=== PATIENT | female | born 1945 | race Caucasian/White ===

== ENCOUNTER 2016-04-18 12:29 | Observation (INO) | payer MEDICARE, OTHER ==
[~2016-04-18] VITALS: Ht 160 cm; Wt 54.2 kg
[~2016-04-18 12:29] MED LIST: ACET-789 PO; ADV1DS IH; ALBU2.5V4 NEB; ALBU8.5H2 IH; AMIO200T50 PO; ASP81TEC PO; ASPI-906 PO; ATOR40TA70 PO; BUDE6HFA INH; CALC-722 PO; CETI10TA17 PO; CETI10TA23 PO; CLOP75TA28 PO; CLOP75TA69 PO; CYAN10007 PO; DEXL60CA5 PO; DOCU-161 PO; DOXY100C2 PO; FURO20TA4 PO; HYDR-3714 PO; HYDR-757 PO; IBUP-30 PO; LACT1CAP66 PO; LEVO0.5P2 MC; LEVO50TA6 PO; LISI10TA2 PO; LISI40TA PO; LSNP10T PO; METO50TA2 PO; MTP50T PO; NITR0.4T SL; NYST1000 PO; PANT40SU PO; PRED10TA22 PO; PROM5SYR PO; SLMFT1E INH; TIOT18CA IH; TIOT4MIS2 IH; UBID200C16 PO; [UNRECOGNIZED DRUG - CODE] PO
--- OUTSIDE RECORDS SUMMARY | 2016-04-18 12:36 | XMS REPORT | Continuity of Care Document ---
Author Author [facility] Organization [facility] Address Unknown Phone Unavailable Support Name Relationship Address Phone CHASTITYLEONA HENINNG Porsche JAVIER Caregiver [phone] [facility] [place] [address] WEST MCCAULEY DO Caregiver [address] [place] [address] NORMA ALVARADO FACP CCDS [facility] Caregiver [address] [facility] [place] [address] [place] [address] SUZIE BRADEN Next Of Kin [address] [place] [address] Insurance Providers Payer Name Policy Number Subscriber Name Relationship Wps Medicare [id number] Anatoly White 18 Self / Same As Patient Comm Crossover Enter Ins Name [id number] Anatoly White 18 Self / Same As Patient Advance Directives Directive Response Recorded Date/Time Advance Directives No 04/14/13 2:13pm Health Care Power of Leg Assembler No 04/14/13 2:13pm Organ Donor No 04/14/13 2:13pm Problems No known problems or medical conditions. Medications Medication Dose Route Sig Days/Qty Instructions Order Date Discontinued Date Status Salmeterol Xinafoate/Fluticasone 0 INH BEDTIME 1 Qty 1 PUFF 02/24/13 Discontinued Salmeterol Xinafoate/Fluticasone 1 Puff IH Q AM 1 Qty 02/24/13 Discontinued Calcium Carb & Cit/Vitamin D3 2 Each PO DAILY 60 Qty 02/24/13 Discontinued Dexlansoprazole 60 Mg PO DAILY 30 Qty 02/24/13 04/07/13 Discontinued Lactobacillus Combination No.4 1 Cap PO DAILY 30 Qty 02/24/13 Active Tiotropium [place] 1 Puff IH DAILY 1 Qty 02/24/13 04/07/13 Discontinued Cyanocobalamin 1,000 Mcg PO DAILY 30 Qty 02/24/13 04/07/13 Discontinued Albuterol 2 Puff IH FOUR TIMES DAILY PRN WHEEZING 1 Qty 02/24/1304/07 Discontinued Aspirin 81 Mg PO DAILY 90 Qty 02/24/13 04/07/13 Discontinued Furosemide (Lasix) 20 Mg PO DAILY 30 Qty 02/24/13 04/07/13 Discontinued Ibuprofen 200 Mg PO EVERY 4HRS PRN MILD TO MODERATE PAIN 90 Qty 04/07/13 Discontinued Lisinopril 40 Mg PO DAILY 90 Qty 02/24/13 02/24/13 Discontinued Calcium Carb & Cit/Vitamin D3 1,200 Mg PO DAILY 60 Qty 02/24/13 Discontinued Metoprolol Tartrate (Lopressor) 25 Mg PO TWICE A DAY TAKES 1/2 (25MG) TABLET TWICE DAILY 04/07/13 Active Docusate Sodium 200 Mg PO DAILY 04/07/13 Active Furosemide (Lasix) 20 Mg PO EVERY AFTERNOON 04/07/13 Active Budesonide/Formoterol Fumarate 2 Puff INH TWICE A DAY 04/07/13 Active Tiotropium [place] 1 Cap IH DAILY 04/07/13 Active Atorvastatin Calcium 40 Mg PO BEDTIME 04/07/13 Active Aspirin 81 Mg PO EVERY AFTERNOON 04/07/13 Active Amiodarone Hcl 400 Mg PO DAILY TAKES 2 (200MG) TABLETS DAILY 04/07/13 04/22/13 Discontinued Nitroglycerin 0.4 Mg SL DIRECTED PRN CHEST PAIN 04/07/13 Active Acetaminophen/Hydrocodone Bitart 1-2 Tab PO EVERY 4HRS PRN PAIN NEEDED FOR PAIN 04/07/13 Active Albuterol 2 Puff IH FOUR TIMES DAILY PRN SHORTNESS OF BREATH Active Nystatin 5 Ml PO FOUR TIMES DAILY PLACE 5 ML IN EACH CHEEK HOLD FOR 30 SECONDS THEN SWISH AND SWALLOW 04/07/13 Active Doxycycline Hyclate (Vibramycin) 1 Each PO TWICE A DAY 14 Qty 04/22/13 Active Lisinopril 10 Mg PO DAILY@0900 30 Qty 04/22/13 Active Social History Social History Problem Response Recorded Date/Time Alcohol Use Denies Use 04/14/2013 2:13pm Recreational Drug Use No 04/14/2013 2:13pm Recent Foreign Travel No 04/14/2013 2:13pm Recent Infectious Disease Exposure No 04/14/2013 2:13pm Hospitalization with Isolation Denies 04/22/2013 4:33pm Hospital Discharge Instructions No hospital discharge instructions. Plan of Care No plan of care. Functional Status No functional status results. Allergies, Adverse Reactions, Alerts Allergen Type Severity Reaction Status Last Updated Penicillins ([id number]) Allergy Severe ANAPHYLAXIS Active 02/24/13 Hydrochlorothiazide Allergy Unknown Active 02/24/13 Penicillin g Allergy Unknown Active 02/16/13 Levofloxacin Allergy Unknown Active 02/24/13 Immunizations Name Given Type Date of Pneumonia Vaccine 12/29/08 Historical Date of Influenza Vaccine 02/05/13 Historical Tetanus Booster (TDap) Less than 5yrs Historical Vital Signs No known vital signs results. Results No known relevant diagnostic tests, laboratory data and/or discharge summary. Procedures No known history of procedures. Encounters Encounter Location Date/Time Discharged Recurring [facility] 06/17/14 1:00pm
--- NOTE | 2016-04-18 12:37 | ED Respiratory ---
General Chief Complaint: Respiratory Problems Stated Complaint: CHEST PAIN/SOA Source: patient Exam Limitations: no limitations History of Present Illness Time seen by provider: 12:35 Initial Comments Patient complains of increasing dyspnea and cough productive of yellow-green sputum for the past several days. She denies fevers or chills. Symptoms became much worse today and are associated with a burning in her epigastrium. This is been present since this morning. She has a history of COPD and is on home oxygen. Allergies and Home Medications Allergies Coded Allergies: Penicillins (Verified Allergy, Severe, ANAPHYLAXIS, 02/24/13) hydrochlorothiazide (Verified Allergy, Unknown, 02/24/13) levofloxacin (Verified Allergy, Unknown, 02/24/13) penicillin G (Verified Allergy, Unknown, 02/16/13) Home Medications Acetaminophen with Codeine 1 Each Tablet 1 TAB PO HS (Reported) Albuterol Sulfate 2.5 Mg/3 Ml Vial.neb 2.5 MG NEB 5XD PRN PRN SHORTNESS OF BREATH (Reported) Aspirin 81 Mg Tab.chew 81 MG PO DAILY @ 1700 (Reported) Atorvastatin Calcium 40 Mg Tablet 40 MG PO HS (Reported) Budesonide/Formoterol Fumarate 10.2 Gm Hfa.aer.ad 2 PUFF INH BID (Reported) Cetirizine HCl 10 Mg Tablet 10 MG PO DAILY (Reported) Clopidogrel Bisulfate 75 Mg Tablet #30 75 MG PO DAILY Prescribed by: LEONA COLES on 03/21/16 0843 Furosemide 20 Mg Tablet 20 MG PO EVERY OTHER DAY (Reported) Levothyroxine Sodium 50 Mcg Tablet 50 MCG PO DAILY@1700 (Reported) Lisinopril 10 Mg Tablet 10 MG PO DAILY (Reported) Metoprolol Tartrate 50 Mg Tablet 50 MG PO BID (Reported) Multivits,Stress Formula 1 Each Tablet 1 TAB PO DAILY (Reported) Nitroglycerin 0.4 Mg Btl 0.4 MG SL UD PRN PRN CHEST PAIN (Reported) 1 TAB EVERY 5 MINUTES FOR 3 DOSES NEEDED FOR CHEST PAIN Prednisone 10 Mg Tab.ds.pk #10 10 MG PO DAILY Starting 03-22-16 take 40mg (4 tabs)daily in the am. Then 30mg (3 tabs), then 20mg (2 tabs), then 10mg (1 tab), then stop. Prescribed by: LORIE LEMA on 03/21/16 0935 Promethazine HCl/Codeine 5 Ml Syrup 5-10 ML PO TID PRN PRN COUGH (Reported) Tiotropium [place] 4 Gm Mist.inhal 2 PUFF IH DAILY (Reported) Ubidecarenone 200 Mg Capsule 200 MG PO DAILY (Reported) Constitutional: No fever, malaise weakness EENTM: no symptoms reported Respiratory: cough dyspnea on exertion short of breath wheezing Cardiovascular: chest pain Gastrointestinal: abdominal pain Genitourinary: no symptoms reported Musculoskeletal: no symptoms reported All Other Systems Reviewed Negative Unless Noted: Yes Past Vtujbjo-Xxxvgk-Hzlzvy Hx Patient Social History Type Used: Cigarettes Former Smoker/When Quit: Jul 11, 2012 Immunizations Up To Date Tetanus Booster (TDap): Less than 5yrs Date of Pneumonia Vaccine: Dec 11, 2015 Date of Influenza Vaccine: Jan 11, 2016 Surgeries HX Surgeries: Yes Respiratory Hx Respiratory Disorders: Yes Respiratory Disorders: COPD Cardiovascular Hx Cardiac Disorders: Yes Neurological Hx Neurological Disorders: Yes (ANXIETY) Reproductive System Hx Reproductive Disorders: Yes (26 YRS. 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) HEENT Disorders: Cataract Loss of Vision: Denies Cancer Hx Cancer: No Psychosocial Hx Psychiatric Problems: No Integumentary HX Skin/Integumentary Disorder: No Reviewed Nursing Assessment Reviewed/Agree w Nursing PMH: Yes Family Medical History Family Medial History: Chest pain 09 SISTER Congestive heart failure G-MA Family history: Cardiovascular disease 03 FATHER (68) 09 SISTER Family history: Hypertension 03 FATHER 09 SISTER G-MA Stroke Physical Exam Vital Signs Vital Sign - Last 12Hours 04/18/16 04/18/16 12:33 12:59 Temp 97.2 Pulse 87 Resp 22 B/P 201/106 Pulse Ox 79 O2 Delivery Nasal Cannula O2 Flow Rate 3 FiO2 2 Capillary Refill : General Appearance: WD/WN mild distress Eyes: Bilateral Eye EOMI, Bilateral Eye Normal Inspection, Bilateral Eye PERRL HEENT: pharynx normal Neck: supple Respiratory: decreased breath soundsNo rales, wheezing Cardiovascular: regular rate, rhythm no gallop Gastrointestinal: non tender soft Extremities: normal inspection Neurologic/Psychiatric: alert normal mood/affect Skin: normal color warm/dry Progress/Results/Core Measures Results/Orders Lab Results Laboratory Tests Test 04/18/16 12:45 04/18/16 13:00 Range/Units Activated Partial Thromboplast Time 26 24-35 SEC Alanine Aminotransferase (ALT/SGPT) 28 0-55 U/L Albumin 4.0 3.2-4.5 G/DL Alkaline Phosphatase 76 40-136 U/L Anion Gap 9 5-14 MMOL/L Aspartate Amino Transf (AST/SGOT) 18 5-34 U/L B-Type Natriuretic Peptide 481.4 H <100.0 PG/ML BUN/Creatinine Ratio 16 Basophils # (Auto) 0.0 0.0-0.1 10^3/uL Basophils (%) (Auto) 0 0-10 % Blood Urea Nitrogen 14 7-18 MG/DL Calcium Level 8.7 8.5-10.1 MG/DL Carbon Dioxide Level 38 H 21-32 MMOL/L Chloride Level 94 L 98-107 MMOL/L Creatinine 0.88 0.60-1.30 MG/DL Eosinophils # (Auto) 0.6 H 0.0-0.3 10^3/uL Eosinophils (%) (Auto) 5 0-10 % Estimat Glomerular Filtration Rate > 60 Glucose Level 152 H 70-105 MG/DL Hematocrit 41 35-52 % Hemoglobin 12.3 11.5-16.0 G/DL INR Comment 0.9 0.8-1.4 Lymphocytes # (Auto) 1.4 1.0-4.0 X 10^3 Lymphocytes (%) (Auto) 13 12-44 % Magnesium Level 2.1 1.8-2.4 MG/DL Mean Corpuscular Hemoglobin 30 25-34 PG Mean Corpuscular Hemoglobin Concent 30 L 32-36 G/DL Mean Corpuscular Volume 100 H 80-99 FL Mean Platelet Volume 10.3 7.4-10.4 FL Monocytes # (Auto) 1.0 0.0-1.0 X 10^3 Monocytes (%) (Auto) 10 0-12 % Neutrophils # (Auto) 7.5 1.8-7.8 X 10^3 Neutrophils (%) (Auto) 71 42-75 % Platelet Count 287 130-400 10^3/uL Potassium Level 3.9 3.6-5.0 MMOL/L Prothrombin Time 11.9 L 12.2-14.7 SEC Red Blood Count 4.06 L 4.35-5.85 10^6/uL Red Cell Distribution Width 14.1 10.0-14.5 % Sodium Level 141 135-145 MMOL/L Total Bilirubin 0.6 0.1-1.0 MG/DL Total Protein 7.1 6.4-8.2 G/DL Troponin I < 0.30 <0.30 NG/ML White Blood Count 10.5 4.3-11.0 10^3/uL Bruce Test POSITIVE Arterial Blood Base Excess 12.9 H -2.5-2.5 MMOL/L Arterial Blood HCO3 41 *H 23-27 MMOL/L Arterial Blood Oxygen Saturation 92 L 94-100 % Arterial Blood Partial Pressure CO2 70 H 35-45 MMHG Arterial Blood Partial Pressure O2 56 L 79-93 MMHG Arterial Blood Total CO2 43.2 H 21.0-31.0 MMOL/L Arterial Blood pH 7.39 7.37-7.43 Blood Gas Inspired Oxygen 2 Blood Gas Patient Temperature 97.2 Blood Gas Puncture Site LEFT BRACHIAL Blood Gas Ventilator Setting NO My Orders Orders-JANICE BUITRAGO MD Cbc With Automated Diff (04/18/16 12:33) Magnesium (04/18/16 12:33) Chest 1 View, Ap/Pa Only (04/18/16 12:33) Ekg Tracing (04/18/16 12:33) Cardiac Profile 1 (04/18/16 12:33) Comprehensive Metabolic Panel (04/18/16 12:33) Protime With Inr (04/18/16 12:33) Partial Thromboplastin Time (04/18/16 12:33) O2 (04/18/16 12:33) Monitor-Rhythm Ecg Trace Only (04/18/16 12:33) Saline Lock/Iv-Start (04/18/16 12:33) BNP (04/18/16 12:33) Arterial Blood Gas (04/18/16 13:01) Albuterol/Ipra Inhalation Soln (Duoneb I (04/18/16 12:45) Svn Sm Volume Nebulizer Rt-Rfs (04/18/16 12:37) Methylprednisolone Sod Succ (Solu-Medrol (04/18/16 13:30) Medications Given in ED Current Medications Medications Dose Ordered Sig/Imelda Route Start Time Stop Time Status Last Admin Dose Admin Albuterol/ Ipratropium 3 ml ONCE ONCE INH 04/18/16 12:45 04/18/16 12:46 DC 04/18/16 12:54 3 ML Vital Signs/I&O Vital Sign - Last 12Hours 04/18/16 04/18/16 04/18/16 12:33 12:38 12:59 Temp 97.2 Pulse 87 Resp 22 B/P 201/106 Pulse Ox 79 O2 Delivery Nasal Cannula Nasal Cannula OxyMask O2 Flow Rate 3 5 FiO2 2 Progress Note : Time: 13:35 Progress Note Patient much more comfortable, breathing okay on oximask. Chest pain is resolved now that oxygen saturation is improved and blood pressures down. Admit for observation ECG Initial ECG Rhythm: Normal Sinus Initial ECG Intervals: Normal Initial ECG Impression: Nonspecific Changes Comment Left ventricular hypertrophy Diagnostic Imaging Comments Test x-ray shows COPD changes but nothing acute Departure Communication Time/Spoke to Admitting Phy: 13:[address] Mccauley who agrees to admit Impression Impression: Primary Impression: Acute exacerbation of chronic obstructive pulmonary disease (COPD) Additional Impression: Chest pain Disposition: ADMITTED INPATIENT Condition: Stable Decision to Admit Reason: Admit from ER (General) Decision to Admit/Date: Apr 18, 2016 Time/Decision to Admit Time: 13:36 Departure-Patient Inst. Referrals: WEST MCCAULEY DO (PCP/Family) Primary Care Physician JANICE BUITRAGO MD Apr 18, 2016 12:37
[2016-04-18] MEDS ORDERED: RT-ALBUTEROL/IPRATROPIUM 3 ML (DUONEB) VIAL INH ONE (12:45)
[2016-04-18 12:52] LABS: BASOPHILS % (AUTO) 0 % (0-10); EOSINOPHILS # (AUTO) 0.6 10^3/uL (0.0-0.3); EOSINOPHILS % (AUTO) 5 % (0-10); LYMPHOCYTES # (AUTO) 1.4 X 10^3 (1.0-4.0); LYMPHOCYTES % (AUTO) 13 % (12-44); MEAN CORPUSCULAR HEMOGLOBIN 30 PG (25-34); MEAN CORPUSCULAR HGB CONC 30 G/DL (32-36); MEAN CORPUSCULAR VOLUME 100 FL (80-99); MEAN PLATELET VOLUME 10.3 FL (7.4-10.4); MONOCYTES % (AUTO) 10 % (0-12); NEUTROPHILS # (AUTO) 7.5 X 10^3 (1.8-7.8); NEUTROPHILS % (AUTO) 71 % (42-75); PLATELET COUNT 287 10^3/uL (130-400); RED BLOOD COUNT 4.06 10^6/uL (4.35-5.85); RED CELL DISTRIBUTION WIDTH 14.1 % (10.0-14.5); WHITE BLOOD COUNT 10.5 10^3/uL (4.3-11.0)
[2016-04-18 13:01] LABS: INR 0.9 (0.8-1.4); PROTHROMBIN TIME PATIENT 11.9 SEC (12.2-14.7)
[2016-04-18 13:09] LABS: ALANINE AMINOTRANSFERASE 28 U/L (0-55); ANION GAP 9 MMOL/L (5-14); ASPARTATE AMINO TRANSFERASE 18 U/L (5-34); BILIRUBIN,TOTAL 0.6 MG/DL (0.1-1.0); BLOOD UREA NITROGEN 14 MG/DL (7-18); BUN/CREATININE RATIO 16; CALCIUM 8.7 MG/DL (8.5-10.1); CARBON DIOXIDE 38 MMOL/L (21-32); CHLORIDE 94 MMOL/L (98-107); CREATININE SERUM 0.88 MG/DL (0.60-1.30); GFR ESTIMATED > 60; GLUCOSE 152 MG/DL (70-105); MAGNESIUM 2.1 MG/DL (1.8-2.4); POTASSIUM 3.9 MMOL/L (3.6-5.0); SODIUM 141 MMOL/L (135-145); TOTAL PROTEIN 7.1 G/DL (6.4-8.2)
[2016-04-18 13:10] LABS: ABG BASE EXCESS 12.9 MMOL/L (-2.5-2.5); ABG OXYGEN SATURATION 92 % (94-100); ABG PCO2 70 MMHG (35-45); ABG PH 7.39 (7.37-7.43); ABG PO2 56 MMHG (79-93); ABG TCO2 43.2 MMOL/L (21.0-31.0)
[2016-04-18 13:11] LABS: ABG HCO3 41 MMOL/L (23-27); ALLENS TEST POSITIVE
[2016-04-18 13:12] LABS: PATIENT TEMP 97.2
[2016-04-18] MEDS ORDERED: methylPREDNISolone 125 MG (Solu-MEDROL) VIAL IVP ONE (13:30)
--- NOTE | 2016-04-18 13:31 | Diagnostic Imaging Report ---
INDICATION: Chest pain, shortness of air for the past few days. COMPARISON STUDY: Chest from March 21. FINDINGS: Portable upright view of the chest demonstrates previous coronary bypass graft changes. The heart size and vascularity are normal. COPD changes are again identified. There are no focal abnormalities. IMPRESSION: Stable chest with COPD. Dictated by: Dictated on workstation # [id number]
[2016-04-18 14:15] VITALS: BP 158/67
[2016-04-18] MEDS ORDERED: FURO20TA4 PO (15:00)
[2016-04-18] MEDS ORDERED: PANT40TA3 PO (15:00)
[2016-04-18] MEDS ORDERED: ACET1TAB43 PO (15:00)
[2016-04-18] MEDS ORDERED: CATHETER FLUSH 10 ML SYR IV PRN (15:00)
[2016-04-18] MEDS ORDERED: CODE118S2 PO (15:00)
[2016-04-18] MEDS ORDERED: CLOP75TA69 PO (15:00)
[2016-04-18 16:00] VITALS: BP 169/82
[2016-04-18] MEDS ORDERED: RT-ALBUTEROL SULF 2.5 MG/3 ML PRE-MIX VIAL INH PRN (16:00)
[2016-04-18] MEDS ORDERED: ASPIRIN 81 MG CHEW (CHILDREN'S ASA) PO SCH (17:00)
[2016-04-18] MEDS: ENOXAPARIN 60 MG/0.6 ML (LOVENOX) SYR SC SCH (18:24)
[2016-04-18] MEDS ORDERED: NITROGLYCERIN SUBLINGUAL 0.4 MG TAB (NITROSTAT) SL PRN (18:30)
[2016-04-18] MEDS ORDERED: PROMETHAZINE/ CODEINE SYRUP 5 ML UDC PO PRN (18:30)
--- NOTE | 2016-04-18 18:36 | History & Physicial ---
History of Present Illness History of Present Illness Reason for visit/HPI patient called the office stating that pressure was 209/111. Patient complaining of shortness of breath and chest pain with exertion. Patient had a stent put in last month Patient states with exertion she had short of breath and chest painarea Patient has COPD and on oxygen. Review surgery stent, open heart and hysterectomy and cataracts. Family history heart disease and family area Lungs short of breath with exertion. Heart pressure in the chest. Patient admitted Date of Admission Apr 18, 2016 at 13:38 I consulted on this patient on 04/18/16 18:31 Attending Physician Sanju Mccauley DO Admitting Physician Sanju Mccauley DO Consult Allergies and Home Medications Allergies Coded Allergies: Penicillins (Verified Allergy, Severe, ANAPHYLAXIS, 02/24/13) hydrochlorothiazide (Verified Allergy, Unknown, 02/24/13) levofloxacin (Verified Allergy, Unknown, 02/24/13) penicillin G (Verified Allergy, Unknown, 02/16/13) Home Medications Acetaminophen with Codeine 1 Each Tablet 1 TAB PO HS (Reported) Albuterol Sulfate 2.5 Mg/3 Ml Vial.neb 2.5 MG NEB 5XD PRN PRN SHORTNESS OF BREATH (Reported) Aspirin 81 Mg Tab.chew 81 MG PO HS (Reported) Atorvastatin Calcium 40 Mg Tablet 40 MG PO HS (Reported) Budesonide/Formoterol Fumarate 10.2 Gm Hfa.aer.ad 2 PUFF INH BID (Reported) Cetirizine HCl 10 Mg Tablet 10 MG PO HS (Reported) Clopidogrel Bisulfate 75 Mg Tablet 75 MG PO DAILY (Reported) Furosemide 20 Mg Tablet 20 MG PO Q48H (Reported) Levothyroxine Sodium 50 Mcg Tablet 50 MCG PO 1700 (Reported) Lisinopril 10 Mg Tablet 10 MG PO DAILY (Reported) Metoprolol Tartrate 50 Mg Tablet 50 MG PO BID (Reported) Multivits,Stress Formula 1 Each Tablet 1 TAB PO DAILY (Reported) Nitroglycerin 0.4 Mg Btl 0.4 MG SL UD PRN PRN CHEST PAIN (Reported) 1 TAB EVERY 5 MINUTES FOR 3 DOSES NEEDED FOR CHEST PAIN Pantoprazole Sodium 40 Mg Tablet.dr 40 MG PO DAILY (Reported) Promethazine HCl/Codeine 118 Ml Syrup 10 ML PO TID PRN PRN COUGH (Reported) Tiotropium [place] 4 Gm Mist.inhal 2 PUFF IH DAILY (Reported) Ubidecarenone 200 Mg Capsule 200 MG PO DAILY (Reported) Past Fzwobgy-Znapdw-Dtnvis Hx Patient Social History Marrital Status: Employed/Student: unemployed Alcohol Use: Denies Use Recreational Drug Use: No Smoking Status: Former Smoker Former smoker/When Quit: Jul 11, 2012 Type Used: Cigarettes Physical Abuse Screen: No Sexual Abuse: No Recent Foreign Travel: No Contact w/other who traveled: No Recent Hopitalizations: No Recent Infectious Disease Expo: No Immunizations Up To Date Tetanus Booster (TDap): Less than 5yrs Date of Pneumonia Vaccine: Feb 07, 2016 Date of Influenza Vaccine: Feb 07, 2016 Seasonal Allergies Seasonal Allergies: No Surgeries HX Surgeries: Yes (CARDIAC CATH) Surgeries: CABG Respiratory Hx Respiratory Disorders: Yes Respiratory Disorders: COPD Cardiovascular Hx Cardiovascular Disorders: Yes Cardiac Disorders: Coronary Artery Disease, Hypertension Neurological Hx Neurological Disorders: Yes (ANXIETY) Reproductive System Hx Reproductive Disorders: Yes (26 YRS. 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) HEENT Disorders: Cataract Loss of Vision: Denies Hearing Impairment: Denies Cancer Hx Cancer: No Psychosocial Hx Psychiatric Problems: No Integumentary HX Skin/Integumentary Disorder: No Blood Transfusions Adverse Reaction to a Blood Tr: No Reviewed Nursing Assessment Reviewed/Agree w Nursing PMH: Yes Family Medical History Family Hx: Chest pain 09 SISTER Congestive heart failure G-MA Family history: Cardiovascular disease 03 FATHER (68) 09 SISTER Family history: Hypertension 03 FATHER 09 SISTER G-MA Stroke Constitutional: weakness EENTM: no symptoms reported Respiratory: dyspnea on exertion short of breath Cardiovascular: chest pain Gastrointestinal: no symptoms reported Genitourinary: no symptoms reported Physical Exam Vital Signs Vital Sign - Last 12Hours 04/18/16 04/18/16 12:33 12:59 Temp 97.2 Pulse 87 Resp 22 B/P 201/106 Pulse Ox 79 O2 Delivery Nasal Cannula O2 Flow Rate 3 FiO2 2 Capillary Refill : Less Than 3 Seconds General Appearance: No Apparent Distress Thin Eyes: Bilateral Eye Normal Inspection HEENT: Normal ENT Inspection Neck: Normal Inspection Respiratory: No Accessory Muscle Use No Respiratory Distress Decreased Breath Sounds Cardiovascular: Regular Rate, Rhythm Gastrointestinal: Non Tender Soft Assessment/Plan Assessment and Plan malignant hypertension. COPD with acute exacerbation. Chest pain. Coronary artery disease Stent put in less than a month ago coronary. Hyperlipidemia Clinical Quality Measures DVT/VTE Risk/Contraindication: Risk Factor Score Per Nursin RFS Level Per Nursing on Admit: 4+=Very High SANJU MCCAULEY DO Apr 18, 2016 18:36
[2016-04-18] MEDS: RT-ADVAIR HFA 115/21 MCG PER PUFF IH SCH (19:08)
[2016-04-18] MEDS: RT-ALBUTEROL SULF 2.5 MG/3 ML PRE-MIX VIAL INH SCH ×2 (19:08→22:16)
[2016-04-18 20:00] VITALS: BP 163/78
[2016-04-18] MEDS: AZITHROMYCIN IV ADD-VANTAGE 500 MG in SODIUM CHLORIDE (ADD-VANTAGE) 250 ML IV SCH (20:11)
[2016-04-18] MEDS: meTOprolol TARTRATE 50 MG (LOPRESSOR) TAB PO SCH (20:26)
[2016-04-18] MEDS ORDERED: LORATADINE (CLARITIN) 10 MG TAB PO SCH (21:00)
[2016-04-18] MEDS ORDERED: APAP 300 MG/CODEINE 30 MG (TYLENOL #3) TAB PO SCH (21:00)
[2016-04-18] MEDS ORDERED: ATORVASTATIN 40 MG (LIPITOR) TABLET PO SCH (21:00)
[2016-04-18] MEDS: methylPREDNISolone 125 MG (Solu-MEDROL) VIAL IVP SCH (22:37)
[2016-04-18] MEDS: CATHETER FLUSH 10 ML SYR IV SCH (22:38)
[2016-04-19 00:25] VITALS: BP 143/82
[2016-04-19] MEDS: RT-ALBUTEROL SULF 2.5 MG/3 ML PRE-MIX VIAL INH SCH ×4 (02:10→14:46)
[2016-04-19] MEDS: ENOXAPARIN 60 MG/0.6 ML (LOVENOX) SYR SC SCH (04:21)
[2016-04-19 04:35] VITALS: BP 116/62
[2016-04-19] MEDS: methylPREDNISolone 125 MG (Solu-MEDROL) VIAL IVP SCH ×2 (06:07→14:00)
[2016-04-19] MEDS: CATHETER FLUSH 10 ML SYR IV SCH ×2 (06:07→14:00)
[2016-04-19 06:37] LABS: BASOPHILS % (AUTO) 0 % (0-10); EOSINOPHILS % (AUTO) 0 % (0-10); LYMPHOCYTES # (AUTO) 0.5 X 10^3 (1.0-4.0); LYMPHOCYTES % (AUTO) 6 % (12-44); MEAN CORPUSCULAR HEMOGLOBIN 30 PG (25-34); MEAN CORPUSCULAR HGB CONC 31 G/DL (32-36); MEAN CORPUSCULAR VOLUME 98 FL (80-99); MEAN PLATELET VOLUME 10.6 FL (7.4-10.4); MONOCYTES # (AUTO) 0.2 X 10^3 (0.0-1.0); MONOCYTES % (AUTO) 3 % (0-12); NEUTROPHILS # (AUTO) 8.1 X 10^3 (1.8-7.8); NEUTROPHILS % (AUTO) 92 % (42-75); PLATELET COUNT 282 10^3/uL (130-400); RED BLOOD COUNT 4.04 10^6/uL (4.35-5.85); RED CELL DISTRIBUTION WIDTH 13.8 % (10.0-14.5); WHITE BLOOD COUNT 8.9 10^3/uL (4.3-11.0)
[2016-04-19] MEDS ORDERED: MULTIVIT W/MINERALS TAB (THERAGRAN M) PO SCH (07:00)
[2016-04-19] MEDS ORDERED: PANTOPRAZOLE 40 MG (PROTONIX) TAB PO SCH (07:00)
[2016-04-19 07:05] LABS: ALANINE AMINOTRANSFERASE 27 U/L (0-55); ALBUMIN 4.1 G/DL (3.2-4.5); ANION GAP 9 MMOL/L (5-14); ASPARTATE AMINO TRANSFERASE 20 U/L (5-34); BILIRUBIN,TOTAL 0.5 MG/DL (0.1-1.0); BLOOD UREA NITROGEN 13 MG/DL (7-18); BUN/CREATININE RATIO 15; CALCIUM 9.2 MG/DL (8.5-10.1); CARBON DIOXIDE 34 MMOL/L (21-32); CHLORIDE 97 MMOL/L (98-107); CREATININE SERUM 0.86 MG/DL (0.60-1.30); GFR ESTIMATED > 60; GLUCOSE 174 MG/DL (70-105); POTASSIUM 4.1 MMOL/L (3.6-5.0); SODIUM 140 MMOL/L (135-145)
[2016-04-19] MEDS: RT-ADVAIR HFA 115/21 MCG PER PUFF IH SCH (07:15)
[2016-04-19 07:49] LABS: BAND NEUTROPHILS 0 %; BASOPHILS % (MANUAL) 0 %; EOSINOPHILS % (MANUAL) 0 %; LYMPHOCYTES % (MANUAL) 5 %; NEUTROPHILS % (MANUAL) 93 %
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
[2016-04-19 08:00] VITALS: BP 164/78
[2016-04-19] MEDS ORDERED: FUROSEMIDE 20 MG (LASIX) TAB PO NR (08:00)
[2016-04-19] MEDS ORDERED: UMECLIDINIUM BROMIDE (INCRUSE ELLIPTA) 7'S IH SCH ×2 (08:00)
[2016-04-19] MEDS ORDERED: lisINopril 10 MG (PRINIVIL) TAB PO SCH (09:00)
[2016-04-19] MEDS ORDERED: CLOPIDOGREL 75 MG (PLAVIX) TABLET PO SCH (09:00)
[2016-04-19] MEDS ORDERED: NON-FORMULARY MEDICATION 1 EA EA (Ubidecarenone (Co Q-10) 200 MG) PO SCH (09:00)
[2016-04-19] MEDS: AZITHROMYCIN IV ADD-VANTAGE 500 MG in SODIUM CHLORIDE (ADD-VANTAGE) 250 ML IV SCH (09:01)
[2016-04-19] MEDS: meTOprolol TARTRATE 50 MG (LOPRESSOR) TAB PO SCH (09:06)
--- NOTE | 2016-04-19 11:02 | Consultation-Cardiology ---
HPI-Cardiology Cardiology Consultation: Date of Consultation 04/19/16 Date of Admission Attending Physician Sanju Morris DO Admitting Physician Sanju Morris DO Consulting Physician Melanie LOU MD HPI: Chief Complaint: chest pressure, shortness of breath this is a pleasant 71-year-old lady who is a patient of Dr. Morris and Dr. Pal. She has a history of CABG in [place] in 2012. She also has history of peripheral arterial disease treated with MASON LINER/stents by Dr. Pal. she presents with shortness of breath and chest pressure. The chest pressure is not similar to the chest pain that she had before cardiac surgery. She also complains of cough. Review of Systems-Cardiology Review of Systems Constitutional: No As described under HPI, No no symptoms reported, No chills, No fever, No lightheadedness, No malaise, No tiredness, No weight loss, No weight gain, No other Eyes: No As described under HPI, No no symptoms reported, No blindness, No blurred vision, No contact lenses, No drainage, No decreased acuity, No foreign body sensation, No glasses, No inflammation, No pain, No photophobia, No previous injury, No shadows, No tunnel vision, No other, No vision change Ears/Nose/Throat: No As described under HPI, No no symptoms reported, No chronic hearing loss, No epistaxis, No ear discharge, No ear pain, No loose teeth, No mouth pain, No mouth swelling, No nasal drainage, No nose pain, No recent hearing loss, No throat pain, No throat swelling, No ulcerations, No other Respiratory: cough shortness of breath Cardiovascular: No no symptoms reported, No As described under HPI, chest painNo edema, No irregular heart rate, No lightheadedness, No palpitations, No syncope, No other Gastrointestinal: No no symptoms reported, No As described under HPI, No abdomen distended, No abdominal pain, No blood streaked bowels, No constipation , No diarrhea, No difficulty swallowing, No nausea, No poor appetite, No poor fluid intake, No rectal bleeding, No vomiting, No other, No nausea/vomiting/ diarrhea, No stool coloration changes Genitourinary: No no symptoms reported, No As described under HPI, No burning, No dysuria, No discharge, No frequency, No flank pain, No hematuria, No incontinence, No pain, No urgency, No other, No urine frequency changes, No urine coloration changes Musculoskeletal: No no symptoms reported, No As describe under HPI, No back pain, No gout, No joint pain, No joint swelling, No muscle pain, No muscle stiffness, No neck pain, No other Skin: No no symptoms reported, No As described under HPI, No change in color, No change in hair/nails, No dryness, No lesions, No lumps, No rash, No other, No skin related problems, No ulcerations, No rash on exposed areas, No ulcerations on exposed areas Psychiatric/Neurological: No As described under HPI, No anxiety, No depression , No emotional problems, No focal weakness, No headache, No no symptoms reported , No numbness, No other, No pre-existing deficit, No seizure, No syncope, No tingling, No tremors, No weakness All Other Systems Reviewed Negative Unless Noted: Yes SCL-Ldrpme-Xlquzl Hx Patient Social History Marrital Status: Employed/Student: unemployed Alcohol Use: Denies Use Recreational Drug Use: No Smoking Status: Former Smoker Former smoker/When Quit: Jul 11, 2012 Type Used: Cigarettes Recent Foreign Travel: No Recent Infectious Disease Expo: No Hospitalization with Isolation: Denies Physical Abuse Screen: No Sexual Abuse: No Immunizations Up To Date Tetanus Booster (TDap): Less than 5yrs Date of Pneumonia Vaccine: Feb 07, 2016 Date of Influenza Vaccine: Feb 07, 2016 Past Medical History PMH As described under Assessment. Family Medical History Family History: Chest pain 09 SISTER Congestive heart failure G-MA Family history: Cardiovascular disease 03 FATHER (68) 09 SISTER Family history: Hypertension 03 FATHER 09 SISTER G-MA Stroke Allergies and Home Medications Allergies Coded Allergies: Penicillins (Verified Allergy, Severe, ANAPHYLAXIS, 02/24/13) hydrochlorothiazide (Verified Allergy, Unknown, 02/24/13) levofloxacin (Verified Allergy, Unknown, 02/24/13) penicillin G (Verified Allergy, Unknown, 02/16/13) Home Medications Acetaminophen with Codeine 1 Each Tablet 1 TAB PO HS (Reported) Albuterol Sulfate 2.5 Mg/3 Ml Vial.neb 2.5 MG NEB 5XD PRN PRN SHORTNESS OF BREATH (Reported) Aspirin 81 Mg Tab.chew 81 MG PO HS (Reported) Atorvastatin Calcium 40 Mg Tablet 40 MG PO HS (Reported) Budesonide/Formoterol Fumarate 10.2 Gm Hfa.aer.ad 2 PUFF INH BID (Reported) Cetirizine HCl 10 Mg Tablet 10 MG PO HS (Reported) Clopidogrel Bisulfate 75 Mg Tablet 75 MG PO DAILY (Reported) Furosemide 20 Mg Tablet 20 MG PO Q48H (Reported) Levothyroxine Sodium 50 Mcg Tablet 50 MCG PO 1700 (Reported) Lisinopril 10 Mg Tablet 10 MG PO DAILY (Reported) Metoprolol Tartrate 50 Mg Tablet 50 MG PO BID (Reported) Multivits,Stress Formula 1 Each Tablet 1 TAB PO DAILY (Reported) Nitroglycerin 0.4 Mg Btl 0.4 MG SL UD PRN PRN CHEST PAIN (Reported) 1 TAB EVERY 5 MINUTES FOR 3 DOSES NEEDED FOR CHEST PAIN Pantoprazole Sodium 40 Mg Tablet.dr 40 MG PO DAILY (Reported) Promethazine HCl/Codeine 118 Ml Syrup 10 ML PO TID PRN PRN COUGH (Reported) Tiotropium [place] 4 Gm Mist.inhal 2 PUFF IH DAILY (Reported) Ubidecarenone 200 Mg Capsule 200 MG PO DAILY (Reported) Physical Exam-Cardiology Physical Exam Vital Signs/I&O Vital Sign - Last 12Hours 04/19/16 04/19/16 04/19/16 04/19/16 00:25 02:10 04:35 07:16 Temp 97.2 97.4 Pulse 75 77 Resp 20 20 B/P 143/82 116/62 Pulse Ox 97 95 96 94 O2 Delivery Nasal Cannula Nasal Cannula Nasal Cannula Nasal Cannula O2 Flow Rate 3.00 3.00 FiO2 3 04/19/16 04/19/16 04/19/16 04/19/16 07:19 08:00 09:00 10:36 Temp 97.8 Pulse 95 Resp 20 B/P 164/78 Pulse Ox 94 92 95 O2 Delivery Nasal Cannula Nasal Cannula Nasal Cannula Nasal Cannula O2 Flow Rate 3.00 4.00 FiO2 3 3 04/19/16 10:38 Pulse Ox 94 O2 Delivery Nasal Cannula FiO2 3 Intake and Output 04/19/16 00:00 Intake Total 1132 ml Balance 1132 ml Capillary Refill : Less Than 3 Seconds Constitutional: No appears stated age, No AAO x 3, No apparent distress, No PERRL, No well-developed, No well-nourished, No other HEENT: No PERRL, No normal ENT inspection, No TMs normal, No pharynx normal, No scleral icterus (R), No scleral icterus (L), No pale conjunctivae (R), No pale conjunctivae (L), No photophobia, No TM abnormal (R), No TM abnormal (L), No pharyngeal erythema, No tonsillar exudate, No other, No discharge, No EOMI, No hearing is well preserved, No hard of hearing, No oral hygience is good, No ulceration, No xanthelasmas are seen Neck: No non-tender, No full range of motion, No supple, No normal inspection, No carotid bruit, No limited range of motion, No lymphadenopathy (R), No lymphadenopathy (L), No tender lateral, No tender midline, No thyromegaly, No other, No carotid pulses are 2 + bilaterally, No with good upstrokes Respiratory: No accessory muscle use, No respiratory distress, No chest tender , No chest expansion is symmetric, No chest is bilaterally symmetric, No lungs clear to percussion, No lungs clear to auscultation, No crackles, No rhonchi, No rales, No stridor, No wheezing, No pleural rub, No other Cardiovascular: No regular rate-rhythm, No irregularly irregular, No extra beats, No parasternal heave is noted, No JVD, No edema, No bradycardia, No tachycardia, No point of maximal impulse, No cardiac thrills are palpable, No S1 and S2, No gallop/S3, No gallop/S4, No diastolic murmur, No systolic murmur, No friction rub, No click, No other Gastrointestinal: No tender, No soft, No round, No distended, No pulsatile mass , No organomegaly, No guarding, No rebound, No tenderness, No hernia, No mass, No audible bowel sounds, No abnormal bowel sounds, No abdominal bruits, No spleenomegaly, No other Rectal: deferred Extremities: No normal range of motion, No non-tender, No normal inspection, No pedal edema, No calf tenderness, No normal capillary refill, No pelvis stable , No calf tenderness, No inflammation, No pedal edema, No slow capillary refill , No swelling, No other, No abrasion, No clubbing, No cyanosis, No ecchymosis, No laceration, No no lower extremity edema bilateral, No significant edema, No tenderness, No wound Neurologic/Psychiatric: No rough patcher II-XII nml as tested, No no motor/sensory deficits, No alert, No normal mood/affect, No oriented x 3, No abnormal cerebellar tests, No abnormal rough patcher II-XII, No abnormal gait, No aphasia, No EOM palsy, No facial droop, No motor weakness, No sensory deficit, No depressed affect, No disoriented x 3, No other, No grossly intact, No power is 5/5 both on sides Skin: No normal color, No warm/dry, No cyanosis, No cool, No diaphoresis, No damp, No ecchymosis, No jaundice, No mottled, No pallor, No rash, No tattoos/ piercings, No ulcerations, No rash on exposed areas, No ulcerations on exposed areas, No other Data Review Labs Laboratory Tests 04/18/16 12:45: Activated Partial Thromboplast Time 26, Alanine Aminotransferase (ALT/SGPT) 28, Albumin 4.0, Alkaline Phosphatase 76, Anion Gap 9, Aspartate Amino Transf (AST/ SGOT) 18, B-Type Natriuretic Peptide 481.4H, BUN/Creatinine Ratio 16, Basophils # (Auto) 0.0, Basophils (%) (Auto) 0, Blood Urea Nitrogen 14, Calcium Level 8.7 , Carbon Dioxide Level 38H, Chloride Level 94L, Creatinine 0.88, Eosinophils # ( Auto) 0.6H, Eosinophils (%) (Auto) 5, Estimat Glomerular Filtration Rate > 60, Glucose Level 152H, Hematocrit 41, Hemoglobin 12.3, INR Comment 0.9, Lymphocytes # (Auto) 1.4, Lymphocytes (%) (Auto) 13, Magnesium Level 2.1, Mean Corpuscular Hemoglobin 30, Mean Corpuscular Hemoglobin Concent 30L, Mean Corpuscular Volume 100H, Mean Platelet Volume 10.3, Monocytes # (Auto) 1.0, Monocytes (%) (Auto) 10, Neutrophils # (Auto) 7.5, Neutrophils (%) (Auto) 71, Platelet Count 287, Potassium Level 3.9, Prothrombin Time 11.9L, Red Blood Count 4.06L, Red Cell Distribution Width 14.1, Sodium Level 141, Total Bilirubin 0.6, Total Protein 7.1, Troponin I < 0.30, White Blood Count 10.5 04/18/16 13:00: Bruce Test POSITIVE, Arterial Blood Base Excess 12.9H, Arterial Blood HCO3 41*H , Arterial Blood Oxygen Saturation 92L, Arterial Blood Partial Pressure CO2 70H , Arterial Blood Partial Pressure O2 56L, Arterial Blood Total CO2 43.2H, Arterial Blood pH 7.39, Blood Gas Inspired Oxygen 2, Blood Gas Patient Temperature 97.2, Blood Gas Puncture Site LEFT BRACHIAL, Blood Gas Ventilator Setting NO 04/18/16 18:35: Troponin I < 0.30 04/19/16 00:32: Troponin I < 0.30 04/19/16 06:19: Alanine Aminotransferase (ALT/SGPT) 27, Albumin 4.1, Alkaline Phosphatase 89, Anion Gap 9, Aspartate Amino Transf (AST/SGOT) 20, BUN/Creatinine Ratio 15, Band Neutrophils 0, Basophils # (Auto) 0.0, Basophils % (Manual) 0, Basophils (% ) (Auto) 0, Blood Morphology Comment NORMAL, Blood Urea Nitrogen 13, Calcium Level 9.2, Carbon Dioxide Level 34H, Chloride Level 97L, Creatinine 0.86, Eosinophils # (Auto) 0.0, Eosinophils % (Manual) 0, Eosinophils (%) (Auto) 0, Estimat Glomerular Filtration Rate > 60, Glucose Level 174H, Hematocrit 40, Hemoglobin 12.1, Lymphocytes # (Auto) 0.5L, Lymphocytes % (Manual) 5, Lymphocytes (%) (Auto) 6L, Mean Corpuscular Hemoglobin 30, Mean Corpuscular Hemoglobin Concent 31L, Mean Corpuscular Volume 98, Mean Platelet Volume 10.6H, Monocytes # (Auto) 0.2, Monocytes % (Manual) 2, Monocytes (%) (Auto) 3, Neutrophils # (Auto) 8.1H, Neutrophils % (Manual) 93, Neutrophils (%) (Auto) 92H , Platelet Count 282, Potassium Level 4.1, Red Blood Count 4.04L, Red Cell Distribution Width 13.8, Sodium Level 140, Total Bilirubin 0.5, Total Protein 7.0, White Blood Count 8.9 ECG Impression ECG Initial ECG Rhythm: Normal Sinus Initial ECG Impression: Nonspecific Changes A/P-Cardiology Assessment/Admission Diagnosis chest pressure, shortness of breath, history of coronary artery disease, PAD, possible COPD Plan COPD/bronchitis: Deferred to Dr. Morris. Acute coronary syndrome has been ruled out with negative EKG and negative serial troponins. continue current therapy for coronary artery disease and peripheral arterial disease. We'll request a pharmacological nuclear stress test with Dr. Pal on Saturday. The patient also complains of shortness of breath. She is not in florid congestive heart failure. BNP is mildly elevated. Echocardiogram is recommended. Clinical Quality Measures DVT/VTE Risk/Contraindication: Risk Factor Score Per Nursin RFS Level Per Nursing on Admit: 4+=Very High Contraindications-Pharm: Other *list below* Melanie LOU MD Apr 19, 2016 11:02 am
--- NOTE | 2016-04-19 11:08 | Diagnostic Imaging Report ---
PA and lateral views of the chest. INDICATION: COPD. FINDINGS: There is pulmonary hyperinflation with prominent interstitial markings seen. It is similar to 04/18/2016 exam and other prior studies compatible with areas of interstitial scarring. No focal consolidation. The heart size is normal. No effusion or pneumothorax. The mediastinum and romulo appear unchanged. Sternotomy wires are noted. IMPRESSION: COPD. Dictated by: Dictated on workstation # [id number]
[2016-04-19 12:00] VITALS: BP 144/78
[2016-04-19] MEDS ORDERED: PRED10TA22 PO (14:33)
--- NOTE | 2016-04-19 14:42 | ECHOCARDIOGRAPHY REPORT ---
PROCEDURE PHYSICIAN: BERNARDO FUNK DATE OF PROCEDURE: 04/19/2016 TWO DIMENSIONAL ECHOCARDIOGRAM REPORT PRIMARY PHYSICIAN: OTHER PHYSICIAN: REFERRING PHYSICIAN: ORDERING PHYSICIAN: ATTENDING PHYSICIAN: Dr. Sanju Morris FAMILY PHYSICIAN: READING PHYSICIAN: Dr. Vj Funk INDICATION FOR THE PROCEDURE: Shortness of breath, chest pressure. MEASUREMENTS DERIVED VALUES LV DIAMETER (LAX) NORMALS NORMALS Diastolic (3.6-5.2) Eject. Fract. (60%+/-6%) Systolic (2.3-3.9) Diastolic Vol. % Shortening (0.22-0.42) Systolic Vol. Aortic Root IVS THICKNESS Diastolic (0.6-1.1) LVPW THICKNESS Diastolic (0.6-1.1) LA DIAMETER Systolic (2.1-3.7) FINDINGS: 1. Sinus rhythm. 2. Left atrial dimensions are normal. Left atrial diameter is 3.6 cm. 3. Aortic root dimensions are normal. 4. Left ventricular systolic function is preserved. Left ventricular ejection fraction is 55 to 60%. No concentric LVH is present. 5. There is no wall motion abnormality. 6. There is mild RV enlargement and right atrial enlargement noted. Mildly reduced RV systolic function is noted. 7. There is no evidence of pericardial effusion. 8. Mild diastolic dysfunction is present. 9. IVC diameter is enlarged which is 2.5 cm. This suggests increased right atrial pressure. VALVULAR STRUCTURE OF THE HEART: The aortic valve is sclerotic with no significant stenosis or regurgitation. There is mild mitral annular calcification with mild mitral regurgitation. There is trace pulmonic regurgitation. Moderate to severe tricuspid regurgitation is noted with RVSP of 72 mmHg. CONCLUSION: 1. LV size and function is normal. 2. LVEF is 55 to 60%. 3. Moderate diastolic dysfunction is present. 4. Mild RV and RA enlargement is noted with mildly reduced RV systolic function. 5. There is evidence of increased right atrial pressure. 6. There is moderate to severe tricuspid regurgitation with severe pulmonary hypertension is noted. Job ID: [id number] Dictated Date: 04/19/2016 11:31:24 Environmental Consultant Date: 04/19/2016 14:35:31 / negar CRUZ
[2016-04-19 16:00] VITALS: BP 163/72
[2016-04-19 16:15] VITALS: BP 163/72
[2016-04-19] MEDS ORDERED: LEVOTHYROXINE 50 MCG (LEVOTHROID) TAB PO SCH (17:00)
--- NOTE | 2016-04-20 08:13 | Clinic Account Progress/Dx ---
Clinic Account Progress/Dx DIAGNOSIS: Diagnosis COPD with acute exacerbation. Chest pain. Coronary artery disease. Malignant hypertension. Hyperlipidemia. Moderate diastolic dysfunction WEST MCCAULEY DO Apr 20, 2016 08:13
[2016-04-20] MEDS ORDERED: FUROSEMIDE 20 MG (LASIX) TAB PO SCH (09:00)
== END 2016-04-19 14:25 | disposition home or self-care (01) ==
LOC: EDUNIT# 12:29 → ER 12:32 → 4TH 13:38 → UNDOADMOB 13:38 → 4TH 14:15
PROVIDERS: ADMIT Family Medicine; ATTEND Family Medicine
DX: J44.1 Chronic obstructive pulmonary disease with (acute) exacerbation (principal); R07.9 Chest pain, unspecified; I25.10 Atherosclerotic heart disease of native coronary artery without angina pectoris; I10 Essential (primary) hypertension; E78.5 Hyperlipidemia, unspecified; Z99.81 Dependence on supplemental oxygen; Z95.820 Peripheral vascular angioplasty status with implants and grafts; Z87.891 Personal history of nicotine dependence; Z95.1 Presence of aortocoronary bypass graft
CPT/HCPCS: 36415; 71010; 71020; 80053; 82805; 83735; 83880; 84484; 85007; 85025; 85027; 85610; 85730; 87070; 87186; 87205; 93005; 93041; 93306; 94640; 94760; 96374; G0378

== ENCOUNTER → 2016-07-02 | Outpatient (CLI) | payer MEDICARE, OTHER ==
[~2016-07-02] MED LIST changes: +ACET1TAB43 PO; +ALBU90AE IH; +CODE118S2 PO; +GLYC10.7 IH; +PANT40TA3 PO
--- NOTE | 2016-07-02 12:59 | Diagnostic Imaging Report ---
EXAMINATION: PA and lateral views of the chest. INDICATION: Cough. Right chest wall pain. COPD. Findings: The lungs are clear except for mild left perihilar scarring. The heart size is normal. There is no effusion or pneumothorax. The mediastinum and romulo appear unremarkable. Suture line is seen in the upper left lung. Sternotomy wires are noted. IMPRESSION: No acute process. Dictated by: Dictated on workstation # [id number]
== END ==
LOC: RAD 12:38
PROVIDERS: ATTEND Family Medicine
DX: R05 Cough (principal); R07.89 Other chest pain; J44.9 Chronic obstructive pulmonary disease, unspecified
CPT/HCPCS: 71020

== ENCOUNTER 2016-07-03 07:15 | Day surgery (SDC) | payer MEDICARE, OTHER ==
[~2016-07-03] VITALS: Ht 160 cm; Wt 54.2 kg
[~2016-07-03 07:15] MED LIST changes: -ALBU90AE IH; -GLYC10.7 IH
[2016-07-03] MEDS ORDERED: LIDOCAINE 1% INJ 20 ML (XYLOCAINE) VIAL ONE (07:23)
[2016-07-03] MEDS ORDERED: NS IV 1000 ML 1,000 ML ONE (07:23)
[2016-07-03] MEDS ORDERED: HEParin (CATH LAB) 2,000 ML IV ONE (07:24)
[2016-07-03 07:48] VITALS: BP 140/72
[2016-07-03] MEDS ORDERED: NS IV 1000 ML 1,000 ML IV SCH ×2 (08:00→11:28)
[2016-07-03 08:10] LABS: MEAN PLATELET VOLUME 10.5 FL (7.4-10.4); RED BLOOD COUNT 4.11 10^6/uL (4.35-5.85); RED CELL DISTRIBUTION WIDTH 14.1 % (10.0-14.5); WHITE BLOOD COUNT 9.6 10^3/uL (4.3-11.0)
[2016-07-03 08:19] LABS: PROTHROMBIN TIME PATIENT 12.8 SEC (12.2-14.7)
[2016-07-03 08:32] LABS: ALANINE AMINOTRANSFERASE 19 U/L (0-55); ALBUMIN 3.7 G/DL (3.2-4.5); ANION GAP 10 MMOL/L (5-14); ASPARTATE AMINO TRANSFERASE 14 U/L (5-34); BILIRUBIN,TOTAL 0.4 MG/DL (0.1-1.0); BLOOD UREA NITROGEN 19 MG/DL (7-18); BUN/CREATININE RATIO 21; CALCIUM 9.7 MG/DL (8.5-10.1); CARBON DIOXIDE 33 MMOL/L (21-32); CHLORIDE 96 MMOL/L (98-107); CHOLESTEROL 145 MG/DL (< 200); CREATININE SERUM 0.89 MG/DL (0.60-1.30); DIRECT LDL 75 MG/DL (1-129); GFR ESTIMATED > 60; GLUCOSE 219 MG/DL (70-105); POTASSIUM 4.8 MMOL/L (3.6-5.0); SODIUM 139 MMOL/L (135-145); TOTAL PROTEIN 6.8 G/DL (6.4-8.2); TRIGLYCERIDES 85 MG/DL (<150); VLDL CHOLESTEROL 17 MG/DL (5-40)
[2016-07-03] MEDS ORDERED: GLYC10.7 IH (08:32)
[2016-07-03] MEDS ORDERED: ALBU90AE IH (08:32)
[2016-07-03] MEDS ORDERED: MIDAZOLAM 5 MG/5 ML (VERSED) VIAL ONE (09:39)
[2016-07-03] MEDS ORDERED: diphenhydrAMINE 50 MG/ML INJ (BENADRYL) ONE (09:40)
[2016-07-03] MEDS ORDERED: fentaNYL INJECTION 100 MCG/2 ML AMP ONE (09:40)
[2016-07-03] MEDS ORDERED: HEParin 1000 UNIT/ML (10ML VIAL) FOR BOLUS ONE (09:40)
[2016-07-03] MEDS ORDERED: NITROGLYCERIN DRIP 25 MG/D5W 250 ML IV ONE (09:40)
--- NOTE | 2016-07-03 10:21 | Cardiac Procedure Note-CS/ASA ---
Pre-Procedure Note Pre-Op Procedure Note H&P Reviewed The H&P was reviewed, patient examined and no changes noted. Date H&P Reviewed: Jul 03, 2016 Time H&P Reviewed: 10:21 Conscious Sedation Pre-Proced Time Reviewed: 10:21 ASA Class: 3 Airway Mallampati Classification: ([place] appropriate class) I. II. III, IV Lungs Heart ASA score ASA 1: a normal healthy patient ASA 2: a patient with a mild systemic disease (mid diabetes, controlled hypertension, obesity ASA 3: a patient with a severe systemic disease that limits activity (angina , COPD, prior Myocardial infarction) ASA 4: a patient with an incapacitating disease that is a constant threat to life (CHF, renal failure) ASA 5: a moribund patient not expected to survive 24 hrs. (ruptured aneurysm) ASA 6: a declared brain patient whose organs are being harvested. For emergent operations, add the letter E after the classification Grade 2 Sedation Plan: Analgesia, Amnesia, Plan communicated to team members, Discussed options with patient/fam, Discussed risks with patient/fam Note The patient is an appropriate candidate to undergo the planned procedure, sedation, and anesthesia. The patient immediately re-assessed prior to indication. NORMA ALVARADO MD FACP FAC CCDS Jul 03, 2016 10:21
[2016-07-03] MEDS ORDERED: ASPIRIN 81 MG CHEW (CHILDREN'S ASA) ONE (11:06)
[2016-07-03] MEDS ORDERED: CLOPIDOGREL 75 MG (PLAVIX) TABLET ONE (11:06)
[2016-07-03 11:30] VITALS: BP 137/90
[2016-07-03] MEDS ORDERED: FUROSEMIDE 20 MG (LASIX) TAB PO SCH (11:30)
[2016-07-03] MEDS ORDERED: RT-ALBUTEROL SULF 2.5 MG/3 ML PRE-MIX VIAL INH PRN (11:30)
[2016-07-03] MEDS ORDERED: PATIENT MAY USE OWN MEDS, ALL PO SCH (11:30)
[2016-07-03] MEDS ORDERED: NITROGLYCERIN SUBLINGUAL 0.4 MG TAB (NITROSTAT) SL PRN (11:30)
[2016-07-03] MEDS ORDERED: ALBUTEROL SULFATE IH PRN (11:30)
[2016-07-03] MEDS ORDERED: PROMETHAZINE/ CODEINE SYRUP 5 ML UDC PO PRN (11:30)
[2016-07-03] MEDS ORDERED: ACETAMINOPHEN 325 MG TABLET/CAPLET (TYLENOL) PO PRN (11:45)
[2016-07-03 12:00] VITALS: BP 144/70
[2016-07-03 13:00] VITALS: BP 127/72
[2016-07-03 14:00] VITALS: BP 126/104
[2016-07-03] MEDS ORDERED: RT-ALBUTEROL SULF 2.5 MG/3 ML PRE-MIX VIAL IH PRN (14:30)
[2016-07-03] MEDS ORDERED: ALBUTEROL INHALER HFA (VENTOLIN HFA) 18 GM IH PRN (15:00)
[2016-07-03] MEDS ORDERED: ASPIRIN 81 MG CHEW (CHILDREN'S ASA) PO SCH ×2 (21:00)
[2016-07-03] MEDS ORDERED: NON-FORMULARY MEDICATION 1 EA EA (Cetirizine HCl 10 MG) PO SCH (21:00)
[2016-07-03] MEDS ORDERED: LEVOTHYROXINE 50 MCG (LEVOTHROID) TAB PO SCH (21:00)
[2016-07-03] MEDS ORDERED: meTOprolol TARTRATE 50 MG (LOPRESSOR) TAB PO SCH ×2 (21:00)
[2016-07-03] MEDS ORDERED: LORATADINE (CLARITIN) 10 MG TAB PO SCH (21:00)
[2016-07-03] MEDS ORDERED: APAP 300 MG/CODEINE 30 MG (TYLENOL #3) TAB PO SCH ×2 (21:00)
[2016-07-03] MEDS ORDERED: BEVESPI IH SCH (21:00)
[2016-07-03] MEDS ORDERED: ATORVASTATIN 40 MG (LIPITOR) TABLET PO SCH ×2 (21:00)
[2016-07-03] MEDS ORDERED: ceTIRizine 10 MG (ZyrTEC) TAB NON-FORMULARY PO SCH (21:00)
[2016-07-03] MEDS ORDERED: RX-ACETAMINOPHEN/CODEINE TAB PPK #4 PO SCH (21:00)
[2016-07-04] MEDS ORDERED: PANTOPRAZOLE 40 MG (PROTONIX) TAB PO SCH ×2 (07:00)
[2016-07-04] MEDS ORDERED: MULTIVIT W/MINERALS TAB (THERAGRAN M) PO SCH (07:00)
[2016-07-04] MEDS ORDERED: STRESSTABS PO SCH (07:00)
[2016-07-04] MEDS ORDERED: COENZYME Q10 100 MG PO SCH (09:00)
[2016-07-04] MEDS ORDERED: [UNRECOGNIZED DRUG - OTHER] PO SCH (09:00)
[2016-07-04] MEDS ORDERED: CLOPIDOGREL 75 MG (PLAVIX) TABLET PO SCH ×2 (09:00)
[2016-07-04] MEDS ORDERED: lisINopril 10 MG (PRINIVIL) TAB PO SCH ×2 (09:00)
[2016-07-04] MEDS ORDERED: [UNRECOGNIZED DRUG - OTHER] PO SCH (09:00)
--- NOTE | 2016-07-04 10:59 | PROCEDURE REPORT ---
PROCEDURE PHYSICIAN: NORMA ALVARADO PERIPHERAL ANGIOGRAPHY AND PERIPHERAL INTERVENTION REPORT: DATE OF PROCEDURE: 07/03/2016 Anatoly Young is a 71-year-old lady with multiple risk factors for peripheral arterial disease and is known to have peripheral arterial disease. She has undergone intervention to the left leg approximately 3 months ago and now comes in for evaluation and intervention to the right leg. She does have right leg claudication. She is brought to the cardiac catheterization laboratory in a fasting state. The left groin was prepared and draped in usual sterile fashion. 1% Lidocaine was used for local anesthesia. Modified Seldinger technique was used to advance a 5-[place] sheath in right femoral artery. We used a 5-[place] crossover catheter to engage the right iliac artery and angiography was performed with runoff down to the level of the ankle. There appeared to be considered lesion in the right external iliac artery. We confirmed hemodynamic significance of this by performing pullback across it with a straight catheter. This indicated a pressure gradient of approximately 25 mmHg across the lesion in the right external iliac artery. We then proceeded with percutaneous intervention to this vessel. PERCUTANEOUS INTERVENTION TO THE RIGHT EXTERNAL ILIAC ARTERY: We exchanged the sheath over a Storq wire, which the tip was placed in the right superficial femoral artery. We exchanged the 5-[place] sheath for a 45 mm 6-[place] sheath, the tip of which was placed in the proximal right common iliac artery. We then carried out balloon angioplasty of the lesion in the proximal right external iliac artery with an Hooper 6.0 x 40 mm balloon. This reduced the stenosis to approximately 60%. The balloon was removed and we advanced Omnilink Elite 7.0 x 39 mm stent to the lesion and the stent was deployed at 12 atmospheres. Full stent expansion was achieved. Subsequent angiography revealed 0% residual stenosis at the previous site of approximately 80% stenosis. The angioplasty equipment was removed and Mynx was used to achieve hemostasis in the left femoral artery, which was at the site of sheath insertion. She tolerated the procedure well. SELECTIVE ANGIOGRAPHY OF THE RIGHT COMMON ILIAC ARTERY WITH RUNOFF: Selective angiography of the right common iliac artery with runoff showed approximately 80% stenosis in the proximal right iliac artery across which there was a 25 mm pressure gradient. The common iliac artery itself is heavily calcified but did not indicate significant stenosis. The right internal iliac artery has 80% ostial stenosis, which was not intervened on. The external iliac artery lesion was intervened on. Balloon angioplasty was carried out followed by stenting. Following deployment of Omnilink 7.0 x 39 mm there is 0% residual stenosis in the proximal right external iliac artery. The right common femoral artery does not have significant obstructive disease. The right superficial and deep femoral arteries have diffuse plaques. The right popliteal artery has diffuse plaque and has an intact trifurcation and there is a 3 vessel runoff in the legs. CONCLUSIONS: Successful balloon angioplasty and stenting of the right external iliac artery with reduction of 80% stenosis to 0% residual following deployment of Omnilink 7.0 x 39 mm stent. Job ID: [id number] Dictated Date: 07/03/2016 11:18:44 Cuff Cutter Date: 07/04/2016 10:47:41 / negar CRUZ
--- OUTSIDE RECORDS SUMMARY | 2016-07-17 20:16 | XMS REPORT | Continuity of Care Document ---
Author Author [facility] Organization [facility] Address Unknown Phone Unavailable Allergies Active Description Code Type Severity Reaction Onset Reported/Identified Relationship to Patient Clinical Status Yes penicillin G [id number] Drug Allergy Unknown N/A 02/16/2013 Yes Penicillins [id number] Drug Allergy Severe ANAPHYLAXIS 02/24/2013 Yes hydrochlorothiazide [id number] Drug Allergy Unknown N/A 02/24/2013 Yes levofloxacin [id number] Drug Allergy Unknown N/A 02/24/2013 Medications Problems Date Dx Coded Attending Type Code Diagnosis Diagnosed By 02/24/2013 JENNY CRAVEN [facility], NORMA [facility] CCDS Ot 305.1 TOBACCO USE DISORDER 02/24/2013 JENNY WHITAKER, [facility] CCDS Ot 401.9 HYPERTENSION NOS 02/24/2013 JENNY WHITAKER, [facility] CCDS Ot 414.01 CORONARY ATHEROSCLEROSIS OF [place] CORON 02/24/2013 JENNY CRAVEN FACC, NORMA [facility] CCDS Ot 414.4 CORONARY ATHEROSCLEROSIS DUE TO [place] 02/24/2013 JENNY WHITAKER, [facility] CCDS Ot 496 CHR AIRWAY OBSTRUCT NEC 02/24/2013 JENNY WHITAKER, [facility] CCDS Ot V58.69 OTH MED,LT,CURRENT USE 04/14/2013 WEST MCCAULEY DO Ot 414.00 CORON ATHEROSCLER NOS TYPE VESSEL, NATIV 04/14/2013 WEST MCCAULEY DO Ot 428.0 CONGESTIVE HEART FAILURE NOS 04/14/2013 WEST MCCAULEY DO Ot 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 04/14/2013 WEST MCCAULEY DO Ot 491.21 OBSTR CHRONIC BRONCHITIS, W (ACUTE) EXAC 04/14/2013 WEST MCCAULEY DO Ot 493.20 CHRONIC OBSTRUCTIVE ASTHMA, NOS 04/14/2013 WEST MCCAULEY DO Ot 518.0 PULMONARY COLLAPSE 04/14/2013 WEST MCCAULEY DO Ot 518.84 ACUTE AND CHRONIC RESPIRATORY FAILURE 04/14/2013 WEST MCCAULEY DO Alberto Ot V15.82 HISTORY OF TOBACCO USE 04/14/2013 PARISA QUINTANILLA WEST Dominguez Ot V45.76 ACQRD ABSENCE OF LUNG 04/14/2013 PARISA QUINTANILLA WEST Dominguez Ot V45.81 AORTOCORONARY BYPASS 04/14/2013 PARISA QUINTANILLA WEST Dominguez Ot V45.89 POSTSURGICAL STATES NEC 04/22/2013 PARISA QUINTANILLAWEST Ot 272.4 HYPERLIPIDEMIA NEC/NOS 04/22/2013 PARISA QUINTANILLAWEST Ot 401.9 HYPERTENSION NOS 04/22/2013 PARISA QUINTANILLA WEST Dominguez Ot 414.00 CORON ATHEROSCLER NOS TYPE VESSEL, NATIV 04/22/2013 PARISA QUINTANILLAWEST Ot 427.31 ATRIAL FIBRILLATION 04/22/2013 PARISA QUINTANILLAWEST Ot 428.0 CONGESTIVE HEART FAILURE NOS 04/22/2013 PARISA QUINTANILLA WEST Dominguez Ot 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 04/22/2013 PARISA QUINTANILLAWEST Ot 491.21 OBSTR CHRONIC BRONCHITIS, W (ACUTE) EXAC 04/22/2013 PARISA QUINTANILLAWEST Ot 518.0 PULMONARY COLLAPSE 04/22/2013 PARISA QUINTANILLA WEST Dominguez Ot 518.84 ACUTE AND CHRONIC RESPIRATORY FAILURE 04/22/2013 PARISA QUINTANILLAWEST Ot 790.29 OTHER ABNORMAL GLUCOSE 04/22/2013 PARISA QUINTANILLAWEST Ot V15.82 HISTORY OF TOBACCO USE 04/22/2013 PARISA QUINTANILLAWEST Ot V45.81 AORTOCORONARY BYPASS 11/03/2013 JENNY CRAVEN FACC, NORMA FACP CCDS Ot V45.81 AORTOCORONARY BYPASS 11/03/2013 JENNY CRAVEN FACC, NORMA FACP CCDS Ot V57.89 REHABILITATION PROC NEC 11/03/2013 JENNY CRAVEN FACC, ALI FACP CCDS Ot V58.73 AFTERCARE POST SURGERY CIRULATORY SYSTEM 11/09/2013 JENNY CRAVEN FACC, NORMA FACP CCDS Ot V45.81 AORTOCORONARY BYPASS 11/09/2013 JENNY CRAVEN FACC, ALI FACP CCDS Ot V57.89 REHABILITATION PROC NEC 11/09/2013 JENNY CRAVEN FACC, ALI FACP CCDS Ot V58.73 AFTERCARE POST SURGERY CIRULATORY SYSTEM 03/16/2014 BAIMA, LEONA L CHIEF METEOROLOGIST Ot 272.4 03/16/2014 BAIMA, LEONA L CHIEF METEOROLOGIST Ot 401.9 03/16/2014 BAIMA, LEONA L CHIEF METEOROLOGIST Ot 414.00 03/16/2014 BAIMA, LEONA L CHIEF METEOROLOGIST Ot 496 03/16/2014 BAIMA, LEONA L CHIEF METEOROLOGIST Ot V45.81 03/31/2014 BAIMA, LEONA L CHIEF METEOROLOGIST Ot 272.4 HYPERLIPIDEMIA NEC/NOS 03/31/2014 BAIMA, LEONA L CHIEF METEOROLOGIST Ot 401.9 HYPERTENSION NOS 03/31/2014 BAIMA, LEONA L CHIEF METEOROLOGIST Ot 414.00 CORON ATHEROSCLER NOS TYPE VESSEL, NATIV 03/31/2014 BAIMA, LEONA L CHIEF METEOROLOGIST Ot 496 CHR AIRWAY OBSTRUCT NEC 03/31/2014 BAIMA, LEONA L CHIEF METEOROLOGIST Ot V45.81 AORTOCORONARY BYPASS 04/20/2014 BAIMA, LEONA L CHIEF METEOROLOGIST Ot 272.4 04/20/2014 BAIMA, LEONA L CHIEF METEOROLOGIST Ot 401.9 04/20/2014 BAIMA, LEONA L CHIEF METEOROLOGIST Ot 414.00 04/20/2014 BAIMA, LEONA L CHIEF METEOROLOGIST Ot 496 04/20/2014 BAIMA, LEONA L CHIEF METEOROLOGIST Ot V45.81 04/21/2014 BAIMA, LEONA L CHIEF METEOROLOGIST Ot 272.4 04/21/2014 BAIMA, LEONA L CHIEF METEOROLOGIST Ot 401.9 04/21/2014 BAIMA, LEONA L CHIEF METEOROLOGIST Ot 414.00 04/21/2014 BAIMA, LEONA L CHIEF METEOROLOGIST Ot 496 04/21/2014 BAIMA, LEONA L CHIEF METEOROLOGIST Ot V45.81 06/02/2014 BAIMA, LEONA L CHIEF METEOROLOGIST Ot 272.4 06/02/2014 BAIMA, LEONA L CHIEF METEOROLOGIST Ot 401.9 06/02/2014 BAIMA, LEONA L CHIEF METEOROLOGIST Ot 414.00 06/02/2014 BAIMA, LEONA L CHIEF METEOROLOGIST Ot 496 06/02/2014 BAIMA, LEONA L CHIEF METEOROLOGIST Ot V45.81 07/19/2014 BAIMA, LEONA L CHIEF METEOROLOGIST Ot 272.4 HYPERLIPIDEMIA NEC/NOS 07/19/2014 BAIMA, LEONA L CHIEF METEOROLOGIST Ot 401.9 HYPERTENSION NOS 07/19/2014 BAIMA, LEONA L CHIEF METEOROLOGIST Ot 414.00 CORON ATHEROSCLER NOS TYPE VESSEL, NATIV 07/19/2014 CHASTITYMA, LEONA L CHIEF METEOROLOGIST Ot 496 CHR AIRWAY OBSTRUCT NEC 07/19/2014 SANKET LEONA L CHIEF METEOROLOGIST Ot V45.81 AORTOCORONARY BYPASS 10/19/2014 ZHEN BECKER VAULT MAKER Ot 836.2 TEAR MENISCUS NEC-CURREN 10/19/2014 ZHEN BECKER VAULT MAKER Ot 959.7 LOWER LEG INJURY NOS 10/19/2014 ZHEN BECKER VAULT MAKER Ot E000.8 OTHER EXTERNAL CAUSE STATUS 10/19/2014 ZHEN BECKER VAULT MAKER Ot E849.0 ACCIDENT IN HOME 10/19/2014 ZHEN BECKER VAULT MAKER Ot E885.9 FALL FROM SLIPPING, TRIPPING, OR STUMBLI 01/27/2015 BAIMILADY, LEONA L CHIEF METEOROLOGIST Ot 272.4 01/27/2015 BAIMA, LEONA L CHIEF METEOROLOGIST Ot 401.9 01/27/2015 BAIMA, LEONA L CHIEF METEOROLOGIST Ot 414.00 01/27/2015 BAIMA, LEONA L CHIEF METEOROLOGIST Ot 433.10 01/27/2015 BAIMA, LEONA L CHIEF METEOROLOGIST Ot 496 01/27/2015 BAIMA, LEONA L CHIEF METEOROLOGIST Ot V45.81 02/14/2015 BAIMA, LEONA L CHIEF METEOROLOGIST Ot 272.4 02/14/2015 BAIMA, LEONA L CHIEF METEOROLOGIST Ot 401.9 02/14/2015 BAIMA, LEONA L CHIEF METEOROLOGIST Ot 414.00 02/14/2015 BAIMA, LEONA L CHIEF METEOROLOGIST Ot 433.10 02/14/2015 BAIMA, LEONA L CHIEF METEOROLOGIST Ot 496 02/14/2015 BAIMA, LEONA L CHIEF METEOROLOGIST Ot V45.81 04/07/2015 WEST MCCAULEY DO Ot J44.9 04/07/2015 SHIELADER WEST QUINTANILLA Ot R05 04/07/2015 WE[place] MCC[place] DO Ot R06.2 04/07/2015 WEST MCCAULEY DO Ot Z99.81 04/26/2015 WEST MCCAULEY DO Ot J44.9 04/26/2015 WEST MCCAULEY DO Ot R05 04/26/2015 GELNILSDER WEST QUINTANILLA Ot R06.2 04/26/2015 WEST MCCAULEY DO Ot Z99.81 06/28/2015 GELLENDER DO, WEST Dominguez Ot J44.9 06/28/2015 GELLENDER DO, WEST Dominguez Ot R05 07/13/2015 JENNY CRAVEN FAC, ALI FACP CCDS Ot E03.9 HYPOTHYROIDISM, UNSPECIFIED 07/13/2015 JENNY CRAVEN FACC, ALI FACP CCDS Ot F17.290 NICOTINE DEPENDENCE, OTHER TOBACCO PRODU 07/13/2015 JENNY CRAVEN FACC, ALI FACP CCDS Ot I10 ESSENTIAL (PRIMARY) HYPERTENSION 07/13/2015 JENNY CRAVNE FACC, ALI FACP CCDS Ot I25.10 ATHSCL HEART DISEASE OF [place] CORONARY 07/13/2015 JENNY CRAVEN FACC, ALI FACP CCDS Ot J44.9 CHRONIC OBSTRUCTIVE PULMONARY DISEASE, U 07/13/2015 JENNY CRAVEN FACC, ALI FACP CCDS Ot Z79.899 OTHER BRUSH FINISHER (CURRENT) DRUG THERAPY 07/13/2015 JENNY CRAVEN FAC, ALI FACP CCDS Ot Z95.1 PRESENCE OF AORTOCORONARY BYPASS GRAFT 07/19/2015 GELLENDER DO, WEST Dominguez Ot J44.9 07/19/2015 GELLENDER DO, WEST Dominguez Ot R05 07/19/2015 GELLENDER DO, WEST Dominguez Ot 496 07/19/2015 GELLENDER DO, WEST Dominguez Ot 786.50 07/19/2015 GELLENDER DO, WEST Dominguez Ot 496 07/19/2015 GELLENDER DO, WEST Dominguez Ot 786.05 07/19/2015 GELLENDER DO, WEST Dominguez Ot 786.2 07/19/2015 GELLENDER DO, WEST A Ot 482.42 07/19/2015 GELLENDER DO, WEST A Ot 490 07/19/2015 GELLENDER DO, WEST A Ot 496 07/19/2015 GELLENDER DO, WEST A Ot 491.20 07/19/2015 GELLENDER DO, WEST A Ot 492.0 07/19/2015 GELLENDER DO, WEST A Ot 724.5 07/19/2015 GELLENDER DO, WEST A Ot 786.05 07/19/2015 GELLENDER DO, WEST A Ot 786.2 07/19/2015 GELLENDER DO, WEST A Ot 786.59 07/19/2015 GELLENDER DO, WEST A Ot 789.01 07/19/2015 GELLENDER DO, WEST Dominguez Ot 789.01 07/19/2015 GELLENDER DO, WEST Dominguez Ot 786.05 07/19/2015 GELLENDER DO, WEST Dominguez Ot 786.2 07/19/2015 Ot V45.81 07/19/2015 Ot V57.89 07/19/2015 Ot V58.73 07/19/2015 BAIMA, LEONA L CHIEF METEOROLOGIST Ot 272.4 07/19/2015 BAIMA, LEONA L CHIEF METEOROLOGIST Ot 401.9 07/19/2015 BAIMA, LEONA L CHIEF METEOROLOGIST Ot 414.00 07/19/2015 BAIMA, LEONA L CHIEF METEOROLOGIST Ot 496 07/19/2015 BAIMA, LEONA L CHIEF METEOROLOGIST Ot V45.81 07/19/2015 BAIMA, LEONA L CHIEF METEOROLOGIST Ot 272.4 07/19/2015 BAIMA, LEONA L CHIEF METEOROLOGIST Ot 401.9 07/19/2015 BAIMA, LEONA L CHIEF METEOROLOGIST Ot 414.00 07/19/2015 BAIMA, LEONA L CHIEF METEOROLOGIST Ot 433.10 07/19/2015 BAIMA, LEONA L CHIEF METEOROLOGIST Ot 496 07/19/2015 BAIMA, LEONA L CHIEF METEOROLOGIST Ot V45.81 07/19/2015 GELLENDER DO, WEST Dominguez Ot J44.9 07/19/2015 GELLENDER DO, WEST Dominguez Ot R05 07/19/2015 GELLENDER DO, WEST Dominguez Ot R06.2 07/19/2015 GELLENDER DO, WEST Dominguez Ot Z99.81 07/19/2015 GELLENDER DO, WEST Dominguez Ot J44.9 07/19/2015 GELLENDER DO, WEST Dominguez Ot R05 08/03/2015 GELLENDER DO, WEST Dominguez Ot J44.9 CHRONIC OBSTRUCTIVE PULMONARY DISEASE , U 08/03/2015 GELLENDER DO, WEST Alberto Ot R05 COUGH 02/21/2016 GELLENDER DO, WEST Dominguez Ot 496 CHR AIRWAY OBSTRUCT NEC 02/21/2016 GELLENDER DO, WEST Dominguez Ot 786.50 CHEST PAIN NOS 02/21/2016 GELLENDER DO, WEST Alberto Ot 496 CHR AIRWAY OBSTRUCT NEC 02/21/2016 GELLENDER DO, WEST Dominguez Ot 786.05 SHORTNESS OF BREATH 02/21/2016 GELLENDER DO, WEST Alberto Ot 786.2 COUGH 02/21/2016 WEST MCCAULEY DO Ot 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 02/21/2016 WEST MCCAULEY DO Ot 490 BRONCHITIS NOS 02/21/2016 PARISA QUINTANILLA, WEST Dominguez Ot 496 CHR AIRWAY OBSTRUCT NEC 02/21/2016 WEST MCCAULEY DO Ot 491.20 OBSTR CHRONIC BRONCHITIS, W/O EXACERBATI 02/21/2016 WEST MCCAULEY DO Ot 492.0 EMPHYSEMATOUS BLEB 02/21/2016 SHIELADER DO, WEST Dominguez Ot 724.5 BACKACHE NOS 02/21/2016 PARISA QUINTANILLA, WEST Dominguez Ot 786.05 SHORTNESS OF BREATH 02/21/2016 PARISA QUINTANILLA, WEST Dominguez Ot 786.2 COUGH 02/21/2016 PARISA QUINTANILLA, WEST Dominguez Ot 786.59 CHEST PAIN NEC 02/21/2016 PARISA QUINTANILLA, WEST Dominguez Ot 789.01 ABDOMINAL PAIN, RIGHT UPPER QUADRANT 02/21/2016 WEST MCCAULEY DO Ot 789.01 ABDOMINAL PAIN, RIGHT UPPER QUADRANT 02/21/2016 PARISA QUINTANILLA, WEST Dominguez Ot 786.05 SHORTNESS OF BREATH 02/21/2016 PARISA QUINTANILLA, WEST Dominguez Ot 786.2 COUGH 02/21/2016 Ot V45.81 AORTOCORONARY BYPASS 02/21/2016 Ot V57.89 REHABILITATION PROC NEC 02/21/2016 Ot V58.73 AFTERCARE POST SURGERY CIRULATORY SYSTEM 02/21/2016 BAIMA, LEONA L CHIEF METEOROLOGIST Ot 272.4 HYPERLIPIDEMIA NEC/NOS 02/21/2016 BAIMA, LEONA L CHIEF METEOROLOGIST Ot 401.9 HYPERTENSION NOS 02/21/2016 BAIMA, LEONA L CHIEF METEOROLOGIST Ot 414.00 CORON ATHEROSCLER NOS TYPE VESSEL, NATIV 02/21/2016 BAIMA, LEONA L CHIEF METEOROLOGIST Ot 496 CHR AIRWAY OBSTRUCT NEC 02/21/2016 BAIMA, LEONA L CHIEF METEOROLOGIST Ot V45.81 AORTOCORONARY BYPASS 02/21/2016 BAIMA, LEONA L CHIEF METEOROLOGIST Ot 272.4 HYPERLIPIDEMIA NEC/NOS 02/21/2016 BAIMA, LEONA L CHIEF METEOROLOGIST Ot 401.9 HYPERTENSION NOS 02/21/2016 BAIMA, LEONA L CHIEF METEOROLOGIST Ot 414.00 CORON ATHEROSCLER NOS TYPE VESSEL, NATIV 02/21/2016 BAIMA, LEONA L CHIEF METEOROLOGIST Ot 433.10 CAROTID ARTERY OCCLUSION W O CEREBRAL IN 02/21/2016 LEONA COLES CHIEF METEOROLOGIST Ot 496 CHR AIRWAY OBSTRUCT NEC 02/21/2016 CHASTITYLEONA HENNING CHIEF METEOROLOGIST Ot V45.81 AORTOCORONARY BYPASS 02/21/2016 WEST MCCAULEY DO Ot J44.9 CHRONIC OBSTRUCTIVE PULMONARY DISEASE , U 02/21/2016 WEST MCCAULEY DO Ot R05 COUGH 02/21/2016 PARISA QUINTANILLA WEST Dominguez Ot R06.2 WHEEZING 02/21/2016 PARISA QUINTANILLA WEST Alberto Ot Z99.81 DEPENDENCE ON SUPPLEMENTAL OXYGEN 02/21/2016 WEST MCCAULEY DO Alberto Ot J44.9 CHRONIC OBSTRUCTIVE PULMONARY DISEASE , U 02/21/2016 WEST MCCAULEY DO Ot R05 COUGH 02/22/2016 JENNY CRAVEN FACC, ALI FACP CCDS Ot I25.10 ATHSCL HEART DISEASE OF [place] CORONARY 02/22/2016 JENNY CRAVEN FACC, ALI FACP CCDS Ot I70.213 ATHSCL [place] ARTERIES OF EXTRM W INTRMT 02/23/2016 JENNY CRAVEN FACC, ALI FACP CCDS Ot E78.4 OTHER HYPERLIPIDEMIA 02/23/2016 JENNY CRAVEN FACC, ALI FACP CCDS Ot I10 ESSENTIAL (PRIMARY) HYPERTENSION 02/23/2016 JENNY CRAVEN FACC, ALI FACP CCDS Ot I25.10 ATHSCL HEART DISEASE OF [place] CORONARY 02/23/2016 JENNY CRAVEN FACC, ALI FACP CCDS Ot 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 02/23/2016 JENNY CRAVEN FACC, ALI FACP CCDS Ot I70.213 ATHSCL [place] ARTERIES OF EXTRM W INTRMT 02/23/2016 JENNY CRAVEN FACC, ALI FACP CCDS Ot J43.8 OTHER EMPHYSEMA 03/14/2016 JENNY CRAVEN FACC, ALI FACP CCDS Ot I70.213 ATHSCL [place] ARTERIES OF EXTRM W INTRMT 03/14/2016 JENNY CRAVEN FACC, ALI FACP CCDS Ot E78.4 OTHER HYPERLIPIDEMIA 03/14/2016 JENNY CRAVEN FACC, ALI FACP CCDS Ot I10 ESSENTIAL (PRIMARY) HYPERTENSION 03/14/2016 JENNY CRAVEN FACC, ALI FACP CCDS Ot I25.10 ATHSCL HEART DISEASE OF [place] CORONARY 03/14/2016 JENNY CRAVEN FACC, ALI FACP CCDS Ot 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 03/14/2016 JENNY CRAVEN FACC, ALI FACP CCDS Ot I70.213 ATHSCL [place] ARTERIES OF EXTRM W INTRMT 03/14/2016 JENNY CRAVEN FACC, ALI FACP CCDS Ot J43.8 OTHER EMPHYSEMA 03/21/2016 JENNY CRAVEN FACC, ALI FACP CCDS Ot E03.9 HYPOTHYROIDISM, UNSPECIFIED 03/21/2016 JENNY CRAVEN FACC, ALI FACP CCDS Ot E78.5 HYPERLIPIDEMIA, UNSPECIFIED 03/21/2016 JENNY CRAVEN FACC, ALI FACP CCDS Ot I10 ESSENTIAL (PRIMARY) HYPERTENSION 03/21/2016 JENNY CRAVEN FACC, NORMA FACP CCDS Ot I25.10 ATHSCL HEART DISEASE OF [place] CORONARY 03/21/2016 JENNY CRAVEN FACC, ALI FACP CCDS Ot I70.0 ATHEROSCLEROSIS OF [place] 03/21/2016 NORMA ALVARADO MD, FACC FACP CCDS Ot I70.1 ATHEROSCLEROSIS OF RENAL ARTERY 03/21/2016 JENNY CRAVEN FACC, ALI FACP CCDS Ot I70.213 ATHSCL [place] ARTERIES OF EXTRM W INTRMT 03/21/2016 JENNY CRAVEN FACC, NORMA FACP CCDS Ot J44.1 CHRONIC OBSTRUCTIVE PULMONARY DISEASE W 03/21/2016 NORMA ALVARADO MD, FACC FACP CCDS Ot R73.9 HYPERGLYCEMIA, UNSPECIFIED 03/21/2016 JENNY CRAVEN FACC ALI FACP CCDS Ot Z79.899 OTHER BRUSH FINISHER (CURRENT) DRUG THERAPY 03/21/2016 JENNY CRAVEN FACC ALI FACP CCDS Ot Z87.891 PERSONAL HISTORY OF NICOTINE DEPENDENCE 03/21/2016 JENNY CRAVEN FACC ALI FACP CCDS Ot Z95.1 PRESENCE OF AORTOCORONARY BYPASS GRAFT 03/21/2016 NORMA ALVARADO MD, FACC FACP CCDS Ot Z99.81 DEPENDENCE ON SUPPLEMENTAL OXYGEN 03/26/2016 NORMA ALVARADO MD, FACC FACP CCDS Ot M79.605 PAIN IN LEFT LEG 03/27/2016 JENNY CRAVEN FACC ALI FACP CCDS Ot M79.605 PAIN IN LEFT LEG 03/28/2016 JENNY CRAVEN FACC ALI FACP CCDS Ot M79.605 PAIN IN LEFT LEG 03/29/2016 JENNY CRAVEN FACC, ALI FACP CCDS Ot I70.213 ATHSCL [place] ARTERIES OF EXTRM W INTRMT 03/29/2016 JENNY CRAVEN FACC, ALI FACP CCDS Ot E78.4 OTHER HYPERLIPIDEMIA 03/29/2016 JENNY CRAVEN FACC, ALI FACP CCDS Ot I10 ESSENTIAL (PRIMARY) HYPERTENSION 03/29/2016 JENNY CRAVEN FACC, ALI FACP CCDS Ot I25.10 ATHSCL HEART DISEASE OF [place] CORONARY 03/29/2016 JENNY CRAVEN FACC, ALI FACP CCDS Ot 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 03/29/2016 JENNY CRAVEN FACC, ALI FACP CCDS Ot I70.213 ATHSCL [place] ARTERIES OF EXTRM W INTRMT 03/29/2016 JENNY CRAVEN FACC, ALI FACP CCDS Ot J43.8 OTHER EMPHYSEMA 04/18/2016 JENNY CRAVEN FACC, ALI FACP CCDS Ot E03.9 HYPOTHYROIDISM, UNSPECIFIED 04/18/2016 JENNY CRAVEN FACC, ALI FACP CCDS Ot E78.5 HYPERLIPIDEMIA, UNSPECIFIED 04/18/2016 JENNY CRAVEN FACC, ALI FACP CCDS Ot I10 ESSENTIAL (PRIMARY) HYPERTENSION 04/18/2016 JENNY CRAVEN FACC, ALI FACP CCDS Ot I25.10 ATHSCL HEART DISEASE OF [place] CORONARY 04/18/2016 JENNY CRAVEN FACC, ALI FACP CCDS Ot I70.0 ATHEROSCLEROSIS OF [place] 04/18/2016 JENNY CRAVEN FACC, ALI FACP CCDS Ot I70.1 ATHEROSCLEROSIS OF RENAL ARTERY 04/18/2016 JENNY CRAVEN FACC, ALI FACP CCDS Ot I70.213 ATHSCL [place] ARTERIES OF EXTRM W INTRMT 04/18/2016 JENNY CRAVEN FACC, ALI FACP CCDS Ot J44.1 CHRONIC OBSTRUCTIVE PULMONARY DISEASE W 04/18/2016 JENNY CRAVEN FACC, ALI FACP CCDS Ot R73.9 HYPERGLYCEMIA, UNSPECIFIED 04/18/2016 JENNY CRAVEN FACC, ALI FACP CCDS Ot Z79.899 OTHER CUSTODIAL (CURRENT) DRUG THERAPY 04/18/2016 JENNY CRAVEN FACC, ALI FACP CCDS Ot Z87.891 PERSONAL HISTORY OF NICOTINE DEPENDENCE 04/18/2016 JENNY CRAVEN FACC, ALI FACP CCDS Ot Z95.1 PRESENCE OF AORTOCORONARY BYPASS GRAFT 04/18/2016 JENNY CRAVEN [facility], ALI FACP CCDS Ot Z99.81 DEPENDENCE ON SUPPLEMENTAL OXYGEN 04/19/2016 GELLENDER DO, WEST Dominguez Ot E78.5 HYPERLIPIDEMIA, UNSPECIFIED 04/19/2016 GELLENDER DO, WEST Dominguez Ot I10 ESSENTIAL (PRIMARY) HYPERTENSION 04/19/2016 GELLENDER DO, WEST Dominguez Ot I25.10 ATHSCL HEART DISEASE OF [place] CORONARY 04/19/2016 GELLENDER DO, WEST Dominguez Ot J44.1 CHRONIC OBSTRUCTIVE PULMONARY DISEASE W 04/19/2016 GELLENDER DO, WEST Dominguez Ot R07.9 CHEST PAIN, UNSPECIFIED 04/19/2016 GELLENDER DO, WEST Dominguez Ot Z87.891 PERSONAL HISTORY OF NICOTINE DEPENDENCE 04/19/2016 GELLENDER DO, WEST Dominguez Ot Z95.1 PRESENCE OF AORTOCORONARY BYPASS GRAFT 04/19/2016 GELLENDER DO, WEST Dominguez Ot Z95.820 PERIPHERAL VASCULAR ANGIOPLASTY STATUS W 04/19/2016 GELLENDER DO, WEST Dominguez Ot Z99.81 DEPENDENCE ON SUPPLEMENTAL OXYGEN 04/19/2016 GELLENDER DO, WEST Dominguez Ot E78.5 HYPERLIPIDEMIA, UNSPECIFIED 04/19/2016 GELLENDER DO, WEST Dominguez Ot I10 ESSENTIAL (PRIMARY) HYPERTENSION 04/19/2016 GELLENDER DO, WEST Dominguez Ot I25.10 ATHSCL HEART DISEASE OF [place] CORONARY 04/19/2016 GELLENDER DO, WEST Dominguez Ot J44.1 CHRONIC OBSTRUCTIVE PULMONARY DISEASE W 04/19/2016 GELLENDER DO, WEST Dominguez Ot R07.9 CHEST PAIN, UNSPECIFIED 04/19/2016 GELLENDER DO, WEST Dominguez Ot Z87.891 PERSONAL HISTORY OF NICOTINE DEPENDENCE 04/19/2016 GELLENDER DO, WEST Dominguez Ot Z95.1 PRESENCE OF AORTOCORONARY BYPASS GRAFT 04/19/2016 GELLENDER DO, WEST Dominguez Ot Z95.820 PERIPHERAL VASCULAR ANGIOPLASTY STATUS W 04/19/2016 GELLENDER DO, WEST Dominguez Ot Z99.81 DEPENDENCE ON SUPPLEMENTAL OXYGEN 04/25/2016 JENNY CRAVEN FACC, NORMA FACP CCDS Ot M79.605 PAIN IN LEFT LEG 05/04/2016 JENNY CRAVEN FACC, ALI FACP CCDS Ot M79.605 PAIN IN LEFT LEG 07/03/2016 GELLENDER DO, WEST Dominguez Ot J44.9 CHRONIC OBSTRUCTIVE PULMONARY DISEASE , U 07/03/2016 GELLENDER DO, WEST Dominguez Ot R05 COUGH 07/03/2016 GELLENDER DO, WEST Dominguez Ot R07.89 OTHER CHEST PAIN 07/03/2016 GELLENDER DO, WEST Dominguez Ot J44.9 CHRONIC OBSTRUCTIVE PULMONARY DISEASE , U 07/03/2016 GELLENDER DO, WEST Dominguez Ot R05 COUGH 07/03/2016 GELLENDER DO, WEST Dominguez Ot R07.89 OTHER CHEST PAIN 07/03/2016 LEONA COLES L CHIEF METEOROLOGIST Ot E03.9 HYPOTHYROIDISM, UNSPECIFIED 07/03/2016 DANYELL COLESHER L CHIEF METEOROLOGIST Ot I10 ESSENTIAL (PRIMARY) HYPERTENSION 07/03/2016 SANKET LEONA L CHIEF METEOROLOGIST Ot I25.10 ATHSCL HEART DISEASE OF [place] CORONARY 07/03/2016 DANYELL COLESHER L CHIEF METEOROLOGIST Ot I27.2 OTHER SECONDARY PULMONARY HYPERTENSION 07/03/2016 DANYELL COLESHER L CHIEF METEOROLOGIST Ot I70.1 ATHEROSCLEROSIS OF RENAL ARTERY 07/03/2016 DANYELL COLESHER L CHIEF METEOROLOGIST Ot I70.213 ATHSCL [place] ARTERIES OF EXTRM W INTRMT 07/03/2016 LEONA COLES L CHIEF METEOROLOGIST Ot J44.9 CHRONIC OBSTRUCTIVE PULMONARY DISEASE, U 07/03/2016 LEONA COLES L CHIEF METEOROLOGIST Ot Z79.899 OTHER CUSTODIAL (CURRENT) DRUG THERAPY 07/03/2016 DANYELL COLESHER L CHIEF METEOROLOGIST Ot Z87.891 PERSONAL HISTORY OF NICOTINE DEPENDENCE 07/03/2016 LEONA COLES L CHIEF METEOROLOGIST Ot Z95.1 PRESENCE OF AORTOCORONARY BYPASS GRAFT 07/03/2016 LEONA COLES L CHIEF METEOROLOGIST Ot Z95.820 PERIPHERAL VASCULAR ANGIOPLASTY STATUS W 07/06/2016 LEONA COLES L CHIEF METEOROLOGIST Ot E03.9 HYPOTHYROIDISM, UNSPECIFIED 07/06/2016 DANYELL COLESHER L CHIEF METEOROLOGIST Ot I10 ESSENTIAL (PRIMARY) HYPERTENSION 07/06/2016 DANYELL COLESHER L CHIEF METEOROLOGIST Ot I25.10 ATHSCL HEART DISEASE OF [place] CORONARY 07/06/2016 DANYELL COLESHER L CHIEF METEOROLOGIST Ot I27.2 OTHER SECONDARY PULMONARY HYPERTENSION 07/06/2016 LEONA COLES L CHIEF METEOROLOGIST Ot I70.1 ATHEROSCLEROSIS OF RENAL ARTERY 07/06/2016 LEONA COLES CHIEF METEOROLOGIST Ot I70.213 ATHSCL [place] ARTERIES OF EXTRM W INTRMT 07/06/2016 LEONA COLES CHIEF METEOROLOGIST Ot J44.9 CHRONIC OBSTRUCTIVE PULMONARY DISEASE, U 07/06/2016 LEONA COLES CHIEF METEOROLOGIST Ot Z79.899 OTHER CUSTODIAL (CURRENT) DRUG THERAPY 07/06/2016 SANKET LEONA L CHIEF METEOROLOGIST Ot Z87.891 PERSONAL HISTORY OF NICOTINE DEPENDENCE 07/06/2016 LOENA COLES CHIEF METEOROLOGIST Ot Z95.1 PRESENCE OF AORTOCORONARY BYPASS GRAFT 07/06/2016 LEONA COLES CHIEF METEOROLOGIST Ot Z95.820 PERIPHERAL VASCULAR ANGIOPLASTY STATUS W 07/06/2016 GELLENDER DO, WEST Dominguez Ot 496 CHR AIRWAY OBSTRUCT NEC 07/06/2016 GELLENDER DO, WEST [place] Ot 786.50 CHEST PAIN NOS 07/06/2016 GELLENDER DO, WEST [place] Ot 496 CHR AIRWAY OBSTRUCT NEC 07/06/2016 GELLENDER DO, WEST [place] Ot 786.05 SHORTNESS OF BREATH 07/06/2016 GELLENDER DO, WEST [place] Ot 786.2 COUGH 07/06/2016 GELLENDER DO, [place]ST [place] Ot 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 07/06/2016 GELLENDER DO, WEST [place] Ot 490 BRONCHITIS NOS 07/06/2016 GELLENDER DO, WEST [place] Ot 496 CHR AIRWAY OBSTRUCT NEC 07/06/2016 GELLENDER DO, [place]ST [place] Ot 491.20 OBSTR CHRONIC BRONCHITIS, W/O EXACERBATI 07/06/2016 GELLENDER DOWEST Ot 492.0 EMPHYSEMATOUS BLEB 07/06/2016 GELLENDER DOWEST Ot 724.5 BACKACHE NOS 07/06/2016 GELLENDER DOWEST Ot 786.05 SHORTNESS OF BREATH 07/06/2016 GELLENDER DO, [place] Ot 786.2 COUGH 07/06/2016 GELLENDER DO, [place]ST [place] Ot 786.59 CHEST PAIN NEC 07/06/2016 GELLENDER DO, [place]ST [place] Ot 789.01 ABDOMINAL PAIN, RIGHT UPPER QUADRANT 07/06/2016 GELLENDER DO, [place]ST [place] Ot 789.01 ABDOMINAL PAIN, RIGHT UPPER QUADRANT 07/06/2016 GELLENDER DOWEST Ot 786.05 SHORTNESS OF BREATH 07/06/2016 GELLENDER DO, [place]ST [place] Ot 786.2 COUGH 07/06/2016 Ot V45.81 AORTOCORONARY BYPASS 07/06/2016 Ot V57.89 REHABILITATION PROC NEC 07/06/2016 Ot V58.73 AFTERCARE POST SURGERY CIRULATORY SYSTEM 07/06/2016 BAIMA, LEONA L CHIEF METEOROLOGIST Ot 272.4 HYPERLIPIDEMIA NEC/NOS 07/06/2016 BAIMA, LEONA L CHIEF METEOROLOGIST Ot 401.9 HYPERTENSION NOS 07/06/2016 BAIMA, LEONA L CHIEF METEOROLOGIST Ot 414.00 CORON ATHEROSCLER NOS TYPE VESSEL, NATIV 07/06/2016 BAIMA, LEONA L CHIEF METEOROLOGIST Ot 496 CHR AIRWAY OBSTRUCT NEC 07/06/2016 BAIMA, LEONA L CHIEF METEOROLOGIST Ot V45.81 AORTOCORONARY BYPASS 07/06/2016 BAIMA, LEONA L CHIEF METEOROLOGIST Ot 272.4 HYPERLIPIDEMIA NEC/NOS 07/06/2016 BAIMA, LEONA L CHIEF METEOROLOGIST Ot 401.9 HYPERTENSION NOS 07/06/2016 BAIMA, LEONA L CHIEF METEOROLOGIST Ot 414.00 CORON ATHEROSCLER NOS TYPE VESSEL, NATIV 07/06/2016 BAIMA, LEONA L CHIEF METEOROLOGIST Ot 433.10 CAROTID ARTERY OCCLUSION W O CEREBRAL IN 07/06/2016 BAIMA, LEONA L CHIEF METEOROLOGIST Ot 496 CHR AIRWAY OBSTRUCT NEC 07/06/2016 BAIMA, LEONA L CHIEF METEOROLOGIST Ot V45.81 AORTOCORONARY BYPASS 07/06/2016 WEST [place] DO Ot J44.9 CHRONIC OBSTRUCTIVE PULMONARY DISEASE , U 07/06/2016 WEST [place] DO Ot R05 COUGH 07/06/2016 [place] DO Ot R06.2 WHEEZING 07/06/2016 WEST [place] DO Ot Z99.81 DEPENDENCE ON SUPPLEMENTAL OXYGEN 07/06/2016 [place] DO Ot J44.9 CHRONIC OBSTRUCTIVE PULMONARY DISEASE , U 07/06/2016 WEST [place] DO Ot R05 COUGH 07/06/2016 JENNY CRAVEN FACC, ALI FACP CCDS Ot I70.213 ATHSCL [place] ARTERIES OF EXTRM W INTRMT 07/06/2016 JENNY WHITAKERC, ALI FACP CCDS Ot E78.4 OTHER HYPERLIPIDEMIA 07/06/2016 JENNY CRAVEN FACC, ALI FACP CCDS Ot I10 ESSENTIAL (PRIMARY) HYPERTENSION 07/06/2016 JENNY CRAVEN FACC, ALI FACP CCDS Ot I25.10 ATHSCL HEART DISEASE OF [place] CORONARY 07/06/2016 JENNY CRAVEN FACC, ALI FACP CCDS Ot 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 07/06/2016 JENNY CRAVEN FACC, ALI FACP CCDS Ot I70.213 ATHSCL [place] ARTERIES OF EXTRM W INTRMT 07/06/2016 JENNY CRAVEN FACC, ALI FACP CCDS Ot J43.8 OTHER EMPHYSEMA 07/06/2016 JENNY CRAVEN FAC, ALI FACP CCDS Ot M79.605 PAIN IN LEFT LEG 07/06/2016 GELLENDER DO, WEST Dominguez Ot J44.9 CHRONIC OBSTRUCTIVE PULMONARY DISEASE , U 07/06/2016 GELLENDER DO, WEST Dominguez Ot R05 COUGH 07/06/2016 GELLENDER DO, WEST Dominguez Ot R07.89 OTHER CHEST PAIN 07/06/2016 GELLENDER DO, WEST Dominguez Ot 496 CHR AIRWAY OBSTRUCT NEC 07/06/2016 GELLENDER DO, WEST Dominguez Ot 786.50 CHEST PAIN NOS 07/06/2016 GELLENDER DO, WEST Dominguez Ot 496 CHR AIRWAY OBSTRUCT NEC 07/06/2016 GELLENDER DO, WEST Dominguez Ot 786.05 SHORTNESS OF BREATH 07/06/2016 GELLENDER DO, WEST Dominguez Ot 786.2 COUGH 07/06/2016 GELLENDER DO, WEST Dominguez Ot 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 07/06/2016 GELLENDER DO, WEST Dominguez Ot 490 BRONCHITIS NOS 07/06/2016 GELLENDER DO, WEST Dominguez Ot 496 CHR AIRWAY OBSTRUCT NEC 07/06/2016 GELLENDER DO, WEST Dominguez Ot 491.20 OBSTR CHRONIC BRONCHITIS, W/O EXACERBATI 07/06/2016 GELLENDER DO, WEST Dominguez Ot 492.0 EMPHYSEMATOUS BLEB 07/06/2016 GELLENDER DO, WEST Dominguez Ot 724.5 BACKACHE NOS 07/06/2016 GELLENDER DO, WEST Dominguez Ot 786.05 SHORTNESS OF BREATH 07/06/2016 GELLENDER DO, WEST Dominguez Ot 786.2 COUGH 07/06/2016 GELLENDER DO, WEST Dominguez Ot 786.59 CHEST PAIN NEC 07/06/2016 GELLENDER DO, WEST Dominguez Ot 789.01 ABDOMINAL PAIN, RIGHT UPPER QUADRANT 07/06/2016 GELLENDER DO, WEST Dominguez Ot 789.01 ABDOMINAL PAIN, RIGHT UPPER QUADRANT 07/06/2016 PARISA QUINTANILLA WEST Dominguez Ot 786.05 SHORTNESS OF BREATH 07/06/2016 PARISA QUINTANILLA WEST Dominguez Ot 786.2 COUGH 07/06/2016 Ot V45.81 AORTOCORONARY BYPASS 07/06/2016 Ot V57.89 REHABILITATION PROC NEC 07/06/2016 Ot V58.73 AFTERCARE POST SURGERY CIRULATORY SYSTEM 07/06/2016 BAIMA, LEONA L CHIEF METEOROLOGIST Ot 272.4 HYPERLIPIDEMIA NEC/NOS 07/06/2016 BAIMA, LEONA L CHIEF METEOROLOGIST Ot 401.9 HYPERTENSION NOS 07/06/2016 BAIMA, LEONA L CHIEF METEOROLOGIST Ot 414.00 CORON ATHEROSCLER NOS TYPE VESSEL, NATIV 07/06/2016 BAIMA, LEONA L CHIEF METEOROLOGIST Ot 496 CHR AIRWAY OBSTRUCT NEC 07/06/2016 BAIMA, LEONA L CHIEF METEOROLOGIST Ot V45.81 AORTOCORONARY BYPASS 07/06/2016 BAIMA, LEONA L CHIEF METEOROLOGIST Ot 272.4 HYPERLIPIDEMIA NEC/NOS 07/06/2016 BAIMA, LEONA L CHIEF METEOROLOGIST Ot 401.9 HYPERTENSION NOS 07/06/2016 BAIMA, LEONA L CHIEF METEOROLOGIST Ot 414.00 CORON ATHEROSCLER NOS TYPE VESSEL, NATIV 07/06/2016 BAIMA, LEONA L CHIEF METEOROLOGIST Ot 433.10 CAROTID ARTERY OCCLUSION W O CEREBRAL IN 07/06/2016 BAIMA, LEONA L CHIEF METEOROLOGIST Ot 496 CHR AIRWAY OBSTRUCT NEC 07/06/2016 BAIMA, LEONA L CHIEF METEOROLOGIST Ot V45.81 AORTOCORONARY BYPASS 07/06/2016 CHANDANANILSMONTEZ WEST Alberto Ot J44.9 CHRONIC OBSTRUCTIVE PULMONARY DISEASE , U 07/06/2016 PARISA DO WEST Alberto Ot R05 COUGH 07/06/2016 PARISA QUINTANILLAWEST Ot R06.2 WHEEZING 07/06/2016 PARISA QUINTANILLAWEST Ot Z99.81 DEPENDENCE ON SUPPLEMENTAL OXYGEN 07/06/2016 CHANDANANILSMONTEZWEST Ot J44.9 CHRONIC OBSTRUCTIVE PULMONARY DISEASE , U 07/06/2016 PARISA QUINTANILLAWEST Ot R05 COUGH 07/06/2016 JENNY CRAVEN FACC, ALI FACP CCDS Ot I70.213 ATHSCL [place] ARTERIES OF EXTRM W INTRMT 07/06/2016 JENNY CRAVEN FACC, ALI FACP CCDS Ot E78.4 OTHER HYPERLIPIDEMIA 07/06/2016 JENNY WHITAKER, ALI FACP CCDS Ot I10 ESSENTIAL (PRIMARY) HYPERTENSION 07/06/2016 JENNY CRAVEN FACC, ALI FACP CCDS Ot I25.10 ATHSCL HEART DISEASE OF [place] CORONARY 07/06/2016 JENNY CRAVEN FACC, ALI FACP CCDS Ot 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 07/06/2016 JENNY CRAVEN FACC, ALI FACP CCDS Ot I70.213 ATHSCL [place] ARTERIES OF EXTRM W INTRMT 07/06/2016 JENNY CRAVEN FAC, ALI FACP CCDS Ot J43.8 OTHER EMPHYSEMA 07/06/2016 JENNY CRAVEN FACC, ALI FACP CCDS Ot M79.605 PAIN IN LEFT LEG 07/06/2016 WEST MCCAULEY DO Ot J44.9 CHRONIC OBSTRUCTIVE PULMONARY DISEASE , U 07/06/2016 WEST MCCAULEY DO Ot R05 COUGH 07/06/2016 WEST MCCAULEY DO Ot R07.89 OTHER CHEST PAIN Procedures Results Test Result Range Automated blood complete blood count (hemogram) panel - 03/20/16 09:30 Blood leukocytes automated count (number/volume) 5.8 10*3/ uL 4.3-11.0 Blood erythrocytes automated count (number/volume) 4.07 10*6 /uL 4.35-5.85 Venous blood hemoglobin measurement (mass/volume) 12.7 g/dL 11.5-16.0 Blood hematocrit (volume fraction) 39 % 35-52 Automated erythrocyte mean corpuscular volume 97 [foz_us] 80-99 Automated erythrocyte mean corpuscular hemoglobin (mass per erythrocyte) 31 pg 25-34 Automated erythrocyte mean corpuscular hemoglobin concentration measurement ( mass/volume) 32 g/dL 32-36 Automated erythrocyte distribution width ratio 14.1 % 10.0-14.5 Automated blood platelet count (count/volume) 237 10*3/uL 130-400 Automated blood platelet mean volume measurement 10.3 [foz_ us] 7.4-10.4 PT panel in platelet poor plasma by coagulation assay - 03/20/16 09:30 Prothrombin time (PT) in platelet poor plasma by coagulation assay 12.4 s 12.2-14.7 INR in platelet poor plasma or blood by coagulation assay 1.0 0.8-1.4 Activated partial thromboplastin time (aPTT) in platelet poor plasma bycoagulation assay - 03/20/16 09:30 Activated partial thromboplastin time (aPTT) in platelet poor plasma bycoagulation assay 29 s 24-35 Comprehensive metabolic panel - 03/20/16 09:30 Serum or plasma sodium measurement (moles/volume) 141 mmol/ L 135-145 Serum or plasma potassium measurement (moles/volume) 4.0 mmol/L 3.6-5.0 Serum or plasma chloride measurement (moles/volume) 101 mmol /L 98-107 Carbon dioxide 33 mmol/L 21-32 Serum or plasma anion gap determination (moles/volume) 7 mmol/L 5-14 Serum or plasma urea nitrogen measurement (mass/volume) 13 mg/dL 7-18 Serum or plasma creatinine measurement (mass/volume) 0.84 mg /dL 0.60-1.30 Serum or plasma urea nitrogen/creatinine mass ratio 15 NRG Serum or plasma creatinine measurement with calculation of estimated glomerular filtration rate > NRG Serum or plasma glucose measurement (mass/volume) 104 mg/dL 70-105 Serum or plasma calcium measurement (mass/volume) 9.4 mg/dL 8.5-10.1 Serum or plasma total bilirubin measurement (mass/volume) 0.4 mg/dL 0.1-1.0 Serum or plasma alkaline phosphatase measurement (enzymatic activity/volume) 69 U/L 40-136 Serum or plasma aspartate aminotransferase measurement (enzymatic activity/ volume) 24 U/L 5-34 Serum or plasma alanine aminotransferase measurement (enzymatic activity/volume ) 23 U/L 0-55 Serum or plasma protein measurement (mass/volume) 6.9 g/dL 6.4-8.2 Serum or plasma albumin measurement (mass/volume) 4.0 g/dL 3.2-4.5 Lipid 1996 panel - 03/20/16 09:30 Serum or plasma triglyceride measurement (mass/volume) 50 mg /dL <150 Serum or plasma cholesterol measurement (mass/volume) 142 mg /dL < 200 Serum or plasma cholesterol in HDL measurement (mass/volume) 63 mg/dL 40-60 Cholesterol in LDL [mass/volume] in serum or plasma by direct assay 60 mg/dL 1-129 Serum or plasma cholesterol in VLDL measurement (mass/volume) 10 mg/dL 5-40 Methicillin resistant Staphylococcus aureus (MRSA) screening culture - 09:30 Methicillin resistant Staphylococcus aureus (MRSA) screening culture NEG NRG Activated partial thromboplastin time (aPTT) in platelet poor plasma bycoagulation assay - 03/20/16 15:30 Activated partial thromboplastin time (aPTT) in platelet poor plasma bycoagulation assay 169 s 24-35 Activated partial thromboplastin time (aPTT) in platelet poor plasma bycoagulation assay - 03/20/16 16:47 Activated partial thromboplastin time (aPTT) in platelet poor plasma bycoagulation assay 72 s 24-35 Activated partial thromboplastin time (aPTT) in platelet poor plasma bycoagulation assay - 03/20/16 17:40 Activated partial thromboplastin time (aPTT) in platelet poor plasma bycoagulation assay 43 s 24-35 Complete blood count (CBC) with automated white blood cell (WBC) differential - 03/21/16 04:00 Blood leukocytes automated count (number/volume) 6.0 10*3/ uL 4.3-11.0 Blood erythrocytes automated count (number/volume) 3.65 10*6 /uL 4.35-5.85 Venous blood hemoglobin measurement (mass/volume) 10.9 g/dL 11.5-16.0 Blood hematocrit (volume fraction) 36 % 35-52 Automated erythrocyte mean corpuscular volume 98 [foz_us] 80-99 Automated erythrocyte mean corpuscular hemoglobin (mass per erythrocyte) 30 pg 25-34 Automated erythrocyte mean corpuscular hemoglobin concentration measurement ( mass/volume) 31 g/dL 32-36 Automated erythrocyte distribution width ratio 14.2 % 10.0-14.5 Automated blood platelet count (count/volume) 206 10*3/uL 130-400 Automated blood platelet mean volume measurement 10.9 [foz_ us] 7.4-10.4 Automated blood neutrophils/100 leukocytes 69 % 42-75 Automated blood lymphocytes/100 leukocytes 16 % 12-44 Blood monocytes/100 leukocytes 10 % 0-12 Automated blood eosinophils/100 leukocytes 5 % 0-10 Automated blood basophils/100 leukocytes 0 % 0-10 Blood neutrophils automated count (number/volume) 4.1 10*3 1.8-7.8 Blood lymphocytes automated count (number/volume) 1.0 10*3 1.0-4.0 Blood monocytes automated count (number/volume) 0.6 10*3 0.0-1.0 Automated eosinophil count 0.3 10*3/uL 0.0-0.3 Automated blood basophil count (count/volume) 0.0 10*3/uL 0.0-0.1 Whole blood basic metabolic panel - 03/21/16 04:00 Serum or plasma sodium measurement (moles/volume) 139 mmol/ L 135-145 Serum or plasma potassium measurement (moles/volume) 3.9 mmol/L 3.6-5.0 Serum or plasma chloride measurement (moles/volume) 104 mmol /L 98-107 Carbon dioxide 25 mmol/L 21-32 Serum or plasma anion gap determination (moles/volume) 10 mmol/L 5-14 Serum or plasma urea nitrogen measurement (mass/volume) 14 mg/dL 7-18 Serum or plasma creatinine measurement (mass/volume) 0.80 mg /dL 0.60-1.30 Serum or plasma urea nitrogen/creatinine mass ratio 18 NRG Serum or plasma creatinine measurement with calculation of estimated glomerular filtration rate > NRG Serum or plasma glucose measurement (mass/volume) 86 mg/dL 70-105 Serum or plasma calcium measurement (mass/volume) 8.2 mg/dL 8.5-10.1 Serum or plasma phosphate measurement (mass/volume) - 03/21/16 04:00 Serum or plasma phosphate measurement (mass/volume) 4.0 mg/ dL 2.3-4.7 Magnesium - 03/21/16 04:00 Magnesium 1.9 mg/dL 1.8-2.4 Complete blood count (CBC) with automated white blood cell (WBC) differential - 04/18/16 12:45 Blood leukocytes automated count (number/volume) 10.5 10*3/ uL 4.3-11.0 Blood erythrocytes automated count (number/volume) 4.06 10*6 /uL 4.35-5.85 Venous blood hemoglobin measurement (mass/volume) 12.3 g/dL 11.5-16.0 Blood hematocrit (volume fraction) 41 % 35-52 Automated erythrocyte mean corpuscular volume 100 [foz_us] 80-99 Automated erythrocyte mean corpuscular hemoglobin (mass per erythrocyte) 30 pg 25-34 Automated erythrocyte mean corpuscular hemoglobin concentration measurement ( mass/volume) 30 g/dL 32-36 Automated erythrocyte distribution width ratio 14.1 % 10.0-14.5 Automated blood platelet count (count/volume) 287 10*3/uL 130-400 Automated blood platelet mean volume measurement 10.3 [foz_ us] 7.4-10.4 Automated blood neutrophils/100 leukocytes 71 % 42-75 Automated blood lymphocytes/100 leukocytes 13 % 12-44 Blood monocytes/100 leukocytes 10 % 0-12 Automated blood eosinophils/100 leukocytes 5 % 0-10 Automated blood basophils/100 leukocytes 0 % 0-10 Blood neutrophils automated count (number/volume) 7.5 10*3 1.8-7.8 Blood lymphocytes automated count (number/volume) 1.4 10*3 1.0-4.0 Blood monocytes automated count (number/volume) 1.0 10*3 0.0-1.0 Automated eosinophil count 0.6 10*3/uL 0.0-0.3 Automated blood basophil count (count/volume) 0.0 10*3/uL 0.0-0.1 PT panel in platelet poor plasma by coagulation assay - 04/18/16 12:45 Prothrombin time (PT) in platelet poor plasma by coagulation assay 11.9 s 12.2-14.7 INR in platelet poor plasma or blood by coagulation assay 0.9 0.8-1.4 Activated partial thromboplastin time (aPTT) in platelet poor plasma bycoagulation assay - 04/18/16 12:45 Activated partial thromboplastin time (aPTT) in platelet poor plasma bycoagulation assay 26 s 24-35 Comprehensive metabolic panel - 04/18/16 12:45 Serum or plasma sodium measurement (moles/volume) 141 mmol/ L 135-145 Serum or plasma potassium measurement (moles/volume) 3.9 mmol/L 3.6-5.0 Serum or plasma chloride measurement (moles/volume) 94 mmol/ L 98-107 Carbon dioxide 38 mmol/L 21-32 Serum or plasma anion gap determination (moles/volume) 9 mmol/L 5-14 Serum or plasma urea nitrogen measurement (mass/volume) 14 mg/dL 7-18 Serum or plasma creatinine measurement (mass/volume) 0.88 mg /dL 0.60-1.30 Serum or plasma urea nitrogen/creatinine mass ratio 16 NRG Serum or plasma creatinine measurement with calculation of estimated glomerular filtration rate > NRG Serum or plasma glucose measurement (mass/volume) 152 mg/dL 70-105 Serum or plasma calcium measurement (mass/volume) 8.7 mg/dL 8.5-10.1 Serum or plasma total bilirubin measurement (mass/volume) 0.6 mg/dL 0.1-1.0 Serum or plasma alkaline phosphatase measurement (enzymatic activity/volume) 76 U/L 40-136 Serum or plasma aspartate aminotransferase measurement (enzymatic activity/ volume) 18 U/L 5-34 Serum or plasma alanine aminotransferase measurement (enzymatic activity/volume ) 28 U/L 0-55 Serum or plasma protein measurement (mass/volume) 7.1 g/dL 6.4-8.2 Serum or plasma albumin measurement (mass/volume) 4.0 g/dL 3.2-4.5 Magnesium - 04/18/16 12:45 Magnesium 2.1 mg/dL 1.8-2.4 Serum or plasma troponin i.cardiac measurement (mass/volume) - 04/18/16 12:45 Serum or plasma troponin i.cardiac measurement (mass/volume) < ng/mL <0.30 Serum or plasma lithium measurement (moles/volume) - 04/18/16 12:45 BNP level 481.4 pg/mL <100.0 Arterial blood gas measurement - 04/18/16 13:00 Blood pCO2 70 mm[Hg] 35-45 Blood pO2 56 mm[Hg] 79-93 Arterial blood bicarbonate measurement (moles/volume) 41 mmol/L 23-27 Arterial blood base excess by calculation 12.9 mmol/L -2.5-2.5 Arterial blood oxygen saturation measurement 92 % 94-100 * Inhaled oxygen flow rate 2 NRG Arterial blood pH measurement with patient temperature correction 7.39 7.37-7.43 Arterial blood carbon dioxide, total measurement (moles/volume) 43.2 mmol/L 21.0-31.0 Body site LEFT BRACHIAL NRG Assessment of wrist artery patency prior to arterial puncture POSITIVE NRG Setting of ventilation mode NO NRG Measurement of body temperature 97.2 NRG Serum or plasma troponin i.cardiac measurement (mass/volume) - 04/18/16 18:35 Serum or plasma troponin i.cardiac measurement (mass/volume) < ng/mL <0.30 Sputum Gram stain - 04/18/16 21:08 GRAM STAIN SPUTUM FEW GRAM POSITIVE RODS NRG Bacterial sputum culture - 04/18/16 21:08 FREE TEXT EXTERNAL PLUS NORMAL MARCELLO NRG QUANTITY OF GROWTH Moderate Growth NRG Bacterial sputum culture [id number] [facility] Bacterial susceptibility panel - 04/18/16 21:08 Gentamicin susceptibility test by minimum inhibitory concentration <= NRG Tobramycin susceptibility test by minimum inhibitory concentration <= NRG Piperacillin/tazobactam susceptibility test by minimum inhibitory concentration <= NRG Ciprofloxacin susceptibility test by minimum inhibitory concentration 0.5 NRG Meropenem susceptibility test by minimum inhibitory concentration <= NRG Cefepime susceptibility test by minimum inhibitory concentration 2 NRG Serum or plasma troponin i.cardiac measurement (mass/volume) - 04/19/16 00:32 Serum or plasma troponin i.cardiac measurement (mass/volume) < ng/mL <0.30 Complete blood count (CBC) with automated white blood cell (WBC) differential - 04/19/16 06:19 Blood leukocytes automated count (number/volume) 8.9 10*3/ uL 4.3-11.0 Blood erythrocytes automated count (number/volume) 4.04 10*6 /uL 4.35-5.85 Venous blood hemoglobin measurement (mass/volume) 12.1 g/dL 11.5-16.0 Blood hematocrit (volume fraction) 40 % 35-52 Automated erythrocyte mean corpuscular volume 98 [foz_us] 80-99 Automated erythrocyte mean corpuscular hemoglobin (mass per erythrocyte) 30 pg 25-34 Automated erythrocyte mean corpuscular hemoglobin concentration measurement ( mass/volume) 31 g/dL 32-36 Automated erythrocyte distribution width ratio 13.8 % 10.0-14.5 Automated blood platelet count (count/volume) 282 10*3/uL 130-400 Automated blood platelet mean volume measurement 10.6 [foz_ us] 7.4-10.4 Automated blood neutrophils/100 leukocytes 92 % 42-75 Automated blood lymphocytes/100 leukocytes 6 % 12-44 Blood monocytes/100 leukocytes 3 % 0-12 Automated blood eosinophils/100 leukocytes 0 % 0-10 Automated blood basophils/100 leukocytes 0 % 0-10 Blood neutrophils automated count (number/volume) 8.1 10*3 1.8-7.8 Blood lymphocytes automated count (number/volume) 0.5 10*3 1.0-4.0 Blood monocytes automated count (number/volume) 0.2 10*3 0.0-1.0 Automated eosinophil count 0.0 10*3/uL 0.0-0.3 Automated blood basophil count (count/volume) 0.0 10*3/uL 0.0-0.1 Comprehensive metabolic panel - 04/19/16 06:19 Serum or plasma sodium measurement (moles/volume) 140 mmol/ L 135-145 Serum or plasma potassium measurement (moles/volume) 4.1 mmol/L 3.6-5.0 Serum or plasma chloride measurement (moles/volume) 97 mmol/ L 98-107 Carbon dioxide 34 mmol/L 21-32 Serum or plasma anion gap determination (moles/volume) 9 mmol/L 5-14 Serum or plasma urea nitrogen measurement (mass/volume) 13 mg/dL 7-18 Serum or plasma creatinine measurement (mass/volume) 0.86 mg /dL 0.60-1.30 Serum or plasma urea nitrogen/creatinine mass ratio 15 NRG Serum or plasma creatinine measurement with calculation of estimated glomerular filtration rate > NRG Serum or plasma glucose measurement (mass/volume) 174 mg/dL 70-105 Serum or plasma calcium measurement (mass/volume) 9.2 mg/dL 8.5-10.1 Serum or plasma total bilirubin measurement (mass/volume) 0.5 mg/dL 0.1-1.0 Serum or plasma alkaline phosphatase measurement (enzymatic activity/volume) 89 U/L 40-136 Serum or plasma aspartate aminotransferase measurement (enzymatic activity/ volume) 20 U/L 5-34 Serum or plasma alanine aminotransferase measurement (enzymatic activity/volume ) 27 U/L 0-55 Serum or plasma protein measurement (mass/volume) 7.0 g/dL 6.4-8.2 Serum or plasma albumin measurement (mass/volume) 4.1 g/dL 3.2-4.5 Blood manual differential performed detection - 04/19/16 06:19 Blood monocytes/100 leukocytes 2 % NRG Manual blood segmented neutrophils/100 leukocytes 93 % NRG Blood band neutrophils/100 leukocytes 0 % NRG Manual blood lymphocytes/100 leukocytes 5 % NRG Manual eosinophils/100 leukocytes in nose 0 % NRG Manual blood basophils/100 leukocytes 0 % NRG Blood erythrocyte morphology finding identification NORMAL NR Automated blood complete blood count (hemogram) panel - 07/03/16 07:56 Blood leukocytes automated count (number/volume) 9.6 10*3/ uL 4.3-11.0 Blood erythrocytes automated count (number/volume) 4.11 10*6 /uL 4.35-5.85 Venous blood hemoglobin measurement (mass/volume) 11.9 g/dL 11.5-16.0 Blood hematocrit (volume fraction) 39 % 35-52 Automated erythrocyte mean corpuscular volume 95 [foz_us] 80-99 Automated erythrocyte mean corpuscular hemoglobin (mass per erythrocyte) 29 pg 25-34 Automated erythrocyte mean corpuscular hemoglobin concentration measurement ( mass/volume) 30 g/dL 32-36 Automated erythrocyte distribution width ratio 14.1 % 10.0-14.5 Automated blood platelet count (count/volume) 379 10*3/uL 130-400 Automated blood platelet mean volume measurement 10.5 [foz_ us] 7.4-10.4 PT panel in platelet poor plasma by coagulation assay - 07/03/16 07:56 Prothrombin time (PT) in platelet poor plasma by coagulation assay 12.8 s 12.2-14.7 INR in platelet poor plasma or blood by coagulation assay 1.0 0.8-1.4 Activated partial thromboplastin time (aPTT) in platelet poor plasma bycoagulation assay - 07/03/16 07:56 Activated partial thromboplastin time (aPTT) in platelet poor plasma bycoagulation assay 28 s 24-35 Comprehensive metabolic panel - 07/03/16 07:56 Serum or plasma sodium measurement (moles/volume) 139 mmol/ L 135-145 Serum or plasma potassium measurement (moles/volume) 4.8 mmol/L 3.6-5.0 Serum or plasma chloride measurement (moles/volume) 96 mmol/ L 98-107 Carbon dioxide 33 mmol/L 21-32 Serum or plasma anion gap determination (moles/volume) 10 mmol/L 5-14 Serum or plasma urea nitrogen measurement (mass/volume) 19 mg/dL 7-18 Serum or plasma creatinine measurement (mass/volume) 0.89 mg /dL 0.60-1.30 Serum or plasma urea nitrogen/creatinine mass ratio 21 NRG Serum or plasma creatinine measurement with calculation of estimated glomerular filtration rate > NRG Serum or plasma glucose measurement (mass/volume) 219 mg/dL 70-105 Serum or plasma calcium measurement (mass/volume) 9.7 mg/dL 8.5-10.1 Serum or plasma total bilirubin measurement (mass/volume) 0.4 mg/dL 0.1-1.0 Serum or plasma alkaline phosphatase measurement (enzymatic activity/volume) 89 U/L 40-136 Serum or plasma aspartate aminotransferase measurement (enzymatic activity/ volume) 14 U/L 5-34 Serum or plasma alanine aminotransferase measurement (enzymatic activity/volume ) 19 U/L 0-55 Serum or plasma protein measurement (mass/volume) 6.8 g/dL 6.4-8.2 Serum or plasma albumin measurement (mass/volume) 3.7 g/dL 3.2-4.5 Lipid 1996 panel - 07/03/16 07:56 Serum or plasma triglyceride measurement (mass/volume) 85 mg /dL <150 Serum or plasma cholesterol measurement (mass/volume) 145 mg /dL < 200 Serum or plasma cholesterol in HDL measurement (mass/volume) 48 mg/dL 40-60 Cholesterol in LDL [mass/volume] in serum or plasma by direct assay 75 mg/dL 1-129 Serum or plasma cholesterol in VLDL measurement (mass/volume) 17 mg/dL 5-40 Methicillin resistant Staphylococcus aureus (MRSA) screening culture - 07:56 Methicillin resistant Staphylococcus aureus (MRSA) screening culture NEG NRG Encounters ACCT No. Visit Date/Time Discharge Status Pt. Type Provider Facility Loc./Unit Complaint [id number] 07/03/2016 07:15:00 2016 16:40:00 DIS Outpatient LEONA COLES [facility] CATH PAD,CAD,CAROTID ARTERY DISEASE [id number] 04/18/2016 14:15:00 2016 16:20:00 DIS Inpatient WEST MCCAULEY DO [facility] 4TH ACUTE COPD EXACERBATION/ CHEST PAIN [id number] 03/20/2016 08:44:00 2015 10:00:00 DIS Outpatient NORMA ALVARADO MD, FACC, FACP CCDS [facility] CATH PVD,CAD [id number] 07/12/2015 06:56:00 2015 09:52:00 DIS Outpatient NORMA ALVARADO MD, FACC, FACP CCDS [facility] CATH SOA,ANGINA,CHEST PAIN,HTN, CAD [id number] 01/03/2015 09:37:00 2014 23:59:59 CLS Outpatient BAIMILADYLEONA Porsche CHIEF METEOROLOGIST [facility] CARD CAD [id number] 10/19/2014 11:27:00 2014 13:13:00 DIS Emergency ZHEN BECKER VAULT MAKER [facility] ER FALL/L KNEE PAIN [id number] 07/20/2014 15:00:00 2014 23:59:59 CLS Preadmit SANKET LEONA Porsche CHIEF METEOROLOGIST [facility] PULM COPD SHORTNESS OF AIR [id number] 06/17/2014 13:00:00 2014 00:01:00 DIS Outpatient BAIMILADY LOENA L CHIEF METEOROLOGIST [facility] PUL COPD SHORTNESS OF AIR [id number] 03/30/2014 13:00:00 2013 00:01:00 DIS Outpatient BAIMILADY LEONA L CHIEF METEOROLOGIST [facility] PUL COPD SHORTNESS OF AIR [id number] 11/02/2013 11:36:00 2013 12:22:00 DIS Outpatient JENNY CRAVEN FACC, NORMA VALLADARES CCDS [facility] CR STABLE ANGINA;CABG [id number] 10/19/2013 11:49:00 2013 00:01:00 DIS Outpatient JENNY CRAVEN FACC, NORMA VALLADARES CCDS [facility] CR CABG 02/18;STENT [id number] 08/03/2013 15:23:00 2013 23:59:59 CLS Outpatient WEST MCCAULEY DO [facility] RAD COPD CONGESTION COUGH SOB [id number] 06/12/2013 09:36:00 2013 23:59:59 CLS Outpatient WEST MCCAULEY DO [facility] RAD PAIN IN RUQ ABD [id number] 06/10/2013 08:53:00 2013 23:59:59 CLS Outpatient WEST MCCAULEY DO [facility] RAD RUQ PAIN,COPD,BRONCHITIS [id number] 05/21/2013 10:21:00 2013 23:59:59 CLS Outpatient WEST MCCAULEY DO [facility] RAD COPD [id number] 05/06/2013 14:54:00 2013 23:59:59 CLS Outpatient WEST MCCAULEY DO [facility] LAB MEDINA MARSA [id number] 04/14/2013 14:13:00 2013 13:00:00 DIS Inpatient WEST MCCAULEY DO [facility] SURGICAL SWB,SOB,COPD,RECENT OPEN HEART SURG [id number] 04/07/2013 14:40:00 2013 14:13:00 DIS Inpatient WEST MCCAULEY DO [facility] SURGICAL SOB,COPD,RECENT OPEN HEART SURG [id number] 04/06/2013 13:32:00 2012 23:59:59 CLS Outpatient WEST MCCAULEY DO [facility] RAD SOB,COPD,CONJESTION [id number] 02/24/2013 08:39:00 2012 16:45:00 DIS Outpatient JENNY CRAVEN FACC, NORMA WHITAKERP CCDS [facility] CATH CP,HTN [id number] 02/16/2013 11:45:00 2012 23:59:59 CLS Outpatient WEST MCCAULEY DO [facility] RAD CHEST PAIN, [id number] 09/24/2012 13:56:00 2012 23:59:59 CLS Outpatient WEST MCCAULEY DO [facility] RT COPD [id number] 07/02/2016 12:38:00 ACT Outpatient CHANDANANILSWEST BRADSHAW DO [facility] RAD COUGH,RT SIDE OF CHEST,COPD [id number] 03/26/2016 10:20:00 ACT Outpatient JENNY CRAVEN FACC, NORMA VALLADARES CCDS [facility] RAD PAIN IN LT LEG [id number] 02/22/2016 08:37:00 ACT Outpatient JENNY CRAVEN FACC, NORMA WHITAKERP CCDS [facility] RAD CAD,COPD,HLP,HTN [id number] 02/21/2016 13:13:00 ACT Outpatient JENNY CRAVEN FACC, NORMA VALLADARES CCDS [facility] RAD CAD,COPD,HLD,HTN [id number] 12/17/2015 12:31:00 ACT Outpatient NALINI JASMINE APRN [facility] QUICK [id number] 06/27/2015 13:54:00 ACT Outpatient WEST MCCAULEY DO [facility] RAD COPD,COUGH,CONGESTION,BRONCHITIS [id number] 03/14/2015 14:30:00 ACT Outpatient WEST MCCAULEY DO [facility] RAD COUGHING,WHEEZING,COPD ON OX [id number] 11/04/2013 11:00:00 Document Registration
== END 2016-07-03 16:40 | disposition home or self-care (01) ==
LOC: DELPENDDIS → CATH 07:15 → ICU 11:25 → CATH 16:40
PROVIDERS: ATTEND Nurse Practitioner Family
DX: I70.213 Atherosclerosis of native arteries of extremities with intermittent claudication, bilateral legs (principal); I25.10 Atherosclerotic heart disease of native coronary artery without angina pectoris; I10 Essential (primary) hypertension; J44.9 Chronic obstructive pulmonary disease, unspecified; E03.9 Hypothyroidism, unspecified; I70.1 Atherosclerosis of renal artery; I27.2 Other secondary pulmonary hypertension; Z87.891 Personal history of nicotine dependence; Z79.899 Other long term (current) drug therapy; Z95.1 Presence of aortocoronary bypass graft; Z95.820 Peripheral vascular angioplasty status with implants and grafts
CPT/HCPCS: 36415; 37220; 80053; 80061; 85027; 85610; 85730; 87081; 93005

== ENCOUNTER → 2016-08-02 | Outpatient (CLI) | payer MEDICARE, OTHER ==
[~2016-08-02] MED LIST changes: +ALBU90AE IH; +GLYC10.7 IH
[2016-08-02 13:18] LABS: BASOPHILS % (AUTO) 0 % (0-10); EOSINOPHILS # (AUTO) 0.3 10^3/uL (0.0-0.3); EOSINOPHILS % (AUTO) 4 % (0-10); LYMPHOCYTES # (AUTO) 0.8 X 10^3 (1.0-4.0); LYMPHOCYTES % (AUTO) 10 % (12-44); MEAN CORPUSCULAR HEMOGLOBIN 29 PG (25-34); MEAN CORPUSCULAR HGB CONC 30 G/DL (32-36); MEAN CORPUSCULAR VOLUME 97 FL (80-99); MEAN PLATELET VOLUME 9.8 FL (7.4-10.4); MONOCYTES # (AUTO) 0.6 X 10^3 (0.0-1.0); MONOCYTES % (AUTO) 7 % (0-12); NEUTROPHILS # (AUTO) 6.6 X 10^3 (1.8-7.8); NEUTROPHILS % (AUTO) 78 % (42-75); PLATELET COUNT 360 10^3/uL (130-400); RED BLOOD COUNT 3.85 10^6/uL (4.35-5.85); RED CELL DISTRIBUTION WIDTH 15.3 % (10.0-14.5); WHITE BLOOD COUNT 8.4 10^3/uL (4.3-11.0)
--- NOTE | 2016-08-02 13:22 | Diagnostic Imaging Report ---
INDICATION: Lower respiratory infection. PA and lateral chest. FINDINGS: There are postop changes from CABG surgery. Heart size and pulmonary vascularity are normal. There are some emphysematous changes in the lungs with bullae and/or pneumatoceles at the left apex. IMPRESSION: COPD. No acute abnormalities seen. Dictated by: Dictated on workstation # [id number]
== END ==
LOC: RAD 12:54
PROVIDERS: ATTEND Family Medicine
DX: J44.9 Chronic obstructive pulmonary disease, unspecified (principal)
CPT/HCPCS: 36415; 71020; 85025

== ENCOUNTER 2016-09-04 14:09 | Inpatient (IN) | payer MEDICARE, OTHER ==
[~2016-09-04] VITALS: Ht 160 cm; Wt 54.6 kg
[2016-09-04] MEDS ORDERED: RT-ALBUTEROL/IPRATROPIUM 3 ML (DUONEB) VIAL ONE ×3 (14:27→16:48)
[2016-09-04] MEDS ORDERED: methylPREDNISolone 125 MG (Solu-MEDROL) VIAL IVP ONE (14:45)
[2016-09-04] MEDS ORDERED: RT-ALBUTEROL/IPRATROPIUM 3 ML (DUONEB) VIAL INH ONE (14:45)
--- NOTE | 2016-09-04 14:54 | ED General ---
General Chief Complaint: Respiratory Problems Stated Complaint: SOB Nursing Triage Note: To ER with reports of increasing shortness of breath over the past month. Patient was seen at Dr. Mccauley's office and told to come to ER. Oxygen saturations on home oxygen of 2LPM were 77%. Increased patient to 4LPM with saturations increasing to 93%. Duo-neb treatment initiated by this RN. Nursing Sepsis Screen: No Definite Risk Source of Information: Patient Exam Limitations: No Limitations History of Present Illness Time Seen by Provider: 14:20 Initial Comments This 71-year-old woman presents today with with worsening shortness of breath over the past month and more acutely over the past 24 hours. She has had associated cough but denies fever. She does nebulizer treatments 5 times a day but has had worsening symptoms despite. She has history of coronary artery disease and COPD. She has a smoking history as well. Allergies and Home Medications Allergies Coded Allergies: Penicillins (Verified Allergy, Severe, ANAPHYLAXIS, 09/04/16) hydrochlorothiazide (Verified Allergy, Unknown, 09/04/16) levofloxacin (Verified Allergy, Unknown, 09/04/16) penicillin G (Verified Allergy, Unknown, 09/04/16) Home Medications Acetaminophen with Codeine 1 Each Tablet, 1 TAB PO HS, (Reported) Albuterol Sulfate 2.5 Mg/3 Ml Vial.neb, 2.5 MG NEB 5XD PRN for SHORTNESS OF BREATH, (Reported) Albuterol Sulfate 1 Puff Puff, 2 PUFF IH Q4H PRN for SHORTNESS OF BREATH, ( Reported) 1 PUFF = 90 MCG Atorvastatin Calcium 40 Mg Tablet, 40 MG PO HS, (Reported) Budesonide/Formoterol Fumarate 10.2 Gm Hfa.aer.ad, 2 PUFF IH BID, (Reported) Cetirizine HCl 10 Mg Tablet, 10 MG PO HS, (Reported) Furosemide 20 Mg Tablet, 20 MG PO DAILY, (Reported) Levothyroxine Sodium 50 Mcg Tablet, 50 MCG PO HS, (Reported) Lisinopril 10 Mg Tablet, 10 MG PO DAILY, (Reported) Metoprolol Tartrate 50 Mg Tablet, 50 MG PO BID, (Reported) Multivits,Stress Formula 1 Each Tablet, 1 TAB PO DAILY, (Reported) Nitroglycerin 0.4 Mg Btl, 0.4 MG SL UD PRN for CHEST PAIN, (Reported) 1 TAB EVERY 5 MINUTES FOR 3 DOSES NEEDED FOR CHEST PAIN Pantoprazole Sodium 40 Mg Tablet.dr, 40 MG PO DAILY, (Reported) Prednisone 10 Mg Tab.ds.pk, 10 MG PO DAILY, #42 Take 6 tabs(60mg)daily,decrease by 1 tab(10mg)every other day. Prescribed by: ALISHA PATEL on 09/06/16 1227 Promethazine HCl/Codeine 118 Ml Syrup, 10 ML PO TID PRN for COUGH, (Reported) Tiotropium [place] 4 Gm Mist.inhal, 2 PUFF IH DAILY, (Reported) Ubidecarenone 200 Mg Capsule, 200 MG PO HS, (Reported) Constitutional: no symptoms reported EENTM: no symptoms reported Respiratory: see HPI Cardiovascular: see HPI Gastrointestinal: no symptoms reported Genitourinary: no symptoms reported : No Musculoskeletal: no symptoms reported Skin: no symptoms reported Psychiatric/Neurological: No Symptoms Reported Hematologic/Lymphatic: No Symptoms Reported Past Xpknmlz-Wlczmz-Gvqldo Hx Patient Social History Alcohol Use: Denies Use Recreational Drug Use: No Smoking Status: Former Smoker Type Used: Cigarettes Former Smoker/When Quit: Jul 11, 2012 Recent Foreign Travel: No Contact w/Someone Who Travel: No Recent Infectious Disease Expo: No Recent Hopitalizations: No Immunizations Up To Date Tetanus Booster (TDap): Less than 5yrs Date of Pneumonia Vaccine: Feb 07, 2016 Date of Influenza Vaccine: Feb 07, 2016 Seasonal Allergies Seasonal Allergies: No Surgeries HX Surgeries: Yes (CARDIAC CATH) Surgeries: CABG, Vascular Surgery (lower extremity stents) Respiratory Hx Respiratory Disorders: Yes Respiratory Disorders: COPD (dependent on supplemental oxygen) Cardiovascular Hx Cardiac Disorders: Yes Cardiac Disorders: Coronary Artery Disease, Hypertension, Peripheral Vascular Neurological Hx Neurological Disorders: Yes (ANXIETY) Reproductive System Hx Reproductive Disorders: Yes (26 YRS. 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) HEENT Disorders: Cataract Loss of Vision: Denies Hearing Impairment: Denies Cancer Hx Cancer: No Psychosocial Hx Psychiatric Problems: No Integumentary HX Skin/Integumentary Disorder: No Blood Transfusions Adverse Reaction to a Blood Tr: No Family Medical History Family Medial History: Chest pain 09 SISTER Congestive heart failure G-MILADY Family history: Cardiovascular disease 03 FATHER (68) 09 SISTER Family history: Hypertension 03 FATHER 09 SISTER G-MILADY Stroke Physical Exam Vital Signs Vital Sign - Last 12Hours 09/04/16 09/04/16 14:32 20:59 Temp 98.7 Pulse 79 Resp 26 B/P (MAP) 100/56 Pulse Ox 77 O2 Delivery Nasal Cannula O2 Flow Rate 2.00 Capillary Refill : Less Than 3 Seconds General Appearance: WD/WN, Mild Distress HEENT: PERRL/EOMI, Normal ENT Inspection Neck: Normal Inspection Respiratory: Accessory Muscle Use, Respiratory Distress (Mild), Wheezing Cardiovascular: Regular Rate, Rhythm, No Edema, No Murmur Gastrointestinal: Normal Bowel Sounds, Non Tender, Soft Extremity: Normal Inspection, Other (subtle tenderness in the calves equal bilaterally. No erythema or heat. 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 Norm as Tested Skin: Normal Color, Warm/Dry Progress/Results/Core Measures Results/Orders Lab Results Laboratory Tests Test 09/06/16 05:16 Range/Units White Blood Count 14.6 H 4.3-11.0 10^3/uL Red Blood Count 3.61 L 4.35-5.85 10^6/uL Hemoglobin 10.6 L 11.5-16.0 G/DL Hematocrit 35 35-52 % Mean Corpuscular Volume 98 80-99 FL Mean Corpuscular Hemoglobin 29 25-34 PG Mean Corpuscular Hemoglobin Concent 30 L 32-36 G/DL Red Cell Distribution Width 15.6 H 10.0-14.5 % Platelet Count 411 H 130-400 10^3/uL Mean Platelet Volume 10.7 H 7.4-10.4 FL Neutrophils (%) (Auto) 94 H 42-75 % Lymphocytes (%) (Auto) 3 L 12-44 % Monocytes (%) (Auto) 3 0-12 % Eosinophils (%) (Auto) 0 0-10 % Basophils (%) (Auto) 0 0-10 % Neutrophils # (Auto) 13.7 H 1.8-7.8 X 10^3 Lymphocytes # (Auto) 0.5 L 1.0-4.0 X 10^3 Monocytes # (Auto) 0.4 0.0-1.0 X 10^3 Eosinophils # (Auto) 0.0 0.0-0.3 10^3/uL Basophils # (Auto) 0.0 0.0-0.1 10^3/uL Sodium Level 136 135-145 MMOL/L Potassium Level 4.1 3.6-5.0 MMOL/L Chloride Level 92 L 98-107 MMOL/L Carbon Dioxide Level 33 H 21-32 MMOL/L Anion Gap 11 5-14 MMOL/L Blood Urea Nitrogen 14 7-18 MG/DL Creatinine 0.94 0.60-1.30 MG/DL Estimat Glomerular Filtration Rate 59 BUN/Creatinine Ratio 15 Glucose Level 224 H 70-105 MG/DL Calcium Level 9.7 8.5-10.1 MG/DL Total Bilirubin 0.3 0.1-1.0 MG/DL Aspartate Amino Transf (AST/SGOT) 23 5-34 U/L Alanine Aminotransferase (ALT/SGPT) 26 0-55 U/L Alkaline Phosphatase 89 40-136 U/L Total Protein 6.9 6.4-8.2 G/DL Albumin 3.8 3.2-4.5 G/DL My Orders Medications Given in ED Vital Signs/I&O Progress Note #1: Time: 16:30 Progress Note Patient had significant improvement in respiratory status after DuoNeb treatment and Solu-Medrol. D-dimer returned slightly elevated. Patient was taken to CT for angiogram. Progress Note #2: Time: 17:50 Progress Note Irregular mass was noted on CT angiogram. CT was negative for pulmonary embolus. Case was discussed with Dr. Mccauley who requested consultation with Dr. Dubois and Dr. Canales. Case was discussed with each of them. Findings were discussed with patient. She is aware of the need for further workup. Patient will be treated for COPD exacerbation with scheduled DuoNeb treatments and Solu-Medrol. Dr. Mccauley requested daily weights and a dose of Lasix 20 mg IV after admission weight. BNP was modestly elevated and there was some question of congestion on her x-ray. Dr. Contreras and Dr. Dubois were notified of consultation and will see the patient tomorrow. Patient's dyspnea, wheezing , and chest pain improved with DuoNeb treatment 2. ECG Initial ECG Impression Date: September 04, 2016 Initial ECG Impression Time: 14:44 Initial ECG Rate: 74 Initial ECG Rhythm: Normal Sinus Initial ECG Intervals: Normal Initial ECG Impression: Normal Comment Normal sinus rhythm with no ST elevation or depression. No abnormal intervals or axis deviation. Diagnostic Imaging Diagonstic Imaging: Xray Plain Films/CT/US/NM/MRI: chest Comments Chest x-ray viewed by me and report reviewed. See report below: NAME: [facility] REC#: [id number] PT STATUS: REG ER : 1945 PHYSICIAN: WILNER ZUNIGA MD ADMIT DATE: 09/04/16/ER Signed Date of Exam: 09/04/16 CHEST 1 VIEW, AP/PA ONLY Portable upright radiograph of the chest. INDICATION: Shortness of breath. FINDINGS: The lungs are hyperinflated. Minimal bibasilar opacities seen likely related to atelectasis. The heart size is at the upper limits of normal. There is slight prominence of interstitial markings perhaps increased minimally from 08/02/2016, could relate to minimal vascular congestion. No significant effusion or pneumothorax. Surgical clips in the mediastinum, sternotomy wires and the sutures projecting over the left chest seen. IMPRESSION: COPD. Bibasilar minimal atelectasis. Question of minimal vascular congestion. Dictated by: Dictated on workstation # [id number] Dict: 09/04/16 1506 Trans: 09/04/16 1528 Interpreted by: SERAFIN LAKHANI MD Electronically signed by: SERAFIN LAKHANI MD 09/04/16 1528 Diagonstic Imaging: CT Plain Films/CT/US/NM/MRI: chest Comments CT angiogram of the chest viewed by me and report reviewed. See report below: NAME: JUAN FRANC[facility]CO [facility] REC#: [id number] PT STATUS: REG ER : 1945 PHYSICIAN: WILNER ZUNIGA MD ADMIT DATE: 09/04/16/ER Draft Date of Exam:09/04/16 CT ANGIO CHEST W PROCEDURE: CT angiography of the chest with contrast. TECHNIQUE: Multiple contiguous axial images were obtained through the chest after uneventful bolus administration of intravenous contrast. Reconstructed CTA MIP acquisitions were also performed. INDICATION: Chest pressure and pain. COMPARISON: 04/07/2013. FINDINGS: There is no intraluminal pulmonary arterial filling defect, there were no findings of pulmonary arterial embolus. There is a new mass posteroinferior to the level of the veronica, believed to have its epicenter within the right lower lobe and presents as a parenchymal lung mass. This shows irregular borders and indistinct margins and is partially spiculated with a heterogeneous density. It measures 2.0 x 1.7 cm and is suspicious for neoplasm. This lesion is too central to be biopsied percutaneously. Its caudal aspect extends posterior to the right mainstem bronchus which was not distorted. There is abnormal soft tissue in the right pulmonary hilum, suspect for right hilar adenopathy. Tissue measures maximal transverse thickness of 2 cm. Smaller posteroinferior right pulmonary hilar node has a transverse diameter of 9 mm. There is partial atelectasis of the posterior medial right middle lobe. There is heterogeneous air trapping. There is scarring and postoperative distortion in the left upper lobe reflecting a substantial improvement from the prior. Features of centrilobular emphysema are noted. The atherosclerotic aorta is nonaneurysmal. Visualized supraclavicular fossae, unremarkable. There is no abnormal tissue in the axillae. There are old deformities to the sternum and manubrium with postoperative changes of sternotomy. No acute soft tissue or osseous chest wall pathology. Visualized upper abdomen reveals nonobstructive left renal atrophy as a chronic finding. There is no adrenal mass and the partially visualized liver appeared unremarkable. IMPRESSION: New irregular soft tissue mass on the right posteroinferior to the level of the veronica believed to be a lung mass within the right lower lobe, suspect for neoplasm. Consider metabolic PET imaging. Right hilar lymph nodes are present, as well, suspicious. Severe COPD noted with improvements in postoperative distortion in the left upper lobe. Partial atelectasis of the right middle lobe as a chronic finding. No effusion or pneumothorax. Chronic nonobstructive left renal atrophy. No acute upper abdominal abnormality. Negative for PE or acute aortic pathology. Dictated on workstation # [id number] Dict: 09/04/16 1649 Trans: 09/04/16 1719 [facility] [id number] Interpreted by: FAVIOLA SMITH Departure Impression Impression: Primary Impression: Acute exacerbation of chronic obstructive pulmonary disease (COPD) Additional Impressions: Chest pain Qualified Codes: R07.9 - Chest pain, unspecified Mass of right lung Disposition: ADMITTED INPATIENT Condition: Improved Decision to Admit Reason: Admit from ER (General) Decision to Admit/Date: September 04, 2016 Time/Decision to Admit Time: 14:30 Departure-Patient Inst. Referrals: WEST MCCAULEY DO (PCP/Family) Primary Care Physician Scripts Prednisone (Prednisone) 10 Mg Tab.ds.pk 10 MG PO DAILY, #42 PKG Take 6 tabs(60mg)daily,decrease by 1 tab(10mg)every other day. Prov: ALTAGRACIA DUBOIS DO 09/06/16 WILNER ZUNIGA MD September 04, 2016 14:54
[2016-09-04 15:21] LABS: BASOPHILS % (AUTO) 0 % (0-10); EOSINOPHILS # (AUTO) 0.3 10^3/uL (0.0-0.3); EOSINOPHILS % (AUTO) 4 % (0-10); LYMPHOCYTES # (AUTO) 1.3 X 10^3 (1.0-4.0); LYMPHOCYTES % (AUTO) 17 % (12-44); MEAN CORPUSCULAR HEMOGLOBIN 29 PG (25-34); MEAN CORPUSCULAR HGB CONC 30 G/DL (32-36); MEAN CORPUSCULAR VOLUME 100 FL (80-99); MEAN PLATELET VOLUME 9.9 FL (7.4-10.4); MONOCYTES # (AUTO) 0.6 X 10^3 (0.0-1.0); MONOCYTES % (AUTO) 9 % (0-12); NEUTROPHILS # (AUTO) 5.3 X 10^3 (1.8-7.8); NEUTROPHILS % (AUTO) 70 % (42-75); PLATELET COUNT 354 10^3/uL (130-400); RED BLOOD COUNT 3.68 10^6/uL (4.35-5.85); RED CELL DISTRIBUTION WIDTH 15.1 % (10.0-14.5); WHITE BLOOD COUNT 7.6 10^3/uL (4.3-11.0)
--- NOTE | 2016-09-04 15:22 | Diagnostic Imaging Report ---
Portable upright radiograph of the chest. INDICATION: Shortness of breath. FINDINGS: The lungs are hyperinflated. Minimal bibasilar opacities seen likely related to atelectasis. The heart size is at the upper limits of normal. There is slight prominence of interstitial markings perhaps increased minimally from 08/02/2016, could relate to minimal vascular congestion. No significant effusion or pneumothorax. Surgical clips in the mediastinum, sternotomy wires and the sutures projecting over the left chest seen. IMPRESSION: COPD. Bibasilar minimal atelectasis. Question of minimal vascular congestion. Dictated by: Dictated on workstation # [id number]
[2016-09-04 15:32] LABS: PROTHROMBIN TIME PATIENT 12.9 SEC (12.2-14.7)
[2016-09-04 15:39] LABS: ALANINE AMINOTRANSFERASE 25 U/L (0-55); ALBUMIN 3.7 G/DL (3.2-4.5); ANION GAP 8 MMOL/L (5-14); ASPARTATE AMINO TRANSFERASE 23 U/L (5-34); BILIRUBIN,TOTAL 0.4 MG/DL (0.1-1.0); BLOOD UREA NITROGEN 11 MG/DL (7-18); BUN/CREATININE RATIO 11; CALCIUM 9.5 MG/DL (8.5-10.1); CARBON DIOXIDE 38 MMOL/L (21-32); CHLORIDE 96 MMOL/L (98-107); CREATININE SERUM 0.96 MG/DL (0.60-1.30); GFR ESTIMATED 57; GLUCOSE 117 MG/DL (70-105); MAGNESIUM 1.8 MG/DL (1.8-2.4); POTASSIUM 4.2 MMOL/L (3.6-5.0); SODIUM 142 MMOL/L (135-145); TOTAL PROTEIN 6.9 G/DL (6.4-8.2)
[2016-09-04 15:45] LABS: MYOGLOBIN SERUM 62.6 NG/ML (10.0-92.0)
[2016-09-04] MEDS ORDERED: NS 100 ML (IVPB) BAG IV ONE (16:30)
[2016-09-04] MEDS ORDERED: IOHEXOL 350 MG/ML 150 ML (OMNIPAQUE 350) VIAL IV ONE (16:30)
--- NOTE | 2016-09-04 17:19 | Diagnostic Imaging Report ---
PROCEDURE: CT angiography of the chest with contrast. TECHNIQUE: Multiple contiguous axial images were obtained through the chest after uneventful bolus administration of intravenous contrast. Reconstructed CTA MIP acquisitions were also performed. INDICATION: Chest pressure and pain. COMPARISON: 04/07/2013. FINDINGS: There is no intraluminal pulmonary arterial filling defect, there were no findings of pulmonary arterial embolus. There is a new mass posteroinferior to the level of the veronica, believed to have its epicenter within the right lower lobe and presents as a parenchymal lung mass. This shows irregular borders and indistinct margins and is partially spiculated with a heterogeneous density. It measures 2.0 x 1.7 cm and is suspicious for neoplasm. This lesion is too central to be biopsied percutaneously. Its caudal aspect extends posterior to the right mainstem bronchus which was not distorted. There is abnormal soft tissue in the right pulmonary hilum, suspect for right hilar adenopathy. Tissue measures maximal transverse thickness of 2 cm. Smaller posteroinferior right pulmonary hilar node has a transverse diameter of 9 mm. There is partial atelectasis of the posterior medial right middle lobe. There is heterogeneous air trapping. There is scarring and postoperative distortion in the left upper lobe reflecting a substantial improvement from the prior. Features of centrilobular emphysema are noted. The atherosclerotic aorta is nonaneurysmal. Visualized supraclavicular fossae, unremarkable. There is no abnormal tissue in the axillae. There are old deformities to the sternum and manubrium with postoperative changes of sternotomy. No acute soft tissue or osseous chest wall pathology. Visualized upper abdomen reveals nonobstructive left renal atrophy as a chronic finding. There is no adrenal mass and the partially visualized liver appeared unremarkable. IMPRESSION: New irregular soft tissue mass on the right posteroinferior to the level of the veronica believed to be a lung mass within the right lower lobe, suspect for neoplasm. Consider metabolic PET imaging. Right hilar lymph nodes are present, as well, suspicious. Severe COPD noted with improvements in postoperative distortion in the left upper lobe. Partial atelectasis of the right middle lobe as a chronic finding. No effusion or pneumothorax. Chronic nonobstructive left renal atrophy. No acute upper abdominal abnormality. Negative for PE or acute aortic pathology. Dictated by: Dictated on workstation # [id number]
[2016-09-04] MEDS ORDERED: FUROSEMIDE 40 MG/4 ML INJ (LASIX) IV NR (19:05)
[2016-09-04] MEDS ORDERED: RT-ALBUTEROL SULF 2.5 MG/3 ML PRE-MIX VIAL IH PRN (19:15)
[2016-09-04] MEDS ORDERED: CATHETER FLUSH 10 ML SYR IV PRN (19:15)
[2016-09-04] MEDS: methylPREDNISolone 40 MG/ML (Solu-MEDROL) VIAL IV SCH (20:24)
[2016-09-04 20:59] VITALS: BP 100/56
[2016-09-04] MEDS ORDERED: NITROGLYCERIN SUBLINGUAL 0.4 MG TAB (NITROSTAT) SL PRN (21:30)
[2016-09-04] MEDS ORDERED: meTOprolol TARTRATE 50 MG (LOPRESSOR) TAB ONE (22:23)
[2016-09-04] MEDS ORDERED: ATORVASTATIN 20 MG (LIPITOR) TABLET ONE (22:23)
[2016-09-04] MEDS: CATHETER FLUSH 10 ML SYR IV SCH (22:33)
[2016-09-04] MEDS: ATORVASTATIN 40 MG (LIPITOR) TABLET PO SCH (22:34)
[2016-09-04] MEDS: meTOprolol TARTRATE 50 MG (LOPRESSOR) TAB PO SCH (22:35)
[2016-09-04] MEDS: RT-ALBUTEROL/IPRATROPIUM 3 ML (DUONEB) VIAL IH SCH (22:44)
[2016-09-05] VITALS (7 sets, daily range): BP systolic 106–134; BP diastolic 53–72
[2016-09-05] MEDS: RT-ALBUTEROL/IPRATROPIUM 3 ML (DUONEB) VIAL IH SCH ×6 (01:35→22:03)
[2016-09-05] MEDS: methylPREDNISolone 40 MG/ML (Solu-MEDROL) VIAL IV SCH ×4 (03:12→20:46)
[2016-09-05] MEDS: CATHETER FLUSH 10 ML SYR IV SCH ×3 (06:04→22:19)
[2016-09-05 07:02] LABS: CHOLESTEROL 141 MG/DL (< 200); DIRECT LDL 60 MG/DL (1-129); TRIGLYCERIDES 42 MG/DL (<150); VLDL CHOLESTEROL 8 MG/DL (5-40)
--- NOTE | 2016-09-05 08:18 | History & Physicial ---
History of Present Illness History of Present Illness Reason for visit/HPI patient came to the office yesterday Patient treated outpatient without success Pulse ox 77 in office with 2 L of nasal oxygen. Patient sent out to the emergency . D-dimer elevated. CAT scan of chest done showing a mass. Previous surgeries bypass, balloon angioplasty 2 months ago. Stent left leg and right. Stent in coronary less than a year ago. Patient stopped smoking 4 years ago area Family history no history of cancer. Both sides of the family heart disease and vascular disease Date of Admission September 04, 2016 at 17:47 I consulted on this patient on 09/05/16 08:13 Attending Physician Sanju Mccauley DO Admitting Physician Sanju Mccauley DO Consult Allergies and Home Medications Allergies Coded Allergies: Penicillins (Verified Allergy, Severe, ANAPHYLAXIS, 09/04/16) hydrochlorothiazide (Verified Allergy, Unknown, 09/04/16) levofloxacin (Verified Allergy, Unknown, 09/04/16) penicillin G (Verified Allergy, Unknown, 09/04/16) Home Medications Acetaminophen with Codeine 1 Each Tablet, 1 TAB PO HS, (Reported) Albuterol Sulfate 2.5 Mg/3 Ml Vial.neb, 2.5 MG NEB 5XD PRN for SHORTNESS OF BREATH, (Reported) Albuterol Sulfate 90 Mcg Aer.pow.ba, 1-2 PUFF IH Q4H PRN for SHORTNESS OF BREATH , (Reported) Aspirin 81 Mg Tab.chew, 81 MG PO HS, (Reported) Atorvastatin Calcium 40 Mg Tablet, 40 MG PO HS, (Reported) Cetirizine HCl 10 Mg Tablet, 10 MG PO HS, (Reported) Clopidogrel Bisulfate 75 Mg Tablet, 75 MG PO DAILY, (Reported) Furosemide 20 Mg Tablet, 20 MG PO Q48H, (Reported) Glycopyrrolate/Formoterol Fum 10.7 Gm Hfa.aer.ad, 2 PUFF IH BID, (Reported) Levothyroxine Sodium 50 Mcg Tablet, 50 MCG PO HS, (Reported) Lisinopril 10 Mg Tablet, 10 MG PO DAILY, (Reported) Metoprolol Tartrate 50 Mg Tablet, 50 MG PO BID, (Reported) Multivits,Stress Formula 1 Each Tablet, 1 TAB PO DAILY, (Reported) Nitroglycerin 0.4 Mg Btl, 0.4 MG SL UD PRN for CHEST PAIN, (Reported) 1 TAB EVERY 5 MINUTES FOR 3 DOSES NEEDED FOR CHEST PAIN Pantoprazole Sodium 40 Mg Tablet.dr, 40 MG PO DAILY, (Reported) Promethazine HCl/Codeine 118 Ml Syrup, 10 ML PO TID PRN for COUGH, (Reported) Ubidecarenone 200 Mg Capsule, 200 MG PO DAILY, (Reported) Past Ycdzttb-Pxegoy-Tdyvyt Hx Patient Social History Marrital Status: Employed/Student: unemployed Alcohol Use: Denies Use Recreational Drug Use: No Smoking Status: Former Smoker Former smoker/When Quit: Jul 11, 2012 Type Used: Cigarettes Physical Abuse Screen: No Sexual Abuse: No Recent Foreign Travel: No Contact w/other who traveled: No Recent Hopitalizations: Yes (Jul FOR STENT; A FEW MONTHS BEFORE FOR PNA) Recent Infectious Disease Expo: No Immunizations Up To Date Tetanus Booster (TDap): Less than 5yrs Date of Pneumonia Vaccine: Feb 07, 2016 Date of Influenza Vaccine: Feb 07, 2016 Seasonal Allergies Seasonal Allergies: Yes Surgeries HX Surgeries: Yes (CARDIAC CATH) Surgeries: CABG, Vascular Surgery (lower extremity stents) Respiratory Hx Respiratory Disorders: Yes Respiratory Disorders: COPD Cardiovascular Hx Cardiovascular Disorders: Yes Cardiac Disorders: Coronary Artery Disease, Hypertension, Peripheral Vascular Neurological Hx Neurological Disorders: Yes (ANXIETY) Reproductive System Hx Reproductive Disorders: Yes (26 YRS. 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 Disorders: Denies Genitourinary Hx Genitourinary Disorders: No Gastrointestinal Hx Gastrointestinal Disorders: No Musculoskeletal Hx Musculoskeletal Disorders: Yes (MAYBE MILD ARTHRITIS) Endocrine Hx Endocrine Disorders: No HEENT HX ENT Disorders: Yes (CATARACT SURGETY BOTH EYES) HEENT Disorders: Cataract Loss of Vision: Denies Hearing Impairment: Denies Cancer Hx Cancer: No Psychosocial Hx Psychiatric Problems: No Integumentary HX Skin/Integumentary Disorder: No Blood Transfusions Adverse Reaction to a Blood Tr: No Family Medical History Family Hx: Chest pain 09 SISTER Congestive heart failure G-MA Family history: Cardiovascular disease 03 FATHER (68) 09 SISTER Family history: Hypertension 03 FATHER 09 SISTER G-MA Stroke Constitutional: weakness, other (1 of breath) EENTM: no symptoms reported Respiratory: cough, short of breath Cardiovascular: other (A. fib yesterday today appears sinus) Gastrointestinal: no symptoms reported Genitourinary: no symptoms reported Physical Exam Vital Signs Vital Sign - Last 12Hours 09/04/16 09/04/16 14:32 20:59 Temp 98.7 Pulse 79 Resp 26 B/P (MAP) 100/56 Pulse Ox 77 O2 Delivery Nasal Cannula O2 Flow Rate 2.00 Capillary Refill : Less Than 3 Seconds General Appearance: No Apparent Distress, Thin Eyes: Bilateral Eye Normal Inspection HEENT: Normal ENT Inspection Neck: Full Range of Motion, Normal Inspection Respiratory: Chest Non Tender, Decreased Breath Sounds Cardiovascular: Regular Rate, Rhythm Gastrointestinal: Non Tender, Soft Assessment/Plan Assessment and Plan COPD with acute exacerbation. Right chest mass. Coronary artery disease. Coronary stent less than a year ago Problems: Clinical Quality Measures DVT/VTE Risk/Contraindication: Risk Factor Score Per Nursin RFS Level Per Nursing on Admit: 4+=Very High SANJU MCCAULEY DO September 05, 2016 08:18
[2016-09-05] MEDS ORDERED: ACET1TAB45 PO (08:35)
[2016-09-05] MEDS ORDERED: BUDE10.2 IH (08:35)
[2016-09-05] MEDS ORDERED: TIOT4MIS2 IH (08:35)
[2016-09-05] MEDS ORDERED: RT-ALBUINH IH (08:35)
--- NOTE | 2016-09-05 08:38 | Pulmonary Consultation ---
History of Present Illness History of Present Illness Date of Consultation 09/05/16 08:33 Date of Admission History of Present Illness 71yo with hx of COPD presented to ED from Dr. Bhandari's office secondary to worsening SOB over the last month. pt was found to be hypoxic with Sp02 77% on 2 liters of oxygen. She has been using nebulizer 5 x per day without any benefit. Up ED admission pt was found to have lung mass per CT scan. I am consulted for pulmonary management. Allergies and Home Medications Allergies Coded Allergies: Penicillins (Verified Allergy, Severe, ANAPHYLAXIS, 09/04/16) hydrochlorothiazide (Verified Allergy, Unknown, 09/04/16) levofloxacin (Verified Allergy, Unknown, 09/04/16) penicillin G (Verified Allergy, Unknown, 09/04/16) Home Medications Acetaminophen with Codeine 1 Each Tablet, 1 TAB PO HS, (Reported) Albuterol Sulfate 2.5 Mg/3 Ml Vial.neb, 2.5 MG NEB 5XD PRN for SHORTNESS OF BREATH, (Reported) Albuterol Sulfate 1 Puff Puff, 2 PUFF IH Q4H PRN for SHORTNESS OF BREATH, ( Reported) 1 PUFF = 90 MCG Aspirin 81 Mg Tab.chew, 81 MG PO HS, (Reported) Atorvastatin Calcium 40 Mg Tablet, 40 MG PO HS, (Reported) Budesonide/Formoterol Fumarate 10.2 Gm Hfa.aer.ad, 2 PUFF IH BID, (Reported) Cetirizine HCl 10 Mg Tablet, 10 MG PO HS, (Reported) Clopidogrel Bisulfate 75 Mg Tablet, 75 MG PO DAILY, (Reported) Furosemide 20 Mg Tablet, 20 MG PO DAILY, (Reported) Levothyroxine Sodium 50 Mcg Tablet, 50 MCG PO HS, (Reported) Lisinopril 10 Mg Tablet, 10 MG PO DAILY, (Reported) Metoprolol Tartrate 50 Mg Tablet, 50 MG PO BID, (Reported) Multivits,Stress Formula 1 Each Tablet, 1 TAB PO DAILY, (Reported) Nitroglycerin 0.4 Mg Btl, 0.4 MG SL UD PRN for CHEST PAIN, (Reported) 1 TAB EVERY 5 MINUTES FOR 3 DOSES NEEDED FOR CHEST PAIN Pantoprazole Sodium 40 Mg Tablet.dr, 40 MG PO DAILY, (Reported) Promethazine HCl/Codeine 118 Ml Syrup, 10 ML PO TID PRN for COUGH, (Reported) Tiotropium [place] 4 Gm Mist.inhal, 2 PUFF IH DAILY, (Reported) Ubidecarenone 200 Mg Capsule, 200 MG PO HS, (Reported) Past Cqfomow-Pdmiry-Fnuunm Hx Patient Social History Alcohol Use: Denies Use Recreational Drug Use: No Smoking Status: Former Smoker Type Used: Cigarettes Former Smoker/When Quit: Jul 11, 2012 Recent Foreign Travel: No Contact w/Someone Who Travel: No Recent Infectious Disease Expo: No Recent Hopitalizations: Yes (Jul FOR STENT; A FEW MONTHS BEFORE FOR PNA) Physical Abuse Screen: No Sexual Abuse: No Immunizations Up To Date Tetanus Booster (TDap): Less than 5yrs PED Vaccines UTD: Yes Date of Pneumonia Vaccine: Feb 07, 2016 Date of Influenza Vaccine: Feb 07, 2016 Seasonal Allergies Seasonal Allergies: Yes Surgeries HX Surgeries: Yes (CARDIAC CATH) Surgeries: CABG, Vascular Surgery (lower extremity stents) Respiratory Hx Respiratory Disorders: Yes Respiratory Disorders: COPD Cardiovascular Hx Cardiac Disorders: Yes Cardiac Disorders: Coronary Artery Disease, Hypertension, Peripheral Vascular Neurological Hx Neurological Disorders: Yes (ANXIETY) Reproductive System Hx Reproductive Disorders: Yes (26 YRS. 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 Disorders: Denies Genitourinary Hx Genitourinary Disorders: No Gastrointestinal Hx Gastrointestinal Disorders: No Musculoskeletal Hx Musculoskeletal Disorders: Yes (MAYBE MILD ARTHRITIS) Endocrine Hx Endocrine Disorders: No HEENT HX ENT Disorders: Yes (CATARACT SURGETY BOTH EYES) HEENT Disorders: Cataract Loss of Vision: Denies Hearing Impairment: Denies Cancer Hx Cancer: No Psychosocial Hx Psychiatric Problems: No Integumentary HX Skin/Integumentary Disorder: No Blood Transfusions Adverse Reaction to a Blood Tr: No Family Medical History Family Medial History: Chest pain 09 SISTER Congestive heart failure G-MA Family history: Cardiovascular disease 03 FATHER (68) 09 SISTER Family history: Hypertension 03 FATHER 09 SISTER G-MA Stroke Exam Exam Vital Signs Date Time Temp Pulse Resp B/P (MAP) Pulse Ox O2 Delivery O2 Flow Rate FiO2 09/05/16 08:00 96.2 86 20 127/72 96 3.50 09/05/16 07:12 94 3.50 09/05/16 03:47 98.4 79 20 130/67 96 3.50 09/05/16 01:35 96 3.50 09/05/16 00:49 70 09/05/16 00:05 98.4 78 20 110/53 98 3.50 09/04/16 22:44 95 3.50 09/04/16 21:46 96 3.50 09/04/16 21:09 117 09/04/16 21:00 3.50 09/04/16 20:59 98.2 107 18 100/56 96 3.50 09/04/16 20:30 97 3.50 09/04/16 18:35 98.7 75 26 97 4.00 09/04/16 16:57 4.00 09/04/16 14:38 93 Nasal Cannula 4.00 09/04/16 14:36 93 4.00 09/04/16 14:32 98.7 79 26 77 Nasal Cannula 2.00 I & O 09/05/16 07:00 Intake Total 480 ml Output Total 1200 ml Balance -720 ml General Appearance: No Apparent Distress, Thin HEENT: Normal ENT Inspection Neck: Full Range of Motion, Normal Inspection Respiratory: Chest Non Tender, Decreased Breath Sounds Cardiovascular: Regular Rate, Rhythm Capillary Refill: Less Than 3 Seconds Extremity: Normal Inspection, Other (subtle tenderness in the calves equal bilaterally. No erythema or heat. 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 COPDAE -Solumedrol, SVNs CAD 254 Clinical Quality Measures DVT/VTE Risk/Contraindication: Risk Factor Score Per Nursin RFS Level Per Nursing on Admit: 4+=Very High ALTAGRACIA WALLACE DO September 05, 2016 08:38
[2016-09-05] MEDS ORDERED: NON-FORMULARY MEDICATION 1 EA EA (Ubidecarenone (Co Q-10) 200 MG) PO SCH (09:00)
--- NOTE | 2016-09-05 09:15 | Consultation-Cardiology ---
HPI-Cardiology Cardiology Consultation: Date of Consultation 09/05/16 Date of Admission 09-04-16 Attending Physician Sanju Morris DO Admitting Physician Sanju Morris DO Consulting Physician NORMA PAL MD HPI: Chief Complaint: SZYMANSKI Ms. White is a 71 year old female admitted to 409 from the ED with increasing dyspnea over the course of the last few days. She reports occ productive cough of thick yellow to green sputum. No c/o fever or chills. She reports chest heaviness, but feels it is associated with "running out of air". No c/o chest pain, palpitations, syncope or near syncope. She states she has increased the oxygen flow at home. She has also increased her SVN use. She state she does feel better today. She continues to have some shortness of breath, but feels it has improved. No c/o chest pressure at this time. No c/o LE edema. Review of Systems-Cardiology Review of Systems Constitutional: As described under HPI Eyes: No blurred vision, No drainage, No pain, No vision change Ears/Nose/Throat: No ear discharge, No ear pain, No nasal drainage, No ulcerations Respiratory: As described under HPI Cardiovascular: As described under HPI Gastrointestinal: No constipation, No diarrhea, No nausea, No vomiting, No stool coloration changes Genitourinary: No dysuria, No discharge, No frequency, No hematuria, No urgency : No Skin: No rash, No skin related problems, No ulcerations Psychiatric/Neurological: No anxiety, No depression, No focal weakness, No seizure, No syncope Hematologic: No bleeding abnormalities NEA-Gaogfb-Zgsovj Hx Patient Social History Marrital Status: Employed/Student: unemployed Alcohol Use: Denies Use Recreational Drug Use: No Smoking Status: Former Smoker Former smoker/When Quit: Jul 11, 2012 Type Used: Cigarettes Recent Foreign Travel: No Recent Infectious Disease Expo: No Hospitalization with Isolation: Denies Physical Abuse Screen: No Sexual Abuse: No Immunizations Up To Date Tetanus Booster (TDap): Less than 5yrs Date of Pneumonia Vaccine: Feb 07, 2016 Date of Influenza Vaccine: Feb 07, 2016 Past Medical History PMH As described under Assessment. Family Medical History Family Medical History: She reports her father had CAD and HTN. She also reports a sister with CAD and HTN. Family History: 03 FATHER Family history: Cardiovascular disease (68) Family history: Hypertension 09 SISTER Chest pain Family history: Cardiovascular disease Family history: Hypertension G-MA Congestive heart failure Family history: Hypertension Relation not specified for: Stroke Allergies and Home Medications Allergies Coded Allergies: Penicillins (Verified Allergy, Severe, ANAPHYLAXIS, 09/04/16) hydrochlorothiazide (Verified Allergy, Unknown, 09/04/16) levofloxacin (Verified Allergy, Unknown, 09/04/16) penicillin G (Verified Allergy, Unknown, 09/04/16) Home Medications Acetaminophen with Codeine 1 Each Tablet, 1 TAB PO HS, (Reported) Albuterol Sulfate 2.5 Mg/3 Ml Vial.neb, 2.5 MG NEB 5XD PRN for SHORTNESS OF BREATH, (Reported) Albuterol Sulfate 1 Puff Puff, 2 PUFF IH Q4H PRN for SHORTNESS OF BREATH, ( Reported) 1 PUFF = 90 MCG Aspirin 81 Mg Tab.chew, 81 MG PO HS, (Reported) Atorvastatin Calcium 40 Mg Tablet, 40 MG PO HS, (Reported) Budesonide/Formoterol Fumarate 10.2 Gm Hfa.aer.ad, 2 PUFF IH BID, (Reported) Cetirizine HCl 10 Mg Tablet, 10 MG PO HS, (Reported) Clopidogrel Bisulfate 75 Mg Tablet, 75 MG PO DAILY, (Reported) Furosemide 20 Mg Tablet, 20 MG PO DAILY, (Reported) Levothyroxine Sodium 50 Mcg Tablet, 50 MCG PO HS, (Reported) Lisinopril 10 Mg Tablet, 10 MG PO DAILY, (Reported) Metoprolol Tartrate 50 Mg Tablet, 50 MG PO BID, (Reported) Multivits,Stress Formula 1 Each Tablet, 1 TAB PO DAILY, (Reported) Nitroglycerin 0.4 Mg Btl, 0.4 MG SL UD PRN for CHEST PAIN, (Reported) 1 TAB EVERY 5 MINUTES FOR 3 DOSES NEEDED FOR CHEST PAIN Pantoprazole Sodium 40 Mg Tablet.dr, 40 MG PO DAILY, (Reported) Promethazine HCl/Codeine 118 Ml Syrup, 10 ML PO TID PRN for COUGH, (Reported) Tiotropium [place] 4 Gm Mist.inhal, 2 PUFF IH DAILY, (Reported) Ubidecarenone 200 Mg Capsule, 200 MG PO HS, (Reported) Physical Exam-Cardiology Physical Exam Vital Signs/I&O Vital Sign - Last 12Hours 5/3009/05/16 09/05/16 09/05/16 22:44 00:05 00:49 01:35 Temp 98.4 Pulse 78 70 Resp 20 B/P (MAP) 110/53 Pulse Ox 95 98 96 O2 Flow Rate 3.50 3.50 3.50 09/05/16 09/05/16 09/05/16 09/05/16 03:47 07:12 07:16 08:00 Temp 98.4 96.2 Pulse 79 83 86 Resp 20 20 B/P (MAP) 130/67 127/72 Pulse Ox 96 94 96 O2 Flow Rate 3.50 3.50 3.50 Intake and Output 09/05/16 00:00 Intake Total 480 ml Output Total 300 ml Balance 180 ml Capillary Refill : Less Than 3 Seconds Constitutional: appears stated age, No apparent distress, well-developed, well- nourished HEENT: PERRL, No discharge, hearing is well preserved, oral hygience is good, No ulceration, No xanthelasmas are seen Neck: No carotid bruit, carotid pulses are 2 + bilaterally Respiratory: No accessory muscle use, No respiratory distress, chest expansion is symmetric, chest is bilaterally symmetric, rhonchi (scattered), other ( diminished breath sounds, R>L) Cardiovascular: regular rate-rhythm, No JVD, S1 and S2 Gastrointestinal: No tender, soft, audible bowel sounds, No spleenomegaly Rectal: deferred Extremities: No clubbing, No cyanosis, No significant edema Neurologic/Psychiatric: alert, oriented x 3, power is 5/5 both on sides Skin: No rash, No ulcerations Data Review Labs Laboratory Tests 09/04/16 15:13: White Blood Count 7.6, Red Blood Count 3.68L, Hemoglobin 10.8L, Hematocrit 37, Mean Corpuscular Volume 100H, Mean Corpuscular Hemoglobin 29, Mean Corpuscular Hemoglobin Concent 30L, Red Cell Distribution Width 15.1H, Platelet Count 354, Mean Platelet Volume 9.9, Neutrophils (%) (Auto) 70, Lymphocytes (%) (Auto) 17, Monocytes (%) (Auto) 9, Eosinophils (%) (Auto) 4, Basophils (%) (Auto) 0, Neutrophils # (Auto) 5.3, Lymphocytes # (Auto) 1.3, Monocytes # (Auto) 0.6, Eosinophils # (Auto) 0.3, Basophils # (Auto) 0.0, Prothrombin Time 12.9, INR Comment 1.0, Activated Partial Thromboplast Time 29, D-Dimer 0.70H, Sodium Level 142, Potassium Level 4.2, Chloride Level 96L, Carbon Dioxide Level 38H, Anion Gap 8, Blood Urea Nitrogen 11, Creatinine 0.96, Estimat Glomerular Filtration Rate 57, BUN/Creatinine Ratio 11, Glucose Level 117H, Calcium Level 9.5, Magnesium Level 1.8, Total Bilirubin 0.4, Aspartate Amino Transf (AST/SGOT ) 23, Alanine Aminotransferase (ALT/SGPT) 25, Alkaline Phosphatase 91, Myoglobin 62.6, Troponin I < 0.30, B-Type Natriuretic Peptide 397.6H, Total Protein 6.9, Albumin 3.7 09/04/16 22:22: Troponin I < 0.30 09/05/16 05:32: Triglycerides Level 42, Cholesterol Level 141, LDL Cholesterol Direct 60, VLDL Cholesterol 8, HDL Cholesterol 56 Radiology NAME: JUAN FRANCISCO WHITE MED REC#: [id number] PT STATUS: REG ER : 1945 PHYSICIAN: WILNER ZUNIGA MD ADMIT DATE: 09/04/16/ER Signed Date of Exam: 09/04/16 CHEST 1 VIEW, AP/PA ONLY Portable upright radiograph of the chest. INDICATION: Shortness of breath. FINDINGS: The lungs are hyperinflated. Minimal bibasilar opacities seen likely related to atelectasis. The heart size is at the upper limits of normal. There is slight prominence of interstitial markings perhaps increased minimally from 08/02/2016, could relate to minimal vascular congestion. No significant effusion or pneumothorax. Surgical clips in the mediastinum, sternotomy wires and the sutures projecting over the left chest seen. IMPRESSION: COPD. Bibasilar minimal atelectasis. Question of minimal vascular congestion. Dictated by: Dictated on workstation # [id number] Dict: 09/04/16 1506 Trans: 09/04/16 1528 Interpreted by: SERAFIN LAKHANI MD Electronically signed by: SERAFIN LAKHANI MD 09/04/16 1528 NAME: JUAN FRANCISCO WHITE MED REC#: [id number] PT STATUS: ADM IN : 1945 PHYSICIAN: WILNER ZUNIGA MD ADMIT DATE: 09/04/16 Signed Date of Exam: 09/04/16 CT ANGIO CHEST W PROCEDURE: CT angiography of the chest with contrast. TECHNIQUE: Multiple contiguous axial images were obtained through the chest after uneventful bolus administration of intravenous contrast. Reconstructed CTA MIP acquisitions were also performed. INDICATION: Chest pressure and pain. COMPARISON: 04/07/2013. FINDINGS: There is no intraluminal pulmonary arterial filling defect, there were no findings of pulmonary arterial embolus. There is a new mass posteroinferior to the level of the veronica, believed to have its epicenter within the right lower lobe and presents as a parenchymal lung mass. This shows irregular borders and indistinct margins and is partially spiculated with a heterogeneous density. It measures 2.0 x 1.7 cm and is suspicious for neoplasm. This lesion is too central to be biopsied percutaneously. Its caudal aspect extends posterior to the right mainstem bronchus which was not distorted. There is abnormal soft tissue in the right pulmonary hilum, suspect for right hilar adenopathy. Tissue measures maximal transverse thickness of 2 cm. Smaller posteroinferior right pulmonary hilar node has a transverse diameter of 9 mm. There is partial atelectasis of the posterior medial right middle lobe. There is heterogeneous air trapping. There is scarring and postoperative distortion in the left upper lobe reflecting a substantial improvement from the prior. Features of centrilobular emphysema are noted. The atherosclerotic aorta is nonaneurysmal. Visualized supraclavicular fossae, unremarkable. There is no abnormal tissue in the axillae. There are old deformities to the sternum and manubrium with postoperative changes of sternotomy. No acute soft tissue or osseous chest wall pathology. Visualized upper abdomen reveals nonobstructive left renal atrophy as a chronic finding. There is no adrenal mass and the partially visualized liver appeared unremarkable. IMPRESSION: New irregular soft tissue mass on the right posteroinferior to the level of the veronica believed to be a lung mass within the right lower lobe, suspect for neoplasm. Consider metabolic PET imaging. Right hilar lymph nodes are present, as well, suspicious. Severe COPD noted with improvements in postoperative distortion in the left upper lobe. Partial atelectasis of the right middle lobe as a chronic finding. No effusion or pneumothorax. Chronic nonobstructive left renal atrophy. No acute upper abdominal abnormality. Negative for PE or acute aortic pathology. Dictated by: Dictated on workstation # [id number] Dict: 09/04/16 1649 Trans: 09/05/16 0806 Interpreted by: FAVIOLA SMITH Electronically signed by: FAVIOLA SMITH 09/05/16 0806 ECG Impression ECG Initial ECG Rhythm: Normal Sinus (unchanged from EKG of April 2016) A/P-Cardiology Assessment/Admission Diagnosis New irregular soft tissue mass on the right posteroinferior to the level of the veronica believed to be a lung mass within the right lower lobe, suspect for neoplasm. Consider metabolic PET imaging. Right hilar lymph nodes are present, as well, suspicious. Per CT of the chest on 09-04-16 Exertional dyspnea CAD. S/p CABG Feb [address] Guzman in [place], [place]. She had LEMUS to LAD, SVG to PDA, and sequential SVG to diagonal and OM. Last cardiac cath was on 07/12/15 and it showed multivessel CAD with patent SVG to distal RCA, patent LEMUS to distal LAD, and a sequential SVG with 50-60% mid-graft stenosis that was patent to first diag but occluded to OM. She underwent successful balloon angioplasty of the OM to which the graft was occluded. LVEF 60% on cath 07/12/15 with mild elevation of LVEDP Echocardiogram from January 03, 2015 showed LVEF 60%. Last echo of 04/19/[address] Funk showed LVEF 55-60%, mod diastolic dysfunction of LV, severe pulm htn with RVSP approx 72 mmHg PAD. 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 Pt states pathology came back as non-malignant (COPD) H/o intermittent pneumonia Tobacco use quit in early 2012 Hypertension COPD with associated pulm hypertension Hyperlipidemia, controlled Hypothyroidism being treated with thyroid replacement therapy Carotid u/s from July 2014 showed minimal bilat carotid arterial disease without evidence of hemodynamic significance Mild hyperglycemia, suggestive of borderline DM II, on blood work of 07/12/15 Discussion and Recomendations Complex managment issue. Increased exertional dyspnea with findings of a new soft tissue mass with the RLL which is suspicious for neoplasm. Dr. Pal has spoken with Dr. Dubois at length this morning. Pulmonology is advising bronchoscopy to be done next Saturday. The issue is that of anti-platelet tx. We feel from a cardiac stand point it is reasonable to hold ASA for 7 days perioperatively as advised by pulmonology. We feel it is reasonable to hold Plavix for 5 days perioperatively as advised for pulmonology prior to bronchoscopy next week. We do advise ASA be resumed immediately following bronchoscopy d/t h/o CAD and PAD with peripheral stenting last carried out in June 2016. We advise continuation of BB, DAPHNE (-) and diuretic. Monitor lab closely. Management of COPD per pulmonology services. Further recommendations will be based on her hospital course. We would like to thank Dr. Morris for this consult. This consult is being scribed by Ernesto Bernstein APRN on behalf of Dr. Pal after discussion regarding plan of care. Clinical Quality Measures DVT/VTE Risk/Contraindication: Risk Factor Score Per Nursin RFS Level Per Nursing on Admit: 4+=Very High Physician Assessment Physician Assessment Lungs: fair air entry, prolonged exp phase Cor: reg A&R * As documented in our note above * Complex management due to multiple CV comorbidities * I had a detailed discussion with Dr Dubois of the Pul svce over the phone, regarding her case. He is planning bronchoscopy and biopsy. We recommend that antiplatelet therapy be held for as few days as possible perioperatively * I had a detailed discussion with Ms White and her sons today LEONA BERNSTEIN September 05, 2016 09:15 NORMA PAL MD FACP [facility] September 05, 2016 09:59
[2016-09-05] MEDS ORDERED: CLOPIDOGREL 75 MG (PLAVIX) TABLET PO NR (09:55)
[2016-09-05] MEDS: meTOprolol TARTRATE 50 MG (LOPRESSOR) TAB PO SCH ×2 (10:29→20:46)
[2016-09-05] MEDS: PANTOPRAZOLE 40 MG (PROTONIX) TAB PO SCH (10:29)
[2016-09-05] MEDS: lisINopril 10 MG (PRINIVIL) TAB PO SCH (10:29)
[2016-09-05] MEDS: ENOXAPARIN 40 MG/0.4 ML (LOVENOX) SYR SC SCH (10:30)
[2016-09-05] MEDS ORDERED: PATIENT MAY USE OWN MEDS, ALL MC SCH (11:00)
[2016-09-05] MEDS: [UNRECOGNIZED DRUG - OTHER] PO SCH (11:03)
[2016-09-05] MEDS: COENZYME Q10 100 MG PO SCH (11:03)
--- NOTE | 2016-09-05 15:17 | Progress Note-Standard ---
Standard Progress Note Progress Notes/Assess & Plan Progress/Assessment & Plan for consult dictated on 09/05/2016 at 15:15 hours. 71-year-old female with the new central mass posterior and inferior to the veronica. Significant history of COPD and pulmonary hypertension. 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 Agree with bronchoscopy with EBUS and biopsy. If the pathology report shows a malignancy, I discussed the diagnosis, prognosis and treatment options with the patient and her family. If she needs a staging PET CT scan will schedule this on an outpatient basis. KRISTINE LOWERY September 05, 2016 15:17
[2016-09-05] MEDS: ATORVASTATIN 40 MG (LIPITOR) TABLET PO SCH (20:46)
[2016-09-05] MEDS ORDERED: NON-FORMULARY MEDICATION 1 EA EA (Cetirizine HCl 10 MG) PO SCH (21:00)
[2016-09-05] MEDS ORDERED: LEVOTHYROXINE 50 MCG (LEVOTHROID) TAB PO SCH (21:00)
[2016-09-05] MEDS ORDERED: LORATADINE (CLARITIN) 10 MG TAB PO SCH (21:00)
[2016-09-06] MEDS: RT-ALBUTEROL/IPRATROPIUM 3 ML (DUONEB) VIAL IH SCH ×3 (02:05→11:32)
[2016-09-06] MEDS: methylPREDNISolone 40 MG/ML (Solu-MEDROL) VIAL IV SCH ×2 (02:24→08:47)
[2016-09-06 03:40] VITALS: BP 123/65
[2016-09-06] MEDS: CATHETER FLUSH 10 ML SYR IV SCH ×2 (06:01→14:02)
[2016-09-06 06:08] LABS: BASOPHILS % (AUTO) 0 % (0-10); EOSINOPHILS % (AUTO) 0 % (0-10); LYMPHOCYTES # (AUTO) 0.5 X 10^3 (1.0-4.0); LYMPHOCYTES % (AUTO) 3 % (12-44); MEAN CORPUSCULAR HEMOGLOBIN 29 PG (25-34); MEAN CORPUSCULAR HGB CONC 30 G/DL (32-36); MEAN CORPUSCULAR VOLUME 98 FL (80-99); MEAN PLATELET VOLUME 10.7 FL (7.4-10.4); MONOCYTES # (AUTO) 0.4 X 10^3 (0.0-1.0); MONOCYTES % (AUTO) 3 % (0-12); NEUTROPHILS # (AUTO) 13.7 X 10^3 (1.8-7.8); NEUTROPHILS % (AUTO) 94 % (42-75); PLATELET COUNT 411 10^3/uL (130-400); RED BLOOD COUNT 3.61 10^6/uL (4.35-5.85); RED CELL DISTRIBUTION WIDTH 15.6 % (10.0-14.5); WHITE BLOOD COUNT 14.6 10^3/uL (4.3-11.0)
[2016-09-06 06:20] LABS: ALBUMIN 3.8 G/DL (3.2-4.5); BILIRUBIN,TOTAL 0.3 MG/DL (0.1-1.0); CALCIUM 9.7 MG/DL (8.5-10.1); CREATININE SERUM 0.94 MG/DL (0.60-1.30); POTASSIUM 4.1 MMOL/L (3.6-5.0); TOTAL PROTEIN 6.9 G/DL (6.4-8.2)
--- NOTE | 2016-09-06 06:51 | CONSULTATION REPORT ---
DATE OF SERVICE: 09/05/2016 IMPRESSION: 1. A 71-year-old female with chronic obstructive pulmonary disease, coronary artery disease and pulmonary hypertension, admitted with increasing shortness of breath. CT angiogram done at the time of admission showed soft tissue mass in the right lower lobe of lung, posterior and inferior to the veronica. 2. Agree with bronchoscopy with endobronchial ultrasound and biopsy as planned. The patient will need to stop the anticoagulation and do the procedure early next week. 3. Once the pathology report is available, I will see the patient and her family and discuss about the diagnosis, prognosis and further treatment options. 4. If the biopsy turns out to be malignant, she will need a PET CT scan for staging, which could be done on an outpatient basis. BRIEF HISTORY: The patient is a 71-year-old female who was admitted to the hospital with worsening shortness of breath. She has a history of COPD and pulmonary hypertension. At the time of admission a CT angiogram of the chest was done. This showed a new soft tissue mass in the right lower lobe close to the veronica. Hence, medical oncology and pulmonary consultations were obtained. PAST MEDICAL HISTORY: Significant for COPD, which is longstanding. She has coronary artery disease and underwent a 4-vessel coronary artery bypass graft in 2012. She required balloon angioplasty in 07/2015 to one of the grafts. She has peripheral arterial disease requiring stents in both lower extremities in 03/2016 and 06/2016. She is on Plavix and aspirin because of this. She underwent a wedge resection of left upper lobe of lung in 2012 at the time of CABG which showed no malignancy. She has history of hypertension, which is longstanding, and hyperlipidemia, both of which are controlled with medications. Also has history of hypothyroidism for which she is on replacement. She was diagnosed with pulmonary hypertension also. SOCIAL HISTORY: The patient is and lives alone in [place], [place]. She had 2 sons, both of whom live close by and one of her sons is planning to move next door to her. She gives a history of smoking for approximately 60 years averaging more than a pack a day. She quit smoking in 2012. 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 She denied any alcohol or recreational drug use. FAMILY HISTORY: Unremarkable with no malignancies in the family that the patient knows of. There is history of hypertension and coronary artery disease in her parents. PHYSICAL EXAMINATION: GENERAL: An elderly female, thin appearing, awake and oriented, in mild to moderate respiratory distress. HEENT: Normocephalic. Extraocular muscles are intact, conjunctiva pink. Oral mucosa moist. NECK: Supple with no JVD. No cervical, supraclavicular or axillary lymphadenopathy palpable. CHEST: Symmetrical. Lungs with significantly diminished breath sounds bilaterally without wheezes or rales. CARDIOVASCULAR: Regular in rate and rhythm with occasional missed beats. No murmurs or gallops were heard. ABDOMEN: Soft, nontender with no hepatosplenomegaly or other masses palpable. EXTREMITIES: No edema. Distal pulses were palpable. LABORATORY: CBC done on 09/04/2016 showed WBC 7.6, hemoglobin 10.8, platelet count 354,000 with normal automated differential count. MCV was 100. Chemistry panel showed normal electrolytes normal except CO2 level of 38, BUN was 11 and creatinine 0.96 with GFR 57 mL per minute. Liver function studies were within normal limits. Nonfasting glucose was 117. IMAGING: CT angiogram of the chest done at the Emergency Room on 09/04/2016 showed a 2.0 x 1.7 cm soft tissue mass posterior and inferior to the level of veronica within the right lower lobe which is suspicious for a neoplasm. There was also abnormal soft tissue in the right pulmonary hilum suspect for right hilar adenopathy. Severe COPD changes with improvement in postoperative distortion in the right upper lobe. Partial atelectasis of the right middle lobe which was felt a chronic finding. This was negative for PE. Thank you for allowing me to participate in this patient's care. I will follow the patient with you and make appropriate recommendations. Job ID: [id number] DocumentID: [id number] Dictated Date: 09/05/2016 15:14:30 Inward Toll Operator Date: 09/05/2016 19:19:32 Dictated By: KRISTINE LOWERY MD
--- NOTE | 2016-09-06 07:48 | Progress Note (SOAP) ---
Subjective Subjective/Events-last exam patient feeling better and breathing better. Patient spoke to cardiology, pulmonology and oncology. Patient understands what's going on Patient to have bronchoscopy Next Saturday. Objective Exam Vital Signs Date Time Temp Pulse Resp B/P (MAP) Pulse Ox O2 Delivery O2 Flow Rate FiO2 09/06/16 06:37 96 3.00 09/06/16 03:40 98.4 80 22 123/65 98 3.50 09/06/16 02:05 92 3.50 09/06/16 01:00 75 09/05/16 23:40 98.5 82 22 134/69 96 3.50 09/05/16 22:04 98 3.50 09/05/16 21:00 3.50 09/05/16 19:45 97.2 87 20 115/57 95 3.50 09/05/16 19:00 87 09/05/16 18:19 85 3.50 09/05/16 15:26 98.4 80 20 106/56 97 3.50 09/05/16 14:59 97 3.50 09/05/16 13:41 92 09/05/16 12:00 98.7 78 20 117/59 95 3.50 09/05/16 10:44 99 3.50 09/05/16 09:00 3.00 09/05/16 08:00 96.2 86 20 127/72 96 3.50 I & O 09/06/16 07:00 Intake Total 2300 ml Output Total 1700 ml Balance 600 ml Capillary Refill : Less Than 3 Seconds General Appearance: No Apparent Distress, Thin HEENT: Normal ENT Inspection Neck: Normal Inspection, Non Tender, Supple Respiratory: Chest Non Tender, No Accessory Muscle Use, No Respiratory Distress , Decreased Breath Sounds Cardiovascular: Regular Rate, Rhythm Gastrointestinal: non tender, soft Results Lab Laboratory Tests 09/06/16 05:16 Laboratory Tests 09/06/16 05:16: White Blood Count 14.6H, Red Blood Count 3.61L, Hemoglobin 10.6L, Hematocrit 35 , Mean Corpuscular Volume 98, Mean Corpuscular Hemoglobin 29, Mean Corpuscular Hemoglobin Concent 30L, Red Cell Distribution Width 15.6H, Platelet Count 411H, Mean Platelet Volume 10.7H, Neutrophils (%) (Auto) 94H, Lymphocytes (%) (Auto) 3L, Monocytes (%) (Auto) 3, Eosinophils (%) (Auto) 0, Basophils (%) (Auto) 0, Neutrophils # (Auto) 13.7H, Lymphocytes # (Auto) 0.5L, Monocytes # (Auto) 0.4, Eosinophils # (Auto) 0.0, Basophils # (Auto) 0.0, Sodium Level 136, Potassium Level 4.1, Chloride Level 92L, Carbon Dioxide Level 33H, Anion Gap 11, Blood Urea Nitrogen 14, Creatinine 0.94, Estimat Glomerular Filtration Rate 59, BUN/ Creatinine Ratio 15, Glucose Level 224H, Calcium Level 9.7, Total Bilirubin 0.3 , Aspartate Amino Transf (AST/SGOT) 23, Alanine Aminotransferase (ALT/SGPT) 26, Alkaline Phosphatase 89, Total Protein 6.9, Albumin 3.8 Assessment/Plan Assessment/Plan Assess & Plan/Chief Complaint COPD with acute exacerbation. Right chest lung mass. Coronary artery disease. Peripheral artery disease. Patient breathing better today. Patient have bronchoscopy next Saturday Clinical Quality Measures DVT/VTE Risk/Contraindication: Risk Factor Score Per Nursin RFS Level Per Nursing on Admit: 4+=Very High WEST MCCAULEY DO Sep 06, 2016 07:48
[2016-09-06 08:39] VITALS: BP 149/65
--- NOTE | 2016-09-06 08:39 | Pulmonary Progress Note ---
Subjective Subjective/Events-last exam Pt feels improved. Exam Exam Vital Signs Date Time Temp Pulse Resp B/P (MAP) Pulse Ox O2 Delivery O2 Flow Rate FiO2 09/06/16 06:37 96 3.00 09/06/16 03:40 98.4 80 22 123/65 98 3.50 09/06/16 02:05 92 3.50 09/06/16 01:00 75 09/05/16 23:40 98.5 82 22 134/69 96 3.50 09/05/16 22:04 98 3.50 09/05/16 21:00 3.50 09/05/16 19:45 97.2 87 20 115/57 95 3.50 09/05/16 19:00 87 09/05/16 18:19 85 3.50 09/05/16 15:26 98.4 80 20 106/56 97 3.50 09/05/16 14:59 97 3.50 09/05/16 13:41 92 09/05/16 12:00 98.7 78 20 117/59 95 3.50 09/05/16 10:44 99 3.50 09/05/16 09:00 3.00 I & O 09/06/16 07:00 Intake Total 2300 ml Output Total 1700 ml Balance 600 ml General Appearance: No Apparent Distress, Thin HEENT: Normal ENT Inspection Neck: Normal Inspection, Non Tender, Supple Respiratory: Chest Non Tender, No Accessory Muscle Use, No Respiratory Distress , Decreased Breath Sounds Cardiovascular: Regular Rate, Rhythm Capillary Refill: Less Than 3 Seconds Gastrointestinal: non tender, soft Extremity: Normal Inspection, Other (subtle tenderness in the calves equal bilaterally. No erythema or heat. 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, capacity planner II-XII Norm as Tested Skin: Normal Color, Warm/Dry Results Lab Laboratory Tests 09/04/16 15:13 09/06/16 05:16 Assessment/Plan Assessment/Plan right lung mass -pt needs bronchoscopy with EBUS -Scheduled for next Wed at 7AM -- pt does not have to stay inpatient for this procedure. COPDAE -Solumedrol, SVNs CAD 232 Clinical Quality Measures DVT/VTE Risk/Contraindication: Risk Factor Score Per Nursin RFS Level Per Nursing on Admit: 4+=Very High ALTAGRACIA WALLACE DO Sep 06, 2016 08:39
[2016-09-06] MEDS: PANTOPRAZOLE 40 MG (PROTONIX) TAB PO SCH (08:47)
[2016-09-06] MEDS: lisINopril 10 MG (PRINIVIL) TAB PO SCH (08:47)
[2016-09-06] MEDS: meTOprolol TARTRATE 50 MG (LOPRESSOR) TAB PO SCH (08:47)
[2016-09-06] MEDS: ENOXAPARIN 40 MG/0.4 ML (LOVENOX) SYR SC SCH ×3 (08:47→08:53)
[2016-09-06] MEDS: COENZYME Q10 100 MG PO SCH (08:51)
[2016-09-06] MEDS: [UNRECOGNIZED DRUG - OTHER] PO SCH (08:51)
[2016-09-06] MEDS ORDERED: CLOPIDOGREL 75 MG (PLAVIX) TABLET PO SCH (09:00)
--- NOTE | 2016-09-06 09:15 | Progress Note-Cardiology ---
Cardiology SOAP Progress Note Subjective: No new symptoms Has chronic exertional shortness of breath No cp or palp or syncope Objective: I&O/Vital Signs Vital Sign - Last 12Hours 09/05/16 09/05/16 09/06/16 09/06/16 22:04 23:40 01:00 02:05 Temp 98.5 Pulse 82 75 Resp 22 B/P (MAP) 134/69 Pulse Ox 98 96 92 O2 Flow Rate 3.50 3.50 3.50 09/06/16 09/06/16 09/06/16 03:40 06:37 08:39 Temp 98.4 96.6 Pulse 80 90 Resp 22 20 B/P (MAP) 123/65 149/65 Pulse Ox 98 96 95 O2 Flow Rate 3.50 3.00 3.50 Intake and Output 09/06/16 00:00 Intake Total 1960 ml Output Total 900 ml Balance 1060 ml Weight (Pounds): 120 Weight (Ounces): 7.0 Weight (Calculated Kilograms): [id number] Constitutional: appears stated age, No apparent distress, well-developed, well- nourished Respiratory: No accessory muscle use, No respiratory distress, chest expansion is symmetric, chest is bilaterally symmetric, rhonchi (scattered), other ( diminished breath sounds, R>L) Cardiovascular: regular rate-rhythm, No JVD, S1 and S2 Gastrointestional: No tender, soft, audible bowel sounds, No spleenomegaly Extremities: No clubbing, No cyanosis, No significant edema Neurologic/Psychiatric: alert, oriented x 3, power is 5/5 both on sides Skin: No rash, No ulcerations Results/Procedures: Labs Laboratory Tests 09/06/16 05:16: White Blood Count 14.6H, Red Blood Count 3.61L, Hemoglobin 10.6L, Hematocrit 35 , Mean Corpuscular Volume 98, Mean Corpuscular Hemoglobin 29, Mean Corpuscular Hemoglobin Concent 30L, Red Cell Distribution Width 15.6H, Platelet Count 411H, Mean Platelet Volume 10.7H, Neutrophils (%) (Auto) 94H, Lymphocytes (%) (Auto) 3L, Monocytes (%) (Auto) 3, Eosinophils (%) (Auto) 0, Basophils (%) (Auto) 0, Neutrophils # (Auto) 13.7H, Lymphocytes # (Auto) 0.5L, Monocytes # (Auto) 0.4, Eosinophils # (Auto) 0.0, Basophils # (Auto) 0.0, Sodium Level 136, Potassium Level 4.1, Chloride Level 92L, Carbon Dioxide Level 33H, Anion Gap 11, Blood Urea Nitrogen 14, Creatinine 0.94, Estimat Glomerular Filtration Rate 59, BUN/ Creatinine Ratio 15, Glucose Level 224H, Calcium Level 9.7, Total Bilirubin 0.3 , Aspartate Amino Transf (AST/SGOT) 23, Alanine Aminotransferase (ALT/SGPT) 26, Alkaline Phosphatase 89, Total Protein 6.9, Albumin 3.8 Laboratory Tests 09/04/16 15:13 09/06/16 05:16 A/P: Assessment: New irregular soft tissue mass on the right posteroinferior to the level of the veronica believed to be a lung mass within the right lower lobe, suspect for neoplasm. Consider metabolic PET imaging. Right hilar lymph nodes are present, as well, suspicious. Per CT of the chest on 09-04-16 Exertional dyspnea CAD. S/p CABG Feb [address] Guzman in [place], [place]. She had LEMUS to LAD, SVG to PDA, and sequential SVG to diagonal and OM. Last cardiac cath was on 07/12/15 and it showed multivessel CAD with patent SVG to distal RCA, patent LEMUS to distal LAD, and a sequential SVG with 50-60% mid-graft stenosis that was patent to first diag but occluded to OM. She underwent successful balloon angioplasty of the OM to which the graft was occluded. LVEF 60% on cath 07/12/15 with mild elevation of LVEDP Echocardiogram from January 03, 2015 showed LVEF 60%. Last echo of 04/19/[address] Fnuk showed LVEF 55-60%, mod diastolic dysfunction of LV, severe pulm htn with RVSP approx 72 mmHg PAD. 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 Pt states pathology came back as non-malignant (COPD) H/o intermittent pneumonia Tobacco use quit in early 2012 Hypertension COPD with associated pulm hypertension Hyperlipidemia, controlled Hypothyroidism being treated with thyroid replacement therapy Carotid u/s from July 2014 showed minimal bilat carotid arterial disease without evidence of hemodynamic significance Mild hyperglycemia, suggestive of borderline DM II, on blood work of 07/12/15 Plan: Complex managment issue. I discussed her case in detail with Dr Dubois of the Pulm [facility] Antiplatelet therapy is being managed as detailed in our note of 09/05/16. We have advised resumption of aspirin OLIVIA after biopsy. Plavix can be d/c'd because she has completed a year of Plavix post-cor stent Outpatient f/u is advise NORMA ALVARADO MD FACP FACC CCDS Sep 06, 2016 09:15
[2016-09-06 11:51] VITALS: BP 132/75
[2016-09-06] MEDS ORDERED: PRED10TA22 PO (12:27)
[2016-09-06 14:09] VITALS: BP 132/75
--- NOTE | 2016-09-07 09:40 | Physician Query ---
PQ-Intro New Diagnosis Admission/Discharge Admission Date: September 04, 2016 at 17:47 Discharge Date: Sep 06, 2016 at 14:09 The medical record reflects the following clinical scenario: History/Risk Factors: COPD exacerbation Smoking history Clinical Findings: O2 sats 77% on admission, Resp 26, Pulse 79, Tachypnea, Labored breathing and hypoxia. Worsening shortness of breath over the past month, but more acutely over the past 24 hours per ED record. Nebulizer treatments 5 times per day at home. Treatment: Increased oxygen in ED to 4LPM Duo neb treatment IV Solu Medrol Question: What condition best reflects the above clinical scenario? Please document below. 1. a. Acute Respiratory Failure with acute exacerbation of COPD. b. Chronic Respiratory Failure with acute exacerbation of COPD. c. Acute on Chronic Respiratory Failure with acute exacerbation of COPD. 2. Acute exacerbation of COPD without Acute or Chronic Respiratory Failure. 3. Other, with explanation of the clinical findings. 4. Clinically undetermined, no explanation for the clinical findings. PHYSICIAN RESPONSE What condition reflects above: 2 In responding to this query, please exercise your independent professional judgment. The purpose of this communication is to more accurately reflect the complexity of your patients condition. The fact that a question is asked does not imply that any particular answer is desired or expected. Thank you for your timely response to this clarification. Requestors name: Soraya Juarez [facility] Phone # ext [phone] or [phone] THIS PHYSICIAN QUERY FORM IS A PERMANENT PART OF THE MEDICAL RECORD SORAYA JUAREZ Sep 07, 2016 09:40 WEST MCCAULEY DO Sep 07, 2016 22:08
--- NOTE | 2016-09-10 07:20 | Discharge Summary ---
Diagnosis/Chief Complaint Date of Admission September 04, 2016 at 17:47 Date of Discharge Sep 06, 2016 at 14:09 Discharge Date: Sep 06, 2016 Admission Diagnosis Admission Diagnosis COPD with acute exacerbation. Right chest mass. Coronary artery disease. Coronary stent less than a year ago Discharge Diagnosis COPD with acute exacerbation. Right chest mass. Coronary artery disease. Coronary stents. Stents to legs peripheral arterial. Disease. Reason Hospital Visit patient came to the office yesterday Patient treated outpatient without success Pulse ox 77 in office with 2 L of nasal oxygen. Patient sent out to the emergency . D-dimer elevated. CAT scan of chest done showing a mass. Previous surgeries bypass, balloon angioplasty 2 months ago. Stent left leg and right. Stent in coronary less than a year ago. Patient stopped smoking 4 years ago area Family history no history of cancer. Both sides of the family heart disease and vascular disease Discharge Summary Procedures patient to have bronchoscopy on outpatient basis due to blood thinness Consultations pulmonology. Cardiology. Oncology. Discharge Physical Examination Allergies: Coded Allergies: Penicillins (Verified Allergy, Severe, ANAPHYLAXIS, 09/04/16) hydrochlorothiazide (Verified Allergy, Unknown, 09/04/16) levofloxacin (Verified Allergy, Unknown, 09/04/16) penicillin G (Verified Allergy, Unknown, 09/04/16) Vitals & I&Os Vital Signs Date Time Temp Pulse Resp B/P (MAP) Pulse Ox O2 Delivery O2 Flow Rate FiO2 09/06/16 14:09 88 22 132/75 91 3.00 09/06/16 11:51 97.7 09/04/16 14:38 Nasal Cannula Hospital Course patient in hospital did improve and breathing better Labs (last 24 hrs) Laboratory Tests 09/04/16 15:13: White Blood Count 7.6, Red Blood Count 3.68L, Hemoglobin 10.8L, Hematocrit 37, Mean Corpuscular Volume 100H, Mean Corpuscular Hemoglobin 29, Mean Corpuscular Hemoglobin Concent 30L, Red Cell Distribution Width 15.1H, Platelet Count 354, Mean Platelet Volume 9.9, Neutrophils (%) (Auto) 70, Lymphocytes (%) (Auto) 17, Monocytes (%) (Auto) 9, Eosinophils (%) (Auto) 4, Basophils (%) (Auto) 0, Neutrophils # (Auto) 5.3, Lymphocytes # (Auto) 1.3, Monocytes # (Auto) 0.6, Eosinophils # (Auto) 0.3, Basophils # (Auto) 0.0, Prothrombin Time 12.9, INR Comment 1.0, Activated Partial Thromboplast Time 29, D-Dimer 0.70H, Sodium Level 142, Potassium Level 4.2, Chloride Level 96L, Carbon Dioxide Level 38H, Anion Gap 8, Blood Urea Nitrogen 11, Creatinine 0.96, Estimat Glomerular Filtration Rate 57, BUN/Creatinine Ratio 11, Glucose Level 117H, Calcium Level 9.5, Magnesium Level 1.8, Total Bilirubin 0.4, Aspartate Amino Transf (AST/SGOT ) 23, Alanine Aminotransferase (ALT/SGPT) 25, Alkaline Phosphatase 91, Myoglobin 62.6, Troponin I < 0.30, B-Type Natriuretic Peptide 397.6H, Total Protein 6.9, Albumin 3.7 09/04/16 22:22: Troponin I < 0.30 09/05/16 05:32: Triglycerides Level 42, Cholesterol Level 141, LDL Cholesterol Direct 60, VLDL Cholesterol 8, HDL Cholesterol 56 09/06/16 05:16: White Blood Count 14.6H, Red Blood Count 3.61L, Hemoglobin 10.6L, Hematocrit 35 , Mean Corpuscular Volume 98, Mean Corpuscular Hemoglobin 29, Mean Corpuscular Hemoglobin Concent 30L, Red Cell Distribution Width 15.6H, Platelet Count 411H, Mean Platelet Volume 10.7H, Neutrophils (%) (Auto) 94H, Lymphocytes (%) (Auto) 3L, Monocytes (%) (Auto) 3, Eosinophils (%) (Auto) 0, Basophils (%) (Auto) 0, Neutrophils # (Auto) 13.7H, Lymphocytes # (Auto) 0.5L, Monocytes # (Auto) 0.4, Eosinophils # (Auto) 0.0, Basophils # (Auto) 0.0, Sodium Level 136, Potassium Level 4.1, Chloride Level 92L, Carbon Dioxide Level 33H, Anion Gap 11, Blood Urea Nitrogen 14, Creatinine 0.94, Estimat Glomerular Filtration Rate 59, BUN/ Creatinine Ratio 15, Glucose Level 224H, Calcium Level 9.7, Total Bilirubin 0.3 , Aspartate Amino Transf (AST/SGOT) 23, Alanine Aminotransferase (ALT/SGPT) 26, Alkaline Phosphatase 89, Total Protein 6.9, Albumin 3.8 Laboratory Tests 09/04/16 15:13 09/06/16 05:16 Pending Labs Laboratory Tests 09/04/16 15:13: White Blood Count 7.6, Red Blood Count 3.68, Hemoglobin 10.8, Hematocrit 37, Mean Corpuscular Volume 100, Mean Corpuscular Hemoglobin 29, Mean Corpuscular Hemoglobin Concent 30, Red Cell Distribution Width 15.1, Platelet Count 354, Mean Platelet Volume 9.9, Neutrophils (%) (Auto) 70, Lymphocytes (%) (Auto) 17, Monocytes (%) (Auto) 9, Eosinophils (%) (Auto) 4, Basophils (%) (Auto) 0, Neutrophils # (Auto) 5.3, Lymphocytes # (Auto) 1.3, Monocytes # (Auto) 0.6, Eosinophils # (Auto) 0.3, Basophils # (Auto) 0.0, Prothrombin Time 12.9, INR Comment 1.0, Activated Partial Thromboplast Time 29, D-Dimer 0.70, Sodium Level 142, Potassium Level 4.2, Chloride Level 96, Carbon Dioxide Level 38, Anion Gap 8, Blood Urea Nitrogen 11, Creatinine 0.96, Estimat Glomerular Filtration Rate 57, BUN/Creatinine Ratio 11, Glucose Level 117, Calcium Level 9.5, Magnesium Level 1.8, Total Bilirubin 0.4, Aspartate Amino Transf (AST/SGOT) 23, Alanine Aminotransferase (ALT/SGPT) 25, Alkaline Phosphatase 91, Myoglobin 62.6, Troponin I < 0.30, B-Type Natriuretic Peptide 397.6, Total Protein 6.9, Albumin 3.7 09/04/16 22:22: Troponin I < 0.30 09/05/16 05:32: Triglycerides Level 42, Cholesterol Level 141, LDL Cholesterol Direct 60, VLDL Cholesterol 8, HDL Cholesterol 56 09/06/16 05:16: White Blood Count 14.6, Red Blood Count 3.61, Hemoglobin 10.6, Hematocrit 35, Mean Corpuscular Volume 98, Mean Corpuscular Hemoglobin 29, Mean Corpuscular Hemoglobin Concent 30, Red Cell Distribution Width 15.6, Platelet Count 411, Mean Platelet Volume 10.7, Neutrophils (%) (Auto) 94, Lymphocytes (%) (Auto) 3, Monocytes (%) (Auto) 3, Eosinophils (%) (Auto) 0, Basophils (%) (Auto) 0, Neutrophils # (Auto) 13.7, Lymphocytes # (Auto) 0.5, Monocytes # (Auto) 0.4, Eosinophils # (Auto) 0.0, Basophils # (Auto) 0.0, Sodium Level 136, Potassium Level 4.1, Chloride Level 92, Carbon Dioxide Level 33, Anion Gap 11, Blood Urea Nitrogen 14, Creatinine 0.94, Estimat Glomerular Filtration Rate 59, BUN/ Creatinine Ratio 15, Glucose Level 224, Calcium Level 9.7, Total Bilirubin 0.3, Aspartate Amino Transf (AST/SGOT) 23, Alanine Aminotransferase (ALT/SGPT) 26, Alkaline Phosphatase 89, Total Protein 6.9, Albumin 3.8 Radiology Reviewed chest x-ray bibasilar minimal atelectasis. CT angiography of the chest. Irregular soft tissue mass. The lung mass within right lower lobe. Severe COPD Discussion & Recommendations patient have bronchoscopy done next week due to being on blood thinners Discharge Home Medications: Active Scripts Active Prednisone 10 Mg Tab.ds.pk 10 Mg PO DAILY Take 6 tabs(60mg)daily,decrease by 1 tab(10mg)every other day. Reported Symbicort 160-4.5 Mcg Inhaler (Budesonide/Formoterol Fumarate) 10.2 Gm Hfa.aer.ad 2 Puff IH BID Spiriva Respimat (Tiotropium [place]) 4 Gm Mist.inhal 2 Puff IH DAILY Ventolin Hfa (Albuterol Sulfate) 1 Puff Puff 2 Puff IH Q4H PRN 1 PUFF = 90 MCG Acetaminophen-Cod #4 Tablet (Acetaminophen with Codeine) 1 Each Tablet 1 Tab PO HS Pantoprazole Sodium 40 Mg Tablet.dr 40 Mg PO DAILY Furosemide 20 Mg Tablet 20 Mg PO DAILY Promethazine-Codeine Syrup (Promethazine HCl/Codeine) 118 Ml Syrup 10 Ml PO TID PRN Co Q-10 (Ubidecarenone) 200 Mg Capsule 200 Mg PO HS Lisinopril 10 Mg Tablet 10 Mg PO DAILY Cetirizine HCl 10 Mg Tablet 10 Mg PO HS Levothyroxine Sodium 50 Mcg Tablet 50 Mcg PO HS Albuterol Sulfate 2.5 Mg/3 Ml Vial.neb 2.5 Mg NEB 5XD PRN Metoprolol Tartrate 50 Mg Tablet 50 Mg PO BID Stress 500 (Multivits,Stress Formula) 1 Each Tablet 1 Tab PO DAILY Nitrostat (Ed Only) (Nitroglycerin) 0.4 Mg Btl 0.4 Mg SL UD PRN 1 TAB EVERY 5 MINUTES FOR 3 DOSES NEEDED FOR CHEST PAIN Atorvastatin Calcium 40 Mg Tablet 40 Mg PO HS Instructions to patient/family Please see electonic discharge instructions given to patient. Clinical Quality Measures DVT/VTE Risk/Contraindication: Risk Factor Score Per Nursin RFS Level Per Nursing on Admit: 4+=Very High WEST MCCAULEY DO Sep 10, 2016 07:20
--- NOTE | 2016-09-10 09:27 | Physician Query ---
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 Please document below. 1.a. Thrombosis left renal artery. b. Arteriosclerosis left renal artery. 2. Left renal artery occlusion. 3. Other, with explanation of the clinical findings. 4. Clinically undetermined, no explanation for the clinical findings. PHYSICIAN RESPONSE Can you specify per above: Clinically undetermined In responding to this query, please exercise your independent professional judgment. The purpose of this communication is to more accurately reflect the complexity of your patients condition. The fact that a question is asked does not imply that any particular answer is desired or expected. Thank you for your timely response to this clarification. Requestors name: Soraya Juarez [facility] Phone # ext [phone] or [phone] THIS PHYSICIAN QUERY FORM IS A PERMANENT PART OF THE MEDICAL RECORD SORAYA JUAREZ Sep 10, 2016 09:27 NORMA ALVARADO MD [facility] Sep 10, 2016 12:40
== END 2016-09-06 14:09 | disposition home or self-care (01) | DRG 191 ==
LOC: EDUNIT# 14:09 → ER 14:11 → 4TH 17:47
PROVIDERS: ADMIT Family Medicine; ATTEND Family Medicine
DX: J44.1 Chronic obstructive pulmonary disease with (acute) exacerbation (principal); D38.1 Neoplasm of uncertain behavior of trachea, bronchus and lung; I25.10 Atherosclerotic heart disease of native coronary artery without angina pectoris; I10 Essential (primary) hypertension; N28.0 Ischemia and infarction of kidney; I27.2 Other secondary pulmonary hypertension; I73.9 Peripheral vascular disease, unspecified; E78.5 Hyperlipidemia, unspecified; E03.9 Hypothyroidism, unspecified; R73.9 Hyperglycemia, unspecified; R79.1 Abnormal coagulation profile; F41.9 Anxiety disorder, unspecified; Z99.81 Dependence on supplemental oxygen; Z95.1 Presence of aortocoronary bypass graft; Z95.5 Presence of coronary angioplasty implant and graft; Z95.828 Presence of other vascular implants and grafts; Z87.891 Personal history of nicotine dependence; Z79.02 Long term (current) use of antithrombotics/antiplatelets; Z79.82 Long term (current) use of aspirin
CPT/HCPCS: 36415; 71010; 71275; 80053; 80061; 83735; 83874; 83880; 84484; 85025; 85379; 85610; 85730; 93005; 93041; 94640; 94664; 94760; 96374

== ENCOUNTER 2016-09-10 05:49 | Outpatient (CLI) | payer MEDICARE, OTHER ==
[~2016-09-10] VITALS: Ht 160 cm; Wt 54.4 kg
[~2016-09-10 05:49] MED LIST changes: +ACET1TAB45 PO; +BUDE10.2 IH; +RT-ALBUINH IH
== END 2016-09-10 15:21 | disposition home or self-care (01) ==
LOC: PREOP 05:49
PROVIDERS: ATTEND Internal Medicine Critical Care Medicine
DX: Z01.818 Encounter for other preprocedural examination (principal)

== ENCOUNTER 2016-09-12 06:56 | Day surgery (SDC) | payer MEDICARE, OTHER ==
[~2016-09-12] VITALS: Ht 160 cm; Wt 54.4 kg
[2016-09-12] MEDS ORDERED: NS IV 500 ML 500 ML IV PRN (07:05)
[2016-09-12] MEDS ORDERED: NALOXONE 0.4 MG/ML 1 ML (NARCAN) VIAL IVP PRN (07:15)
[2016-09-12] MEDS ORDERED: NS IV 1000 ML 1,000 ML IV PRN (07:15)
[2016-09-12] MEDS ORDERED: FLUMAZENIL (ROMAZICON) 0.1 MG/ML 5 ML VIAL INJ PRN (07:15)
[2016-09-12 07:33] VITALS: BP 140/83
--- NOTE | 2016-09-12 08:35 | Progress Note-Pre Operative ---
Pre-Operative Progress Note H&P Reviewed The H&P was reviewed, patient examined and no changes noted. Time Seen by Provider: 08:35 Date H&P Reviewed: Sep 12, 2016 Time H&P Reviewed: 08:35 Pre-Operative Diagnosis: lung mass ALTAGRACIA WALLACE DO Sep 12, 2016 08:35
[2016-09-12] MEDS ORDERED: LIDOCAINE PF 2% 5 ML (XYLOCAINE) VIAL ONE (08:43)
[2016-09-12] MEDS ORDERED: PROPOFOL INJECTION 50 ML IV ONE (08:43)
[2016-09-12] MEDS ORDERED: proPOfol 200 MG/20 ML (DIPRIVAN) VIAL IV ONE (08:43)
[2016-09-12] MEDS ORDERED: fentaNYL INJECTION 100 MCG/2 ML AMP ONE (08:43)
[2016-09-12] MEDS ORDERED: ROCURONIUM 50 MG/5 ML (ZEMURON) VIAL IV ONE (08:43)
[2016-09-12] MEDS ORDERED: GLYCOPYRROLATE 0.2 MG/ML (ROBINUL) 2 ML VIAL ONE (09:09)
[2016-09-12] MEDS ORDERED: NEOSTIGMINE (BLOXIVERZ ) 1 MG/1ML 10 ML VIAL ONE (09:09)
[2016-09-12 10:35] VITALS: BP 161/87
--- NOTE | 2016-09-12 10:55 | Diagnostic Imaging Report ---
Portable upright radiograph of the chest. INDICATION: Post bronchoscopy evaluation FINDINGS: There is interstitial thickening likely related to mild vascular congestion. Surgical sutures and surgical clips in the left upper lobe are seen. There is evidence of prior sternotomy with sternotomy wires also noted. Minimal right basilar atelectasis. The lungs demonstrate background hyperinflation likely related to COPD. The heart size is slightly enlarged. IMPRESSION: Cardiomegaly with minimal vascular congestion. COPD. Dictated by: Dictated on workstation # [id number]
[2016-09-12 11:00] VITALS: BP 145/73
[2016-09-12 11:35] VITALS: BP 145/73
--- NOTE | 2016-09-13 09:57 | Pulmonary Procedures ---
Pulmonary Procedures Date of Procedure Date of Service: Sep 12, 2016 Bronch Bronchoscopy with EBUS with bx of station 7 lymph nodes, bilateral lung wash Preop DX: mediastinal lymphadenopathy PostOP DX: same Complications: None Pt was sedated per anesthesia. Bronchoscopy was advanced through the ED tube and an anatomical undertaken down to the segmental bronchi bilaterally. Pt had copious amounts of sputum from bilateral airways. Bronchial washings were done bilateral. No endobronchial lesions noted. EBUS was then advanced through ET tube and the mediastinum was US. Station [7] lymph nodes were sampled via needle bx under US guidance. Pt tolerated procedure well. No complications noted. ALTAGRACIA WALLACE DO Sep 13, 2016 09:57
== END 2016-09-12 11:35 | disposition home or self-care (01) ==
LOC: ENDO 06:56
PROVIDERS: ATTEND Internal Medicine Critical Care Medicine
DX: R59.0 Localized enlarged lymph nodes (principal); I10 Essential (primary) hypertension; I73.9 Peripheral vascular disease, unspecified; I25.10 Atherosclerotic heart disease of native coronary artery without angina pectoris; Z95.1 Presence of aortocoronary bypass graft; F17.210 Nicotine dependence, cigarettes, uncomplicated; J44.9 Chronic obstructive pulmonary disease, unspecified; F41.9 Anxiety disorder, unspecified
CPT/HCPCS: 71010; 87070; 87205

== ENCOUNTER → 2016-09-18 | Outpatient (CLI) | payer MEDICARE, OTHER | LOC: RAD 09:24 | PROVIDERS: ATTEND Internal Medicine Hematology & Oncology | DX: R91.1 Solitary pulmonary nodule (principal) ==

== ENCOUNTER → 2016-09-25 | Outpatient (CLI) | payer MEDICARE, OTHER ==
[2016-09-25 10:18] LABS: BASOPHILS % (AUTO) 0 % (0-10); EOSINOPHILS # (AUTO) 0.4 10^3/uL (0.0-0.3); EOSINOPHILS % (AUTO) 3 % (0-10); LYMPHOCYTES # (AUTO) 0.9 X 10^3 (1.0-4.0); LYMPHOCYTES % (AUTO) 9 % (12-44); MEAN CORPUSCULAR HEMOGLOBIN 29 PG (25-34); MEAN CORPUSCULAR HGB CONC 30 G/DL (32-36); MEAN CORPUSCULAR VOLUME 96 FL (80-99); MEAN PLATELET VOLUME 10.4 FL (7.4-10.4); MONOCYTES # (AUTO) 0.7 X 10^3 (0.0-1.0); MONOCYTES % (AUTO) 7 % (0-12); NEUTROPHILS # (AUTO) 8.3 X 10^3 (1.8-7.8); NEUTROPHILS % (AUTO) 81 % (42-75); PLATELET COUNT 275 10^3/uL (130-400); RED CELL DISTRIBUTION WIDTH 14.7 % (10.0-14.5); WHITE BLOOD COUNT 10.3 10^3/uL (4.3-11.0)
[2016-09-25 10:45] LABS: EOSINOPHILS % (MANUAL) 2 %; LYMPHOCYTES % (MANUAL) 8 %; NEUTROPHILS % (MANUAL) 86 %; POIKILOCYTOSIS SLIGHT
== END ==
LOC: LAB 09:58
PROVIDERS: ATTEND Nurse Practitioner Family
DX: C34.90 Malignant neoplasm of unspecified part of unspecified bronchus or lung (principal); J43.8 Other emphysema
CPT/HCPCS: 36415; 85007; 85027

== ENCOUNTER → 2016-09-25 | Outpatient (CLI) | payer MEDICARE, OTHER ==
--- NOTE | 2016-09-25 13:44 | Diagnostic Imaging Report ---
EXAMINATION: PET-CT TECHNIQUE: Serum glucose level at the time of the study is: 132 mg/dL. 11.6 mCi of FDG was administered intravenously followed by obtaining PET images with corresponding noncontrast CT scan images. The CT scan was performed for anatomic correlation and attenuation correction and was not performed according to the diagnostic protocol of the areas covered. The scan was performed from the head to mid thighs. INDICATION: Lung nodule. FINDINGS: There is symmetric FDG uptake seen in the brain. There is no significant hypermetabolism seen in the neck. In the chest, there is an intensely hypermetabolic nodule seen along the medial aspect of the right lung abutting the posterior margin of the right mainstem bronchus, probably arising from the lung along the major fissure and measures approximately 2.6 x 1.6 cm in axial dimensions. It is associated with SUV of 12. This lesion is within 1 cm from the veronica. There are no other hypermetabolic masses or lymph nodes in the chest. This is likely related to a primary lung cancer. There is moderate hypermetabolism seen in the posterior wall of the antrum of the stomach with maximum SUV of 6.6. This area appears slightly thickened on the localizer CT scan and is potentially related to focal gastric wall spasm or physiologic activity rather than underlying mass. Minimal FDG uptake in bowel loops also seen. Note is made of excretion only from the right kidney with no radiotracer excretion from the left kidney which is atrophic. Urinary bladder excretion is also noted. There is mild increased FDG uptake with SUV of 3 at T9 vertebral level of uncertain significance. When correlated with CT chest of 09/04/16, there is a compression fracture at this level and this may explain the FDG activity without a suspicious underlying lesion. IMPRESSION: 1. There is a right lung intensely hypermetabolic nodule abutting the posterior margin of the right mainstem bronchus highly suggestive of primary lung cancer. No definite evidence of lymph node spread or distant metastasis. 2. Increased FDG uptake along the posterior wall of the antrum of the stomach is favored to be physiologic. This can be better evaluated with endoscopy. 3. Mild FDG uptake in T9 vertebral body is favored to be related to compression fracture and reactive changes. 4. There is atrophy of the left kidney with no excretory function seen. Dictated by: Dictated on workstation # [id number]
== END ==
LOC: RAD 09:55
PROVIDERS: ATTEND Internal Medicine Hematology & Oncology
DX: R91.1 Solitary pulmonary nodule (principal); N26.1 Atrophy of kidney (terminal); M48.54XA Collapsed vertebra, not elsewhere classified, thoracic region, initial encounter for fracture

== ENCOUNTER → 2016-10-02 | Outpatient (CLI) | payer MEDICARE, OTHER ==
[~2016-10-02] MED LIST changes: +GADOBUTROL 7.5 MMOL/7.5 ML (GADAVIST) VIAL IV ONE
--- NOTE | 2016-10-02 11:22 | Diagnostic Imaging Report ---
EXAMINATION: Multiplanar, multisequence MRI of the thoracic spine performed without and with intravenous contrast. INDICATION: History of lung cancer with back pain. 5 mL of Gadavist is administered intravenously. FINDINGS: There is evidence of old compression fractures involving T8 level with 80% vertebral body height loss and mild compression fracture of T5 and T12 that also appear chronic. There are, in addition, acute to subacute compression fractures with 20% vertebral body height loss at T9 and 40% vertebral body height loss at T10 vertebral bodies. These are associated with bone marrow edema. The abnormal marrow signal in T9 involves the entire vertebral body but does not appear to extend to the posterior elements. There is no associated extra-axial soft tissue mass. The findings are in favor of an osteoporotic type fracture with no definite underlying mass seen. There is also suggestion of subacute mild compression fracture of L2 vertebral body. This is not well evaluated on T2 fat-sat images or the axial images on this thoracic spine MRI. The spinal cord has normal caliber, contour and signal. At T8/9 there is a disc bulge associated with mild spinal canal stenosis without cord compression. Also disc bulge at T9/10 is seen resulting in mild to moderate spinal canal stenosis reducing the AP dimension of the canal to 8 mm. There is no associated cord compression. There is no abnormal enhancement within the spinal cord or the spinal canal. There is a focal lesion in the marrow involving the vertebral body T3 with T1 hyperintensity probably related to hemangioma. No suspicious lesions to suggest metastatic disease. There is moderate neural foraminal narrowing at T9/10 on the right side and mild narrowing on the left seen. IMPRESSION: 1. Acute to subacute compression fractures of T9 and T10. 2. Partially visualized L2 level on some sequences also suggest a subacute compression fracture. 3. Chronic compression fractures of T8, T5 and T11 levels. 4. Old the above fractures are favored to be osteoporotic related with no definite evidence of metastasis. Dictated by: Dictated on workstation # [id number]
== END ==
LOC: RAD 08:25
PROVIDERS: ATTEND Internal Medicine Hematology & Oncology
DX: M48.54XA Collapsed vertebra, not elsewhere classified, thoracic region, initial encounter for fracture (principal); C34.90 Malignant neoplasm of unspecified part of unspecified bronchus or lung
CPT/HCPCS: 72157

== ENCOUNTER → 2016-10-10 | Outpatient (CLI) | payer MEDICARE, OTHER ==
[~2016-10-10] MED LIST changes: -GADOBUTROL 7.5 MMOL/7.5 ML (GADAVIST) VIAL IV ONE; +RT-ALBUTEROL SULF 2.5 MG/3 ML PRE-MIX VIAL IH ONE; +RT-ALBUTEROL SULF 2.5 MG/3 ML PRE-MIX VIAL ONE
== END ==
LOC: RT 16:25
PROVIDERS: ATTEND Internal Medicine Critical Care Medicine
DX: C34.91 Malignant neoplasm of unspecified part of right bronchus or lung (principal)
CPT/HCPCS: 94060; 94640; 94726

== ENCOUNTER 2016-10-29 18:57 | Emergency (ER) | payer MEDICARE, OTHER ==
[~2016-10-29] VITALS: Ht 154.9 cm; Wt 51.0 kg
[~2016-10-29 18:57] MED LIST changes: -RT-ALBUTEROL SULF 2.5 MG/3 ML PRE-MIX VIAL IH ONE; -RT-ALBUTEROL SULF 2.5 MG/3 ML PRE-MIX VIAL ONE
--- NOTE | 2016-10-29 19:47 | Diagnostic Imaging Report ---
INDICATION: Status post trauma. Pain EXAMINATION: Left humerus dated 10/29/2016 FINDINGS: Two views of the left humerus demonstrate a fracture through the proximal aspect of the humerus with foreshortening at the fracture site. No obvious dislocation at the joint space is seen but there is some widening at the glenohumeral joint. Remaining visualized osseous structures appear to be intact. IMPRESSION: 1. Acute foreshortened comminuted proximal humerus fracture. Dictated by: Dictated on workstation # [id number]
--- NOTE | 2016-10-29 19:49 | Diagnostic Imaging Report ---
INDICATION: Tripped and fell today EXAMINATION: Left shoulder 10/29/2016 FINDINGS: Three views of the shoulder Comminuted proximal humerus fracture seen which is foreshortened at the fracture site. No dislocation but mild widening at the joint space is seen and there is surrounding soft tissue swelling. There is postoperative change in the visualized left lung. IMPRESSION: 1. Comminuted proximal humerus fracture as described above. Dictated by: Dictated on workstation # [id number]
[2016-10-29] MEDS ORDERED: fentaNYL INJECTION 100 MCG/2 ML AMP IM STA (19:52)
--- NOTE | 2016-10-29 19:52 | ED Upper Extremity ---
General Chief Complaint: Upper Extremity Stated Complaint: FALL/L SHOULDER PAIN Nursing Triage Note: PT TO ED 1 PER EMS FOR C/O LT SHOULDER PAIN ONSET DICE SPOTTER AFTER FALLING AT HOME. DENIES LOC. STATES SHE TRIPPED OVER HER O2 TUBING. Nursing Sepsis Screen: No Definite Risk Source: patient, family Exam Limitations: no limitations History of Present Illness Time seen by provider: 19:48 Initial Comments Patient says she was walking around her house and tripped over her own oxygen line and fell on the side of her left shoulder. She did not hit her head nor did she pass out. She is not been having falls recently. She denies discharge fevers malaise or nausea or difficulty urinating. She is known and to have lung cancer and is taking chemotherapy. She is not reporting any shortness of breath or chest pain this time. Her pain is all located in her left shoulder. She says she also landed on her knees but they are no longer hurting. Before coming in she says she took a swig of her Tylenol with Codeine medicine. Allergies and Home Medications Allergies Coded Allergies: Penicillins (Verified Allergy, Severe, ANAPHYLAXIS, 09/04/16) hydrochlorothiazide (Verified Allergy, Unknown, 09/04/16) levofloxacin (Verified Allergy, Unknown, 09/04/16) penicillin G (Verified Allergy, Unknown, 09/04/16) Home Medications Acetaminophen with Codeine 1 Each Tablet, 1 TAB PO HS, (Reported) Albuterol Sulfate 2.5 Mg/3 Ml Vial.neb, 2.5 MG NEB 5XD PRN for SHORTNESS OF BREATH, (Reported) Albuterol Sulfate 1 Puff Puff, 2 PUFF IH Q4H PRN for SHORTNESS OF BREATH, ( Reported) 1 PUFF = 90 MCG Atorvastatin Calcium 40 Mg Tablet, 40 MG PO HS, (Reported) Budesonide/Formoterol Fumarate 10.2 Gm Hfa.aer.ad, 2 PUFF IH BID, (Reported) Cetirizine HCl 10 Mg Tablet, 10 MG PO HS, (Reported) Furosemide 20 Mg Tablet, 20 MG PO DAILY, (Reported) Levothyroxine Sodium 50 Mcg Tablet, 50 MCG PO HS, (Reported) Lisinopril 10 Mg Tablet, 10 MG PO DAILY, (Reported) Metoprolol Tartrate 50 Mg Tablet, 50 MG PO BID, (Reported) Multivits,Stress Formula 1 Each Tablet, 1 TAB PO DAILY, (Reported) Nitroglycerin 0.4 Mg Btl, 0.4 MG SL UD PRN for CHEST PAIN, (Reported) 1 TAB EVERY 5 MINUTES FOR 3 DOSES NEEDED FOR CHEST PAIN Pantoprazole Sodium 40 Mg Tablet.dr, 40 MG PO DAILY, (Reported) Prednisone 10 Mg Tab.ds.pk, 10 MG PO DAILY, #42 Take 6 tabs(60mg)daily,decrease by 1 tab(10mg)every other day. Prescribed by: ALISHA PATEL on 09/06/16 1227 Promethazine HCl/Codeine 118 Ml Syrup, 10 ML PO TID PRN for COUGH, (Reported) Tiotropium [place] 4 Gm Mist.inhal, 2 PUFF IH DAILY, (Reported) Ubidecarenone 200 Mg Capsule, 200 MG PO HS, (Reported) Constitutional: No chills, No diaphoresis EENTM: No ear pain, No eye pain Respiratory: No cough, No short of breath Cardiovascular: No chest pain, No syncope Gastrointestinal: No constipation, No diarrhea, No nausea Genitourinary: No discharge, No dysuria, No frequency : No Musculoskeletal: see HPI Past Unqtbsp-Agplns-Bzayir Hx Patient Social History Alcohol Use: Denies Use Recreational Drug Use: No Smoking Status: Former Smoker Type Used: Cigarettes Former Smoker/When Quit: Jul 11, 2012 Recent Foreign Travel: No Contact w/Someone Who Travel: No Recent Infectious Disease Expo: No Recent Hopitalizations: Yes Immunizations Up To Date Tetanus Booster (TDap): Less than 5yrs PED Vaccines UTD: Yes Date of Pneumonia Vaccine: Feb 07, 2016 Date of Influenza Vaccine: Feb 07, 2016 Seasonal Allergies Seasonal Allergies: Yes Surgeries HX Surgeries: Yes (CARDIAC CATH) Surgeries: CABG, Vascular Surgery Respiratory Hx Respiratory Disorders: Yes Respiratory Disorders: COPD Cardiovascular Hx Cardiac Disorders: Yes (cabbage with stents) Cardiac Disorders: Coronary Artery Disease, Hypertension, Peripheral Vascular Neurological Hx Neurological Disorders: Yes (ANXIETY) Reproductive System Hx Reproductive Disorders: Yes (26 YRS. 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 Disorders: Denies Genitourinary Hx Genitourinary Disorders: No Gastrointestinal Hx Gastrointestinal Disorders: Yes ("BUTTERFLY" HERNIA) Musculoskeletal Hx Musculoskeletal Disorders: Yes (MAYBE MILD ARTHRITIS) Endocrine Hx Endocrine Disorders: Yes HEENT HX ENT Disorders: Yes (CATARACT SURGETY BOTH EYES) HEENT Disorders: Cataract Loss of Vision: Denies Hearing Impairment: Denies Cancer Hx Cancer: No Psychosocial Hx Psychiatric Problems: No Integumentary HX Skin/Integumentary Disorder: No Blood Transfusions Hx Blood Disorders: No Adverse Reaction to a Blood Tr: No Family Medical History Family Medial History: Chest pain 09 SISTER Congestive heart failure G-MA Family history: Cardiovascular disease 03 FATHER (68) 09 SISTER Family history: Hypertension 03 FATHER 09 SISTER G-MA Stroke Physical Exam Vital Signs Vital Sign - Last 12Hours 10/29/16 19:07 Temp 97.7 Pulse 90 Resp 24 B/P (MAP) 163/82 Pulse Ox 95 O2 Delivery Nasal Cannula O2 Flow Rate 3.00 Capillary Refill : Less Than 3 Seconds General Appearance: WD/WN, mild distress, no apparent distress HEENT: PERRL/EOMI, pharynx normal Neck: non-tender, full range of motion, normal inspection Cardiovascular: normal peripheral pulses, regular rate, rhythm, no edema Respiratory: chest non-tender, lungs clear, normal breath sounds Gastrointestinal: non tender, soft Shoulder: asymmetry, bone tenderness, deformity, limited ROM, pain, soft tissue tenderness, swelling (left) Elbow/Forearm: normal inspection, non-tender, no evidence of injury Wrist: Yes normal inspection, Yes non-tender, Yes no evidence of injury Hand: normal inspection, non-tender, no evidence of injury Neurologic/Tendon: normal sensation, normal motor functions, normal tendon functions, responds to pain Neurologic/Psychiatric: alert, oriented x 3 Skin: normal color, warm/dry Progress/Results/Core Measures Results/Orders Lab Results Laboratory Tests Test 10/29/16 20:05 Range/Units Urine Color YELLOW Urine Clarity CLEAR Urine pH 6 5-9 Urine Specific White 1.010 L 1.016-1.022 Urine Protein NEGATIVE NEGATIVE Urine Glucose (UA) 4+ H NEGATIVE Urine Ketones NEGATIVE NEGATIVE Urine Nitrite NEGATIVE NEGATIVE Urine Bilirubin NEGATIVE NEGATIVE Urine Urobilinogen NORMAL NORMAL MG/DL Urine Leukocyte Esterase NEGATIVE NEGATIVE Urine RBC (Auto) NEGATIVE NEGATIVE Urine RBC NONE /HPF Urine WBC RARE /HPF Urine Squamous Epithelial Cells 0-2 /HPF Urine Crystals NONE /LPF Urine Bacteria NEGATIVE /HPF Urine Casts NONE /LPF Urine Mucus NEGATIVE /LPF Urine Culture Indicated NO My Orders Orders - DIYA RIVERA Humerus, Left, 2 Views (10/29/16 19:13) Shoulder, Left, 3 Views (10/29/16 19:13) Ua Culture If Indicated (10/29/16 19:52) Fentanyl Injection (Sublimaze Injection (10/29/16 19:52) Cbc With Automated Diff (10/29/16 19:58) Comprehensive Metabolic Panel (10/29/16 19:58) Magnesium (10/29/16 19:58) Saline Lock/Iv-Start (10/29/16 19:58) Ns Iv 500 Ml (Sodium Chloride 0.9%) (10/29/16 19:58) Medications Given in ED Current Medications Medications Dose Ordered Sig/Imelda Route Start Time Stop Time Status Last Admin Dose Admin Sodium Chloride 500 ml @ 0 mls/hr Q0M ONCE IV 10/29/16 19:58 10/29/16 20:00 DC 10/29/16 20:15 500 MLS/HR Vital Signs/I&O Vital Sign - Last 12Hours 10/29/16 19:07 Temp 97.7 Pulse 90 Resp 24 B/P (MAP) 163/82 Pulse Ox 95 O2 Delivery Nasal Cannula O2 Flow Rate 3.00 Blood Pressure Mean: 109 Progress Note : Time: 19:56 Progress Note Fracture of the left humerus comminuted. We'll get her pain control IV started and talked orthopedics. Diagnostic Imaging Diagonstic Imaging: Xray Plain Films/CT/US/NM/MRI: other (shoulder and humerus) Comments NAME: JUAN FRANCISCO [facility] REC#: [id number] PHYSICIAN: DIYA RIVERA MD CC: ADRI LIPSCOMB MD; DIYA RIVERA Page 1 of 1 RADIOLOGY REPORT VIA [place], [place] CC: ADRI LIPSCOMB MD; DIYA RIVERA Page 1 of 1 RADIOLOGY REPORT NAME: JUAN FRANCISCO [facility] REC#: [id number] PT STATUS: REG ER : 1945 PHYSICIAN: DIYA RIVERA MD ADMIT DATE: 10/29/16/ER Signed Date of Exam: 10/29/16 SHOULDER, LEFT, 3 VIEWS INDICATION: Tripped and fell today EXAMINATION: Left shoulder 10/29/2016 FINDINGS: Three views of the shoulder Comminuted proximal humerus fracture seen which is foreshortened at the fracture site. No dislocation but mild widening at the joint space is seen and there is surrounding soft tissue swelling. There is postoperative change in the visualized left lung. IMPRESSION: 1. Comminuted proximal humerus fracture as described above. Dictated by: Dictated on workstation # [id number] Dict: 10/29/161943 Trans: 10/29/162007 Interpreted by: ADRI LIPSCOMB MD Electronically signed by: ADRI LIPSCOMB MD 10/29/162007 NAME: JUAN FRANCISCO [facility] REC#: [id number] PHYSICIAN: DIYA RIVERA MD CC: ADRI LIPSCOMB MD; DIYA RIVERA Page 1 of 1 RADIOLOGY REPORT VIA [facility] [place], [place] CC: ADRI LIPSCOMB MD; DIYA RIVERA Page 1 of 1 RADIOLOGY REPORT NAME: JUAN FRANCISCO [facility] REC#: [id number] PT STATUS: REG ER : 1945 PHYSICIAN: DIYA RIVERA MD ADMIT DATE: 10/29/16/ER Signed Date of Exam: 10/29/16 HUMERUS, LEFT, 2 VIEWS INDICATION: Status post trauma. Pain EXAMINATION: Left humerus dated 10/29/2016 FINDINGS: Two views of the left humerus demonstrate a fracture through the proximal aspect of the humerus with foreshortening at the fracture site. No obvious dislocation at the joint space is seen but there is some widening at the glenohumeral joint. Remaining visualized osseous structures appear to be intact. IMPRESSION: 1. Acute foreshortened comminuted proximal humerus fracture. Dictated by: Dictated on workstation # [id number] Dict: 10/29/161936 Trans: 10/29/162007 Interpreted by: ADRI LIPSCOMB MD Electronically signed by: ADRI LIPSCOMB MD 10/29/162007 Reviewed: Reviewed by Me Consults Consults : Consulting Physician: TRISHA TROY DO Consults Notes Spoke to orthopedic surgeon about the patient and he feels with a surgical neck fracture displaced that she could get a sling to pain control go home and follow -up with Dr. Cosby tomorrow morning. Departure Impression Impression: Primary Impression: Closed fracture of humerus, surgical neck Qualified Codes: S42.222A - 2-part displaced fracture of surgical neck of left humerus, initial encounter for closed fracture Additional Impression: Fall Qualified Codes: W19.XXXA - Unspecified fall, initial encounter Disposition: HOME, SELF-CARE Condition: Improved Departure-Patient Inst. Decision time for Depature: 20:42 Referrals: WEST MCCAULEY DO (PCP/Family) Primary Care Physician Patient Instructions: How to Use a Shoulder Sling, Shoulder Fracture (DC) Add. Discharge Instructions: You have a fracture across the neck of your humerus. This is going to be best treated with a sling and follow-up with Dr. Cosby ([facility] [phone]) or an orthopedic surgeon of your choice tomorrow morning. For pain you can use the hydrocodone 5 days every 4 hours as needed. If this is not helping your pain you can also add to that 800 mg of ibuprofen every 8 hours by mouth. You may also take another 325 mg of Tylenol every 4 hours. If you run out of the hydrocodone tonight you can take your own Tylenol with Codeine that your oncologist has written for you as prescribed. You can also apply an ice pack to the shoulder if there is swelling and pain. If you have any new or worsening symptoms you may return to the ER please make sure you follow up with orthopedic surgery in the morning. All discharge instructions reviewed with patient and/or family. Voiced understanding. Scripts Hydrocodone/Acetaminophen (Hydrocodon -Acetaminophen 5-325) 1 Each Tablet 1 EACH PO Q4H Y for PAIN, #30 TAB 0 Refills Prov: DIYA RIVERA 10/29/16 Copy Copies To 1: WE[facility] MCCAULEY TITUS J Oct 29, 2016 19:52
[2016-10-29] MEDS ORDERED: NS IV 500 ML 500 ML IV ONE (19:58)
[2016-10-29 20:12] LABS: BILIRUBIN,URINE NEGATIVE (NEGATIVE); KETONES,URINE NEGATIVE (NEGATIVE); LEUKOCYTE ESTERASE ,URINE NEGATIVE (NEGATIVE); NITRITE,URINE NEGATIVE (NEGATIVE); PH,URINE 6 (5-9); PROTEIN,URINE NEGATIVE (NEGATIVE); UROBILINOGEN,URINE NORMAL (NORMAL)
[2016-10-29 20:26] LABS: SQUAMOUS EPITHELIAL CELL,UR 0-2 /HPF; WBC,URINE RARE /HPF
[2016-10-29] MEDS ORDERED: HYDR-3812 PO (20:47)
[2016-10-29] MEDS ORDERED: fentaNYL INJECTION 100 MCG/2 ML AMP IVP PRN ×2 (21:00→21:15)
[2016-10-29] MEDS ORDERED: RX-HYDROCODONE/APAP 5/325 MG #4 TAB PK PO PRN (21:00)
[2016-10-29 21:05] LABS: BASOPHILS % (AUTO) 0 % (0-10); EOSINOPHILS % (AUTO) 0 % (0-10); LYMPHOCYTES # (AUTO) 0.2 X 10^3 (1.0-4.0); LYMPHOCYTES % (AUTO) 2 % (12-44); MEAN CORPUSCULAR HEMOGLOBIN 29 PG (25-34); MEAN CORPUSCULAR HGB CONC 30 G/DL (32-36); MEAN CORPUSCULAR VOLUME 97 FL (80-99); MEAN PLATELET VOLUME 10.5 FL (7.4-10.4); MONOCYTES # (AUTO) 0.5 X 10^3 (0.0-1.0); MONOCYTES % (AUTO) 5 % (0-12); NEUTROPHILS # (AUTO) 8.7 X 10^3 (1.8-7.8); NEUTROPHILS % (AUTO) 92 % (42-75); PLATELET COUNT 353 10^3/uL (130-400); RED BLOOD COUNT 3.47 10^6/uL (4.35-5.85); RED CELL DISTRIBUTION WIDTH 14.6 % (10.0-14.5); WHITE BLOOD COUNT 9.4 10^3/uL (4.3-11.0)
[2016-10-29 21:20] LABS: BAND NEUTROPHILS 1 %; BASOPHILS % (MANUAL) 0 %; EOSINOPHILS % (MANUAL) 0 %; HYPOCHROMASIA SLIGHT; LYMPHOCYTES % (MANUAL) 4 %; NEUTROPHILS % (MANUAL) 95 %
[2016-10-29 21:29] VITALS: BP 167/88
[2016-10-29 21:35] LABS: ALANINE AMINOTRANSFERASE 21 U/L (0-55); ALBUMIN 3.6 GM/DL (3.2-4.5); ANION GAP 9 MMOL/L (5-14); ASPARTATE AMINO TRANSFERASE 16 U/L (5-34); BILIRUBIN,TOTAL 0.4 MG/DL (0.1-1.0); BLOOD UREA NITROGEN 20 MG/DL (7-18); BUN/CREATININE RATIO 22; CALCIUM 8.7 MG/DL (8.5-10.1); CARBON DIOXIDE 30 MMOL/L (21-32); CHLORIDE 97 MMOL/L (98-107); CREATININE SERUM 0.91 MG/DL (0.60-1.30); GFR ESTIMATED > 60; GLUCOSE 261 MG/DL (70-105); MAGNESIUM 2.2 MG/DL (1.8-2.4); POTASSIUM 4.8 MMOL/L (3.6-5.0); SODIUM 136 MMOL/L (135-145); TOTAL PROTEIN 6.6 GM/DL (6.4-8.2)
== END 2016-10-29 21:29 | disposition home or self-care (01) ==
LOC: EDUNIT# 18:57 → ER 18:58
DX: S42.212A Unspecified displaced fracture of surgical neck of left humerus, initial encounter for closed fracture (principal); F41.9 Anxiety disorder, unspecified; I10 Essential (primary) hypertension; I25.10 Atherosclerotic heart disease of native coronary artery without angina pectoris; J44.9 Chronic obstructive pulmonary disease, unspecified; Z95.5 Presence of coronary angioplasty implant and graft; Z95.1 Presence of aortocoronary bypass graft; Z87.891 Personal history of nicotine dependence; Z90.710 Acquired absence of both cervix and uterus; W18.09XA Striking against other object with subsequent fall, initial encounter
CPT/HCPCS: 36415; 73030; 73060; 80053; 81000; 83735; 85007; 85027; 96361; 96372; 96374; 96376

== ENCOUNTER → 2016-12-13 | Outpatient (CLI) | payer MEDICARE, OTHER ==
[~2016-12-13] MED LIST changes: +HYDR-3812 PO
[2016-12-13 14:20] LABS: ANION GAP 9 MMOL/L (5-14); BLOOD UREA NITROGEN 13 MG/DL (7-18); BUN/CREATININE RATIO 14; CALCIUM 9.7 MG/DL (8.5-10.1); CARBON DIOXIDE 36 MMOL/L (21-32); CHLORIDE 92 MMOL/L (98-107); GFR ESTIMATED > 60; GLUCOSE 164 MG/DL (70-105); MAGNESIUM 1.9 MG/DL (1.8-2.4); POTASSIUM 4.6 MMOL/L (3.6-5.0); SODIUM 137 MMOL/L (135-145)
== END ==
LOC: HH 12:00
PROVIDERS: ATTEND Internal Medicine Hematology & Oncology
DX: R94.4 Abnormal results of kidney function studies (principal); E83.42 Hypomagnesemia
CPT/HCPCS: 80048; 83735

== ENCOUNTER → 2016-12-26 | Outpatient (RCR) | payer MEDICARE, OTHER ==
[2016-09-27 14:23] LABS: ALBUMIN 3.8 GM/DL (3.2-4.5); BILIRUBIN,TOTAL 0.3 MG/DL (0.1-1.0); CALCIUM 9.9 MG/DL (8.5-10.1); CREATININE SERUM 1.14 MG/DL (0.60-1.30); ICTERUS 0.4 (-100-1.9); POTASSIUM 5.1 MMOL/L (3.6-5.0); TOTAL PROTEIN 7.3 GM/DL (6.4-8.2)
[2016-09-27 14:33] LABS: BASOPHILS % (AUTO) 0 % (0-10); EOSINOPHILS # (AUTO) 0.3 10^3/uL (0.0-0.3); EOSINOPHILS % (AUTO) 4 % (0-10); LYMPHOCYTES % (AUTO) 11 % (12-44); MEAN CORPUSCULAR HEMOGLOBIN 29 PG (25-34); MEAN CORPUSCULAR HGB CONC 30 G/DL (32-36); MEAN CORPUSCULAR VOLUME 98 FL (80-99); MEAN PLATELET VOLUME 10.9 FL (7.4-10.4); MONOCYTES # (AUTO) 0.7 X 10^3 (0.0-1.0); MONOCYTES % (AUTO) 8 % (0-12); NEUTROPHILS % (AUTO) 78 % (42-75); PLATELET COUNT 300 10^3/uL (130-400); RED BLOOD COUNT 4.01 10^6/uL (4.35-5.85); RED CELL DISTRIBUTION WIDTH 14.9 % (10.0-14.5)
[2016-10-15 08:52] LABS: BASOPHILS % (AUTO) 0 % (0-10); EOSINOPHILS % (AUTO) 0 % (0-10); LYMPHOCYTES # (AUTO) 0.3 X 10^3 (1.0-4.0); LYMPHOCYTES % (AUTO) 5 % (12-44); MEAN CORPUSCULAR HEMOGLOBIN 29 PG (25-34); MEAN CORPUSCULAR HGB CONC 30 G/DL (32-36); MEAN CORPUSCULAR VOLUME 98 FL (80-99); MEAN PLATELET VOLUME 10.1 FL (7.4-10.4); MONOCYTES # (AUTO) 0.1 X 10^3 (0.0-1.0); MONOCYTES % (AUTO) 1 % (0-12); NEUTROPHILS # (AUTO) 5.7 X 10^3 (1.8-7.8); NEUTROPHILS % (AUTO) 94 % (42-75); PLATELET COUNT 326 10^3/uL (130-400); RED BLOOD COUNT 3.81 10^6/uL (4.35-5.85)
[2016-10-15 09:18] LABS: ALBUMIN 3.8 GM/DL (3.2-4.5); BILIRUBIN,TOTAL 0.4 MG/DL (0.1-1.0); CALCIUM 9.5 MG/DL (8.5-10.1); CREATININE SERUM 0.97 MG/DL (0.60-1.30); POTASSIUM 4.9 MMOL/L (3.6-5.0); TOTAL PROTEIN 7.1 GM/DL (6.4-8.2)
[2016-10-22 09:25] LABS: BASOPHILS % (AUTO) 0 % (0-10); EOSINOPHILS % (AUTO) 0 % (0-10); LYMPHOCYTES # (AUTO) 0.2 X 10^3 (1.0-4.0); LYMPHOCYTES % (AUTO) 3 % (12-44); MEAN CORPUSCULAR HEMOGLOBIN 30 PG (25-34); MEAN CORPUSCULAR HGB CONC 30 G/DL (32-36); MEAN CORPUSCULAR VOLUME 99 FL (80-99); MEAN PLATELET VOLUME 10.3 FL (7.4-10.4); MONOCYTES # (AUTO) 0.1 X 10^3 (0.0-1.0); MONOCYTES % (AUTO) 1 % (0-12); NEUTROPHILS # (AUTO) 5.7 X 10^3 (1.8-7.8); NEUTROPHILS % (AUTO) 97 % (42-75); PLATELET COUNT 285 10^3/uL (130-400); RED BLOOD COUNT 3.73 10^6/uL (4.35-5.85)
[2016-10-22 09:57] LABS: CALCIUM 9.2 MG/DL (8.5-10.1); CREATININE SERUM 1.03 MG/DL (0.60-1.30); POTASSIUM 5.5 MMOL/L (3.6-5.0)
[2016-10-29 09:43] LABS: BASOPHILS % (AUTO) 0 % (0-10); EOSINOPHILS % (AUTO) 0 % (0-10); LYMPHOCYTES # (AUTO) 0.1 X 10^3 (1.0-4.0); LYMPHOCYTES % (AUTO) 2 % (12-44); MEAN CORPUSCULAR HEMOGLOBIN 30 PG (25-34); MEAN CORPUSCULAR HGB CONC 31 G/DL (32-36); MEAN CORPUSCULAR VOLUME 97 FL (80-99); MEAN PLATELET VOLUME 10.2 FL (7.4-10.4); MONOCYTES % (AUTO) 1 % (0-12); NEUTROPHILS # (AUTO) 5.5 X 10^3 (1.8-7.8); NEUTROPHILS % (AUTO) 98 % (42-75); PLATELET COUNT 364 10^3/uL (130-400); RED BLOOD COUNT 3.78 10^6/uL (4.35-5.85); RED CELL DISTRIBUTION WIDTH 14.7 % (10.0-14.5); WHITE BLOOD COUNT 5.6 10^3/uL (4.3-11.0)
[2016-10-29 10:09] LABS: ANION GAP 6 MMOL/L (5-14); BLOOD UREA NITROGEN 20 MG/DL (7-18); BUN/CREATININE RATIO 23; CALCIUM 9.5 MG/DL (8.5-10.1); CARBON DIOXIDE 36 MMOL/L (21-32); CHLORIDE 93 MMOL/L (98-107); CREATININE SERUM 0.87 MG/DL (0.60-1.30); GFR ESTIMATED > 60; GLUCOSE 342 MG/DL (70-105); POTASSIUM 5.5 MMOL/L (3.6-5.0); SODIUM 135 MMOL/L (135-145)
[2016-11-05 09:15] LABS: BASOPHILS % (AUTO) 0 % (0-10); EOSINOPHILS # (AUTO) 0.1 10^3/uL (0.0-0.3); EOSINOPHILS % (AUTO) 2 % (0-10); LYMPHOCYTES # (AUTO) 0.3 X 10^3 (1.0-4.0); LYMPHOCYTES % (AUTO) 4 % (12-44); MEAN CORPUSCULAR HEMOGLOBIN 30 PG (25-34); MEAN CORPUSCULAR HGB CONC 31 G/DL (32-36); MEAN CORPUSCULAR VOLUME 97 FL (80-99); MEAN PLATELET VOLUME 9.8 FL (7.4-10.4); MONOCYTES # (AUTO) 0.8 X 10^3 (0.0-1.0); MONOCYTES % (AUTO) 10 % (0-12); NEUTROPHILS # (AUTO) 6.3 X 10^3 (1.8-7.8); NEUTROPHILS % (AUTO) 83 % (42-75); PLATELET COUNT 482 10^3/uL (130-400); RED BLOOD COUNT 3.22 10^6/uL (4.35-5.85); WHITE BLOOD COUNT 7.5 10^3/uL (4.3-11.0)
[2016-11-05 09:39] LABS: ALBUMIN 3.7 GM/DL (3.2-4.5); BILIRUBIN,TOTAL 0.6 MG/DL (0.1-1.0); CALCIUM 9.5 MG/DL (8.5-10.1); CREATININE SERUM 0.93 MG/DL (0.60-1.30); MAGNESIUM 1.7 MG/DL (1.8-2.4); POTASSIUM 4.9 MMOL/L (3.6-5.0); TOTAL PROTEIN 6.7 GM/DL (6.4-8.2)
[2016-11-12 09:21] LABS: BASOPHILS % (AUTO) 0 % (0-10); EOSINOPHILS # (AUTO) 0.1 10^3/uL (0.0-0.3); EOSINOPHILS % (AUTO) 1 % (0-10); LYMPHOCYTES # (AUTO) 0.2 X 10^3 (1.0-4.0); LYMPHOCYTES % (AUTO) 3 % (12-44); MEAN CORPUSCULAR HEMOGLOBIN 31 PG (25-34); MEAN CORPUSCULAR HGB CONC 31 G/DL (32-36); MEAN CORPUSCULAR VOLUME 99 FL (80-99); MEAN PLATELET VOLUME 10.1 FL (7.4-10.4); MONOCYTES # (AUTO) 0.4 X 10^3 (0.0-1.0); MONOCYTES % (AUTO) 5 % (0-12); NEUTROPHILS # (AUTO) 7.5 X 10^3 (1.8-7.8); NEUTROPHILS % (AUTO) 91 % (42-75); PLATELET COUNT 402 10^3/uL (130-400); RED BLOOD COUNT 3.48 10^6/uL (4.35-5.85); RED CELL DISTRIBUTION WIDTH 17.1 % (10.0-14.5); WHITE BLOOD COUNT 8.2 10^3/uL (4.3-11.0)
[2016-11-12 09:57] LABS: ANION GAP 13 MMOL/L (5-14); BLOOD UREA NITROGEN 21 MG/DL (7-18); BUN/CREATININE RATIO 23; CALCIUM 9.5 MG/DL (8.5-10.1); CARBON DIOXIDE 32 MMOL/L (21-32); CHLORIDE 91 MMOL/L (98-107); CREATININE SERUM 0.91 MG/DL (0.60-1.30); GFR ESTIMATED > 60; GLUCOSE 214 MG/DL (70-105); POTASSIUM 4.8 MMOL/L (3.6-5.0); SODIUM 136 MMOL/L (135-145)
[2016-11-20 08:32] LABS: BASOPHILS % (AUTO) 0 % (0-10); EOSINOPHILS # (AUTO) 0.1 10^3/uL (0.0-0.3); EOSINOPHILS % (AUTO) 2 % (0-10); LYMPHOCYTES # (AUTO) 0.3 X 10^3 (1.0-4.0); LYMPHOCYTES % (AUTO) 5 % (12-44); MEAN CORPUSCULAR HEMOGLOBIN 31 PG (25-34); MEAN CORPUSCULAR HGB CONC 31 G/DL (32-36); MEAN CORPUSCULAR VOLUME 102 FL (80-99); MEAN PLATELET VOLUME 9.9 FL (7.4-10.4); MONOCYTES # (AUTO) 0.5 X 10^3 (0.0-1.0); MONOCYTES % (AUTO) 7 % (0-12); NEUTROPHILS # (AUTO) 5.2 X 10^3 (1.8-7.8); NEUTROPHILS % (AUTO) 86 % (42-75); PLATELET COUNT 293 10^3/uL (130-400); RED BLOOD COUNT 3.54 10^6/uL (4.35-5.85); RED CELL DISTRIBUTION WIDTH 17.5 % (10.0-14.5); WHITE BLOOD COUNT 6.1 10^3/uL (4.3-11.0)
[2016-11-20 08:54] LABS: ALBUMIN 3.8 GM/DL (3.2-4.5); BILIRUBIN,TOTAL 0.6 MG/DL (0.1-1.0); CALCIUM 9.7 MG/DL (8.5-10.1); CREATININE SERUM 1.07 MG/DL (0.60-1.30); MAGNESIUM 1.7 MG/DL (1.8-2.4); POTASSIUM 4.8 MMOL/L (3.6-5.0); TOTAL PROTEIN 6.8 GM/DL (6.4-8.2)
[2016-11-26 09:08] LABS: BASOPHILS % (AUTO) 1 % (0-10); EOSINOPHILS # (AUTO) 0.1 10^3/uL (0.0-0.3); EOSINOPHILS % (AUTO) 2 % (0-10); LYMPHOCYTES # (AUTO) 0.2 X 10^3 (1.0-4.0); LYMPHOCYTES % (AUTO) 6 % (12-44); MEAN CORPUSCULAR HEMOGLOBIN 31 PG (25-34); MEAN CORPUSCULAR HGB CONC 31 G/DL (32-36); MEAN CORPUSCULAR VOLUME 101 FL (80-99); MEAN PLATELET VOLUME 9.8 FL (7.4-10.4); MONOCYTES # (AUTO) 0.3 X 10^3 (0.0-1.0); MONOCYTES % (AUTO) 7 % (0-12); NEUTROPHILS % (AUTO) 85 % (42-75); PLATELET COUNT 398 10^3/uL (130-400); RED BLOOD COUNT 3.38 10^6/uL (4.35-5.85); RED CELL DISTRIBUTION WIDTH 17.6 % (10.0-14.5); WHITE BLOOD COUNT 3.6 10^3/uL (4.3-11.0)
[2016-11-26 09:35] LABS: CALCIUM 9.5 MG/DL (8.5-10.1); POTASSIUM 4.3 MMOL/L (3.6-5.0)
[2016-12-03 09:07] LABS: BASOPHILS % (AUTO) 0 % (0-10); EOSINOPHILS % (AUTO) 1 % (0-10); LYMPHOCYTES # (AUTO) 0.2 X 10^3 (1.0-4.0); LYMPHOCYTES % (AUTO) 5 % (12-44); MEAN CORPUSCULAR HEMOGLOBIN 31 PG (25-34); MEAN CORPUSCULAR HGB CONC 30 G/DL (32-36); MEAN CORPUSCULAR VOLUME 103 FL (80-99); MEAN PLATELET VOLUME 9.8 FL (7.4-10.4); MONOCYTES # (AUTO) 0.4 X 10^3 (0.0-1.0); MONOCYTES % (AUTO) 8 % (0-12); NEUTROPHILS # (AUTO) 3.8 X 10^3 (1.8-7.8); NEUTROPHILS % (AUTO) 86 % (42-75); PLATELET COUNT 388 10^3/uL (130-400); RED BLOOD COUNT 3.46 10^6/uL (4.35-5.85); RED CELL DISTRIBUTION WIDTH 17.9 % (10.0-14.5); WHITE BLOOD COUNT 4.5 10^3/uL (4.3-11.0)
[2016-12-03 09:28] LABS: ALBUMIN 3.8 GM/DL (3.2-4.5); BILIRUBIN,TOTAL 0.4 MG/DL (0.1-1.0); CALCIUM 9.6 MG/DL (8.5-10.1); CREATININE SERUM 1.13 MG/DL (0.60-1.30); MAGNESIUM 2.1 MG/DL (1.8-2.4); POTASSIUM 4.9 MMOL/L (3.6-5.0); TOTAL PROTEIN 6.8 GM/DL (6.4-8.2)
[~2016-12-26] VITALS: Ht 160 cm; Wt 49.0 kg
[~2016-12-26] MED LIST changes: +CARBOPLATIN 140 MG in D5W 50 ML IV(CANCER CTR) 50 ML IV SCH; +FAMOTIDINE 20MG/2ML IV (CANCER CTR) IV SCH; +HYDR2TAB6 PO; +LEVO500T2 PO; +MULT-10 PO; +NITR0.4T39 SL; +NORMAL SALINE IV SCH; +NS IV 1000 ML (CANCER CTR) IV SCH; +ONDA8TAB12 PO; +PACLITAXEL IV SCH; +PALONOSETRON 0.25 MG, DEXAMETHASONE 10 MG/NS 50 ML IVPB IV PRN; +PRD10T PO; +diphenhydrAMINE 25 MG TAB (BENADRYL) CANCER CENTER PO SCH; +diphenhydrAMINE 50 MG/ML INJ (CANCER CENTER) IV PRN
[2016-12-26 10:15] LABS: BASOPHILS % (AUTO) 0 % (0-10); EOSINOPHILS # (AUTO) 0.3 10^3/uL (0.0-0.3); EOSINOPHILS % (AUTO) 5 % (0-10); LYMPHOCYTES # (AUTO) 0.4 X 10^3 (1.0-4.0); LYMPHOCYTES % (AUTO) 6 % (12-44); MEAN CORPUSCULAR HEMOGLOBIN 32 PG (25-34); MEAN CORPUSCULAR HGB CONC 31 G/DL (32-36); MEAN CORPUSCULAR VOLUME 103 FL (80-99); MEAN PLATELET VOLUME 9.4 FL (7.4-10.4); MONOCYTES # (AUTO) 0.5 X 10^3 (0.0-1.0); MONOCYTES % (AUTO) 9 % (0-12); NEUTROPHILS # (AUTO) 4.7 X 10^3 (1.8-7.8); NEUTROPHILS % (AUTO) 80 % (42-75); PLATELET COUNT 336 10^3/uL (130-400); RED CELL DISTRIBUTION WIDTH 16.2 % (10.0-14.5); WHITE BLOOD COUNT 5.9 10^3/uL (4.3-11.0)
[2016-12-26 11:15] LABS: ALANINE AMINOTRANSFERASE 20 U/L (0-55); ALBUMIN 3.8 GM/DL (3.2-4.5); ANION GAP 10 MMOL/L (5-14); ASPARTATE AMINO TRANSFERASE 20 U/L (5-34); BILIRUBIN,TOTAL 0.4 MG/DL (0.1-1.0); BLOOD UREA NITROGEN 9 MG/DL (7-18); BUN/CREATININE RATIO 11; CALCIUM 9.8 MG/DL (8.5-10.1); CARBON DIOXIDE 37 MMOL/L (21-32); CHLORIDE 89 MMOL/L (98-107); GFR ESTIMATED > 60; GLUCOSE 134 MG/DL (70-105); MAGNESIUM 1.8 MG/DL (1.8-2.4); POTASSIUM 4.3 MMOL/L (3.6-5.0); SODIUM 136 MMOL/L (135-145)
== END | disposition home or self-care (01) ==
LOC: ONC 09-27 13:34
PROVIDERS: ATTEND Internal Medicine Hematology & Oncology
DX: M54.6 Pain in thoracic spine; I10 Essential (primary) hypertension; Z51.0 Encounter for antineoplastic radiation therapy; I25.10 Atherosclerotic heart disease of native coronary artery without angina pectoris; Z51.11 Encounter for antineoplastic chemotherapy; J44.9 Chronic obstructive pulmonary disease, unspecified; E07.9 Disorder of thyroid, unspecified; Z79.899 Other long term (current) drug therapy; C34.91 Malignant neoplasm of unspecified part of right bronchus or lung; E78.5 Hyperlipidemia, unspecified
CPT/HCPCS: 36415; 77290; 77295; 77300; 77307; 77334; 77336; 77417; 77470; 80048; 80053; 83735; 85025; 94060; 94640; 94726; 96375; 96413; 96417; 99213; 99214

== ENCOUNTER → 2017-01-22 | Outpatient (CLI) | payer MEDICARE, OTHER ==
[~2017-01-22] MED LIST changes: +BARIUM SUSPENSION 2.1% (VANILLA SILQ) 450 ML PO ONE; -CARBOPLATIN 140 MG in D5W 50 ML IV(CANCER CTR) 50 ML IV SCH; +CATHETER FLUSH 10 ML SYR IV PRN; -FAMOTIDINE 20MG/2ML IV (CANCER CTR) IV SCH; -HYDR2TAB6 PO; +IOHEXOL 350 MG/ML 100 ML (OMNIPAQUE 350) VIAL IV ONE; -LEVO500T2 PO; -MULT-10 PO; -NITR0.4T39 SL; -NORMAL SALINE IV SCH; +NS 100 ML (IVPB) BAG IV ONE; -NS IV 1000 ML (CANCER CTR) IV SCH; -ONDA8TAB12 PO; -PACLITAXEL IV SCH; -PALONOSETRON 0.25 MG, DEXAMETHASONE 10 MG/NS 50 ML IVPB IV PRN; -PRD10T PO; -diphenhydrAMINE 25 MG TAB (BENADRYL) CANCER CENTER PO SCH; -diphenhydrAMINE 50 MG/ML INJ (CANCER CENTER) IV PRN
--- NOTE | 2017-01-22 15:31 | Diagnostic Imaging Report ---
PROCEDURE: CT chest and abdomen with contrast. TECHNIQUE: Multiple contiguous axial images were obtained through the chest and abdomen after the administration of intravenous contrast. INDICATION: Lung cancer. COMPARISON: 09/25/2016 PET/CT and 09/04/2016 CTA chest. FINDINGS: CT chest: The previously seen mass along the posterior aspect of the right mainstem bronchus is near completely resolved with nonspecific curvilinear focal area of consolidation seen at this location. The adjacent infracarinal lymph node measuring 1.2 cm in size is again seen. There is unchanged atelectasis on the right middle lobe seen. There are no other areas suspicious for a mass or neoplastic nodule in the lungs with background advanced emphysema and areas of scarring most prominent in the left upper lobe seen. A right hilar lymph node measuring 1.1 cm is smaller compared to previous measurements of 1.6 cm. Other small pretracheal and left hilar lymph nodes about 1 cm in size are of questionable clinical significance. There is no pleural or pericardial effusion. The heart size is normal. The thoracic aorta is normal in caliber. Sternotomy wires with healed sternotomy are noted. The thoracic spine demonstrates degenerative changes and evidence of compression fractures which are seen on 09/04/2016 exam without significant change. CT abdomen: The liver, the gallbladder, the spleen, and the adrenal glands appear unremarkable. The right kidney has normal contrast enhancement and excretion with no hydronephrosis. The left kidney has poor enhancement and is atrophic with no significant excretion on the delayed phase images. Simple cyst measuring 1.5 cm is seen in the left kidney inferiorly and smaller other cysts are seen in the mid and upper left kidney. No fluid collection or soft tissue mass is identified. No lymphadenopathy in the abdomen is seen. The osseous structures appear to demonstrate compression fractures of L1 and L2 levels, new from 09/04/2016 exam without obvious underlying lesions. IMPRESSION: CT chest: 1. Near complete resolution of the mass previously seen abutting the posterior aspect of the right mainstem bronchus with minimal curvilinear nonspecific density remaining at this level. 2. Interval decrease in the size of the right hilar lymph node now measuring 1.1 cm. There is an unchanged 1.2 cm infracarinal lymph node also seen. Other borderline-sized lymph nodes in the left hilum and pretracheal region are of questionable significance. 3. Advanced emphysema. CT abdomen: 1. No evidence of metastasis. 2. New compression fractures of L1 and L2 when compared to the 09/04/2016. No obvious underlying metastasis. This could be osteoporosis related. 3. Atrophic, poorly functioning left kidney. Dictated by: Dictated on workstation # [id number]
--- NOTE | 2017-01-22 19:12 | Diagnostic Imaging Report ---
Whole body bone scan. Technique: After the intravenous administration of 26.4 mCi of Technetium 99m MDP, whole body delayed phase bone scan images were obtained with lateral views of the head and neck and the chest regions. INDICATION: Lung cancer. FINDINGS: There are intense areas of increased uptake seen within the proximal left humerus and involving vertebral bodies L1, L2, T11 and T9. These appear to relate to compression fracture seen on CT scan. No definitive associated underlying mass is seen by CT. Mild scattered foci of increased activity are seen in anterior ribs. There is asymmetric activity noted along the right SI joint region. There is right renal activity and atrophic left kidney demonstrates function. The urinary bladder appears asymmetric. IMPRESSION: 1. Intense areas of activity involving the lower thoracic spine, upper lumbar spine and the proximal left humerus appears to correlate with compression vertebral fractures and proximal left humerus fracture as seen on recent imaging with no obvious underlying masses. These could be osteoporotic. Minimal anterior rib activity could also be posttraumatic. 2. There is asymmetric intense increased activity around the right SI joint of uncertain etiology. This could potentially be metastatic or related to asymmetric arthritis. Further evaluation with CT scan or MRI of the pelvis is suggested. Dictated by: Dictated on workstation # [id number]
== END ==
LOC: CARD 10:44
PROVIDERS: ATTEND Internal Medicine Hematology & Oncology
DX: Z01.89 Encounter for other specified special examinations (principal); C34.31 Malignant neoplasm of lower lobe, right bronchus or lung
CPT/HCPCS: 71260; 74160; 78306

== ENCOUNTER → 2017-02-18 | Outpatient (CLI) | payer MEDICARE, OTHER ==
[~2017-02-18] MED LIST changes: -BARIUM SUSPENSION 2.1% (VANILLA SILQ) 450 ML PO ONE; -CATHETER FLUSH 10 ML SYR IV PRN; +HYDR2TAB6 PO; -IOHEXOL 350 MG/ML 100 ML (OMNIPAQUE 350) VIAL IV ONE; +LEVO500T2 PO; +MULT-10 PO; +NITR0.4T39 SL; -NS 100 ML (IVPB) BAG IV ONE; +ONDA8TAB12 PO; +PRD10T PO
[2017-02-18 12:56] LABS: BASOPHILS % (AUTO) 0 % (0-10); EOSINOPHILS # (AUTO) 0.2 10^3/uL (0.0-0.3); EOSINOPHILS % (AUTO) 2 % (0-10); LYMPHOCYTES # (AUTO) 0.4 X 10^3 (1.0-4.0); LYMPHOCYTES % (AUTO) 5 % (12-44); MEAN CORPUSCULAR HEMOGLOBIN 31 PG (25-34); MEAN CORPUSCULAR HGB CONC 30 G/DL (32-36); MEAN CORPUSCULAR VOLUME 104 FL (80-99); MEAN PLATELET VOLUME 10.2 FL (7.4-10.4); MONOCYTES # (AUTO) 0.6 X 10^3 (0.0-1.0); MONOCYTES % (AUTO) 8 % (0-12); NEUTROPHILS # (AUTO) 6.7 X 10^3 (1.8-7.8); NEUTROPHILS % (AUTO) 85 % (42-75); PLATELET COUNT 219 10^3/uL (130-400); RED BLOOD COUNT 3.67 10^6/uL (4.35-5.85); RED CELL DISTRIBUTION WIDTH 13.7 % (10.0-14.5); WHITE BLOOD COUNT 7.9 10^3/uL (4.3-11.0)
--- NOTE | 2017-02-18 13:14 | Diagnostic Imaging Report ---
PA and lateral views of the chest. INDICATION: Difficulty breathing. FINDINGS: The lungs are hyperinflated with mild prominence of the interstitial markings seen. Sutures in the left upper lobe are noted. There are surgical clips in the mediastinum and sternotomy wires seen. The heart size is normal. No effusion or pneumothorax. The mediastinum and romulo appear unremarkable. IMPRESSION: COPD. Dictated by: Dictated on workstation # [id number]
[2017-02-18 13:22] LABS: BAND NEUTROPHILS 2 %; EOSINOPHILS % (MANUAL) 2 %; LYMPHOCYTES % (MANUAL) 5 %; NEUTROPHILS % (MANUAL) 86 %
== END ==
LOC: RAD 12:31
PROVIDERS: ATTEND Family Medicine
DX: J44.9 Chronic obstructive pulmonary disease, unspecified (principal)
CPT/HCPCS: 36415; 71020; 85007; 85027

== ENCOUNTER → 2017-02-21 | Outpatient (CLI) | payer MEDICARE, OTHER ==
--- NOTE | 2017-02-21 22:09 | Diagnostic Imaging Report ---
EXAMINATION: DEXA scan. INDICATION: Osteopenia TECHNIQUE: Bone mineral density estimated based on dual energy radiography over the lumbar spine and femoral necks, was performed. FINDINGS: The lumbar spine T-score is -1.6. T score over the left femoral neck is -3.8 and on the right side is -2.9. IMPRESSION: Osteoporosis. Dictated by: Dictated on workstation # [id number]
== END ==
LOC: RAD 09:37
PROVIDERS: ATTEND Internal Medicine Hematology & Oncology
DX: M81.0 Age-related osteoporosis without current pathological fracture (principal)
CPT/HCPCS: 77080; 87070; 87077; 87186; 87205

== ENCOUNTER 2017-03-06 10:43 | Outpatient (RCR) | payer MEDICARE, OTHER ==
[2017-01-25 10:25] LABS: BASOPHILS % (AUTO) 1 % (0-10); EOSINOPHILS # (AUTO) 0.3 10^3/uL (0.0-0.3); EOSINOPHILS % (AUTO) 4 % (0-10); HEMATOCRIT 37 % (35-52); HEMOGLOBIN 10.8 G/DL (11.5-16.0); LYMPHOCYTES # (AUTO) 0.5 X 10^3 (1.0-4.0); LYMPHOCYTES % (AUTO) 8 % (12-44); MEAN CORPUSCULAR HEMOGLOBIN 31 PG (25-34); MEAN CORPUSCULAR HGB CONC 29 G/DL (32-36); MEAN CORPUSCULAR VOLUME 107 FL (80-99); MONOCYTES # (AUTO) 0.9 X 10^3 (0.0-1.0); MONOCYTES % (AUTO) 13 % (0-12); NEUTROPHILS # (AUTO) 4.7 X 10^3 (1.8-7.8); NEUTROPHILS % (AUTO) 74 % (42-75); PLATELET COUNT 247 10^3/uL (130-400); RED BLOOD COUNT 3.48 10^6/uL (4.35-5.85); RED CELL DISTRIBUTION WIDTH 14.5 % (10.0-14.5); WHITE BLOOD COUNT 6.3 10^3/uL (4.3-11.0)
[2017-01-25 10:45] LABS: ALANINE AMINOTRANSFERASE 19 U/L (0-55); ALBUMIN 3.7 GM/DL (3.2-4.5); ALKALINE PHOSPHATASE 89 U/L (40-136); BILIRUBIN,TOTAL 0.3 MG/DL (0.1-1.0); BUN/CREATININE RATIO 11; CALCIUM 9.6 MG/DL (8.5-10.1); CARBON DIOXIDE 41 MMOL/L (21-32); CHLORIDE 91 MMOL/L (98-107); CREATININE SERUM 0.83 MG/DL (0.60-1.30); GFR ESTIMATED > 60; GLUCOSE 272 MG/DL (70-105); POTASSIUM 4.6 MMOL/L (3.6-5.0); SODIUM 140 MMOL/L (135-145); TOTAL PROTEIN 6.6 GM/DL (6.4-8.2)
[~2017-03-06 10:43] MED LIST changes: +ACHD5005 PO; -HYDR-3812 PO; +METO50TA15 PO; -METO50TA2 PO
[2017-03-06 11:25] LABS: BASOPHILS % (AUTO) 0 % (0-10); EOSINOPHILS # (AUTO) 0.1 10^3/uL (0.0-0.3); EOSINOPHILS % (AUTO) 2 % (0-10); HEMATOCRIT 38 % (35-52); HEMOGLOBIN 11.5 G/DL (11.5-16.0); LYMPHOCYTES # (AUTO) 0.5 X 10^3 (1.0-4.0); LYMPHOCYTES % (AUTO) 7 % (12-44); MEAN CORPUSCULAR HEMOGLOBIN 31 PG (25-34); MEAN CORPUSCULAR HGB CONC 30 G/DL (32-36); MEAN CORPUSCULAR VOLUME 104 FL (80-99); MEAN PLATELET VOLUME 9.4 FL (7.4-10.4); MONOCYTES # (AUTO) 0.7 X 10^3 (0.0-1.0); MONOCYTES % (AUTO) 11 % (0-12); NEUTROPHILS # (AUTO) 5.4 X 10^3 (1.8-7.8); NEUTROPHILS % (AUTO) 80 % (42-75); PLATELET COUNT 281 10^3/uL (130-400); RED CELL DISTRIBUTION WIDTH 13.6 % (10.0-14.5); WHITE BLOOD COUNT 6.8 10^3/uL (4.3-11.0)
[2017-03-06 11:45] LABS: ALANINE AMINOTRANSFERASE 17 U/L (0-55); ALBUMIN 3.8 GM/DL (3.2-4.5); ALKALINE PHOSPHATASE 77 U/L (40-136); BILIRUBIN,TOTAL 0.5 MG/DL (0.1-1.0); BUN/CREATININE RATIO 17; CALCIUM 9.8 MG/DL (8.5-10.1); CARBON DIOXIDE 45 MMOL/L (21-32); CHLORIDE 90 MMOL/L (98-107); CREATININE SERUM 0.76 MG/DL (0.60-1.30); GFR ESTIMATED > 60; GLUCOSE 136 MG/DL (70-105); POTASSIUM 4.4 MMOL/L (3.6-5.0); SODIUM 141 MMOL/L (135-145); TOTAL PROTEIN 6.8 GM/DL (6.4-8.2)
--- NOTE | 2017-03-06 13:51 | Diagnostic Imaging Report ---
INDICATION: Lung cancer EXAMINATION: PA and lateral chest There are postop changes from CABG surgery. There is a nodular opacity at the left apex that was present on study from 02/18/2017 . There are no infiltrates, effusions or pneumothoraces. IMPRESSION: Postsurgical changes left upper lobe with residual nodular opacity/scar. No acute abnormalities seen. Dictated by: Dictated on workstation # [id number]
[2017-03-22] MEDS ORDERED: CIPR500T4 PO (11:27)
[2017-03-22] MEDS ORDERED: ALEN70TA47 PO (11:27)
[2017-03-22] MEDS ORDERED: CALC117719 PO (11:46)
[2017-03-22] MEDS ORDERED: CALC-697 PO (11:46)
[2017-03-22] MEDS ORDERED: ASPI-983 PO (11:46)
[2017-03-22] MEDS ORDERED: ACET-790 PO (11:46)
[2017-03-28] MEDS ORDERED: DILT240C63 PO (09:19)
[2017-03-28] MEDS ORDERED: APIX2.5T PO (09:19)
== END 2017-04-25 | disposition home or self-care (01) ==
LOC: ONC 10:43
PROVIDERS: ATTEND Internal Medicine Hematology & Oncology
DX: C34.31 Malignant neoplasm of lower lobe, right bronchus or lung (principal)
CPT/HCPCS: 36415; 71020; 80053; 85025; 99213

== ENCOUNTER → 2017-03-19 | Outpatient (CLI) | payer MEDICARE, OTHER ==
[~2017-03-19] MED LIST changes: -ACHD5005 PO; +HYDR-3812 PO
[2017-03-19 16:40] LABS: RED BLOOD COUNT 3.52 10^6/uL (4.35-5.85); RED CELL DISTRIBUTION WIDTH 13.3 % (10.0-14.5); WHITE BLOOD COUNT 6.3 10^3/uL (4.3-11.0)
[2017-03-19 17:09] LABS: ANION GAP 10 MMOL/L (5-14); BLOOD UREA NITROGEN 13 MG/DL (7-18); BUN/CREATININE RATIO 18; CALCIUM 9.6 MG/DL (8.5-10.1); CARBON DIOXIDE 39 MMOL/L (21-32); CHLORIDE 88 MMOL/L (98-107); CREATININE SERUM 0.72 MG/DL (0.60-1.30); GFR ESTIMATED > 60; GLUCOSE 148 MG/DL (70-105); POTASSIUM 4.7 MMOL/L (3.6-5.0); SODIUM 137 MMOL/L (135-145)
--- NOTE | 2017-03-19 17:41 | Diagnostic Imaging Report ---
INDICATION: Cough. Shortness of air. COMPARISON: 03/06/2017 FINDINGS: Frontal and lateral radiographic views of the chest were obtained and show normal cardiac silhouette and pulmonary vasculature. Lungs show diffuse coarse prominence of the interstitium. This may be a chronic finding. There is no new focal alveolar consolidation, large effusion, nor pneumothorax. Lungs are otherwise hyperinflated. Sternotomy wires and calcified aortic atherosclerosis are noted. Fracture deformity of proximal left humerus is also again noted. IMPRESSION: 1. No evidence of failure or focal infiltrate. 2. Background of COPD. Dictated by: Dictated on workstation # [id number]
== END ==
LOC: RAD 15:06
PROVIDERS: ATTEND Family Medicine
DX: J44.0 Chronic obstructive pulmonary disease with (acute) lower respiratory infection (principal); J18.9 Pneumonia, unspecified organism
CPT/HCPCS: 36415; 71020; 80048; 85027; 87070; 87205

== ENCOUNTER 2017-03-22 07:21 | Inpatient (IN) | payer MEDICARE, OTHER ==
[~2017-03-22] VITALS: Ht 157.5 cm; Wt 50.4 kg
[2017-03-22] MEDS ORDERED: methylPREDNISolone 125 MG (Solu-MEDROL) VIAL IVP ONE (07:45)
[2017-03-22 07:48] LABS: BASOPHILS % (AUTO) 0 % (0-10); EOSINOPHILS # (AUTO) 0.1 10^3/uL (0.0-0.3); EOSINOPHILS % (AUTO) 2 % (0-10); LYMPHOCYTES # (AUTO) 0.5 X 10^3 (1.0-4.0); LYMPHOCYTES % (AUTO) 8 % (12-44); MEAN CORPUSCULAR HEMOGLOBIN 31 PG (25-34); MEAN CORPUSCULAR HGB CONC 29 G/DL (32-36); MEAN CORPUSCULAR VOLUME 106 FL (80-99); MEAN PLATELET VOLUME 10.6 FL (7.4-10.4); MONOCYTES # (AUTO) 0.8 X 10^3 (0.0-1.0); MONOCYTES % (AUTO) 13 % (0-12); NEUTROPHILS # (AUTO) 4.7 X 10^3 (1.8-7.8); NEUTROPHILS % (AUTO) 77 % (42-75); PLATELET COUNT 246 10^3/uL (130-400); RED BLOOD COUNT 3.31 10^6/uL (4.35-5.85); RED CELL DISTRIBUTION WIDTH 12.9 % (10.0-14.5); WHITE BLOOD COUNT 6.1 10^3/uL (4.3-11.0)
--- NOTE | 2017-03-22 08:00 | ED Cough/URI ---
General Chief Complaint: Respiratory Problems Stated Complaint: SOA History of Present Illness Time seen by provider: 07:55 Initial Comments This 72-year-old white female presents with a history of respiratory distress last 48 hours. The patient has a history of previous lung cancer and partial pneumonectomy. The patient has had productive sputum with her present illness. Patient has had previous similar presentations from exacerbation of her COPD. Patient was started on Levaquin in the last day. She is under the care of Dr. Mccauley. The patient's sputum had demonstrated Pseudomonas collected on March 19. The sensitivities included the quinolones and tobramycin. The patient has had multiple stents to her heart in the past. The patient has suffered from compression fractures. Allergies and Home Medications Allergies Coded Allergies: Penicillins (Verified Allergy, Severe, ANAPHYLAXIS, 09/04/16) hydrochlorothiazide (Verified Allergy, Intermediate, RASH, 01/29/17) penicillin G (Verified Allergy, Unknown, 09/04/16) Home Medications Acetaminophen with Codeine 1 Each Tablet, 1 TAB PO HS, (Reported) Albuterol Sulfate 2.5 Mg/3 Ml Vial.neb, 2.5 MG NEB 5XD PRN for SHORTNESS OF BREATH, (Reported) Atorvastatin Calcium 40 Mg Tablet, 40 MG PO HS, (Reported) Budesonide/Formoterol Fumarate 10.2 Gm Hfa.aer.ad, 2 PUFF IH BID, (Reported) Cetirizine HCl 10 Mg Tablet, 10 MG PO HS, (Reported) Furosemide 20 Mg Tablet, 20 MG PO 1300, (Reported) LAST FILLED #90 6--17 Hydromorphone HCl 2 Mg Tablet, 2 MG PO Q4H PRN for PAIN-SEVERE, (Reported) Levofloxacin 500 Mg Tablet, 500 MG PO DAILY for 5 Days Prescribed by: KAYLEY WATSON on 01/31/17 1131 Levothyroxine Sodium 50 Mcg Tablet, 50 MCG PO HS, (Reported) Lisinopril 10 Mg Tablet, 10 MG PO DAILY, (Reported) Metoprolol Tartrate 50 Mg Tablet, 50 MG PO BID, (Reported) Multivits,Stress Formula 1 Each Tablet, 1 TAB PO DAILY, (Reported) Nitroglycerin 0.4 Mg Tab.subl, 0.4 MG SL UD PRN for CHEST PAIN, (Reported) Ondansetron HCl 8 Mg Tablet, 8 MG PO Q8H PRN for NAUSEA/VOMITING-1ST LINE, ( Reported) Pantoprazole Sodium 40 Mg Tablet.dr, 40 MG PO DAILY, (Reported) Prednisone 10 Mg Tab, 10 MG PO UD, #20 Prescribed by: KAYLEY WATSON on 01/31/17 1131 Promethazine HCl/Codeine 118 Ml Syrup, 10 ML PO TID PRN for COUGH, (Reported) Tiotropium [place] 4 Gm Mist.inhal, 2 PUFF IH DAILY, (Reported) Ubidecarenone 200 Mg Capsule, 200 MG PO HS, (Reported) Constitutional: see HPI, No chills EENTM: No ear discharge, No vision loss Respiratory: see HPI, cough, dyspnea on exertion Cardiovascular: no symptoms reported Gastrointestinal: No abdominal pain, No nausea, No vomiting Genitourinary: No decreased output : No Musculoskeletal: back pain Skin: No change in color Psychiatric/Neurological: Denies Anxiety, Denies Depressed Hematologic/Lymphatic: Denies Anemia Immunological/Allergic: denies food allergy Past Fqjltor-Zbbyab-Alxyth Hx Patient Social History Type Used: Cigarettes Former Smoker, Quit: Jan 28, 2013 Recent Hopitalizations: Yes Immunizations Up To Date Tetanus Booster (TDap): Less than 5yrs PED Vaccines UTD: Yes Date of Pneumonia Vaccine: Jan 07, 2016 Date of Influenza Vaccine: Jan 14, 2017 Seasonal Allergies Seasonal Allergies: Yes Surgeries History of Surgeries: Yes (CARDIAC CATH) Surgeries: CABG, Lobectomy, Vascular Surgery Respiratory History of Respiratory Disorde: Yes Respiratory Disorders: COPD Currently Using CPAP: No Currently Using BIPAP: No Cardiovascular History of Cardiac Disorders: Yes (cabbage with stents) Cardiac Disorders: Coronary Artery Disease, Hypertension, Peripheral Vascular Neurological History of Neurological Disord: Yes (ANXIETY) Reproductive System Hx Reproductive Disorders: Yes (26 YRS. 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 Disorders: Denies Genitourinary History of Genitourinary Disor: No Gastrointestinal History of Gastrointestinal Di: Yes ("BUTTERFLY" HERNIA) Musculoskeletal History of Musculoskeletal Dis: Yes (MAYBE MILD ARTHRITIS) Endocrine History of Endocrine Disorders: Yes HEENT History of HEENT Disorders: Yes HEENT Disorders: Cataract Loss of Vision: Denies Hearing Impairment: Denies Cancer History of Cancer: Yes Cancer: Lung Psychosocial History of Psychiatric Problem: No Integumentary History of Skin or Integumenta: No Blood Transfusions History of Blood Disorders: No Adverse Reaction to a Blood Tr: No Reviewed Nursing Assessment Reviewed/Agree w Nursing PMH: Yes Family Medical History Family Medial History: Chest pain 09 SISTER Congestive heart failure G-MA Family history: Cardiovascular disease 03 FATHER (68) 09 SISTER Family history: Hypertension 03 FATHER 09 SISTER G-MA Stroke Physical Exam Vital Signs Capillary Refill : General Appearance: mild distress Eyes: Bilateral Eye Normal Inspection HEENT: normal ENT inspection Neck: non-tender Respiratory: decreased breath sounds Cardiovascular: tachycardia Gastrointestinal: non tender, soft Extremities: normal range of motion Neurologic/Psychiatric: no motor/sensory deficits, alert, normal mood/affect Skin: normal color, warm/dry Focused Exam Evaluation Lactate Level Laboratory Tests 03/22/17 07:30: Lactic Acid Level Laboratory Tests Test 03/22/17 07:30 Progress/Results/Core Measures Suspected Sepsis SIRS Temperature: Pulse: Respiratory Rate: Laboratory Tests 03/22/17 07:30: White Blood Count 6.1 Blood Pressure / Mean: Laboratory Tests 03/22/17 07:30: Laboratory Tests 03/22/17 07:30: Platelet Count 246 Results/Orders Lab Results Laboratory Tests Test 03/22/17 07:30 Range/Units White Blood Count 6.1 4.3-11.0 10^3/uL Red Blood Count 3.31 L 4.35-5.85 10^6/uL Hemoglobin 10.1 L 11.5-16.0 G/DL Hematocrit 35 35-52 % Mean Corpuscular Volume 106 H 80-99 FL Mean Corpuscular Hemoglobin 31 25-34 PG Mean Corpuscular Hemoglobin Concent 29 L 32-36 G/DL Red Cell Distribution Width 12.9 10.0-14.5 % Platelet Count 246 130-400 10^3/uL Mean Platelet Volume 10.6 H 7.4-10.4 FL Neutrophils (%) (Auto) 77 H 42-75 % Lymphocytes (%) (Auto) 8 L 12-44 % Monocytes (%) (Auto) 13 H 0-12 % Eosinophils (%) (Auto) 2 0-10 % Basophils (%) (Auto) 0 0-10 % Neutrophils # (Auto) 4.7 1.8-7.8 X 10^3 Lymphocytes # (Auto) 0.5 L 1.0-4.0 X 10^3 Monocytes # (Auto) 0.8 0.0-1.0 X 10^3 Eosinophils # (Auto) 0.1 0.0-0.3 10^3/uL Basophils # (Auto) 0.0 0.0-0.1 10^3/uL My Orders Orders - PATY GREEN MD Cbc With Automated Diff (03/22/17 07:37) Comprehensive Metabolic Panel (03/22/17 07:37) BNP (03/22/17 07:37) Blood Culture (03/22/17 07:37) Chest 1 View, Ap/Pa Only (03/22/17 07:37) Fibrin Degradation Products (03/22/17 07:37) Ekg Tracing (03/22/17 07:37) O2 (03/22/17 07:37) Saline Lock/Iv-Start (03/22/17 07:37) Sputum Culture (03/22/17 07:37) Monitor-Rhythm Ecg Trace Only (03/22/17 07:37) Lactic Acid Analyzer (03/22/17 07:37) Methylprednisolone Sod Succ (Solu-Medrol (03/22/17 07:45) Medications Given in ED Current Medications Medications Dose Ordered Sig/Imelda Route Start Time Stop Time Status Last Admin Dose Admin Methylprednisolone Sodium Succinate 125 mg ONCE ONCE IVP 03/22/17 07:45 03/22/17 07:46 DC 03/22/17 07:51 125 MG Vital Signs/I&O Capillary Refill : Progress Note : Time: 08:06 Progress Note I discussed patient's findings with Dr. Mccauley who is kind enough to admit the patient. We obtained appropriate lab and radiographic studies. The patient was improved with the Ventolin treatments provided by EMS in route. These were continued in the emergency department. With supplemental oxygen the patient's sat was 100 percent. Next Review of the patient's sputum sensitivities were done. After discussion with Dr. Mccauley and the pharmacist the patient was continued on Levaquin and the pharmacy will dose the patient's tobramycin. The patient was much improved at this time admission. Departure Communication (Admissions) Time/Spoke to Admitting Phy: 08:[address] Mccauley. Impression Impression: Primary Impression: Acute exacerbation of chronic obstructive pulmonary disease (COPD) Disposition: ADMITTED INPATIENT Condition: Improved Admissions Decision to Admit Reason: Admit from ER (General) Decision to Admit/Date: Mar 22, 2017 Time/Decision to Admit Time: 08:09 Departure-Patient Inst. Referrals: WEST MCCAULEY DO (PCP/Family) Primary Care Physician PATY GREEN MD Mar 22, 2017 08:00
[2017-03-22 08:02] LABS: ALANINE AMINOTRANSFERASE 26 U/L (0-55); ALBUMIN 3.7 GM/DL (3.2-4.5); ANION GAP 8 MMOL/L (5-14); ASPARTATE AMINO TRANSFERASE 26 U/L (5-34); BILIRUBIN,TOTAL 0.3 MG/DL (0.1-1.0); BLOOD UREA NITROGEN 12 MG/DL (7-18); BUN/CREATININE RATIO 17; CALCIUM 9.9 MG/DL (8.5-10.1); CARBON DIOXIDE 45 MMOL/L (21-32); CHLORIDE 87 MMOL/L (98-107); GFR ESTIMATED > 60; GLUCOSE 168 MG/DL (70-105); POTASSIUM 4.8 MMOL/L (3.6-5.0); SODIUM 140 MMOL/L (135-145); TOTAL PROTEIN 6.8 GM/DL (6.4-8.2)
--- OUTSIDE RECORDS SUMMARY | 2017-03-22 08:09 | XMS REPORT | Continuity of Care Document ---
Author Author [facility] Organization [facility] Address Unknown Phone Unavailable Allergies Active Description Code Type Severity Reaction Onset Reported/Identified Relationship to Patient Clinical Status Yes Penicillins [id number] Drug Allergy Severe ANAPHYLAXIS 09/04/2016 Yes hydrochlorothiazide [id number] Drug Allergy Unknown N/A 09/04/2016 Yes levofloxacin [id number] Drug Allergy Unknown N/A 09/04/2016 Yes penicillin G [id number] Drug Allergy Unknown N/A 09/04/2016 Yes hydrochlorothiazide [id number] Drug Allergy Moderate RASH 01/29/2017 Yes levofloxacin [id number] Drug Allergy Mild RASH 01/29/2017 Medications There is no data. Problems Date Dx Coded Attending Type Code Diagnosis Diagnosed By 02/24/2013 JENNY CRAVEN FACC, [facility] CCDS Ot 305.1 TOBACCO USE DISORDER 02/24/2013 JENNY CRAVEN FACC, [facility] CCDS Ot 401.9 HYPERTENSION NOS 02/24/2013 JENNY CRAVEN FACC, [facility] CCDS Ot 414.01 CORONARY ATHEROSCLEROSIS OF [place] CORON 02/24/2013 JENNY CRAVEN FACC, [facility] CCDS Ot 414.4 CORONARY ATHEROSCLEROSIS DUE TO [place] 02/24/2013 JENNY CRAVEN FACC, [facility] CCDS Ot 496 CHR AIRWAY OBSTRUCT NEC 02/24/2013 JENNY CRAVEN FACC, [facility] CCDS Ot V58.69 OT MED,LT,CURRENT USE 04/14/2013 WEST MCCAULEY DO Ot 414.00 CORON ATHEROSCLER NOS TYPE VESSEL, NATIV 04/14/2013 WEST MCCAULEY DO Ot 428.0 CONGESTIVE HEART FAILURE NOS 04/14/2013 WEST MCCAULEY DO Ot 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 04/14/2013 WEST MCCAULEY DO Ot 491.21 OBSTR CHRONIC BRONCHITIS, W (ACUTE) EXAC 04/14/2013 WEST MCCAULEY DO Ot 493.20 CHRONIC OBSTRUCTIVE ASTHMA, NOS 04/14/2013 PARISA QUINTANILLA WEST Dominguez Ot 518.0 PULMONARY COLLAPSE 04/14/2013 PARISA QUINTANILLAWEST Ot 518.84 ACUTE AND CHRONIC RESPIRATORY FAILURE 04/14/2013 PARISA QUINTANILLAWEST Ot V15.82 HISTORY OF TOBACCO USE 04/14/2013 PARISA QUINTANILLAWEST Ot V45.76 ACQRD ABSENCE OF LUNG 04/14/2013 PARISA QUINTANILLAWEST Ot V45.81 AORTOCORONARY BYPASS 04/14/2013 PARISA QUINTANILLAWEST Ot V45.89 POSTSURGICAL STATES NEC 04/22/2013 PARISA QUINTANILLAWEST Ot 272.4 HYPERLIPIDEMIA NEC/NOS 04/22/2013 PARISA QUINTANILLAWEST Ot 401.9 HYPERTENSION NOS 04/22/2013 PARISA QUINTANILLAWEST Ot 414.00 CORON ATHEROSCLER NOS TYPE VESSEL, NATIV 04/22/2013 PARISA QUINTANILLAWEST Ot 427.31 ATRIAL FIBRILLATION 04/22/2013 PARISA QUINTANILLAWEST Ot 428.0 CONGESTIVE HEART FAILURE NOS 04/22/2013 PARISA QUINTANILLAWEST Ot 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 04/22/2013 PARISA QUINTANILLAWEST Ot 491.21 OBSTR CHRONIC BRONCHITIS, W (ACUTE) EXAC 04/22/2013 PARISA QUINTANILLAWEST Ot 518.0 PULMONARY COLLAPSE 04/22/2013 PARISA QUINTANILLAWEST Ot 518.84 ACUTE AND CHRONIC RESPIRATORY FAILURE 04/22/2013 PARISA QUINTANILLAWEST Ot 790.29 OTHER ABNORMAL GLUCOSE 04/22/2013 PARISA QUINTANILLAWEST Ot V15.82 HISTORY OF TOBACCO USE 04/22/2013 PARISA QUINTANILLAWEST Ot V45.81 AORTOCORONARY BYPASS 11/03/2013 JENNY CRAVEN FACC, [facility] FACP CCDS Ot V45.81 AORTOCORONARY BYPASS 11/03/2013 JENNY CRAVEN FACC, ALI FACP CCDS Ot V57.89 REHABILITATION PROC NEC 11/03/2013 JENNY CRAVEN FACC, ALI FACP CCDS Ot V58.73 AFTERCARE POST SURGERY CIRULATORY SYSTEM 11/09/2013 JENNY CRAVEN FACC, ALI FACP CCDS Ot V45.81 AORTOCORONARY BYPASS 11/09/2013 JENNY CRAVEN FACC, ALI FACP CCDS Ot V57.89 REHABILITATION PROC NEC 11/09/2013 JENNY CRAVEN FACC, NORMA FACP CCDS Ot V58.73 AFTERCARE POST SURGERY CIRULATORY SYSTEM 03/16/2014 BAIMA, LEONA L ENGINEERING ILLUSTRATOR Ot 272.4 03/16/2014 BAIMA, LEONA L ENGINEERING ILLUSTRATOR Ot 401.9 03/16/2014 BAIMA, LEONA L ENGINEERING ILLUSTRATOR Ot 414.00 03/16/2014 BAIMA, LEONA L ENGINEERING ILLUSTRATOR Ot 496 03/16/2014 BAIMA, LEONA L ENGINEERING ILLUSTRATOR Ot V45.81 03/31/2014 BAIMA, LEONA L ENGINEERING ILLUSTRATOR Ot 272.4 HYPERLIPIDEMIA NEC/NOS 03/31/2014 BAIMA, LEONA L ENGINEERING ILLUSTRATOR Ot 401.9 HYPERTENSION NOS 03/31/2014 BAIMA, LEONA L ENGINEERING ILLUSTRATOR Ot 414.00 CORON ATHEROSCLER NOS TYPE VESSEL, NATIV 03/31/2014 BAIMA, LEONA L ENGINEERING ILLUSTRATOR Ot 496 CHR AIRWAY OBSTRUCT NEC 03/31/2014 BAIMA, LEONA L ENGINEERING ILLUSTRATOR Ot V45.81 AORTOCORONARY BYPASS 04/20/2014 BAIMA, LEONA L ENGINEERING ILLUSTRATOR Ot 272.4 04/20/2014 BAIMA, LEONA L ENGINEERING ILLUSTRATOR Ot 401.9 04/20/2014 BAIMA, LEONA L ENGINEERING ILLUSTRATOR Ot 414.00 04/20/2014 BAIMA, LEONA L ENGINEERING ILLUSTRATOR Ot 496 04/20/2014 BAIMA, LEONA L ENGINEERING ILLUSTRATOR Ot V45.81 04/21/2014 BAIMA, LEONA L ENGINEERING ILLUSTRATOR Ot 272.4 04/21/2014 BAIMA, LEONA L ENGINEERING ILLUSTRATOR Ot 401.9 04/21/2014 BAIMA, LEONA L ENGINEERING ILLUSTRATOR Ot 414.00 04/21/2014 BAIMA, LEONA L ENGINEERING ILLUSTRATOR Ot 496 04/21/2014 BAIMA, LEONA L ENGINEERING ILLUSTRATOR Ot V45.81 06/02/2014 BAIMA, LEONA L ENGINEERING ILLUSTRATOR Ot 272.4 06/02/2014 BAIMA, LEONA L ENGINEERING ILLUSTRATOR Ot 401.9 06/02/2014 BAIMA, LEONA L ENGINEERING ILLUSTRATOR Ot 414.00 06/02/2014 BAIMA, LEONA L ENGINEERING ILLUSTRATOR Ot 496 06/02/2014 BAIMA, LEONA L ENGINEERING ILLUSTRATOR Ot V45.81 07/19/2014 BAIMA, LEONA L ENGINEERING ILLUSTRATOR Ot 272.4 HYPERLIPIDEMIA NEC/NOS 07/19/2014 BAIMA, LEONA L ENGINEERING ILLUSTRATOR Ot 401.9 HYPERTENSION NOS 07/19/2014 BAIMA, LEONA L ENGINEERING ILLUSTRATOR Ot 414.00 CORON ATHEROSCLER NOS TYPE VESSEL, NATIV 07/19/2014 BAIMA, LEONA L ENGINEERING ILLUSTRATOR Ot 496 CHR AIRWAY OBSTRUCT NEC 07/19/2014 BAIMILADY, LEONA L ENGINEERING ILLUSTRATOR Ot V45.81 AORTOCORONARY BYPASS 10/19/2014 ZHEN BECKER DOCK CLERK Ot 836.2 TEAR MENISCUS NEC-CURREN 10/19/2014 ZHEN BECKER DOCK CLERK Ot 959.7 LOWER LEG INJURY NOS 10/19/2014 ZHEN BECKER DOCK CLERK Ot E000.8 OTHER EXTERNAL CAUSE STATUS 10/19/2014 ZHEN BECKER DOCK CLERK Ot E849.0 ACCIDENT IN HOME 10/19/2014 ZHEN BECKER DOCK CLERK Ot E885.9 FALL FROM SLIPPING, TRIPPING, OR STUMBLI 01/27/2015 SANKET, LEONA L ENGINEERING ILLUSTRATOR Ot 272.4 01/27/2015 BAIMA, LEONA L ENGINEERING ILLUSTRATOR Ot 401.9 01/27/2015 BAIMA, LEONA L ENGINEERING ILLUSTRATOR Ot 414.00 01/27/2015 BAIMA, LEONA L ENGINEERING ILLUSTRATOR Ot 433.10 01/27/2015 BAIMA, LEONA L ENGINEERING ILLUSTRATOR Ot 496 01/27/2015 BAIMA, LEONA L ENGINEERING ILLUSTRATOR Ot V45.81 02/14/2015 BAIMA, LEONA L ENGINEERING ILLUSTRATOR Ot 272.4 02/14/2015 BAIMA, LEONA L ENGINEERING ILLUSTRATOR Ot 401.9 02/14/2015 BAIMA, LEONA L ENGINEERING ILLUSTRATOR Ot 414.00 02/14/2015 BAIMA, LEONA L ENGINEERING ILLUSTRATOR Ot 433.10 02/14/2015 BAIMA, LEONA L ENGINEERING ILLUSTRATOR Ot 496 02/14/2015 SANKET, LEONA L ENGINEERING ILLUSTRATOR Ot V45.81 04/07/2015 WE[place] M[place]AU[place] DO Ot J44.9 04/07/2015 WE[place] M[place] DO Ot R05 04/07/2015 WE[place] M[place] DO Ot R06.2 04/07/2015 WE[place] M[place] DO Ot Z99.81 04/26/2015 WE[place] M[place] DO Ot J44.9 04/26/2015 GELLENDER DO, WEST Dominguez Ot R05 04/26/2015 GELLENDER DO, WEST Dominguez Ot R06.2 04/26/2015 GELLENDER DO, WEST Dominguez Ot Z99.81 06/28/2015 GELLENDER DO, WEST Dominguez Ot J44.9 06/28/2015 GELLENDER DO, WEST Dominguez Ot R05 07/13/2015 JENNY CRAVEN FACC, ALI FACP CCDS Ot E03.9 HYPOTHYROIDISM, UNSPECIFIED 07/13/2015 JENNY CRAVEN FACC, ALI FACP CCDS Ot F17.290 NICOTINE DEPENDENCE, OTHER TOBACCO PRODU 07/13/2015 JENNY CRAVEN FACC, ALI FACP CCDS Ot I10 ESSENTIAL (PRIMARY) HYPERTENSION 07/13/2015 JENNY CRAVEN FACC, ALI FACP CCDS Ot I25.10 ATHSCL HEART DISEASE OF [place] CORONARY 07/13/2015 JENNY CRAVEN FACC, ALI FACP CCDS Ot J44.9 CHRONIC OBSTRUCTIVE PULMONARY DISEASE, U 07/13/2015 JENNY CRAVEN FACC, ALI FACP CCDS Ot Z79.899 OTHER [facility] (CURRENT) DRUG THERAPY 07/13/2015 JENNY CRAVEN FACC, ALI FACP CCDS [...] Dominguez Ot 786.2 07/19/2015 GELLENDER DO, WEST Dominguez Ot 482.42 07/19/2015 GELLENDER DO, WEST Dominguez Ot 490 07/19/2015 GELLENDER DO, WEST Dominguez Ot 496 07/19/2015 GELLENDER DO, WEST Dominguez Ot 491.20 07/19/2015 GELLENDER DO, WEST Alberto Ot 492.0 07/19/2015 GELLENDER DO, WEST Alberto Ot 724.5 07/19/2015 GELLENDER DO, WEST Alberto Ot 786.05 07/19/2015 GELLENDER DO, WEST Dominguez Ot 786.2 07/19/2015 GELLENDER DO, WEST Dominguez Ot 786.59 07/19/2015 GELLENDER DO, WEST Dominguez Ot 789.01 07/19/2015 GELLENDER DO, WEST Dominguez Ot 789.01 07/19/2015 GELLENDER DO, WEST Dominguez Ot 786.05 07/19/2015 GELLENDER DO, WEST Dominguez Ot 786.2 07/19/2015 Ot V45.81 07/19/2015 Ot V57.89 07/19/2015 Ot V58.73 07/19/2015 BAIMA, LEONA L ENGINEERING ILLUSTRATOR Ot 272.4 07/19/2015 BAIMA, LEONA L ENGINEERING ILLUSTRATOR Ot 401.9 07/19/2015 BAIMA, LEONA L ENGINEERING ILLUSTRATOR Ot 414.00 07/19/2015 BAIMA, LEONA L ENGINEERING ILLUSTRATOR Ot 496 07/19/2015 BAIMA, LEONA L ENGINEERING ILLUSTRATOR Ot V45.81 07/19/2015 BAIMA, LEONA L ENGINEERING ILLUSTRATOR Ot 272.4 07/19/2015 BAIMA, LEONA L ENGINEERING ILLUSTRATOR Ot 401.9 07/19/2015 BAIMA, LEONA L ENGINEERING ILLUSTRATOR Ot 414.00 07/19/2015 BAIMA, LEONA L ENGINEERING ILLUSTRATOR Ot 433.10 07/19/2015 BAIMA, LEONA L ENGINEERING ILLUSTRATOR Ot 496 07/19/2015 BAIMA, LEONA L ENGINEERING ILLUSTRATOR Ot V45.81 07/19/2015 GELLENDER DO, WEST Dominguez Ot J44.9 07/19/2015 GELLENDER DO, WEST Dominguez Ot R05 07/19/2015 GELLENDER DO, WEST Dominguez Ot R06.2 07/19/2015 GELLENDER DO, WEST Dominguez Ot Z99.81 07/19/2015 GELLENDER DO, WEST Dominguez Ot J44.9 07/19/2015 GELLENDER DO, WEST Dominguez Ot R05 08/03/2015 GELLENDER DO, WEST Dominguez Ot J44.9 CHRONIC OBSTRUCTIVE PULMONARY DISEASE, U 08/03/2015 GELLENDER DO, WEST Dominguez Ot R05 COUGH 02/21/2016 GELLENDER DO, WEST Dominguez Ot 496 CHR AIRWAY OBSTRUCT NEC 02/21/2016 GELLENDER DO, WEST Dominguez Ot 786.50 CHEST PAIN NOS 02/21/2016 GELLENDER DO, WEST Dominguez Ot 496 CHR AIRWAY OBSTRUCT NEC 02/21/2016 GELLENDER DO, WEST Dominguez Ot 786.05 SHORTNESS OF BREATH 02/21/2016 GELLENDER DO, WEST Alberto Ot 786.2 COUGH 02/21/2016 CHANDANALENDER DO, WEST Dominguez Ot 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 02/21/2016 CHANDANALENDER DO, WEST Dominguez Ot 490 BRONCHITIS NOS 02/21/2016 GELLENDER DO, WEST Dominguez Ot 496 CHR AIRWAY OBSTRUCT NEC 02/21/2016 GELLENDER DO, WEST Dominguez Ot 491.20 OBSTR CHRONIC BRONCHITIS, W/O EXACERBATI 02/21/2016 GELLENDER DO, WEST Dominguez Ot 492.0 EMPHYSEMATOUS BLEB 02/21/2016 GELLENDER DO, WEST Dominguez Ot 724.5 BACKACHE NOS 02/21/2016 CHANDANALENDER DO, WEST Dominguez Ot 786.05 SHORTNESS OF BREATH 02/21/2016 GELLENDER DO, WEST Dominguez Ot 786.2 COUGH 02/21/2016 PARISA QUINTANILLA, WEST Dominguez Ot 786.59 CHEST PAIN NEC 02/21/2016 PRAISA QUINTANILLA, WEST Dominguez Ot 789.01 ABDOMINAL PAIN, RIGHT UPPER QUADRANT 02/21/2016 GELLENDER DO, WEST Dominguez Ot 789.01 ABDOMINAL PAIN, RIGHT UPPER QUADRANT 02/21/2016 CHANDANALENDER DO, WEST Alberto Ot 786.05 SHORTNESS OF BREATH 02/21/2016 SHIELADER DO, WEST Alberto Ot 786.2 COUGH 02/21/2016 Ot V45.81 AORTOCORONARY BYPASS 02/21/2016 Ot V57.89 REHABILITATION PROC NEC 02/21/2016 Ot V58.73 AFTERCARE POST SURGERY CIRULATORY SYSTEM 02/21/2016 BAIMA, LEONA L ENGINEERING ILLUSTRATOR Ot 272.4 HYPERLIPIDEMIA NEC/NOS 02/21/2016 BAIMA, LEONA L ENGINEERING ILLUSTRATOR Ot 401.9 HYPERTENSION NOS 02/21/2016 BAIMA, LEONA L ENGINEERING ILLUSTRATOR Ot 414.00 CORON ATHEROSCLER NOS TYPE VESSEL, NATIV 02/21/2016 CHASTITYMA, LEONA L ENGINEERING ILLUSTRATOR Ot 496 CHR AIRWAY OBSTRUCT NEC 02/21/2016 BAIMA, LEONA L ENGINEERING ILLUSTRATOR Ot V45.81 AORTOCORONARY BYPASS 02/21/2016 BAIMA, LEONA L ENGINEERING ILLUSTRATOR Ot 272.4 HYPERLIPIDEMIA NEC/NOS 02/21/2016 BAIMA, LEONA L ENGINEERING ILLUSTRATOR Ot 401.9 HYPERTENSION NOS 02/21/2016 BAIMILADY LEONA Morrell ENGINEERING ILLUSTRATOR Ot 414.00 CORON ATHEROSCLER NOS TYPE VESSEL, NATIV 02/21/2016 LEONA COLES ENGINEERING ILLUSTRATOR Ot 433.10 CAROTID ARTERY OCCLUSION W O CEREBRAL IN 02/21/2016 LEONA COLES ENGINEERING ILLUSTRATOR Ot 496 CHR AIRWAY OBSTRUCT NEC 02/21/2016 LEONA COLES ENGINEERING ILLUSTRATOR Ot V45.81 AORTOCORONARY BYPASS 02/21/2016 WE[place] MCCAU[place] DO Ot J44.9 CHRONIC OBSTRUCTIVE PULMONARY DISEASE, U 02/21/2016 CHANDANALENDER DO, WEST Dominguez Ot R05 COUGH 02/21/2016 [facility] DO, WEST Dominguez Ot R06.2 WHEEZING 02/21/2016 PARISA WEST QUINTANILLA Ot Z99.81 DEPENDENCE ON SUPPLEMENTAL OXYGEN 02/21/2016 [facility] WE[facility] QUINTANILLA Ot J44.9 CHRONIC OBSTRUCTIVE PULMONARY DISEASE, U 02/21/2016 PARISA QUINTANILLA, WEST Dominguez Ot R05 COUGH 02/22/2016 JENNY CRAVEN FACC, ALI FACP CCDS Ot I25.10 ATHSCL HEART DISEASE OF [place] CORONARY 02/22/2016 JENNY CRAVEN FACC, ALI FACP CCDS Ot I70.213 ATHSCL [place] ARTERIES OF EXTRM W INTRMT 02/23/2016 JENNY CRAVEN FACC, ALI FACP CCDS Ot E78.4 OTHER HYPERLIPIDEMIA 02/23/2016 JENNY CRAVEN FACC, ALI FACP CCDS Ot I10 ESSENTIAL (PRIMARY) HYPERTENSION 02/23/2016 JENNY CRAVEN FACC, ALI FACP CCDS Ot I25.10 ATHSCL HEART DISEASE OF [place] CORONARY 02/23/2016 JENNY CRAVEN FACC, ALI FACP CCDS Ot 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 02/23/2016 JENNY CRAVEN FACC, ALI FACP CCDS Ot I70.213 ATHSCL [place] ARTERIES OF EXTRM W INTRMT 02/23/2016 JENNY CRAVEN FACC ALI FACP CCDS Ot J43.8 OTHER EMPHYSEMA 03/14/2016 JENNY CRAVEN FACC, ALI FACP CCDS Ot I70.213 ATHSCL [place] ARTERIES OF EXTRM W INTRMT 03/14/2016 JENNY CRAVEN FACC ALI FACP CCDS Ot E78.4 OTHER HYPERLIPIDEMIA 03/14/2016 JENNY CRAVEN FACC, ALI FACP CCDS Ot I10 ESSENTIAL (PRIMARY) HYPERTENSION 03/14/2016 JENNY WHITAKERC, ALI FACP CCDS Ot I25.10 ATHSCL HEART DISEASE OF [place] CORONARY 03/14/2016 JENNY CRAVEN FACC, ALI FACP CCDS Ot 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 03/14/2016 JENNY CRAVEN FACC, ALI FACP CCDS Ot I70.213 ATHSCL [place] ARTERIES OF EXTRM W INTRMT 03/14/2016 JENNY CRAVEN FACC, ALI FACP CCDS Ot J43.8 OTHER EMPHYSEMA 03/21/2016 JENNY CRAVEN FACC, ALI FACP CCDS Ot E03.9 HYPOTHYROIDISM, UNSPECIFIED 03/21/2016 JENNY CRAVEN FACC, ALI FACP CCDS Ot E78.5 HYPERLIPIDEMIA, UNSPECIFIED 03/21/2016 JENNY CRAVEN FACC, ALI FACP CCDS Ot I10 ESSENTIAL (PRIMARY) HYPERTENSION 03/21/2016 JENNY CRAVEN FACC, ALI FACP CCDS Ot I25.10 ATHSCL HEART DISEASE OF [place] CORONARY 03/21/2016 JENNY CRAVEN FACC, NORMA FACP CCDS Ot I70.0 ATHEROSCLEROSIS OF [place] 03/21/2016 NORMA ALVARADO MD, FACC FACP CCDS Ot I70.1 ATHEROSCLEROSIS OF RENAL ARTERY 03/21/2016 JENNY CRAVEN FACC, ALI FACP CCDS Ot I70.213 ATHSCL [place] ARTERIES OF EXTRM W INTRMT 03/21/2016 JENNY CRAVEN FACC, NORMA FACP CCDS Ot J44.1 CHRONIC OBSTRUCTIVE PULMONARY DISEASE W 03/21/2016 NORMA ALVARADO MD, FACC FACP CCDS Ot R73.9 HYPERGLYCEMIA, UNSPECIFIED 03/21/2016 JENNY CRAVEN FACC ALI FACP CCDS Ot Z79.899 OTHER [facility] (CURRENT) DRUG THERAPY 03/21/2016 JENNY CRAVEN FACC ALI FACP CCDS Ot Z87.891 PERSONAL HISTORY OF NICOTINE DEPENDENCE 03/21/2016 NORMA ALVARADO MD, FACC FACP CCDS Ot Z95.1 PRESENCE OF AORTOCORONARY BYPASS GRAFT 03/21/2016 NORMA ALVARADO MD, FACC FACP CCDS Ot Z99.81 DEPENDENCE ON SUPPLEMENTAL OXYGEN 03/26/2016 NORMA ALVARADO MD, FACC FACP CCDS Ot M79.605 PAIN IN LEFT LEG 03/27/2016 JENNY MD FACC, ALI FACP CCDS Ot M79.605 PAIN IN LEFT LEG 03/28/2016 JENNY CRAVEN FACC, ALI FACP CCDS Ot M79.605 PAIN IN LEFT LEG 03/29/2016 JENNY CRAVEN FACC, ALI FACP CCDS Ot I70.213 ATHSCL [place] ARTERIES OF EXTRM W INTRMT 03/29/2016 JENNY CRAVEN FACC, ALI FACP CCDS Ot E78.4 OTHER HYPERLIPIDEMIA 03/29/2016 JENNY CRAVEN FACC, ALI FACP CCDS Ot I10 ESSENTIAL (PRIMARY) HYPERTENSION 03/29/2016 JENNY CRAVEN FACC, ALI FACP CCDS Ot I25.10 ATHSCL HEART DISEASE OF [place] CORONARY 03/29/2016 JENNY CRAVEN FACC, ALI FACP CCDS Ot 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 03/29/2016 JENNY CRAVEN FACC, ALI FACP CCDS Ot I70.213 ATHSCL [place] ARTERIES OF EXTRM W INTRMT 03/29/2016 JENNY CRAVEN FACC, ALI FACP CCDS Ot J43.8 OTHER EMPHYSEMA 04/18/2016 JENNY CRAVEN FACC, ALI FACP CCDS Ot E03.9 HYPOTHYROIDISM, UNSPECIFIED 04/18/2016 JENNY CRAVEN FACC, ALI FACP CCDS Ot E78.5 HYPERLIPIDEMIA, UNSPECIFIED 04/18/2016 JENNY CRAVEN FACC, ALI FACP CCDS Ot I10 ESSENTIAL (PRIMARY) HYPERTENSION 04/18/2016 JENNY CRAVEN FACC, ALI FACP CCDS Ot I25.10 ATHSCL HEART DISEASE OF [place] CORONARY 04/18/2016 JENNY CRAVEN FACC, ALI FACP CCDS Ot I70.0 ATHEROSCLEROSIS OF [place] 04/18/2016 JENNY CRAVEN FACC, ALI FACP CCDS Ot I70.1 ATHEROSCLEROSIS OF RENAL ARTERY 04/18/2016 JENNY CRAVEN FACC, ALI FACP CCDS Ot I70.213 ATHSCL [place] ARTERIES OF EXTRM W INTRMT 04/18/2016 JENNY CRAVEN FACC, ALI FACP CCDS Ot J44.1 CHRONIC OBSTRUCTIVE PULMONARY DISEASE W 04/18/2016 JENNY CRAVEN FACC, ALI FACP CCDS Ot R73.9 HYPERGLYCEMIA, UNSPECIFIED 04/18/2016 JENNY CRAVEN FACC, ALI FACP CCDS Ot Z79.899 OTHER [facility] (CURRENT) DRUG THERAPY 04/18/2016 JENNY CRAVEN FACC, [facility] CCDS Ot Z87.891 PERSONAL HISTORY OF NICOTINE DEPENDENCE 04/18/2016 JENNY CRAVEN FACC, [facility] CCD[facility] Ot Z95.1 PRESENCE OF AORTOCORONARY BYPASS GRAFT 04/18/2016 JENNY CRAVEN FACC, [facility] CCD[facility] Ot Z99.81 DEPENDENCE ON SUPPLEMENTAL OXYGEN 04/19/2016 GELLENDER DO, WEST Dominguez Ot E78.5 HYPERLIPIDEMIA, UNSPECIFIED 04/19/2016 GELLENDER DO, WEST Alberto Ot I10 ESSENTIAL (PRIMARY) HYPERTENSION 04/19/2016 GELLENDER DO, WEST Dominguez Ot I25.10 ATHSCL HEART DISEASE OF [place] CORONARY 04/19/2016 GELLENDER DO, WEST Dominguez Ot J44.1 CHRONIC OBSTRUCTIVE PULMONARY DISEASE W 04/19/2016 GELLENDER DO, WEST Dominguez Ot R07.9 CHEST PAIN, UNSPECIFIED 04/19/2016 GELLENDER DO, WEST Dominguez Ot Z87.891 PERSONAL HISTORY OF NICOTINE DEPENDENCE 04/19/2016 GELLENDER DO, WEST Dominguez Ot Z95.1 PRESENCE OF AORTOCORONARY BYPASS GRAFT 04/19/2016 GELLENDER DO, WEST Dominguez Ot Z95.820 PERIPHERAL VASCULAR ANGIOPLASTY STATUS W 04/19/2016 GELLENDER DO, WEST Alberto Ot Z99.81 DEPENDENCE ON SUPPLEMENTAL OXYGEN 04/19/2016 GELLENDER DO, WEST Dominguez Ot E78.5 HYPERLIPIDEMIA, UNSPECIFIED 04/19/2016 GELLENDER DO, WEST A Ot I10 ESSENTIAL (PRIMARY) HYPERTENSION 04/19/2016 GELLENDER DO, WEST A Ot I25.10 ATHSCL HEART DISEASE OF [place] CORONARY 04/19/2016 GELLENDER DO, WEST Dominguez Ot J44.1 CHRONIC OBSTRUCTIVE PULMONARY DISEASE W 04/19/2016 GELLENDER DO, WEST Alberto Ot R07.9 CHEST PAIN, UNSPECIFIED 04/19/2016 GELLENDER DO, WEST Alberto Ot Z87.891 PERSONAL HISTORY OF NICOTINE DEPENDENCE 04/19/2016 GELLENDER DO, WEST A Ot Z95.1 PRESENCE OF AORTOCORONARY BYPASS GRAFT 04/19/2016 GELLENDER DO, WEST Dominguez Ot Z95.820 PERIPHERAL VASCULAR ANGIOPLASTY STATUS W 04/19/2016 GELLENDER DO, WEST Dominguez Ot Z99.81 DEPENDENCE ON SUPPLEMENTAL OXYGEN 04/25/2016 JENNY CRAVEN FACC, [facility] Ot M79.605 PAIN IN LEFT LEG 05/04/2016 JENNY CRAVEN [facility], [facility] [place] CCDS Ot M79.605 PAIN IN LEFT LEG 07/03/2016 GELLENDER DO, WEST A Ot J44.9 CHRONIC OBSTRUCTIVE PULMONARY DISEASE, U 07/03/2016 GELLENDER DO, WEST A Ot R05 COUGH 07/03/2016 GELLENDER DO, WEST A Ot R07.89 OTHER CHEST PAIN 07/03/2016 GELLENDER DO, WEST A Ot J44.9 CHRONIC OBSTRUCTIVE PULMONARY DISEASE, U 07/03/2016 GELLENDER DO, WEST A Ot R05 COUGH 07/03/2016 GELLENDER DO, WEST A Ot R07.89 OTHER CHEST PAIN 07/03/2016 LEONA COLES L ENGINEERING ILLUSTRATOR Ot E03.9 HYPOTHYROIDISM, UNSPECIFIED 07/03/2016 SANKET LEONA L ENGINEERING ILLUSTRATOR Ot I10 ESSENTIAL (PRIMARY) HYPERTENSION 07/03/2016 SANKET LEONA L ENGINEERING ILLUSTRATOR Ot I25.10 ATHSCL HEART DISEASE OF [place] CORONARY 07/03/2016 DANYELL COLESHER L ENGINEERING ILLUSTRATOR Ot I27.2 OTHER SECONDARY PULMONARY HYPERTENSION 07/03/2016 DANYELL COLESHER L ENGINEERING ILLUSTRATOR Ot I70.1 ATHEROSCLEROSIS OF RENAL ARTERY 07/03/2016 DANYELL COLESHER L ENGINEERING ILLUSTRATOR Ot I70.213 ATHSCL [place] ARTERIES OF EXTRM W INTRMT 07/03/2016 LEONA COLES L ENGINEERING ILLUSTRATOR Ot J44.9 CHRONIC OBSTRUCTIVE PULMONARY DISEASE, U 07/03/2016 DANYELL COLESHER L ENGINEERING ILLUSTRATOR Ot Z79.899 OTHER [facility] (CURRENT) DRUG THERAPY 07/03/2016 DANYELL COLESHER L ENGINEERING ILLUSTRATOR Ot Z87.891 PERSONAL HISTORY OF NICOTINE DEPENDENCE 07/03/2016 DANYELL COLESHER L ENGINEERING ILLUSTRATOR Ot Z95.1 PRESENCE OF AORTOCORONARY BYPASS GRAFT 07/03/2016 LEONA COLES L ENGINEERING ILLUSTRATOR Ot Z95.820 PERIPHERAL VASCULAR ANGIOPLASTY STATUS W 07/06/2016 LEONA COLES L ENGINEERING ILLUSTRATOR Ot E03.9 HYPOTHYROIDISM, UNSPECIFIED 07/06/2016 CHASTITYMA LEONA L ENGINEERING ILLUSTRATOR Ot I10 ESSENTIAL (PRIMARY) HYPERTENSION 07/06/2016 DANYELL COLESHER L ENGINEERING ILLUSTRATOR Ot I25.10 ATHSCL HEART DISEASE OF [place] CORONARY 07/06/2016 DANYELL COLESHER L ENGINEERING ILLUSTRATOR Ot I27.2 OTHER SECONDARY PULMONARY HYPERTENSION 07/06/2016 SANKET LEONA Porsche ENGINEERING ILLUSTRATOR Ot I70.1 ATHEROSCLEROSIS OF RENAL ARTERY 07/06/2016 LEONA COLES ENGINEERING ILLUSTRATOR Ot I70.213 ATHSCL [place] ARTERIES OF EXTRM W INTRMT 07/06/2016 LEONA COLES ENGINEERING ILLUSTRATOR Ot J44.9 CHRONIC OBSTRUCTIVE PULMONARY DISEASE, U 07/06/2016 LEONA COLES ENGINEERING ILLUSTRATOR Ot Z79.899 OTHER [facility] (CURRENT) DRUG THERAPY 07/06/2016 LEONA COLES ENGINEERING ILLUSTRATOR Ot Z87.891 PERSONAL HISTORY OF NICOTINE DEPENDENCE 07/06/2016 LEONA COLES ENGINEERING ILLUSTRATOR Ot Z95.1 PRESENCE OF AORTOCORONARY BYPASS GRAFT 07/06/2016 LEONA COLES ENGINEERING ILLUSTRATOR Ot Z95.820 PERIPHERAL VASCULAR ANGIOPLASTY STATUS W 07/06/2016 GELLENDER DO, WEST Dominguez Ot 496 CHR AIRWAY OBSTRUCT NEC 07/06/2016 GELLENDER DO, WEST Dominguez Ot 786.50 CHEST PAIN NOS 07/06/2016 GELLENDER DO, WEST Dominguez Ot 496 CHR AIRWAY OBSTRUCT NEC 07/06/2016 GELLENDER DOWEST Ot 786.05 SHORTNESS OF BREATH 07/06/2016 GELLENDER DOWEST Ot 786.2 COUGH 07/06/2016 GELLENDER DOWEST Ot 482.42 METHICILLIN RESISTANT PNEUMONIA DUE TO [...] Ot 786.05 SHORTNESS OF BREATH 07/06/2016 GELLENDER DOWEST Ot 786.2 COUGH 07/06/2016 GELLENDER DOWEST Ot 786.59 CHEST PAIN NEC 07/06/2016 GELLENDER DOWEST Ot 789.01 ABDOMINAL PAIN, RIGHT UPPER QUADRANT 07/06/2016 GELLENDER WEST QUINTANILLA Ot 789.01 ABDOMINAL PAIN, RIGHT UPPER QUADRANT 07/06/2016 PARISA QUINTANILLA WEST Dominguez Ot 786.05 SHORTNESS OF BREATH 07/06/2016 PARISA QUINTANILLA WEST Dominguez Ot 786.2 COUGH 07/06/2016 Ot V45.81 AORTOCORONARY BYPASS 07/06/2016 Ot V57.89 REHABILITATION PROC NEC 07/06/2016 Ot V58.73 AFTERCARE POST SURGERY CIRULATORY SYSTEM 07/06/2016 BAIMA, LEONA L ENGINEERING ILLUSTRATOR Ot 272.4 HYPERLIPIDEMIA NEC/NOS 07/06/2016 BAIMA, LEONA L ENGINEERING ILLUSTRATOR Ot 401.9 HYPERTENSION NOS 07/06/2016 BAIMA, LEONA L ENGINEERING ILLUSTRATOR Ot 414.00 CORON ATHEROSCLER NOS TYPE VESSEL, NATIV 07/06/2016 BAIMA, LEONA L ENGINEERING ILLUSTRATOR Ot 496 CHR AIRWAY OBSTRUCT NEC 07/06/2016 BAIMA, LEONA L ENGINEERING ILLUSTRATOR Ot V45.81 AORTOCORONARY BYPASS 07/06/2016 BAIMA, LEONA L ENGINEERING ILLUSTRATOR Ot 272.4 HYPERLIPIDEMIA NEC/NOS 07/06/2016 BAIMA, LEONA L ENGINEERING ILLUSTRATOR Ot 401.9 HYPERTENSION NOS 07/06/2016 BAIMA, LEONA L ENGINEERING ILLUSTRATOR Ot 414.00 CORON ATHEROSCLER NOS TYPE VESSEL, NATIV 07/06/2016 BAIMA, LEONA L ENGINEERING ILLUSTRATOR Ot 433.10 CAROTID ARTERY OCCLUSION W O CEREBRAL IN 07/06/2016 BAIMA, LEONA L ENGINEERING ILLUSTRATOR Ot 496 CHR AIRWAY OBSTRUCT NEC 07/06/2016 BAIMA, LEONA L ENGINEERING ILLUSTRATOR Ot V45.81 AORTOCORONARY BYPASS 07/06/2016 CHANDANANILSMONTEZ WEST Alberto Ot J44.9 CHRONIC OBSTRUCTIVE PULMONARY DISEASE, U 07/06/2016 PARISA DO WEST Alberto Ot R05 COUGH 07/06/2016 PARISA QUINTANILLAWEST Ot R06.2 WHEEZING 07/06/2016 PARISA QUINTANILLAWEST Ot Z99.81 DEPENDENCE ON SUPPLEMENTAL OXYGEN 07/06/2016 CHANDANANILSMONTEZWEST Ot J44.9 CHRONIC OBSTRUCTIVE PULMONARY DISEASE, U 07/06/2016 PARISA QUINTANILLAWEST Ot R05 COUGH 07/06/2016 JENNY CRAVEN FACC, ALI FACP CCDS Ot I70.213 ATHSCL [place] ARTERIES OF EXTRM W INTRMT 07/06/2016 JENNY CRAVEN FACC, ALI FACP CCDS Ot E78.4 OTHER HYPERLIPIDEMIA 07/06/2016 JENNY CRAVEN FACC, ALI FACP CCDS Ot I10 ESSENTIAL (PRIMARY) HYPERTENSION 07/06/2016 JENNY CRAVEN FACC, ALI FACP CCDS Ot I25.10 ATHSCL HEART DISEASE OF [place] CORONARY 07/06/2016 JENNY CRAVEN FACC, ALI FACP CCDS Ot 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 07/06/2016 JENNY CRAVEN FACC, ALI FACP CCDS Ot I70.213 ATHSCL [place] ARTERIES OF EXTRM W INTRMT 07/06/2016 JENNY CRAVEN FACC, ALI FACP CCDS Ot J43.8 OTHER EMPHYSEMA 07/06/2016 JENNY CRAVEN FACC, ALI FACP CCDS Ot M79.605 PAIN IN LEFT LEG 07/06/2016 GELLENDER DO, WEST Dominguez Ot J44.9 CHRONIC OBSTRUCTIVE PULMONARY DISEASE, U 07/06/2016 GELLENDER DO, WEST Dominguez Ot [...] Ot 786.05 SHORTNESS OF BREATH 07/06/2016 GELLENDER DOWEST Ot 786.2 COUGH 07/06/2016 GELLENDER DOWEST Ot 786.59 CHEST PAIN NEC 07/06/2016 PARISA QUINTANILLA, WEST Dominguez Ot 789.01 ABDOMINAL PAIN, RIGHT UPPER QUADRANT 07/06/2016 WEST MCCAULEY DO Ot 789.01 ABDOMINAL PAIN, RIGHT UPPER QUADRANT 07/06/2016 WEST MCCAULEY DO Ot 786.05 SHORTNESS OF BREATH 07/06/2016 WEST MCCAULEY DO Ot 786.2 COUGH 07/06/2016 Ot V45.81 AORTOCORONARY BYPASS 07/06/2016 Ot V57.89 REHABILITATION PROC NEC 07/06/2016 Ot V58.73 AFTERCARE POST SURGERY CIRULATORY SYSTEM 07/06/2016 BAIMA, LEONA L ENGINEERING ILLUSTRATOR Ot 272.4 HYPERLIPIDEMIA NEC/NOS 07/06/2016 BAIMA, LEONA L ENGINEERING ILLUSTRATOR Ot 401.9 HYPERTENSION NOS 07/06/2016 BAIMA, LEONA L ENGINEERING ILLUSTRATOR Ot 414.00 CORON ATHEROSCLER NOS TYPE VESSEL, NATIV 07/06/2016 BAIMA, LEONA L ENGINEERING ILLUSTRATOR Ot 496 [address] AIR[address] OBSTRUCT NEC 07/06/2016 BAIMA, LEONA L ENGINEERING ILLUSTRATOR Ot V45.81 AORTOCORONARY BYPASS 07/06/2016 BAIMA, LEONA L ENGINEERING ILLUSTRATOR Ot 272.4 HYPERLIPIDEMIA NEC/NOS 07/06/2016 BAIMA, LEONA L ENGINEERING ILLUSTRATOR Ot 401.9 HYPERTENSION NOS 07/06/2016 BAIMA, LEONA L ENGINEERING ILLUSTRATOR Ot 414.00 CORON ATHEROSCLER NOS TYPE VESSEL, NATIV 07/06/2016 BAIMA, LEONA L ENGINEERING ILLUSTRATOR Ot 433.10 CAROTID ARTERY OCCLUSION W O CEREBRAL IN 07/06/2016 BAIMA, LEONA L ENGINEERING ILLUSTRATOR Ot [address] OBSTRUCT NEC 07/06/2016 BAIMA, LEONA L ENGINEERING ILLUSTRATOR Ot V45.81 AORTOCORONARY BYPASS 07/06/2016 PARISA QUINTANILLA WEST Alberto Ot J44.9 CHRONIC OBSTRUCTIVE PULMONARY DISEASE, U 07/06/2016 PARISA QUINTANILLA WEST Alberto Ot R05 COUGH 07/06/2016 PARISA QUINTANILLA WEST Alberto Ot R06.2 WHEEZING 07/06/2016 PARISA QUINTANILLAWEST Ot Z99.81 DEPENDENCE ON SUPPLEMENTAL OXYGEN 07/06/2016 PARISA QUINTANILLA WEST Alberto Ot J44.9 CHRONIC OBSTRUCTIVE PULMONARY DISEASE, U 07/06/2016 PARISA QUINTANILLA WEST Alberto Ot R05 COUGH 07/06/2016 JENNY WHITAKERC, ALI FACP CCDS Ot I70.213 ATHSCL [place] ARTERIES OF EXTRM W INTRMT 07/06/2016 JENNY CRAVEN FACC, ALI FACP CCDS Ot E78.4 OTHER HYPERLIPIDEMIA 07/06/2016 JENNY CRAVEN FACC, ALI FACP CCDS Ot I10 ESSENTIAL (PRIMARY) HYPERTENSION 07/06/2016 JENNY WHITAKERC, ALI FACP CCDS Ot I25.10 ATHSCL HEART DISEASE OF [place] CORONARY 07/06/2016 JENNY WHITAKERC, ALI FACP CCDS Ot 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 07/06/2016 JENNY WHITAKERC, ALI FACP CCDS Ot I70.213 ATHSCL [place] ARTERIES OF EXTRM W INTRMT 07/06/2016 JENNY CRAVEN FACC, ALI FACP CCDS Ot J43.8 OTHER EMPHYSEMA 07/06/2016 JENNY CRAVEN FACC, ALI FACP CCDS Ot M79.605 PAIN IN LEFT LEG 07/06/2016 PARISA DOWEST Ot J44.9 CHRONIC OBSTRUCTIVE PULMONARY DISEASE, U 07/06/2016 GELLENDER DOWEST Ot R05 COUGH 07/06/2016 GELNILSDER DOWEST Ot R07.89 OTHER CHEST PAIN 07/27/2016 GELNILSDER DO, WEST Dominguez Ot J44.9 CHRONIC OBSTRUCTIVE PULMONARY DISEASE, U 07/27/2016 GELLENDER DOWEST Ot R05 COUGH 07/27/2016 GELNILSDER DOWEST Ot R07.89 OTHER CHEST PAIN 08/03/2016 PARISA DOWEST Ot J44.9 CHRONIC OBSTRUCTIVE PULMONARY DISEASE, U 08/23/2016 GELLENDER DOWEST Ot J44.9 CHRONIC OBSTRUCTIVE PULMONARY DISEASE, U 08/23/2016 GELLENDER DO, WEST Dominguez Ot J44.9 CHRONIC OBSTRUCTIVE PULMONARY DISEASE, U 08/23/2016 GELLENDER DOWEST A Ot R05 COUGH 08/23/2016 GELLENDER DOWEST A Ot R07.89 OTHER CHEST PAIN 09/04/2016 Ot V45.81 AORTOCORONARY BYPASS 09/04/2016 Ot V57.89 REHABILITATION PROC NEC 09/04/2016 Ot V58.73 AFTERCARE POST SURGERY CIRULATORY SYSTEM 09/04/2016 LEONA COLES ENGINEERING ILLUSTRATOR Ot 272.4 HYPERLIPIDEMIA NEC/NOS 09/04/2016 BAILEONA HENNING ENGINEERING ILLUSTRATOR Ot 401.9 HYPERTENSION NOS 09/04/2016 BAILEONA HENNING ENGINEERING ILLUSTRATOR Ot 414.00 CORON ATHEROSCLER NOS TYPE VESSEL, NATIV 09/04/2016 CHASTITYLEONA HENNING ENGINEERING ILLUSTRATOR Ot 496 CH[address] AIRWAY OBSTRUCT NEC 09/04/2016 CHASTITYLEONA HENNING ENGINEERING ILLUSTRATOR Ot V45.81 AORTOCORONARY BYPASS 09/06/2016 [facility] QUINTANILLA Ot D38.1 NEOPLASM OF UNCERTAIN BEHAVIOR OF [place] 09/06/2016 [facility] E03.9 HYPOTHYROIDISM, UNSPECIFIED 09/06/2016 [facility] E78.5 HYPERLIPIDEMIA, UNSPECIFIED 09/06/2016 [facility] DOWEST Ot F41.9 ANXIETY DISORDER, UNSPECIFIED 09/06/2016 [facility] Ot I10 ESSENTIAL (PRIMARY) HYPERTENSION 09/06/2016 [facility] Ot I25.10 ATHSCL HEART DISEASE OF [place] CORONARY 09/06/2016 [facility] Ot I27.2 OTHER SECONDARY PULMONARY HYPERTENSION 09/06/2016 [facility] Ot I73.9 PERIPHERAL VASCULAR DISEASE, UNSPECIFIED 09/06/2016 [facility] WEST QUINTANILLA Ot J44.1 CHRONIC OBSTRUCTIVE PULMONARY DISEASE W 09/06/2016 [facility] WEST QUINTANILLA Ot N28.0 ISCHEMIA AND INFARCTION OF KIDNEY 09/06/2016 [facility] Ot R73.9 HYPERGLYCEMIA, UNSPECIFIED 09/06/2016 [facility] Ot R79.1 ABNORMAL COAGULATION PROFILE 09/06/2016 WEST MCCAULEY DO Ot Z79.02 [facility] (CURRENT) USE OF ANTITHROMBOTI 09/06/2016 [facility] Ot Z79.82 [facility] (CURRENT) USE OF ASPIRIN 09/06/2016 [facility] WEST QUINTANILLA Ot Z87.891 PERSONAL HISTORY OF NICOTINE DEPENDENCE 09/06/2016 [facility] WEST QUINTANILLA Ot Z95.1 PRESENCE OF AORTOCORONARY BYPASS GRAFT 09/06/2016 WEST MCCAULEY DO Ot Z95.5 PRESENCE OF CORONARY ANGIOPLASTY IMPLANT 09/06/2016 [facility] WEST QUINTANILLA Ot Z95.828 PRESENCE OF OTHER VASCULAR IMPLANTS AND 09/06/2016 WEST MCCAULEY DO Ot Z99.81 DEPENDENCE ON SUPPLEMENTAL OXYGEN 09/10/2016 ALTAGRACIA WALLACE DO Ot Z01.818 ENCOUNTER FOR OTHER PREPROCEDURAL EXAMIN 09/12/2016 ALTAGRACIA WALLACE DO Ot F17.210 NICOTINE DEPENDENCE, CIGARETTES, UNCOMPL 09/12/2016 ALTAGRACIA WALLACE DO Ot F41.9 ANXIETY DISORDER, UNSPECIFIED 09/12/2016 ALTAGRACIA WALLACE DO Ot I10 ESSENTIAL (PRIMARY) HYPERTENSION 09/12/2016 ALTAGRACIA WALLACE DO Ot I25.10 ATHSCL HEART DISEASE OF [place] CORONARY 09/12/2016 ALTAGRACIA WALLACE DO Ot I73.9 PERIPHERAL VASCULAR DISEASE, UNSPECIFIED 09/12/2016 ALTAGRACIA WALLACE DO Ot J44.9 CHRONIC OBSTRUCTIVE PULMONARY DISEASE, U 09/12/2016 ALTAGRACIA WALLACE DO Ot R59.0 LOCALIZED ENLARGED LYMPH NODES 09/12/2016 ALTAGRACIA WALLACE DO Ot Z95.1 PRESENCE OF AORTOCORONARY BYPASS GRAFT 09/13/2016 WEST MCCAULEY DO Ot J44.9 CHRONIC OBSTRUCTIVE PULMONARY DISEASE, U 09/14/2016 ALTAGRACIA WALLACE DO Ot F17.210 NICOTINE DEPENDENCE, CIGARETTES, UNCOMPL 09/14/2016 ALTAGRACIA WALLACE DO Ot F41.9 ANXIETY DISORDER, UNSPECIFIED 09/14/2016 ALTAGRACIA WALLACE DO Ot I10 ESSENTIAL (PRIMARY) HYPERTENSION 09/14/2016 ALTAGRACIA WALLACE DO Ot I25.10 ATHSCL HEART DISEASE OF [place] CORONARY 09/14/2016 ALTAGRACIA WALLACE DO Ot I73.9 PERIPHERAL VASCULAR DISEASE, UNSPECIFIED 09/14/2016 ALTAGRACIA WALLACE DO Ot J44.9 CHRONIC OBSTRUCTIVE PULMONARY DISEASE, U 09/14/2016 ALTAGRACIA WALLACE DO Ot R59.0 LOCALIZED ENLARGED LYMPH NODES 09/14/2016 ALTAGRACIA WALLACE DO Ot Z95.1 PRESENCE OF AORTOCORONARY BYPASS GRAFT 09/16/2016 ALTAGRACIA WALLACE DO Ot F17.210 NICOTINE DEPENDENCE, CIGARETTES, UNCOMPL 09/16/2016 ALTAGRACIA WALLACE DO Ot F41.9 ANXIETY DISORDER, UNSPECIFIED 09/16/2016 ALTAGRACIA WALLACE DO Ot I10 ESSENTIAL (PRIMARY) HYPERTENSION 09/16/2016 ALTAGRACIA WALLACE DO Ot I25.10 ATHSCL HEART DISEASE OF [place] CORONARY 09/16/2016 ALTAGRACIA WALLACE DO Ot I73.9 PERIPHERAL VASCULAR DISEASE, UNSPECIFIED 09/16/2016 ALTAGRACIA WALLACE DO Ot J44.9 CHRONIC OBSTRUCTIVE PULMONARY DISEASE, U 09/16/2016 ALTAGRACIA WALLACE DO Ot R59.0 LOCALIZED ENLARGED LYMPH NODES 09/16/2016 ALTAGRACIA WALLACE DO Ot Z95.1 PRESENCE OF AORTOCORONARY BYPASS GRAFT 09/19/2016 KRISTINE LOWERY Ot R91.1 SOLITARY PULMONARY NODULE 09/22/2016 ALTAGRACIA WALLACE DO Ot F17.210 NICOTINE DEPENDENCE, CIGARETTES, UNCOMPL 09/22/2016 ALTAGRACIA WALLACE DO Ot F41.9 ANXIETY DISORDER, UNSPECIFIED 09/22/2016 ALTAGRACIA WALLACE DO Ot I10 ESSENTIAL (PRIMARY) HYPERTENSION 09/22/2016 ALTAGRACIA WALLACE DO Ot I25.10 ATHSCL HEART DISEASE OF [place] CORONARY 09/22/2016 ALTAGRACIA WALLACE DO Ot I73.9 PERIPHERAL VASCULAR DISEASE, UNSPECIFIED 09/22/2016 ALTAGRACIA WALLACE DO Ot J44.9 CHRONIC OBSTRUCTIVE PULMONARY DISEASE, U 09/22/2016 ALTAGRACIA WALLACE DO Ot R59.0 LOCALIZED ENLARGED LYMPH NODES 09/22/2016 ALTAGRACIA WALLACE DO Ot Z95.1 PRESENCE OF AORTOCORONARY BYPASS GRAFT 09/26/2016 NICK CASTANEDA APRN Ot C34.90 MALIGNANT NEOPLASM OF UNSP PART OF UNSP 09/26/2016 NICK CASTANEDA APRN Ot J43.8 OTHER EMPHYSEMA 09/26/2016 KRISTINE LOWERY Ot M48.54XA COLLAPSED VERTEBRA, NEC, THORACIC REGION 09/26/2016 KRISTINE LOWERY Ot N26.1 ATROPHY OF KIDNEY (TERMINAL) 09/26/2016 KRISTINE LOWERY Ot R91.1 SOLITARY PULMONARY NODULE 09/26/2016 ALTAGRACIA WALLACE DO Ot Z01.818 ENCOUNTER FOR OTHER PREPROCEDURAL EXAMIN 09/28/2016 KRISTINE LOWERY Ot C34.91 MALIGNANT NEOPLASM OF UNSP PART OF RIGHT 09/28/2016 KRISTINE LOWERY Ot E07.9 DISORDER OF THYROID, UNSPECIFIED 09/28/2016 SEBASTIÁN KRISTINE Cabello Ot E78.5 HYPERLIPIDEMIA, UNSPECIFIED 09/28/2016 SEBASTIÁN, KRISTINE Cabello Ot I10 ESSENTIAL (PRIMARY) HYPERTENSION 09/28/2016 SEBASTIÁN, KRISTINE Cabello Ot I25.10 ATHSCL HEART DISEASE OF [place] CORONARY 09/28/2016 SEBASTIÁN KRISTINE Cabello Ot J44.9 CHRONIC OBSTRUCTIVE PULMONARY DISEASE, U 09/28/2016 SEBASTIÁN KRISTINE Cabello Ot M54.6 PAIN IN THORACIC SPINE 09/28/2016 SEBASTIÁN KRISTINE Cabello Ot Z79.899 OTHER [facility] (CURRENT) DRUG THERAPY 09/28/2016 GELLENDER DO, WEST Dominguez Ot 496 CH[address] AIRWAY OBSTRUCT NEC 09/28/2016 GELLENDER DO, WEST Dominguez Ot 786.50 CHEST PAIN NOS 09/28/2016 GELLENDER DO, WEST Dominguez Ot 496 CHR AIRWAY OBSTRUCT NEC 09/28/2016 GELLENDER DO, WEST Dominguez Ot 786.05 SHORTNESS OF BREATH 09/28/2016 GELLENDER DO, WEST Dominguez Ot 786.2 COUGH 09/28/2016 GELLENDER DO, WEST Dominguez Ot 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 09/28/2016 GELLENDER DO, WEST Dominguez Ot 490 BRONCHITIS NOS 09/28/2016 GELLENDER DO, WEST Dominguez Ot 496 CHR AIRWAY OBSTRUCT NEC 09/28/2016 GELLENDER DO, WEST Dominguez Ot 491.20 OBSTR CHRONIC BRONCHITIS, W/O EXACERBATI 09/28/2016 GELLENDER DO, WEST Dominguez Ot 492.0 EMPHYSEMATOUS BLEB 09/28/2016 GELLENDER DO, WEST Dominguez Ot 724.5 BACKACHE NOS 09/28/2016 GELLENDER DO, WEST Dominguez Ot 786.05 SHORTNESS OF BREATH 09/28/2016 GELLENDER DO, WEST Dominguez Ot 786.2 COUGH 09/28/2016 GELLENDER DO, WEST Dominguez Ot 786.59 CHEST PAIN NEC 09/28/2016 GELLENDER DO, WEST Dominguez Ot 789.01 ABDOMINAL PAIN, RIGHT UPPER QUADRANT 09/28/2016 GELLENDER DO, WEST Dominguez Ot 789.01 ABDOMINAL PAIN, RIGHT UPPER QUADRANT 09/28/2016 GELLENDER DO, WEST Dominguez Ot 786.05 SHORTNESS OF BREATH 09/28/2016 GELLENDER DO, WEST Dominguez Ot 786.2 COUGH 09/28/2016 Ot V45.81 AORTOCORONARY BYPASS 09/28/2016 Ot V57.89 REHABILITATION PROC NEC 09/28/2016 Ot V58.73 AFTERCARE POST SURGERY CIRULATORY SYSTEM 09/28/2016 BAIMA, LEONA L ENGINEERING ILLUSTRATOR Ot 272.4 HYPERLIPIDEMIA NEC/NOS 09/28/2016 BAIMA, LEONA L ENGINEERING ILLUSTRATOR Ot 401.9 HYPERTENSION NOS 09/28/2016 BAIMA, LEONA L ENGINEERING ILLUSTRATOR Ot 414.00 CORON ATHEROSCLER NOS TYPE VESSEL, NATIV 09/28/2016 BAIMA, LEONA L ENGINEERING ILLUSTRATOR Ot 496 [address] AIRWAY OBSTRUCT NEC 09/28/2016 BAIMA, LEONA L ENGINEERING ILLUSTRATOR Ot V45.81 AORTOCORONARY BYPASS 09/28/2016 BAIMA, LEONA L ENGINEERING ILLUSTRATOR Ot 272.4 HYPERLIPIDEMIA NEC/NOS 09/28/2016 BAIMA, LEONA L ENGINEERING ILLUSTRATOR Ot 401.9 HYPERTENSION NOS 09/28/2016 BAIMA, LEONA L ENGINEERING ILLUSTRATOR Ot 414.00 CORON ATHEROSCLER NOS TYPE VESSEL, NATIV 09/28/2016 BAIMA, LEONA L ENGINEERING ILLUSTRATOR Ot 433.10 CAROTID ARTERY OCCLUSION W O CEREBRAL IN 09/28/2016 BAIMA, LEONA L ENGINEERING ILLUSTRATOR Ot 496 [address] AIRW[address] OBSTRUCT NEC 09/28/2016 BAIMA, LEONA L ENGINEERING ILLUSTRATOR Ot V45.81 AORTOCORONARY BYPASS 09/28/2016 WEST MCCAULEY DO Ot J44.9 CHRONIC OBSTRUCTIVE PULMONARY DISEASE, U 09/28/2016 WEST MCCAULEY DO Ot R05 COUGH 09/28/2016 WEST MCCAULEY DO Ot R06.2 WHEEZING 09/28/2016 WEST MCCAULEY DO Ot Z99.81 DEPENDENCE ON SUPPLEMENTAL OXYGEN 09/28/2016 WEST MCCAULEY DO Ot J44.9 CHRONIC OBSTRUCTIVE PULMONARY DISEASE, U 09/28/2016 WEST MCCAULEY DO Ot R05 COUGH 09/28/2016 JENNY CRAVEN FACC, NROMA FACP CCDS Ot I70.213 ATHSCL [place] ARTERIES OF EXTRM W INTRMT 09/28/2016 JENNY CRAVEN FACC, NORMA FACP CCDS Ot E78.4 OTHER HYPERLIPIDEMIA 09/28/2016 JENNY CRAVEN FACC, NORMA FACP CCDS Ot I10 ESSENTIAL (PRIMARY) HYPERTENSION 09/28/2016 JENNY CRAVEN FACC, NORMA FACP CCDS Ot I25.10 ATHSCL HEART DISEASE OF [place] CORONARY 09/28/2016 JEN[facility] CRAVEN FACC, [facility] Ot 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 09/28/2016 JENNY CRAVEN FACC, AL[facility] Ot I70.213 ATHSCL [place] ARTERIES OF EXTRM W INTRMT 09/28/2016 JNENY CRAVEN FACC, [facility] CCD[facility] Ot J43.8 OTHER EMPHYSEMA 09/28/2016 JENNY CRAVEN FACC, NORMA [facility] Ot M79.605 PAIN IN LEFT LEG 09/28/2016 GELLENDER DO, WEST A Ot J44.9 CHRONIC OBSTRUCTIVE PULMONARY DISEASE, U 09/28/2016 GELLENDER DO, WEST A Ot R05 COUGH 09/28/2016 GELLENDER DO, WEST A Ot R07.89 OTHER CHEST PAIN 09/28/2016 GELLENDER DO, WEST A Ot J44.9 CHRONIC OBSTRUCTIVE PULMONARY DISEASE, U 09/28/2016 KRISTINE LOWERY Ot C34.91 MALIGNANT NEOPLASM OF UNSP PART OF RIGHT 09/28/2016 KRISTINE LOWERY Ot E07.9 DISORDER OF THYROID, UNSPECIFIED 09/28/2016 KRISTINE LOWERY Ot E78.5 HYPERLIPIDEMIA, UNSPECIFIED 09/28/2016 KRISTINE LOWERY Ot I10 ESSENTIAL (PRIMARY) HYPERTENSION 09/28/2016 KRISTINE LOWERY Ot I25.10 ATHSCL HEART DISEASE OF [place] CORONARY 09/28/2016 KRISTINE LOWERY Ot J44.9 CHRONIC OBSTRUCTIVE PULMONARY DISEASE, U 09/28/2016 KRISTINE LOWERY Ot M54.6 PAIN IN THORACIC SPINE 09/28/2016 KRISTINE LOWERY Ot Z79.899 OTHER [facility] (CURRENT) DRUG THERAPY 09/28/2016 KRISTINE LOWERY Ot R91.1 SOLITARY PULMONARY NODULE 09/28/2016 KRISTINE LOWERY Ot M48.54XA COLLAPSED VERTEBRA, NEC, THORACIC REGION 09/28/2016 KRISTINE LOWERY Ot N26.1 ATROPHY OF KIDNEY (TERMINAL) 09/28/2016 KRISTINE LOWERY Ot R91.1 SOLITARY PULMONARY NODULE 09/28/2016 NICK CASTANEDA APRN Ot C34.90 MALIGNANT NEOPLASM OF UNSP PART OF UNSP 09/28/2016 NICK CASTANEDA APRN Ot J43.8 OTHER EMPHYSEMA 09/28/2016 KRISTINE LOWERY N Ot C34.91 MALIGNANT NEOPLASM OF UNSP PART OF RIGHT 09/28/2016 KRISTINE LOWERY N Ot E07.9 DISORDER OF THYROID, UNSPECIFIED 09/28/2016 KRISTINE LOWERY N Ot E78.5 HYPERLIPIDEMIA, UNSPECIFIED 09/28/2016 SEBASTIÁNKRISTINE PARKS N Ot I10 ESSENTIAL (PRIMARY) HYPERTENSION 09/28/2016 SEBASTIÁN SURESHMARLEN N Ot I25.10 ATHSCL HEART DISEASE OF [place] CORONARY 09/28/2016 SEBASTIÁN SURESHMARLEN N Ot J44.9 CHRONIC OBSTRUCTIVE PULMONARY DISEASE, U 09/28/2016 SEBASTIÁNKRISTINE N Ot M54.6 PAIN IN THORACIC SPINE 09/28/2016 KRISTINE LOWERY N Ot Z79.899 OTHER [facility] (CURRENT) DRUG THERAPY 10/01/2016 KRISTINE LOWERY N Ot M48.54XA COLLAPSED VERTEBRA, NEC, THORACIC REGION 10/01/2016 KRISTINE LOWERY N Ot N26.1 ATROPHY OF KIDNEY (TERMINAL) 10/01/2016 KRISTINE LOWERY N Ot R91.1 SOLITARY PULMONARY NODULE 10/03/2016 KRISTINE LOWERY N Ot C34.90 MALIGNANT NEOPLASM OF UNSP PART OF UNSP 10/03/2016 KRISTINE LOWERY N Ot M48.54XA COLLAPSED VERTEBRA, NEC, THORACIC REGION 10/12/2016 KRISTINE LOWERY N Ot C34.91 MALIGNANT NEOPLASM OF UNSP PART OF RIGHT 10/12/2016 KRISTINE LOWERY N Ot E07.9 DISORDER OF THYROID, UNSPECIFIED 10/12/2016 SEBASTIÁN SURESHMARLEN N Ot E78.5 HYPERLIPIDEMIA, UNSPECIFIED 10/12/2016 SEBASTIÁN SURESHMARLEN N Ot I10 ESSENTIAL (PRIMARY) HYPERTENSION 10/12/2016 KRISTINE LOWERY N Ot I25.10 ATHSCL HEART DISEASE OF [place] CORONARY 10/12/2016 SEBASTIÁN KRISTINE N Ot J44.9 CHRONIC OBSTRUCTIVE PULMONARY DISEASE, U 10/12/2016 SEBASTIÁN KRISTINE N Ot M54.6 PAIN IN THORACIC SPINE 10/12/2016 SEBASTIÁNKRISTINE N Ot Z79.899 OTHER [facility] (CURRENT) DRUG THERAPY 10/12/2016 ALTAGRACIA WALLACE DO Ot F17.210 NICOTINE DEPENDENCE, CIGARETTES, UNCOMPL 10/12/2016 ALTAGRACIA WALLACE DO Ot F41.9 ANXIETY DISORDER, UNSPECIFIED 10/12/2016 ALTAGRACIA WALLACE DO Ot I10 ESSENTIAL (PRIMARY) HYPERTENSION 10/12/2016 ALTAGRACIA WALLACE DO Ot I25.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90 MALIGNANT NEOPLASM OF UNSP PART OF UNSP 10/25/2016 NICK CASTANEDA APRN Ot J43.8 OTHER EMPHYSEMA 10/26/2016 KRISTINE LOWERY Ot C34.90 MALIGNANT NEOPLASM OF UNSP PART OF UNSP 10/26/2016 KRISTINE LOWERY Ot M48.54XA COLLAPSED VERTEBRA, NEC, THORACIC REGION 10/29/2016 KRISTINE LOWERY Ot C34.91 MALIGNANT NEOPLASM OF UNSP PART OF RIGHT 10/29/2016 KRISTINE LOWERY Ot E07.9 DISORDER OF THYROID, UNSPECIFIED 10/29/2016 KRISTINE LOWERY Ot E78.5 HYPERLIPIDEMIA, UNSPECIFIED 10/29/2016 KRISTINE LOWERY Ot I10 ESSENTIAL (PRIMARY) HYPERTENSION 10/29/2016 KRISTINE LOWERY Ot I25.10 ATHSCL HEART DISEASE OF [place] CORONARY 10/29/2016 KRISTINE LOWERY Ot J44.9 CHRONIC OBSTRUCTIVE PULMONARY DISEASE, U 10/29/2016 KRISTINE LOWERY Ot M54.6 PAIN IN THORACIC SPINE 10/29/2016 KRISTINE LOWERY Ot Z79.899 OTHER [facility] (CURRENT) DRUG THERAPY 10/29/2016 NICOLE CRAVEN, DIYA Guerrero Ot F41.9 ANXIETY DISORDER, UNSPECIFIED 10/29/2016 DIYA RIVERA MD Ot I10 ESSENTIAL (PRIMARY) HYPERTENSION 10/29/2016 DIYA RIVERA MD Ot I25.10 ATHSCL HEART DISEASE OF [place] CORONARY 10/29/2016 DIYA RIVERA MD Ot J44.9 CHRONIC OBSTRUCTIVE PULMONARY DISEASE, U 10/29/2016 DIYA RIVERA MD Ot M25.512 PAIN IN LEFT SHOULDER 10/29/2016 DIYA RIVERA MD Ot S42.212A UNSP DISP FX OF SURGICAL NECK OF LEFT HU 10/29/2016 DIYA RIVERA MD Ot W18.09XA STRIKING AGAINST OTH OBJECT W SUBSEQUENT 10/29/2016 DIYA RIVERA MD Ot Z87.891 PERSONAL HISTORY OF NICOTINE DEPENDENCE 10/29/2016 DIYA RIVERA MD Ot Z90.710 ACQUIRED ABSENCE OF BOTH CERVIX AND UTER 10/29/2016 DIYA RIVERA MD Ot Z95.1 PRESENCE OF AORTOCORONARY BYPASS GRAFT 10/29/2016 DIYA RIVERA MD Ot Z95.5 PRESENCE OF CORONARY ANGIOPLASTY IMPLANT 10/30/2016 DIYA RIVERA MD Ot F41.9 ANXIETY DISORDER, UNSPECIFIED 10/30/2016 DIYA RIVERA MD Ot I10 ESSENTIAL (PRIMARY) HYPERTENSION 10/30/2016 DIYA RIVERA MD Ot I25.10 ATHSCL HEART DISEASE OF [place] CORONARY 10/30/2016 DIYA RIVERA MD Ot J44.9 CHRONIC OBSTRUCTIVE PULMONARY DISEASE, U 10/30/2016 DIYA RIVERA MD Ot M25.512 PAIN IN LEFT SHOULDER 10/30/2016 DIYA RIVERA MD Ot S42.212A UNSP DISP FX OF SURGICAL NECK OF LEFT HU 10/30/2016 DIYA RIVERA MD Ot W18.09XA STRIKING AGAINST OTH OBJECT W SUBSEQUENT 10/30/2016 DIYA RIVERA MD Ot Z87.891 PERSONAL HISTORY OF NICOTINE DEPENDENCE 10/30/2016 DIYA RIVERA MD Ot Z90.710 ACQUIRED ABSENCE OF BOTH CERVIX AND UTER 10/30/2016 DIYA RIVERA MD Ot Z95.1 PRESENCE OF AORTOCORONARY BYPASS GRAFT 10/30/2016 DIYA RIVERA MD Ot Z95.5 PRESENCE OF CORONARY ANGIOPLASTY IMPLANT 11/09/2016 KRISTINE LOWERY Destiney Ot C34.90 MALIGNANT NEOPLASM OF UNSP PART OF UNSP 11/09/2016 KRISTINE LOWERY Destiney Ot M48.54XA COLLAPSED VERTEBRA, NEC, THORACIC REGION 11/14/2016 KRISTINE LOWERY Destiney Ot C34.91 MALIGNANT NEOPLASM OF UNSP PART OF RIGHT 11/14/2016 SEBASTIÁN SURESHMARLEN Destiney Ot E07.9 DISORDER OF THYROID, UNSPECIFIED 11/14/2016 SEBASTIÁN KRISTINE Cabello Ot E78.5 HYPERLIPIDEMIA, UNSPECIFIED 11/14/2016 SEBASTIÁN KRISTINE Cabello Ot I10 ESSENTIAL (PRIMARY) HYPERTENSION 11/14/2016 SEBASTIÁN KRISTINE Cabello Ot I25.10 ATHSCL HEART DISEASE OF [place] CORONARY 11/14/2016 SEBASTIÁN, KRISTINE Cabello Ot J44.9 CHRONIC OBSTRUCTIVE PULMONARY DISEASE, U 11/14/2016 KRISTINE LOWERY Destiney Ot M54.6 PAIN IN THORACIC SPINE 11/14/2016 SEBASTIÁN, KRISTINE Cabello Ot Z79.899 OTHER [facility] (CURRENT) DRUG THERAPY 11/15/2016 DANYELL COLESHER L ENGINEERING ILLUSTRATOR Ot E03.9 HYPOTHYROIDISM, UNSPECIFIED 11/15/2016 SANKET LEONA L ENGINEERING ILLUSTRATOR Ot I10 ESSENTIAL (PRIMARY) HYPERTENSION 11/15/2016 SANKET LEONA L ENGINEERING ILLUSTRATOR Ot I25.10 ATHSCL HEART DISEASE OF [place] CORONARY 11/15/2016 SANKET LEONA L ENGINEERING ILLUSTRATOR Ot I27.2 OTHER SECONDARY PULMONARY HYPERTENSION 11/15/2016 SANKET LEONA L ENGINEERING ILLUSTRATOR Ot I70.1 ATHEROSCLEROSIS OF RENAL ARTERY 11/15/2016 DANYELL COLESHER L ENGINEERING ILLUSTRATOR Ot I70.213 ATHSCL [place] ARTERIES OF EXTRM W INTRMT 11/15/2016 SANKET LEONA L ENGINEERING ILLUSTRATOR Ot J44.9 CHRONIC OBSTRUCTIVE PULMONARY DISEASE, U 11/15/2016 DANYELL COLESHER L ENGINEERING ILLUSTRATOR Ot Z79.899 OTHER [facility] (CURRENT) DRUG THERAPY 11/15/2016 DANYELL COLESHER L ENGINEERING ILLUSTRATOR Ot Z87.891 PERSONAL HISTORY OF NICOTINE DEPENDENCE 11/15/2016 LEONA COLES L ENGINEERING ILLUSTRATOR Ot Z95.1 PRESENCE OF AORTOCORONARY BYPASS GRAFT 11/15/2016 LEONA COLES L ENGINEERING ILLUSTRATOR Ot Z95.820 PERIPHERAL VASCULAR ANGIOPLASTY STATUS W 11/20/2016 SEBASTIÁN, BOBAN N Ot C34.91 MALIGNANT NEOPLASM OF UNSP PART OF RIGHT 11/20/2016 KRISTINE LOWERY N Ot E07.9 DISORDER OF THYROID, UNSPECIFIED 11/20/2016 KRISTINE LOWERY N Ot E78.5 HYPERLIPIDEMIA, UNSPECIFIED 11/20/2016 SEBASTIÁN BOBAN N Ot I10 ESSENTIAL (PRIMARY) HYPERTENSION 11/20/2016 KRISTINE LOWERY N Ot I25.10 ATHSCL HEART DISEASE OF [place] CORONARY 11/20/2016 KRISTINE LOWERY N Ot J44.9 CHRONIC OBSTRUCTIVE PULMONARY DISEASE, U 11/20/2016 KRISTINE LOWERY N Ot M54.6 PAIN IN THORACIC SPINE 11/20/2016 KRISTINE LOWERY N Ot Z79.899 OTHER [facility] (CURRENT) DRUG THERAPY 11/23/2016 KRISTINE LOWERY N Ot C34.91 MALIGNANT NEOPLASM OF UNSP PART OF RIGHT 11/23/2016 KRISTINE LOWERY N Ot E07.9 DISORDER OF THYROID, UNSPECIFIED 11/23/2016 SEBASTIÁNKRISTINE PARKS N Ot E78.5 HYPERLIPIDEMIA, UNSPECIFIED 11/23/2016 SEBASTIÁN BOBMARLEN N Ot I10 ESSENTIAL (PRIMARY) HYPERTENSION 11/23/2016 KRISTINE LOWERY N Ot I25.10 ATHSCL HEART DISEASE OF [place] CORONARY 11/23/2016 KRISTINE LOWERY N Ot J44.9 CHRONIC OBSTRUCTIVE PULMONARY DISEASE, U 11/23/2016 KRISTINE LOWERY N Ot M54.6 PAIN IN THORACIC SPINE 11/23/2016 KRISTINE LOWERY N Ot Z79.899 OTHER [facility] (CURRENT) DRUG THERAPY 11/23/2016 KRISTINE LOWERY N Ot M48.54XA COLLAPSED VERTEBRA, NEC, THORACIC REGION 11/23/2016 KRISTINE LOWERY N Ot N26.1 ATROPHY OF KIDNEY (TERMINAL) 11/23/2016 KRISTINE LOWERY N Ot R91.1 SOLITARY PULMONARY NODULE 11/23/2016 ALTAGRACIA WALLACE DO Ot C34.91 MALIGNANT NEOPLASM OF UNSP PART OF RIGHT 11/23/2016 WEST MCCAU[place] DO Ot 496 CHR AIRWAY OBSTRUCT NEC 11/23/2016 WEST M[place] DO Ot 786.50 CHEST PAIN NOS 11/23/2016 WEST MCCAULEY DO Ot 496 CHR AIRWAY OBSTRUCT NEC 11/23/2016 WE[place] M[place] DO A Ot 786.05 SHORTNESS OF BREATH 11/23/2016 PARISA QUINTANILLA, WEST Dom[place] Ot 786.2 COUGH 11/23/2016 PARISA QUINTANILLA, WEST [place] Ot 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 11/23/2016 PARISA QUINTANILLA, WEST Dominguez Ot 490 BRONCHITIS NOS 11/23/2016 PARISA QUINTANILLA, WEST Dominguez Ot 496 CHR AIRWAY OBSTRUCT NEC 11/23/2016 PARISA QUINTANILLA, WEST Dominguez Ot 491.20 OBSTR CHRONIC BRONCHITIS, W/O EXACERBATI 11/23/2016 PARISA QUINTANILLA, WEST Dominguez Ot 492.0 EMPHYSEMATOUS BLEB 11/23/2016 PARISA QUINTANILLA, WEST Dominguez Ot 724.5 BACKACHE NOS 11/23/2016 PARISA QUINTANILLA, WEST Dominguez Ot 786.05 SHORTNESS OF BREATH 11/23/2016 PARISA QUINTANILLA, WEST Dominguez Ot 786.2 COUGH 11/23/2016 PARISA QUINTANILLA, WEST Dominguez Ot 786.59 CHEST PAIN NEC 11/23/2016 PARISA QUINTANILLA, WEST Dominguez Ot 789.01 ABDOMINAL PAIN, RIGHT UPPER QUADRANT 11/23/2016 PARISA QUINTANILLA, WEST Dominguez Ot 789.01 ABDOMINAL PAIN, RIGHT UPPER QUADRANT 11/23/2016 PARISA QUINTANILLA, WEST Dominguez Ot 786.05 SHORTNESS OF BREATH 11/23/2016 PARISA QUINTANILLA, WEST Dominguez Ot 786.2 COUGH 11/23/2016 Ot V45.81 AORTOCORONARY BYPASS 11/23/2016 Ot V57.89 REHABILITATION PROC NEC 11/23/2016 Ot V58.73 AFTERCARE POST SURGERY CIRULATORY SYSTEM 11/23/2016 BAIMA, LEONA L ENGINEERING ILLUSTRATOR Ot 272.4 HYPERLIPIDEMIA NEC/NOS 11/23/2016 BAIMA, LEONA L ENGINEERING ILLUSTRATOR Ot 401.9 HYPERTENSION NOS 11/23/2016 BAIMA, LEONA L ENGINEERING ILLUSTRATOR Ot 414.00 CORON ATHEROSCLER NOS TYPE VESSEL, NATIV 11/23/2016 BAIMA, LEONA L ENGINEERING ILLUSTRATOR Ot 496 CHR AIRWAY OBSTRUCT NEC 11/23/2016 BAIMA, LEONA L ENGINEERING ILLUSTRATOR Ot V45.81 AORTOCORONARY BYPASS 11/23/2016 BAIMA, LEONA L ENGINEERING ILLUSTRATOR Ot 272.4 HYPERLIPIDEMIA NEC/NOS 11/23/2016 BAIMA, LEONA L ENGINEERING ILLUSTRATOR Ot 401.9 HYPERTENSION NOS 11/23/2016 BAIMA, LEONA L ENGINEERING ILLUSTRATOR Ot 414.00 CORON ATHEROSCLER NOS TYPE VESSEL, NATIV 11/23/2016 LEONA COLES ENGINEERING ILLUSTRATOR Ot 433.10 CAROTID ARTERY OCCLUSION W O CEREBRAL IN 11/23/2016 CHASTITYLEONA HENNING Porsche ENGINEERING ILLUSTRATOR Ot 496 CHR AIRWAY OBSTRUCT NEC 11/23/2016 SANKETLEONA ENGINEERING ILLUSTRATOR Ot V45.81 AORTOCORONARY BYPASS 11/23/2016 WEST MCCAULEY DO Ot J44.9 CHRONIC OBSTRUCTIVE PULMONARY DISEASE, U 11/23/2016 WEST MCCAULEY DO Ot R05 COUGH 11/23/2016 WEST MCCAULEY DO Ot R06.2 WHEEZING 11/23/2016 WEST MCCAULEY DO Ot Z99.81 DEPENDENCE ON SUPPLEMENTAL OXYGEN 11/23/2016 WEST MCCAULEY DO Ot J44.9 CHRONIC OBSTRUCTIVE PULMONARY DISEASE, U 11/23/2016 WEST MCCAULEY DO Ot R05 COUGH 11/23/2016 JENNY WHITAKERC, ALI FACP CCDS Ot I70.213 ATHSCL [place] ARTERIES OF EXTRM W INTRMT 11/23/2016 JENNY WHITAKERC, ALI FACP CCDS Ot E78.4 OTHER HYPERLIPIDEMIA 11/23/2016 JENNY WHITAKERC, ALI FACP CCDS Ot I10 ESSENTIAL (PRIMARY) HYPERTENSION 11/23/2016 JENNY WHITAKERC, ALI FACP CCDS Ot I25.10 ATHSCL HEART DISEASE OF [place] CORONARY 11/23/2016 JENNY CRAVEN FACC, ALI FACP CCDS Ot 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 11/23/2016 JENNY CRAVEN FACC, ALI FACP CCDS Ot I70.213 ATHSCL [place] ARTERIES OF EXTRM W INTRMT 11/23/2016 JENNY CRAVEN FACC, ALI FACP CCDS Ot J43.8 OTHER EMPHYSEMA 11/23/2016 JENNY CRAVEN FACC, ALI FACP CCDS Ot M79.605 PAIN IN LEFT LEG 11/23/2016 WEST MCCAULEY DO Ot J44.9 CHRONIC OBSTRUCTIVE PULMONARY DISEASE, U 11/23/2016 WEST MCCAULEY DO Ot R05 COUGH 11/23/2016 WEST MCCAULEY DO Ot R07.89 OTHER CHEST PAIN 11/23/2016 WEST MCCAULEY DO Ot J44.9 CHRONIC OBSTRUCTIVE PULMONARY DISEASE, U 11/23/2016 KRISTINE LOWERY Destiney Ot C34.91 MALIGNANT NEOPLASM OF UNSP PART OF RIGHT 11/23/2016 KRISTINE LOWERY Destiney Ot E07.9 DISORDER OF THYROID, UNSPECIFIED 11/23/2016 KRISTINE LOWERY Destiney Ot E78.5 HYPERLIPIDEMIA, UNSPECIFIED 11/23/2016 KRISTINE LOWERY Destiney Ot I10 ESSENTIAL (PRIMARY) HYPERTENSION 11/23/2016 SEBASTIÁN KRISTINE Cabello Ot I25.10 ATHSCL HEART DISEASE OF [place] CORONARY 11/23/2016 SEBASTIÁN SURESHMARLEN Destiney Ot J44.9 CHRONIC OBSTRUCTIVE PULMONARY DISEASE, U 11/23/2016 KRISTINE LOWERY Destiney Ot M54.6 PAIN IN THORACIC SPINE 11/23/2016 KRISTINE LOWERY Destiney Ot Z79.899 OTHER VENEER PATCHER (CURRENT) DRUG THERAPY 11/23/2016 SEBASTIÁN SURESHMARLEN Destiney Ot R91.1 SOLITARY PULMONARY NODULE 11/23/2016 SEBASTIÁN SURESHMARLEN eDstiney Ot M48.54XA COLLAPSED VERTEBRA, NEC, THORACIC REGION 11/23/2016 SEBASTIÁN SURESHMARLEN Destiney Ot N26.1 ATROPHY OF KIDNEY (TERMINAL) 11/23/2016 SEBASTIÁN SURESHMARLEN N Ot R91.1 SOLITARY PULMONARY NODULE 11/23/2016 NICK CASTANEDA APRN Ot C34.90 MALIGNANT NEOPLASM OF UNSP PART OF UNSP 11/23/2016 NICK CASTANEDA APRN Ot J43.8 OTHER EMPHYSEMA 11/23/2016 SEBASTIÁN, KRISTINE N Ot C34.90 MALIGNANT NEOPLASM OF UNSP PART OF UNSP 11/23/2016 SEBASTIÁN SURESHMARLEN Destiney Ot M48.54XA COLLAPSED VERTEBRA, NEC, THORACIC REGION 11/23/2016 ALTAGRACIA WALLACE DO Ot C34.91 MALIGNANT NEOPLASM OF UNSP PART OF RIGHT 11/30/2016 SEBASTIÁN KRISTINE N Ot M48.54XA COLLAPSED VERTEBRA, NEC, THORACIC REGION 11/30/2016 SEBASTIÁN KRISTINE Cabello Ot N26.1 ATROPHY OF KIDNEY (TERMINAL) 11/30/2016 SEBASTIÁN SURESHMARLEN N Ot R91.1 SOLITARY PULMONARY NODULE 12/25/2016 ALTAGRACIA WALLACE DO Ot C34.91 MALIGNANT NEOPLASM OF UNSP PART OF RIGHT 12/26/2016 SEBASTIÁNKRISTINE Ot C34.91 MALIGNANT NEOPLASM OF UNSP PART OF RIGHT 12/26/2016 SEBASTIÁN BOBAN N Ot E07.9 DISORDER OF THYROID, UNSPECIFIED 12/26/2016 SEBASTIÁNKRISTINE N Ot E78.5 HYPERLIPIDEMIA, UNSPECIFIED 12/26/2016 SEBASTIÁNKRISTINE N Ot I10 ESSENTIAL (PRIMARY) HYPERTENSION 12/26/2016 SEBASTIÁNKRISTINE N Ot I25.10 ATHSCL HEART DISEASE OF [place] CORONARY 12/26/2016 SEBASTIÁNKRISTINE N Ot J44.9 CHRONIC OBSTRUCTIVE PULMONARY DISEASE, U 12/26/2016 KRISTINE LOWERY N Ot M54.6 PAIN IN THORACIC SPINE 12/26/2016 KRISTINE LOWERY N Ot Z51.0 ENCOUNTER FOR ANTINEOPLASTIC RADIATION T 12/26/2016 KRISTINE LOWERY N Ot Z51.11 ENCOUNTER FOR ANTINEOPLASTIC CHEMOTHERAP 12/26/2016 KRISTINE LOWERY N Ot Z79.899 OTHER VENEER PATCHER (CURRENT) DRUG THERAPY 01/04/2017 KRISTINE LOWERY N Ot C34.91 MALIGNANT NEOPLASM OF UNSP PART OF RIGHT 01/04/2017 KRISTINE LOWERY Ot E07.9 DISORDER OF THYROID, UNSPECIFIED 01/04/2017 KRISTINE LOWERY N Ot E78.5 HYPERLIPIDEMIA, UNSPECIFIED 01/04/2017 SEBASTIÁNKRISTINE N Ot I10 ESSENTIAL (PRIMARY) HYPERTENSION 01/04/2017 KRISTINE LOWERY N Ot I25.10 ATHSCL HEART DISEASE OF [place] CORONARY 01/04/2017 KRISTINE LOWERY N Ot J44.9 CHRONIC OBSTRUCTIVE PULMONARY DISEASE, U 01/04/2017 KRISTINE LOWERY N Ot M54.6 PAIN IN THORACIC SPINE 01/04/2017 KRISTINE LOWERY Ot Z51.0 ENCOUNTER FOR ANTINEOPLASTIC RADIATION T 01/04/2017 KRISTINE LOWERY N Ot Z51.11 ENCOUNTER FOR ANTINEOPLASTIC CHEMOTHERAP 01/04/2017 KRISTINE LOWERY N Ot Z79.899 OTHER VENEER PATCHER (CURRENT) DRUG THERAPY 01/04/2017 KRISTINE LOWERY N Ot E83.42 HYPOMAGNESEMIA 01/04/2017 KRISTINE LOWERY N Ot R94.4 ABNORMAL RESULTS OF KIDNEY FUNCTION STUD 01/23/2017 KRISTINE LOWERY N Ot C34.31 MALIGNANT NEOPLASM OF LOWER LOBE, RIGHT 01/23/2017 KRISTINE LOWERY Ot Z01.89 ENCOUNTER FOR OTHER SPECIFIED SPECIAL EX 01/25/2017 SEBASTIÁN SURESHMARLEN Destiney Ot M48.52XG COLLAPSED VERT, NEC, CERV REGION, SUBS F 01/25/2017 SEBASTIÁN SURESHMARLEN Destiney Ot S32.020A WEDGE COMPRESSION FRACTURE OF SECOND LUM 01/28/2017 KRISTINE LOWERY Destiney Ot C34.31 MALIGNANT NEOPLASM OF LOWER LOBE, RIGHT 01/29/2017 Ot V45.81 AORTOCORONARY BYPASS 01/29/2017 Ot V57.89 REHABILITATION PROC NEC 01/29/2017 Ot V58.73 AFTERCARE POST SURGERY CIRULATORY SYSTEM 01/29/2017 BAIMA, LEONA L ENGINEERING ILLUSTRATOR Ot 272.4 HYPERLIPIDEMIA NEC/NOS 01/29/2017 BAIMA, LEONA L ENGINEERING ILLUSTRATOR Ot 401.9 HYPERTENSION NOS 01/29/2017 BAIMA, LEONA L ENGINEERING ILLUSTRATOR Ot 414.00 CORON ATHEROSCLER NOS TYPE VESSEL, NATIV 01/29/2017 BAIMA, LEONA L ENGINEERING ILLUSTRATOR Ot 496 CHR AIRWAY OBSTRUCT NEC 01/29/2017 SANKET, LEONA L ENGINEERING ILLUSTRATOR Ot V45.81 AORTOCORONARY BYPASS 01/29/2017 SEBASTIÁNKRISTINE Ot S32.020A WEDGE COMPRESSION FRACTURE OF SECOND LUM 01/29/2017 WEST MCCAULEY DO Ot E78.5 HYPERLIPIDEMIA, UNSPECIFIED 01/29/2017 WEST MCCAULEY DO Ot F41.9 ANXIETY DISORDER, UNSPECIFIED 01/29/2017 WEST MCCAULEY DO Ot I10 ESSENTIAL (PRIMARY) HYPERTENSION 01/29/2017 WEST MCCAULEY DO Ot I25.10 ATHSCL HEART DISEASE OF [place] CORONARY 01/29/2017 WEST MCCAULEY DO Ot J30.2 OTHER SEASONAL ALLERGIC RHINITIS 01/29/2017 WEST MCCAULEY DO Ot J44.1 CHRONIC OBSTRUCTIVE PULMONARY DISEASE W 01/29/2017 WEST MCCAULEY DO Ot K29.70 GASTRITIS, UNSPECIFIED, WITHOUT BLEEDING 01/29/2017 WEST MCCAULEY DO Ot K59.00 CONSTIPATION, UNSPECIFIED 01/29/2017 CHANDANALENDER WEST QUINTANILLA Ot M19.91 PRIMARY OSTEOARTHRITIS, UNSPECIFIED SITE 01/29/2017 WEST MCCAULEY DO Ot R63.0 ANOREXIA 01/29/2017 WEST MCCAULEY DO Ot Z85.118 PERSONAL HISTORY OF MALIGNANT NEOPLASM O 01/29/2017 GELWEST VERMA DO Ot Z87.891 PERSONAL HISTORY OF NICOTINE DEPENDENCE 01/29/2017 CHANDANALUCI WEST QUINTANILLA Ot Z90.2 ACQUIRED ABSENCE OF LUNG [PART OF] 01/29/2017 WEST MCCAULEY DO Ot Z95.1 PRESENCE OF AORTOCORONARY BYPASS GRAFT 01/29/2017 WEST MCCAULEY DO Ot Z95.5 PRESENCE OF CORONARY ANGIOPLASTY IMPLANT 01/29/2017 WEST MCCAULEY DO Ot Z99.81 DEPENDENCE ON SUPPLEMENTAL OXYGEN 01/30/2017 Ot V45.81 AORTOCORONARY BYPASS 01/30/2017 Ot V57.89 REHABILITATION PROC NEC 01/30/2017 Ot V58.73 AFTERCARE POST SURGERY CIRULATORY SYSTEM 01/30/2017 BAIMA, LEONA L ENGINEERING ILLUSTRATOR Ot 272.4 HYPERLIPIDEMIA NEC/NOS 01/30/2017 BAIMA, LEONA L ENGINEERING ILLUSTRATOR Ot 401.9 HYPERTENSION NOS 01/30/2017 BAIMA, LEONA L ENGINEERING ILLUSTRATOR Ot 414.00 CORON ATHEROSCLER NOS TYPE VESSEL, NATIV 01/30/2017 SANKET LEONA L ENGINEERING ILLUSTRATOR Ot 496 CHR AIRWAY OBSTRUCT NEC 01/30/2017 SANKET LEONA L ENGINEERING ILLUSTRATOR Ot V45.81 AORTOCORONARY BYPASS 01/30/2017 KRISTINE LOWERY Ot S32.020A WEDGE COMPRESSION FRACTURE OF SECOND LUM 01/30/2017 WEST MCCAULEY DO Ot E78.5 HYPERLIPIDEMIA, UNSPECIFIED 01/30/2017 WEST MCCAULEY DO Ot F41.9 ANXIETY DISORDER, UNSPECIFIED 01/30/2017 WEST MCCAULEY DO Ot I10 ESSENTIAL (PRIMARY) HYPERTENSION 01/30/2017 WEST MCCAULEY DO Ot I25.10 ATHSCL HEART DISEASE OF [place] CORONARY 01/30/2017 WEST MCCAULEY DO Ot J30.2 OTHER SEASONAL ALLERGIC RHINITIS 01/30/2017 WEST MCCAULEY DO Ot J44.1 CHRONIC OBSTRUCTIVE PULMONARY DISEASE W 01/30/2017 WEST MCCAULEY DO Ot K29.70 GASTRITIS, UNSPECIFIED, WITHOUT BLEEDING 01/30/2017 WEST MCCAULEY DO Ot K59.00 CONSTIPATION, UNSPECIFIED 01/30/2017 WEST MCCAULEY DO Ot M19.91 PRIMARY OSTEOARTHRITIS, UNSPECIFIED SITE 01/30/2017 WEST MCCAULEY DO Ot R63.0 ANOREXIA 01/30/2017 PARISA QUINTANILLAWEST Ot Z85.118 PERSONAL HISTORY OF MALIGNANT NEOPLASM O 01/30/2017 [facility] Z87.891 PERSONAL HISTORY OF NICOTINE DEPENDENCE 01/30/2017 [facility] WEST QUINTANILLA Ot Z90.2 ACQUIRED ABSENCE OF LUNG [PART OF] 01/30/2017 [facility] WEST Ot Z95.1 PRESENCE OF AORTOCORONARY BYPASS GRAFT 01/30/2017 [facility] WEST QUINTANILLA Ot Z95.5 PRESENCE OF CORONARY ANGIOPLASTY IMPLANT 01/30/2017 [facility] Ot Z99.81 DEPENDENCE ON SUPPLEMENTAL OXYGEN 01/31/2017 [facility] WE[facility] QUINTANILLA Ot E78.5 HYPERLIPIDEMIA, UNSPECIFIED 01/31/2017 [facility] WEST QUINTANILLA Ot F41.9 ANXIETY DISORDER, UNSPECIFIED 01/31/2017 [facility] WEST QUINTANILLA Ot I10 ESSENTIAL (PRIMARY) HYPERTENSION 01/31/2017 [facility] WEST QUINTANILLA Ot I25.10 ATHSCL HEART DISEASE OF [place] CORONARY 01/31/2017 [facility] WEST QUINTANILLA Ot J30.2 OTHER SEASONAL ALLERGIC RHINITIS 01/31/2017 [facility] J44.1 CHRONIC OBSTRUCTIVE PULMONARY DISEASE W 01/31/2017 [facility] WEST QUINTANILLA Ot K29.70 GASTRITIS, UNSPECIFIED, WITHOUT BLEEDING 01/31/2017 [facility] WEST QUINTANILLA Ot K59.00 CONSTIPATION, UNSPECIFIED 01/31/2017 [facility] QUINT[facility] Ot M19.91 PRIMARY OSTEOARTHRITIS, UNSPECIFIED SITE 01/31/2017 WEST MCCAULEY DO Ot R63.0 ANOREXIA 01/31/2017 [facility] WEST QUINTANILLA Ot Z85.118 PERSONAL HISTORY OF MALIGNANT NEOPLASM O 01/31/2017 [facility] WEST Ot Z87.891 PERSONAL HISTORY OF NICOTINE DEPENDENCE 01/31/2017 [facility] DO Ot Z90.2 ACQUIRED ABSENCE OF LUNG [PART OF] 01/31/2017 [facility] WEST QUINTANILLA Ot Z95.1 PRESENCE OF AORTOCORONARY BYPASS GRAFT 01/31/2017 WEST MCCAULEY DO Ot Z95.5 PRESENCE OF CORONARY ANGIOPLASTY IMPLANT 01/31/2017 [facility] WEST QUINTANILLA Ot Z99.81 DEPENDENCE ON SUPPLEMENTAL OXYGEN 01/31/2017 PARISA QUINTANILLAWEST Ot B96.5 PSEUDOMONAS (MALLEI) CAUSING DISEASES CL 01/31/2017 PARISA QUINTANILLAWEST Ot C34.01 MALIGNANT NEOPLASM OF RIGHT MAIN BRONCHU 01/31/2017 PARISA QUINTANILLAWEST Ot E03.9 HYPOTHYROIDISM, UNSPECIFIED 01/31/2017 PARISA QUINTANILLAWEST Ot E78.5 HYPERLIPIDEMIA, UNSPECIFIED 01/31/2017 PARISA QUINTANILLAWEST Ot F41.9 ANXIETY DISORDER, UNSPECIFIED 01/31/2017 PARISA QUINTANILLAWEST Ot I10 ESSENTIAL (PRIMARY) HYPERTENSION 01/31/2017 PARISA QUINTANILLA, WEST Dominguez Ot I25.10 ATHSCL HEART DISEASE OF [place] CORONARY 01/31/2017 PARISA QUINTANILLAWEST Ot I27.29 OTHER SECONDARY PULMONARY HYPERTENSION 01/31/2017 PARISA QUINTANILLAWEST Ot I73.9 PERIPHERAL VASCULAR DISEASE, UNSPECIFIED 01/31/2017 PARISA QUINTANILLAWEST Ot J30.2 OTHER SEASONAL ALLERGIC RHINITIS 01/31/2017 PARISA QUINTANILLAWEST Ot J44.1 CHRONIC OBSTRUCTIVE PULMONARY DISEASE W 01/31/2017 PARISA QUINTANILLAWEST Ot K29.70 GASTRITIS, UNSPECIFIED, WITHOUT BLEEDING 01/31/2017 PARISA QUINTANILLAWEST Ot K59.00 CONSTIPATION, UNSPECIFIED 01/31/2017 PARISA QUINTANILLAWEST Ot M19.91 PRIMARY OSTEOARTHRITIS, UNSPECIFIED SITE 01/31/2017 PARISA QUINTANILLAWEST Ot 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, L HUMER 01/31/2017 PARISA QUINTANILLAWEST Ot M80.08XD AGE-REL OSTEOPOR W CRNT PATH FX, VERTE[place], 01/31/2017 PARISA QUINTANILLAWEST Ot R63.0 ANOREXIA 01/31/2017 PARISA WEST QUINTANILLA Ot Z23 ENCOUNTER FOR IMMUNIZATION 01/31/2017 WEST MCCAULEY DO Ot Z85.118 PERSONAL HISTORY OF MALIGNANT NEOPLASM O 01/31/2017 PARISA WEST QUINTANILLA Ot Z87.891 PERSONAL HISTORY OF NICOTINE DEPENDENCE 01/31/2017 CHANDANANILSLEEANN WEST QUINTANILLA Ot Z90.2 ACQUIRED ABSENCE OF LUNG [PART OF] 01/31/2017 SHIELALEEANN WEST QUINTANILLA Ot Z92.21 PERSONAL HISTORY OF ANTINEOPLASTIC CHEMO 01/31/2017 WEST MCCAULEY DO Ot Z92.3 PERSONAL HISTORY OF IRRADIATION 01/31/2017 WEST MCCAULEY DO Ot Z95.1 PRESENCE OF AORTOCORONARY BYPASS GRAFT 01/31/2017 WEST MCCAULEY DO Ot Z95.5 PRESENCE OF CORONARY ANGIOPLASTY IMPLANT 01/31/2017 WEST MCCAULEY DO Ot Z95.820 PERIPHERAL VASCULAR ANGIOPLASTY STATUS W 01/31/2017 WEST MCCAULEY DO Ot Z99.81 DEPENDENCE ON SUPPLEMENTAL OXYGEN 02/14/2017 KRISTINE LOWERY Destiney Ot S32.020A WEDGE COMPRESSION FRACTURE OF SECOND LUM 02/14/2017 KRISTINE LOWERY Destiney Ot C34.31 MALIGNANT NEOPLASM OF LOWER LOBE, RIGHT 02/14/2017 KRISTINE LOWERY Destiney Ot Z01.89 ENCOUNTER FOR OTHER SPECIFIED SPECIAL EX 02/19/2017 KRISTINE LOWERY Destiney Ot S32.020A WEDGE COMPRESSION FRACTURE OF SECOND LUM 02/20/2017 PARISA QUINTANILLA, WEST Dominguez Ot J44.9 CHRONIC OBSTRUCTIVE PULMONARY DISEASE, U 02/22/2017 KRISTINE LOWERY Destiney Ot C34.31 MALIGNANT NEOPLASM OF LOWER LOBE, RIGHT 03/12/2017 WEST MCCAULEY DO Ot J44.9 CHRONIC OBSTRUCTIVE PULMONARY DISEASE, U Procedures There is no data. Results Test Result Range Automated blood complete blood count (hemogram) panel - 03/20/16 09:30 Blood leukocytes automated count (number/volume) 5.8 10*3/uL 4.3-11.0 Blood erythrocytes automated count (number/volume) 4.07 10*6/uL 4.35-5.85 Venous blood hemoglobin measurement (mass/volume) 12.7 [...] Automated blood platelet mean volume measurement 10.3 [foz_us] 7.4-10.4 PT panel in platelet poor plasma [...] Serum or plasma sodium measurement (moles/volume) 141 mmol/L 135-145 Serum or plasma potassium measurement (moles/volume) 4.0 mmol/L 3.6-5.0 Serum or plasma chloride measurement (moles/volume) 101 mmol/L 98-107 Carbon dioxide 33 mmol/L 21-32 Serum or plasma anion gap determination (moles/volume) 7 mmol/L 5-14 Serum or plasma urea nitrogen measurement (mass/volume) 13 mg/dL 7-18 Serum or plasma creatinine measurement (mass/volume) 0.84 mg/dL 0.60-1.30 Serum or plasma urea nitrogen/creatinine mass [...] Serum or plasma triglyceride measurement (mass/volume) 50 mg/dL <150 Serum or plasma cholesterol measurement (mass/volume) 142 mg/dL < 200 Serum or plasma cholesterol in HDL measurement (mass/volume) 63 mg/ dL 40-60 Cholesterol in LDL [mass/volume] in serum or plasma by direct assay 60 mg/dL 1-129 Serum or plasma cholesterol in VLDL measurement (mass/volume) 10 mg/ dL 5-40 Methicillin resistant Staphylococcus aureus (MRSA) screening [...] 04:00 Blood leukocytes automated count (number/volume) 6.0 10*3/uL 4.3-11.0 Blood erythrocytes automated count (number/volume) 3.65 10*6/uL 4.35-5.85 Venous blood hemoglobin measurement (mass/volume) 10.9 [...] Automated blood platelet mean volume measurement 10.9 [foz_us] 7.4-10.4 Automated blood neutrophils/100 leukocytes 69 % [...] Serum or plasma sodium measurement (moles/volume) 139 mmol/L 135-145 Serum or plasma potassium measurement (moles/volume) 3.9 mmol/L 3.6-5.0 Serum or plasma chloride measurement (moles/volume) 104 mmol/L 98-107 Carbon dioxide 25 mmol/L 21-32 Serum or plasma anion gap determination (moles/volume) 10 mmol/L 5-14 Serum or plasma urea nitrogen measurement (mass/volume) 14 mg/dL 7-18 Serum or plasma creatinine measurement (mass/volume) 0.80 mg/dL 0.60-1.30 Serum or plasma urea nitrogen/creatinine mass ratio 18 NRG Serum or plasma creatinine measurement with calculation of estimated glomerular filtration rate > NRG Serum or plasma glucose measurement (mass/volume) 86 mg/dL 70-105 Serum or plasma calcium measurement (mass/volume) 8.2 mg/dL 8.5-10.1 Serum or plasma phosphate measurement (mass/volume) - 03/21/16 04:00 Serum or plasma phosphate measurement (mass/volume) 4.0 mg/dL 2.3-4.7 Magnesium - 03/21/16 04:00 Magnesium 1.9 mg/dL 1.8-2.4 Complete blood count (CBC) with automated white blood cell (WBC) differential - 04/18/16 12:45 Blood leukocytes automated count (number/volume) 10.5 10*3/uL 4.3-11.0 Blood erythrocytes automated count (number/volume) 4.06 10*6/uL 4.35-5.85 Venous blood hemoglobin measurement (mass/volume) 12.3 [...] Automated blood platelet mean volume measurement 10.3 [chi [facility]_us] 7.4-10.4 Automated blood neutrophils/100 leukocytes 71 % [...] Serum or plasma sodium measurement (moles/volume) 141 mmol/L 135-145 Serum or plasma potassium measurement (moles/volume) 3.9 mmol/L 3.6-5.0 Serum or plasma chloride measurement (moles/volume) 94 mmol/L 98-107 Carbon dioxide 38 mmol/L 21-32 Serum or plasma anion gap determination (moles/volume) 9 mmol/L 5-14 Serum or plasma urea nitrogen measurement (mass/volume) 14 mg/dL 7-18 Serum or plasma creatinine measurement (mass/volume) 0.88 mg/dL 0.60-1.30 Serum or plasma urea nitrogen/creatinine mass [...] or plasma troponin i.cardiac measurement (mass/volume) < ng/ mL <0.30 Serum or plasma lithium measurement (moles/volume) - 04/18/16 12:45 BNP level 481.4 pg/mL <100.0 Arterial blood gas measurement - 04/18/16 13:00 Blood pCO2 70 mm[Hg] 35-45 Blood pO2 56 mm[Hg] 79-93 Arterial blood bicarbonate measurement (moles/volume) 41 mmol/L 23-27 Arterial blood base excess by calculation 12.9 mmol/L - 2.5-2.5 Arterial blood oxygen saturation measurement 92 % [...] or plasma troponin i.cardiac measurement (mass/volume) < ng/ mL <0.30 Sputum Gram stain - 04/18/16 21:08 GRAM STAIN SPUTUM FEW GRAM POSITIVE RODS NRG Bacterial sputum culture - 04/18/16 21:08 FREE TEXT EXTERNAL PLUS NORMAL MARCELLO NRG QUANTITY OF GROWTH Moderate Growth NRG Bacterial sputum culture [id number] [facility] Bacterial susceptibility panel - 04/18/16 21:08 Gentamicin susceptibility test by minimum inhibitory concentration < = NRG Tobramycin susceptibility test by minimum inhibitory concentration < = NRG Piperacillin/tazobactam susceptibility test by minimum inhibitory concentration <= NRG Ciprofloxacin susceptibility test by minimum inhibitory concentration 0.5 NRG Meropenem susceptibility test by minimum inhibitory concentration < = NRG Cefepime susceptibility test by minimum inhibitory concentration 2 NRG Serum or plasma troponin i.cardiac measurement (mass/volume) - 04/19/16 00:32 Serum or plasma troponin i.cardiac measurement (mass/volume) < ng/ mL <0.30 Complete blood count (CBC) with automated white blood cell (WBC) differential - 04/19/16 06:19 Blood leukocytes automated count (number/volume) 8.9 10*3/uL 4.3-11.0 Blood erythrocytes automated count (number/volume) 4.04 10*6/uL 4.35-5.85 Venous blood hemoglobin measurement (mass/volume) 12.1 [...] Automated blood platelet mean volume measurement 10.6 [foz_us] 7.4-10.4 Automated blood neutrophils/100 leukocytes 92 % [...] Serum or plasma sodium measurement (moles/volume) 140 mmol/L 135-145 Serum or plasma potassium measurement (moles/volume) 4.1 mmol/L 3.6-5.0 Serum or plasma chloride measurement (moles/volume) 97 mmol/L 98-107 Carbon dioxide 34 mmol/L 21-32 Serum or plasma anion gap determination (moles/volume) 9 mmol/L 5-14 Serum or plasma urea nitrogen measurement (mass/volume) 13 mg/dL 7-18 Serum or plasma creatinine measurement (mass/volume) 0.86 mg/dL 0.60-1.30 Serum or plasma urea nitrogen/creatinine mass [...] NRG Blood erythrocyte morphology finding identification [facility] Automated blood complete blood count (hemogram) panel - 07/03/16 07:56 Blood leukocytes automated count (number/volume) 9.6 10*3/uL 4.3-11.0 Blood erythrocytes automated count (number/volume) 4.11 10*6/uL 4.35-5.85 Venous blood hemoglobin measurement (mass/volume) 11.9 [...] Automated blood platelet mean volume measurement 10.5 [foz_us] 7.4-10.4 PT panel in platelet poor plasma [...] Serum or plasma sodium measurement (moles/volume) 139 mmol/L 135-145 Serum or plasma potassium measurement (moles/volume) 4.8 mmol/L 3.6-5.0 Serum or plasma chloride measurement (moles/volume) 96 mmol/L 98-107 Carbon dioxide 33 mmol/L 21-32 Serum or plasma anion gap determination (moles/volume) 10 mmol/L 5-14 Serum or plasma urea nitrogen measurement (mass/volume) 19 mg/dL 7-18 Serum or plasma creatinine measurement (mass/volume) 0.89 mg/dL 0.60-1.30 Serum or plasma urea nitrogen/creatinine mass [...] Serum or plasma triglyceride measurement (mass/volume) 85 mg/dL <150 Serum or plasma cholesterol measurement (mass/volume) 145 mg/dL < 200 Serum or plasma cholesterol in HDL measurement (mass/volume) 48 mg/ dL 40-60 Cholesterol in LDL [mass/volume] in serum or plasma by direct assay 75 mg/dL 1-129 Serum or plasma cholesterol in VLDL measurement (mass/volume) 17 mg/ dL 5-40 Methicillin resistant Staphylococcus aureus (MRSA) screening culture - 07:56 Methicillin resistant Staphylococcus aureus (MRSA) screening culture NEG NRG Complete blood count (CBC) with automated white blood cell (WBC) differential - 08/02/16 13:14 Blood leukocytes automated count (number/volume) 8.4 10*3/uL 4.3-11.0 Blood erythrocytes automated count (number/volume) 3.85 10*6/uL 4.35-5.85 Venous blood hemoglobin measurement (mass/volume) 11.3 g/dL 11.5-16.0 Blood hematocrit (volume fraction) 37 % 35-52 Automated erythrocyte mean corpuscular volume 97 [foz_us] 80-99 Automated erythrocyte mean corpuscular hemoglobin (mass per erythrocyte) 29 pg 25-34 Automated erythrocyte mean corpuscular hemoglobin concentration measurement ( mass/volume) 30 g/dL 32-36 Automated erythrocyte distribution width ratio 15.3 % 10.0-14.5 Automated blood platelet count (count/volume) 360 10*3/uL 130-400 Automated blood platelet mean volume measurement 9.8 [foz_us] 7.4-10.4 Automated blood neutrophils/100 leukocytes 78 % 42-75 Automated blood lymphocytes/100 leukocytes 10 % 12-44 Blood monocytes/100 leukocytes 7 % 0-12 Automated blood eosinophils/100 leukocytes 4 % 0-10 Automated blood basophils/100 leukocytes 0 % 0-10 Blood neutrophils automated count (number/volume) 6.6 10*3 1.8-7.8 Blood lymphocytes automated count (number/volume) 0.8 10*3 1.0-4.0 Blood monocytes automated count (number/volume) 0.6 10*3 0.0-1.0 Automated eosinophil count 0.3 10*3/uL 0.0-0.3 Automated blood basophil count (count/volume) 0.0 10*3/uL 0.0-0.1 Complete blood count (CBC) with automated white blood cell (WBC) differential - 09/04/16 15:13 Blood leukocytes automated count (number/volume) 7.6 10*3/uL 4.3-11.0 Blood erythrocytes automated count (number/volume) 3.68 10*6/uL 4.35-5.85 Venous blood hemoglobin measurement (mass/volume) 10.8 g/dL 11.5-16.0 Blood hematocrit (volume fraction) 37 % 35-52 Automated erythrocyte mean corpuscular volume 100 [foz_us] 80-99 Automated erythrocyte mean corpuscular hemoglobin (mass per erythrocyte) 29 pg 25-34 Automated erythrocyte mean corpuscular hemoglobin concentration measurement ( mass/volume) 30 g/dL 32-36 Automated erythrocyte distribution width ratio 15.1 % 10.0-14.5 Automated blood platelet count (count/volume) 354 10*3/uL 130-400 Automated blood platelet mean volume measurement 9.9 [foz_us] 7.4-10.4 Automated blood neutrophils/100 leukocytes 70 % 42-75 Automated blood lymphocytes/100 leukocytes 17 % 12-44 Blood monocytes/100 leukocytes 9 % 0-12 Automated blood eosinophils/100 leukocytes 4 % 0-10 Automated blood basophils/100 leukocytes 0 % 0-10 Blood neutrophils automated count (number/volume) 5.3 10*3 1.8-7.8 Blood lymphocytes automated count (number/volume) 1.3 10*3 1.0-4.0 Blood monocytes automated count (number/volume) 0.6 10*3 0.0-1.0 Automated eosinophil count 0.3 10*3/uL 0.0-0.3 Automated blood basophil count (count/volume) 0.0 10*3/uL 0.0-0.1 PT panel in platelet poor plasma by coagulation assay - 09/04/16 15:13 Prothrombin time (PT) in platelet poor plasma by coagulation assay 12.9 s 12.2-14.7 INR in platelet poor plasma or blood by coagulation assay 1.0 0.8-1.4 Activated partial thromboplastin time (aPTT) in platelet poor plasma bycoagulation assay - 09/04/16 15:13 Activated partial thromboplastin time (aPTT) in platelet poor plasma bycoagulation assay 29 s 24-35 Fibrin D-dimer FEU measurement in platelet poor plasma (mass/volume) - 15:13 Fibrin D-dimer FEU measurement in platelet poor plasma (mass/volume) 0.70 ug/mL 0.00-0.49 Comprehensive metabolic panel - 09/04/16 15:13 Serum or plasma sodium measurement (moles/volume) 142 mmol/L 135-145 Serum or plasma potassium measurement (moles/volume) 4.2 mmol/L 3.6-5.0 Serum or plasma chloride measurement (moles/volume) 96 mmol/L 98-107 Carbon dioxide 38 mmol/L 21-32 Serum or plasma anion gap determination (moles/volume) 8 mmol/L 5-14 Serum or plasma urea nitrogen measurement (mass/volume) 11 mg/dL 7-18 Serum or plasma creatinine measurement (mass/volume) 0.96 mg/dL 0.60-1.30 Serum or plasma urea nitrogen/creatinine mass ratio 11 NRG Serum or plasma creatinine measurement with calculation of estimated glomerular filtration rate 57 NRG Serum or plasma glucose measurement (mass/volume) 117 mg/dL 70-105 Serum or plasma calcium measurement (mass/volume) 9.5 mg/dL 8.5-10.1 Serum or plasma total bilirubin measurement (mass/volume) 0.4 mg/dL 0.1-1.0 Serum or plasma alkaline phosphatase measurement (enzymatic activity/volume) 91 U/L 40-136 Serum or plasma aspartate aminotransferase measurement (enzymatic activity/ volume) 23 U/L 5-34 Serum or plasma alanine aminotransferase measurement (enzymatic activity/volume ) 25 U/L 0-55 Serum or plasma protein measurement (mass/volume) 6.9 g/dL 6.4-8.2 Serum or plasma albumin measurement (mass/volume) 3.7 g/dL 3.2-4.5 Magnesium - 09/04/16 15:13 Magnesium 1.8 mg/dL 1.8-2.4 Serum or plasma troponin i.cardiac measurement (mass/volume) - 09/04/16 15:13 Serum or plasma troponin i.cardiac measurement (mass/volume) < ng/ mL <0.30 Myoglobin, serum - 09/04/16 15:13 Myoglobin, serum 62.6 ng/mL 10.0-92.0 Serum or plasma lithium measurement (moles/volume) - 09/04/16 15:13 BNP level 397.6 pg/mL <100.0 Serum or plasma troponin i.cardiac measurement (mass/volume) - 09/04/16 22:22 Serum or plasma troponin i.cardiac measurement (mass/volume) < ng/ mL <0.30 Lipid 1996 panel - 09/05/16 05:32 Serum or plasma triglyceride measurement (mass/volume) 42 mg/dL <150 Serum or plasma cholesterol measurement (mass/volume) 141 mg/dL < 200 Serum or plasma cholesterol in HDL measurement (mass/volume) 56 mg/ dL 40-60 Cholesterol in LDL [mass/volume] in serum or plasma by direct assay 60 mg/dL 1-129 Serum or plasma cholesterol in VLDL measurement (mass/volume) 8 mg/ dL 5-40 Complete blood count (CBC) with automated white blood cell (WBC) differential - 09/06/16 05:16 Blood leukocytes automated count (number/volume) 14.6 10*3/uL 4.3-11.0 Blood erythrocytes automated count (number/volume) 3.61 10*6/uL 4.35-5.85 Venous blood hemoglobin measurement (mass/volume) 10.6 g/dL 11.5-16.0 Blood hematocrit (volume fraction) 35 % 35-52 Automated erythrocyte mean corpuscular volume 98 [foz_us] 80-99 Automated erythrocyte mean corpuscular hemoglobin (mass per erythrocyte) 29 pg 25-34 Automated erythrocyte mean corpuscular hemoglobin concentration measurement ( mass/volume) 30 g/dL 32-36 Automated erythrocyte distribution width ratio 15.6 % 10.0-14.5 Automated blood platelet count (count/volume) 411 10*3/uL 130-400 Automated blood platelet mean volume measurement 10.7 [foz_us] 7.4-10.4 Automated blood neutrophils/100 leukocytes 94 % 42-75 Automated blood lymphocytes/100 leukocytes 3 % 12-44 Blood monocytes/100 leukocytes 3 % 0-12 Automated blood eosinophils/100 leukocytes 0 % 0-10 Automated blood basophils/100 leukocytes 0 % 0-10 Blood neutrophils automated count (number/volume) 13.7 10*3 1.8-7.8 Blood lymphocytes automated count (number/volume) 0.5 10*3 1.0-4.0 Blood monocytes automated count (number/volume) 0.4 10*3 0.0-1.0 Automated eosinophil count 0.0 10*3/uL 0.0-0.3 Automated blood basophil count (count/volume) 0.0 10*3/uL 0.0-0.1 Comprehensive metabolic panel - 09/06/16 05:16 Serum or plasma sodium measurement (moles/volume) 136 mmol/L 135-145 Serum or plasma potassium measurement (moles/volume) 4.1 mmol/L 3.6-5.0 Serum or plasma chloride measurement (moles/volume) 92 mmol/L 98-107 Carbon dioxide 33 mmol/L 21-32 Serum or plasma anion gap determination (moles/volume) 11 mmol/L 5-14 Serum or plasma urea nitrogen measurement (mass/volume) 14 mg/dL 7-18 Serum or plasma creatinine measurement (mass/volume) 0.94 mg/dL 0.60-1.30 Serum or plasma urea nitrogen/creatinine mass ratio 15 NRG Serum or plasma creatinine measurement with calculation of estimated glomerular filtration rate 59 NRG Serum or plasma glucose measurement (mass/volume) 224 mg/dL 70-105 Serum or plasma calcium measurement (mass/volume) 9.7 mg/dL 8.5-10.1 Serum or plasma total bilirubin measurement (mass/volume) 0.3 mg/dL 0.1-1.0 Serum or plasma alkaline phosphatase measurement (enzymatic activity/volume) 89 U/L 40-136 Serum or plasma aspartate aminotransferase measurement (enzymatic activity/ volume) 23 U/L 5-34 Serum or plasma alanine aminotransferase measurement (enzymatic activity/volume ) 26 U/L 0-55 Serum or plasma protein measurement (mass/volume) 6.9 g/dL 6.4-8.2 Serum or plasma albumin measurement (mass/volume) 3.8 g/dL 3.2-4.5 Sputum Gram stain - 09/12/16 10:30 Sputum Gram stain rods NRG Bacteria identification in bronchial specimen by aerobe culture - 09/12/16 10: 30 QUANTITY OF GROWTH Scant Growth NRG Bacteria identification in bronchial specimen by aerobe culture [id number] NRG FTX;REPORTABLE PLUS NORMAL MARCELLO NRG FREE TEXT ENTRY 2 PLUS NORMAL MARCELLO NRG Bacterial susceptibility panel - 09/12/16 10:30 Gentamicin susceptibility test by minimum inhibitory concentration < = NRG Tobramycin susceptibility test by minimum inhibitory concentration < = NRG Piperacillin/tazobactam susceptibility test by minimum inhibitory concentration <= NRG Ciprofloxacin susceptibility test by minimum inhibitory concentration <= NRG Meropenem susceptibility test by minimum inhibitory concentration < = NRG Cefepime susceptibility test by minimum inhibitory concentration <= NRG Complete urinalysis with reflex to culture - 10/29/16 20:05 Urine color determination YELLOW NRG Urine clarity determination CLEAR NRG Urine pH measurement by test strip 6 5-9 Specific gravity of urine by test strip 1.010 1.016- 1.022 Urine protein assay by test strip, semi-quantitative NEGATIVE NEGATIVE Urine glucose detection by automated test strip 4+ NEGATIVE Erythrocytes detection in urine sediment by light microscopy NEGATIVE NEGATIVE Urine ketones detection by automated test strip NEGATIVE NEGATIVE Urine nitrite detection by test strip NEGATIVE NEGATIVE Urine total bilirubin detection by test strip NEGATIVE NEGATIVE Urine urobilinogen measurement by automated test strip (mass/volume) NORMAL NORMAL Urine leukocyte esterase detection by dipstick NEGATIVE NEGATIVE Automated urine sediment erythrocyte count by microscopy (number/high power field) NONE NRG Automated urine sediment leukocyte count by microscopy (number/high power field ) RARE NRG Bacteria detection in urine sediment by light microscopy NEGATIVE NRG Squamous epithelial cells detection in urine sediment by light microscopy 0-2 NRG Crystals detection in urine sediment by light microscopy NONE NRG Casts detection in urine sediment by light microscopy NONE NRG Mucus detection in urine sediment by light microscopy NEGATIVE NRG Complete urinalysis with reflex to culture NO NRG Complete blood count (CBC) with automated white blood cell (WBC) differential - 10/29/16 20:58 Blood leukocytes automated count (number/volume) 9.4 10*3/uL 4.3-11.0 Blood erythrocytes automated count (number/volume) 3.47 10*6/uL 4.35-5.85 Venous blood hemoglobin measurement (mass/volume) 10.2 g/dL 11.5-16.0 Blood hematocrit (volume fraction) 34 % 35-52 Automated erythrocyte mean corpuscular volume 97 [foz_us] 80-99 Automated erythrocyte mean corpuscular hemoglobin (mass per erythrocyte) 29 pg 25-34 Automated erythrocyte mean corpuscular hemoglobin concentration measurement ( mass/volume) 30 g/dL 32-36 Automated erythrocyte distribution width ratio 14.6 % 10.0-14.5 Automated blood platelet count (count/volume) 353 10*3/uL 130-400 Automated blood platelet mean volume measurement 10.5 [foz_us] 7.4-10.4 Automated blood neutrophils/100 leukocytes 92 % 42-75 Automated blood lymphocytes/100 leukocytes 2 % 12-44 Blood monocytes/100 leukocytes 5 % 0-12 Automated blood eosinophils/100 leukocytes 0 % 0-10 Automated blood basophils/100 leukocytes 0 % 0-10 Blood neutrophils automated count (number/volume) 8.7 10*3 1.8-7.8 Blood lymphocytes automated count (number/volume) 0.2 10*3 1.0-4.0 Blood monocytes automated count (number/volume) 0.5 10*3 0.0-1.0 Automated eosinophil count 0.0 10*3/uL 0.0-0.3 Automated blood basophil count (count/volume) 0.0 10*3/uL 0.0-0.1 Blood manual differential performed detection - 10/29/16 20:58 Blood monocytes/100 leukocytes 0 % NR Manual blood segmented neutrophils/100 leukocytes 95 % NRG Blood band neutrophils/100 leukocytes 1 % NRG Manual blood lymphocytes/100 leukocytes 4 % NRG Manual eosinophils/100 leukocytes in nose 0 % NR Manual blood basophils/100 leukocytes 0 % NRG Blood hypochromia detection by light microscopy SLIGHT [facility] Comprehensive metabolic panel - 10/29/16 20:58 Serum or plasma sodium measurement (moles/volume) 136 mmol/L 135-145 Serum or plasma potassium measurement (moles/volume) 4.8 mmol/L 3.6-5.0 Serum or plasma chloride measurement (moles/volume) 97 mmol/L 98-107 Carbon dioxide 30 mmol/L 21-32 Serum or plasma anion gap determination (moles/volume) 9 mmol/L 5-14 Serum or plasma urea nitrogen measurement (mass/volume) 20 mg/dL 7-18 Serum or plasma creatinine measurement (mass/volume) 0.91 mg/dL 0.60-1.30 Serum or plasma urea nitrogen/creatinine mass ratio 22 NRG Serum or plasma creatinine measurement with calculation of estimated glomerular filtration rate > NRG Serum or plasma glucose measurement (mass/volume) 261 mg/dL 70-105 Serum or plasma calcium measurement (mass/volume) 8.7 mg/dL 8.5-10.1 Serum or plasma total bilirubin measurement (mass/volume) 0.4 mg/dL 0.1-1.0 Serum or plasma alkaline phosphatase measurement (enzymatic activity/volume) 78 U/L 40-136 Serum or plasma aspartate aminotransferase measurement (enzymatic activity/ volume) 16 U/L 5-34 Serum or plasma alanine aminotransferase measurement (enzymatic activity/volume ) 21 U/L 0-55 Serum or plasma protein measurement (mass/volume) 6.6 g/dL 6.4-8.2 Serum or plasma albumin measurement (mass/volume) 3.6 g/dL 3.2-4.5 Magnesium - 10/29/16 20:58 Magnesium 2.2 mg/dL 1.8-2.4 Complete blood count (CBC) with automated white blood cell (WBC) differential - 01/27/17 15:16 Blood leukocytes automated count (number/volume) 6.2 10*3/uL 4.3-11.0 Blood erythrocytes automated count (number/volume) 3.43 10*6/uL 4.35-5.85 Venous blood hemoglobin measurement (mass/volume) 10.9 g/dL 11.5-16.0 Blood hematocrit (volume fraction) 38 % 35-52 Automated erythrocyte mean corpuscular volume 109 [foz_us] 80-99 Automated erythrocyte mean corpuscular hemoglobin (mass per erythrocyte) 32 pg 25-34 Automated erythrocyte mean corpuscular hemoglobin concentration measurement ( mass/volume) 29 g/dL 32-36 Automated erythrocyte distribution width ratio 14.2 % 10.0-14.5 Automated blood platelet count (count/volume) 267 10*3/uL 130-400 Automated blood platelet mean volume measurement 10.7 [foz_us] 7.4-10.4 Automated blood neutrophils/100 leukocytes 80 % 42-75 Automated blood lymphocytes/100 leukocytes 7 % 12-44 Blood monocytes/100 leukocytes 11 % 0-12 Automated blood eosinophils/100 leukocytes 2 % 0-10 Automated blood basophils/100 leukocytes 0 % 0-10 Blood neutrophils automated count (number/volume) 4.9 10*3 1.8-7.8 Blood lymphocytes automated count (number/volume) 0.5 10*3 1.0-4.0 Blood monocytes automated count (number/volume) 0.7 10*3 0.0-1.0 Automated eosinophil count 0.1 10*3/uL 0.0-0.3 Automated blood basophil count (count/volume) 0.0 10*3/uL 0.0-0.1 Comprehensive metabolic panel - 01/27/17 15:16 Serum or plasma sodium measurement (moles/volume) 139 mmol/L 135-145 Serum or plasma potassium measurement (moles/volume) 4.5 mmol/L 3.6-5.0 Serum or plasma chloride measurement (moles/volume) 89 mmol/L 98-107 Carbon dioxide 41 mmol/L 21-32 Serum or plasma anion gap determination (moles/volume) 9 mmol/L 5-14 Serum or plasma urea nitrogen measurement (mass/volume) 13 mg/dL 7-18 Serum or plasma creatinine measurement (mass/volume) 0.81 mg/dL 0.60-1.30 Serum or plasma urea nitrogen/creatinine mass ratio 16 NRG Serum or plasma creatinine measurement with calculation of estimated glomerular filtration rate > NRG Serum or plasma glucose measurement (mass/volume) 226 mg/dL 70-105 Serum or plasma calcium measurement (mass/volume) 9.4 mg/dL 8.5-10.1 Serum or plasma total bilirubin measurement (mass/volume) 0.3 mg/dL 0.1-1.0 Serum or plasma alkaline phosphatase measurement (enzymatic activity/volume) 102 U/L 40-136 Serum or plasma aspartate aminotransferase measurement (enzymatic activity/ volume) 20 U/L 5-34 Serum or plasma alanine aminotransferase measurement (enzymatic activity/volume ) 24 U/L 0-55 Serum or plasma protein measurement (mass/volume) 6.9 g/dL 6.4-8.2 Serum or plasma albumin measurement (mass/volume) 3.8 g/dL 3.2-4.5 Serum or plasma troponin i.cardiac measurement (mass/volume) - 01/27/17 15:16 Serum or plasma troponin i.cardiac measurement (mass/volume) < ng/ mL <0.30 Serum or plasma C reactive protein measurement (mass/volume) - 01/27/17 15:16 Serum or plasma C reactive protein measurement (mass/volume) 0.10 mg /dL 0.00-0.50 Blood manual differential performed detection - 01/27/17 15:16 Blood monocytes/100 leukocytes 7 % NRG Manual blood segmented neutrophils/100 leukocytes 83 % NRG Blood band neutrophils/100 leukocytes 1 % NRG Manual blood lymphocytes/100 leukocytes 8 % NRG Manual eosinophils/100 leukocytes in nose 1 % NRG Blood ovalocytes detection by light microscopy SLIGHT NRG Blood hypochromia detection by light microscopy MODERATE NRG Blood stomatocytes detection by light microscopy SLIGHT NRG Blood lactic acid measurement (moles/volume) - 01/27/17 16:00 Blood lactic acid measurement (moles/volume) 1.34 mmol/L 0.50-2.00 Bacterial blood culture - 01/27/17 16:00 QUANTITY OF GROWTH . NRG Bacterial blood culture SEE COMMEN NR Bacterial blood culture - 01/27/17 16:21 Bacterial blood culture NG NRG Sputum Gram stain - 01/27/17 17:00 GRAM STAIN SPUTUM YEAST CELLS OBSERVED NR Bacterial sputum culture - 01/27/17 17:00 FREE TEXT EXTERNAL SENSITIVITY REPORTED 01/29 07:30 NRG QUANTITY OF GROWTH Scant Growth NR FREE TEXT ENTRY 2 PLUS NORMAL MARCELLO NR Bacterial sputum culture [id number] NR Bacterial susceptibility panel - 01/27/17 17:00 Gentamicin susceptibility test by minimum inhibitory concentration < = NRG Tobramycin susceptibility test by minimum inhibitory concentration < = NRG Piperacillin/tazobactam susceptibility test by minimum inhibitory concentration <= NRG Ciprofloxacin susceptibility test by minimum inhibitory concentration 0.5 NRG Meropenem susceptibility test by minimum inhibitory concentration < = NRG Cefepime susceptibility test by minimum inhibitory concentration <= NRG Complete blood count (CBC) with automated white blood cell (WBC) differential - 01/28/17 06:12 Blood leukocytes automated count (number/volume) 6.7 10*3/uL 4.3-11.0 Blood erythrocytes automated count (number/volume) 3.11 10*6/uL 4.35-5.85 Venous blood hemoglobin measurement (mass/volume) 9.6 g/dL 11.5-16.0 Blood hematocrit (volume fraction) 33 % 35-52 Automated erythrocyte mean corpuscular volume 107 [foz_us] 80-99 Automated erythrocyte mean corpuscular hemoglobin (mass per erythrocyte) 31 pg 25-34 Automated erythrocyte mean corpuscular hemoglobin concentration measurement ( mass/volume) 29 g/dL 32-36 Automated erythrocyte distribution width ratio 14.2 % 10.0-14.5 Automated blood platelet count (count/volume) 253 10*3/uL 130-400 Automated blood platelet mean volume measurement 10.5 [foz_us] 7.4-10.4 Automated blood neutrophils/100 leukocytes 95 % 42-75 Automated blood lymphocytes/100 leukocytes 3 % 12-44 Blood monocytes/100 leukocytes 2 % 0-12 Automated blood eosinophils/100 leukocytes 0 % 0-10 Automated blood basophils/100 leukocytes 0 % 0-10 Blood neutrophils automated count (number/volume) 6.3 10*3 1.8-7.8 Blood lymphocytes automated count (number/volume) 0.2 10*3 1.0-4.0 Blood monocytes automated count (number/volume) 0.1 10*3 0.0-1.0 Automated eosinophil count 0.0 10*3/uL 0.0-0.3 Automated blood basophil count (count/volume) 0.0 10*3/uL 0.0-0.1 Comprehensive metabolic panel - 01/28/17 06:12 Serum or plasma sodium measurement (moles/volume) 140 mmol/L 135-145 Serum or plasma potassium measurement (moles/volume) 4.3 mmol/L 3.6-5.0 Serum or plasma chloride measurement (moles/volume) 91 mmol/L 98-107 Carbon dioxide 44 mmol/L 21-32 Serum or plasma anion gap determination (moles/volume) 5 mmol/L 5-14 Serum or plasma urea nitrogen measurement (mass/volume) 13 mg/dL 7-18 Serum or plasma creatinine measurement (mass/volume) 0.75 mg/dL 0.60-1.30 Serum or plasma urea nitrogen/creatinine mass ratio 17 NRG Serum or plasma creatinine measurement with calculation of estimated glomerular filtration rate > NRG Serum or plasma glucose measurement (mass/volume) 206 mg/dL 70-105 Serum or plasma calcium measurement (mass/volume) 8.9 mg/dL 8.5-10.1 Serum or plasma total bilirubin measurement (mass/volume) 0.3 mg/dL 0.1-1.0 Serum or plasma alkaline phosphatase measurement (enzymatic activity/volume) 84 U/L 40-136 Serum or plasma aspartate aminotransferase measurement (enzymatic activity/ volume) 18 U/L 5-34 Serum or plasma alanine aminotransferase measurement (enzymatic activity/volume ) 21 U/L 0-55 Serum or plasma protein measurement (mass/volume) 6.3 g/dL 6.4-8.2 Serum or plasma albumin measurement (mass/volume) 3.5 g/dL 3.2-4.5 Complete blood count (CBC) with automated white blood cell (WBC) differential - 01/29/17 06:06 Blood leukocytes automated count (number/volume) 7.5 10*3/uL 4.3-11.0 Blood erythrocytes automated count (number/volume) 3.07 10*6/uL 4.35-5.85 Venous blood hemoglobin measurement (mass/volume) 9.7 g/dL 11.5-16.0 Blood hematocrit (volume fraction) 32 % 35-52 Automated erythrocyte mean corpuscular volume 105 [foz_us] 80-99 Automated erythrocyte mean corpuscular hemoglobin (mass per erythrocyte) 32 pg 25-34 Automated erythrocyte mean corpuscular hemoglobin concentration measurement ( mass/volume) 30 g/dL 32-36 Automated erythrocyte distribution width ratio 14.3 % 10.0-14.5 Automated blood platelet count (count/volume) 239 10*3/uL 130-400 Automated blood platelet mean volume measurement 10.6 [foz_us] 7.4-10.4 Automated blood neutrophils/100 leukocytes 93 % 42-75 Automated blood lymphocytes/100 leukocytes 3 % 12-44 Blood monocytes/100 leukocytes 4 % 0-12 Automated blood eosinophils/100 leukocytes 0 % 0-10 Automated blood basophils/100 leukocytes 0 % 0-10 Blood neutrophils automated count (number/volume) 6.9 10*3 1.8-7.8 Blood lymphocytes automated count (number/volume) 0.2 10*3 1.0-4.0 Blood monocytes automated count (number/volume) 0.3 10*3 0.0-1.0 Automated eosinophil count 0.0 10*3/uL 0.0-0.3 Automated blood basophil count (count/volume) 0.0 10*3/uL 0.0-0.1 Comprehensive metabolic panel - 01/29/17 06:06 Serum or plasma sodium measurement (moles/volume) 134 mmol/L 135-145 Serum or plasma potassium measurement (moles/volume) 4.6 mmol/L 3.6-5.0 Serum or plasma chloride measurement (moles/volume) 95 mmol/L 98-107 Carbon dioxide 31 mmol/L 21-32 Serum or plasma anion gap determination (moles/volume) 8 mmol/L 5-14 Serum or plasma urea nitrogen measurement (mass/volume) 14 mg/dL 7-18 Serum or plasma creatinine measurement (mass/volume) 0.74 mg/dL 0.60-1.30 Serum or plasma urea nitrogen/creatinine mass ratio 19 NRG Serum or plasma creatinine measurement with calculation of estimated glomerular filtration rate > NRG Serum or plasma glucose measurement (mass/volume) 201 mg/dL 70-105 Serum or plasma calcium measurement (mass/volume) 8.8 mg/dL 8.5-10.1 Serum or plasma total bilirubin measurement (mass/volume) 0.3 mg/dL 0.1-1.0 Serum or plasma alkaline phosphatase measurement (enzymatic activity/volume) 83 U/L 40-136 Serum or plasma aspartate aminotransferase measurement (enzymatic activity/ volume) 20 U/L 5-34 Serum or plasma alanine aminotransferase measurement (enzymatic activity/volume ) 24 U/L 0-55 Serum or plasma protein measurement (mass/volume) 6.1 g/dL 6.4-8.2 Serum or plasma albumin measurement (mass/volume) 3.4 g/dL 3.2-4.5 Complete blood count (CBC) with automated white blood cell (WBC) differential - 01/30/17 06:06 Blood leukocytes automated count (number/volume) 5.3 10*3/uL 4.3-11.0 Blood erythrocytes automated count (number/volume) 3.33 10*6/uL 4.35-5.85 Venous blood hemoglobin measurement (mass/volume) 10.4 g/dL 11.5-16.0 Blood hematocrit (volume fraction) 35 % 35-52 Automated erythrocyte mean corpuscular volume 105 [foz_us] 80-99 Automated erythrocyte mean corpuscular hemoglobin (mass per erythrocyte) 31 pg 25-34 Automated erythrocyte mean corpuscular hemoglobin concentration measurement ( mass/volume) 30 g/dL 32-36 Automated erythrocyte distribution width ratio 14.2 % 10.0-14.5 Automated blood platelet count (count/volume) 254 10*3/uL 130-400 Automated blood platelet mean volume measurement 10.8 [foz_us] 7.4-10.4 Automated blood neutrophils/100 leukocytes 94 % 42-75 Automated blood lymphocytes/100 leukocytes 3 % 12-44 Blood monocytes/100 leukocytes 3 % 0-12 Automated blood eosinophils/100 leukocytes 0 % 0-10 Automated blood basophils/100 leukocytes 0 % 0-10 Blood neutrophils automated count (number/volume) 5.0 10*3 1.8-7.8 Blood lymphocytes automated count (number/volume) 0.1 10*3 1.0-4.0 Blood monocytes automated count (number/volume) 0.2 10*3 0.0-1.0 Automated eosinophil count 0.0 10*3/uL 0.0-0.3 Automated blood basophil count (count/volume) 0.0 10*3/uL 0.0-0.1 Whole blood basic metabolic panel - 01/30/17 06:06 Serum or plasma sodium measurement (moles/volume) 138 mmol/L 135-145 Serum or plasma potassium measurement (moles/volume) 4.3 mmol/L 3.6-5.0 Serum or plasma chloride measurement (moles/volume) 94 mmol/L 98-107 Carbon dioxide 37 mmol/L 21-32 Serum or plasma anion gap determination (moles/volume) 7 mmol/L 5-14 Serum or plasma urea nitrogen measurement (mass/volume) 16 mg/dL 7-18 Serum or plasma creatinine measurement (mass/volume) 0.79 mg/dL 0.60-1.30 Serum or plasma urea nitrogen/creatinine mass ratio 20 NRG Serum or plasma creatinine measurement with calculation of estimated glomerular filtration rate > NRG Serum or plasma glucose measurement (mass/volume) 199 mg/dL 70-105 Serum or plasma calcium measurement (mass/volume) 8.7 mg/dL 8.5-10.1 Complete blood count (CBC) with automated white blood cell (WBC) differential - 01/31/17 06:59 Blood leukocytes automated count (number/volume) 7.6 10*3/uL 4.3-11.0 Blood erythrocytes automated count (number/volume) 3.31 10*6/uL 4.35-5.85 Venous blood hemoglobin measurement (mass/volume) 10.3 g/dL 11.5-16.0 Blood hematocrit (volume fraction) 34 % 35-52 Automated erythrocyte mean corpuscular volume 104 [foz_us] 80-99 Automated erythrocyte mean corpuscular hemoglobin (mass per erythrocyte) 31 pg 25-34 Automated erythrocyte mean corpuscular hemoglobin concentration measurement ( mass/volume) 30 g/dL 32-36 Automated erythrocyte distribution width ratio 14.3 % 10.0-14.5 Automated blood platelet count (count/volume) 263 10*3/uL 130-400 Automated blood platelet mean volume measurement 10.6 [foz_us] 7.4-10.4 Automated blood neutrophils/100 leukocytes 92 % 42-75 Automated blood lymphocytes/100 leukocytes 3 % 12-44 Blood monocytes/100 leukocytes 5 % 0-12 Automated blood eosinophils/100 leukocytes 0 % 0-10 Automated blood basophils/100 leukocytes 0 % 0-10 Blood neutrophils automated count (number/volume) 7.0 10*3 1.8-7.8 Blood lymphocytes automated count (number/volume) 0.2 10*3 1.0-4.0 Blood monocytes automated count (number/volume) 0.4 10*3 0.0-1.0 Automated eosinophil count 0.0 10*3/uL 0.0-0.3 Automated blood basophil count (count/volume) 0.0 10*3/uL 0.0-0.1 Whole blood basic metabolic panel - 01/31/17 06:59 Serum or plasma sodium measurement (moles/volume) 139 mmol/L 135-145 Serum or plasma potassium measurement (moles/volume) 4.5 mmol/L 3.6-5.0 Serum or plasma chloride measurement (moles/volume) 95 mmol/L 98-107 Carbon dioxide 37 mmol/L 21-32 Serum or plasma anion gap determination (moles/volume) 7 mmol/L 5-14 Serum or plasma urea nitrogen measurement (mass/volume) 15 mg/dL 7-18 Serum or plasma creatinine measurement (mass/volume) 0.77 mg/dL 0.60-1.30 Serum or plasma urea nitrogen/creatinine mass ratio 19 NRG Serum or plasma creatinine measurement with calculation of estimated glomerular filtration rate > NRG Serum or plasma glucose measurement (mass/volume) 260 mg/dL 70-105 Serum or plasma calcium measurement (mass/volume) 8.9 mg/dL 8.5-10.1 Complete blood count (CBC) with automated white blood cell (WBC) differential - 02/18/17 12:52 Blood leukocytes automated count (number/volume) 7.9 10*3/uL 4.3-11.0 Blood erythrocytes automated count (number/volume) 3.67 10*6/uL 4.35-5.85 Venous blood hemoglobin measurement (mass/volume) 11.4 g/dL 11.5-16.0 Blood hematocrit (volume fraction) 38 % 35-52 Automated erythrocyte mean corpuscular volume 104 [foz_us] 80-99 Automated erythrocyte mean corpuscular hemoglobin (mass per erythrocyte) 31 pg 25-34 Automated erythrocyte mean corpuscular hemoglobin concentration measurement ( mass/volume) 30 g/dL 32-36 Automated erythrocyte distribution width ratio 13.7 % 10.0-14.5 Automated blood platelet count (count/volume) 219 10*3/uL 130-400 Automated blood platelet mean volume measurement 10.2 [foz_us] 7.4-10.4 Automated blood neutrophils/100 leukocytes 85 % 42-75 Automated blood lymphocytes/100 leukocytes 5 % 12-44 Blood monocytes/100 leukocytes 8 % 0-12 Automated blood eosinophils/100 leukocytes 2 % 0-10 Automated blood basophils/100 leukocytes 0 % 0-10 Blood neutrophils automated count (number/volume) 6.7 10*3 1.8-7.8 Blood lymphocytes automated count (number/volume) 0.4 10*3 1.0-4.0 Blood monocytes automated count (number/volume) 0.6 10*3 0.0-1.0 Automated eosinophil count 0.2 10*3/uL 0.0-0.3 Automated blood basophil count (count/volume) 0.0 10*3/uL 0.0-0.1 Blood manual differential performed detection - 02/18/17 12:52 Blood monocytes/100 leukocytes 5 % NRG Manual blood segmented neutrophils/100 leukocytes 86 % NRG Blood band neutrophils/100 leukocytes 2 % NRG Manual blood lymphocytes/100 leukocytes 5 % NRG Manual eosinophils/100 leukocytes in nose 2 % NRG Blood macrocytes detection by light microscopy SLIGHT NRG Sputum Gram stain - 02/18/17 12:54 GRAM STAIN SPUTUM AND MIXED BACTERIAL MARCELLO NRG Bacterial sputum culture - 02/18/17 12:54 FREE TEXT EXTERNAL SENSITIVITY REPORTED 02/20/17 9:05 NRG QUANTITY OF GROWTH Abundant Growth NRG FREE TEXT ENTRY 2 PLUS NORMAL MARCELLO NRG Bacterial sputum culture [id number] NRG Bacterial susceptibility panel - 02/18/17 12:54 Gentamicin susceptibility test by minimum inhibitory concentration < = NRG Tobramycin susceptibility test by minimum inhibitory concentration < = NRG Piperacillin/tazobactam susceptibility test by minimum inhibitory concentration <= NRG Ciprofloxacin susceptibility test by minimum inhibitory concentration 0.5 NRG Meropenem susceptibility test by minimum inhibitory concentration < = NRG Cefepime susceptibility test by minimum inhibitory concentration <= NRG Sputum Gram stain - 03/19/17 16:25 Sputum Gram stain rods NRG Bacterial sputum culture - 03/19/17 16:25 FREE TEXT EXTERNAL SENSITIVITY REPORTED 03/21 08:30 NRG QUANTITY OF GROWTH Moderate Growth NRG FREE TEXT ENTRY 2 PLUS NORMAL MARCELLO NRG Bacterial sputum culture [id number] NRG Bacterial susceptibility panel - 03/19/17 16:25 Gentamicin susceptibility test by minimum inhibitory concentration < = NRG Tobramycin susceptibility test by minimum inhibitory concentration < = NRG Piperacillin/tazobactam susceptibility test by minimum inhibitory concentration S NRG Ciprofloxacin susceptibility test by minimum inhibitory concentration 0.5 NRG Meropenem susceptibility test by minimum inhibitory concentration < = NRG Cefepime susceptibility test by minimum inhibitory concentration 2 NRG Automated blood complete blood count (hemogram) panel - 03/19/17 16:34 Blood leukocytes automated count (number/volume) 6.3 10*3/uL 4.3-11.0 Blood erythrocytes automated count (number/volume) 3.52 10*6/uL 4.35-5.85 Venous blood hemoglobin measurement (mass/volume) 10.7 g/dL 11.5-16.0 Blood hematocrit (volume fraction) 36 % 35-52 Automated erythrocyte mean corpuscular volume 103 [foz_us] 80-99 Automated erythrocyte mean corpuscular hemoglobin (mass per erythrocyte) 30 pg 25-34 Automated erythrocyte mean corpuscular hemoglobin concentration measurement ( mass/volume) 29 g/dL 32-36 Automated erythrocyte distribution width ratio 13.3 % 10.0-14.5 Automated blood platelet count (count/volume) 206 10*3/uL 130-400 Automated blood platelet mean volume measurement 10.0 [foz_us] 7.4-10.4 Whole blood basic metabolic panel - 03/19/17 16:34 Serum or plasma sodium measurement (moles/volume) 137 mmol/L 135-145 Serum or plasma potassium measurement (moles/volume) 4.7 mmol/L 3.6-5.0 Serum or plasma chloride measurement (moles/volume) 88 mmol/L 98-107 Carbon dioxide 39 mmol/L 21-32 Serum or plasma anion gap determination (moles/volume) 10 mmol/L 5-14 Serum or plasma urea nitrogen measurement (mass/volume) 13 mg/dL 7-18 Serum or plasma creatinine measurement (mass/volume) 0.72 mg/dL 0.60-1.30 Serum or plasma urea nitrogen/creatinine mass ratio 18 NRG Serum or plasma creatinine measurement with calculation of estimated glomerular filtration rate > NRG Serum or plasma glucose measurement (mass/volume) 148 mg/dL 70-105 Serum or plasma calcium measurement (mass/volume) 9.6 mg/dL 8.5-10.1 Complete blood count (CBC) with automated white blood cell (WBC) differential - 03/22/17 07:30 Blood leukocytes automated count (number/volume) 6.1 10*3/uL 4.3-11.0 Blood erythrocytes automated count (number/volume) 3.31 10*6/uL 4.35-5.85 Venous blood hemoglobin measurement (mass/volume) 10.1 g/dL 11.5-16.0 Blood hematocrit (volume fraction) 35 % 35-52 Automated erythrocyte mean corpuscular volume 106 [foz_us] 80-99 Automated erythrocyte mean corpuscular hemoglobin (mass per erythrocyte) 31 pg 25-34 Automated erythrocyte mean corpuscular hemoglobin concentration measurement ( mass/volume) 29 g/dL 32-36 Automated erythrocyte distribution width ratio 12.9 % 10.0-14.5 Automated blood platelet count (count/volume) 246 10*3/uL 130-400 Automated blood platelet mean volume measurement 10.6 [foz_us] 7.4-10.4 Automated blood neutrophils/100 leukocytes 77 % 42-75 Automated blood lymphocytes/100 leukocytes 8 % 12-44 Blood monocytes/100 leukocytes 13 % 0-12 Automated blood eosinophils/100 leukocytes 2 % 0-10 Automated blood basophils/100 leukocytes 0 % 0-10 Blood neutrophils automated count (number/volume) 4.7 10*3 1.8-7.8 Blood lymphocytes automated count (number/volume) 0.5 10*3 1.0-4.0 Blood monocytes automated count (number/volume) 0.8 10*3 0.0-1.0 Automated eosinophil count 0.1 10*3/uL 0.0-0.3 Automated blood basophil count (count/volume) 0.0 10*3/uL 0.0-0.1 Blood lactic acid measurement (moles/volume) - 03/22/17 07:30 Blood lactic acid measurement (moles/volume) 0.61 mmol/L 0.50-2.00 Comprehensive metabolic panel - 03/22/17 07:30 Serum or plasma sodium measurement (moles/volume) 140 mmol/L 135-145 Serum or plasma potassium measurement (moles/volume) 4.8 mmol/L 3.6-5.0 Serum or plasma chloride measurement (moles/volume) 87 mmol/L 98-107 Serum or plasma anion gap determination (moles/volume) 8 mmol/L 5-14 Serum or plasma urea nitrogen measurement (mass/volume) 12 mg/dL 7-18 Serum or plasma creatinine measurement (mass/volume) 0.70 mg/dL 0.60-1.30 Serum or plasma urea nitrogen/creatinine mass ratio 17 NRG Serum or plasma creatinine measurement with calculation of estimated glomerular filtration rate > NRG Serum or plasma glucose measurement (mass/volume) 168 mg/dL 70-105 Serum or plasma calcium measurement (mass/volume) 9.9 mg/dL 8.5-10.1 Serum or plasma total bilirubin measurement (mass/volume) 0.3 mg/dL 0.1-1.0 Serum or plasma alkaline phosphatase measurement (enzymatic activity/volume) 77 U/L 40-136 Serum or plasma aspartate aminotransferase measurement (enzymatic activity/ volume) 26 U/L 5-34 Serum or plasma alanine aminotransferase measurement (enzymatic activity/volume ) 26 U/L 0-55 Serum or plasma protein measurement (mass/volume) 6.8 g/dL 6.4-8.2 Serum or plasma albumin measurement (mass/volume) 3.7 g/dL 3.2-4.5 Encounters ACCT No. Visit Date/Time Discharge Status Pt. Type Provider Facility Loc./Unit Complaint [id number] 03/06/2017 12:29:00 03/06/2017 23:59:59 CLS Preadmit KRISTINE LOWERY [facility] CARD LUNG CANCER [id number] 03/06/2017 10:43:00 03/06/2017 23:59:59 CLS Outpatient KRISTINE LOWERY [facility] ONC [id number] 02/21/2017 09:37:00 02/21/2017 23:59:59 CLS Outpatient KRISTINE LOWERY [facility] RAD COMPRESSION FX OF C/SP W/ DELAYED HEALING M48.5ZXG [id number] 02/18/2017 12:31:00 02/18/2017 23:59:59 CLS Outpatient WEST MCCAULEY DO [facility] RAD COUGH,COPD, CONGESTION [id number] 01/27/2017 17:55:00 01/31/2017 12:30:00 DIS Inpatient WEST MCCAULEY DO Via [facility] 4TH COPD ACUTE EXACERBATION [id number] 01/22/2017 10:44:00 01/22/2017 23:59:59 CLS Outpatient KRISTINE LOWERY [facility] CARD C34.31 [id number] 12/26/2016 09:57:00 12/26/2016 00:01:00 DIS Outpatient KRISTINE LOWERY [facility] ONC [id number] 12/13/2016 12:00:00 12/13/2016 23:59:59 CLS Outpatient KRISTINE LOWERY [facility] HH DECREASED GFR, LOW MAGNESIUM [id number] 10/29/2016 18:58:00 10/29/2016 21:29:00 DIS Emergency NICOLE CRAVEN, DIYA Guerrero [facility] ER FALL/L SHOULDER PAIN [id number] 10/10/2016 16:25:00 10/10/2016 23:59:59 CLS Outpatient ALTAGRACIA WALLACE DO [facility] RT LUNG CANCER C34.90 [id number] 10/02/2016 08:25:00 10/02/2016 23:59:59 CLS Outpatient SEBASTIÁNKRISTINE Destiney [facility] RAD LUNG CANCER, BACK PAIN [id number] 09/25/2016 09:58:00 09/25/2016 23:59:59 CLS Outpatient NICK CASTANEDA APRN [facility] LAB J43.8 C34.90 [id number] 09/25/2016 09:55:00 09/25/2016 23:59:59 CLS Outpatient SEBASTIÁN KRISTINE Cabello [facility] RAD LUNG NODULE [id number] 09/18/2016 09:24:00 09/18/2016 23:59:59 CLS Outpatient SEBASTIÁN KRISTINE Cabello [facility] RAD LUNG NODULE R91.1 [id number] 09/12/2016 06:56:00 09/12/2016 11:35:00 DIS Outpatient ALTAGRACIA WALLACE DO [facility] ENDO COPD, EXACERBATION RIGHT CHEST MASS [id number] 09/10/2016 05:49:00 09/10/2016 15:21:00 DIS Outpatient ALTAGRACIA WALLACE DO [facility] PREOP EBUS [id number] 09/04/2016 17:47:00 09/06/2016 14:09:00 DIS Inpatient WEST MCCAULEY DO [facility] 4TH COPD EXACERBATION, R CHEST MASS,CHEST PAIN [id number] 08/02/2016 12:54:00 08/02/2016 23:59:59 CLS Outpatient WEST MCCAULEY DO [facility] RAD COPD COUGH [id number] 07/03/2016 07:15:00 07/03/2016 16:40:00 DIS Outpatient LEONA COLES [facility] CATH PAD,CAD,CAROTID ARTERY DISEASE [id number] 07/02/2016 12:38:00 07/02/2016 23:59:59 CLS Outpatient WEST MCCAULEY DO [facility] RAD COUGH,RT SIDE OF CHEST,COPD [id number] 04/18/2016 14:15:00 04/19/2016 16:20:00 DIS Inpatient WEST MCCAULEY DO [facility] 4TH ACUTE COPD EXACERBATION/CHEST PAIN [id number] 03/26/2016 10:20:00 03/26/2016 23:59:59 CLS Outpatient JENNY CRAVEN FACC, ALI FACP CCDS [facility] RAD PAIN IN LT LEG [id number] 03/20/2016 08:44:00 03/21/2016 10:00:00 DIS Outpatient JENNY CRAVEN FACC, ALI FACP CCDS [facility] CATH PVD,CAD [id number] 02/22/2016 08:37:00 02/22/2016 23:59:59 CLS Outpatient JENNY CRAVEN FACC, ALI FACP CCDS [facility] RAD CAD,COPD,HLP, HTN [id number] 02/21/2016 13:13:00 02/21/2016 23:59:59 CLS Outpatient JENNY CRAVEN FACC, ALI FACP CCDS [facility] RAD CAD,COPD,HLD, HTN [id number] 12/17/2015 12:31:00 12/17/2015 23:59:59 CLS Outpatient NALINI JASMINE APRN [facility] QUICK [id number] 07/12/2015 06:56:00 07/13/2015 09:52:00 DIS Outpatient JENNY CRAVEN FACC, ALI FACP CCDS [facility] CATH SOA,ANGINA, CHEST PAIN,HTN,CAD [id number] 06/27/2015 13:54:00 06/27/2015 23:59:59 CLS Outpatient WEST MCCAULEY DO [facility] RAD COPD,COUGH,CONGESTION ,BRONCHITIS [id number] 03/14/2015 14:30:00 03/14/2015 23:59:59 CLS Outpatient WEST MCCAULEY DO [facility] RAD COUGHING,WHEEZING, COPD ON OX [id number] 01/03/2015 09:37:00 01/03/2015 23:59:59 CLS Outpatient LEONA COLES [facility] CARD CAD [id number] 10/19/2014 11:27:00 10/19/2014 13:13:00 DIS Emergency ZHEN BECKER DOCK CLERK [facility] ER FALL/L KNEE PAIN [id number] 07/20/2014 15:00:00 07/20/2014 23:59:59 CLS Preadmit CHASTITYLEONA HENNING [employer] ENGINEERING ILLUSTRATOR [facility] PUL COPD SHORTNESS OF AIR [id number] 06/17/2014 13:00:00 07/19/2014 00:01:00 DIS Outpatient SANKET LEONA [employer] ENGINEERING ILLUSTRATOR [facility] PUL COPD SHORTNESS OF AIR [id number] 03/30/2014 13:00:00 03/31/2014 00:01:00 DIS Outpatient SANKET LEONA L ENGINEERING ILLUSTRATOR [facility] COPD SHORTNESS OF AIR [id number] 11/02/2013 11:36:00 11/09/2013 12:22:00 DIS Outpatient JENNY CRAVEN FACC, ALI BLAINE CCDS [facility] CR STABLE ANGINA; CABG [id number] 10/19/2013 11:49:00 11/03/2013 00:01:00 DIS Outpatient JENNY CRAVEN FACC, ALI FACBk CCDS [facility] CR CABG 02/18; STENT [id number] 08/03/2013 15:23:00 08/03/2013 23:59:59 CLS Outpatient WEST MCCAULEY DO [facility] RAD COPD CONGESTION COUGH SOB [id number] 06/12/2013 09:36:00 06/12/2013 23:59:59 CLS Outpatient WEST MCCAULEY DO [facility] RAD PAIN IN RUQ ABD [id number] 06/10/2013 08:53:00 06/10/2013 23:59:59 CLS Outpatient WEST MCCAULEY DO [facility] RAD RUQ PAIN,COPD, BRONCHITIS [id number] 05/21/2013 10:21:00 05/21/2013 23:59:59 CLS Outpatient WEST MCCAULEY DO [facility] RAD COPD [id number] 05/06/2013 14:54:00 05/06/2013 23:59:59 CLS Outpatient GELLENDER WEST QUINTANILLA [facility] LAB ADAM,,MIKEY [id number] 04/14/2013 14:13:00 04/22/2013 13:00:00 DIS Inpatient PARISA WEST QUINTANILLA [facility] SURGICAL SWB,SOB,COPD, RECENT OPEN HEART SURG [id number] 04/07/2013 14:40:00 04/14/2013 14:13:00 DIS Inpatient CHANDANANILSMONTEZWEST [facility] SURGICAL SOB,COPD,RECENT OPEN HEART SURG [id number] 04/06/2013 13:32:00 04/06/2013 23:59:59 CLS Outpatient SHIELAMONTEZWEST [facility] RAD SOB,COPD,CONJESTION [id number] 02/24/2013 08:39:00 02/24/2013 16:45:00 DIS Outpatient JENNY CRAVEN FACC, NORMA VALLADARES CCDS [facility] CATH CP,HTN [id number] 02/16/2013 11:45:00 02/16/2013 23:59:59 CLS Outpatient PARISA QUINTANILLA WEST Dominguez [facility] RAD CHEST PAIN, [id number] 09/24/2012 13:56:00 09/24/2012 23:59:59 CLS Outpatient PARISA QUINTANILLA WEST Alberto [facility] RT COPD [id number] 03/22/2017 07:53:00 ACT Inpatient WEST MCCAULEY DO [facility] 4TH ACUTE EXACERBATION OF COPD [id number] 03/19/2017 15:06:00 ACT Outpatient WEST MCCAULEY DO [facility] RAD J18.9 [id number] 11/04/2013 11:00:00 Document Registration
--- NOTE | 2017-03-22 08:15 | Diagnostic Imaging Report ---
INDICATION: Dyspnea and cough. 0800 hours. FINDINGS: Since 03/19/2017, bilateral air trapping persists with prominent interstitial markings throughout the lungs. There is no evidence of pneumothorax or significant pleural fluid. Overall, no significant interval change is identified. There is chronic appearing fracture deformity in the proximal left humerus. IMPRESSION: COPD without evidence of acute abnormality or adverse change. Dictated by: Dictated on workstation # [id number]
--- NOTE | 2017-03-22 08:34 | History & Physicial ---
History of Present Illness History of Present Illness Reason for visit/HPI short of breath for the last 48 hours and getting worse. Patient had trouble walking due to shortness of breath. Patient brought out to the emergency room by ambulance. Patient has history of lung cancer and CAD. Patient had lung surgery previously. Patient has COPD with acute exacerbation and admitted Date of Admission Mar 22, 2017 at 07:53 Time Seen by Provider: 08:30 I consulted on this patient on 03/22/17 08:30 Attending Physician Sanju Mccauley DO Admitting Physician Sanju Mccauley DO Consult Allergies and Home Medications Allergies Coded Allergies: Penicillins (Verified Allergy, Severe, ANAPHYLAXIS, 09/04/16) hydrochlorothiazide (Verified Allergy, Intermediate, RASH, 01/29/17) penicillin G (Verified Allergy, Unknown, 09/04/16) Home Medications Acetaminophen with Codeine 1 Each Tablet, 1 TAB PO HS, (Reported) Albuterol Sulfate 2.5 Mg/3 Ml Vial.neb, 2.5 MG NEB 5XD PRN for SHORTNESS OF BREATH, (Reported) Atorvastatin Calcium 40 Mg Tablet, 40 MG PO HS, (Reported) Budesonide/Formoterol Fumarate 10.2 Gm Hfa.aer.ad, 2 PUFF IH BID, (Reported) Cetirizine HCl 10 Mg Tablet, 10 MG PO HS, (Reported) Furosemide 20 Mg Tablet, 20 MG PO 1300, (Reported) LAST FILLED #90 09-20-16 Hydromorphone HCl 2 Mg Tablet, 2 MG PO Q4H PRN for PAIN-SEVERE, (Reported) Levofloxacin 500 Mg Tablet, 500 MG PO DAILY for 5 Days Prescribed by: KAYLEY WATSON on 01/31/17 1131 Levothyroxine Sodium 50 Mcg Tablet, 50 MCG PO HS, (Reported) Lisinopril 10 Mg Tablet, 10 MG PO DAILY, (Reported) Metoprolol Tartrate 50 Mg Tablet, 50 MG PO BID, (Reported) Multivits,Stress Formula 1 Each Tablet, 1 TAB PO DAILY, (Reported) Nitroglycerin 0.4 Mg Tab.subl, 0.4 MG SL UD PRN for CHEST PAIN, (Reported) Ondansetron HCl 8 Mg Tablet, 8 MG PO Q8H PRN for NAUSEA/VOMITING-1ST LINE, ( Reported) Pantoprazole Sodium 40 Mg Tablet.dr, 40 MG PO DAILY, (Reported) Prednisone 10 Mg Tab, 10 MG PO UD, #20 Prescribed by: KAYLEY WATSON on 01/31/17 1131 Promethazine HCl/Codeine 118 Ml Syrup, 10 ML PO TID PRN for COUGH, (Reported) Tiotropium Nixon 4 Gm Mist.inhal, 2 PUFF IH DAILY, (Reported) Ubidecarenone 200 Mg Capsule, 200 MG PO HS, (Reported) Past Qvnqqbz-Ytunci-Tgperm Hx Patient Social History Marrital Status: Employed/Student: unemployed Former Smoker, Quit: Jan 28, 2013 Type Used: Cigarettes Recent Foreign Travel: No Contact w/other who traveled: No Recent Hopitalizations: Yes Recent Infectious Disease Expo: No Immunizations Up To Date Tetanus Booster (TDap): Less than 5yrs Pediatric: Yes Date of Pneumonia Vaccine: Jan 07, 2016 Date of Influenza Vaccine: Jan 14, 2017 Seasonal Allergies Seasonal Allergies: Yes Surgeries Yes (CARDIAC CATH) CABG, Lobectomy, Vascular Surgery Respiratory Yes COPD Currently Using CPAP: No Currently Using BIPAP: No Cardiovascular Yes (cabbage with stents) Coronary Artery Disease, Hypertension, Peripheral Vascular Neurological Yes (ANXIETY) Reproductive System Hx Reproductive Disorders: Yes (26 YRS. 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 Disorders: Denies Genitourinary No Gastrointestinal Yes ("BUTTERFLY" HERNIA) Musculoskeletal Yes (MAYBE MILD ARTHRITIS) Endocrine History of Endocrine Disorders: Yes HEENT History of HEENT Disorders: Yes HEENT Disorders: Cataract Loss of Vision: Denies Hearing Impairment: Denies Cancer Yes Lung Psychosocial History of Psychiatric Problem: No Integumentary History of Skin or Integumenta: No Blood Transfusions History of Blood Disorders: No Adverse Reaction to a Blood Tr: No Reviewed Nursing Assessment Reviewed/Agree w Nursing PMH: Yes Family Medical History Family Hx: Chest pain 09 SISTER Congestive heart failure G-MA Family history: Cardiovascular disease 03 FATHER (68) 09 SISTER Family history: Hypertension 03 FATHER 09 SISTER G-MA Stroke Constitutional: malaise, weakness EENTM: no symptoms reported Respiratory: dyspnea on exertion, short of breath Cardiovascular: no symptoms reported Gastrointestinal: no symptoms reported : No Physical Exam Vital Signs Vital Sign - Last 12Hours 03/22/17 07:21 Temp 97.5 Pulse 105 Resp 16 B/P (MAP) 168/77 (107) O2 Delivery Room Air Capillary Refill : Less Than 3 Seconds General Appearance: Mild Distress, Thin Eyes: Bilateral Eye Normal Inspection HEENT: Normal ENT Inspection Neck: Full Range of Motion, Normal Inspection Respiratory: Decreased Breath Sounds, Wheezing Cardiovascular: Regular Rate, Rhythm, No Murmur Gastrointestinal: Non Tender, Soft Assessment/Plan Assessment and Plan COPD with acute exacerbation. CAD. Lung cancer. Dyspnea. Problems: SANJU MCCAULEY DO Mar 22, 2017 08:34
[2017-03-22 09:29] LABS: ABG BASE EXCESS 20.7 MMOL/L (-2.5-2.5); ABG OXYGEN SATURATION 39 % (94-100); ABG TCO2 50.5 MMOL/L (21.0-31.0)
[2017-03-22 09:52] LABS: ABG PCO2 95 MMHG (35-45); ABG PH 7.32 (7.37-7.43)
[2017-03-22 09:53] LABS: ABG HCO3 48 MMOL/L (23-27); ABG PO2 26 MMHG (79-93); ALLENS TEST YES-POS; PATIENT TEMP 99.2
[2017-03-22 10:14] VITALS: BP 174/74
[2017-03-22] MEDS: LEVOFLOXACIN 750 MG/D5W 150 ML (PRE-MIX) IV SCH (10:44)
[2017-03-22] MEDS: CATHETER FLUSH 10 ML SYR IV PRN ×2 (10:45→17:35)
[2017-03-22] MEDS ORDERED: NS IV SCH (11:00)
[2017-03-22] MEDS ORDERED: TOBRAMYCIN IV SCH (11:00)
[2017-03-22] MEDS ORDERED: CIPR500T4 PO (11:27)
[2017-03-22] MEDS ORDERED: ALEN70TA47 PO (11:27)
[2017-03-22 11:41] LABS: ABG BASE EXCESS 19.4 MMOL/L (-2.5-2.5); ABG OXYGEN SATURATION 98 % (94-100); ABG PH 7.38 (7.37-7.43); ABG PO2 92 MMHG (79-93); ABG TCO2 48.1 MMOL/L (21.0-31.0)
[2017-03-22] MEDS: RT-BUDESONIDE NEBS 0.5 MG/2ML (PULMICORT) AMP INH SCH ×2 (11:41→20:45)
[2017-03-22 11:44] LABS: ABG PCO2 80 MMHG (35-45)
[2017-03-22 11:45] LABS: ABG HCO3 46 MMOL/L (23-27); ALLENS TEST YES-POS; PATIENT TEMP 99.3
[2017-03-22] MEDS ORDERED: ASPI-983 PO (11:46)
[2017-03-22] MEDS ORDERED: CALC117719 PO (11:46)
[2017-03-22] MEDS ORDERED: ACET-790 PO (11:46)
[2017-03-22] MEDS ORDERED: CALC-697 PO (11:46)
[2017-03-22] MEDS: methylPREDNISolone 40 MG/ML (Solu-MEDROL) VIAL IV SCH ×2 (11:53→17:35)
[2017-03-22 12:00] VITALS: BP 167/77
[2017-03-22] MEDS: ALPRAZolam 0.25 MG (XANAX) TAB PO PRN (13:04)
[2017-03-22] MEDS ORDERED: RT-ALBUTEROL/IPRATROPIUM 3 ML (DUONEB) VIAL IH SCH (14:00)
[2017-03-22 15:45] VITALS: BP 168/85
[2017-03-22 20:17] VITALS: BP 168/82
[2017-03-22] MEDS: RT-LEVALBUTEROL (XOPENEX) 1.25 MG/3 ML NEB NON-FORMULARY INH SCH (20:45)
[2017-03-22] MEDS ORDERED: TROUGH ORDER-PHARMACY XX NR (21:00)
[2017-03-23] VITALS (7 sets, daily range): BP systolic 121–179; BP diastolic 66–111
[2017-03-23] MEDS: methylPREDNISolone 40 MG/ML (Solu-MEDROL) VIAL IV SCH ×5 (00:34→23:32)
[2017-03-23] MEDS: ALPRAZolam 0.25 MG (XANAX) TAB PO PRN (00:45)
[2017-03-23 05:57] LABS: BASOPHILS % (AUTO) 0 % (0-10); EOSINOPHILS % (AUTO) 0 % (0-10); LYMPHOCYTES # (AUTO) 0.2 X 10^3 (1.0-4.0); LYMPHOCYTES % (AUTO) 3 % (12-44); MEAN CORPUSCULAR HEMOGLOBIN 30 PG (25-34); MEAN CORPUSCULAR HGB CONC 29 G/DL (32-36); MEAN CORPUSCULAR VOLUME 101 FL (80-99); MEAN PLATELET VOLUME 10.4 FL (7.4-10.4); MONOCYTES # (AUTO) 0.3 X 10^3 (0.0-1.0); MONOCYTES % (AUTO) 4 % (0-12); NEUTROPHILS % (AUTO) 93 % (42-75); PLATELET COUNT 277 10^3/uL (130-400); RED BLOOD COUNT 3.34 10^6/uL (4.35-5.85); RED CELL DISTRIBUTION WIDTH 13.3 % (10.0-14.5); WHITE BLOOD COUNT 6.5 10^3/uL (4.3-11.0)
--- NOTE | 2017-03-23 06:13 | Pulmonary Consultation ---
History of Present Illness History of Present Illness Date of Consultation 03/23/17 06:11 Date of Admission Allergies and Home Medications Allergies Coded Allergies: Penicillins (Verified Allergy, Severe, ANAPHYLAXIS, 09/04/16) hydrochlorothiazide (Verified Allergy, Intermediate, RASH, 01/29/17) penicillin G (Verified Allergy, Unknown, 09/04/16) Home Medications Acetaminophen with Codeine 1 Each Tablet, 1 TAB PO HS, (Reported) Albuterol Sulfate 2.5 Mg/3 Ml Vial.neb, 2.5 MG NEB 5XD PRN for SHORTNESS OF BREATH, (Reported) Alendronate Sodium 70 Mg Tablet, 70 MG PO Sa, (Reported) Aspirin 81 Mg Tablet.dr, 81 MG PO 1300, (Reported) Atorvastatin Calcium 40 Mg Tablet, 40 MG PO HS, (Reported) Budesonide/Formoterol Fumarate 10.2 Gm Hfa.aer.ad, 2 PUFF IH BID, (Reported) Calcium Carbonate 1,177 Mg Tab.chew, 1,177 MG PO QID PRN for INDIGESTION, ( Reported) Calcium Carbonate/Vitamin D3 1 Each Tablet, 1 TAB PO DAILY, (Reported) Cetirizine HCl 10 Mg Tablet, 10 MG PO HS, (Reported) Ciprofloxacin HCl 500 Mg Tablet, 500 MG PO BID for 7 Days, (Reported) 7 DAY SUPPLY FILLED 03-21-17 Furosemide 20 Mg Tablet, 20 MG PO 1300, (Reported) Hydromorphone HCl 2 Mg Tablet, 2 MG PO Q4H PRN for PAIN-SEVERE, (Reported) Levothyroxine Sodium 50 Mcg Tablet, 50 MCG PO HS, (Reported) Lisinopril 10 Mg Tablet, 10 MG PO DAILY, (Reported) Metoprolol Tartrate 50 Mg Tablet, 50 MG PO BID, (Reported) Multivits,Stress Formula 1 Each Tablet, 1 TAB PO DAILY, (Reported) Nitroglycerin 0.4 Mg Tab.subl, 0.4 MG SL UD PRN for CHEST PAIN, (Reported) Ondansetron HCl 8 Mg Tablet, 8 MG PO Q8H PRN for NAUSEA/VOMITING-1ST LINE, ( Reported) Pantoprazole Sodium 40 Mg Tablet.dr, 40 MG PO DAILY, (Reported) Promethazine HCl/Codeine 118 Ml Syrup, 10 ML PO TID PRN for COUGH, (Reported) Tiotropium [place] 4 Gm Mist.inhal, 2 PUFF IH DAILY, (Reported) Ubidecarenone 200 Mg Capsule, 200 MG PO HS, (Reported) Past Xoujseu-Kqonnx-Llerwl Hx Patient Social History Alcohol Use: Denies Use Recreational Drug Use: No Smoking Status: Former Smoker Type Used: Cigarettes Former Smoker, Quit: Jan 28, 2013 Recent Foreign Travel: No Contact w/Someone Who Travel: No Recent Infectious Disease Expo: No Recent Hopitalizations: Yes Immunizations Up To Date Tetanus Booster (TDap): Less than 5yrs PED Vaccines UTD: Yes Date of Pneumonia Vaccine: Jan 07, 2016 Date of Influenza Vaccine: Jan 06, 2017 Seasonal Allergies Seasonal Allergies: Yes Surgeries History of Surgeries: Yes (CARDIAC CATH) Surgeries: CABG, Lobectomy, Vascular Surgery Respiratory History of Respiratory Disorde: Yes Respiratory Disorders: COPD Currently Using CPAP: No Currently Using BIPAP: No Cardiovascular History of Cardiac Disorders: Yes (cabbage with stents) Cardiac Disorders: Coronary Artery Disease, Hypertension, Peripheral Vascular Neurological History of Neurological Disord: Yes (ANXIETY) Reproductive System Hx Reproductive Disorders: Yes (26 YRS. 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 Disorders: Denies Genitourinary History of Genitourinary Disor: No Gastrointestinal History of Gastrointestinal Di: Yes ("BUTTERFLY" HERNIA) Musculoskeletal History of Musculoskeletal Dis: Yes (MAYBE MILD ARTHRITIS) Endocrine History of Endocrine Disorders: Yes HEENT History of HEENT Disorders: Yes HEENT Disorders: Cataract Loss of Vision: Denies Hearing Impairment: Denies Cancer History of Cancer: Yes Cancer: Lung Psychosocial History of Psychiatric Problem: No Integumentary History of Skin or Integumenta: No Blood Transfusions History of Blood Disorders: No Adverse Reaction to a Blood Tr: No Reviewed Nursing Assessment Reviewed/Agree w Nursing PMH: Yes Family Medical History Family Medial History: Chest pain 09 SISTER Congestive heart failure G-MA Family history: Cardiovascular disease 03 FATHER (68) 09 SISTER Family history: Hypertension 03 FATHER 09 SISTER G-MA Stroke Exam Exam Vital Signs Date Time Temp Pulse Resp B/P (MAP) Pulse Ox O2 Delivery O2 Flow Rate FiO2 03/23/17 04:00 98.1 97 22 158/87 (110) 98 Nasal Cannula 3.00 03/23/17 01:12 94 Nasal Cannula 3.00 03/23/17 01:00 88 03/23/17 00:00 97.1 98 20 168/79 (108) 98 NIV Bilevel 03/22/17 23:59 95 24 97 40.00 03/22/17 20:49 98 NIV Bilevel 40 03/22/17 20:45 94 23 98 40.00 03/22/17 20:17 98.7 104 18 168/82 (110) 97 NIV Bilevel 03/22/17 20:10 NIV Bilevel 03/22/17 19:00 105 03/22/17 18:27 178 21 94 40.00 03/22/17 16:35 173 23 97 40.00 03/22/17 15:45 98.7 152 21 168/85 (112) 98 NIV Bilevel 03/22/17 14:45 164 21 96 40.00 03/22/17 12:00 98.7 118 22 167/77 (107) 94 NIV Bilevel 03/22/17 11:49 96 30 03/22/17 11:41 120 23 7 40.00 03/22/17 10:14 99.2 109 24 174/74 (107) 94 NIV Bilevel 03/22/17 09:22 98 NIV Bilevel 03/22/17 09:03 88 22 99 03/22/17 08:00 112 18 7 60.00 03/22/17 07:21 94 Nasal Cannula 03/22/17 07:21 97.5 105 16 168/77 (107) Room Air I & O 03/23/17 07:00 Intake Total 0 ml Output Total 2400 ml Balance -2400 ml General Appearance: Mild Distress, Thin HEENT: Normal ENT Inspection Neck: Full Range of Motion, Normal Inspection Respiratory: Decreased Breath Sounds, Wheezing Cardiovascular: Regular Rate, Rhythm, No Murmur Capillary Refill: Less Than 3 Seconds Gastrointestinal: non tender, soft Results Lab Laboratory Tests 03/22/17 07:30 03/23/17 05:27 Assessment/Plan Assessment/Plan COPDAE-- pt is doing better then yesterday -SVNS -Solumedrol decrease to 40 IV Q 6 -BiPAP PRN Lung cancer squamous cell 254 Clinical Quality Measures DVT/VTE Risk/Contraindication: Risk Factor Score Per Nursin RFS Level Per Nursing on Admit: 4+=Very High ALTAGRACIA WALLACE DO Mar 23, 2017 06:13
[2017-03-23 06:18] LABS: ALANINE AMINOTRANSFERASE 23 U/L (0-55); ALBUMIN 3.7 GM/DL (3.2-4.5); ANION GAP 8 MMOL/L (5-14); ASPARTATE AMINO TRANSFERASE 20 U/L (5-34); BILIRUBIN,TOTAL 0.5 MG/DL (0.1-1.0); BLOOD UREA NITROGEN 15 MG/DL (7-18); BUN/CREATININE RATIO 21; CALCIUM 9.4 MG/DL (8.5-10.1); CARBON DIOXIDE 40 MMOL/L (21-32); CHLORIDE 92 MMOL/L (98-107); CREATININE SERUM 0.73 MG/DL (0.60-1.30); GFR ESTIMATED > 60; GLUCOSE 199 MG/DL (70-105); POTASSIUM 4.3 MMOL/L (3.6-5.0); SODIUM 140 MMOL/L (135-145); TOTAL PROTEIN 6.5 GM/DL (6.4-8.2)
[2017-03-23] MEDS ORDERED: RT-ALBUTEROL/IPRATROPIUM 3 ML (DUONEB) VIAL ONE ×2 (06:57→10:50)
[2017-03-23] MEDS ORDERED: RT-ALBUTEROL/IPRATROPIUM 3 ML (DUONEB) VIAL INH ONE (07:03)
[2017-03-23] MEDS: RT-LEVALBUTEROL (XOPENEX) 1.25 MG/3 ML NEB NON-FORMULARY INH SCH (07:03)
[2017-03-23] MEDS: RT-BUDESONIDE NEBS 0.5 MG/2ML (PULMICORT) AMP INH SCH ×3 (07:04→21:30)
--- NOTE | 2017-03-23 08:24 | Diagnostic Imaging Report ---
INDICATION: Exacerbation of COPD. FINDINGS: Upright portable chest shows stable heart size and vascularity. There remains air trapping consistent with COPD. No mass or acute infiltrate is seen. There is no effusion or pneumothorax. The chest is similar to the prior study from 03/22/2017. IMPRESSION: Stable chest. Dictated by: Dictated on workstation # [id number]
[2017-03-23] MEDS ORDERED: morphine INJ 4 MG/ML 1 ML (VIAL/SYRINGE) IVP NR (08:43)
[2017-03-23] MEDS: NITROGLYCERIN 0.4 MG SL TABS BTL 25'S SL PRN (08:58)
[2017-03-23] MEDS ORDERED: CALCIUM CARBONATE 1177 MG PO PRN (09:00)
[2017-03-23] MEDS ORDERED: [UNRECOGNIZED DRUG - OTHER] PO SCH (09:00)
[2017-03-23] MEDS ORDERED: CALCIUM CARBONATE PO SCH (09:00)
[2017-03-23] MEDS ORDERED: VITAMIN D3 PO SCH (09:00)
[2017-03-23] MEDS: lisINopril 10 MG (PRINIVIL) TAB PO SCH (09:13)
[2017-03-23] MEDS: meTOprolol TARTRATE 50 MG (LOPRESSOR) TAB PO SCH ×2 (09:13→20:57)
[2017-03-23] MEDS: PANTOPRAZOLE 40 MG (PROTONIX) TAB PO SCH (09:14)
[2017-03-23] MEDS: RT-ALBUTEROL/IPRATROPIUM 3 ML (DUONEB) VIAL INH SCH ×4 (10:59→21:30)
[2017-03-23] MEDS ORDERED: ENOXAPARIN 100 MG/1 ML (LOVENOX) SYR SC SCH (11:00)
[2017-03-23] MEDS ORDERED: CLOPIDOGREL 300 MG (PLAVIX) TABLET PO NR (11:00)
--- NOTE | 2017-03-23 11:28 | Consultation-Cardiology ---
HPI-Cardiology Cardiology Consultation: Date of Consultation 03/23/17 Date of Admission Attending Physician Sanju Morris DO Admitting Physician Sanju Morris DO Consulting Physician Melanie FUNK MD HPI: Time Seen by Provider: 10:00 Chief Complaint: chest pain, shortness of breath this is a 72-year-old lady who is a patient of Dr. Pal and Dr. Morris. She has extensive medical and cardiac history. She is known history of pulmonary malignancy status post chemotherapy and radiation therapy. She also has severe COPD. She quit smoking in 2012. Chest significant history of coronary artery disease, status post CABG. Last angiography was in [address] Pal. Chronic diastolic heart failure. History of PAD with bilateral iliac stenting. History of irregular heart rhythm however unclear whether it is atrial fibrillation. she presented yesterday with significant shortness of breath. This morning she had a prolonged episode of chest pain. Severe intensity. 12/16. Substernal. No radiation. Responded to nitroglycerin. Associated with shortness of breath. Review of Systems-Cardiology Review of Systems Constitutional: No As described under HPI, No no symptoms reported, No chills, No fever, No lightheadedness, No malaise, No tiredness, No weight loss, No weight gain, No other Eyes: No As described under HPI, No no symptoms reported, No blindness, No blurred vision, No contact lenses, No drainage, No decreased acuity, No foreign body sensation, No glasses, No inflammation, No pain, No photophobia, No previous injury, No shadows, No tunnel vision, No other, No vision change Ears/Nose/Throat: No As described under HPI, No no symptoms reported, No chronic hearing loss, No epistaxis, No ear discharge, No ear pain, No loose teeth, No mouth pain, No mouth swelling, No nasal drainage, No nose pain, No recent hearing loss, No throat pain, No throat swelling, No ulcerations, No other Respiratory: orthopnea, shortness of breath Cardiovascular: chest pain Gastrointestinal: No no symptoms reported, No As described under HPI, No abdomen distended, No abdominal pain, No blood streaked bowels, No constipation , No diarrhea, No difficulty swallowing, No nausea, No poor appetite, No poor fluid intake, No rectal bleeding, No vomiting, No other, No nausea/vomiting/ diarrhea, No stool coloration changes Genitourinary: No no symptoms reported, No As described under HPI, No burning, No dysuria, No discharge, No frequency, No flank pain, No hematuria, No incontinence, No pain, No urgency, No other, No urine frequency changes, No urine coloration changes : No Musculoskeletal: No no symptoms reported, No As describe under HPI, No back pain, No gout, No joint pain, No joint swelling, No muscle pain, No muscle stiffness, No neck pain, No other Skin: No no symptoms reported, No As described under HPI, No change in color, No change in hair/nails, No dryness, No lesions, No lumps, No rash, No other, No skin related problems, No ulcerations, No rash on exposed areas, No ulcerations on exposed areas Psychiatric/Neurological: No no symptoms reported, No As described under HPI, No anxiety, No depression, No emotional problems, No headache, No numbness, No pre-existing deficit, No seizure, No tingling, No tremors, No weakness, No other , No focal weakness, No syncope XRJ-[id number]-Kaiuxg Hx Patient Social History Marrital Status: Employed/Student: unemployed Alcohol Use: Denies Use Recreational Drug Use: No Smoking Status: Former Smoker Former smoker/When Quit: Jul 11, 2012 Type Used: Cigarettes Recent Foreign Travel: No Recent Infectious Disease Expo: No Physical Abuse Screen: No Sexual Abuse: No Immunizations Up To Date Tetanus Booster (TDap): Less than 5yrs Date of Pneumonia Vaccine: Jan 07, 2016 Date of Influenza Vaccine: Jan 06, 2017 Past Medical History PMH As described under Assessment. Family Medical History Family Medical History: She reports her father had CAD and HTN. She also reports a sister with CAD and HTN. Family History: Chest pain 09 SISTER Congestive heart failure G-MA Family history: Cardiovascular disease 03 FATHER (68) 09 SISTER Family history: Hypertension 03 FATHER 09 SISTER G-MA Stroke Allergies and Home Medications Allergies Coded Allergies: Penicillins (Verified Allergy, Severe, ANAPHYLAXIS, 09/04/16) hydrochlorothiazide (Verified Allergy, Intermediate, RASH, 01/29/17) penicillin G (Verified Allergy, Unknown, 09/04/16) Home Medications Acetaminophen with Codeine 1 Each Tablet, 1 TAB PO HS, (Reported) Albuterol Sulfate 2.5 Mg/3 Ml Vial.neb, 2.5 MG NEB 5XD PRN for SHORTNESS OF BREATH, (Reported) Alendronate Sodium 70 Mg Tablet, 70 MG PO Sa, (Reported) Aspirin 81 Mg Tablet.dr, 81 MG PO 1300, (Reported) Atorvastatin Calcium 40 Mg Tablet, 40 MG PO HS, (Reported) Budesonide/Formoterol Fumarate 10.2 Gm Hfa.aer.ad, 2 PUFF IH BID, (Reported) Calcium Carbonate 1,177 Mg Tab.chew, 1,177 MG PO QID PRN for INDIGESTION, ( Reported) Calcium Carbonate/Vitamin D3 1 Each Tablet, 1 TAB PO DAILY, (Reported) Cetirizine HCl 10 Mg Tablet, 10 MG PO HS, (Reported) Ciprofloxacin HCl 500 Mg Tablet, 500 MG PO BID for 7 Days, (Reported) 7 DAY SUPPLY FILLED 03-21-17 Furosemide 20 Mg Tablet, 20 MG PO 1300, (Reported) Hydromorphone HCl 2 Mg Tablet, 2 MG PO Q4H PRN for PAIN-SEVERE, (Reported) Levothyroxine Sodium 50 Mcg Tablet, 50 MCG PO HS, (Reported) Lisinopril 10 Mg Tablet, 10 MG PO DAILY, (Reported) Metoprolol Tartrate 50 Mg Tablet, 50 MG PO BID, (Reported) Multivits,Stress Formula 1 Each Tablet, 1 TAB PO DAILY, (Reported) Nitroglycerin 0.4 Mg Tab.subl, 0.4 MG SL UD PRN for CHEST PAIN, (Reported) Ondansetron HCl 8 Mg Tablet, 8 MG PO Q8H PRN for NAUSEA/VOMITING-1ST LINE, ( Reported) Pantoprazole Sodium 40 Mg Tablet.dr, 40 MG PO DAILY, (Reported) Promethazine HCl/Codeine 118 Ml Syrup, 10 ML PO TID PRN for COUGH, (Reported) Tiotropium [place] 4 Gm Mist.inhal, 2 PUFF IH DAILY, (Reported) Ubidecarenone 200 Mg Capsule, 200 MG PO HS, (Reported) Physical Exam-Cardiology Physical Exam Vital Signs/I&O Vital Sign - Last 12Hours 03/22/17 03/23/17 03/23/17 03/23/17 23:59 00:00 01:00 01:12 Temp 97.1 Pulse 95 98 88 Resp 24 20 B/P (MAP) 168/79 (108) Pulse Ox 97 98 94 O2 Delivery NIV Bilevel Nasal Cannula O2 Flow Rate 40.00 3.00 03/23/17 03/23/17 03/23/17 03/23/17 04:00 07:08 07:35 08:37 Temp 98.1 98.4 98.2 Pulse 97 82 153 Resp 22 22 26 B/P (MAP) 158/87 (110) 153/75 (101) 179/111 (133) Pulse Ox 98 94 98 94 O2 Delivery Nasal Cannula OxyMask OxyMask Nasal Cannula O2 Flow Rate 3.00 3.00 3.00 3.00 03/23/17 11:00 Pulse Ox 99 O2 Delivery Nasal Cannula O2 Flow Rate 2.50 Intake and Output 03/23/17 00:00 Intake Total 0 ml Output Total 2400 ml Balance -2400 ml Capillary Refill : Less Than 3 Seconds Constitutional: AAO x 3, apparent distress HEENT: No PERRL, No normal ENT inspection, No TMs normal, No pharynx normal, No scleral icterus (R), No scleral icterus (L), No pale conjunctivae (R), No pale conjunctivae (L), No photophobia, No TM abnormal (R), No TM abnormal (L), No pharyngeal erythema, No tonsillar exudate, No other, No discharge, No EOMI, No hearing is well preserved, No hard of hearing, No oral hygience is good, No ulceration, No xanthelasmas are seen Neck: No non-tender, No full range of motion, No supple, No normal inspection, No carotid bruit, No limited range of motion, No lymphadenopathy (R), No lymphadenopathy (L), No tender lateral, No tender midline, No thyromegaly, No other, No carotid pulses are 2 + bilaterally, No with good upstrokes Respiratory: accessory muscle use, respiratory distress, other (course breathing) Cardiovascular: tachycardia, S1 and S2 Gastrointestinal: No tender, No soft, No round, No distended, No pulsatile mass , No organomegaly, No guarding, No rebound, No tenderness, No hernia, No mass, No audible bowel sounds, No abnormal bowel sounds, No abdominal bruits, No spleenomegaly, No other Rectal: deferred Extremities: No normal range of motion, No non-tender, No normal inspection, No pedal edema, No calf tenderness, No normal capillary refill, No pelvis stable , No calf tenderness, No inflammation, No pedal edema, No slow capillary refill , No swelling, No other, No abrasion, No clubbing, No cyanosis, No ecchymosis, No laceration, No no lower extremity edema bilateral, No significant edema, No tenderness, No wound Neurologic/Psychiatric: No green promotions specialist II-XII nml as tested, No no motor/sensory deficits, No alert, No normal mood/affect, No oriented x 3, No abnormal cerebellar tests, No abnormal green promotions specialist II-XII, No abnormal gait, No aphasia, No EOM palsy, No facial droop, No motor weakness, No sensory deficit, No depressed affect, No disoriented x 3, No other, No grossly intact, No power is 5/5 both on sides Skin: No normal color, No warm/dry, No cyanosis, No cool, No diaphoresis, No damp, No ecchymosis, No jaundice, No mottled, No pallor, No rash, No tattoos/ piercings, No ulcerations, No rash on exposed areas, No ulcerations on exposed areas, No other Data Review Labs Laboratory Tests 03/22/17 11:34: Blood Gas Puncture Site r rad, Blood Gas Patient Temperature 99.3, Arterial Blood pH 7.38, Arterial Blood Partial Pressure CO2 80*H, Arterial Blood Partial Pressure O2 92, Arterial Blood HCO3 46*H, Arterial Blood Total CO2 48.1H, Arterial Blood Oxygen Saturation 98, Arterial Blood Base Excess 19.4H, Bruce Test YES-POS, Blood Gas Ventilator Setting NO, Blood Gas Inspired Oxygen 40% 03/22/17 20:50: Random Tobramycin Level 3.0L 03/23/17 05:27: White Blood Count 6.5, Red Blood Count 3.34L, Hemoglobin 9.9L, Hematocrit 34L, Mean Corpuscular Volume 101H, Mean Corpuscular Hemoglobin 30, Mean Corpuscular Hemoglobin Concent 29L, Red Cell Distribution Width 13.3, Platelet Count 277, Mean Platelet Volume 10.4, Neutrophils (%) (Auto) 93H, Lymphocytes (%) (Auto) 3L , Monocytes (%) (Auto) 4, Eosinophils (%) (Auto) 0, Basophils (%) (Auto) 0, Neutrophils # (Auto) 6.0, Lymphocytes # (Auto) 0.2L, Monocytes # (Auto) 0.3, Eosinophils # (Auto) 0.0, Basophils # (Auto) 0.0, Sodium Level 140, Potassium Level 4.3, Chloride Level 92L, Carbon Dioxide Level 40H, Anion Gap 8, Blood Urea Nitrogen 15, Creatinine 0.73, Estimat Glomerular Filtration Rate > 60, BUN/ Creatinine Ratio 21, Glucose Level 199H, Calcium Level 9.4, Total Bilirubin 0.5 , Aspartate Amino Transf (AST/SGOT) 20, Alanine Aminotransferase (ALT/SGPT) 23, Alkaline Phosphatase 70, Total Protein 6.5, Albumin 3.7 03/23/17 09:24: Troponin I < 0.30 Microbiology 03/22/17 Gram Stain - Final, Resulted 03/22/17 Sputum Culture - Preliminary, Resulted Gram Negative Ward See Comments ECG Impression ECG Comment atrial tachycardia with no ST-T wave abnormalities A/P-Cardiology Assessment/Admission Diagnosis severe COPD, acute diastolic congestive heart failure, chest pain, CAD, PAD, atrial tachycardia. Plan severe dyspnea with COPD exacerbation. Deferred to Dr. Morris and Dr. Dubois. acute diastolic congestive heart failure. Continue Lasix. history of lung cancer. Non-surgically resected. Received chemotherapy and radiation therapy. Significant response according to the patient. chest pain prolonged episode. Responded to nitroglycerin. No chest pain at this point in time. We will give Lovenox ACS dose. Plavix bolus. Continue aspirin. Troponin serial. First troponin is negative. EKG did not show any ST deviation however atrial tachycardia was noted.CAD. S/p CABG Feb [address] Guzman in [place], [place]. She had LEMUS to LAD, SVG to PDA, and sequential SVG to diagonal and OM. Last cardiac cath was on 07/12/15 and it showed multivessel CAD with patent SVG to distal RCA, patent LEMUS to distal LAD, and a sequential SVG with 50-60% mid-graft stenosis that was patent to first diag but occluded to OM. She underwent successful balloon angioplasty of the OM to which the graft was occluded. LVEF 60% on cath 07/12/15 with mild elevation of LVEDP Echocardiogram from January 03, 2015 showed LVEF 60%. Last echo of 04/19/[address] Funk showed LVEF 55-60%, mod diastolic dysfunction of LV, severe pulm htn with RVSP approx 72 mmHg tachycardia/atrial tachycardia: Probably and respond to severe COPD exacerbation and albuterol therapy. Should improve with metoprolol. PAD. 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 Pt states pathology came back as non-malignant (COPD) H/o intermittent pneumonia Tobacco use quit in early 2012 Hypertension COPD with associated pulm hypertension Hyperlipidemia, controlled Hypothyroidism being treated with thyroid replacement therapy Carotid u/s from July 2014 showed minimal bilat carotid arterial disease without evidence of hemodynamic significance Mild hyperglycemia, suggestive of borderline DM II, on blood work of 07/12/15 Thank you for your consultation. Please call me if you have any questions. Paddy Funk MD, FACP, FACC, FSCAI, FHRS, CCDS Interventional Cardiology Cardiac Electrophysiology Vascular Medicine and Endovascular Interventions Clinical Quality Measures DVT/VTE Risk/Contraindication: Risk Factor Score Per Nursin RFS Level Per Nursing on Admit: 4+=Very High Melanie FUNK MD Mar 23, 2017 11:28 am
[2017-03-23] MEDS: NS IV SCH (11:52)
[2017-03-23] MEDS: TOBRAMYCIN IV SCH (11:52)
[2017-03-23] MEDS: FUROSEMIDE 20 MG (LASIX) TAB PO SCH (12:19)
[2017-03-23] MEDS: ENOXAPARIN 60 MG/0.6 ML (LOVENOX) SYR SC SCH ×2 (12:20→23:08)
[2017-03-23] MEDS: ASPIRIN E.C. 81 MG (ECOTRIN) TAB PO SCH (12:20)
--- NOTE | 2017-03-23 12:48 | Progress Note-Hospitalist ---
Standard Progress Note Progress Notes/Assess & Plan Date Seen 03/23/17 Time Seen by Provider: 12:44 Assess & Plan/Chief Complaint The patient is a 72-year-old white female patient of Dr. Boss. She was admitted yesterday after having a weeklong decline in her respiratory condition. She states that she had seen NORMA Cody relative to her cardiac issues earlier in the week. And he told her that she was doing just great only to end up being admitted for respiratory issues. She states that she has chronic sputum production which is usually clear to white. The color had not really changed but the amount had increased as well as the tightness in her chest and the decline in exercise tolerance was noted on a day-to-day basis. Physical exam: We have a slender white female who appears comfortable at rest. Lungs show distant breath sounds but no wheezing or rhonchi. CV was regular. Extremities showed no pedal edema. Impression: COPD in exacerbation. 2.coronary artery disease. Plan: Continue present medications. Restart home meds. Labs Laboratory Tests 03/22/17 07:30 03/23/17 05:27 MORGAN ROJAS MD Mar 23, 2017 12:48
[2017-03-23] MEDS ORDERED: NITROGLYCERIN 0.4 MG SL TABS BTL 25'S SL PRN (13:00)
[2017-03-23] MEDS ORDERED: RT-ALBUTEROL SULF 2.5 MG/3 ML PRE-MIX VIAL INH PRN (13:00)
[2017-03-23] MEDS: HYDROmorphone (DILAUDID) 2 MG TAB PO PRN ×2 (14:41→19:32)
[2017-03-23] MEDS: RT-ADVAIR HFA 115/21 MCG PER PUFF IH SCH (18:23)
[2017-03-23] MEDS: CATHETER FLUSH 10 ML SYR IV PRN (18:24)
[2017-03-23] MEDS: ATORVASTATIN 40 MG (LIPITOR) TABLET PO SCH (20:56)
[2017-03-23] MEDS: LEVOTHYROXINE 50 MCG (LEVOTHROID) TAB PO SCH (20:57)
[2017-03-23] MEDS ORDERED: NON-FORMULARY MEDICATION 1 EA EA (Ubidecarenone (Co Q-10) 200 MG) PO SCH (21:00)
[2017-03-23] MEDS ORDERED: RT-SYMBICORT 160/4.5 MCG INHALER PER PUFF IH SCH (21:00)
[2017-03-23] MEDS ORDERED: [UNRECOGNIZED DRUG - OTHER] PO SCH (21:00)
[2017-03-23] MEDS ORDERED: ACETAMINOPHEN WITH CODEINE PO SCH (21:00)
[2017-03-23] MEDS: APAP 300 MG/CODEINE 30 MG (TYLENOL #3) TAB PO SCH (23:07)
[2017-03-24] VITALS: BP 125/69
[2017-03-24] MEDS: RT-ALBUTEROL/IPRATROPIUM 3 ML (DUONEB) VIAL INH SCH ×6 (01:51→21:22)
[2017-03-24 04:00] VITALS: BP 121/71
[2017-03-24] MEDS: methylPREDNISolone 40 MG/ML (Solu-MEDROL) VIAL IV SCH ×3 (05:18→17:55)
[2017-03-24] MEDS: PANTOPRAZOLE 40 MG (PROTONIX) TAB PO SCH (05:18)
[2017-03-24] MEDS: RT-BUDESONIDE NEBS 0.5 MG/2ML (PULMICORT) AMP INH SCH ×3 (06:47→21:22)
[2017-03-24 07:25] VITALS: BP 130/80
[2017-03-24] MEDS: CALCIUM CARB + VIT D 600 MG (CALCARB + D) TAB PO SCH (07:57)
[2017-03-24] MEDS: LEVOFLOXACIN 750 MG/D5W 150 ML (PRE-MIX) IV SCH (07:57)
[2017-03-24] MEDS: lisINopril 10 MG (PRINIVIL) TAB PO SCH (07:57)
[2017-03-24] MEDS: CLOPIDOGREL 75 MG (PLAVIX) TABLET PO SCH (07:57)
[2017-03-24] MEDS: meTOprolol TARTRATE 50 MG (LOPRESSOR) TAB PO SCH ×2 (07:57→20:50)
[2017-03-24] MEDS: RT-ADVAIR HFA 115/21 MCG PER PUFF IH SCH ×2 (10:39→19:32)
--- NOTE | 2017-03-24 11:09 | Progress Note-Hospitalist ---
Standard Progress Note Progress Notes/Assess & Plan Date Seen 03/24/17 Time Seen by Provider: 11:06 Assess & Plan/Chief Complaint The patient reports that she feels much better than on admission. She reports that she has concerns about her general state of weakness. Even prior to this admission she has had marginal ability to perform the activities of daily living. She is also frustrated that her home health visits have been cut. She worries that even with IV treatment she will soon be back to a recurrent bronchitis. She was informed that unfortunately this is a difficult problem with severe COPD and chronic bronchitis. Physical exam: She is less tachypneic. Lungs show distant breath sounds without wheezing. CV is regular without murmur. Extremities show no pedal edema. Impression: Exacerbation of COPD. 2.Pseudomonas growing and sputum culture. Plan: Continue aggressive pulmonary toilet. Tobramycin has been added to address the Pseudomonas. Labs Laboratory Tests 03/23/17 05:27 MORGAN ROJAS MD Mar 24, 2017 11:09
[2017-03-24] MEDS: ENOXAPARIN 60 MG/0.6 ML (LOVENOX) SYR SC SCH ×2 (11:27→23:17)
[2017-03-24] MEDS: TOBRAMYCIN IV SCH (11:28)
[2017-03-24] MEDS: NS IV SCH (11:28)
[2017-03-24 11:35] VITALS: BP 138/75
[2017-03-24] MEDS: FUROSEMIDE 20 MG (LASIX) TAB PO SCH (12:00)
[2017-03-24] MEDS: HYDROmorphone (DILAUDID) 2 MG TAB PO PRN (12:00)
[2017-03-24] MEDS: ASPIRIN E.C. 81 MG (ECOTRIN) TAB PO SCH (12:00)
[2017-03-24 15:33] VITALS: BP 110/65
--- NOTE | 2017-03-24 18:02 | Cardiology Progress Note ---
Cardiology SOAP Progress Note Subjective: No further chest pain. Objective: I&O/Vital Signs Vital Sign - Last 12Hours 03/24/17 03/24/17 03/24/17 03/24/17 06:48 06:48 07:00 07:25 Temp 98.1 Pulse 85 88 Resp 22 B/P (MAP) 130/80 (97) Pulse Ox 94 95 O2 Delivery Nasal Cannula Nasal Cannula Nasal Cannula O2 Flow Rate 2.50 2.50 2.50 03/24/17 03/24/17 03/24/17 03/24/17 09:00 10:40 10:40 11:35 Temp 99.1 Pulse 86 Resp 20 B/P (MAP) 138/75 (96) Pulse Ox 95 93 O2 Delivery Nasal Cannula Nasal Cannula Nasal Cannula Nasal Cannula O2 Flow Rate 2.50 2.50 2.50 2.50 03/24/17 03/24/17 03/24/17 03/24/17 13:00 13:51 13:52 15:33 Temp 98.3 Pulse 86 95 Resp 20 B/P (MAP) 110/65 (80) Pulse Ox 95 93 O2 Delivery Nasal Cannula Nasal Cannula Nasal Cannula O2 Flow Rate 2.50 2.50 2.00 Intake and Output 03/24/17 00:00 Intake Total 1302 ml Output Total 900 ml Balance 402 ml Weight (Pounds): 105 Weight (Ounces): 9.0 Weight (Calculated Kilograms): 47.180679 Constitutional: AAO x 3, apparent distress Respiratory: accessory muscle use, respiratory distress, other (course breathing) Cardiovascular: tachycardia, S1 and S2 Gastrointestional: No tender, No soft, No round, No distended, No pulsatile mass, No organomegaly, No guarding, No rebound, No tenderness, No hernia, No mass, No audible bowel sounds, No abnormal bowel sounds, No abdominal bruits, No spleenomegaly, No other Extremities: No normal range of motion, No non-tender, No normal inspection, No pedal edema, No calf tenderness, No normal capillary refill, No pelvis stable , No calf tenderness, No inflammation, No pedal edema, No slow capillary refill , No swelling, No other, No abrasion, No clubbing, No cyanosis, No ecchymosis, No laceration, No no lower extremity edema bilateral, No significant edema, No tenderness, No wound Neurologic/Psychiatric: No programmer analyst consultant II-XII nml as tested, No no motor/sensory deficits, No alert, No normal mood/affect, No oriented x 3, No abnormal cerebellar tests, No abnormal programmer analyst consultant II-XII, No abnormal gait, No aphasia, No EOM palsy, No facial droop, No motor weakness, No sensory deficit, No depressed affect, No disoriented x 3, No other, No grossly intact, No power is 5/5 both on sides Skin: No normal color, No warm/dry, No cyanosis, No cool, No diaphoresis, No damp, No ecchymosis, No jaundice, No mottled, No pallor, No rash, No tattoos/ piercings, No ulcerations, No rash on exposed areas, No ulcerations on exposed areas, No other Results/Procedures: Labs Microbiology 03/22/17 Blood Culture - Preliminary, Resulted No growth 03/22/17 Gram Stain - Final, Complete 03/22/17 Sputum Culture - Final, Complete Pseudomonas Aeruginosa Presumptive Susanne Albicans A/P: Assessment/Dx: severe COPD, acute diastolic congestive heart failure, chest pain, CAD, PAD, atrial tachycardia. Plan: severe dyspnea with COPD exacerbation. Deferred to Dr. Morris and Dr. Dubois. acute diastolic congestive heart failure. Continue Lasix. history of lung cancer. Non-surgically resected. Received chemotherapy and radiation therapy. Significant response according to the patient. chest pain prolonged episode. Responded to nitroglycerin. No chest pain afterwards. Serial troponin negative, EKG negative. dc lovonex. CAD. S/p CABG Feb [address] Guzman in [place], [place]. She had LEMUS to LAD, SVG to PDA, and sequential SVG to diagonal and OM. Last cardiac cath was on 07/12/15 and it showed multivessel CAD with patent SVG to distal RCA, patent LEMUS to distal LAD , and a sequential SVG with 50-60% mid-graft stenosis that was patent to first diag but occluded to OM. She underwent successful balloon angioplasty of the OM to which the graft was occluded. LVEF 60% on cath 07/12/15 with mild elevation of LVEDP Echocardiogram from January 03, 2015 showed LVEF 60%. Last echo of 04/19/[address] Funk showed LVEF 55-60%, mod diastolic dysfunction of LV, severe pulm htn with RVSP approx 72 mmHg tachycardia/atrial tachycardia: Probably and respond to severe COPD exacerbation and albuterol therapy. Should improve with metoprolol. PAD. 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 Pt states pathology came back as non-malignant (COPD) H/o intermittent pneumonia Tobacco use quit in early 2012 Hypertension COPD with associated pulm hypertension Hyperlipidemia, controlled Hypothyroidism being treated with thyroid replacement therapy Carotid u/s from July 2014 showed minimal bilat carotid arterial disease without evidence of hemodynamic significance Mild hyperglycemia, suggestive of borderline DM II, on blood work of 07/12/15 Dr Pal to take over care tomorrow morning. Thank you for your consultation. Please call me if you have any questions. Paddy Funk MD, FACP, FACC, FSCAI, FHRS, CCDS Interventional Cardiology Cardiac Electrophysiology Vascular Medicine and Endovascular Interventions Melanie FUNK MD Mar 24, 2017 6:01 pm
[2017-03-24 20:00] VITALS: BP 131/67
[2017-03-24] MEDS: ATORVASTATIN 40 MG (LIPITOR) TABLET PO SCH (20:50)
[2017-03-24] MEDS: LEVOTHYROXINE 50 MCG (LEVOTHROID) TAB PO SCH (20:51)
[2017-03-24] MEDS: APAP 300 MG/CODEINE 30 MG (TYLENOL #3) TAB PO SCH (23:17)
[2017-03-25] VITALS (7 sets, daily range): BP systolic 106–174; BP diastolic 64–92
[2017-03-25] MEDS: RT-ALBUTEROL/IPRATROPIUM 3 ML (DUONEB) VIAL INH SCH ×6 (02:20→23:02)
[2017-03-25] MEDS: methylPREDNISolone 40 MG/ML (Solu-MEDROL) VIAL IV SCH ×2 (06:12)
[2017-03-25] MEDS: PANTOPRAZOLE 40 MG (PROTONIX) TAB PO SCH (06:12)
[2017-03-25] MEDS: RT-BUDESONIDE NEBS 0.5 MG/2ML (PULMICORT) AMP INH SCH ×3 (06:35→23:02)
[2017-03-25] MEDS: RT-ADVAIR HFA 115/21 MCG PER PUFF IH SCH ×2 (06:35→18:30)
[2017-03-25] MEDS: CALCIUM CARBONATE 500 MG (TUMS) TAB.CHEW PO PRN ×2 (07:08→23:22)
--- NOTE | 2017-03-25 07:29 | Pulmonary Progress Note ---
Subjective Time Seen by Provider: 07:29 Subjective/Events-last exam No complications noted. Exam Exam Vital Signs Date Time Temp Pulse Resp B/P (MAP) Pulse Ox O2 Delivery O2 Flow Rate FiO2 03/25/17 06:41 98 Nasal Cannula 3.00 03/25/17 06:40 98 Nasal Cannula 3.00 03/25/17 06:35 92 Nasal Cannula 3.00 03/25/17 04:00 97.8 90 22 124/72 (89) 96 Nasal Cannula 2.50 03/25/17 02:20 95 Nasal Cannula 3.00 03/25/17 01:00 86 03/25/17 00:00 98.3 89 20 119/79 (92) 96 Nasal Cannula 2.50 03/24/17 21:27 99 Nasal Cannula 3.00 03/24/17 21:24 96 Nasal Cannula 3.00 03/24/17 20:00 98.3 92 22 131/67 (88) 97 Nasal Cannula 2.50 03/24/17 20:00 Nasal Cannula 2.50 03/24/17 19:37 93 Nasal Cannula 3.00 03/24/17 19:32 91 Nasal Cannula 2.50 03/24/17 19:00 108 03/24/17 15:33 98.3 95 20 110/65 (80) 93 Nasal Cannula 2.00 03/24/17 13:52 Nasal Cannula 2.50 03/24/17 13:51 95 Nasal Cannula 2.50 03/24/17 13:00 86 03/24/17 11:35 99.1 86 20 138/75 (96) 93 Nasal Cannula 2.50 03/24/17 10:40 Nasal Cannula 2.50 03/24/17 10:40 95 Nasal Cannula 2.50 03/24/17 09:00 Nasal Cannula 2.50 I & O 03/25/17 07:00 Intake Total 1518 ml Output Total 2150 ml Balance -632 ml General Appearance: No Apparent Distress, WD/WN, Thin HEENT: Normal ENT Inspection Neck: Full Range of Motion, Normal Inspection Respiratory: Decreased Breath Sounds, Wheezing Cardiovascular: Regular Rate, Rhythm, No Murmur Capillary Refill: Less Than 3 Seconds Gastrointestinal: non tender, soft Extremity: Normal Capillary Refill, Normal Inspection Neurologic/Psychiatric: Alert Skin: Normal Color, Warm/Dry Lymphatic: No Adenopathy Assessment/Plan Assessment/Plan COPDAE-- pt is doing better then yesterday -SVNS -Solumedrol decrease to 40 IV Q 6 -BiPAP PRN 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
--- NOTE | 2017-03-25 07:44 | Progress Note (SOAP) ---
Subjective Time Seen by Provider: 07:40 Subjective/Events-last exam patient fragile. Patient weak. Patient breathing better. COPD with acute exacerbation. Colonized pseudomonas. Lung cancer. History of tobaccoism stopped in 2012 Consult aids social worker for helping her Objective Exam Vital Signs Date Time Temp Pulse Resp B/P (MAP) Pulse Ox O2 Delivery O2 Flow Rate FiO2 03/25/17 06:41 98 Nasal Cannula 3.00 03/25/17 06:40 98 Nasal Cannula 3.00 03/25/17 06:35 92 Nasal Cannula 3.00 03/25/17 04:00 97.8 90 22 124/72 (89) 96 Nasal Cannula 2.50 03/25/17 02:20 95 Nasal Cannula 3.00 03/25/17 01:00 86 03/25/17 00:00 98.3 89 20 119/79 (92) 96 Nasal Cannula 2.50 03/24/17 21:27 99 Nasal Cannula 3.00 03/24/17 21:24 96 Nasal Cannula 3.00 03/24/17 20:00 98.3 92 22 131/67 (88) 97 Nasal Cannula 2.50 03/24/17 20:00 Nasal Cannula 2.50 03/24/17 19:37 93 Nasal Cannula 3.00 03/24/17 19:32 91 Nasal Cannula 2.50 03/24/17 19:00 108 03/24/17 15:33 98.3 95 20 110/65 (80) 93 Nasal Cannula 2.00 03/24/17 13:52 Nasal Cannula 2.50 03/24/17 13:51 95 Nasal Cannula 2.50 03/24/17 13:00 86 03/24/17 11:35 99.1 86 20 138/75 (96) 93 Nasal Cannula 2.50 03/24/17 10:40 Nasal Cannula 2.50 03/24/17 10:40 95 Nasal Cannula 2.50 03/24/17 09:00 Nasal Cannula 2.50 I & O 03/25/17 07:00 Intake Total 1518 ml Output Total 2150 ml Balance -632 ml Capillary Refill : Less Than 3 Seconds General Appearance: No Apparent Distress, Thin HEENT: Normal ENT Inspection Neck: Normal Inspection Respiratory: No Accessory Muscle Use, No Respiratory Distress, Decreased Breath Sounds Cardiovascular: Regular Rate, Rhythm Gastrointestinal: non tender, soft Results Lab Microbiology 03/22/17 Blood Culture - Preliminary, Resulted No growth 03/22/17 Gram Stain - Final, Complete 03/22/17 Sputum Culture - Final, Complete Pseudomonas Aeruginosa Presumptive Susanne Albicans Assessment/Plan Assessment/Plan Assess & Plan/Chief Complaint ration and weak. COPD with acute exacerbation. Lung cancer. Coronary artery disease. Tachycardia. Chest pain. Weakness. Consult with aids social worker and physical therapy Clinical Quality Measures DVT/VTE Risk/Contraindication: Risk Factor Score Per Nursin RFS Level Per Nursing on Admit: 4+=Very High WEST MCCAULEY DO Mar 25, 2017 07:44
--- NOTE | 2017-03-25 08:37 | Progress Note-Cardiology ---
Cardiology SOAP Progress Note Subjective: Shortness of breath improved compared to time of admission No further cp. She feels that episode of cp a couple of days ago was due to "panic" because her oxygen had become detached from the wall supply Denies palp or syncope or swelling Objective: I&O/Vital Signs Vital Sign - Last 12Hours 03/24/17 03/24/17 03/25/17 03/25/17 21:24 21:27 00:00 01:00 Temp 98.3 Pulse 89 86 Resp 20 B/P (MAP) 119/79 (92) Pulse Ox 96 99 96 O2 Delivery Nasal Cannula Nasal Cannula Nasal Cannula O2 Flow Rate 3.00 3.00 2.50 03/25/17 03/25/17 03/25/17 03/25/17 02:20 04:00 06:35 06:40 Temp 97.8 Pulse 90 Resp 22 B/P (MAP) 124/72 (89) Pulse Ox 95 96 92 98 O2 Delivery Nasal Cannula Nasal Cannula Nasal Cannula Nasal Cannula O2 Flow Rate 3.00 2.50 3.00 3.00 03/25/17 03/25/17 06:41 07:00 Pulse 135 Pulse Ox 98 O2 Delivery Nasal Cannula O2 Flow Rate 3.00 Intake and Output 03/25/17 00:00 Intake Total 1168 ml Output Total 1650 ml Balance -482 ml Weight (Pounds): 105 Weight (Ounces): 9.0 Weight (Calculated Kilograms): 47.768869 Constitutional: AAO x 3, No apparent distress, well-developed, other (thin- appearing) Respiratory: other (Scattered rhonchi, fair air entry, prolonged exp phase) Cardiovascular: regular rate-rhythm, tachycardia, S1 and S2, systolic murmur ( faint MONA at card base) Gastrointestional: No tender, No guarding, No rebound, audible bowel sounds Extremities: No clubbing, No cyanosis, No significant edema Neurologic/Psychiatric: grossly intact, power is 5/5 both on sides Skin: No rash on exposed areas, No ulcerations on exposed areas Results/Procedures: Labs Microbiology 03/22/17 Blood Culture - Preliminary, Resulted No growth 03/22/17 Gram Stain - Final, Complete 03/22/17 Sputum Culture - Final, Complete Pseudomonas Aeruginosa Presumptive Susanne Albicans A/P: Assessment: Acute exacerbation of advanced COPD CAD. S/p CABG Feb [address] Guzman in [place], [place]. She had LEMUS to LAD, SVG to PDA, and sequential SVG to diagonal and OM. Last cardiac cath was on 07/12/15 and it showed multivessel CAD with patent SVG to distal RCA, patent LEMUS to distal LAD, and a sequential SVG with 50-60% mid-graft stenosis that was patent to first diag but occluded to OM. She underwent successful balloon angioplasty of the OM to which the graft was occluded. LVEF 60% on cath 07/12/15 with mild elevation of LVEDP Echocardiogram from January 03, 2015 showed LVEF 60%. Last echo of 04/19/[address] Funk showed LVEF 55-60%, mod diastolic dysfunction of LV, severe pulm htn with RVSP approx 72 mmHg Pulm htn, managed by Dr Dubois PAD. 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 Abdominal aortic aneurysm screening of February 2016 was negative for abdominal aortic aneurysm S/p radiation and chemo for right lung cancer in 2016, managed by Dr Contreras and Sherly H/o intermittent pneumonia Tobacco use quit in early 2012 Hypertension COPD with associated pulm hypertension Hyperlipidemia, controlled Hypothyroidism being treated with thyroid replacement therapy Carotid u/s from July 2014 showed minimal bilat carotid arterial disease without evidence of hemodynamic significance Plan: * I interviewed and examined the patient and reviewed her hosp course and had also (earlier) discussed her case with Dr Funk * The episode of cp appears to have been anxiety-related (see above under Subjective section). There is no evidence of ACS. She wishes to be managed conservatively only * D/c ACS-dose Lovenox * We again reviewed risk factor mod * Follow labs NORMA ALVARADO MD FACP [facility] Mar 25, 2017 08:37
[2017-03-25] MEDS ORDERED: predniSONE 10 MG TAB PO SCH (09:00)
[2017-03-25] MEDS: lisINopril 10 MG (PRINIVIL) TAB PO SCH (09:19)
[2017-03-25] MEDS: CALCIUM CARB + VIT D 600 MG (CALCARB + D) TAB PO SCH (09:19)
[2017-03-25] MEDS: meTOprolol TARTRATE 50 MG (LOPRESSOR) TAB PO SCH ×2 (09:19→19:53)
[2017-03-25] MEDS: CLOPIDOGREL 75 MG (PLAVIX) TABLET PO SCH (09:19)
--- NOTE | 2017-03-25 11:44 | Physical Therapy Evaluation ---
PT Evaluation-General Medical Diagnosis Admission Date Mar 22, 2017 at 07:53 Medical Diagnosis: acute exacerbation COPD Onset Date: Mar 22, 2017 Therapy Diagnosis Therapy Diagnosis: debility Height/Weight Height (Feet): 5 Height (Inches): 2.00 Weight (Pounds): 105 Weight (Ounces): 9.0 Precautions Precautions/Isolations: Standard Precautions Weight Bear Status Right Lower Extremity: Right Full Weight Bearing Left Lower Extremity: Left Full Weight Bearing Referral Physician: Sherly Reason for Referral: Evaluation/Treatment Medical History Pertinent Medical History: CAD, COPD, HTN, PVD Additional Medical History lung cancer Current History respiratory distress x 2 days Reviewed History: Yes Social History Home: Single Level Current Living Status: Alone Entry Into Home: Stairs With Railing PT Steps Into Home: 3 Prior/Core FIM Prior Level of Function Functional [place] Measure 0=Not Assessed/NA 4=Minimal Assistance 1=Total Assistance 5=Supervision or Setup 2=Maximal Assistance 6=Modified [place] 3=Moderate Assistance 7=Complete [place] Bed Mobility: 7 Transfers (B,C,W/C) (FIM): 7 Gait: 7 has 3 cats in the home PT Evaluation-Current Subjective Patient is very emotional, however, agrees to PT. Pain Numeric Pain Scale: 0-No Pain Location: No Pain Reported Pt/Family Goals return to home tomorrow. Objective Patient Orientation: Normal For Age Problem Solving: Good Attachments: Oxygen (2L NC continuous) ROM/Strength ROM Lower Extremities bilateral LE WNL Strength Lower Extremities right knee flexion/extension 4/5; hip flexion 4/5; DF/PF 4/5 left knee flexion/extension 4/5; hip flexion 4/5; DF/PF 4/5 Integumentary/Posture Integumentary refer to nursing notes Bowel Incontinence: No Bladder Incontinence: No Posture WFL Neuromuscular (Tone, Coordination, Reflexes) noted tremors bilateral UE's Sensory Vision: Functional Hearing: Functional Sensation Right Lower Extremit: Intact Sensation Left Lower Extremity: Intact Transfers Functional [place] Measure 0=Not Assessed/NA 4=Minimal Assistance 1=Total Assistance 5=Supervision or Setup 2=Maximal Assistance 6=Modified [place] 3=Moderate Assistance 7=Complete [place] Transfers (B, C, W/C) (FIM): 7 Scootin Rollin Supine to/from Sit: 7 Sit to/from Stand: 7 Gait Mode of Locomotion: Walk Anticipated Mode of Locomotion: Walk Gait (FIM): 6 Distance (FIM): 3=150 ft Distance: 300' x 2 Gait Level of Assist: 6 Gait Assistive Device: FWW Comments/Gait Description FWW use to conserve energy and pulmonary function Balance Sitting Static: Normal Sitting Dynamic: Normal Standing Static: Normal Standing Dynamic: Normal Assessment/Needs 72 y.o. female, will be seen x 2 sessions to ensure patient continues to demonstrate mod independent to independent LOF to safely return to home safey. Rehab Potential: Guarded PT Short Term Goals Short Term Goals Time Frame: Mar 26, 2017 Transfers (B,C,W/C) (FIM): 7 Gait (FIM): 6 Distance (FIM): 3=150 ft Gait Level of Assist: 6 Gait Assistive Device: None, FWW PT Plan Problem List Problem List: Other (pulmonary function) Treatment/Plan Treatment Plan: Continue Plan of Care Treatment Plan: Education, Functional Activity Alexi, Functional Strength, Gait , Safety, Therapeutic Exercise, Transfers Treatment Duration: Mar 26, 2017 Frequency: 2 times per week Estimated Hrs Per Day: .25 hour per day Patient and/or Family Agrees t: Yes Safety Risks/Education Patient Education: Disease Process, Safety Issues Teaching Recipient: Patient Teaching Methods: Discussion Response to Teaching: Verbalize Understanding Discharge Recommendations Therapy D/C Recommendations: Home Independently (pateint reports she has Ross for nursing) Time/GCodes Time In: 1115 Time Out: 1135 Total Billed Treatment Time: 20 Total Billed Treatment 1 visit EVModC 20 min G Codes Necessary: ANKITA Harman PT Mar 25, 2017 11:44
[2017-03-25] MEDS ORDERED: ENOXAPARIN 30 MG/0.3 ML (LOVENOX) SYR SC SCH (12:00)
[2017-03-25] MEDS: FUROSEMIDE 20 MG (LASIX) TAB PO SCH (12:05)
[2017-03-25] MEDS: ASPIRIN E.C. 81 MG (ECOTRIN) TAB PO SCH (12:05)
[2017-03-25] MEDS: HYDROmorphone (DILAUDID) 2 MG TAB PO PRN (15:48)
[2017-03-25] MEDS: LEVOTHYROXINE 50 MCG (LEVOTHROID) TAB PO SCH (19:53)
[2017-03-25] MEDS: ATORVASTATIN 40 MG (LIPITOR) TABLET PO SCH (19:54)
[2017-03-25] MEDS: APAP 300 MG/CODEINE 30 MG (TYLENOL #3) TAB PO SCH (19:54)
[2017-03-25] MEDS: NITROGLYCERIN 0.4 MG SL TABS BTL 25'S SL PRN (23:37)
[2017-03-26] VITALS (39 sets, daily range): BP systolic 84–140; BP diastolic 52–84
[2017-03-26] MEDS ORDERED: ADENOSINE 6 MG/2 ML (ADENOCARD) VIAL IV ONE ×2 (00:17→01:15)
[2017-03-26] MEDS ORDERED: DILTIAZEM 25 MG/5 ML INJ (CARDIZEM) VIAL ONE (00:26)
[2017-03-26] MEDS ORDERED: NS (IVPB) 100 ML ONE (00:27)
[2017-03-26] MEDS ORDERED: DILTIAZEM 125 MG/25 ML IV (CARDIZEM) IV ONE (00:27)
[2017-03-26] MEDS ORDERED: [UNRECOGNIZED DRUG - OTHER] IV SCH ×2 (01:15)
[2017-03-26] MEDS ORDERED: DILTIAZEM DRIP IV SCH ×2 (01:15)
[2017-03-26] MEDS ORDERED: DILTIAZEM 25 MG/5 ML INJ (CARDIZEM) VIAL IV ONE (01:15)
[2017-03-26] MEDS: ENOXAPARIN 60 MG/0.6 ML (LOVENOX) SYR SC SCH ×2 (01:19→13:02)
[2017-03-26] MEDS ORDERED: NS IV 500 ML 500 ML ONE (02:16)
[2017-03-26] MEDS ORDERED: NS IV 500 ML 500 ML IV ONE (02:30)
[2017-03-26] MEDS ORDERED: RT-ALBUTEROL/IPRATROPIUM 3 ML (DUONEB) VIAL ONE (02:35)
[2017-03-26] MEDS: RT-IPRATROPIUM (ATROVENT) 0.5MG/2.5ML AMP IH SCH ×4 (03:00→20:49)
[2017-03-26] MEDS: HYDROmorphone (DILAUDID) 2 MG TAB PO PRN ×2 (04:31→18:41)
[2017-03-26] MEDS: PANTOPRAZOLE 40 MG (PROTONIX) TAB PO SCH (04:33)
[2017-03-26 05:25] LABS: BASOPHILS % (AUTO) 0 % (0-10); EOSINOPHILS % (AUTO) 0 % (0-10); LYMPHOCYTES # (AUTO) 0.5 X 10^3 (1.0-4.0); LYMPHOCYTES % (AUTO) 6 % (12-44); MEAN CORPUSCULAR HEMOGLOBIN 30 PG (25-34); MEAN CORPUSCULAR HGB CONC 31 G/DL (32-36); MEAN CORPUSCULAR VOLUME 97 FL (80-99); MEAN PLATELET VOLUME 9.8 FL (7.4-10.4); MONOCYTES # (AUTO) 1.2 X 10^3 (0.0-1.0); MONOCYTES % (AUTO) 14 % (0-12); NEUTROPHILS # (AUTO) 7.2 X 10^3 (1.8-7.8); NEUTROPHILS % (AUTO) 80 % (42-75); PLATELET COUNT 359 10^3/uL (130-400); RED BLOOD COUNT 3.69 10^6/uL (4.35-5.85); RED CELL DISTRIBUTION WIDTH 13.7 % (10.0-14.5); WHITE BLOOD COUNT 8.9 10^3/uL (4.3-11.0)
[2017-03-26 05:40] LABS: ANION GAP 9 MMOL/L (5-14); BLOOD UREA NITROGEN 23 MG/DL (7-18); BUN/CREATININE RATIO 27; CALCIUM 8.7 MG/DL (8.5-10.1); CARBON DIOXIDE 38 MMOL/L (21-32); CHLORIDE 91 MMOL/L (98-107); CREATININE SERUM 0.84 MG/DL (0.60-1.30); GFR ESTIMATED > 60; GLUCOSE 263 MG/DL (70-105); MAGNESIUM 1.9 MG/DL (1.8-2.4); PHOSPHORUS 2.8 MG/DL (2.3-4.7); POTASSIUM 3.7 MMOL/L (3.6-5.0); SODIUM 138 MMOL/L (135-145)
[2017-03-26 06:04] LABS: THYROID STIMULATING HORMONE 0.37 UIU/ML (0.35-4.94)
--- NOTE | 2017-03-26 06:29 | Pulmonary Progress Note ---
Subjective Time Seen by Provider: 06:33 Subjective/Events-last exam PT was transferred to ICU last night for Afib RVR. Exam Exam Vital Signs Date Time Temp Pulse Resp B/P (MAP) Pulse Ox O2 Delivery O2 Flow Rate FiO2 03/26/17 05:00 88 15 120/68 (85) 92 Nasal Cannula 3.00 03/26/17 04:00 98.6 121 15 110/63 (79) 99 Nasal Cannula 3.00 03/26/17 04:00 96 Nasal Cannula 3.00 03/26/17 03:00 90 13 101/53 (69) 90 Nasal Cannula 3.00 03/26/17 02:00 141 22 87/58 (68) 96 Nasal Cannula 3.00 03/26/17 01:00 117 03/26/17 01:00 117 16 102/71 (81) 94 Nasal Cannula 3.00 03/26/17 00:45 130 15 95/66 (76) 95 Nasal Cannula 3.00 03/26/17 00:35 141 03/26/17 00:30 140 15 95 Nasal Cannula 3.00 03/26/17 00:23 133 14 112/84 (93) 96 Nasal Cannula 3.00 03/26/17 00:23 133 03/26/17 00:15 163 104/82 (89) 96 Nasal Cannula 3.00 03/26/17 00:07 184 03/26/17 00:00 98.6 165 114/83 (93) 96 Nasal Cannula 3.00 03/26/17 00:00 96 Nasal Cannula 3.00 03/25/17 23:35 163 24 135/88 (104) 96 Nasal Cannula 2.50 03/25/17 23:02 96 Nasal Cannula 3.00 03/25/17 23:02 96 Nasal Cannula 3.00 03/25/17 21:00 Nasal Cannula 2.50 03/25/17 19:08 97.6 111 20 131/68 (89) 95 Nasal Cannula 2.50 03/25/17 19:00 112 03/25/17 18:30 92 Nasal Cannula 3.00 03/25/17 18:30 92 Nasal Cannula 3.00 03/25/17 16:24 97.4 107 20 106/64 (78) 95 Nasal Cannula 2.50 03/25/17 14:25 99 Nasal Cannula 2.50 03/25/17 14:20 91 Nasal Cannula 2.50 03/25/17 13:00 103 03/25/17 12:00 98.6 93 20 174/92 (119) 96 Nasal Cannula 2.50 03/25/17 10:21 94 Nasal Cannula 2.50 03/25/17 09:00 Nasal Cannula 2.50 03/25/17 08:49 98.5 117 20 167/78 (107) 90 Nasal Cannula 2.50 03/25/17 07:00 135 03/25/17 06:41 98 Nasal Cannula 3.00 03/25/17 06:40 98 Nasal Cannula 3.00 03/25/17 06:35 92 Nasal Cannula 3.00 I & O 03/26/17 07:00 Intake Total 2235 ml Output Total 800 ml Balance 1435 ml General Appearance: No Apparent Distress, Thin HEENT: Normal ENT Inspection Neck: Normal Inspection Respiratory: No Accessory Muscle Use, No Respiratory Distress, Decreased Breath Sounds Cardiovascular: Regular Rate, Rhythm Capillary Refill: Less Than 3 Seconds Gastrointestinal: non tender, soft Extremity: Normal Capillary Refill, Normal Inspection Neurologic/Psychiatric: Alert Skin: Normal Color, Warm/Dry Lymphatic: No Adenopathy Results Lab Laboratory Tests 03/26/17 05:15 Assessment/Plan Assessment/Plan COPDAE-- pt is doing better then yesterday -SVNS -Solumedrol decrease to 40 IV Q 6 -BiPAP PRN 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
--- NOTE | 2017-03-26 07:29 | Progress Note (SOAP) ---
Subjective Time Seen by Provider: 07:15 Subjective/Events-last exam patient had treatment with albuterol and after that went into A. fib with RVR. Patient had urinary obstruction and hand daily had thousand cc in the bladder and catheter put in. Patient feeling better but did not get much sleep last night. COPD with acute exacerbation. Pseudomonas sputum colonization. Lung cancer squamous cell Objective Exam Vital Signs Date Time Temp Pulse Resp B/P (MAP) Pulse Ox O2 Delivery O2 Flow Rate FiO2 03/26/17 06:00 84 19 109/75 (86) 92 Nasal Cannula 3.00 03/26/17 05:00 88 15 120/68 (85) 92 Nasal Cannula 3.00 03/26/17 04:00 98.6 121 15 110/63 (79) 99 Nasal Cannula 3.00 03/26/17 04:00 96 Nasal Cannula 3.00 03/26/17 03:00 90 13 101/53 (69) 90 Nasal Cannula 3.00 03/26/17 02:00 141 22 87/58 (68) 96 Nasal Cannula 3.00 03/26/17 01:00 117 03/26/17 01:00 117 16 102/71 (81) 94 Nasal Cannula 3.00 03/26/17 00:45 130 15 95/66 (76) 95 Nasal Cannula 3.00 03/26/17 00:35 141 03/26/17 00:30 140 15 95 Nasal Cannula 3.00 03/26/17 00:23 133 14 112/84 (93) 96 Nasal Cannula 3.00 03/26/17 00:23 133 03/26/17 00:15 163 104/82 (89) 96 Nasal Cannula 3.00 03/26/17 00:07 184 03/26/17 00:00 98.6 165 114/83 (93) 96 Nasal Cannula 3.00 03/26/17 00:00 96 Nasal Cannula 3.00 03/25/17 23:35 163 24 135/88 (104) 96 Nasal Cannula 2.50 03/25/17 23:02 96 Nasal Cannula 3.00 03/25/17 23:02 96 Nasal Cannula 3.00 03/25/17 21:00 Nasal Cannula 2.50 03/25/17 19:08 97.6 111 20 131/68 (89) 95 Nasal Cannula 2.50 03/25/17 19:00 112 03/25/17 18:30 92 Nasal Cannula 3.00 03/25/17 18:30 92 Nasal Cannula 3.00 03/25/17 16:24 97.4 107 20 106/64 (78) 95 Nasal Cannula 2.50 03/25/17 14:25 99 Nasal Cannula 2.50 03/25/17 14:20 91 Nasal Cannula 2.50 03/25/17 13:00 103 03/25/17 12:00 98.6 93 20 174/92 (119) 96 Nasal Cannula 2.50 03/25/17 10:21 94 Nasal Cannula 2.50 03/25/17 09:00 Nasal Cannula 2.50 03/25/17 08:49 98.5 117 20 167/78 (107) 90 Nasal Cannula 2.50 I & O 03/26/17 07:00 Intake Total 2235 ml Output Total 800 ml Balance 1435 ml Capillary Refill : Less Than 3 Seconds General Appearance: No Apparent Distress, Thin HEENT: Normal ENT Inspection Neck: Full Range of Motion, Normal Inspection Respiratory: No Accessory Muscle Use, No Respiratory Distress, Decreased Breath Sounds Cardiovascular: Irregularly Irregular Gastrointestinal: non tender, soft Results Lab Laboratory Tests 03/26/17 05:15 Laboratory Tests 03/26/17 05:15: White Blood Count 8.9, Red Blood Count 3.69L, Hemoglobin 10.9L, Hematocrit 36, Mean Corpuscular Volume 97, Mean Corpuscular Hemoglobin 30, Mean Corpuscular Hemoglobin Concent 31L, Red Cell Distribution Width 13.7, Platelet Count 359, Mean Platelet Volume 9.8, Neutrophils (%) (Auto) 80H, Lymphocytes (%) (Auto) 6L , Monocytes (%) (Auto) 14H, Eosinophils (%) (Auto) 0, Basophils (%) (Auto) 0, Neutrophils # (Auto) 7.2, Lymphocytes # (Auto) 0.5L, Monocytes # (Auto) 1.2H, Eosinophils # (Auto) 0.0, Basophils # (Auto) 0.0, Sodium Level 138, Potassium Level 3.7, Chloride Level 91L, Carbon Dioxide Level 38H, Anion Gap 9, Blood Urea Nitrogen 23H, Creatinine 0.84, Estimat Glomerular Filtration Rate > 60, BUN /Creatinine Ratio 27, Glucose Level 263H, Calcium Level 8.7, Phosphorus Level 2.8, Magnesium Level 1.9, Thyroid Stimulating Hormone (TSH) 0.37 Microbiology 03/22/17 Blood Culture - Preliminary, Resulted No growth 03/22/17 Gram Stain - Final, Complete 03/22/17 Sputum Culture - Final, Complete Pseudomonas Aeruginosa Presumptive Susanne Albicans Assessment/Plan Assessment/Plan Assess & Plan/Chief Complaint ration and weak. COPD with acute exacerbation. Lung cancer. Coronary artery disease. Tachycardia. Chest pain. Weakness. Consult with long term care social worker and physical therapy. . 03/26/17. A. fib with RVR. Urinary obstruction. COPD with acute exacerbation. Lung cancer squamous cell. Coronary artery disease. Chest pain resolved. Weakness Clinical Quality Measures DVT/VTE Risk/Contraindication: Risk Factor Score Per Nursin RFS Level Per Nursing on Admit: 4+=Very High WEST MCCAULEY DO Mar 26, 2017 07:29
[2017-03-26] MEDS: DILTIAZEM DRIP IV SCH ×2 (07:55)
[2017-03-26] MEDS: [UNRECOGNIZED DRUG - OTHER] IV SCH ×2 (07:55)
[2017-03-26 08:11] LABS: BILIRUBIN,URINE NEGATIVE (NEGATIVE); KETONES,URINE NEGATIVE (NEGATIVE); LEUKOCYTE ESTERASE ,URINE NEGATIVE (NEGATIVE); NITRITE,URINE NEGATIVE (NEGATIVE); PH,URINE 7 (5-9); PROTEIN,URINE NEGATIVE (NEGATIVE); UROBILINOGEN,URINE NORMAL (NORMAL)
[2017-03-26 08:18] LABS: SQUAMOUS EPITHELIAL CELL,UR 0-2 /HPF
[2017-03-26] MEDS: meTOprolol TARTRATE 50 MG (LOPRESSOR) TAB PO SCH ×2 (08:33→20:49)
[2017-03-26] MEDS: CLOPIDOGREL 75 MG (PLAVIX) TABLET PO SCH (08:33)
[2017-03-26] MEDS: CALCIUM CARB + VIT D 600 MG (CALCARB + D) TAB PO SCH (08:33)
[2017-03-26] MEDS: lisINopril 10 MG (PRINIVIL) TAB PO SCH (08:33)
[2017-03-26] MEDS: RT-ADVAIR HFA 115/21 MCG PER PUFF IH SCH ×2 (09:26→20:49)
--- NOTE | 2017-03-26 09:47 | Progress Note-Cardiology ---
Cardiology SOAP Progress Note Subjective: Transferred to ICU during the night d/t converting to a-fib with RVR. Cardizem gtt started. Sitting up in a chair at the bedside. States she feels her breathing is better this morning. No c/o CP or palpitations. C/O heartburn after eating breakfast. Reports unable to urinate last night and was catheterized. Objective: I&O/Vital Signs Vital Sign - Last 12Hours 03/26/17 03/26/17 03/26/17 03/26/17 03:00 04:00 04:00 05:00 Temp 98.6 Pulse 90 121 88 Resp 13 15 15 B/P (MAP) 101/53 (69) 110/63 (79) 120/68 (85) Pulse Ox 90 96 99 92 O2 Delivery Nasal Cannula Nasal Cannula Nasal Cannula Nasal Cannula O2 Flow Rate 3.00 3.00 3.00 3.00 03/26/17 03/26/17 03/26/17 03/26/17 06:00 07:00 07:00 07:55 Pulse 84 88 95 94 Resp 19 13 B/P (MAP) 109/75 (86) 99/80 (86) 99/80 Pulse Ox 92 95 O2 Delivery Nasal Cannula Nasal Cannula O2 Flow Rate 3.00 3.00 03/26/17 03/26/17 03/26/17 03/26/17 08:00 08:00 08:00 09:00 Temp 97.0 Pulse 87 96 Resp 16 12 B/P (MAP) 125/77 (93) 109/75 (86) Pulse Ox 95 96 96 O2 Delivery Nasal Cannula Nasal Cannula Nasal Cannula O2 Flow Rate 3.00 2.50 3.00 03/26/17 03/26/17 03/26/17 03/26/17 09:27 10:00 11:00 12:00 Pulse 80 93 60 Resp 18 17 12 B/P (MAP) 106/71 (83) 116/70 (85) 105/60 (75) Pulse Ox 98 98 95 96 O2 Delivery Nasal Cannula Nasal Cannula Nasal Cannula Nasal Cannula O2 Flow Rate 3.00 3.00 3.00 3.00 03/26/17 03/26/17 12:00 14:23 Pulse Ox 96 96 O2 Delivery Nasal Cannula Nasal Cannula O2 Flow Rate 2.50 2.50 Intake and Output 03/26/17 00:00 Intake Total 1490 ml Balance 1490 ml Weight (Pounds): 102 Weight (Ounces): 5.0 Weight (Calculated Kilograms): [id number] Constitutional: AAO x 3, No apparent distress, well-developed, other (thin- appearing) Respiratory: other (Scattered rhonchi, fair air entry, prolonged exp phase) Cardiovascular: irregularly irregular, S1 and S2, systolic murmur (faint MONA at card base) Gastrointestional: No tender, soft, round, No guarding, No rebound, audible bowel sounds Extremities: No clubbing, No cyanosis, No significant edema Neurologic/Psychiatric: grossly intact, power is 5/5 both on sides Skin: No rash on exposed areas, No ulcerations on exposed areas Results/Procedures: Labs Laboratory Tests 03/26/17 05:15: White Blood Count 8.9, Red Blood Count 3.69L, Hemoglobin 10.9L, Hematocrit 36, Mean Corpuscular Volume 97, Mean Corpuscular Hemoglobin 30, Mean Corpuscular Hemoglobin Concent 31L, Red Cell Distribution Width 13.7, Platelet Count 359, Mean Platelet Volume 9.8, Neutrophils (%) (Auto) 80H, Lymphocytes (%) (Auto) 6L , Monocytes (%) (Auto) 14H, Eosinophils (%) (Auto) 0, Basophils (%) (Auto) 0, Neutrophils # (Auto) 7.2, Lymphocytes # (Auto) 0.5L, Monocytes # (Auto) 1.2H, Eosinophils # (Auto) 0.0, Basophils # (Auto) 0.0, Sodium Level 138, Potassium Level 3.7, Chloride Level 91L, Carbon Dioxide Level 38H, Anion Gap 9, Blood Urea Nitrogen 23H, Creatinine 0.84, Estimat Glomerular Filtration Rate > 60, BUN /Creatinine Ratio 27, Glucose Level 263H, Calcium Level 8.7, Phosphorus Level 2.8, Magnesium Level 1.9, Thyroid Stimulating Hormone (TSH) 0.37 03/26/17 08:00: Urine Color YELLOW, Urine Clarity CLEAR, Urine pH 7, Urine Specific [place] 1.010L, Urine Protein NEGATIVE, Urine Glucose (UA) 1+H, Urine Ketones NEGATIVE, Urine Nitrite NEGATIVE, Urine Bilirubin NEGATIVE, Urine Urobilinogen NORMAL, Urine Leukocyte Esterase NEGATIVE, Urine RBC (Auto) NEGATIVE, Urine RBC NONE, Urine WBC NONE, Urine Squamous Epithelial Cells 0-2, Urine Crystals NONE, Urine Bacteria NEGATIVE, Urine Casts NONE, Urine Mucus NEGATIVE, Urine Culture Indicated NO Microbiology 03/22/17 Blood Culture - Preliminary, Resulted No growth 03/22/17 Gram Stain - Final, Complete 03/22/17 Sputum Culture - Final, Complete Pseudomonas Aeruginosa Presumptive Susanne Albicans A/P: Assessment: New onset or PAF, first documented on 03/25/17 Acute exacerbation of advanced COPD - being managed by Pulm and [facility] S[facility] CAD. S/p CABG Feb [address] Guzman in [place], [place]. She had LEMUS to LAD, SVG to PDA, and sequential SVG to diagonal and OM. Last cardiac cath was on 07/12/15 and it showed multivessel CAD with patent SVG to distal RCA, patent LEMUS to distal LAD, and a sequential SVG with 50-60% mid-graft stenosis that was patent to first diag but occluded to OM. She underwent successful balloon angioplasty of the OM to which the graft was occluded. LVEF 60% on cath 07/12/15 with mild elevation of LVEDP Echocardiogram from January 03, 2015 showed LVEF 60%. Last echo of 04/19/[address] Funk showed LVEF 55-60%, mod diastolic dysfunction of LV, severe pulm htn with RVSP approx 72 mmHg Pulm htn, managed by Dr Dubois PAD. 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 Abdominal aortic aneurysm screening of February 2016 was negative for abdominal aortic aneurysm S/p radiation and chemo for right lung cancer in mid 2016, managed by Dr Contreras and Sherly H/o intermittent pneumonia Tobacco use quit in early 2012 Hypertension COPD with associated pulm hypertension Hyperlipidemia, controlled Hypothyroidism being treated with thyroid replacement therapy Carotid u/s from July 2014 showed minimal bilat carotid arterial disease without evidence of hemodynamic significance Plan: * New onset of a-fib with RVR; first diagnosed [id number] - rate improved with Cardizem gtt. Change to oral Cardizem CD * Start OAC for stroke prophylaxis. We will stop the Plavix and continue ASA since having her on all 3 agents will increase her risk of bleeding. * The episode of cp appears to have been anxiety-related (see above under Subjective section). There is no evidence of ACS. She wishes to be managed conservatively only * Dysuria is being managed by medical/urology services (Dr. Sharif consulted) * TSH 0.37 per lab of 03-26-17 * We again reviewed risk factor mod * Follow labs Physician Assessment Physician Assessment Notes that she was quite short of breath and had palpitations at time of transfer to ICU yesterday. Currently does not report any cp or palp or syncope. Has shortness of breath but this back essentially to usual baseline Cor: reg Lungs: fair air entry, prolonged exp, scattered rhonchi Abd: soft, nontender, BS positive Ext: no c/c/e A&R * As documented in our note above that I updated (italics) * Complex management due to multiple comorbidities * Deterioration in condition overnight that necessitated transfer to the ICU * We recommend the following treatment changes: d/c lisinopril and Plavix; start long-acting dilt for vent rate control and Eliquis for stroke prophylaxis * Given low body wgt (BMI approx 18) we feel it would be safer to use the lower dose of Eliquis * D/c Lovenox after starting Eliquis * I had a detailed discussion with her and explained the potential etiologies of PAF and our treatment plan and the pros and cons of above-noted meds * Monitor labs LEONA COLES Mar 26, 2017 09:47 NORMA ALVARADO MD [facility] Mar 26, 2017 14:50
[2017-03-26] MEDS: CALCIUM CARBONATE 500 MG (TUMS) TAB.CHEW PO PRN (09:57)
--- NOTE | 2017-03-26 10:02 | Physical Therapy Daily Note ---
PT Daily Note-Current Subjective Agreeable to PT. Questions how she will be able to get out of bed "with all these tubes and lines"....Reports she feels weak. Agreeable to sit up in the chair post treatment. Mental Status Patient Orientation: Person, Place, Time, Situation Transfers Functional [place] Measure 0=Not Assessed/NA 4=Minimal Assistance 1=Total Assistance 5=Supervision or Setup 2=Maximal Assistance 6=Modified [place] 3=Moderate Assistance 7=Complete IndependenceIRFPAI Quality Coding Scale 6 Independent with activity with or without an assistive device 5 Patient requires set up or clean up by helper. Patient completes activity by themselves 4 Supervision or touching assist (CGA). [place] provide cues , steadying assist 3 The helper provides less than half the effort to complete the activity 2 The helper provides more than half the effort to complete the activity 1 Dependent. The helper does all the effort to complete an activity 7 Patient refused to complete or attempt activity 9 The patient did not perform the activity before the current illness or injury 88 Not attempted due to Medical conditions or safety concerns Transfers (B, C, W/C) (FIM): 5 Supine to/from Sit: 5 Sit to/from Stand: 5 SBA with all transfers and bed mobility. Stood EOB unsupported and was able to perform hodan care with SBA.. Weight Bearing Right Lower Extremity: Right Full Weight Bearing Left Lower Extremity: Left Full Weight Bearing Gait Training Gait (FIM): 5 Distance (FIM): 3=150 ft Distance: 150 ft Gait Assistive Device: FWW slightly unsteady gait but no LOB noted; slightly SOA post ambulation but recovered quickly. Treatments Pt up in chair post treatment with needs met. Oxygen insitu. Assessment Current Status: Good Progress Tolerated well. Recommend SBA for safety as pt is anxious about walking and transferring. Reassessment complete; Pt had been on 4th floor and transferred to ICU, plan of care remains the same as do goals extended to the end of the week. Will plan to continue with skilled PT intervention. PT Short Term Goals Short Term Goals Time Frame: Mar 29, 2017 Transfers (B,C,W/C) (FIM): 7 Gait (FIM): 6 Distance (FIM): 3=150 ft Gait Level of Assist: 6 Gait Assistive Device: None, FWW PT Plan Problem List Problem List: Activity Tolerance, Functional Strength, Safety, Balance, Gait, Transfer Treatment/Plan Treatment Plan: Continue Plan of Care Treatment Plan: Education, Functional Activity Alexi, Functional Strength, Gait , Safety, Therapeutic Exercise, Transfers Treatment Duration: Mar 29, 2017 Frequency: 2 times per week Estimated Hrs Per Day: .25 hour per day Patient and/or Family Agrees t: Yes Safety Risks/Education Patient Education: Safety Issues Teaching Recipient: Patient Teaching Methods: Discussion Response to Teaching: Reinforcement Needed Discharge Recommendations Therapy D/C Recommendations: Physical Therapy Home Care Time/GCodes Time In: 850 Time Out: 914 Total Billed Treatment Time: 24 Total Billed Treatment visit GT 24 JOY FARMER PT Mar 26, 2017 10:02
[2017-03-26] MEDS ORDERED: DILTIAZEM 240 MG (CARDIZEM CD) CAP PO NR (10:15)
--- NOTE | 2017-03-26 12:34 | CONSULTATION REPORT ---
DATE OF SERVICE: 03/26/2017 ATTENDING PHYSICIAN: WEST MCCAULEY DO SUMMARY: A 72-year-old white lady admitted with exacerbation of COPD and also found to have atrial fibrillation. The patient was found to have a high residual of urine over 1000 mL and a catheter was inserted at 4:00 this morning. The patient denies any kind of voiding symptoms prior to this episode. No urinary tract infections, no incontinence, no retention. IMPRESSION: Urinary retention, neurogenic in nature. RECOMMENDATIONS: Since she has a bad COPD, we will stay away from Urecholine at this point. We will start her on Flomax 0.4 mg daily. Tomorrow morning, we will plan to take the catheter out and follow her with bladder scan with postvoid residual check catheter intermittent type if needed. Plan was fully explained to the patient. Job ID: [id number] DocumentID: [id number] Dictated Date: 03/26/2017 10:39:57 Acquisition Editor Date: 03/26/2017 12:15:09 Dictated By: LINDSEY LUDWIG MD
[2017-03-26] MEDS: ASPIRIN E.C. 81 MG (ECOTRIN) TAB PO SCH (13:01)
[2017-03-26] MEDS: FUROSEMIDE 20 MG (LASIX) TAB PO SCH (13:01)
[2017-03-26] MEDS: ALFUZOSIN HCL 10 MG TAB (UROXATRAL) PO SCH (17:11)
[2017-03-26] MEDS: ATORVASTATIN 40 MG (LIPITOR) TABLET PO SCH (20:49)
[2017-03-26] MEDS: LEVOTHYROXINE 50 MCG (LEVOTHROID) TAB PO SCH (20:49)
[2017-03-26] MEDS: APAP 300 MG/CODEINE 30 MG (TYLENOL #3) TAB PO SCH (23:00)
[2017-03-27] VITALS (13 sets, daily range): BP systolic 99–130; BP diastolic 53–82
[2017-03-27] MEDS: ENOXAPARIN 60 MG/0.6 ML (LOVENOX) SYR SC SCH (02:22)
[2017-03-27] MEDS: DILTIAZEM DRIP IV SCH ×2 (02:57)
[2017-03-27] MEDS: [UNRECOGNIZED DRUG - OTHER] IV SCH ×2 (02:57)
[2017-03-27] MEDS: RT-IPRATROPIUM (ATROVENT) 0.5MG/2.5ML AMP IH SCH ×4 (03:23→20:07)
[2017-03-27 05:26] LABS: BASOPHILS % (AUTO) 0 % (0-10); EOSINOPHILS # (AUTO) 0.3 10^3/uL (0.0-0.3); EOSINOPHILS % (AUTO) 4 % (0-10); LYMPHOCYTES # (AUTO) 0.6 X 10^3 (1.0-4.0); LYMPHOCYTES % (AUTO) 8 % (12-44); MEAN CORPUSCULAR HEMOGLOBIN 30 PG (25-34); MEAN CORPUSCULAR HGB CONC 31 G/DL (32-36); MEAN CORPUSCULAR VOLUME 97 FL (80-99); MEAN PLATELET VOLUME 9.9 FL (7.4-10.4); MONOCYTES # (AUTO) 0.8 X 10^3 (0.0-1.0); MONOCYTES % (AUTO) 11 % (0-12); NEUTROPHILS % (AUTO) 78 % (42-75); PLATELET COUNT 338 10^3/uL (130-400); RED BLOOD COUNT 3.72 10^6/uL (4.35-5.85); RED CELL DISTRIBUTION WIDTH 13.7 % (10.0-14.5); WHITE BLOOD COUNT 7.6 10^3/uL (4.3-11.0)
[2017-03-27 05:49] LABS: ANION GAP 6 MMOL/L (5-14); BLOOD UREA NITROGEN 18 MG/DL (7-18); BUN/CREATININE RATIO 23; CALCIUM 8.7 MG/DL (8.5-10.1); CARBON DIOXIDE 40 MMOL/L (21-32); CHLORIDE 93 MMOL/L (98-107); CREATININE SERUM 0.77 MG/DL (0.60-1.30); GFR ESTIMATED > 60; GLUCOSE 156 MG/DL (70-105); MAGNESIUM 1.8 MG/DL (1.8-2.4); PHOSPHORUS 3.9 MG/DL (2.3-4.7); POTASSIUM 3.8 MMOL/L (3.6-5.0); SODIUM 139 MMOL/L (135-145)
[2017-03-27] MEDS: PANTOPRAZOLE 40 MG (PROTONIX) TAB PO SCH (06:14)
--- NOTE | 2017-03-27 07:24 | Progress Note (SOAP) ---
Subjective Time Seen by Provider: 07:20 Subjective/Events-last exam patient feeling better this morning. Patient converted to sinus rhythm this morning. Patient still has the Lai catheter in. Patient feeling a little stronger. New-onset atrial fibrillation with RVR. Acute exacerbation of COPD. Urinary retention. Lung cancer Objective Exam Vital Signs Date Time Temp Pulse Resp B/P (MAP) Pulse Ox O2 Delivery O2 Flow Rate FiO2 03/27/17 06:00 86 12 122/78 (93) 99 Nasal Cannula 3.00 03/27/17 05:00 65 105/69 (81) 95 Nasal Cannula 3.00 03/27/17 04:00 66 103/61 (75) 91 Nasal Cannula 3.00 03/27/17 04:00 96 Nasal Cannula 3.00 03/27/17 03:24 91 Nasal Cannula 2.00 03/27/17 03:00 61 100/53 (69) 94 Nasal Cannula 3.00 03/27/17 02:00 58 99/59 (72) 90 Nasal Cannula 3.00 03/27/17 01:00 65 123/69 (87) 96 Nasal Cannula 3.00 03/27/17 01:00 61 03/27/17 00:16 97.4 03/27/17 00:00 96 Nasal Cannula 2.50 03/27/17 00:00 59 110/66 (81) 90 Nasal Cannula 3.00 03/26/17 23:00 75 20 124/80 (95) 96 Nasal Cannula 3.00 03/26/17 22:00 71 23 131/52 (78) 98 Nasal Cannula 3.00 03/26/17 21:20 95 Nasal Cannula 2.00 03/26/17 21:00 112 21 140/73 (95) 92 Nasal Cannula 3.00 03/26/17 20:52 95 Nasal Cannula 2.00 03/26/17 20:00 98.2 87 17 124/70 (88) 94 Nasal Cannula 3.00 03/26/17 20:00 96 Nasal Cannula 2.50 03/26/17 19:00 101 03/26/17 19:00 101 26 114/70 (85) 96 Nasal Cannula 3.00 03/26/17 18:00 92 122/62 (82) 93 Nasal Cannula 3.00 03/26/17 17:00 92 123/67 (85) 95 Nasal Cannula 3.00 03/26/17 16:12 96 Nasal Cannula 2.50 03/26/17 16:00 77 26 127/68 (87) 95 Nasal Cannula 3.00 03/26/17 15:00 82 32 112/71 (85) 95 Nasal Cannula 3.00 03/26/17 14:23 96 Nasal Cannula 2.50 03/26/17 14:00 82 20 126/65 (85) 98 Nasal Cannula 3.00 03/26/17 13:00 72 13 114/68 (83) 97 Nasal Cannula 3.00 03/26/17 13:00 72 03/26/17 12:00 96 Nasal Cannula 2.50 03/26/17 12:00 60 12 105/60 (75) 96 Nasal Cannula 3.00 03/26/17 11:00 93 17 116/70 (85) 95 Nasal Cannula 3.00 03/26/17 10:45 80 17 106/71 (83) 99 Nasal Cannula 3.00 03/26/17 10:30 80 16 84/74 (77) 98 Nasal Cannula 3.00 03/26/17 10:15 80 17 89/66 (74) 99 Nasal Cannula 3.00 03/26/17 10:00 80 18 106/71 (83) 98 Nasal Cannula 3.00 03/26/17 09:45 84 17 116/76 (89) 94 Nasal Cannula 3.00 03/26/17 09:30 104 22 109/75 (86) 94 Nasal Cannula 3.00 03/26/17 09:27 98 Nasal Cannula 3.00 03/26/17 09:15 86 16 96/70 (79) 97 Nasal Cannula 3.00 03/26/17 09:00 96 12 109/75 (86) 96 Nasal Cannula 3.00 03/26/17 08:45 90 23 125/77 (93) 98 Nasal Cannula 3.00 03/26/17 08:30 89 23 114/76 (89) 97 Nasal Cannula 3.00 03/26/17 08:15 84 17 121/76 (91) 95 Nasal Cannula 3.00 03/26/17 08:00 97.0 03/26/17 08:00 96 Nasal Cannula 2.50 03/26/17 08:00 87 16 125/77 (93) 95 Nasal Cannula 3.00 03/26/17 07:55 94 99/80 03/26/17 07:45 103 20 99/80 (86) 94 Nasal Cannula 3.00 03/26/17 07:30 97 20 115/63 (80) 93 Nasal Cannula 3.00 I & O 03/27/17 07:00 Intake Total 827.5 ml Output Total 1675 ml Balance -847.5 ml Capillary Refill : Less Than 3 Seconds General Appearance: No Apparent Distress, Thin HEENT: Normal ENT Inspection Neck: Full Range of Motion, Normal Inspection Respiratory: Chest Non Tender, Lungs Clear, No Accessory Muscle Use, No Respiratory Distress, Decreased Breath Sounds Cardiovascular: Regular Rate, Rhythm, No Murmur Gastrointestinal: non tender, soft Results Lab Laboratory Tests 03/27/17 05:15 Laboratory Tests 03/26/17 08:00: Urine Color YELLOW, Urine Clarity CLEAR, Urine pH 7, Urine Specific [place] 1.010L, Urine Protein NEGATIVE, Urine Glucose (UA) 1+H, Urine Ketones NEGATIVE, Urine Nitrite NEGATIVE, Urine Bilirubin NEGATIVE, Urine Urobilinogen NORMAL, Urine Leukocyte Esterase NEGATIVE, Urine RBC (Auto) NEGATIVE, Urine RBC NONE, Urine WBC NONE, Urine Squamous Epithelial Cells 0-2, Urine Crystals NONE, Urine Bacteria NEGATIVE, Urine Casts NONE, Urine Mucus NEGATIVE, Urine Culture Indicated NO 03/27/17 05:15: White Blood Count 7.6, Red Blood Count 3.72L, Hemoglobin 11.2L, Hematocrit 36, Mean Corpuscular Volume 97, Mean Corpuscular Hemoglobin 30, Mean Corpuscular Hemoglobin Concent 31L, Red Cell Distribution Width 13.7, Platelet Count 338, Mean Platelet Volume 9.9, Neutrophils (%) (Auto) 78H, Lymphocytes (%) (Auto) 8L , Monocytes (%) (Auto) 11, Eosinophils (%) (Auto) 4, Basophils (%) (Auto) 0, Neutrophils # (Auto) 6.0, Lymphocytes # (Auto) 0.6L, Monocytes # (Auto) 0.8, Eosinophils # (Auto) 0.3, Basophils # (Auto) 0.0, Sodium Level 139, Potassium Level 3.8, Chloride Level 93L, Carbon Dioxide Level 40H, Anion Gap 6, Blood Urea Nitrogen 18, Creatinine 0.77, Estimat Glomerular Filtration Rate > 60, BUN/ Creatinine Ratio 23, Glucose Level 156H, Calcium Level 8.7, Phosphorus Level 3.9 , Magnesium Level 1.8 Microbiology 03/22/17 Blood Culture - Preliminary, Resulted No growth 03/22/17 Gram Stain - Final, Complete 03/22/17 Sputum Culture - Final, Complete Pseudomonas Aeruginosa Presumptive Susanne Albicans Assessment/Plan Assessment/Plan Assess & Plan/Chief Complaint ration and weak. COPD with acute exacerbation. Lung cancer. Coronary artery disease. Tachycardia. Chest pain. Weakness. Consult with social work specialist and physical therapy. . 03/26/17. A. fib with RVR. Urinary obstruction. COPD with acute exacerbation. Lung cancer squamous cell. Coronary artery disease. Chest pain resolved. Weakness. . 03/27/17. A. fib with RVR. Urinary retention. COPD with acute exacerbation. Lung cancer squamous cell. Coronary artery disease. Chest pain resolved. Weakness Clinical Quality Measures DVT/VTE Risk/Contraindication: Risk Factor Score Per Nursin RFS Level Per Nursing on Admit: 4+=Very High WEST MCCAULEY DO Mar 27, 2017 07:24
--- NOTE | 2017-03-27 07:31 | Pulmonary Progress Note ---
Subjective Time Seen by Provider: 07:30 Subjective/Events-last exam Pt is doing better and off Cardizem gtt. Exam Exam Vital Signs Date Time Temp Pulse Resp B/P (MAP) Pulse Ox O2 Delivery O2 Flow Rate FiO2 03/27/17 06:00 86 12 122/78 (93) 99 Nasal Cannula 3.00 03/27/17 05:00 65 105/69 (81) 95 Nasal Cannula 3.00 03/27/17 04:00 66 103/61 (75) 91 Nasal Cannula 3.00 03/27/17 04:00 96 Nasal Cannula 3.00 03/27/17 03:24 91 Nasal Cannula 2.00 03/27/17 03:00 61 100/53 (69) 94 Nasal Cannula 3.00 03/27/17 02:00 58 99/59 (72) 90 Nasal Cannula 3.00 03/27/17 01:00 65 123/69 (87) 96 Nasal Cannula 3.00 03/27/17 01:00 61 03/27/17 00:16 97.4 03/27/17 00:00 96 Nasal Cannula 2.50 03/27/17 00:00 59 110/66 (81) 90 Nasal Cannula 3.00 03/26/17 23:00 75 20 124/80 (95) 96 Nasal Cannula 3.00 03/26/17 22:00 71 23 131/52 (78) 98 Nasal Cannula 3.00 03/26/17 21:20 95 Nasal Cannula 2.00 03/26/17 21:00 112 21 140/73 (95) 92 Nasal Cannula 3.00 03/26/17 20:52 95 Nasal Cannula 2.00 03/26/17 20:00 98.2 87 17 124/70 (88) 94 Nasal Cannula 3.00 03/26/17 20:00 96 Nasal Cannula 2.50 03/26/17 19:00 101 03/26/17 19:00 101 26 114/70 (85) 96 Nasal Cannula 3.00 03/26/17 18:00 92 122/62 (82) 93 Nasal Cannula 3.00 03/26/17 17:00 92 123/67 (85) 95 Nasal Cannula 3.00 03/26/17 16:12 96 Nasal Cannula 2.50 03/26/17 16:00 77 26 127/68 (87) 95 Nasal Cannula 3.00 03/26/17 15:00 82 32 112/71 (85) 95 Nasal Cannula 3.00 03/26/17 14:23 96 Nasal Cannula 2.50 03/26/17 14:00 82 20 126/65 (85) 98 Nasal Cannula 3.00 03/26/17 13:00 72 13 114/68 (83) 97 Nasal Cannula 3.00 03/26/17 13:00 72 03/26/17 12:00 96 Nasal Cannula 2.50 03/26/17 12:00 60 12 105/60 (75) 96 Nasal Cannula 3.00 03/26/17 11:00 93 17 116/70 (85) 95 Nasal Cannula 3.00 03/26/17 10:45 80 17 106/71 (83) 99 Nasal Cannula 3.00 03/26/17 10:30 80 16 84/74 (77) 98 Nasal Cannula 3.00 03/26/17 10:15 80 17 89/66 (74) 99 Nasal Cannula 3.00 03/26/17 10:00 80 18 106/71 (83) 98 Nasal Cannula 3.00 03/26/17 09:45 84 17 116/76 (89) 94 Nasal Cannula 3.00 03/26/17 09:30 104 22 109/75 (86) 94 Nasal Cannula 3.00 03/26/17 09:27 98 Nasal Cannula 3.00 03/26/17 09:15 86 16 96/70 (79) 97 Nasal Cannula 3.00 03/26/17 09:00 96 12 109/75 (86) 96 Nasal Cannula 3.00 03/26/17 08:45 90 23 125/77 (93) 98 Nasal Cannula 3.00 03/26/17 08:30 89 23 114/76 (89) 97 Nasal Cannula 3.00 03/26/17 08:15 84 17 121/76 (91) 95 Nasal Cannula 3.00 03/26/17 08:00 97.0 03/26/17 08:00 96 Nasal Cannula 2.50 03/26/17 08:00 87 16 125/77 (93) 95 Nasal Cannula 3.00 03/26/17 07:55 94 99/80 03/26/17 07:45 103 20 99/80 (86) 94 Nasal Cannula 3.00 03/26/17 07:30 97 20 115/63 (80) 93 Nasal Cannula 3.00 I & O 03/27/17 07:00 Intake Total 827.5 ml Output Total 1675 ml Balance -847.5 ml General Appearance: No Apparent Distress, Thin HEENT: Normal ENT Inspection Neck: Full Range of Motion, Normal Inspection Respiratory: Chest Non Tender, Lungs Clear, No Accessory Muscle Use, No Respiratory Distress, Decreased Breath Sounds Cardiovascular: Regular Rate, Rhythm, No Murmur Capillary Refill: Less Than 3 Seconds Gastrointestinal: non tender, soft Extremity: Normal Capillary Refill, Normal Inspection Neurologic/Psychiatric: Alert Skin: Normal Color, Warm/Dry Lymphatic: No Adenopathy Results Lab Laboratory Tests 03/26/17 05:15 03/27/17 05:15 Assessment/Plan Assessment/Plan COPDAE-- pt is doing better then yesterday -SVNS -Off abx and steroids -BiPAP PRN 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 232 Clinical Quality Measures DVT/VTE Risk/Contraindication: Risk Factor Score Per Nursin RFS Level Per Nursing on Admit: 4+=Very High ALTAGRACIA WALLACE DO Mar 27, 2017 07:31
[2017-03-27] MEDS: DILTIAZEM 240 MG (CARDIZEM CD) CAP PO SCH (08:05)
[2017-03-27] MEDS: CLOPIDOGREL 75 MG (PLAVIX) TABLET PO SCH (08:05)
[2017-03-27] MEDS: CALCIUM CARB + VIT D 600 MG (CALCARB + D) TAB PO SCH (08:05)
[2017-03-27] MEDS: meTOprolol TARTRATE 50 MG (LOPRESSOR) TAB PO SCH ×2 (08:05→21:04)
--- NOTE | 2017-03-27 08:45 | Progress Note-Cardiology ---
Cardiology SOAP Progress Note Subjective: Sitting up in a w/c at the bedside preparing to transfer to the medical floor. States she feels much better this morning. Feels her breathing is better than it has been in the last 3 months. No c/o CP, palpitations, syncope or near syncope. Objective: I&O/Vital Signs Vital Sign - Last 12Hours 03/26/17 03/26/17 03/26/17 03/26/17 21:00 21:20 22:00 23:00 Pulse 112 71 75 Resp 21 23 20 B/P (MAP) 140/73 (95) 131/52 (78) 124/80 (95) Pulse Ox 92 95 98 96 O2 Delivery Nasal Cannula Nasal Cannula Nasal Cannula Nasal Cannula O2 Flow Rate 3.00 2.00 3.00 3.00 03/27/17 03/27/17 03/27/17 03/27/17 00:00 00:00 00:16 01:00 Temp 97.4 Pulse 59 61 B/P (MAP) 110/66 (81) Pulse Ox 90 96 O2 Delivery Nasal Cannula Nasal Cannula O2 Flow Rate 3.00 2.50 03/27/17 03/27/17 03/27/17 03/27/17 01:00 02:00 03:00 03:24 Pulse 65 58 61 B/P (MAP) 123/69 (87) 99/59 (72) 100/53 (69) Pulse Ox 96 90 94 91 O2 Delivery Nasal Cannula Nasal Cannula Nasal Cannula Nasal Cannula O2 Flow Rate 3.00 3.00 3.00 2.00 03/27/17 03/27/17 03/27/17 03/27/17 04:00 04:00 05:00 06:00 Pulse 66 65 86 Resp 12 B/P (MAP) 103/61 (75) 105/69 (81) 122/78 (93) Pulse Ox 96 91 95 99 O2 Delivery Nasal Cannula Nasal Cannula Nasal Cannula Nasal Cannula O2 Flow Rate 3.00 3.00 3.00 3.00 03/27/17 03/27/17 03/27/17 06:59 07:00 08:00 Pulse 104 93 94 Resp 10 17 B/P (MAP) 126/70 (88) 114/82 (93) Pulse Ox 96 O2 Delivery Nasal Cannula Nasal Cannula O2 Flow Rate 3.00 3.00 Intake and Output 03/27/17 00:00 Intake Total 570 ml Output Total 1050 ml Balance -480 ml Weight (Pounds): 108 Weight (Ounces): 7.0 Weight (Calculated Kilograms): 49.956413 Constitutional: AAO x 3, No apparent distress, well-developed, other (thin- appearing) Respiratory: other (Scattered rhonchi, fair air entry, prolonged exp phase) Cardiovascular: regular rate-rhythm, S1 and S2, systolic murmur (faint MONA at card base) Gastrointestional: No tender, soft, round, No guarding, No rebound, audible bowel sounds Extremities: No clubbing, No cyanosis, No significant edema Neurologic/Psychiatric: grossly intact, power is 5/5 both on sides Skin: No rash on exposed areas, No ulcerations on exposed areas Results/Procedures: Labs Laboratory Tests 03/27/17 05:15: White Blood Count 7.6, Red Blood Count 3.72L, Hemoglobin 11.2L, Hematocrit 36, Mean Corpuscular Volume 97, Mean Corpuscular Hemoglobin 30, Mean Corpuscular Hemoglobin Concent 31L, Red Cell Distribution Width 13.7, Platelet Count 338, Mean Platelet Volume 9.9, Neutrophils (%) (Auto) 78H, Lymphocytes (%) (Auto) 8L , Monocytes (%) (Auto) 11, Eosinophils (%) (Auto) 4, Basophils (%) (Auto) 0, Neutrophils # (Auto) 6.0, Lymphocytes # (Auto) 0.6L, Monocytes # (Auto) 0.8, Eosinophils # (Auto) 0.3, Basophils # (Auto) 0.0, Sodium Level 139, Potassium Level 3.8, Chloride Level 93L, Carbon Dioxide Level 40H, Anion Gap 6, Blood Urea Nitrogen 18, Creatinine 0.77, Estimat Glomerular Filtration Rate > 60, BUN/ Creatinine Ratio 23, Glucose Level 156H, Calcium Level 8.7, Phosphorus Level 3.9 , Magnesium Level 1.8 Microbiology 03/22/17 Blood Culture - Preliminary, Resulted No growth 03/22/17 Gram Stain - Final, Complete 03/22/17 Sputum Culture - Final, Complete Pseudomonas Aeruginosa Presumptive Susanne Albicans Laboratory Tests 03/26/17 05:15 03/27/17 05:15 A/P: Assessment: New onset or PAF, first documented on 03/25/17 - has converted to SR Acute exacerbation of advanced COPD - being managed by Pulm and [facility] Svces CAD. S/p CABG Feb [address] Guzman in [place], [place]. She had LEMUS to LAD, SVG to PDA, and sequential SVG to diagonal and OM. Last cardiac cath was on 07/12/15 and it showed multivessel CAD with patent SVG to distal RCA, patent LEMUS to distal LAD, and a sequential SVG with 50-60% mid-graft stenosis that was patent to first diag but occluded to OM. She underwent successful balloon angioplasty of the OM to which the graft was occluded. LVEF 60% on cath 07/12/15 with mild elevation of LVEDP Echocardiogram from January 03, 2015 showed LVEF 60%. Last echo of 04/19/[address] Funk showed LVEF 55-60%, mod diastolic dysfunction of LV, severe pulm htn with RVSP approx 72 mmHg Pulm htn, managed by Dr Dubois PAD. 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 Abdominal aortic aneurysm screening of February 2016 was negative for abdominal aortic aneurysm S/p radiation and chemo for right lung cancer in 2016, managed by Dr Contreras and Sherly H/o intermittent pneumonia Tobacco use quit in early 2012 Hypertension COPD with associated pulm hypertension Hyperlipidemia, controlled Hypothyroidism being treated with thyroid replacement therapy Carotid u/s from July 2014 showed minimal bilat carotid arterial disease without evidence of hemodynamic significance Plan: * New onset of a-fib with RVR; first diagnosed [id number] - converted to SR with a controlled rate * Continue OAC for stroke prophylaxis. We have stopped the Plavix and are continuing ASA for her known CAD. Having her on all 3 agents will increase her risk of bleeding. * D/t weight of less than 80 kg we will initiate low dose Eliquis of 2.5mg BID * Dysuria is being managed by medical/urology services (Dr. Sharif consulted) * TSH 0.37 per lab of 03-26-17 * We again reviewed risk factor mod * Follow labs Physician Assessment Physician Assessment No cp or palp or syncope. Shortness of breath now at usual baseline Lungs: diminished air entry over all lung hager Cor: reg Ext: no c/c/e A&R * As documented in our note above that I updated (italics) and as noted below * Now on Eliquis. D/c Plavix. D/c enoxaparin. Continue low dose aspirin * Monitor labs * I spoke with her in detail and explained the med changes and their pros and cons (long-acting dilt and apixaban) * Advised complete avoidance of tobacco use LEONA COLES [facility] Mar 27, 2017 08:45 NORMA ALVARADO MD [facility] Mar 27, 2017 09:04
[2017-03-27] MEDS: RT-ADVAIR HFA 115/21 MCG PER PUFF IH SCH ×2 (09:50→20:07)
[2017-03-27] MEDS: APIXABAN 2.5 MG (ELIQUIS) TABLET PO SCH ×2 (10:15→21:04)
--- NOTE | 2017-03-27 11:13 | Physical Therapy Daily Note ---
PT Daily Note-Current Subjective Pt had just finished with her shower and was about to start RT upon arrival. Pt agrees to PT after RT. Pain Numeric Pain Scale: 0-No Pain Location: No Pain Reported Mental Status Patient Orientation: Person, Place, Time, Situation Attachments: Oxygen (3L) Transfers Functional [place] Measure 0=Not Assessed/NA 4=Minimal Assistance 1=Total Assistance 5=Supervision or Setup 2=Maximal Assistance 6=Modified [place] 3=Moderate Assistance 7=Complete IndependenceIRFPAI Quality Coding Scale 6 Independent with activity with or without an assistive device 5 Patient requires set up or clean up by helper. Patient completes activity by themselves 4 Supervision or touching assist (CGA). [place] provide cues , steadying assist 3 The helper provides less than half the effort to complete the activity 2 The helper provides more than half the effort to complete the activity 1 Dependent. The helper does all the effort to complete an activity 7 Patient refused to complete or attempt activity 9 The patient did not perform the activity before the current illness or injury 88 Not attempted due to Medical conditions or safety concerns Scootin Sit to/from Stand: 5 Weight Bearing Right Lower Extremity: Right Full Weight Bearing Left Lower Extremity: Left Full Weight Bearing Gait Training Distance (FIM): 3=150 ft Distance: 250' Gait Level of Assist: 5 Gait Persons Needed: 1 Gait Assistive Device: FWW Pt has slow but steady gait, no LOB. Pt report fatigue at end of walk. Treatments Pt needs to use restroom before walk. Pt transfers to standing from recliner at SBA w/o AD. Pt ambulates to restroom then needs to rest in recliner before walk. Pt transfers to standing again at A. Pt ambulates in hallway using FWW at [facility]. Pt returns to recliner to rest after walk at end of tx. Pt has all needs met. Assessment Current Status: Good Progress Pt is able to walk farther than previous tx even after taking a shower. Pt still fatigues easy and needs rest breaks. PT Short Term Goals Short Term Goals Time Frame: Mar 29, 2017 Transfers (B,C,W/C) (FIM): 7 Gait (FIM): 6 Distance (FIM): 3=150 ft Gait Level of Assist: 6 Gait Assistive Device: None, FWW PT Plan Problem List Problem List: Activity Tolerance, Functional Strength, Safety, Balance, Gait Treatment/Plan Treatment Plan: Continue Plan of Care Treatment Plan: Education, Functional Activity Alexi, Functional Strength, Gait , Safety, Therapeutic Exercise, Transfers Treatment Duration: Mar 29, 2017 Frequency: 2 times per week Estimated Hrs Per Day: .25 hour per day Patient and/or Family Agrees t: Yes Safety Risks/Education Patient Education: Gait Training, Correct Positioning, Safety Issues Teaching Recipient: Patient Teaching Methods: Discussion Response to Teaching: Verbalize Understanding Time/GCodes Time In: 950 Time Out: 1015 Total Billed Treatment Time: 25 Total Billed Treatment 1, GT (15m) & FA (10m) KENAN [employer] Mar 27, 2017 11:13
[2017-03-27] MEDS: ASPIRIN E.C. 81 MG (ECOTRIN) TAB PO SCH (12:36)
[2017-03-27] MEDS: FUROSEMIDE 20 MG (LASIX) TAB PO SCH (12:36)
[2017-03-27] MEDS: HYDROmorphone (DILAUDID) 2 MG TAB PO PRN ×2 (15:43→15:48)
[2017-03-27] MEDS: ALFUZOSIN HCL 10 MG TAB (UROXATRAL) PO SCH (17:02)
[2017-03-27] MEDS: ATORVASTATIN 40 MG (LIPITOR) TABLET PO SCH (21:04)
[2017-03-27] MEDS: LEVOTHYROXINE 50 MCG (LEVOTHROID) TAB PO SCH (21:04)
[2017-03-27] MEDS: APAP 300 MG/CODEINE 30 MG (TYLENOL #3) TAB PO SCH (23:22)
[2017-03-28 00:30] VITALS: BP 128/70
[2017-03-28] MEDS: RT-IPRATROPIUM (ATROVENT) 0.5MG/2.5ML AMP IH SCH ×2 (03:07→08:10)
[2017-03-28 04:58] VITALS: BP 148/74
[2017-03-28] MEDS: PANTOPRAZOLE 40 MG (PROTONIX) TAB PO SCH (06:00)
[2017-03-28 06:09] LABS: BASOPHILS % (AUTO) 0 % (0-10); EOSINOPHILS # (AUTO) 0.3 10^3/uL (0.0-0.3); EOSINOPHILS % (AUTO) 4 % (0-10); LYMPHOCYTES # (AUTO) 0.5 X 10^3 (1.0-4.0); LYMPHOCYTES % (AUTO) 6 % (12-44); MEAN CORPUSCULAR HEMOGLOBIN 30 PG (25-34); MEAN CORPUSCULAR HGB CONC 32 G/DL (32-36); MEAN CORPUSCULAR VOLUME 96 FL (80-99); MEAN PLATELET VOLUME 9.9 FL (7.4-10.4); MONOCYTES # (AUTO) 0.7 X 10^3 (0.0-1.0); MONOCYTES % (AUTO) 10 % (0-12); NEUTROPHILS # (AUTO) 5.9 X 10^3 (1.8-7.8); NEUTROPHILS % (AUTO) 80 % (42-75); PLATELET COUNT 338 10^3/uL (130-400); RED CELL DISTRIBUTION WIDTH 13.4 % (10.0-14.5); WHITE BLOOD COUNT 7.5 10^3/uL (4.3-11.0)
[2017-03-28 06:33] LABS: BAND NEUTROPHILS 0 %; BASOPHILS % (MANUAL) 0 %; EOSINOPHILS % (MANUAL) 6 %; LYMPHOCYTES % (MANUAL) 5 %; NEUTROPHILS % (MANUAL) 84 %
[2017-03-28 06:34] LABS: HYPOCHROMASIA SLIGHT; ROULEAUX SLIGHT
[2017-03-28 06:38] LABS: ANION GAP 6 MMOL/L (5-14); BLOOD UREA NITROGEN 18 MG/DL (7-18); BUN/CREATININE RATIO 21; CARBON DIOXIDE 41 MMOL/L (21-32); CHLORIDE 90 MMOL/L (98-107); CREATININE SERUM 0.85 MG/DL (0.60-1.30); GFR ESTIMATED > 60; GLUCOSE 173 MG/DL (70-105); MAGNESIUM 1.7 MG/DL (1.8-2.4); PHOSPHORUS 3.9 MG/DL (2.3-4.7); POTASSIUM 4.1 MMOL/L (3.6-5.0); SODIUM 137 MMOL/L (135-145)
--- NOTE | 2017-03-28 07:48 | Progress Note (SOAP) ---
Subjective Time Seen by Provider: 07:45 Subjective/Events-last exam PATIENT FEELING BETTER AND DOING BETTER AND WANTS TO GO HOME. COPD with acute exacerbation area Pseudomonas in sputum colonization. New A. fib with AVR. Now in sinus rhythm. Lung cancer squamous cell. Patient does not have Lai catheter in. Patient is voiding. Objective Exam Vital Signs Date Time Temp Pulse Resp B/P (MAP) Pulse Ox O2 Delivery O2 Flow Rate FiO2 03/28/17 04:58 97.3 92 18 148/74 (98) 93 Nasal Cannula 2.50 03/28/17 03:07 94 Nasal Cannula 2.50 03/28/17 01:00 76 03/28/17 00:30 96.7 79 20 128/70 (89) 96 Nasal Cannula 2.50 03/27/17 20:15 96 Nasal Cannula 2.50 03/27/17 20:12 99 Nasal Cannula 2.50 03/27/17 20:07 93 Nasal Cannula 2.50 03/27/17 19:24 97.3 101 18 99/57 (71) 98 Nasal Cannula 3.00 03/27/17 19:00 119 03/27/17 16:20 98.9 03/27/17 16:19 98.9 83 18 130/62 (84) 98 Nasal Cannula 3.00 03/27/17 15:48 96.2 03/27/17 12:00 96.2 89 20 104/69 (81) 96 Nasal Cannula 3.00 03/27/17 09:48 96 Nasal Cannula 3.00 03/27/17 08:50 96 Nasal Cannula 2.50 03/27/17 08:45 97.3 99 20 99/57 (71) 95 Nasal Cannula 3.00 03/27/17 08:00 94 17 114/82 (93) Nasal Cannula 3.00 03/27/17 08:00 96 Nasal Cannula 2.50 I & O 03/28/17 07:00 Intake Total 2740 ml Output Total 4100 ml Balance -1360 ml Capillary Refill : Less Than 3 Seconds General Appearance: No Apparent Distress, Thin HEENT: Normal ENT Inspection Neck: Full Range of Motion, Normal Inspection Respiratory: Chest Non Tender, No Accessory Muscle Use, No Respiratory Distress , Decreased Breath Sounds Cardiovascular: Regular Rate, Rhythm, No Murmur Gastrointestinal: non tender, soft Results Lab Laboratory Tests 03/28/17 05:41 Laboratory Tests 03/28/17 05:41: White Blood Count 7.5, Red Blood Count 3.70L, Hemoglobin 11.2L, Hematocrit 36, Mean Corpuscular Volume 96, Mean Corpuscular Hemoglobin 30, Mean Corpuscular Hemoglobin Concent 32, Red Cell Distribution Width 13.4, Platelet Count 338, Mean Platelet Volume 9.9, Neutrophils (%) (Auto) 80H, Lymphocytes (%) (Auto) 6L , Monocytes (%) (Auto) 10, Eosinophils (%) (Auto) 4, Basophils (%) (Auto) 0, Neutrophils # (Auto) 5.9, Lymphocytes # (Auto) 0.5L, Monocytes # (Auto) 0.7, Eosinophils # (Auto) 0.3, Basophils # (Auto) 0.0, Neutrophils % (Manual) 84, Lymphocytes % (Manual) 5, Monocytes % (Manual) 3, Eosinophils % (Manual) 6, Basophils % (Manual) 0, Band Neutrophils 0, Hypochromasia SLIGHT, Elliptocytes SLIGHT, Rouleau SLIGHT, Sodium Level 137, Potassium Level 4.1, Chloride Level 90L, Carbon Dioxide Level 41H, Anion Gap 6, Blood Urea Nitrogen 18, Creatinine 0.85, Estimat Glomerular Filtration Rate > 60, BUN/Creatinine Ratio 21, Glucose Level 173H, Calcium Level 9.0, Phosphorus Level 3.9, Magnesium Level 1.7L Microbiology 03/22/17 Blood Culture - Preliminary, Resulted No growth 03/22/17 Gram Stain - Final, Complete 03/22/17 Sputum Culture - Final, Complete Pseudomonas Aeruginosa Presumptive Susanne Albicans Assessment/Plan Assessment/Plan Assess & Plan/Chief Complaint ration and weak. COPD with acute exacerbation. Lung cancer. Coronary artery disease. Tachycardia. Chest pain. Weakness. Consult with social organization professor and physical therapy. . 03/26/17. A. fib with RVR. Urinary obstruction. COPD with acute exacerbation. Lung cancer squamous cell. Coronary artery disease. Chest pain resolved. Weakness. . 03/27/17. A. fib with RVR. Urinary retention. COPD with acute exacerbation. Lung cancer squamous cell. Coronary artery disease. Chest pain resolved. Weakness. . 03/28/17. COPD with acute exacerbation resolved. Lung cancer squamous cell. Coronary artery disease. New-onset A. fib with RVR. Resolved. Now in sinus rhythm. Urinary retention resolved. Patient does not have Lai catheter in Chest pain resolved. Hypomagnesemia Clinical Quality Measures DVT/VTE Risk/Contraindication: Risk Factor Score Per Nursin RFS Level Per Nursing on Admit: 4+=Very High WEST MCCAULEY DO Mar 28, 2017 07:47
[2017-03-28 08:00] VITALS: BP 109/59
[2017-03-28] MEDS ORDERED: MAGNESIUM 1 GM/100 ML IVPB 100 ML IV NR (08:05)
[2017-03-28] MEDS: RT-ADVAIR HFA 115/21 MCG PER PUFF IH SCH (08:10)
[2017-03-28] MEDS: meTOprolol TARTRATE 50 MG (LOPRESSOR) TAB PO SCH (08:40)
[2017-03-28] MEDS: CALCIUM CARB + VIT D 600 MG (CALCARB + D) TAB PO SCH (08:40)
[2017-03-28] MEDS: APIXABAN 2.5 MG (ELIQUIS) TABLET PO SCH (08:41)
[2017-03-28] MEDS: DILTIAZEM 240 MG (CARDIZEM CD) CAP PO SCH (08:41)
[2017-03-28] MEDS ORDERED: APIX2.5T PO (09:19)
[2017-03-28] MEDS ORDERED: DILT240C63 PO (09:19)
--- NOTE | 2017-03-28 09:57 | Progress Note-Cardiology ---
Cardiology SOAP Progress Note Subjective: Sitting up in chair at the bedside. States she feels well and wishes to go home. No c/o CP, palpitations, syncope or near syncope. Objective: I&O/Vital Signs Vital Sign - Last 12Hours 03/28/17 03/28/17 03/28/17 03/28/17 00:30 01:00 03:07 04:58 Temp 96.7 97.3 Pulse 79 76 92 Resp 20 18 B/P (MAP) 128/70 (89) 148/74 (98) Pulse Ox 96 94 93 O2 Delivery Nasal Cannula Nasal Cannula Nasal Cannula O2 Flow Rate 2.50 2.50 2.50 03/28/17 03/28/17 03/28/17 03/28/17 07:00 08:00 08:12 08:15 Temp 97.6 Pulse 106 97 Resp 18 B/P (MAP) 109/59 (76) Pulse Ox 95 96 O2 Delivery Nasal Cannula Nasal Cannula Nasal Cannula O2 Flow Rate 3.00 2.50 2.50 Intake and Output 03/28/17 00:00 Intake Total 2140 ml Output Total 2550 ml Balance -410 ml Weight (Pounds): 111 Weight (Ounces): 1.6 Weight (Calculated Kilograms): 50.044025 Constitutional: AAO x 3, No apparent distress, well-developed, other (thin- appearing) Respiratory: other (Scattered exp wheezes; prolonged exp phase) Cardiovascular: regular rate-rhythm, S1 and S2, systolic murmur (faint MONA at card base) Gastrointestional: No tender, soft, round, No guarding, No rebound, audible bowel sounds Extremities: No clubbing, No cyanosis, No significant edema Neurologic/Psychiatric: grossly intact, power is 5/5 both on sides Skin: No rash on exposed areas, No ulcerations on exposed areas Results/Procedures: Labs Laboratory Tests 03/28/17 05:41: White Blood Count 7.5, Red Blood Count 3.70L, Hemoglobin 11.2L, Hematocrit 36, Mean Corpuscular Volume 96, Mean Corpuscular Hemoglobin 30, Mean Corpuscular Hemoglobin Concent 32, Red Cell Distribution Width 13.4, Platelet Count 338, Mean Platelet Volume 9.9, Neutrophils (%) (Auto) 80H, Lymphocytes (%) (Auto) 6L , Monocytes (%) (Auto) 10, Eosinophils (%) (Auto) 4, Basophils (%) (Auto) 0, Neutrophils # (Auto) 5.9, Lymphocytes # (Auto) 0.5L, Monocytes # (Auto) 0.7, Eosinophils # (Auto) 0.3, Basophils # (Auto) 0.0, Neutrophils % (Manual) 84, Lymphocytes % (Manual) 5, Monocytes % (Manual) 3, Eosinophils % (Manual) 6, Basophils % (Manual) 0, Band Neutrophils 0, Hypochromasia SLIGHT, Elliptocytes SLIGHT, Rouleau SLIGHT, Sodium Level 137, Potassium Level 4.1, Chloride Level 90L, Carbon Dioxide Level 41H, Anion Gap 6, Blood Urea Nitrogen 18, Creatinine 0.85, Estimat Glomerular Filtration Rate > 60, BUN/Creatinine Ratio 21, Glucose Level 173H, Calcium Level 9.0, Phosphorus Level 3.9, Magnesium Level 1.7L Microbiology 03/22/17 Blood Culture - Preliminary, Resulted No growth 03/22/17 Gram Stain - Final, Complete 03/22/17 Sputum Culture - Final, Complete Pseudomonas Aeruginosa Presumptive Susanne Albicans A/P: Assessment: New onset or PAF, first documented on 03/25/17 - has converted to SR Acute exacerbation of advanced COPD - being managed by Pulm and [facility] Svces CAD. S/p CABG Feb [address] Guzman in [place], [place]. She had LEMUS to LAD, SVG to PDA, and sequential SVG to diagonal and OM. Last cardiac cath was on 07/12/15 and it showed multivessel CAD with patent SVG to distal RCA, patent LEMUS to distal LAD, and a sequential SVG with 50-60% mid-graft stenosis that was patent to first diag but occluded to OM. She underwent successful balloon angioplasty of the OM to which the graft was occluded. LVEF 60% on cath 07/12/15 with mild elevation of LVEDP Echocardiogram from January 03, 2015 showed LVEF 60%. Last echo of 04/19/[address] Funk showed LVEF 55-60%, mod diastolic dysfunction of LV, severe pulm htn with RVSP approx 72 mmHg Pulm htn, managed by Dr Sherly ÁLVAREZ. 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 Abdominal aortic aneurysm screening of February 2016 was negative for abdominal aortic aneurysm S/p radiation and chemo for right lung cancer in mid 2016, managed by Dr Contreras and Sherly H/o intermittent pneumonia Tobacco use quit in early 2012 Hypertension COPD with associated pulm hypertension Hyperlipidemia, controlled Hypothyroidism being treated with thyroid replacement therapy Carotid u/s from July 2014 showed minimal bilat carotid arterial disease without evidence of hemodynamic significance Plan: * New onset of a-fib with RVR; first diagnosed [id number] - converted to SR with a controlled rate * Continue OAC for stroke prophylaxis. We have stopped the Plavix and are continuing ASA for her known CAD. Having her on all 3 agents will increase her risk of bleeding. * D/t weight of less than 80 kg we will initiate low dose Eliquis of 2.5mg BID * TSH 0.37 per lab of 03-26-17 * We again reviewed risk factor mod * OK to discharge home today * Out pt f/u next week Physician Assessment Physician Assessment No cp or palp or syncope. Shortness of breath now at usual baseline. Wishes to go home Lungs: diminished air entry over all lung hager Cor: reg Ext: no c/c/e A&R * As documented in our note above that I updated (italics) and as noted below * Now on Eliquis. Continue low dose aspirin * I spoke with her in detail and explained the med changes and their pros and cons (long-acting dilt and apixaban) * Advised complete avoidance of tobacco use * Advised outpatient f/u LEONA COLES [employer] Mar 28, 2017 09:57 NORMA ALVARADO MD [facility] Mar 28, 2017 11:23
--- NOTE | 2017-03-28 10:49 | Progress Note-Urology ---
Progress Note-Urology Progress Notes/Assess & Plan Progress/Assessment & Plan VOIDING ON OWN WITH SOME PVR. PLAN PER ORDERS Final Diagnosis URINE RETENTION LINDSEY LUDWIG MD Mar 28, 2017 10:49 am
[2017-03-28] MEDS: HYDROmorphone (DILAUDID) 2 MG TAB PO PRN ×2 (11:11→11:12)
[2017-03-28 12:00] VITALS: BP 129/59
--- NOTE | 2017-03-29 06:54 | Discharge Summary ---
Diagnosis/Chief Complaint Date of Admission Mar 22, 2017 at 07:53 Date of Discharge Mar 28, 2017 at 12:20 Discharge Date: Mar 28, 2017 Discharge Time: 06:35 Admission Diagnosis Admission Diagnosis COPD with acute exacerbation. CAD. Lung cancer. Dyspnea. Discharge Diagnosis COPD with acute exacerbation. Dyspnea. Acute diastolic congestive heart failure. Lung cancer with squamous cell. Chest pain. Acute onset of A. fib with RVR. Coronary artery disease. Urinary retention. 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 Previous history of tobaccoism. Hyperlipidemia. Hypothyroid. Hyperlipidemia. Hypertensive heart disease Reason Hospital Visit short of breath for the last 48 hours and getting worse. Patient had trouble walking due to shortness of breath. Patient brought out to the emergency room by ambulance. Patient has history of lung cancer and CAD. Patient had lung surgery previously. Patient has COPD with acute exacerbation and admitted Discharge Summary Consultations cardiology. Pulmonology. Discharge Physical Examination Allergies: Coded Allergies: Penicillins (Verified Allergy, Severe, ANAPHYLAXIS, 09/04/16) hydrochlorothiazide (Verified Allergy, Intermediate, RASH, 01/29/17) penicillin G (Verified Allergy, Unknown, 09/04/16) Vitals & I&Os Vital Signs Date Time Temp Pulse Resp B/P (MAP) Pulse Ox O2 Delivery O2 Flow Rate FiO2 03/28/17 12:20 03/28/17 12:00 96.8 85 18 95 Nasal Cannula 3.00 Hospital Course patient in hospital went into A. fib with RVR and admitted to ICU. Patient discharge feeling better with A. fib Labs (last 24 hrs) Laboratory Tests 03/22/17 07:30: White Blood Count 6.1, Red Blood Count 3.31L, Hemoglobin 10.1L, Hematocrit 35, Mean Corpuscular Volume 106H, Mean Corpuscular Hemoglobin 31, Mean Corpuscular Hemoglobin Concent 29L, Red Cell Distribution Width 12.9, Platelet Count 246, Mean Platelet Volume 10.6H, Neutrophils (%) (Auto) 77H, Lymphocytes (%) (Auto) 8L, Monocytes (%) (Auto) 13H, Eosinophils (%) (Auto) 2, Basophils (%) (Auto) 0, Neutrophils # (Auto) 4.7, Lymphocytes # (Auto) 0.5L, Monocytes # (Auto) 0.8, Eosinophils # (Auto) 0.1, Basophils # (Auto) 0.0, D-Dimer 0.41, Sodium Level 140 , Potassium Level 4.8, Chloride Level 87L, Carbon Dioxide Level 45H, Anion Gap 8 , Blood Urea Nitrogen 12, Creatinine 0.70, Estimat Glomerular Filtration Rate > 60, BUN/Creatinine Ratio 17, Glucose Level 168H, Lactic Acid Level 0.61, Calcium Level 9.9, Total Bilirubin 0.3, Aspartate Amino Transf (AST/SGOT) 26, Alanine Aminotransferase (ALT/SGPT) 26, Alkaline Phosphatase 77, B-Type Natriuretic Peptide 639.2H, Total Protein 6.8, Albumin 3.7 03/22/17 09:25: Blood Gas Puncture Site R BRACH, Blood Gas Patient Temperature 99.2, Arterial Blood pH 7.32*L, Arterial Blood Partial Pressure CO2 95*H, Arterial Blood Partial Pressure O2 26*L, Arterial Blood HCO3 48*H, Arterial Blood Total CO2 50.5H, Arterial Blood Oxygen Saturation 39L, Arterial Blood Base Excess 20.7H, Bruce Test YES-POS, Blood Gas Ventilator Setting NO, Blood Gas Inspired Oxygen 40% 03/22/17 11:34: Blood Gas Puncture Site r rad, Blood Gas Patient Temperature 99.3, Arterial Blood pH 7.38, Arterial Blood Partial Pressure CO2 80*H, Arterial Blood Partial Pressure O2 92, Arterial Blood HCO3 46*H, Arterial Blood Total CO2 48.1H, Arterial Blood Oxygen Saturation 98, Arterial Blood Base Excess 19.4H, Bruce Test YES-POS, Blood Gas Ventilator Setting NO, Blood Gas Inspired Oxygen 40% 03/22/17 20:50: Random Tobramycin Level 3.0L 03/23/17 05:27: White Blood Count 6.5, Red Blood Count 3.34L, Hemoglobin 9.9L, Hematocrit 34L, Mean Corpuscular Volume 101H, Mean Corpuscular Hemoglobin 30, Mean Corpuscular Hemoglobin Concent 29L, Red Cell Distribution Width 13.3, Platelet Count 277, Mean Platelet Volume 10.4, Neutrophils (%) (Auto) 93H, Lymphocytes (%) (Auto) 3L , Monocytes (%) (Auto) 4, Eosinophils (%) (Auto) 0, Basophils (%) (Auto) 0, Neutrophils # (Auto) 6.0, Lymphocytes # (Auto) 0.2L, Monocytes # (Auto) 0.3, Eosinophils # (Auto) 0.0, Basophils # (Auto) 0.0, Sodium Level 140, Potassium Level 4.3, Chloride Level 92L, Carbon Dioxide Level 40H, Anion Gap 8, Blood Urea Nitrogen 15, Creatinine 0.73, Estimat Glomerular Filtration Rate > 60, BUN/ Creatinine Ratio 21, Glucose Level 199H, Calcium Level 9.4, Total Bilirubin 0.5 , Aspartate Amino Transf (AST/SGOT) 20, Alanine Aminotransferase (ALT/SGPT) 23, Alkaline Phosphatase 70, Total Protein 6.5, Albumin 3.7 03/23/17 09:24: Troponin I < 0.30 03/23/17 13:05: Troponin I < 0.30 03/26/17 05:15: White Blood Count 8.9, Red Blood Count 3.69L, Hemoglobin 10.9L, Hematocrit 36, Mean Corpuscular Volume 97, Mean Corpuscular Hemoglobin 30, Mean Corpuscular Hemoglobin Concent 31L, Red Cell Distribution Width 13.7, Platelet Count 359, Mean Platelet Volume 9.8, Neutrophils (%) (Auto) 80H, Lymphocytes (%) (Auto) 6L , Monocytes (%) (Auto) 14H, Eosinophils (%) (Auto) 0, Basophils (%) (Auto) 0, Neutrophils # (Auto) 7.2, Lymphocytes # (Auto) 0.5L, Monocytes # (Auto) 1.2H, Eosinophils # (Auto) 0.0, Basophils # (Auto) 0.0, Sodium Level 138, Potassium Level 3.7, Chloride Level 91L, Carbon Dioxide Level 38H, Anion Gap 9, Blood Urea Nitrogen 23H, Creatinine 0.84, Estimat Glomerular Filtration Rate > 60, BUN /Creatinine Ratio 27, Glucose Level 263H, Calcium Level 8.7, Phosphorus Level 2.8, Magnesium Level 1.9, Thyroid Stimulating Hormone (TSH) 0.37 03/26/17 08:00: Urine Color YELLOW, Urine Clarity CLEAR, Urine pH 7, Urine Specific [place] 1.010L, Urine Protein NEGATIVE, Urine Glucose (UA) 1+H, Urine Ketones NEGATIVE, Urine Nitrite NEGATIVE, Urine Bilirubin NEGATIVE, Urine Urobilinogen NORMAL, Urine Leukocyte Esterase NEGATIVE, Urine RBC (Auto) NEGATIVE, Urine RBC NONE, Urine WBC NONE, Urine Squamous Epithelial Cells 0-2, Urine Crystals NONE, Urine Bacteria NEGATIVE, Urine Casts NONE, Urine Mucus NEGATIVE, Urine Culture Indicated NO 12/20/17 05:15: White Blood Count 7.6, Red Blood Count 3.72L, Hemoglobin 11.2L, Hematocrit 36, Mean Corpuscular Volume 97, Mean Corpuscular Hemoglobin 30, Mean Corpuscular Hemoglobin Concent 31L, Red Cell Distribution Width 13.7, Platelet Count 338, Mean Platelet Volume 9.9, Neutrophils (%) (Auto) 78H, Lymphocytes (%) (Auto) 8L , Monocytes (%) (Auto) 11, Eosinophils (%) (Auto) 4, Basophils (%) (Auto) 0, Neutrophils # (Auto) 6.0, Lymphocytes # (Auto) 0.6L, Monocytes # (Auto) 0.8, Eosinophils # (Auto) 0.3, Basophils # (Auto) 0.0, Sodium Level 139, Potassium Level 3.8, Chloride Level 93L, Carbon Dioxide Level 40H, Anion Gap 6, Blood Urea Nitrogen 18, Creatinine 0.77, Estimat Glomerular Filtration Rate > 60, BUN/ Creatinine Ratio 23, Glucose Level 156H, Calcium Level 8.7, Phosphorus Level 3.9 , Magnesium Level 1.8 03/28/17 05:41: White Blood Count 7.5, Red Blood Count 3.70L, Hemoglobin 11.2L, Hematocrit 36, Mean Corpuscular Volume 96, Mean Corpuscular Hemoglobin 30, Mean Corpuscular Hemoglobin Concent 32, Red Cell Distribution Width 13.4, Platelet Count 338, Mean Platelet Volume 9.9, Neutrophils (%) (Auto) 80H, Lymphocytes (%) (Auto) 6L , Monocytes (%) (Auto) 10, Eosinophils (%) (Auto) 4, Basophils (%) (Auto) 0, Neutrophils # (Auto) 5.9, Lymphocytes # (Auto) 0.5L, Monocytes # (Auto) 0.7, Eosinophils # (Auto) 0.3, Basophils # (Auto) 0.0, Sodium Level 137, Potassium Level 4.1, Chloride Level 90L, Carbon Dioxide Level 41H, Anion Gap 6, Blood Urea Nitrogen 18, Creatinine 0.85, Estimat Glomerular Filtration Rate > 60, BUN/ Creatinine Ratio 21, Glucose Level 173H, Calcium Level 9.0, Phosphorus Level 3.9 , Magnesium Level 1.7L, Neutrophils % (Manual) 84, Lymphocytes % (Manual) 5, Monocytes % (Manual) 3, Eosinophils % (Manual) 6, Basophils % (Manual) 0, Band Neutrophils 0, Hypochromasia SLIGHT, Elliptocytes SLIGHT, Rouleau SLIGHT Microbiology 03/22/17 Blood Culture - Final, Complete No growth 03/22/17 Gram Stain - Final, Complete 03/22/17 Sputum Culture - Final, Complete Pseudomonas Aeruginosa Presumptive Susanne Albicans Laboratory Tests 03/22/17 07:30 03/23/17 05:27 03/26/17 05:15 03/27/17 05:15 03/28/17 05:41 Pending Labs Microbiology Date/Time Source Procedure Growth Status 03/22/17 07:55 Peripheral Rt Ac Blood Culture - Final No growth Complete 03/22/17 07:30 Peripheral Lt Ac Blood Culture - Final No growth Complete 03/22/17 07:30 Sputum Induced Gram Stain - Final Complete 03/22/17 07:30 Sputum Culture - Final Pseudomonas Aeruginosa Presumptive Susanne Albicans Complete Laboratory Tests 03/22/17 07:30: White Blood Count 6.1, Red Blood Count 3.31, Hemoglobin 10.1, Hematocrit 35, Mean Corpuscular Volume 106, Mean Corpuscular Hemoglobin 31, Mean Corpuscular Hemoglobin Concent 29, Red Cell Distribution Width 12.9, Platelet Count 246, Mean Platelet Volume 10.6, Neutrophils (%) (Auto) 77, Lymphocytes (%) (Auto) 8, Monocytes (%) (Auto) 13, Eosinophils (%) (Auto) 2, Basophils (%) (Auto) 0, Neutrophils # (Auto) 4.7, Lymphocytes # (Auto) 0.5, Monocytes # (Auto) 0.8, Eosinophils # (Auto) 0.1, Basophils # (Auto) 0.0, D-Dimer 0.41, Sodium Level 140 , Potassium Level 4.8, Chloride Level 87, Carbon Dioxide Level 45, Anion Gap 8, Blood Urea Nitrogen 12, Creatinine 0.70, Estimat Glomerular Filtration Rate > 60 , BUN/Creatinine Ratio 17, Glucose Level 168, Lactic Acid Level 0.61, Calcium Level 9.9, Total Bilirubin 0.3, Aspartate Amino Transf (AST/SGOT) 26, Alanine Aminotransferase (ALT/SGPT) 26, Alkaline Phosphatase 77, B-Type Natriuretic Peptide 639.2, Total Protein 6.8, Albumin 3.7 03/22/17 09:25: Blood Gas Puncture Site R BRACH, Blood Gas Patient Temperature 99.2, Arterial Blood pH 7.32, Arterial Blood Partial Pressure CO2 95, Arterial Blood Partial Pressure O2 26, Arterial Blood HCO3 48, Arterial Blood Total CO2 50.5, Arterial Blood Oxygen Saturation 39, Arterial Blood Base Excess 20.7, Bruce Test YES-POS , Blood Gas Ventilator Setting NO, Blood Gas Inspired Oxygen 40% 03/22/17 11:34: Blood Gas Puncture Site r rad, Blood Gas Patient Temperature 99.3, Arterial Blood pH 7.38, Arterial Blood Partial Pressure CO2 80, Arterial Blood Partial Pressure O2 92, Arterial Blood HCO3 46, Arterial Blood Total CO2 48.1, Arterial Blood Oxygen Saturation 98, Arterial Blood Base Excess 19.4, Bruce Test YES-POS , Blood Gas Ventilator Setting NO, Blood Gas Inspired Oxygen 40% 03/22/17 20:50: Random Tobramycin Level 3.0 03/23/17 05:27: White Blood Count 6.5, Red Blood Count 3.34, Hemoglobin 9.9, Hematocrit 34, Mean Corpuscular Volume 101, Mean Corpuscular Hemoglobin 30, Mean Corpuscular Hemoglobin Concent 29, Red Cell Distribution Width 13.3, Platelet Count 277, Mean Platelet Volume 10.4, Neutrophils (%) (Auto) 93, Lymphocytes (%) (Auto) 3, Monocytes (%) (Auto) 4, Eosinophils (%) (Auto) 0, Basophils (%) (Auto) 0, Neutrophils # (Auto) 6.0, Lymphocytes # (Auto) 0.2, Monocytes # (Auto) 0.3, Eosinophils # (Auto) 0.0, Basophils # (Auto) 0.0, Sodium Level 140, Potassium Level 4.3, Chloride Level 92, Carbon Dioxide Level 40, Anion Gap 8, Blood Urea Nitrogen 15, Creatinine 0.73, Estimat Glomerular Filtration Rate > 60, BUN/ Creatinine Ratio 21, Glucose Level 199, Calcium Level 9.4, Total Bilirubin 0.5, Aspartate Amino Transf (AST/SGOT) 20, Alanine Aminotransferase (ALT/SGPT) 23, Alkaline Phosphatase 70, Total Protein 6.5, Albumin 3.7 03/23/17 09:24: Troponin I < 0.30 03/23/17 13:05: Troponin I < 0.30 03/26/17 05:15: White Blood Count 8.9, Red Blood Count 3.69, Hemoglobin 10.9, Hematocrit 36, Mean Corpuscular Volume 97, Mean Corpuscular Hemoglobin 30, Mean Corpuscular Hemoglobin Concent 31, Red Cell Distribution Width 13.7, Platelet Count 359, Mean Platelet Volume 9.8, Neutrophils (%) (Auto) 80, Lymphocytes (%) (Auto) 6, Monocytes (%) (Auto) 14, Eosinophils (%) (Auto) 0, Basophils (%) (Auto) 0, Neutrophils # (Auto) 7.2, Lymphocytes # (Auto) 0.5, Monocytes # (Auto) 1.2, Eosinophils # (Auto) 0.0, Basophils # (Auto) 0.0, Sodium Level 138, Potassium Level 3.7, Chloride Level 91, Carbon Dioxide Level 38, Anion Gap 9, Blood Urea Nitrogen 23, Creatinine 0.84, Estimat Glomerular Filtration Rate > 60, BUN/ Creatinine Ratio 27, Glucose Level 263, Calcium Level 8.7, Phosphorus Level 2.8 , Magnesium Level 1.9, Thyroid Stimulating Hormone (TSH) 0.37 03/26/17 08:00: Urine Color YELLOW, Urine Clarity CLEAR, Urine pH 7, Urine Specific [place] 1.010, Urine Protein NEGATIVE, Urine Glucose (UA) 1+, Urine Ketones NEGATIVE, Urine Nitrite NEGATIVE, Urine Bilirubin NEGATIVE, Urine Urobilinogen NORMAL, Urine Leukocyte Esterase NEGATIVE, Urine RBC (Auto) NEGATIVE, Urine RBC NONE, Urine WBC NONE, Urine Squamous Epithelial Cells 0-2, Urine Crystals NONE, Urine Bacteria NEGATIVE, Urine Casts NONE, Urine Mucus NEGATIVE, Urine Culture Indicated NO 03/27/17 05:15: White Blood Count 7.6, Red Blood Count 3.72, Hemoglobin 11.2, Hematocrit 36, Mean Corpuscular Volume 97, Mean Corpuscular Hemoglobin 30, Mean Corpuscular Hemoglobin Concent 31, Red Cell Distribution Width 13.7, Platelet Count 338, Mean Platelet Volume 9.9, Neutrophils (%) (Auto) 78, Lymphocytes (%) (Auto) 8, Monocytes (%) (Auto) 11, Eosinophils (%) (Auto) 4, Basophils (%) (Auto) 0, Neutrophils # (Auto) 6.0, Lymphocytes # (Auto) 0.6, Monocytes # (Auto) 0.8, Eosinophils # (Auto) 0.3, Basophils # (Auto) 0.0, Sodium Level 139, Potassium Level 3.8, Chloride Level 93, Carbon Dioxide Level 40, Anion Gap 6, Blood Urea Nitrogen 18, Creatinine 0.77, Estimat Glomerular Filtration Rate > 60, BUN/ Creatinine Ratio 23, Glucose Level 156, Calcium Level 8.7, Phosphorus Level 3.9 , Magnesium Level 1.8 03/28/17 05:41: White Blood Count 7.5, Red Blood Count 3.70, Hemoglobin 11.2, Hematocrit 36, Mean Corpuscular Volume 96, Mean Corpuscular Hemoglobin 30, Mean Corpuscular Hemoglobin Concent 32, Red Cell Distribution Width 13.4, Platelet Count 338, Mean Platelet Volume 9.9, Neutrophils (%) (Auto) 80, Lymphocytes (%) (Auto) 6, Monocytes (%) (Auto) 10, Eosinophils (%) (Auto) 4, Basophils (%) (Auto) 0, Neutrophils # (Auto) 5.9, Lymphocytes # (Auto) 0.5, Monocytes # (Auto) 0.7, Eosinophils # (Auto) 0.3, Basophils # (Auto) 0.0, Sodium Level 137, Potassium Level 4.1, Chloride Level 90, Carbon Dioxide Level 41, Anion Gap 6, Blood Urea Nitrogen 18, Creatinine 0.85, Estimat Glomerular Filtration Rate > 60, BUN/ Creatinine Ratio 21, Glucose Level 173, Calcium Level 9.0, Phosphorus Level 3.9 , Magnesium Level 1.7, Neutrophils % (Manual) 84, Lymphocytes % (Manual) 5, Monocytes % (Manual) 3, Eosinophils % (Manual) 6, Basophils % (Manual) 0, Band Neutrophils 0, Hypochromasia SLIGHT, Elliptocytes SLIGHT, Rouleau SLIGHT Discussion & Recommendations patient discharged to home. Patient have home health with a urinary retention problem. Patient feeling better Discharge Home Medications: Active Scripts Active Diltiazem 24Hr Cd (Diltiazem HCl) 240 Mg Cap.er.24h 240 Mg PO DAILY Eliquis (Apixaban) 2.5 Mg Tablet 2.5 Mg PO BID Reported Tums Ultra Strength (Calcium Carbonate) 1,177 Mg Tab.chew 1,177 Mg PO QID PRN Tylenol with Codeine #4 Tablet (Acetaminophen with Codeine) 1 Each Tablet 1 Tab PO HS Calcium 1,000 + D3 Caplet (Calcium Carbonate/Vitamin D3) 1 Each Tablet 1 Tab PO DAILY Aspirin EC (Aspirin) 81 Mg Tablet.dr 81 Mg PO 1300 Alendronate Sodium 70 Mg Tablet 70 Mg PO SA Ondansetron HCl 8 Mg Tablet 8 Mg PO Q8H PRN Hydromorphone HCl 2 Mg Tablet 2 Mg PO Q4H PRN Stress Formula (Multivits,Stress Formula) 1 Each Tablet 1 Tab PO DAILY Nitroglycerin 0.4 Mg Tab.subl 0.4 Mg SL UD PRN Atorvastatin Calcium 40 Mg Tablet 40 Mg PO HS Symbicort 160-4.5 Mcg Inhaler (Budesonide/Formoterol Fumarate) 10.2 Gm Hfa.aer.ad 2 Puff IH BID Spiriva Respimat 2.5MCG/ACTUATION (Tiotropium Hazel) 4 Gm Mist.inhal 2 Puff IH DAILY Pantoprazole Sodium 40 Mg Tablet.dr 40 Mg PO DAILY Furosemide 20 Mg Tablet 20 Mg PO 1300 Promethazine-Codeine Syrup (Promethazine HCl/Codeine) 118 Ml Syrup 10 Ml PO TID PRN Co Q-10 (Ubidecarenone) 200 Mg Capsule 200 Mg PO HS Cetirizine HCl 10 Mg Tablet 10 Mg PO HS Levothyroxine Sodium 50 Mcg Tablet 50 Mcg PO HS Albuterol Sulfate 2.5 Mg/3 Ml Vial.neb 2.5 Mg NEB 5XD PRN Metoprolol Tartrate 50 Mg Tablet 50 Mg PO BID Instructions to patient/family Please see electronic discharge instructions given to patient. Clinical Quality Measures DVT/VTE Risk/Contraindication: Risk Factor Score Per Nursin RFS Level Per Nursing on Admit: 4+=Very High WEST MCCAULEY DO Mar 29, 2017 06:54
== END 2017-03-28 12:20 | disposition home health service (06) | DRG 190 ==
LOC: EDUNIT# 07:21 → ER 07:22 → 4TH 07:53 → ICU 03-25 23:35 → 4TH 03-27 08:30
PROVIDERS: ADMIT Family Medicine; ATTEND Family Medicine
DX: J44.1 Chronic obstructive pulmonary disease with (acute) exacerbation (principal); I11.0 Hypertensive heart disease with heart failure; I50.31 Acute diastolic (congestive) heart failure; I47.1 Supraventricular tachycardia; I25.10 Atherosclerotic heart disease of native coronary artery without angina pectoris; I48.0 Paroxysmal atrial fibrillation; R30.0 Dysuria; R33.9 Retention of urine, unspecified; R07.9 Chest pain, unspecified; F41.9 Anxiety disorder, unspecified; R53.1 Weakness; I70.1 Atherosclerosis of renal artery; I27.20 Pulmonary hypertension, unspecified; E78.5 Hyperlipidemia, unspecified; E03.9 Hypothyroidism, unspecified; E83.42 Hypomagnesemia; Z85.118 Personal history of other malignant neoplasm of bronchus and lung; Z95.1 Presence of aortocoronary bypass graft; Z95.5 Presence of coronary angioplasty implant and graft; Z87.891 Personal history of nicotine dependence; Z95.820 Peripheral vascular angioplasty status with implants and grafts; Z87.01 Personal history of pneumonia (recurrent); Z92.21 Personal history of antineoplastic chemotherapy; Z92.3 Personal history of irradiation; Z22.39 Carrier of other specified bacterial diseases
CPT/HCPCS: 36415; 71010; 71020; 80048; 80053; 80200; 81000; 82805; 83605; 83735; 83880; 84100; 84443; 84484; 85007; 85025; 85027; 85379; 87040; 87070; 87077; 87186; 87205; 93005; 93041; 94640; 94660; 94760; 96374

== ENCOUNTER → 2017-05-01 | Outpatient (CLI) | payer MEDICARE, OTHER ==
[~2017-05-01] MED LIST changes: +ACET-790 PO; +ACHD5005 PO; +ALEN70TA47 PO; +APIX2.5T PO; +ASPI-983 PO; +BARIUM SUSPENSION 2.1% (VANILLA SILQ) 450 ML PO ONE; +CALC-697 PO; +CALC117719 PO; +CATHETER FLUSH 10 ML SYR IV PRN; +CIPR500T4 PO; +DILT240C53 PO; +DILT240C63 PO; -HYDR-3812 PO; +IOHEXOL 350 MG/ML 100 ML (OMNIPAQUE 350) VIAL IV ONE; +NS 100 ML (IVPB) BAG IV ONE
--- NOTE | 2017-05-01 11:05 | Diagnostic Imaging Report ---
PROCEDURE: CT chest and abdomen with contrast. TECHNIQUE: Multiple contiguous axial images were obtained through the chest and abdomen after the administration of intravenous contrast. INDICATION: Lung carcinoma and COPD. COMPARISON: Comparison is made with prior CT from 01/22/2017. FINDINGS: No axillary lymphadenopathy is identified. Pretracheal node measures approximately 10 mm compared with 7 mm on prior. No subcarinal lymphadenopathy is identified. Right hilar node anterior to the right pulmonary arteries approximately 11 mm, unchanged. Left hilum is unremarkable. There has been development of significant consolidation in the right lower lobe since prior CT. There does appear to be a small amount of fluid or mucous within the bronchus intermedius on the right. Interstitial and airspace infiltrate extends into the right middle lobe as well. There continues to be some atelectasis in the right middle lobe. The left lung appears to be fairly clear. There are emphysematous changes again noted. An area of linear density in the left upper lobe is stable. No pericardial or pleural fluid is detected. IMPRESSION: 1. Development of significant consolidation and infiltrate in the right lower lobe. This is likely on an infectious/inflammatory basis and followup after course of therapy to confirm clearing is recommended. CT ABDOMEN: No discrete liver mass is identified. Gallbladder is unremarkable. The pancreas and spleen are unremarkable. No adrenal mass is identified. The right kidney is unremarkable. Left kidney is atrophic. Small renal cysts are again noted. Aorta is heavily calcified but nonaneurysmal. There continues to be a large amount of stool within the colon. There is no ascites. No definite central retroperitoneal or mesenteric lymphadenopathy is detected. IMPRESSION: Stable CT of the abdomen when compared with exam from 01/22/2017. Dictated by: Dictated on workstation # [id number]
--- NOTE | 2017-05-01 14:51 | Diagnostic Imaging Report ---
INDICATION: Lung carcinoma, fell 2 days ago with pain in the thoracic spine and bilateral ribs. TECHNIQUE: The patient was administered 25.6 mCi of technetium 99m MDP intravenously and whole body imaging was performed after a 3 hour delay. COMPARISON: 01/22/2017. FINDINGS: Normal uptake of activity by the axial and appendicular skeleton is seen. There is uptake by the right kidney with excretion into the urinary bladder. Intense uptake in the proximal left humerus as well as within the T9, T11, L1, and L2 vertebral bodies is again noted, correlating with the known fractures. Uptake within bilateral ribs also appears to be similar to the prior exam. Vague uptake in the region of the right SI joint is unchanged. The long bones are unremarkable. No new focus of tracer accumulation is seen. IMPRESSION: Overall stable whole body bone scan when compared with the prior exam from 01/22/2017. Dictated by: Dictated on workstation # [id number]
== END ==
LOC: CARD 09:26
PROVIDERS: ATTEND Internal Medicine Hematology & Oncology
DX: C34.31 Malignant neoplasm of lower lobe, right bronchus or lung (principal)
CPT/HCPCS: 71260; 74160; 78306

== ENCOUNTER → 2017-05-01 | Outpatient (CLI) | payer MEDICARE, OTHER ==
[~2017-05-01] MED LIST changes: -BARIUM SUSPENSION 2.1% (VANILLA SILQ) 450 ML PO ONE; -CATHETER FLUSH 10 ML SYR IV PRN; -IOHEXOL 350 MG/ML 100 ML (OMNIPAQUE 350) VIAL IV ONE; -NS 100 ML (IVPB) BAG IV ONE
--- NOTE | 2017-05-01 11:56 | Diagnostic Imaging Report ---
INDICATION: Fall. TIME OF EXAM: 12:00 p.m. COMPARISON: Correlation is made with prior study 03/23/2017. FINDINGS: Changes of median sternotomy are noted. The heart size is normal. Extensive infiltrate has developed in the right perihilar and right basilar location suggestive of pneumonia. Left lung is fairly clear. No significant effusion is seen. There is no pneumothorax. IMPRESSION: Development of right-sided pneumonia. Dictated by: Dictated on workstation # [id number]
--- NOTE | 2017-05-01 12:00 | Diagnostic Imaging Report ---
INDICATION: Fall, bilateral rib pain. TIME OF EXAM: 12:02 p.m. Extensive infiltrate in right perihilar and right basilar region is again noted. No definite displaced rib fracture is identified. No pneumothorax is seen. IMPRESSION: Extensive right-sided infiltrate. No rib fractures identified. Dictated by: Dictated on workstation # [id number]
== END ==
LOC: RAD 11:16
PROVIDERS: ATTEND Family Medicine
DX: R91.8 Other nonspecific abnormal finding of lung field (principal)
CPT/HCPCS: 71046; 71110

== ENCOUNTER 2017-05-14 19:03 | Inpatient (IN) | payer MEDICARE, OTHER ==
[~2017-05-14] VITALS: Ht 152.4 cm; Wt 57.6 kg
[~2017-05-14 19:03] MED LIST changes: +CEFD300C3 PO; +FLUC100T6 PO; +METF500T4 PO
[2017-05-14] MEDS ORDERED: NS IV 1000 ML 1,000 ML IV ONE (19:10)
--- NOTE | 2017-05-14 19:41 | Diagnostic Imaging Report ---
INDICATION: Fall with chest pain Single AP view of the chest is obtained with comparison made to the study of 05/06/2017. Since the previous study, there has been improvement in aeration of the right parahilar region with development of linear atelectasis and/or scarring in the right base. Surgical changes noted in the upper left lung. There is mildly displaced left proximal humeral fracture with evidence of new displaced fracture in the proximal right humerus. No definite pneumothorax identified. IMPRESSION: Extensive chronic findings in the lungs with overall improvement in right parahilar aeration. There is persistent left humeral fracture with new displaced fracture of the proximal right humeral shaft. Dictated by: Dictated on workstation # [id number]
[2017-05-14 20:06] LABS: BASOPHILS # (AUTO) 0.1 10^3/uL (0.0-0.1); BASOPHILS % (AUTO) 0 % (0-10); EOSINOPHILS % (AUTO) 0 % (0-10); HEMATOCRIT 26 % (35-52); HEMOGLOBIN 8.2 G/DL (11.5-16.0); LYMPHOCYTES # (AUTO) 0.4 X 10^3 (1.0-4.0); LYMPHOCYTES % (AUTO) 2 % (12-44); MEAN CORPUSCULAR HEMOGLOBIN 28 PG (25-34); MEAN CORPUSCULAR HGB CONC 32 G/DL (32-36); MEAN CORPUSCULAR VOLUME 90 FL (80-99); MEAN PLATELET VOLUME 10.4 FL (7.4-10.4); MONOCYTES # (AUTO) 1.4 X 10^3 (0.0-1.0); MONOCYTES % (AUTO) 5 % (0-12); NEUTROPHILS # (AUTO) 25.8 X 10^3 (1.8-7.8); NEUTROPHILS % (AUTO) 93 % (42-75); PLATELET COUNT 416 10^3/uL (130-400); RED BLOOD COUNT 2.89 10^6/uL (4.35-5.85); RED CELL DISTRIBUTION WIDTH 15.9 % (10.0-14.5); WHITE BLOOD COUNT 27.6 10^3/uL (4.3-11.0)
[2017-05-14 20:16] LABS: INR 1.3 (0.8-1.4); PROTHROMBIN TIME PATIENT 15.9 SEC (12.2-14.7)
[2017-05-14 20:26] LABS: ALBUMIN 2.8 GM/DL (3.2-4.5); BILIRUBIN,TOTAL 0.9 MG/DL (0.1-1.0); CALCIUM 8.5 MG/DL (8.5-10.1); CREATININE SERUM 1.81 MG/DL (0.60-1.30); POTASSIUM 5.1 MMOL/L (3.6-5.0); TOTAL PROTEIN 5.8 GM/DL (6.4-8.2)
[2017-05-14 20:32] LABS: CLARITY,URINE SLIGHTLY CLOUDY; COLOR,URINE AMBER; GLUCOSE, URINE (UA) 4+ (NEGATIVE); KETONES,URINE 1+ (NEGATIVE); LEUKOCYTE ESTERASE ,URINE 1+ (NEGATIVE); NITRITE,URINE NEGATIVE (NEGATIVE); PH,URINE 5 (5-9); PROTEIN,URINE 2+ (NEGATIVE); UROBILINOGEN,URINE 1 MG/DL (NORMAL)
[2017-05-14 20:41] LABS: BAND NEUTROPHILS 2 %; BASOPHILS % (MANUAL) 0 %; ELLIPT/OVALOCYTES SLIGHT; EOSINOPHILS % (MANUAL) 0 %; HYPOCHROMASIA SLIGHT; LYMPHOCYTES % (MANUAL) 0 %; MONOCYTES % (MANUAL) 3 %; NEUTROPHILS % (MANUAL) 95 %; SPHEROCYTES SLIGHT; TARGET CELLS SLIGHT
--- NOTE | 2017-05-14 20:48 | Diagnostic Imaging Report ---
PROCEDURE: CT head without contrast. TECHNIQUE: Multiple contiguous axial images were obtained through the brain without the use of intravenous contrast. INDICATION: Fall with head injury and upper extremity weakness. FINDINGS: The ventricles and sulci are diffusely prominent, however, there is no evidence of hemorrhage. No abnormal mass effect or shift of midline structures is seen. The calvarium is intact and the visualized paranasal sinuses are clear. IMPRESSION: Senescent findings in the brain without CT evidence of acute intracranial abnormality. Dictated by: Dictated on workstation # [id number]
[2017-05-14] MEDS ORDERED: NS IV 500 ML 500 ML IV ONE (20:49)
[2017-05-14 20:52] LABS: BILIRUBIN,URINE 1+ (NEGATIVE)
[2017-05-14 20:53] LABS: AMORPHOUS SEDIMENT,UR MOD AMOR URATES /LPF; BACTERIA,URINE MODERATE /HPF; RBC,URINE RARE /HPF; WBC,URINE RARE /HPF
[2017-05-14] MEDS ORDERED: RT-ALBUTEROL/IPRATROPIUM 3 ML (DUONEB) VIAL ONE (20:58)
[2017-05-14] MEDS ORDERED: RT-ALBUTEROL/IPRATROPIUM 3 ML (DUONEB) VIAL INH ONE (21:00)
--- NOTE | 2017-05-14 21:05 | ED General ---
General Chief Complaint: Trauma-Non Activation Stated Complaint: FALL Nursing Triage Note: PT TO ED 10 PER EMS. SEE TRIAGE NOTE Nursing Sepsis Screen: No Definite Risk Source of Information: Patient, Family Exam Limitations: No Limitations History of Present Illness Date Seen by Provider: May 14, 2017 Time Seen by Provider: 20:45 Initial Comments Here with report of fall last night after tripping over her oxygen tubing this occurred at about 5 p.m. Found by her son today. She has angulation of the right extremity at the right hip and significant bruising to the right arm from elbow to above the shoulder. States that she fell on the right side. Denies loss of consciousness but was unable to get up due to the fall. Had multiple episodes of incontinence of stool as she had just recently taken some MiraLAX for constipation. Her son was able get her cleaned up. Ambulance was called. Noted to have blood pressure in the low 100s systolic. Patient just discharged from the hospital 6 days ago after pneumonia. Does report some shortness of breath currently. Does have long-standing COPD. Timing/Duration: 24 Hours Severity: Moderate, Severe Modifying Factors: improves with Rest Associated Systoms: No Chest Pain, Cough, No Fever/Chills, No Nausea/Vomiting, Shortness of Air, Weakness Allergies and Home Medications Allergies Coded Allergies: Penicillins (Verified Allergy, Severe, ANAPHYLAXIS, 09/04/16) hydrochlorothiazide (Verified Allergy, Intermediate, RASH, 01/29/17) penicillin G (Verified Allergy, Unknown, 09/04/16) Home Medications Acetaminophen with Codeine 1 Each Tablet, 1 TAB PO HS, (Reported) Albuterol Sulfate 2.5 Mg/3 Ml Vial.neb, 2.5 MG NEB 5XD PRN for SHORTNESS OF BREATH, (Reported) Alendronate Sodium 70 Mg Tablet, 70 MG PO Sa, (Reported) Apixaban 2.5 Mg Tablet, 2.5 MG PO BID, (Reported) Aspirin 81 Mg Tablet.dr, 81 MG PO 1300, (Reported) Atorvastatin Calcium 40 Mg Tablet, 40 MG PO HS, (Reported) Calcium Carbonate 1,177 Mg Tab.chew, 1,177 MG PO QID PRN for INDIGESTION, ( Reported) Calcium Carbonate/Vitamin D3 1 Each Tablet, 1 TAB PO DAILY, (Reported) Cefdinir 300 Mg Capsule, 300 MG PO BID for 5 Days Prescribed by: ALISHA PATEL on 05/07/17 1040 Cetirizine HCl 10 Mg Tablet, 10 MG PO HS, (Reported) Diltiazem HCl 240 Mg Cap.er.24h, 240 MG PO DAILY, (Reported) Fluconazole 100 Mg Tablet, 100 MG PO DAILY for 5 Days Prescribed by: ALISHA PATEL on 05/07/17 1040 Furosemide 20 Mg Tablet, 20 MG PO 1300, (Reported) Hydromorphone HCl 2 Mg Tablet, 2 MG PO Q4H PRN for PAIN-SEVERE, (Reported) Levothyroxine Sodium 50 Mcg Tablet, 50 MCG PO HS, (Reported) Metformin HCl 500 Mg Tablet, 500 MG PO BID@07,17, #60 Ref 1 Prescribed by: ALISHA PATEL on 05/07/17 1040 Metoprolol Tartrate 50 Mg Tablet, 50 MG PO BID, (Reported) Multivits,Stress Formula 1 Each Tablet, 1 TAB PO DAILY, (Reported) Nitroglycerin 0.4 Mg Tab.subl, 0.4 MG SL UD PRN for CHEST PAIN, (Reported) Pantoprazole Sodium 40 Mg Tablet.dr, 40 MG PO DAILY, (Reported) Prednisone 10 Mg Tab, 10 MG PO DAILY@1200 for 5 Days Prescribed by: ALISHA PATEL on 05/07/17 1040 Promethazine HCl/Codeine 118 Ml Syrup, 10 ML PO TID PRN for COUGH, (Reported) Tiotropium [place] 4 Gm Mist.inhal, 2 PUFF IH DAILY, (Reported) Ubidecarenone 200 Mg Capsule, 200 MG PO HS, (Reported) Constitutional: see HPI, No chills, No fever, weakness EENTM: no symptoms reported Respiratory: see HPI, short of breath, wheezing Cardiovascular: No chest pain, No edema Gastrointestinal: No abdominal pain, diarrhea, No nausea, No vomiting Genitourinary: decreased output, No dysuria Musculoskeletal: see HPI, joint pain, joint swelling, muscle pain Skin: change in color, No lesions Psychiatric/Neurological: Denies Headache, Weakness Hematologic/Lymphatic: Denies Blood Clots, Easy Bruising Immunological/Allergic: no symptoms reported All Other Systems Reviewed Negative Unless Noted: Yes Past Ycywlvz-Zyejcv-Ffpsic Hx Patient Social History Alcohol Use: Denies Use Recreational Drug Use: No Smoking Status: Former Smoker Type Used: Cigarettes Former Smoker, Quit: Jan 28, 2013 Recent Foreign Travel: No Contact w/Someone Who Travel: No Recent Infectious Disease Expo: No Recent Hopitalizations: No Physical Abuse: No Sexual Abuse: No Mistreated: No Fear: No Immunizations Up To Date Tetanus Booster (TDap): Unknown PED Vaccines UTD: Yes Date of Pneumonia Vaccine: Jan 07, 2016 Date of Influenza Vaccine: Jan 06, 2017 Seasonal Allergies Seasonal Allergies: Yes Surgeries History of Surgeries: Yes (CARDIAC CATH) Surgeries: CABG, Lobectomy, Vascular Surgery Respiratory History of Respiratory Disorde: Yes Respiratory Disorders: COPD Currently Using CPAP: No Currently Using BIPAP: No Cardiovascular History of Cardiac Disorders: Yes (cabg with stents) Cardiac Disorders: Coronary Artery Disease, Hypertension, Peripheral Vascular Neurological History of Neurological Disord: Yes (ANXIETY) Reproductive System Hx Reproductive Disorders: Yes (26 YRS. 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 Disorders: Denies Genitourinary History of Genitourinary Disor: No Gastrointestinal History of Gastrointestinal Di: Yes ("BUTTERFLY" HERNIA) Musculoskeletal History of Musculoskeletal Dis: Yes Musculoskeletal Disorders: Arthritis Endocrine History of Endocrine Disorders: Yes HEENT History of HEENT Disorders: Yes HEENT Disorders: Cataract Loss of Vision: Denies Hearing Impairment: Denies Cancer History of Cancer: Yes Cancer: Lung Psychosocial History of Psychiatric Problem: Yes Behavioral Health Disorders: Anxiety Suicide Risk Score: 0 Integumentary History of Skin or Integumenta: No Blood Transfusions History of Blood Disorders: No Adverse Reaction to a Blood Tr: No Reviewed Nursing Assessment Reviewed/Agree w Nursing PMH: Yes Family Medical History Significant Family History: No Pertinent Family Hx Family Medial History: Chest pain 09 SISTER Congestive heart failure G-MA Family history: Cardiovascular disease 03 FATHER (68) 09 SISTER Family history: Hypertension 03 FATHER 09 SISTER G-MA Stroke Physical Exam-Suspected Sepsis Physical Exam Vital Signs Vital Signs - First Documented 05/14/17 19:08 Temp 96.4 Pulse 117 Resp 20 B/P (MAP) 90/66 (74) Pulse Ox 93 O2 Delivery Room Air O2 Flow Rate 4.00 Capillary Refill : Less Than 3 Seconds Blood Pressure Mean: 74 General Appearance: No Apparent Distress, WD/WN HEENT: PERRL/EOMI, Pharynx Normal Neck: Full Range of Motion, Normal Inspection, Non Tender, Supple Respiratory: Decreased Breath Sounds, Wheezing Cardiovascular: Regular Rate, Rhythm, Tachycardia Gastrointestinal: Non Tender, Soft Back: No CVA Tenderness, No Vertebral Tenderness Extremity: Pelvis Stable, Other (tenderness and deformity to the right hip. Tenderness and deformity to the right proximal humerus with significant amount of ecchymosis.) Neurologic/Psychiatric: Alert, Oriented x3, Normal Mood/Affect Skin: ecchymosis (significant ecchymosis from the elbow to about shoulder on the right. Multiple other small bruises throughout the body.) Focused Exam Evaluation Lactate Level Laboratory Tests 05/14/17 19:57: Lactic Acid Level 3.73*H Lactic Acid Level Laboratory Tests Test 05/14/17 19:57 Lactic Acid Level 3.73 MMOL/L (0.50-2.00) *H Lumen: triple Central Line Procedure: betadine prep Position: internal jugular (R) Anesthesia: Lidocaine Volume Anesthetic (ccs): 3 Complications: none Post Position: sutured Progress Tolerated procedure well. Post-via ultrasound guidance. One stick. No complications. Progress/Results/Core Measures Suspected Sepsis Recent Fever Within 48 Hours: No Infection Criteria Present: None New/Unexplained Altered Menta: No Sepsis Screen: No Definite Risk Sepsis Diagnosis: SIRS Temperature:96.4 Pulse: 117 Respiratory Rate: 20 Laboratory Tests 05/14/17 19:57: White Blood Count 27.6H Blood Pressure 90 /66 Mean: 74 Laboratory Tests 05/14/17 19:57: Lactic Acid Level 3.73*H Laboratory Tests 05/14/17 19:57: Creatinine 1.81H, INR Comment 1.3, Platelet Count 416H, Total Bilirubin 0.9 Results/Orders Lab Results Laboratory Tests Test 05/14/17 19:57 05/14/17 20:14 Range/Units White Blood Count 27.6 H 4.3-11.0 10^3/uL Red Blood Count 2.89 L 4.35-5.85 10^6/uL Hemoglobin 8.2 L 11.5-16.0 G/DL Hematocrit 26 L 35-52 % Mean Corpuscular Volume 90 80-99 FL Mean Corpuscular Hemoglobin 28 25-34 PG Mean Corpuscular Hemoglobin Concent 32 32-36 G/DL Red Cell Distribution Width 15.9 H 10.0-14.5 % Platelet Count 416 H 130-400 10^3/uL Mean Platelet Volume 10.4 7.4-10.4 FL Neutrophils (%) (Auto) 93 H 42-75 % Lymphocytes (%) (Auto) 2 L 12-44 % Monocytes (%) (Auto) 5 0-12 % Eosinophils (%) (Auto) 0 0-10 % Basophils (%) (Auto) 0 0-10 % Neutrophils # (Auto) 25.8 H 1.8-7.8 X 10^3 Lymphocytes # (Auto) 0.4 L 1.0-4.0 X 10^3 Monocytes # (Auto) 1.4 H 0.0-1.0 X 10^3 Eosinophils # (Auto) 0.0 0.0-0.3 10^3/uL Basophils # (Auto) 0.1 0.0-0.1 10^3/uL Neutrophils % (Manual) 95 % Lymphocytes % (Manual) 0 % Monocytes % (Manual) 3 % Eosinophils % (Manual) 0 % Basophils % (Manual) 0 % Band Neutrophils 2 % Hypochromasia SLIGHT Spherocytes SLIGHT Target Cells SLIGHT Elliptocytes SLIGHT Prothrombin Time 15.9 H 12.2-14.7 SEC INR Comment 1.3 0.8-1.4 Activated Partial Thromboplast Time 33 24-35 SEC Sodium Level 129 L 135-145 MMOL/L Potassium Level 5.1 H 3.6-5.0 MMOL/L Chloride Level 84 L 98-107 MMOL/L Carbon Dioxide Level 28 21-32 MMOL/L Anion Gap 17 H 5-14 MMOL/L Blood Urea Nitrogen 36 H 7-18 MG/DL Creatinine 1.81 H 0.60-1.30 MG/DL Estimat Glomerular Filtration Rate 28 BUN/Creatinine Ratio 20 Glucose Level 333 H 70-105 MG/DL Lactic Acid Level 3.73 *H 0.50-2.00 MMOL/L Calcium Level 8.5 8.5-10.1 MG/DL Total Bilirubin 0.9 0.1-1.0 MG/DL Aspartate Amino Transf (AST/SGOT) 35 H 5-34 U/L Alanine Aminotransferase (ALT/SGPT) 35 0-55 U/L Alkaline Phosphatase 100 40-136 U/L Total Creatine Kinase 309 H 29-168 U/L Total Protein 5.8 L 6.4-8.2 GM/DL Albumin 2.8 L 3.2-4.5 GM/DL Urine Color ANNIE H Urine Clarity SLIGHTLY CLOUDY Urine pH 5 5-9 Urine Specific [place] 1.020 1.016-1.022 Urine Protein 2+ H NEGATIVE Urine Glucose (UA) 4+ H NEGATIVE Urine Ketones 1+ H NEGATIVE Urine Nitrite NEGATIVE NEGATIVE Urine Bilirubin 1+ H NEGATIVE Urine Urobilinogen 1 NORMAL MG/DL Urine Leukocyte Esterase 1+ H NEGATIVE Urine RBC (Auto) 1+ H NEGATIVE Urine RBC RARE /HPF Urine WBC RARE /HPF Urine Crystals PRESENT H /LPF Urine Amorphous Sediment MOD DEBBIE URATES H /LPF Urine Bacteria MODERATE H /HPF Urine Casts NONE /LPF Urine Mucus NEGATIVE /LPF Urine Culture Indicated NO My Orders Orders - JUVENTINO DON MD Cbc With Automated Diff (05/14/17 19:10) Comprehensive Metabolic Panel (05/14/17 19:10) Lactic Acid Analyzer (05/14/17 19:10) Blood Culture (05/14/17 19:10) Sputum Culture (05/14/17 19:10) Ua Culture If Indicated (05/14/17 19:10) Protime With Inr (05/14/17 19:10) Partial Thromboplastin Time (05/14/17 19:10) Chest 1 View, Ap/Pa Only (05/14/17 19:10) O2 (05/14/17 19:10) Saline Lock/Iv-Start (05/14/17 19:10) Saline Lock/Iv-Start (05/14/17 19:10) Vital Signs Adult Sepsis Patie Q1H (05/14/17 19:10) Remove Rings In Anticipation O (05/14/17 19:10) Saline Lock/Iv-Start (05/14/17 19:10) Ns Iv 1000 Ml (Sodium Chloride 0.9%) (05/14/17 19:10) Creatine Kinase (05/14/17 19:50) Ct Head Wo (05/14/17 19:50) Humerus, Right, 2 Views (05/14/17 19:50) Manual Differential (05/14/17 19:57) Pelvis With Right Hip 2-3views (05/14/17 20:15) Ns Iv 500 Ml (Sodium Chloride 0.9%) (05/14/17 20:49) Albuterol/Ipra Inhalation Soln (Duoneb I (05/14/17 21:00) Svn Sm Volume Nebulizer Rt-Rfs (05/14/17 20:59) Albuterol/Ipra Inhalation Soln (Duoneb I (05/14/17 20:58) Ekg Tracing (05/14/17 21:15) Chest 1 View, Ap/Pa Only (05/14/17 22:10) Cefepime Injection (Maxipime Injection) (05/14/17 22:10) Medications Given in ED Current Medications Medications Dose Ordered Sig/Imelda Route Start Time Stop Time Status Last Admin Dose Admin Albuterol/ Ipratropium 3 ml ONCE ONCE INH 05/14/17 21:00 05/14/17 21:01 DC 05/14/17 21:00 3 ML Sodium Chloride 500 ml @ 0 mls/hr Q0M ONCE IV 05/14/17 20:49 05/14/17 20:50 DC 05/14/17 21:40 5,000 MLS/HR Sodium Chloride 1,000 ml @ 0 mls/hr Q0M ONCE IV 05/14/17 19:10 05/14/17 19:12 DC 05/14/17 20:14 1,000 MLS/HR Vital Signs/I&O Vital Sign - Last 12Hours 05/14/17 05/14/17 19:08 21:01 Temp 96.4 Pulse 117 Resp 20 B/P (MAP) 90/66 (74) Pulse Ox 93 97 O2 Delivery Room Air Nasal Cannula O2 Flow Rate 4.00 5.00 Capillary Refill : Less Than 3 Seconds Blood Pressure Mean: 74 Progress Note : Progress Note Seen and evaluated. IV by EMS. Labs, EKG, chest x-ray, right humerus x-ray, right hip and pelvis x-ray ordered. Normal saline 1 L bolus. Patient has lower blood pressure so we will initiate hydration especially in the light of the fact that she's been on the floor for the last 24 hours. Monitor patient. I think acid elevated. Patient's weight is 40 kg. We will add 500 mL of normal saline IV bolus which will exceed the 30 mL/kg bolus total requirement. Patient has poor access and will need better access. We will initiate central line for fluids, blood draws and the need for antibiotics. Patient just recovered from pneumonia. White count is significantly elevated and she has chronic lung disease. Lungs looked better than last visit a week ago but still concerns for pneumonia given her history. We will initiate antibiotics and admission. 0: I have discussed the case with Dr. De León who will need to be consulted for the hip fracture and right humerus fracture. This consult was placed. Patient will require medicine admission due to severe sepsis findings and other underlying medical conditions with orthopedics on consult. Dr. Mccauley is her primary we will admit him. Her quality review specialist is Dr. Martin and he will be consulted in the morning. Dr. Dubois also to be consulted in the morning. 2201: I did discuss the case with Dr. Mccauley. Central line has been placed. We will initiate cefepime 2 g IV for sepsis protocol nosocomial infection. Patient is penicillin allergic. We will continue IV fluids. Blood pressure currently 97/66. She is certainly floating on persistent hypotension and may require pressors. Dr. Mccauley has requested one unit of packed red blood cells to be transfused and this was ordered. We will type and cross for 2 and hold 1 and transfused one in the ICU. Patient otherwise tolerating procedures well. O2 sat 93 percent on 5 L. I do believe that there is likely underlying pneumonia given white count and current findings. White count elevation may be associated with the fractures as well. We will treat just in case. Admit, inpatient status, critical condition. Patient and family agree with plan. 2223: I attest to focused exam at this time. Diagnostic Imaging Diagonstic Imaging: Xray Plain Films/CT/US/NM/MRI: chest Comments NAME: JUAN FRANCISCO [facility] REC#: [id number] PT STATUS: REG ER : 1945 PHYSICIAN: JUVENTINO DON MD ADMIT DATE: 05/14/17/ER Signed Date of Exam: 05/14/17 CHEST 1 VIEW, AP/PA ONLY INDICATION: Fall with chest pain Single AP view of the chest is obtained with comparison made to the study of 05/06/2017. Since the previous study, there has been improvement in aeration of the right parahilar region with development of linear atelectasis and/or scarring in the right base. Surgical changes noted in the upper left lung. There is mildly displaced left proximal humeral fracture with evidence of new displaced fracture in the proximal right humerus. No definite pneumothorax identified. IMPRESSION: Extensive chronic findings in the lungs with overall improvement in right parahilar aeration. There is persistent left humeral fracture with new displaced fracture of the proximal right humeral shaft. Dictated by: Dictated on workstation # [id number] Dict: 05/14/171933 Trans: 05/14/172028 Interpreted by: FAVIOLA JOSEPH MD Electronically signed by: FAVIOLA JOSEPH MD 05/14/172028 Reviewed: Reviewed by Al Diagonstic Imaging: Xray Plain Films/CT/US/NM/MRI: other Comments [facility] [place], [place] NAME: JUAN FRANCISCO [facility] REC#: [id number] PT STATUS: REG ER : 1945 PHYSICIAN: JUVENTINO DON MD ADMIT DATE: 05/14/17/ER Draft Date of Exam:05/14/17 HUMERUS, RIGHT, 2 VIEWS INDICATION: Fall with right arm pain. FINDINGS: AP and lateral views of the right humerus reveal a comminuted, impacted and mildly displaced fracture of the proximal humeral shaft at the humeral neck junction. No definite dislocation is identified. Articular surfaces of the humeral head appear to be intact. There is no evidence of elbow abnormality. IMPRESSION: Mildly impacted and angulated comminuted fracture at the level of the right humeral neck without definite dislocation identified. Dictated on workstation # [id number] Dict: 05/14/172103 Trans: 05/14/172106 ACB [id number] Interpreted by: FAVIOLA JOSEPH MD Electronically signed by: Reviewed: Reviewed by Al Diagonstic Imaging: Xray Plain Films/CT/US/NM/MRI: pelvis, hip Comments [facility]IA [facility] [place], [place] NAME: JUAN FRANCISCO [facility] REC#: [id number] PT STATUS: REG ER : 1945 PHYSICIAN: JUVENTINO DON MD ADMIT DATE: 05/14/17/ER Draft Date of Exam:05/14/17 PELVIS WITH RIGHT HIP 2-3VIEWS INDICATION: Fall with right hip pain AP view of the pelvis is obtained with coned AP and lateral views of the right hip. There is comminuted intertrochanteric fracture of the proximal right femur with varus angulation. No dislocation is identified. There is no other evidence of fracture in the pelvis. There is diffuse atherosclerotic disease with stenting of the iliac vessels. IMPRESSION: Mildly angulated comminuted intertrochanteric fracture of the proximal right femur without other evidence of acute abnormality in the pelvis. Dictated on workstation # [id number] Dict: 05/14/172100 Trans: 05/14/172103 [facility] [id number] Interpreted by: FAVIOLA JOSEPH MD Electronically signed by: Reviewed: Reviewed by Al Diagonstic Imaging: CT Plain Films/CT/US/NM/MRI: head Comments VIA [place], [place] NAME: JUAN FRANCISCO [facility] REC#: [id number] PT STATUS: REG ER : 1945 PHYSICIAN: JUVENTINO DON MD ADMIT DATE: 05/14/17/ER Draft Date of Exam:05/14/17 CT HEAD WO PROCEDURE: CT head without contrast. TECHNIQUE: Multiple contiguous axial images were obtained through the brain without the use of intravenous contrast. INDICATION: Fall with head injury and upper extremity weakness. FINDINGS: The ventricles and sulci are diffusely prominent, however, there is no evidence of hemorrhage. No abnormal mass effect or shift of midline structures is seen. The calvarium is intact and the visualized paranasal sinuses are clear. IMPRESSION: Senescent findings in the brain without CT evidence of acute intracranial abnormality. Dictated on workstation # [id number] Dict: 05/14/172043 Trans: 05/14/172047 [facility]B [id number] Interpreted by: FAVIOLA JOSEPH MD Electronically signed by: Diagonstic Imaging: Xray Plain Films/CT/US/NM/MRI: chest Comments Status post central line placement. Central line in good position without pneumothorax. Right lower lobe with increased infiltrate findings now. Departure Communication (Admissions) Time/Spoke to Admitting Phy: 22:02 Time/Spoke to Consulting Phy: 21:03 Impression Impression: Primary Impression: Severe sepsis Additional Impressions: Right lower lobe pneumonia Qualified Codes: J18.1 - Lobar pneumonia, unspecified organism Closed fracture of right proximal humerus Qualified Codes: S42.291A - Other displaced fracture of upper end of right humerus, initial encounter for closed fracture Closed right hip fracture Qualified Codes: S72.001A - Fracture of unspecified part of neck of right femur, initial encounter for closed fracture Disposition: ADMITTED INPATIENT Condition: Critical Admissions Decision to Admit Reason: Admit from ER (General) Decision to Admit/Date: May 14, 2017 Time/Decision to Admit Time: 22:06 Departure-Patient Inst. Referrals: WEST MCCAULEY DO (PCP/Family) Primary Care Physician JUVENTINO DON MD May 14, 2017 21:05
[2017-05-14] MEDS ORDERED: CEFEPIME INJECTION 2,000 MG in NS (IVPB) 50 ML IV STA (22:10)
[2017-05-14] MEDS ORDERED: NS IV 1000 ML 1,000 ML ONE (23:23)
[2017-05-14 23:30] VITALS: BP 106/62
[2017-05-14] MEDS ORDERED: fentaNYL INJECTION 100 MCG/2 ML AMP ONE (23:43)
[2017-05-14 23:45] VITALS: BP 106/58
[2017-05-14] MEDS ORDERED: NOREPINEPHRINE 4 MG in NS (IVPB) 250 ML IV SCH (23:47)
[2017-05-15] VITALS (34 sets, daily range): BP systolic 91–166; BP diastolic 53–93
[2017-05-15] MEDS ORDERED: NS IV 1000 ML 1,000 ML IV SCH (00:05)
[2017-05-15] MEDS ORDERED: VANCOMYCIN 1 GM/NS 250 ML IVPB IV SCH ×2 (00:15)
[2017-05-15] MEDS ORDERED: NS IV PRN (00:15)
[2017-05-15] MEDS ORDERED: LEVOFLOXACIN 750 MG/D5W 150 ML PRE-MIX IV ONE (00:15)
[2017-05-15 00:25] LABS: MAGNESIUM 1.5 MG/DL (1.8-2.4); PHOSPHORUS 3.8 MG/DL (2.3-4.7)
[2017-05-15 00:37] LABS: CALCIUM 7.3 MG/DL (8.5-10.1); CREATININE SERUM 1.52 MG/DL (0.60-1.30); POTASSIUM 4.3 MMOL/L (3.6-5.0)
[2017-05-15] MEDS: NS IV 1000 ML 1,000 ML IV SCH ×4 (00:45→13:39)
[2017-05-15] MEDS: NOREPINEPHRINE 4 MG in NS (IVPB) 250 ML IV SCH ×2 (00:45→13:29)
[2017-05-15] MEDS ORDERED: MAGNESIUM 1 GM/100 ML IVPB 200 ML IV ONE (00:48)
[2017-05-15] MEDS: MAGNESIUM 1 GM/100 ML IVPB 100 ML IV SCH ×3 (00:56→05:34)
[2017-05-15] MEDS: fentaNYL INJECTION 100 MCG/2 ML AMP IV PRN ×7 (02:14→23:08)
[2017-05-15] MEDS ORDERED: inSUlin DETERMIR 1 UNIT/0.01 ML (LEVEMIR) CHARGE PER UNIT SQ SCH (02:51)
[2017-05-15] MEDS: inSUlin (REGULAR) HUMAN 1 UNIT/0.01 ML (CHARGE PER UNIT) SC SCH ×5 (03:42→20:54)
[2017-05-15 05:09] LABS: BASOPHILS % (AUTO) 0 % (0-10); EOSINOPHILS % (AUTO) 0 % (0-10); LYMPHOCYTES # (AUTO) 0.4 X 10^3 (1.0-4.0); LYMPHOCYTES % (AUTO) 3 % (12-44); MEAN CORPUSCULAR HEMOGLOBIN 28 PG (25-34); MEAN CORPUSCULAR HGB CONC 32 G/DL (32-36); MEAN CORPUSCULAR VOLUME 88 FL (80-99); MEAN PLATELET VOLUME 9.7 FL (7.4-10.4); MONOCYTES # (AUTO) 0.5 X 10^3 (0.0-1.0); MONOCYTES % (AUTO) 3 % (0-12); NEUTROPHILS # (AUTO) 13.2 X 10^3 (1.8-7.8); NEUTROPHILS % (AUTO) 94 % (42-75); PLATELET COUNT 323 10^3/uL (130-400); RED CELL DISTRIBUTION WIDTH 15.7 % (10.0-14.5); WHITE BLOOD COUNT 14.1 10^3/uL (4.3-11.0)
[2017-05-15 05:12] LABS: HEMATOCRIT 18 % (35-52); HEMOGLOBIN 5.6 G/DL (11.5-16.0)
[2017-05-15 05:25] LABS: BILIRUBIN,TOTAL 0.3 MG/DL (0.1-1.0); CALCIUM 6.9 MG/DL (8.5-10.1); CREATININE SERUM 1.26 MG/DL (0.60-1.30); MAGNESIUM 2.2 MG/DL (1.8-2.4); PHOSPHORUS 3.6 MG/DL (2.3-4.7)
[2017-05-15] MEDS: KCL 20 MEQ TAB (K-DUR) PO SCH (05:34)
[2017-05-15] MEDS: POTASSIUM CL 10MEQ/50ML IVPB 50 ML IV SCH (05:34)
[2017-05-15] MEDS ORDERED: CEFEPIME 1 GM/NS 50 ML IV SCH ×2 (06:00)
--- NOTE | 2017-05-15 06:10 | Pulmonary Progress Note ---
Subjective Time Seen by Provider: 06:02 Subjective/Events-last exam 72yo with hx of COPD and recent hospital admission and discharge 6days ago for PNA readmitted after being found on floor and she was unable to get up. She states she tripped over her oxygen tubing. Pt was found to have a fracture of the right hip and right arm. Pt denies LOC. This morning there extensive ecchymosis of right arm and Hb dropped from around 8 to 5. Blood pressure has been in the 90's. Exam Exam Vital Signs Date Time Temp Pulse Resp B/P (MAP) Pulse Ox O2 Delivery O2 Flow Rate FiO2 05/15/17 05:00 105 21 91/65 (74) 99 Nasal Cannula 6.00 05/15/17 04:31 98.2 Nasal Cannula 6.00 05/15/17 04:00 101 22 104/63 (77) 97 Nasal Cannula 6.00 05/15/17 04:00 96 Nasal Cannula 6.00 05/15/17 03:00 101 20 93/56 (68) 96 Nasal Cannula 6.00 05/15/17 02:00 118 105/58 (74) 98 Nasal Cannula 6.00 05/15/17 01:13 107 05/15/17 01:00 105 23 99/53 (68) 98 Nasal Cannula 6.00 05/15/17 00:45 108 22 103/56 (72) 96 Nasal Cannula 6.00 05/15/17 00:30 110 21 96/56 (69) 97 Nasal Cannula 6.00 05/15/17 00:29 Nasal Cannula 6.00 05/15/17 00:15 113 21 99/62 (74) 96 Nasal Cannula 6.00 05/15/17 00:00 112 23 103/59 (74) 98 Nasal Cannula 6.00 05/14/17 23:45 111 23 106/58 (74) 95 Nasal Cannula 6.00 05/14/17 23:35 100.1 Nasal Cannula 6.00 05/14/17 23:30 112 20 106/62 (77) 91 Nasal Cannula 6.00 05/14/17 23:10 107 18 95 Room Air 05/14/17 21:01 97 Nasal Cannula 5.00 05/14/17 19:08 96.4 117 20 90/66 (74) 93 Room Air 4.00 I & O 05/15/17 07:00 Intake Total 3200 ml Output Total 200 ml Balance 3000 ml General Appearance: No Apparent Distress, WD/WN HEENT: PERRL/EOMI, Pharynx Normal Neck: Full Range of Motion, Normal Inspection, Non Tender, Supple Respiratory: Decreased Breath Sounds, Wheezing Cardiovascular: Regular Rate, Rhythm, Tachycardia Capillary Refill: Less Than 3 Seconds Extremity: Pelvis Stable, Other (tenderness and deformity to the right hip. Tenderness and deformity to the right proximal humerus with significant amount of ecchymosis.) Neurologic/Psychiatric: Alert, Oriented x3, Normal Mood/Affect Results Lab Laboratory Tests 05/14/17 19:57 05/15/17 00:00 05/15/17 05:05 Clinical Quality Measures DVT/VTE Risk/Contraindication: Risk Factor Score Per Nursin RFS Level Per Nursing on Admit: 4+=Very High ALTAGRACIA WALLACE DO May 15, 2017 06:10
--- NOTE | 2017-05-15 06:21 | Pulmonary Consultation ---
History of Present Illness History of Present Illness Date of Consultation 05/15/17 06:15 Time Seen by Provider: 06:15 Date of Admission History of Present Illness 72yo with hx of COPD and recent hospital admission and discharge 6days ago for PNA readmitted after being found on floor and she was unable to get up. She states she tripped over her oxygen tubing. Pt was found to have a fracture of the right hip and right arm. Pt denies LOC. This morning there extensive ecchymosis of right arm and Hb dropped from around 8 to 5. Blood pressure has been in the 90's. Allergies and Home Medications Allergies Coded Allergies: Penicillins (Verified Allergy, Severe, ANAPHYLAXIS, 09/04/16) hydrochlorothiazide (Verified Allergy, Intermediate, RASH, 01/29/17) penicillin G (Verified Allergy, Unknown, 09/04/16) Home Medications Acetaminophen with Codeine 1 Each Tablet, 1 TAB PO HS, (Reported) Albuterol Sulfate 2.5 Mg/3 Ml Vial.neb, 2.5 MG NEB 5XD PRN for SHORTNESS OF BREATH, (Reported) Alendronate Sodium 70 Mg Tablet, 70 MG PO Sa, (Reported) Apixaban 2.5 Mg Tablet, 2.5 MG PO BID, (Reported) Aspirin 81 Mg Tablet.dr, 81 MG PO 1300, (Reported) Atorvastatin Calcium 40 Mg Tablet, 40 MG PO HS, (Reported) Calcium Carbonate 1,177 Mg Tab.chew, 1,177 MG PO QID PRN for INDIGESTION, ( Reported) Calcium Carbonate/Vitamin D3 1 Each Tablet, 1 TAB PO DAILY, (Reported) Cetirizine HCl 10 Mg Tablet, 10 MG PO HS, (Reported) Diltiazem HCl 240 Mg Cap.er.24h, 240 MG PO DAILY, (Reported) Furosemide 20 Mg Tablet, 20 MG PO 1300, (Reported) Hydromorphone HCl 2 Mg Tablet, 2 MG PO Q4H PRN for PAIN-SEVERE, (Reported) Levothyroxine Sodium 50 Mcg Tablet, 50 MCG PO HS, (Reported) Metformin HCl 500 Mg Tablet, 500 MG PO BID WITH MEALS, (Reported) Metoprolol Tartrate 50 Mg Tablet, 50 MG PO BID, (Reported) Multivits,Stress Formula 1 Each Tablet, 1 TAB PO DAILY, (Reported) Nitroglycerin 0.4 Mg Tab.subl, 0.4 MG SL UD PRN for CHEST PAIN, (Reported) Pantoprazole Sodium 40 Mg Tablet.dr, 40 MG PO DAILY, (Reported) Promethazine HCl/Codeine 118 Ml Syrup, 10 ML PO TID PRN for COUGH, (Reported) Tiotropium [place] 4 Gm Mist.inhal, 2 PUFF IH DAILY, (Reported) Ubidecarenone 200 Mg Capsule, 200 MG PO HS, (Reported) Past Evjubfo-Rjoavt-Mpstyk Hx Patient Social History Alcohol Use: Denies Use Recreational Drug Use: No Smoking Status: Former Smoker Type Used: Cigarettes Former Smoker, Quit: Jan 28, 2013 Recent Foreign Travel: No Contact w/Someone Who Travel: No Recent Infectious Disease Expo: No Recent Hopitalizations: No Physical Abuse: No Sexual Abuse: No Mistreated: No Fear: No Immunizations Up To Date Tetanus Booster (TDap): Unknown PED Vaccines UTD: Yes Date of Pneumonia Vaccine: Jan 07, 2016 Date of Influenza Vaccine: Jan 06, 2017 Seasonal Allergies Seasonal Allergies: Yes Surgeries History of Surgeries: Yes (CARDIAC CATH) Surgeries: CABG, Lobectomy, Vascular Surgery Respiratory History of Respiratory Disorde: Yes Respiratory Disorders: COPD Currently Using CPAP: No Currently Using BIPAP: No Cardiovascular History of Cardiac Disorders: Yes (cabg with stents) Cardiac Disorders: Coronary Artery Disease, Hypertension, Peripheral Vascular Neurological History of Neurological Disord: Yes (ANXIETY) Reproductive System Hx Reproductive Disorders: Yes (26 YRS. 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 Disorders: Denies Genitourinary History of Genitourinary Disor: No Gastrointestinal History of Gastrointestinal Di: Yes ("BUTTERFLY" HERNIA) Musculoskeletal History of Musculoskeletal Dis: Yes Musculoskeletal Disorders: Arthritis Endocrine History of Endocrine Disorders: Yes HEENT History of HEENT Disorders: Yes HEENT Disorders: Cataract Loss of Vision: Denies Hearing Impairment: Denies Cancer History of Cancer: Yes Cancer: Lung Psychosocial History of Psychiatric Problem: Yes Behavioral Health Disorders: Anxiety Suicide Risk Score: 0 Integumentary History of Skin or Integumenta: No Blood Transfusions History of Blood Disorders: No Adverse Reaction to a Blood Tr: No Reviewed Nursing Assessment Reviewed/Agree w Nursing PMH: Yes Family Medical History Significant Family History: No Pertinent Family Hx Family Medial History: Chest pain 09 SISTER Congestive heart failure G-MA Family history: Cardiovascular disease 03 FATHER (68) 09 SISTER Family history: Hypertension 03 FATHER 09 SISTER G-MA Stroke Review of Systems Time Seen by Provider: 08:18 Constitutional: Fever, Chills, Sweats, Weakness, Malaise Eyes: No: Pain, Vision change, Conjunctivae inflammation, Eyelid inflammation, Other, Redness ENT: Ear discharge, Nose congestion Respiratory: Cough, Dry, Shortness of breath, SOB with excertion, No: Wheezing Cardiovascular: No: Chest Pain, Palpitations, Orthopnea, Paroxysmal Noc. Dyspnea, Edema, Lt Headedness, Other Gastrointestinal: No: Nausea, Vomiting, Abdominal Pain, Diarrhea, Constipation , Melena, Hematochezia, Other Neurological: Weakness Exam Exam Vital Signs Date Time Temp Pulse Resp B/P (MAP) Pulse Ox O2 Delivery O2 Flow Rate FiO2 05/15/17 05:00 105 21 91/65 (74) 99 Nasal Cannula 6.00 05/15/17 04:31 98.2 Nasal Cannula 6.00 05/15/17 04:00 101 22 104/63 (77) 97 Nasal Cannula 6.00 05/15/17 04:00 96 Nasal Cannula 6.00 05/15/17 03:00 101 20 93/56 (68) 96 Nasal Cannula 6.00 05/15/17 02:00 118 105/58 (74) 98 Nasal Cannula 6.00 05/15/17 01:13 107 05/15/17 01:00 105 23 99/53 (68) 98 Nasal Cannula 6.00 05/15/17 00:45 108 22 103/56 (72) 96 Nasal Cannula 6.00 05/15/17 00:30 110 21 96/56 (69) 97 Nasal Cannula 6.00 05/15/17 00:29 Nasal Cannula 6.00 05/15/17 00:15 113 21 99/62 (74) 96 Nasal Cannula 6.00 05/15/17 00:00 112 23 103/59 (74) 98 Nasal Cannula 6.00 05/14/17 23:45 111 23 106/58 (74) 95 Nasal Cannula 6.00 05/14/17 23:35 100.1 Nasal Cannula 6.00 05/14/17 23:30 112 20 106/62 (77) 91 Nasal Cannula 6.00 05/14/17 23:10 107 18 95 Room Air 05/14/17 21:01 97 Nasal Cannula 5.00 05/14/17 19:08 96.4 117 20 90/66 (74) 93 Room Air 4.00 I & O 05/15/17 07:00 Intake Total 3200 ml Output Total 200 ml Balance 3000 ml General Appearance: No Apparent Distress, WD/WN HEENT: PERRL/EOMI, Pharynx Normal Neck: Full Range of Motion, Normal Inspection, Non Tender, Supple Respiratory: Decreased Breath Sounds, Wheezing Cardiovascular: Regular Rate, Rhythm, Tachycardia Capillary Refill: Less Than 3 Seconds Gastrointestinal: normal bowel sounds, non tender, soft, no organomegaly Extremity: Other (tenderness and deformity to the right hip. Tenderness and deformity to the right proximal humerus with significant amount of ecchymosis.) Neurologic/Psychiatric: Alert, Oriented x3, Normal Mood/Affect Skin: Normal Color, Warm/Dry Results Lab Laboratory Tests 05/14/17 19:57 05/15/17 00:00 05/15/17 05:05 Assessment/Plan Assessment/Plan S/P Fall with right hip and Right Humerus fracture -Ortho is consulted -Consult trauma surgeon -acute blood loss with rapid drop in Hb and hypotension probably from fractured Humerus -US RUE -transfuse 2 units of PRBC typed and crossed Severe Sepsis with pneumonia -Continue broadspectrum Abx -Landeros culture pending Hypotension -IVF -transfusion 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
--- NOTE | 2017-05-15 06:24 | Diagnostic Imaging Report ---
INDICATION: Central line placement. Comparison with 05/14/2017. FINDINGS: Right IJ line is present. Tip overlies a supervening caval shadow in good position. Increasing infiltrate especially in the right lower lobe. There is obstructive airway disease again noted. Heart is not enlarged. Probable mild pulmonary edema is developing. No pneumothorax. No pleural effusion. IMPRESSION: 1. Satisfactory right IJ line placement. 2. Increasing infiltrates with consolidation developing in the right lower lung. Dictated by: Dictated on workstation # [id number]
--- NOTE | 2017-05-15 07:22 | History & Physicial ---
History of Present Illness History of Present Illness Reason for visit/HPI Patient tripped over nasal oxygen at home. Patient unable to get up. Patient has fracture of right hip and right upper arm. Patient has bruises in the right upper arm above the elbow. Patient could not get up. Patient on floor for 24 hours till son came. Patient recently in hospital for pneumonia. Patient had acute blood loss. Patient hypotensive. Date of Admission May 14, 2017 at 22:20 Time Seen by Provider: 07:05 I consulted on this patient on 05/15/17 07:17 Attending Physician Sanju Mccauley DO Admitting Physician Sanju Mccauley DO Consult Allergies and Home Medications Allergies Coded Allergies: Penicillins (Verified Allergy, Severe, ANAPHYLAXIS, 09/04/16) hydrochlorothiazide (Verified Allergy, Intermediate, RASH, 01/29/17) penicillin G (Verified Allergy, Unknown, 09/04/16) Home Medications Acetaminophen with Codeine 1 Each Tablet, 1 TAB PO HS, (Reported) Albuterol Sulfate 2.5 Mg/3 Ml Vial.neb, 2.5 MG NEB 5XD PRN for SHORTNESS OF BREATH, (Reported) Alendronate Sodium 70 Mg Tablet, 70 MG PO Sa, (Reported) Apixaban 2.5 Mg Tablet, 2.5 MG PO BID, (Reported) Aspirin 81 Mg Tablet.dr, 81 MG PO 1300, (Reported) Atorvastatin Calcium 40 Mg Tablet, 40 MG PO HS, (Reported) Calcium Carbonate 1,177 Mg Tab.chew, 1,177 MG PO QID PRN for INDIGESTION, ( Reported) Calcium Carbonate/Vitamin D3 1 Each Tablet, 1 TAB PO DAILY, (Reported) Cefdinir 300 Mg Capsule, 300 MG PO BID for 5 Days Prescribed by: ALISHA PATEL on 05/07/17 1040 Cetirizine HCl 10 Mg Tablet, 10 MG PO HS, (Reported) Diltiazem HCl 240 Mg Cap.er.24h, 240 MG PO DAILY, (Reported) Fluconazole 100 Mg Tablet, 100 MG PO DAILY for 5 Days Prescribed by: ALISHA PATEL on 05/07/17 1040 Furosemide 20 Mg Tablet, 20 MG PO 1300, (Reported) Hydromorphone HCl 2 Mg Tablet, 2 MG PO Q4H PRN for PAIN-SEVERE, (Reported) Levothyroxine Sodium 50 Mcg Tablet, 50 MCG PO HS, (Reported) Metformin HCl 500 Mg Tablet, 500 MG PO BID@07,17, #60 Ref 1 Prescribed by: ALISHA PATEL on 05/07/17 1040 Metoprolol Tartrate 50 Mg Tablet, 50 MG PO BID, (Reported) Multivits,Stress Formula 1 Each Tablet, 1 TAB PO DAILY, (Reported) Nitroglycerin 0.4 Mg Tab.subl, 0.4 MG SL UD PRN for CHEST PAIN, (Reported) Pantoprazole Sodium 40 Mg Tablet.dr, 40 MG PO DAILY, (Reported) Prednisone 10 Mg Tab, 10 MG PO DAILY@1200 for 5 Days Prescribed by: ALISHA PATEL on 05/07/17 1040 Promethazine HCl/Codeine 118 Ml Syrup, 10 ML PO TID PRN for COUGH, (Reported) Tiotropium [place] 4 Gm Mist.inhal, 2 PUFF IH DAILY, (Reported) Ubidecarenone 200 Mg Capsule, 200 MG PO HS, (Reported) Past Ilgnifr-Alawge-Jqpydq Hx Patient Social History Marrital Status: Employed/Student: unemployed Alcohol Use: Denies Use Recreational Drug Use: No Smoking Status: Former Smoker Former Smoker, Quit: Jan 28, 2013 Type Used: Cigarettes Physical Abuse Screen: No Sexual Abuse: No Recent Foreign Travel: No Contact w/other who traveled: No Recent Hopitalizations: No Recent Infectious Disease Expo: No Immunizations Up To Date Tetanus Booster (TDap): Unknown Pediatric: Yes Date of Pneumonia Vaccine: Jan 07, 2016 Date of Influenza Vaccine: Jan 06, 2017 Seasonal Allergies Seasonal Allergies: Yes Surgeries Yes (CARDIAC CATH) CABG, Lobectomy, Vascular Surgery Respiratory Yes COPD, Pneumonia Currently Using CPAP: No Currently Using BIPAP: No Cardiovascular Yes (cabg with stents) Coronary Artery Disease, Hypertension, Peripheral Vascular Neurological Yes (ANXIETY) Reproductive System Hx Reproductive Disorders: Yes (26 YRS. 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 Disorders: Denies Genitourinary No Gastrointestinal Yes ("BUTTERFLY" HERNIA) Musculoskeletal Yes Arthritis Endocrine History of Endocrine Disorders: Yes HEENT History of HEENT Disorders: Yes HEENT Disorders: Cataract Loss of Vision: Denies Hearing Impairment: Denies Cancer Yes Lung Psychosocial History of Psychiatric Problem: Yes Behavioral Health Disorders: Anxiety Integumentary History of Skin or Integumenta: No Blood Transfusions History of Blood Disorders: No Adverse Reaction to a Blood Tr: No Reviewed Nursing Assessment Reviewed/Agree w Nursing PMH: Yes Family Medical History Significant Family History: No Pertinent Family Hx Family Hx: Chest pain 09 SISTER Congestive heart failure G-MA Family history: Cardiovascular disease 03 FATHER (68) 09 SISTER Family history: Hypertension 03 FATHER 09 SISTER G-MA Stroke Constitutional: malaise, weakness EENTM: no symptoms reported Respiratory: short of breath Cardiovascular: no symptoms reported Gastrointestinal: no symptoms reported Genitourinary: no symptoms reported Physical Exam Vital Signs Vital Signs - First Documented 05/14/17 19:08 Temp 96.4 Pulse 117 Resp 20 B/P (MAP) 90/66 (74) Pulse Ox 93 O2 Delivery Room Air O2 Flow Rate 4.00 Capillary Refill : Less Than 3 SecondsLess Than 3 Seconds General Appearance: No Apparent Distress, Thin Eyes: Bilateral Eye Normal Inspection HEENT: Normal ENT Inspection Neck: Full Range of Motion, Normal Inspection Respiratory: No Accessory Muscle Use, No Respiratory Distress, Decreased Breath Sounds Cardiovascular: Regular Rate, Rhythm, No Murmur Gastrointestinal: Non Tender, Soft Extremity: Other (Fractured right hip and shoulder) Assessment/Plan Assessment and Plan Fall. Fractured right hip and right shoulder. Acute blood loss. Anemia. Sepsis with pneumonia. Hypotension. Pneumonia. Due to MRSA and Pseudomonas history. History of bypass surgery heart. History of squamous cell lung cancer Problems: Clinical Quality Measures DVT/VTE Risk/Contraindication: Risk Factor Score Per Nursin RFS Level Per Nursing on Admit: 4+=Very High SANJU MCCAULEY DO May 15, 2017 07:22
--- NOTE | 2017-05-15 07:54 | CONSULTATION REPORT ---
DATE OF SERVICE: 05/15/2017 REASON FOR CONSULTATION: Right intertrochanteric femur fracture and right surgical neck of humerus fracture. HISTORY OF PRESENT ILLNESS: The patient is a 72-year-old female with COPD and squamous cell carcinoma of the lung who was recently discharged from the hospital. She was found by her son yesterday evening after falling the day prior. She was found to have an intertrochanteric femur fracture and a surgical neck of humerus fracture. In addition, she was felt to be septic with recurrent pneumonia. She was admitted to the ICU for management. PHYSICAL EXAMINATION: On exam, the patient is tender over the right proximal humerus. She has intact MCP extension, finger abduction, thumb IP flexion and extension. Sensation is intact in the radial ulnar, median and axillary distribution. The right hip demonstrates shortening with external rotation. She has symmetric pulses with intact dorsiflexion and plantarflexion of the toes. Sensation is intact throughout. LABORATORY DATA: Radiographs revealed an impacted surgical neck of humerus fracture on the right and a comminuted displaced right intertrochanteric femur fracture. ASSESSMENT: Right intertrochanteric femur fracture and right surgical neck of humerus fracture. PLAN: Closed treatment for the humerus regarding the intertrochanteric femur fracture, this will require internal fixation. Currently, the patient's hematocrit is 15. She has elevated white count and has been febrile. She needs to be optimized medically prior to taking to the operating room. We will hope to do this tomorrow. I discussed this with the patient. We discussed risks, benefits, options, complications and recovery. She understands and wishes to proceed. Job ID: [id number] DocumentID: [id number] Dictated Date: 05/15/2017 07:09:47 [employer] Programs Director Date: 05/15/2017 07:54:01 Dictated By: CARMEN CORDERO MD
--- NOTE | 2017-05-15 07:58 | Diagnostic Imaging Report ---
INDICATION: Right lower lobe pneumonia. COMPARISON: 05/14/2017. FINDINGS: There has been increased infiltrate and pleural effusion in the right lung base. Right upper lung is clear. The left lung shows mild hyperaeration with no infiltrate. Heart is not enlarged. Median sternotomy changes are present. Right central line remains in good position. IMPRESSION: Increasing right basilar infiltrate and increasing right basilar pleural effusion since previous exam. Dictated by: Dictated on workstation # [id number]
[2017-05-15] MEDS ORDERED: DEXTROSE 50% 50 ML (IMS) SYR ONE (08:27)
--- NOTE | 2017-05-15 08:52 | Diagnostic Imaging Report ---
EXAMINATION: Right upper extremity venous Doppler INDICATION: Humerus fracture, arm pain Spectral and color flow imaging of the deep venous system of the right upper extremity was performed. There is generally good blood flow and compressibility at all levels. There is no sign of a deep venous thrombosis. Incidental note is made of a central venous catheter within the internal jugular vein on the right. IMPRESSION: There is no evidence for deep venous thrombosis of the right upper extremity. Dictated by: Dictated on workstation # [id number]
[2017-05-15] MEDS ORDERED: DEXTROSE 50% 50 ML (IMS) SYR IV ONE (09:00)
[2017-05-15] MEDS ORDERED: METF500T4 PO (09:08)
--- NOTE | 2017-05-15 10:38 | Consultation-Cardiology ---
HPI-Cardiology Cardiology Consultation: Date of Consultation 05/15/17 Date of Admission Attending Physician Sanju Morris DO Admitting Physician Sanju Morris DO Consulting Physician Melanie FUNK MD HPI: Time Seen by Provider: 09:15 Chief Complaint: Fall This is a 72-year-old lady who presents after a fall. She hurt her right upper extremity as well as her hip. Significant bruising to the right arm as well. She denies any syncope or near syncope. She was also hypotensive. She was recently admitted for pneumonia. She stills has some shortness of breath. She has history of COPD, atrial fibrillation, CABG, diastolic dysfunction. She follows with Dr. Pal as an outpatient. Review of Systems-Cardiology Review of Systems Constitutional: As described under HPI Eyes: No As described under HPI, No no symptoms reported, No blindness, No blurred vision, No contact lenses, No drainage, No decreased acuity, No foreign body sensation, No pain, No vision change Ears/Nose/Throat: No As described under HPI, No no symptoms reported, No chronic hearing loss, No ear discharge, No ear pain, No nasal drainage, No ulcerations Respiratory: No no symptoms reported, No As described under HPI, No cough, No orthopnea, shortness of breath, No SOB with excertion, No SOB at rest, No stridor, No wheezing, No other Cardiovascular: No no symptoms reported, No As described under HPI, No chest pain, No edema, No irregular heart rate, No lightheadedness, No palpitations, No syncope, No other Gastrointestinal: No no symptoms reported, No As described under HPI, No abdomen distended, No abdominal pain, No blood streaked bowels, No constipation , No diarrhea, No difficulty swallowing, No nausea, No poor appetite, No poor fluid intake, No rectal bleeding, No vomiting, No other, No nausea/vomiting/ diarrhea, No stool coloration changes Genitourinary: No no symptoms reported, No As described under HPI, No burning, No dysuria, No discharge, No frequency, No flank pain, No hematuria, No incontinence, No pain, No urgency, No other, No urine frequency changes, No urine coloration changes Musculoskeletal: As describe under HPI, joint pain Skin: No no symptoms reported, As described under HPI, No change in color, No change in hair/nails, No dryness, No lesions, No lumps, No rash, other (right upper extremity bruising), No skin related problems, No ulcerations, No rash on exposed areas, No ulcerations on exposed areas Psychiatric/Neurological: No no symptoms reported, No As described under HPI, No anxiety, No depression, No emotional problems, No headache, No numbness, No pre-existing deficit, No seizure, No tingling, No tremors, No weakness, No other , No focal weakness, No syncope All Other Systems Reviewed Negative Unless Noted: Yes [id number] Hx Patient Social History Marrital Status: Employed/Student: unemployed Alcohol Use: Denies Use Recreational Drug Use: No Smoking Status: Former Smoker Former smoker/When Quit: Jul 11, 2012 Type Used: Cigarettes Recent Foreign Travel: No Recent Infectious Disease Expo: No Hospitalization with Isolation: Denies Physical Abuse Screen: No Sexual Abuse: No Immunizations Up To Date Tetanus Booster (TDap): Unknown Date of Pneumonia Vaccine: Jan 07, 2016 Date of Influenza Vaccine: Jan 06, 2017 Past Medical History PMH As described under Assessment. Family Medical History Family Medical History: She reports her father had CAD and HTN. She also reports a sister with CAD and HTN. Family History: Chest pain 09 SISTER Congestive heart failure G-MA Family history: Cardiovascular disease 03 FATHER (68) 09 SISTER Family history: Hypertension 03 FATHER 09 SISTER G-MA Stroke Allergies and Home Medications Allergies Coded Allergies: Penicillins (Verified Allergy, Severe, ANAPHYLAXIS, 09/04/16) hydrochlorothiazide (Verified Allergy, Intermediate, RASH, 01/29/17) penicillin G (Verified Allergy, Unknown, 09/04/16) Home Medications Acetaminophen with Codeine 1 Each Tablet, 1 TAB PO HS, (Reported) Albuterol Sulfate 2.5 Mg/3 Ml Vial.neb, 2.5 MG NEB 5XD PRN for SHORTNESS OF BREATH, (Reported) Alendronate Sodium 70 Mg Tablet, 70 MG PO Sa, (Reported) Apixaban 2.5 Mg Tablet, 2.5 MG PO BID, (Reported) Aspirin 81 Mg Tablet.dr, 81 MG PO 1300, (Reported) Atorvastatin Calcium 40 Mg Tablet, 40 MG PO HS, (Reported) Calcium Carbonate 1,177 Mg Tab.chew, 1,177 MG PO QID PRN for INDIGESTION, ( Reported) Calcium Carbonate/Vitamin D3 1 Each Tablet, 1 TAB PO DAILY, (Reported) Cetirizine HCl 10 Mg Tablet, 10 MG PO HS, (Reported) Diltiazem HCl 240 Mg Cap.er.24h, 240 MG PO DAILY, (Reported) Furosemide 20 Mg Tablet, 20 MG PO 1300, (Reported) Hydromorphone HCl 2 Mg Tablet, 2 MG PO Q4H PRN for PAIN-SEVERE, (Reported) Levothyroxine Sodium 50 Mcg Tablet, 50 MCG PO HS, (Reported) Metformin HCl 500 Mg Tablet, 500 MG PO BID WITH MEALS, (Reported) Metoprolol Tartrate 50 Mg Tablet, 50 MG PO BID, (Reported) Multivits,Stress Formula 1 Each Tablet, 1 TAB PO DAILY, (Reported) Nitroglycerin 0.4 Mg Tab.subl, 0.4 MG SL UD PRN for CHEST PAIN, (Reported) Pantoprazole Sodium 40 Mg Tablet.dr, 40 MG PO DAILY, (Reported) Promethazine HCl/Codeine 118 Ml Syrup, 10 ML PO TID PRN for COUGH, (Reported) Tiotropium [place] 4 Gm Mist.inhal, 2 PUFF IH DAILY, (Reported) Ubidecarenone 200 Mg Capsule, 200 MG PO HS, (Reported) Physical Exam-Cardiology Physical Exam Vital Signs/I&O Vital Sign - Last 12Hours 05/15/17 05/15/17 05/15/17 05/15/17 06:00 06:07 06:33 06:45 Temp 98.1 98.4 Pulse 97 98 101 Resp 23 16 19 B/P (MAP) 109/62 (78) 105/60 105/62 Pulse Ox 99 100 99 O2 Delivery Nasal Cannula Nasal Cannula Nasal Cannula Nasal Cannula O2 Flow Rate 6.00 6.00 6.00 4.00 05/15/17 05/15/17 05/15/17 05/15/17 07:00 07:00 08:00 08:36 Temp 97.1 Pulse 97 97 93 98 Resp 18 16 18 B/P (MAP) 110/60 (77) 112/65 (81) 117/62 (80) Pulse Ox 97 97 96 O2 Delivery Nasal Cannula Nasal Cannula Nasal Cannula O2 Flow Rate 4.00 4.00 4.00 05/15/17 05/15/17 05/15/17 05/15/17 09:00 09:00 09:09 10:00 Temp 96.7 Pulse 86 94 90 Resp 18 18 17 B/P (MAP) 99/60 (73) 117/63 126/71 (89) Pulse Ox 100 99 99 O2 Delivery Nasal Cannula Nasal Cannula Nasal Cannula Nasal Cannula O2 Flow Rate 4.00 4.00 4.00 4.00 05/15/17 05/15/17 05/15/17 05/15/17 10:02 10:20 11:00 12:00 Temp 96.7 96.4 Pulse 92 89 90 101 Resp 20 20 17 14 B/P (MAP) 126/71 144/75 146/73 (97) 124/93 (103) Pulse Ox 98 96 97 98 O2 Delivery Nasal Cannula Nasal Cannula Nasal Cannula Nasal Cannula O2 Flow Rate 4.00 4.00 4.00 4.00 05/15/17 05/15/17 05/15/17 05/15/17 12:03 12:45 13:00 13:00 Temp 98.2 Pulse 88 98 Resp 23 B/P (MAP) 150/78 (102) Pulse Ox 98 O2 Delivery Nasal Cannula Nasal Cannula O2 Flow Rate 4.00 4.00 05/15/17 05/15/17 05/15/17 13:12 16:05 16:10 Temp 98.1 98.4 Pulse 93 B/P (MAP) 155/89 O2 Delivery Nasal Cannula O2 Flow Rate 4.00 Intake and Output 05/15/17 00:00 Intake Total 1600 ml Balance 1600 ml Capillary Refill : Less Than 3 SecondsLess Than 3 Seconds Constitutional: AAO x 3 HEENT: PERRL, No discharge, hearing is well preserved, oral hygience is good, No ulceration, No xanthelasmas are seen Neck: No non-tender, No full range of motion, No supple, No normal inspection, No carotid bruit, No limited range of motion, No lymphadenopathy (R), No lymphadenopathy (L), No tender lateral, No tender midline, No thyromegaly, No other, carotid pulses are 2 + bilaterally, No with good upstrokes Respiratory: lungs clear to percussion, lungs clear to auscultation Cardiovascular: regular rate-rhythm, S1 and S2 Gastrointestinal: No tender, No soft, No round, No distended, No pulsatile mass , No organomegaly, No guarding, No rebound, No tenderness, No hernia, No mass, No audible bowel sounds, No abnormal bowel sounds, No abdominal bruits, No spleenomegaly, No other Rectal: deferred Extremities: tenderness Neurologic/Psychiatric: No chocolate packer II-XII nml as tested, No no motor/sensory deficits, alert, normal mood/affect, oriented x 3, No abnormal cerebellar tests , No abnormal chocolate packer II-XII, No abnormal gait, No aphasia, No EOM palsy, No facial droop, No motor weakness, No sensory deficit, No depressed affect, No disoriented x 3, No other, No grossly intact, No power is 5/5 both on sides Skin: No normal color, No warm/dry, No cyanosis, No cool, No diaphoresis, No damp, ecchymosis (significant ecchymosis from the elbow to about shoulder on the right. Multiple other small bruises throughout the body.), No jaundice, No mottled, No pallor, No rash, No tattoos/piercings, No ulcerations, No rash on exposed areas, No ulcerations on exposed areas, No other Data Review Labs Laboratory Tests 05/14/17 19:57: White Blood Count 27.6H, Red Blood Count 2.89L, Hemoglobin 8.2L, Hematocrit 26L , Mean Corpuscular Volume 90, Mean Corpuscular Hemoglobin 28, Mean Corpuscular Hemoglobin Concent 32, Red Cell Distribution Width 15.9H, Platelet Count 416H, Mean Platelet Volume 10.4, Neutrophils (%) (Auto) 93H, Lymphocytes (%) (Auto) 2L , Monocytes (%) (Auto) 5, Eosinophils (%) (Auto) 0, Basophils (%) (Auto) 0, Neutrophils # (Auto) 25.8H, Lymphocytes # (Auto) 0.4L, Monocytes # (Auto) 1.4H, Eosinophils # (Auto) 0.0, Basophils # (Auto) 0.1, Neutrophils % (Manual) 95, Lymphocytes % (Manual) 0, Monocytes % (Manual) 3, Eosinophils % (Manual) 0, Basophils % (Manual) 0, Band Neutrophils 2, Hypochromasia SLIGHT, Spherocytes SLIGHT, Target Cells SLIGHT, Elliptocytes SLIGHT, Prothrombin Time 15.9H, INR Comment 1.3, Activated Partial Thromboplast Time 33, Sodium Level 129L, Potassium Level 5.1H, Chloride Level 84L, Carbon Dioxide Level 28, Anion Gap 17H , Blood Urea Nitrogen 36H, Creatinine 1.81H, Estimat Glomerular Filtration Rate 28, BUN/Creatinine Ratio 20, Glucose Level 333H, Lactic Acid Level 3.73*H, Calcium Level 8.5, Total Bilirubin 0.9, Aspartate Amino Transf (AST/SGOT) 35H, Alanine Aminotransferase (ALT/SGPT) 35, Alkaline Phosphatase 100, Total Creatine Kinase 309H, Total Protein 5.8L, Albumin 2.8L 05/14/17 20:14: Urine Color AMBERH, Urine Clarity SLIGHTLY CLOUDY, Urine pH 5, Urine Specific [place] 1.020, Urine Protein 2+H, Urine Glucose (UA) 4+H, Urine Ketones 1+H, Urine Nitrite NEGATIVE, Urine Bilirubin 1+H, Urine Urobilinogen 1, Urine Leukocyte Esterase 1+H, Urine RBC (Auto) 1+H, Urine RBC RARE, Urine WBC RARE, Urine Crystals PRESENTH, Urine Amorphous Sediment MOD DEBBIE URATESH, Urine Bacteria MODERATEH, Urine Casts NONE, Urine Mucus NEGATIVE, Urine Culture Indicated NO 05/14/17 22:09: Lactic Acid Level 1.01 05/14/17 23:57: Glucometer 285H 05/15/17 00:00: Sodium Level 134L, Potassium Level 4.3, Chloride Level 92L, Carbon Dioxide Level 29, Anion Gap 13, Blood Urea Nitrogen 35H, Creatinine 1.52H, Estimat Glomerular Filtration Rate 34, BUN/Creatinine Ratio 23, Glucose Level 279H, Calcium Level 7.3L, Phosphorus Level 3.8, Magnesium Level 1.5L 05/15/17 03:37: Glucometer 320H 05/15/17 05:05: Sodium Level 133L, Potassium Level 4.0, Chloride Level 96L, Carbon Dioxide Level 30, Anion Gap 7, Blood Urea Nitrogen 31H, Creatinine 1.26, Estimat Glomerular Filtration Rate 42, BUN/Creatinine Ratio 25, Glucose Level 252H, Calcium Level 6.9L, Phosphorus Level 3.6, Magnesium Level 2.2, White Blood Count 14.1H, Red Blood Count 2.00L, Hemoglobin 5.6#*L, Hematocrit 18*L, Mean Corpuscular Volume 88, Mean Corpuscular Hemoglobin 28, Mean Corpuscular Hemoglobin Concent 32, Red Cell Distribution Width 15.7H, Platelet Count 323, Mean Platelet Volume 9.7, Neutrophils (%) (Auto) 94H, Lymphocytes (%) (Auto) 3L , Monocytes (%) (Auto) 3, Eosinophils (%) (Auto) 0, Basophils (%) (Auto) 0, Neutrophils # (Auto) 13.2H, Lymphocytes # (Auto) 0.4L, Monocytes # (Auto) 0.5, Eosinophils # (Auto) 0.0, Basophils # (Auto) 0.0, Lactic Acid Level 1.46, Total Bilirubin 0.3, Aspartate Amino Transf (AST/SGOT) 35H, Alanine Aminotransferase ( ALT/SGPT) 29, Alkaline Phosphatase 71, Total Protein 4.0L, Albumin 2.0L 05/15/17 08:27: Glucometer 34*L 05/15/17 09:04: Glucometer 106 05/15/17 10:20: Glucometer 52*L 05/15/17 10:48: Glucometer 83 05/15/17 11:33: Glucometer 79 05/15/17 12:07: Lab Scanned Report Transfusion Reaction Form 05/15/17 12:29: Glucometer 77 05/15/17 13:40: Hemoglobin 9.2#L, Hematocrit 27L 05/15/17 14:31: Glucometer 58*L 05/15/17 15:27: Glucometer 63L 05/15/17 16:25: Glucometer 60*L Microbiology 05/14/17 Blood Culture - Preliminary, Resulted No growth ECG Impression ECG Comment Significant artifact on EKG. Sinus tachycardia versus atrial fibrillation. A/P-Cardiology Assessment/Admission Diagnosis Hip and right arm fracture. Right lower lobe pneumonia/sepsis CAD/CABG, Paroxysmal atrial fibrillation, Diastolic dysfunction, Tricuspid regurgitation Plan Hip fracture: Likely hip surgery tomorrow. Patient is at moderate risk for perioperative major adverse cardiac events undergoing an intermediate risk non- cardiac surgery. There is no cardiac contraindication to the above-mentioned procedure. Pneumonia/sepsis: Deferred to Dr. Morris and Dr. Dubois. CAD. S/p CABG Feb [address] Guzman in [place], [place]. She had LEMUS to LAD, SVG to PDA, and sequential SVG to diagonal and OM. Last cardiac cath was on 07/12/15 and it showed multivessel CAD with patent SVG to distal RCA, patent LEMUS to distal LAD, and a sequential SVG with 50-60% mid-graft stenosis that was patent to first diag but occluded to OM. She underwent successful balloon angioplasty of the OM to which the graft was occluded. LVEF 60% on cath 07/12/15 with mild elevation of LVEDP Echocardiogram from January 03, 2015 showed LVEF 60%. Last echo of 04/19/16 showed LVEF 55-60%, mod diastolic dysfunction of LV, severe pulm htn with RVSP approx 72 mmHg Pulm htn, managed by Dr Dubois PAD. 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 Abdominal aortic aneurysm screening of February 2016 was negative for abdominal aortic aneurysm S/p radiation and chemo for right lung cancer in 2016, managed by Dr Contreras and Sherly H/o intermittent pneumonia Tobacco use quit in early 2012 Hypertension COPD with associated pulm hypertension Hyperlipidemia, controlled Hypothyroidism being treated with thyroid replacement therapy Carotid u/s from July 2014 showed minimal bilat carotid arterial disease without evidence of hemodynamic significance Mild hyperglycemia, suggestive of borderline DM II, on blood work of 07/12/15 Thank you for your consultation. Please call me if you have any questions. Paddy Funk MD, FACP, FACC, FSCAI, FHRS, CCDS Interventional Cardiology Cardiac Electrophysiology Vascular Medicine and Endovascular Interventions Clinical Quality Measures DVT/VTE Risk/Contraindication: Risk Factor Score Per Nursin RFS Level Per Nursing on Admit: 4+=Very High Contraindications-Pharm: Other *list below* Melanie FUNK MD May 15, 2017 10:38
--- NOTE | 2017-05-15 12:06 | Consultation ---
History of Present Illness History of Present Illness Patient Consulted On(ricardo/time) 05/15/17 09:20 Date Seen by Provider: May 15, 2017 Time Seen by Provider: 09:20 History of Present Illness consult for fall from Dr. Dubois for fall. Patient is a 72 year old female with recent hospitalization for pneumonia. Patient was at home and has home oxygen and tripped over the tubing landing on right side. She was on the floor. She did not have loss of consciousness. Patient is on Eliquis and her hgb was 5.6 and she was transfused 2 units of PRBC. She has pain in the right upper extremity by shoulder and right hip. Patient head ct was with no acute process. Radiology studies demonstrate a fracture of right humerus and right proximal femur fracture. Patient pain controlled. GCS 15. Allergies and Home Medications Allergies Coded Allergies: Penicillins (Verified Allergy, Severe, ANAPHYLAXIS, 09/04/16) hydrochlorothiazide (Verified Allergy, Intermediate, RASH, 01/29/17) penicillin G (Verified Allergy, Unknown, 09/04/16) Home Medications Acetaminophen with Codeine 1 Each Tablet, 1 TAB PO HS, (Reported) Albuterol Sulfate 2.5 Mg/3 Ml Vial.neb, 2.5 MG NEB 5XD PRN for SHORTNESS OF BREATH, (Reported) Alendronate Sodium 70 Mg Tablet, 70 MG PO Sa, (Reported) Apixaban 2.5 Mg Tablet, 2.5 MG PO BID, (Reported) Aspirin 81 Mg Tablet.dr, 81 MG PO 1300, (Reported) Atorvastatin Calcium 40 Mg Tablet, 40 MG PO HS, (Reported) Calcium Carbonate 1,177 Mg Tab.chew, 1,177 MG PO QID PRN for INDIGESTION, ( Reported) Calcium Carbonate/Vitamin D3 1 Each Tablet, 1 TAB PO DAILY, (Reported) Cetirizine HCl 10 Mg Tablet, 10 MG PO HS, (Reported) Diltiazem HCl 240 Mg Cap.er.24h, 240 MG PO DAILY, (Reported) Furosemide 20 Mg Tablet, 20 MG PO 1300, (Reported) Hydromorphone HCl 2 Mg Tablet, 2 MG PO Q4H PRN for PAIN-SEVERE, (Reported) Levothyroxine Sodium 50 Mcg Tablet, 50 MCG PO HS, (Reported) Metformin HCl 500 Mg Tablet, 500 MG PO BID WITH MEALS, (Reported) Metoprolol Tartrate 50 Mg Tablet, 50 MG PO BID, (Reported) Multivits,Stress Formula 1 Each Tablet, 1 TAB PO DAILY, (Reported) Nitroglycerin 0.4 Mg Tab.subl, 0.4 MG SL UD PRN for CHEST PAIN, (Reported) Pantoprazole Sodium 40 Mg Tablet.dr, 40 MG PO DAILY, (Reported) Promethazine HCl/Codeine 118 Ml Syrup, 10 ML PO TID PRN for COUGH, (Reported) Tiotropium [place] 4 Gm Mist.inhal, 2 PUFF IH DAILY, (Reported) Ubidecarenone 200 Mg Capsule, 200 MG PO HS, (Reported) Past Msetqtx-Uciadr-Bebotl Hx Patient Social History Alcohol Use: Denies Use Recreational Drug Use: No Smoking Status: Former Smoker Former Smoker, Quit: Jan 28, 2013 Type Used: Cigarettes Recent Foreign Travel: No Contact w/Someone Who Travel: No Recent Infectious Disease Expo: No Recent Hopitalizations: No Physical Abuse Screen: No Sexual Abuse: No Immunizations Up To Date Tetanus Booster (TDap): Unknown PED Vaccines UTD: Yes Date of Pneumonia Vaccine: Jan 07, 2016 Date of Influenza Vaccine: Jan 06, 2017 Seasonal Allergies Seasonal Allergies: Yes Surgeries History of Surgeries: Yes (CARDIAC CATH) Surgeries: CABG, Lobectomy, Vascular Surgery Respiratory History of Respiratory Disorde: Yes Respiratory Disorders: COPD Cardiovascular History of Cardiac Disorders: Yes (cabg with stents) Cardiac Disorders: Coronary Artery Disease, Hypertension, Peripheral Vascular Neurological History of Neurological Disord: Yes (ANXIETY) Reproductive System Hx Reproductive Disorders: Yes (26 YRS. 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 Disorders: Denies Genitourinary History of Genitourinary Disor: No Gastrointestinal History of Gastrointestinal Di: Yes ("BUTTERFLY" HERNIA) Musculoskeletal History of Musculoskeletal Dis: Yes Musculoskeletal Disorders: Arthritis Endocrine History of Endocrine Disorders: Yes HEENT History of HEENT Disorders: Yes HEENT Disorders: Cataract Loss of Vision: Denies Hearing Impairment: Denies Cancer History of Cancer: Yes Cancer: Lung Psychosocial History of Psychiatric Problem: Yes Behavioral Health Disorders: Anxiety Integumentary History of Skin or Integumenta: No Blood Transfusions History of Blood Disorders: No Adverse Reaction to a Blood Tr: No Reviewed Nursing Assessment Reviewed/Agree w Nursing PMH: Yes Family Medical History Significant Family History: No Pertinent Family Hx Family Medial History: Chest pain 09 SISTER Congestive heart failure G-MA Family history: Cardiovascular disease 03 FATHER (68) 09 SISTER Family history: Hypertension 03 FATHER 09 SISTER G-MA Stroke Review of Systems-General Constitutional: no symptoms reported EENTM: no symptoms reported Respiratory: see HPI Cardiovascular: no symptoms reported Gastrointestinal: no symptoms reported Genitourinary: no symptoms reported Musculoskeletal: see HPI Skin: change in color (echymosis) Psychiatric/Neurological: No Symptoms Reported Physical Exam-General Problems Physical Exam Vital Signs Vital Signs - First Documented 05/14/17 19:08 Temp 96.4 Pulse 117 Resp 20 B/P (MAP) 90/66 (74) Pulse Ox 93 O2 Delivery Room Air O2 Flow Rate 4.00 Capillary Refill : Less Than 3 SecondsLess Than 3 Seconds General Appearance: no apparent distress HEENT: PERRL/EOMI, normal ENT inspection Neck: non-tender, full range of motion, supple Respiratory: normal breath sounds, no respiratory distress, no accessory muscle use Cardiovascular: irregularly irregular Gastrointestinal: normal bowel sounds, non tender, soft, no organomegaly, no pulsatile mass Rectal: deferred Back: normal inspection, no CVA tenderness Extremities: other (right upper extremity with tenderness decreased range of motion due to pain, pulses intact. 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, no motor/sensory deficits, alert, normal mood/affect, oriented x 3 Skin: warm/dry, ecchymosis Lymphatic: no adenopathy Data Review Labs Laboratory Tests 05/14/17 19:57: White Blood Count 27.6H, Red Blood Count 2.89L, Hemoglobin 8.2L, Hematocrit 26L , Mean Corpuscular Volume 90, Mean Corpuscular Hemoglobin 28, Mean Corpuscular Hemoglobin Concent 32, Red Cell Distribution Width 15.9H, Platelet Count 416H, Mean Platelet Volume 10.4, Neutrophils (%) (Auto) 93H, Lymphocytes (%) (Auto) 2L , Monocytes (%) (Auto) 5, Eosinophils (%) (Auto) 0, Basophils (%) (Auto) 0, Neutrophils # (Auto) 25.8H, Lymphocytes # (Auto) 0.4L, Monocytes # (Auto) 1.4H, Eosinophils # (Auto) 0.0, Basophils # (Auto) 0.1, Neutrophils % (Manual) 95, Lymphocytes % (Manual) 0, Monocytes % (Manual) 3, Eosinophils % (Manual) 0, Basophils % (Manual) 0, Band Neutrophils 2, Hypochromasia SLIGHT, Spherocytes SLIGHT, Target Cells SLIGHT, Elliptocytes SLIGHT, Prothrombin Time 15.9H, INR Comment 1.3, Activated Partial Thromboplast Time 33, Sodium Level 129L, Potassium Level 5.1H, Chloride Level 84L, Carbon Dioxide Level 28, Anion Gap 17H , Blood Urea Nitrogen 36H, Creatinine 1.81H, Estimat Glomerular Filtration Rate 28, BUN/Creatinine Ratio 20, Glucose Level 333H, Lactic Acid Level 3.73*H, Calcium Level 8.5, Total Bilirubin 0.9, Aspartate Amino Transf (AST/SGOT) 35H, Alanine Aminotransferase (ALT/SGPT) 35, Alkaline Phosphatase 100, Total Creatine Kinase 309H, Total Protein 5.8L, Albumin 2.8L 05/14/17 20:14: Urine Color AMBERH, Urine Clarity SLIGHTLY CLOUDY, Urine pH 5, Urine Specific [place] 1.020, Urine Protein 2+H, Urine Glucose (UA) 4+H, Urine Ketones 1+H, Urine Nitrite NEGATIVE, Urine Bilirubin 1+H, Urine Urobilinogen 1, Urine Leukocyte Esterase 1+H, Urine RBC (Auto) 1+H, Urine RBC RARE, Urine WBC RARE, Urine Crystals PRESENTH, Urine Amorphous Sediment MOD DEBBIE URATESH, Urine Bacteria MODERATEH, Urine Casts NONE, Urine Mucus NEGATIVE, Urine Culture Indicated NO 05/14/17 22:09: Lactic Acid Level 1.01 05/14/17 23:57: Glucometer 285H 05/15/17 00:00: Sodium Level 134L, Potassium Level 4.3, Chloride Level 92L, Carbon Dioxide Level 29, Anion Gap 13, Blood Urea Nitrogen 35H, Creatinine 1.52H, Estimat Glomerular Filtration Rate 34, BUN/Creatinine Ratio 23, Glucose Level 279H, Calcium Level 7.3L, Phosphorus Level 3.8, Magnesium Level 1.5L 05/15/17 03:37: Glucometer 320H 05/15/17 05:05: Sodium Level 133L, Potassium Level 4.0, Chloride Level 96L, Carbon Dioxide Level 30, Anion Gap 7, Blood Urea Nitrogen 31H, Creatinine 1.26, Estimat Glomerular Filtration Rate 42, BUN/Creatinine Ratio 25, Glucose Level 252H, Calcium Level 6.9L, Phosphorus Level 3.6, Magnesium Level 2.2, White Blood Count 14.1H, Red Blood Count 2.00L, Hemoglobin 5.6#*L, Hematocrit 18*L, Mean Corpuscular Volume 88, Mean Corpuscular Hemoglobin 28, Mean Corpuscular Hemoglobin Concent 32, Red Cell Distribution Width 15.7H, Platelet Count 323, Mean Platelet Volume 9.7, Neutrophils (%) (Auto) 94H, Lymphocytes (%) (Auto) 3L , Monocytes (%) (Auto) 3, Eosinophils (%) (Auto) 0, Basophils (%) (Auto) 0, Neutrophils # (Auto) 13.2H, Lymphocytes # (Auto) 0.4L, Monocytes # (Auto) 0.5, Eosinophils # (Auto) 0.0, Basophils # (Auto) 0.0, Lactic Acid Level 1.46, Total Bilirubin 0.3, Aspartate Amino Transf (AST/SGOT) 35H, Alanine Aminotransferase ( ALT/SGPT) 29, Alkaline Phosphatase 71, Total Protein 4.0L, Albumin 2.0L 05/15/17 09:04: Glucometer 106 05/15/17 10:20: Glucometer 52*L 05/15/17 10:48: Glucometer 83 05/15/17 11:33: Glucometer 79 Assessment/Plan Assessment/Plan Assessment/Plan 72 year old female with fall from standing tripped over oxygen tubing right humerus and right proximal femur fracture acute blood loss anemia Eliquis on hold and transfuse as needed, continue to monitor hgb pneumonia copd squamous cell lung cancer no acute general surgical issues, continue medical management. Clinical Quality Measures DVT/VTE Risk/Contraindication: Risk Factor Score Per Nursin RFS Level Per Nursing on Admit: 4+=Very High Contraindications-Pharm: Other *list below* HELENE SIMON DO May 15, 2017 12:06
[2017-05-15 13:54] LABS: HEMOGLOBIN 9.2 G/DL (11.5-16.0)
[2017-05-15] MEDS ORDERED: D5W 500 ML IV SOLUTION 500 ML IV ONE (14:45)
[2017-05-15 18:56] LABS: HEMOGLOBIN 9.2 G/DL (11.5-16.0)
[2017-05-15] MEDS ORDERED: VANCOMYCIN 750 MG/NS 250 ML IVPB IV SCH ×2 (21:00)
[2017-05-15] MEDS ORDERED: VANCOMYCIN INJECTION 750 MG in NS (IVPB) 250 ML IV SCH (21:00)
[2017-05-16] VITALS (24 sets, daily range): BP systolic 134–172; BP diastolic 76–107
[2017-05-16 00:39] LABS: HEMOGLOBIN 9.2 G/DL (11.5-16.0)
[2017-05-16] MEDS: inSUlin (REGULAR) HUMAN 1 UNIT/0.01 ML (CHARGE PER UNIT) SC SCH ×6 (00:45→21:05)
[2017-05-16] MEDS: fentaNYL INJECTION 100 MCG/2 ML AMP IV PRN ×7 (02:30→23:01)
[2017-05-16] MEDS: NOREPINEPHRINE 4 MG in NS (IVPB) 250 ML IV SCH ×2 (02:30→18:26)
[2017-05-16] MEDS ORDERED: D5W 1000 ML IV SOLUTION 1,000 ML IV SCH (02:30)
[2017-05-16 04:34] LABS: BASOPHILS % (AUTO) 0 % (0-10); EOSINOPHILS # (AUTO) 0.1 10^3/uL (0.0-0.3); EOSINOPHILS % (AUTO) 1 % (0-10); HEMATOCRIT 28 % (35-52); HEMOGLOBIN 9.3 G/DL (11.5-16.0); LYMPHOCYTES # (AUTO) 0.3 X 10^3 (1.0-4.0); LYMPHOCYTES % (AUTO) 2 % (12-44); MEAN CORPUSCULAR HEMOGLOBIN 29 PG (25-34); MEAN CORPUSCULAR HGB CONC 34 G/DL (32-36); MEAN CORPUSCULAR VOLUME 87 FL (80-99); MEAN PLATELET VOLUME 9.7 FL (7.4-10.4); MONOCYTES # (AUTO) 0.7 X 10^3 (0.0-1.0); MONOCYTES % (AUTO) 5 % (0-12); NEUTROPHILS # (AUTO) 13.6 X 10^3 (1.8-7.8); NEUTROPHILS % (AUTO) 92 % (42-75); PLATELET COUNT 295 10^3/uL (130-400); RED BLOOD COUNT 3.17 10^6/uL (4.35-5.85); WHITE BLOOD COUNT 14.7 10^3/uL (4.3-11.0)
[2017-05-16 05:04] LABS: ALANINE AMINOTRANSFERASE 32 U/L (0-55); ALBUMIN 2.1 GM/DL (3.2-4.5); ALKALINE PHOSPHATASE 71 U/L (40-136); BILIRUBIN,TOTAL 0.7 MG/DL (0.1-1.0); BUN/CREATININE RATIO 24; CALCIUM 7.4 MG/DL (8.5-10.1); CARBON DIOXIDE 28 MMOL/L (21-32); CHLORIDE 94 MMOL/L (98-107); GFR ESTIMATED > 60; GLUCOSE 95 MG/DL (70-105); POTASSIUM 3.9 MMOL/L (3.6-5.0); SODIUM 129 MMOL/L (135-145); TOTAL PROTEIN 4.5 GM/DL (6.4-8.2)
[2017-05-16 05:15] LABS: MAGNESIUM 1.8 MG/DL (1.8-2.4); PHOSPHORUS 2.2 MG/DL (2.3-4.7)
[2017-05-16] MEDS: MAGNESIUM 1 GM/100 ML IVPB 100 ML IV SCH (05:35)
[2017-05-16] MEDS: KCL 20 MEQ TAB (K-DUR) PO SCH (05:35)
[2017-05-16] MEDS: POTASSIUM CL 10MEQ/50ML IVPB 50 ML IV SCH (05:35)
--- NOTE | 2017-05-16 06:20 | Pulmonary Progress Note ---
Subjective Time Seen by Provider: 06:30 Subjective/Events-last exam pt appears to be improved since yesterday. Exam Exam Vital Signs Date Time Temp Pulse Resp B/P (MAP) Pulse Ox O2 Delivery O2 Flow Rate FiO2 05/16/17 04:34 97.6 Nasal Cannula 4.00 05/16/17 04:00 89 15 139/82 (101) 96 Nasal Cannula 4.00 05/16/17 04:00 Nasal Cannula 4.00 05/16/17 03:00 94 15 143/102 (116) 96 Nasal Cannula 4.00 05/16/17 02:00 89 13 146/107 (120) 96 Nasal Cannula 4.00 05/16/17 01:00 99 05/16/17 01:00 100 21 153/89 (110) 96 Nasal Cannula 4.00 05/16/17 00:00 93 14 135/101 (112) 97 Nasal Cannula 4.00 05/16/17 00:00 Nasal Cannula 4.00 05/15/17 23:34 98.7 Nasal Cannula 4.00 05/15/17 23:00 90 15 154/88 (110) 97 Nasal Cannula 4.00 05/15/17 22:00 98 19 166/90 (115) 95 Nasal Cannula 4.00 05/15/17 21:00 94 17 157/85 (109) 95 Nasal Cannula 4.00 05/15/17 20:00 101 20 158/84 (108) 96 Nasal Cannula 4.00 05/15/17 20:00 98.3 Nasal Cannula 4.00 05/15/17 20:00 Nasal Cannula 4.00 05/15/17 19:00 94 05/15/17 19:00 96 25 141/84 (103) 96 Nasal Cannula 4.00 05/15/17 18:00 Nasal Cannula 4.00 05/15/17 18:00 96 25 141/82 (101) 94 Nasal Cannula 4.00 05/15/17 17:00 87 26 159/81 (107) 95 Nasal Cannula 4.00 05/15/17 16:10 98.4 05/15/17 16:05 Nasal Cannula 4.00 05/15/17 16:00 98 22 142/79 (100) 96 Nasal Cannula 4.00 05/15/17 15:00 98 20 138/87 (104) 94 Nasal Cannula 4.00 05/15/17 14:00 89 18 138/80 (99) 96 Nasal Cannula 4.00 05/15/17 13:12 98.1 93 155/89 05/15/17 13:00 98 23 150/78 (102) 98 Nasal Cannula 4.00 05/15/17 13:00 88 05/15/17 12:45 Nasal Cannula 4.00 05/15/17 12:03 98.2 05/15/17 12:00 101 14 124/93 (103) 98 Nasal Cannula 4.00 05/15/17 11:00 90 17 146/73 (97) 97 Nasal Cannula 4.00 05/15/17 10:20 96.4 89 20 144/75 96 Nasal Cannula 4.00 05/15/17 10:02 96.7 92 20 126/71 98 Nasal Cannula 4.00 05/15/17 10:00 90 17 126/71 (89) 99 Nasal Cannula 4.00 05/15/17 09:09 96.7 94 18 117/63 99 Nasal Cannula 4.00 05/15/17 09:00 Nasal Cannula 4.00 05/15/17 09:00 86 18 99/60 (73) 100 Nasal Cannula 4.00 05/15/17 08:36 97.1 98 18 117/62 (80) 96 Nasal Cannula 4.00 05/15/17 08:00 93 16 112/65 (81) 97 Nasal Cannula 4.00 05/15/17 07:00 97 05/15/17 07:00 97 18 110/60 (77) 97 Nasal Cannula 4.00 05/15/17 06:45 Nasal Cannula 4.00 05/15/17 06:33 98.4 101 19 105/62 99 Nasal Cannula 6.00 I & O 05/16/17 07:00 Intake Total 3252 ml Output Total 1000 ml Balance 2252 ml General Appearance: No Apparent Distress, Thin HEENT: Normal ENT Inspection Neck: Full Range of Motion, Normal Inspection Respiratory: No Accessory Muscle Use, No Respiratory Distress, Decreased Breath Sounds Cardiovascular: Regular Rate, Rhythm, No Murmur Capillary Refill: Less Than 3 Seconds Extremity: Other (Fractured right hip and shoulder) Neurologic/Psychiatric: Alert, Oriented x3, Normal Mood/Affect Results Lab Laboratory Tests 05/14/17 19:57 05/15/17 00:00 05/15/17 05:05 05/15/17 13:40 05/15/17 18:44 05/16/17 00:25 05/16/17 04:20 Assessment/Plan Assessment/Plan S/P Fall with right hip and Right Humerus fracture -Ortho is consulted -Consult trauma surgeon -acute blood loss - now stable -US RUE -S/P 2 units of PRBC typed and crossed Severe Sepsis with pneumonia - much improved -Continue broadspectrum Abx -Landeros culture pending Hypotension- resolved -IVF 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 Pt is moderate risk of pulmonary complications post op however her pulmonary status is at her baseline status. ok to proceed with surgery from my standpoint. I will continue to follow after surgery. 233 Clinical Quality Measures DVT/VTE Risk/Contraindication: Risk Factor Score Per Nursin RFS Level Per Nursing on Admit: 4+=Very High Contraindications-Pharm: Other *list below* ALTAGRACIA WALLACE DO May 16, 2017 06:20
[2017-05-16] MEDS ORDERED: D5 NS 1000 ML IV SOLUTION 1,000 ML IV SCH (06:30)
[2017-05-16] MEDS ORDERED: SODIUM PHOSPHATE INJ 30 MM in NS (IVPB) 250 ML IV ONE (06:30)
--- NOTE | 2017-05-16 07:32 | Progress Note (SOAP) ---
Subjective Time Seen by Provider: 07:30 Subjective/Events-last exam Besides hurting patient doing better. Hyponatremia sodium 129. Chest x-ray shows a little worse. Sugars better. Blood pressure better. Patient to have surgery this afternoon Objective Exam Vital Signs Date Time Temp Pulse Resp B/P (MAP) Pulse Ox O2 Delivery O2 Flow Rate FiO2 05/16/17 06:00 89 16 139/82 (101) 96 Nasal Cannula 4.00 05/16/17 05:00 83 13 144/82 (102) 96 Nasal Cannula 4.00 05/16/17 04:34 97.6 Nasal Cannula 4.00 05/16/17 04:00 89 15 139/82 (101) 96 Nasal Cannula 4.00 05/16/17 04:00 Nasal Cannula 4.00 05/16/17 03:00 94 15 143/102 (116) 96 Nasal Cannula 4.00 05/16/17 02:00 89 13 146/107 (120) 96 Nasal Cannula 4.00 05/16/17 01:00 99 05/16/17 01:00 100 21 153/89 (110) 96 Nasal Cannula 4.00 05/16/17 00:00 93 14 135/101 (112) 97 Nasal Cannula 4.00 05/16/17 00:00 Nasal Cannula 4.00 05/15/17 23:34 98.7 Nasal Cannula 4.00 05/15/17 23:00 90 15 154/88 (110) 97 Nasal Cannula 4.00 05/15/17 22:00 98 19 166/90 (115) 95 Nasal Cannula 4.00 05/15/17 21:00 94 17 157/85 (109) 95 Nasal Cannula 4.00 05/15/17 20:00 101 20 158/84 (108) 96 Nasal Cannula 4.00 05/15/17 20:00 98.3 Nasal Cannula 4.00 05/15/17 20:00 Nasal Cannula 4.00 05/15/17 19:00 94 05/15/17 19:00 96 25 141/84 (103) 96 Nasal Cannula 4.00 05/15/17 18:00 Nasal Cannula 4.00 05/15/17 18:00 96 25 141/82 (101) 94 Nasal Cannula 4.00 05/15/17 17:00 87 26 159/81 (107) 95 Nasal Cannula 4.00 05/15/17 16:10 98.4 05/15/17 16:05 Nasal Cannula 4.00 05/15/17 16:00 98 22 142/79 (100) 96 Nasal Cannula 4.00 05/15/17 15:00 98 20 138/87 (104) 94 Nasal Cannula 4.00 05/15/17 14:00 89 18 138/80 (99) 96 Nasal Cannula 4.00 05/15/17 13:12 98.1 93 155/89 05/15/17 13:00 98 23 150/78 (102) 98 Nasal Cannula 4.00 05/15/17 13:00 88 05/15/17 12:45 Nasal Cannula 4.00 05/15/17 12:03 98.2 05/15/17 12:00 101 14 124/93 (103) 98 Nasal Cannula 4.00 05/15/17 11:00 90 17 146/73 (97) 97 Nasal Cannula 4.00 05/15/17 10:20 96.4 89 20 144/75 96 Nasal Cannula 4.00 05/15/17 10:02 96.7 92 20 126/71 98 Nasal Cannula 4.00 05/15/17 10:00 90 17 126/71 (89) 99 Nasal Cannula 4.00 05/15/17 09:09 96.7 94 18 117/63 99 Nasal Cannula 4.00 05/15/17 09:00 Nasal Cannula 4.00 05/15/17 09:00 86 18 99/60 (73) 100 Nasal Cannula 4.00 05/15/17 08:36 97.1 98 18 117/62 (80) 96 Nasal Cannula 4.00 05/15/17 08:00 93 16 112/65 (81) 97 Nasal Cannula 4.00 I & O 05/16/17 07:00 Intake Total 4217 ml Output Total 1600 ml Balance 2617 ml Capillary Refill : Less Than 3 SecondsLess Than 3 Seconds General Appearance: No Apparent Distress, Thin HEENT: Normal ENT Inspection Neck: Full Range of Motion Respiratory: No Accessory Muscle Use, No Respiratory Distress, Decreased Breath Sounds Cardiovascular: Regular Rate, Rhythm, No Murmur Gastrointestinal: non tender, soft Results Lab Laboratory Tests 05/15/17 13:40 05/15/17 18:44 05/16/17 00:25 05/16/17 04:20 Laboratory Tests 05/15/17 08:27: Glucometer 34*L 05/15/17 09:04: Glucometer 106 05/15/17 10:20: Glucometer 52*L 05/15/17 10:48: Glucometer 83 05/15/17 11:33: Glucometer 79 05/15/17 12:07: Lab Scanned Report Transfusion Reaction Form 05/15/17 12:29: Glucometer 77 05/15/17 13:40: Hemoglobin 9.2#L, Hematocrit 27L 05/15/17 14:31: Glucometer 58*L 05/15/17 15:27: Glucometer 63L 05/15/17 16:25: Glucometer 60*L 05/15/17 17:57: Glucometer 58*L 05/15/17 18:44: Hemoglobin 9.2L, Hematocrit 27L 05/15/17 18:52: Glucometer 81 05/15/17 20:09: Glucometer 144H 05/15/17 20:59: Glucometer 112H 05/15/17 23:02: Glucometer 116H 05/16/17 00:25: Hemoglobin 9.2L, Hematocrit 28L 05/16/17 04:20: Hemoglobin 9.3L, Hematocrit 28L, White Blood Count 14.7H, Red Blood Count 3.17L , Mean Corpuscular Volume 87, Mean Corpuscular Hemoglobin 29, Mean Corpuscular Hemoglobin Concent 34, Red Cell Distribution Width 15.0H, Platelet Count 295, Mean Platelet Volume 9.7, Neutrophils (%) (Auto) 92H, Lymphocytes (%) (Auto) 2L , Monocytes (%) (Auto) 5, Eosinophils (%) (Auto) 1, Basophils (%) (Auto) 0, Neutrophils # (Auto) 13.6H, Lymphocytes # (Auto) 0.3L, Monocytes # (Auto) 0.7, Eosinophils # (Auto) 0.1, Basophils # (Auto) 0.0, Sodium Level 129L, Potassium Level 3.9, Chloride Level 94L, Carbon Dioxide Level 28, Anion Gap 7, Blood Urea Nitrogen 17, Creatinine 0.70, Estimat Glomerular Filtration Rate > 60, BUN/ Creatinine Ratio 24, Glucose Level 95, Calcium Level 7.4L, Phosphorus Level 2.2L , Magnesium Level 1.8, Total Bilirubin 0.7, Aspartate Amino Transf (AST/SGOT) 37H, Alanine Aminotransferase (ALT/SGPT) 32, Alkaline Phosphatase 71, Total Protein 4.5L, Albumin 2.1L Microbiology 05/14/17 Blood Culture - Preliminary, Resulted No growth 05/14/17 MRSA Screen - Final, Complete MRSA not isolated Assessment/Plan Assessment/Plan Assess & Plan/Chief Complaint Sepsis with pneumonia. fall Acute blood loss. Hypotension resolved. COPD with acute exacerbation. Squamous cell lung cancer. Patient to have hip surgery today. Patient has hip fracture and shoulder fracture Clinical Quality Measures DVT/VTE Risk/Contraindication: Risk Factor Score Per Nursin RFS Level Per Nursing on Admit: 4+=Very High Contraindications-Pharm: Other *list below* WEST MCCAULEY DO May 16, 2017 07:32
[2017-05-16] MEDS ORDERED: ACETAMINOPHEN 325 MG TABLET/CAPLET (TYLENOL) ONE (07:40)
[2017-05-16] MEDS: CEFEPIME 1 GM/NS 50 ML IV SCH ×2 (07:42)
[2017-05-16] MEDS ORDERED: ACETAMINOPHEN 500 MG TAB (TYLENOL) PO PRN (07:45)
--- NOTE | 2017-05-16 07:47 | Progress Note-Standard ---
Standard Progress Note Progress Notes/Assess & Plan Date Seen by Provider: May 16, 2017 Time Seen by Provider: 07:45 Progress/Assessment & Plan Pt. feeling better Vital Signs Date Time Temp Pulse Resp B/P (MAP) Pulse Ox O2 Delivery O2 Flow Rate FiO2 05/16/17 06:00 89 16 139/82 (101) 96 Nasal Cannula 4.00 05/16/17 05:00 83 13 144/82 (102) 96 Nasal Cannula 4.00 05/16/17 04:34 97.6 Nasal Cannula 4.00 05/16/17 04:00 89 15 139/82 (101) 96 Nasal Cannula 4.00 05/16/17 04:00 Nasal Cannula 4.00 05/16/17 03:00 94 15 143/102 (116) 96 Nasal Cannula 4.00 05/16/17 02:00 89 13 146/107 (120) 96 Nasal Cannula 4.00 05/16/17 01:00 99 05/16/17 01:00 100 21 153/89 (110) 96 Nasal Cannula 4.00 05/16/17 00:00 93 14 135/101 (112) 97 Nasal Cannula 4.00 05/16/17 00:00 Nasal Cannula 4.00 05/15/17 23:34 98.7 Nasal Cannula 4.00 05/15/17 23:00 90 15 154/88 (110) 97 Nasal Cannula 4.00 05/15/17 22:00 98 19 166/90 (115) 95 Nasal Cannula 4.00 05/15/17 21:00 94 17 157/85 (109) 95 Nasal Cannula 4.00 05/15/17 20:00 101 20 158/84 (108) 96 Nasal Cannula 4.00 05/15/17 20:00 98.3 Nasal Cannula 4.00 05/15/17 20:00 Nasal Cannula 4.00 05/15/17 19:00 94 05/15/17 19:00 96 25 141/84 (103) 96 Nasal Cannula 4.00 05/15/17 18:00 Nasal Cannula 4.00 05/15/17 18:00 96 25 141/82 (101) 94 Nasal Cannula 4.00 05/15/17 17:00 87 26 159/81 (107) 95 Nasal Cannula 4.00 05/15/17 16:10 98.4 05/15/17 16:05 Nasal Cannula 4.00 05/15/17 16:00 98 22 142/79 (100) 96 Nasal Cannula 4.00 05/15/17 15:00 98 20 138/87 (104) 94 Nasal Cannula 4.00 05/15/17 14:00 89 18 138/80 (99) 96 Nasal Cannula 4.00 05/15/17 13:12 98.1 93 155/89 05/15/17 13:00 98 23 150/78 (102) 98 Nasal Cannula 4.00 05/15/17 13:00 88 05/15/17 12:45 Nasal Cannula 4.00 05/15/17 12:03 98.2 05/15/17 12:00 101 14 124/93 (103) 98 Nasal Cannula 4.00 05/15/17 11:00 90 17 146/73 (97) 97 Nasal Cannula 4.00 05/15/17 10:20 96.4 89 20 144/75 96 Nasal Cannula 4.00 05/15/17 10:02 96.7 92 20 126/71 98 Nasal Cannula 4.00 05/15/17 10:00 90 17 126/71 (89) 99 Nasal Cannula 4.00 05/15/17 09:09 96.7 94 18 117/63 99 Nasal Cannula 4.00 05/15/17 09:00 Nasal Cannula 4.00 05/15/17 09:00 86 18 99/60 (73) 100 Nasal Cannula 4.00 05/15/17 08:36 97.1 98 18 117/62 (80) 96 Nasal Cannula 4.00 05/15/17 08:00 93 16 112/65 (81) 97 Nasal Cannula 4.00 I & O 05/16/17 07:00 Intake Total 4217 ml Output Total 1600 ml Balance 2617 ml Laboratory Tests Test 05/15/17 08:27 05/15/17 09:04 05/15/17 10:20 05/15/17 10:48 Range/Units Glucometer 34 *L 106 52 *L 83 70-110 MG/DL Test 05/15/17 11:33 05/15/17 12:07 05/15/17 12:29 05/15/17 13:40 Range/Units Glucometer 79 77 70-110 MG/DL Lab Scanned Report Transfusion Reaction Form [id number] Hemoglobin 9.2 #L 11.5-16.0 G/DL Hematocrit 27 L 35-52 % Test 05/15/17 14:31 05/15/17 15:27 05/15/17 16:25 05/15/17 17:57 Range/Units Glucometer 58 *L 63 L 60 *L 58 *L 70-110 MG/DL Test 05/15/17 18:44 05/15/17 18:52 05/15/17 20:09 05/15/17 20:59 Range/Units Hemoglobin 9.2 L 11.5-16.0 G/DL Hematocrit 27 L 35-52 % Glucometer 81 144 H 112 H 70-110 MG/DL Test 05/15/17 23:02 05/16/17 00:25 05/16/17 04:20 Range/Units Glucometer 116 H 70-110 MG/DL Hemoglobin 9.2 L 9.3 L 11.5-16.0 G/DL Hematocrit 28 L 28 L 35-52 % White Blood Count 14.7 H 4.3-11.0 10^3/uL Red Blood Count 3.17 L 4.35-5.85 10^6/uL Mean Corpuscular Volume 87 80-99 FL Mean Corpuscular Hemoglobin 29 25-34 PG Mean Corpuscular Hemoglobin Concent 34 32-36 G/DL Red Cell Distribution Width 15.0 H 10.0-14.5 % Platelet Count 295 130-400 10^3/uL Mean Platelet Volume 9.7 7.4-10.4 FL Neutrophils (%) (Auto) 92 H 42-75 % Lymphocytes (%) (Auto) 2 L 12-44 % Monocytes (%) (Auto) 5 0-12 % Eosinophils (%) (Auto) 1 0-10 % Basophils (%) (Auto) 0 0-10 % Neutrophils # (Auto) 13.6 H 1.8-7.8 X 10^3 Lymphocytes # (Auto) 0.3 L 1.0-4.0 X 10^3 Monocytes # (Auto) 0.7 0.0-1.0 X 10^3 Eosinophils # (Auto) 0.1 0.0-0.3 10^3/uL Basophils # (Auto) 0.0 0.0-0.1 10^3/uL Sodium Level 129 L 135-145 MMOL/L Potassium Level 3.9 3.6-5.0 MMOL/L Chloride Level 94 L 98-107 MMOL/L Carbon Dioxide Level 28 21-32 MMOL/L Anion Gap 7 5-14 MMOL/L Blood Urea Nitrogen 17 7-18 MG/DL Creatinine 0.70 0.60-1.30 MG/DL Estimat Glomerular Filtration Rate > 60 BUN/Creatinine Ratio 24 Glucose Level 95 70-105 MG/DL Calcium Level 7.4 L 8.5-10.1 MG/DL Phosphorus Level 2.2 L 2.3-4.7 MG/DL Magnesium Level 1.8 1.8-2.4 MG/DL Total Bilirubin 0.7 0.1-1.0 MG/DL Aspartate Amino Transf (AST/SGOT) 37 H 5-34 U/L Alanine Aminotransferase (ALT/SGPT) 32 0-55 U/L Alkaline Phosphatase 71 40-136 U/L Total Protein 4.5 L 6.4-8.2 GM/DL Albumin 2.1 L 3.2-4.5 GM/DL RLE--nvi distally. RUE decreased echymosis and swelling R IT femur fx and R surgical neck of humerus fx plan for ORIF R hip later today pt would like to go to [facility] for recovery CARMEN CORDERO MD May 16, 2017 07:47
--- NOTE | 2017-05-16 10:38 | Diagnostic Imaging Report ---
INDICATION: Pneumonia. TECHNIQUE: Single view chest 4:12 AM. CORRELATION STUDY: 05/15/2017 FINDINGS: Infiltrate and effusion in the right lung base, generally stable. The left lung with chronic changes as well as surgical changes. Heart size and mediastinal structures are unchanged. Right-sided line unchanged. IMPRESSION: 1. No appreciable change in the combination of effusion along with infiltrates to the right lung base. Findings are superimposed on chronic lung disease. Dictated by: Dictated on workstation # [id number]
--- NOTE | 2017-05-16 11:26 | Cardiology Progress Note ---
Cardiology SOAP Progress Note Subjective: No cardiac complaints. Objective: I&O/Vital Signs Vital Sign - Last 12Hours 05/16/17 05/16/17 05/16/17 05/16/17 07:00 08:00 08:00 09:00 Pulse 87 137 85 Resp 14 19 11 B/P (MAP) 151/90 (110) 145/92 (109) 140/78 (98) Pulse Ox 97 96 95 O2 Delivery Nasal Cannula Nasal Cannula Nasal Cannula Nasal Cannula O2 Flow Rate 4.00 4.00 4.00 4.00 05/16/17 05/16/17 05/16/17 05/16/17 10:00 11:00 12:00 13:00 Temp 99.0 Pulse 92 92 86 87 Resp 15 13 13 B/P (MAP) 142/76 (98) 145/79 (101) 138/76 (96) Pulse Ox 95 9 97 O2 Delivery Nasal Cannula Nasal Cannula Nasal Cannula O2 Flow Rate 4.00 4.00 4.00 05/16/17 05/16/17 05/16/17 05/16/17 13:00 14:00 15:00 18:00 Pulse 89 99 98 98 Resp 18 19 23 11 B/P (MAP) 139/79 (99) 137/88 (104) 145/100 (115) 171/91 (117) Pulse Ox 98 94 92 92 O2 Delivery Nasal Cannula Nasal Cannula Nasal Cannula Nasal Cannula O2 Flow Rate 4.00 4.00 4.00 4.00 Intake and Output 05/16/17 00:00 Intake Total 2194 ml Output Total 600 ml Balance 1594 ml Weight (Pounds): 114 Weight (Ounces): 0.0 Weight (Calculated Kilograms): [id number] Constitutional: AAO x 3 Respiratory: lungs clear to percussion, lungs clear to auscultation Cardiovascular: regular rate-rhythm, S1 and S2 Gastrointestional: No tender, No soft, No round, No distended, No pulsatile mass, No organomegaly, No guarding, No rebound, No tenderness, No hernia, No mass, No audible bowel sounds, No abnormal bowel sounds, No abdominal bruits, No spleenomegaly, No other Extremities: tenderness Neurologic/Psychiatric: No florist helper II-XII nml as tested, No no motor/sensory deficits, alert, normal mood/affect, oriented x 3, No abnormal cerebellar tests , No abnormal florist helper II-XII, No abnormal gait, No aphasia, No EOM palsy, No facial droop, No motor weakness, No sensory deficit, No depressed affect, No disoriented x 3, No other, No grossly intact, No power is 5/5 both on sides Skin: No normal color, No warm/dry, No cyanosis, No cool, No diaphoresis, No damp, ecchymosis (significant ecchymosis from the elbow to about shoulder on the right. Multiple other small bruises throughout the body.), No jaundice, No mottled, No pallor, No rash, No tattoos/piercings, No ulcerations, No rash on exposed areas, No ulcerations on exposed areas, No other Results/Procedures: Labs Laboratory Tests 05/15/17 18:44: Hemoglobin 9.2L, Hematocrit 27L 05/15/17 18:52: Glucometer 81 05/15/17 20:09: Glucometer 144H 05/15/17 20:59: Glucometer 112H 05/15/17 23:02: Glucometer 116H 05/16/17 00:25: Hemoglobin 9.2L, Hematocrit 28L 05/16/17 04:20: Hemoglobin 9.3L, Hematocrit 28L, White Blood Count 14.7H, Red Blood Count 3.17L , Mean Corpuscular Volume 87, Mean Corpuscular Hemoglobin 29, Mean Corpuscular Hemoglobin Concent 34, Red Cell Distribution Width 15.0H, Platelet Count 295, Mean Platelet Volume 9.7, Neutrophils (%) (Auto) 92H, Lymphocytes (%) (Auto) 2L , Monocytes (%) (Auto) 5, Eosinophils (%) (Auto) 1, Basophils (%) (Auto) 0, Neutrophils # (Auto) 13.6H, Lymphocytes # (Auto) 0.3L, Monocytes # (Auto) 0.7, Eosinophils # (Auto) 0.1, Basophils # (Auto) 0.0, Sodium Level 129L, Potassium Level 3.9, Chloride Level 94L, Carbon Dioxide Level 28, Anion Gap 7, Blood Urea Nitrogen 17, Creatinine 0.70, Estimat Glomerular Filtration Rate > 60, BUN/ Creatinine Ratio 24, Glucose Level 95, Calcium Level 7.4L, Phosphorus Level 2.2L , Magnesium Level 1.8, Total Bilirubin 0.7, Aspartate Amino Transf (AST/SGOT) 37H, Alanine Aminotransferase (ALT/SGPT) 32, Alkaline Phosphatase 71, B-Type Natriuretic Peptide 236.4H, Total Protein 4.5L, Albumin 2.1L 05/16/17 08:00: Glucometer 122H Microbiology 05/14/17 Blood Culture - Preliminary, Resulted No growth 05/14/17 MRSA Screen - Final, Complete MRSA not isolated A/P: Assessment/Dx: Hip and right arm fracture. Right lower lobe pneumonia/sepsis CAD/CABG, Paroxysmal atrial fibrillation, Diastolic dysfunction, Tricuspid regurgitation Plan: Hip fracture: Likely hip surgery today. Patient is at moderate risk for perioperative major adverse cardiac events undergoing an intermediate risk non- cardiac surgery. There is no cardiac contraindication to the above-mentioned procedure. Pneumonia/sepsis: Deferred to Dr. Morris and Dr. Dubois. CAD. S/p CABG Feb [address] Guzman in [place], [place]. She had LEMUS to LAD, SVG to PDA, and sequential SVG to diagonal and OM. Last cardiac cath was on 07/12/15 and it showed multivessel CAD with patent SVG to distal RCA, patent LEMUS to distal LAD, and a sequential SVG with 50-60% mid-graft stenosis that was patent to first diag but occluded to OM. She underwent successful balloon angioplasty of the OM to which the graft was occluded. LVEF 60% on cath 07/12/15 with mild elevation of LVEDP Echocardiogram from January 03, 2015 showed LVEF 60%. Last echo of 04/19/16 showed LVEF 55-60%, mod diastolic dysfunction of LV, severe pulm htn with RVSP approx 72 mmHg Pulm htn, managed by Dr Dubois PAD. 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 Abdominal aortic aneurysm screening of February 2016 was negative for abdominal aortic aneurysm S/p radiation and chemo for right lung cancer in mid 2016, managed by Dr Contreras and Sherly H/o intermittent pneumonia Tobacco use quit in early 2012 Hypertension COPD with associated pulm hypertension Hyperlipidemia, controlled Hypothyroidism being treated with thyroid replacement therapy Carotid u/s from July 2014 showed minimal bilat carotid arterial disease without evidence of hemodynamic significance Mild hyperglycemia, suggestive of borderline DM II, on blood work of 07/12/15 Thank you for your consultation. Please call me if you have any questions. Paddy Funk MD, FACP, FACC, FSCAI, FHRS, CCDS Interventional Cardiology Cardiac Electrophysiology Vascular Medicine and Endovascular Interventions Melanie FUNK MD May 16, 2017 11:26
[2017-05-16] MEDS ORDERED: ACETAMINOPHEN 325 MG TABLET/CAPLET (TYLENOL) PO PRN ×2 (11:45→15:45)
--- NOTE | 2017-05-16 15:16 | Progress Note-Pre Operative ---
Pre-Operative Progress Note H&P Reviewed The H&P was reviewed, patient examined and no changes noted. Date Seen by Provider: May 16, 2017 Time Seen by Provider: 15:16 Date H&P Reviewed: May 16, 2017 Time H&P Reviewed: 15:16 Pre-Operative Diagnosis: right displaced, closed intertrochanteric femur fracture CARMEN CORDERO MD May 16, 2017 15:16
--- NOTE | 2017-05-16 15:18 | Progress Note-Post Operative ---
Post-Operative Progess Note Surgeon (s)/Battery Loader (s) Surgeon CARMEN CORDERO MD Battery Loader: Paul Serrato Pre-Operative Diagnosis right displaced, closed intertrochanteric femur fracture Post-Operative Diagnosis right displaced, closed intertorchanteric femur fracture Procedure & Operative Findings Date of Procedure 05/16/17 Procedure Performed/Findings right proximal femur intramedullary nail Anesthesia Type GETA Estimated Blood Loss Estimated blood loss (mL): 100 ml Specimens/Packing Specimens Removed none Packing: none CARMEN CORDERO MD May 16, 2017 15:18
[2017-05-16] MEDS ORDERED: ONDANSETRON 4 MG/2 ML (SDV) Z0FRAN ONE (15:30)
[2017-05-16] MEDS ORDERED: SEVOFLURANE (ULTANE) 15 ML INHAL SOLN ONE (15:30)
[2017-05-16] MEDS ORDERED: fentaNYL INJECTION 100 MCG/2 ML AMP ONE (15:31)
[2017-05-16] MEDS ORDERED: proPOfol 200 MG/20 ML (DIPRIVAN) VIAL IV ONE (15:31)
[2017-05-16] MEDS ORDERED: LIDOCAINE PF 2% 5 ML (XYLOCAINE) VIAL ONE (15:31)
[2017-05-16] MEDS ORDERED: fentaNYL INJECTION 100 MCG/2 ML AMP IVP PRN (15:45)
[2017-05-16] MEDS: LACTATED RINGERS 1,000 ML IV SCH ×2 (15:58→20:22)
[2017-05-16] MEDS ORDERED: ceFAZolin 1,000 MG (ANCEF) VIAL ONE (16:04)
[2017-05-16] MEDS ORDERED: ceFAZolin INJECTION 1,000 MG in NS (IVPB) 50 ML IV ONE (16:15)
[2017-05-16] MEDS ORDERED: BUPIVACAINE 0.5% 30 ML (SENSORCAINE) VIAL ONE (16:16)
--- NOTE | 2017-05-16 16:32 | Progress Note ---
Subjective Date Seen by Provider: May 16, 2017 Time Seen by Provider: 08:24 Subjective/Events-last exam Patient pain controlled. Hgb stable. Plan for ortho surgical intervention today. No new complaints. NPO Objective Exam Vital Signs Date Time Temp Pulse Resp B/P (MAP) Pulse Ox O2 Delivery O2 Flow Rate FiO2 05/16/17 15:00 98 23 145/100 (115) 92 Nasal Cannula 4.00 05/16/17 14:00 99 19 137/88 (104) 94 Nasal Cannula 4.00 05/16/17 13:00 89 18 139/79 (99) 98 Nasal Cannula 4.00 05/16/17 13:00 87 05/16/17 12:00 86 13 138/76 (96) 97 Nasal Cannula 4.00 05/16/17 11:00 99.0 92 13 145/79 (101) 9 Nasal Cannula 4.00 05/16/17 10:00 92 15 142/76 (98) 95 Nasal Cannula 4.00 05/16/17 09:00 85 11 140/78 (98) 95 Nasal Cannula 4.00 05/16/17 08:00 137 19 145/92 (109) 96 Nasal Cannula 4.00 05/16/17 08:00 Nasal Cannula 4.00 05/16/17 07:00 87 14 151/90 (110) 97 Nasal Cannula 4.00 05/16/17 06:00 89 16 139/82 (101) 96 Nasal Cannula 4.00 05/16/17 05:00 83 13 144/82 (102) 96 Nasal Cannula 4.00 05/16/17 04:34 97.6 Nasal Cannula 4.00 05/16/17 04:00 89 15 139/82 (101) 96 Nasal Cannula 4.00 05/16/17 04:00 Nasal Cannula 4.00 05/16/17 03:00 94 15 143/102 (116) 96 Nasal Cannula 4.00 05/16/17 02:00 89 13 146/107 (120) 96 Nasal Cannula 4.00 05/16/17 01:00 99 05/16/17 01:00 100 21 153/89 (110) 96 Nasal Cannula 4.00 05/16/17 00:00 93 14 135/101 (112) 97 Nasal Cannula 4.00 05/16/17 00:00 Nasal Cannula 4.00 05/15/17 23:34 98.7 Nasal Cannula 4.00 05/15/17 23:00 90 15 154/88 (110) 97 Nasal Cannula 4.00 05/15/17 22:00 98 19 166/90 (115) 95 Nasal Cannula 4.00 05/15/17 21:00 94 17 157/85 (109) 95 Nasal Cannula 4.00 05/15/17 20:00 101 20 158/84 (108) 96 Nasal Cannula 4.00 05/15/17 20:00 98.3 Nasal Cannula 4.00 05/15/17 20:00 Nasal Cannula 4.00 05/15/17 19:00 94 05/15/17 19:00 96 25 141/84 (103) 96 Nasal Cannula 4.00 05/15/17 18:00 Nasal Cannula 4.00 05/15/17 18:00 96 25 141/82 (101) 94 Nasal Cannula 4.00 05/15/17 17:00 87 26 159/81 (107) 95 Nasal Cannula 4.00 I & O 05/16/17 07:00 Intake Total 4217 ml Output Total 1600 ml Balance 2617 ml Capillary Refill : Less Than 3 SecondsLess Than 3 Seconds General Appearance: No Apparent Distress, Thin HEENT: Normal ENT Inspection Neck: Full Range of Motion Respiratory: No Accessory Muscle Use, No Respiratory Distress, Decreased Breath Sounds Cardiovascular: Irregularly Irregular Gastrointestinal: normal bowel sounds, non tender, soft, no organomegaly, no pulsatile mass Extremity: Other (Fractured right hip and shoulder, echymosis right upper extremity) Neurologic/Psychiatric: Alert, Oriented x3, Normal Mood/Affect Skin: Warm/Dry Lymphatic: No Adenopathy Results Lab Laboratory Tests 05/15/17 17:57: Glucometer 58*L 05/15/17 18:44: Hemoglobin 9.2L, Hematocrit 27L 05/15/17 18:52: Glucometer 81 05/15/17 20:09: Glucometer 144H 05/15/17 20:59: Glucometer 112H 05/15/17 23:02: Glucometer 116H 05/16/17 00:25: Hemoglobin 9.2L, Hematocrit 28L 05/16/17 04:20: Hemoglobin 9.3L, Hematocrit 28L, White Blood Count 14.7H, Red Blood Count 3.17L , Mean Corpuscular Volume 87, Mean Corpuscular Hemoglobin 29, Mean Corpuscular Hemoglobin Concent 34, Red Cell Distribution Width 15.0H, Platelet Count 295, Mean Platelet Volume 9.7, Neutrophils (%) (Auto) 92H, Lymphocytes (%) (Auto) 2L , Monocytes (%) (Auto) 5, Eosinophils (%) (Auto) 1, Basophils (%) (Auto) 0, Neutrophils # (Auto) 13.6H, Lymphocytes # (Auto) 0.3L, Monocytes # (Auto) 0.7, Eosinophils # (Auto) 0.1, Basophils # (Auto) 0.0, Sodium Level 129L, Potassium Level 3.9, Chloride Level 94L, Carbon Dioxide Level 28, Anion Gap 7, Blood Urea Nitrogen 17, Creatinine 0.70, Estimat Glomerular Filtration Rate > 60, BUN/ Creatinine Ratio 24, Glucose Level 95, Calcium Level 7.4L, Phosphorus Level 2.2L , Magnesium Level 1.8, Total Bilirubin 0.7, Aspartate Amino Transf (AST/SGOT) 37H, Alanine Aminotransferase (ALT/SGPT) 32, Alkaline Phosphatase 71, B-Type Natriuretic Peptide 236.4H, Total Protein 4.5L, Albumin 2.1L 05/16/17 08:00: Glucometer 122H Microbiology 05/14/17 Blood Culture - Preliminary, Resulted No growth 05/14/17 MRSA Screen - Final, Complete MRSA not isolated Assessment/Plan Assessment/Plan Assessment/Plan 72 year old female with fall from standing tripped over oxygen tubing right humerus and right proximal femur fracture acute blood loss anemia Eliquis on hold, Hgb stable, transfuse as needed, continue to monitor hgb copd squamous cell lung cancer no acute general surgical issues, continue ortho and medical management will sign off at this time, call if needed. Clinical Quality Measures DVT/VTE Risk/Contraindication: Risk Factor Score Per Nursin RFS Level Per Nursing on Admit: 4+=Very High Contraindications-Pharm: Other *list below* HELENE SIMON DO May 16, 2017 16:32
[2017-05-16] MEDS ORDERED: morphine INJ 10 MG/ML 1ML (SYR OR VIAL) ONE (17:07)
[2017-05-16] MEDS ORDERED: morphine INJ 10 MG/ML 1ML (SYR OR VIAL) IVP PRN (17:30)
[2017-05-16] MEDS ORDERED: ONDANSETRON 4 MG/2 ML (SDV) Z0FRAN IVP PRN (17:30)
--- NOTE | 2017-05-16 17:30 | Diagnostic Imaging Report ---
INDICATION: Right hip fracture. IMPRESSION: 60.7 seconds of fluoroscopy and two digital images were obtained during internal fixation of an intertrochanteric fracture of the right hip. Images show the bone transfixed in good position with a dynamic fixation device. Dictated by: Dictated on workstation # [id number]
[2017-05-16] MEDS ORDERED: TROUGH ORDER-PHARMACY XX NR (20:00)
--- NOTE | 2017-05-16 21:45 | OPERATIVE REPORT ---
DATE OF SERVICE: 05/16/2017 PREOPERATIVE DIAGNOSIS: Right displaced closed intertrochanteric femur fracture. POSTOPERATIVE DIAGNOSIS: Right displaced closed intertrochanteric femur fracture. PROCEDURE: Intramedullary nail, right proximal femur with C-arm fluoroscopy. SURGEON: Juaquin Cordero MD. SURVEY CHIEF: YAYA Fields, who assisted throughout the procedure and closed the incisions. ANESTHESIA: General endotracheal by Akira Scott CRNA. ESTIMATED BLOOD LOSS: 100 mL. DRAINS: None. COMPLICATIONS: None. MATERIALS: Synthes TFN 11 x 170 mm nail with a 95 mm blade. The patient was transferred to the recovery room awake in stable condition. POSTOPERATIVE PLAN: A 50% weightbearing, right lower extremity. STATEMENT OF MEDICAL NECESSITY: The patient is a 72-year-old female who presented to the Emergency Department after being found down by her son for over 24 hours. She was felt to be septic and medically unfit for surgery yesterday. Therefore, she was optimized for planned internal fixation today. She understood risks, benefits, options, ramifications and recovery for operative fixation. DESCRIPTION OF PROCEDURE: After risks and benefits of procedure were discussed, questions were answered, and informed consent was signed and placed on chart, the operative site was confirmed was confirmed in the preoperative holding area initialed by the surgeon. The patient was then transferred to the operating room. After adequate levels of general endotracheal anesthetic were obtained, a timeout was called confirming the operative site. The patient was carefully placed on the fracture table and gentle longitudinal traction was applied. Fluoroscopy in AP and lateral planes revealed well reduced fracture. The right hip was then prepped and draped in the usual sterile fashion. A longitudinal incision was made from the greater trochanter extending proximally. The iliotibial band was incised in line with the incision. Under fluoroscopic guidance, a guidewire was passed through the greater trochanter into the femoral canal. This was felt to be well positioned in the AP and lateral planes. This was then over reamed and an 11 x 170 mm short shay was placed again felt to be in excellent position. A guidewire was passed through the 130-degree angled hole and was well positioned in the AP and lateral planes. This was then overdrilled laterally and a 95 mm blade plate was placed. The locking screw was placed. Static locked screw was then placed distally through a stab incision. Fluoroscopy in the AP and lateral planes revealed anatomic reduction of fracture with well-placed hardware. The wounds were copiously irrigated. The iliotibial band was closed with #1 Vicryl in figure-of-8 interrupted fashion. The wound was further irrigated. A 2-0 Vicryl was used to reapproximate subcutaneous tissue and skin was closed with joaquina. Incisions were infiltrated with plain Marcaine. A soft dressing was applied. The patient was transported to the recovery room, awake and in stable condition. Job ID: [id number] DocumentID: [id number] Dictated Date: 05/16/2017 17:05:06 Furnace Erector Date: 05/16/2017 21:45:32 Dictated By: JUAQUIN CORDERO MD
[2017-05-16] MEDS ORDERED: ceFAZolin INJECTION 1,000 MG in NS (IVPB) 50 ML IV NR (23:30)
[2017-05-17] VITALS (24 sets, daily range): BP systolic 109–156; BP diastolic 61–98
[2017-05-17] MEDS ORDERED: LEVOFLOXACIN 500 MG/D5W 100 ML (PRE-MIX) IV SCH (00:15)
[2017-05-17] MEDS: inSUlin (REGULAR) HUMAN 1 UNIT/0.01 ML (CHARGE PER UNIT) SC SCH ×7 (00:45→23:59)
[2017-05-17] MEDS: fentaNYL INJECTION 100 MCG/2 ML AMP IV PRN ×4 (02:41→14:28)
[2017-05-17] MEDS: ONDANSETRON 4 MG/2 ML (SDV) Z0FRAN IVP PRN (04:07)
[2017-05-17 04:43] LABS: HEMOGLOBIN 8.6 G/DL (11.5-16.0)
[2017-05-17 05:02] LABS: ALANINE AMINOTRANSFERASE 30 U/L (0-55); ALBUMIN 1.9 GM/DL (3.2-4.5); ALKALINE PHOSPHATASE 70 U/L (40-136); BILIRUBIN,TOTAL 0.6 MG/DL (0.1-1.0); BUN/CREATININE RATIO 18; CALCIUM 7.2 MG/DL (8.5-10.1); CARBON DIOXIDE 28 MMOL/L (21-32); CHLORIDE 95 MMOL/L (98-107); CREATININE SERUM 0.56 MG/DL (0.60-1.30); GFR ESTIMATED > 60; GLUCOSE 125 MG/DL (70-105); POTASSIUM 3.9 MMOL/L (3.6-5.0); SODIUM 131 MMOL/L (135-145); TOTAL PROTEIN 4.2 GM/DL (6.4-8.2)
[2017-05-17] MEDS: POTASSIUM CL 10MEQ/50ML IVPB 50 ML IV SCH (05:25)
[2017-05-17] MEDS: KCL 20 MEQ TAB (K-DUR) PO SCH (05:25)
[2017-05-17] MEDS: NOREPINEPHRINE 4 MG in NS (IVPB) 250 ML IV SCH ×2 (05:26→18:45)
[2017-05-17] MEDS: MAGNESIUM 1 GM/100 ML IVPB 100 ML IV SCH ×2 (05:33→06:27)
--- NOTE | 2017-05-17 05:45 | Diagnostic Imaging Report ---
Indication: Pneumonia Portable chest 5:03 AM Right IJ central line tip projects over the SVC. There are postop changes from a median sternotomy. There is increased density at the right lung base which is probably due to combination of effusion, infiltrate and/or atelectasis. Impression: Continued increased opacification right lower chest. No change from previous day. Dictated by: Dictated on workstation # [id number]
[2017-05-17] MEDS: CEFEPIME 1 GM/NS 50 ML IV SCH ×2 (06:00)
--- NOTE | 2017-05-17 06:15 | Pulmonary Progress Note ---
Subjective Time Seen by Provider: 06:13 Subjective/Events-last exam pt doing well post surgery. Exam Exam Vital Signs Date Time Temp Pulse Resp B/P (MAP) Pulse Ox O2 Delivery O2 Flow Rate FiO2 05/17/17 06:00 112 16 130/79 (96) 95 High Flow N/C 6.00 05/17/17 05:00 93 13 130/72 (91) High Flow N/C 6.00 05/17/17 04:00 99.1 05/17/17 04:00 92 High Flow N/C 6.00 05/17/17 04:00 96 15 132/76 (94) High Flow N/C 6.00 05/17/17 03:00 98 18 150/82 (104) 98 High Flow N/C 6.00 05/17/17 02:00 98 13 136/95 (109) 98 High Flow N/C 6.00 05/17/17 01:00 103 18 117/85 (96) 92 High Flow N/C 6.00 05/17/17 01:00 103 05/17/17 00:00 98.9 05/17/17 00:00 93 14 156/93 (114) 96 High Flow N/C 6.00 05/17/17 00:00 High Flow N/C 6.00 05/16/17 23:00 104 17 148/88 (108) 93 High Flow N/C 6.00 05/16/17 22:00 105 23 134/81 (98) 90 Nasal Cannula 4.00 05/16/17 21:00 105 21 144/85 (104) 93 Nasal Cannula 4.00 05/16/17 20:49 Nasal Cannula 4.00 05/16/17 20:00 Nasal Cannula 4.00 05/16/17 20:00 112 13 148/81 (103) 94 Nasal Cannula 4.00 05/16/17 20:00 99.1 05/16/17 19:00 111 18 90 Nasal Cannula 4.00 05/16/17 19:00 111 05/16/17 18:40 94 12 172/94 (120) 92 Nasal Cannula 4.00 05/16/17 18:25 92 16 155/90 (111) 92 Nasal Cannula 4.00 05/16/17 18:10 99.0 90 10 171/91 (117) Nasal Cannula 4.00 05/16/17 18:00 98 11 171/91 (117) 92 Nasal Cannula 4.00 05/16/17 16:00 Nasal Cannula 4.00 05/16/17 15:00 98 23 145/100 (115) 92 Nasal Cannula 4.00 05/16/17 14:00 99 19 137/88 (104) 94 Nasal Cannula 4.00 05/16/17 13:00 89 18 139/79 (99) 98 Nasal Cannula 4.00 05/16/17 13:00 87 05/16/17 12:00 Nasal Cannula 4.00 05/16/17 12:00 86 13 138/76 (96) 97 Nasal Cannula 4.00 05/16/17 11:00 99.0 92 13 145/79 (101) 9 Nasal Cannula 4.00 05/16/17 10:00 92 15 142/76 (98) 95 Nasal Cannula 4.00 05/16/17 09:00 85 11 140/78 (98) 95 Nasal Cannula 4.00 05/16/17 08:00 137 19 145/92 (109) 96 Nasal Cannula 4.00 05/16/17 08:00 Nasal Cannula 4.00 05/16/17 07:00 87 14 151/90 (110) 97 Nasal Cannula 4.00 I & O 05/17/17 07:00 Intake Total 600 ml Output Total 1875 ml Balance -1275 ml General Appearance: Mild Distress, Thin HEENT: Normal ENT Inspection Neck: Full Range of Motion Respiratory: No Accessory Muscle Use, No Respiratory Distress, Decreased Breath Sounds Cardiovascular: Irregularly Irregular Capillary Refill: Less Than 3 Seconds Gastrointestinal: normal bowel sounds, non tender, soft, no organomegaly, no pulsatile mass Extremity: Other (Fractured right hip and shoulder, echymosis right upper extremity) Neurologic/Psychiatric: Alert, Oriented x3, Normal Mood/Affect Skin: Warm/Dry Lymphatic: No Adenopathy Results Lab Laboratory Tests 05/15/17 13:40 05/15/17 18:44 05/16/17 00:25 05/16/17 04:20 05/17/17 04:30 Assessment/Plan Assessment/Plan S/P Fall with right hip and Right Humerus fracture -Ortho is consulted -Consult trauma surgeon -acute blood loss - now stable -US RUE -S/P 2 units of PRBC typed and crossed Severe Sepsis with pneumonia - much improved -Continue broadspectrum Abx -Landeros culture pending Hypotension- resolved -IVF 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 Pt is moderate risk of pulmonary complications post op however her pulmonary status is at her baseline status. ok to proceed with surgery from my standpoint. I will continue to follow after surgery. 233 Clinical Quality Measures DVT/VTE Risk/Contraindication: Risk Factor Score Per Nursin RFS Level Per Nursing on Admit: 4+=Very High Contraindications-Pharm: Other *list below* ALTAGRACIA WALLACE DO May 17, 2017 06:15
[2017-05-17] MEDS: LACTATED RINGERS 1,000 ML IV SCH (06:26)
[2017-05-17 06:40] LABS: BASOPHILS % (AUTO) 0 % (0-10); EOSINOPHILS # (AUTO) 0.1 10^3/uL (0.0-0.3); EOSINOPHILS % (AUTO) 1 % (0-10); HEMATOCRIT 25 % (35-52); HEMOGLOBIN 8.1 G/DL (11.5-16.0); LYMPHOCYTES # (AUTO) 0.3 X 10^3 (1.0-4.0); LYMPHOCYTES % (AUTO) 3 % (12-44); MEAN CORPUSCULAR HEMOGLOBIN 29 PG (25-34); MEAN CORPUSCULAR HGB CONC 33 G/DL (32-36); MEAN CORPUSCULAR VOLUME 89 FL (80-99); MEAN PLATELET VOLUME 9.7 FL (7.4-10.4); MONOCYTES # (AUTO) 0.6 X 10^3 (0.0-1.0); MONOCYTES % (AUTO) 7 % (0-12); NEUTROPHILS % (AUTO) 89 % (42-75); PLATELET COUNT 256 10^3/uL (130-400); RED BLOOD COUNT 2.79 10^6/uL (4.35-5.85); RED CELL DISTRIBUTION WIDTH 14.6 % (10.0-14.5)
--- NOTE | 2017-05-17 06:58 | Progress Note-Standard ---
Standard Progress Note Progress Notes/Assess & Plan Date Seen by Provider: May 17, 2017 Time Seen by Provider: 06:56 Progress/Assessment & Plan Pt. feeling better Vital Signs Date Time Temp Pulse Resp B/P (MAP) Pulse Ox O2 Delivery O2 Flow Rate FiO2 05/16/17 06:00 89 16 139/82 (101) 96 Nasal Cannula 4.00 05/16/17 05:00 83 13 144/82 (102) 96 Nasal Cannula 4.00 05/16/17 04:34 97.6 Nasal Cannula 4.00 05/16/17 04:00 89 15 139/82 (101) 96 Nasal Cannula 4.00 05/16/17 04:00 Nasal Cannula 4.00 05/16/17 03:00 94 15 143/102 (116) 96 Nasal Cannula 4.00 05/16/17 02:00 89 13 146/107 (120) 96 Nasal Cannula 4.00 05/16/17 01:00 99 05/16/17 01:00 100 21 153/89 (110) 96 Nasal Cannula 4.00 05/16/17 00:00 93 14 135/101 (112) 97 Nasal Cannula 4.00 05/16/17 00:00 Nasal Cannula 4.00 05/15/17 23:34 98.7 Nasal Cannula 4.00 05/15/17 23:00 90 15 154/88 (110) 97 Nasal Cannula 4.00 05/15/17 22:00 98 19 166/90 (115) 95 Nasal Cannula 4.00 05/15/17 21:00 94 17 157/85 (109) 95 Nasal Cannula 4.00 05/15/17 20:00 101 20 158/84 (108) 96 Nasal Cannula 4.00 05/15/17 20:00 98.3 Nasal Cannula 4.00 05/15/17 20:00 Nasal Cannula 4.00 05/15/17 19:00 94 05/15/17 19:00 96 25 141/84 (103) 96 Nasal Cannula 4.00 05/15/17 18:00 Nasal Cannula 4.00 05/15/17 18:00 96 25 141/82 (101) 94 Nasal Cannula 4.00 05/15/17 17:00 87 26 159/81 (107) 95 Nasal Cannula 4.00 05/15/17 16:10 98.4 05/15/17 16:05 Nasal Cannula 4.00 05/15/17 16:00 98 22 142/79 (100) 96 Nasal Cannula 4.00 05/15/17 15:00 98 20 138/87 (104) 94 Nasal Cannula 4.00 05/15/17 14:00 89 18 138/80 (99) 96 Nasal Cannula 4.00 05/15/17 13:12 98.1 93 155/89 05/15/17 13:00 98 23 150/78 (102) 98 Nasal Cannula 4.00 05/15/17 13:00 88 05/15/17 12:45 Nasal Cannula 4.00 05/15/17 12:03 98.2 05/15/17 12:00 101 14 124/93 (103) 98 Nasal Cannula 4.00 05/15/17 11:00 90 17 146/73 (97) 97 Nasal Cannula 4.00 05/15/17 10:20 96.4 89 20 144/75 96 Nasal Cannula 4.00 05/15/17 10:02 96.7 92 20 126/71 98 Nasal Cannula 4.00 05/15/17 10:00 90 17 126/71 (89) 99 Nasal Cannula 4.00 05/15/17 09:09 96.7 94 18 117/63 99 Nasal Cannula 4.00 05/15/17 09:00 Nasal Cannula 4.00 05/15/17 09:00 86 18 99/60 (73) 100 Nasal Cannula 4.00 05/15/17 08:36 97.1 98 18 117/62 (80) 96 Nasal Cannula 4.00 05/15/17 08:00 93 16 112/65 (81) 97 Nasal Cannula 4.00 I & O 05/16/17 07:00 Intake Total 4217 ml Output Total 1600 ml Balance 2617 ml Laboratory Tests Test 05/15/17 08:27 05/15/17 09:04 05/15/17 10:20 05/15/17 10:48 Range/Units Glucometer 34 *L 106 52 *L 83 70-110 MG/DL Test 05/15/17 11:33 05/15/17 12:07 05/15/17 12:29 05/15/17 13:40 Range/Units Glucometer 79 77 70-110 MG/DL Lab Scanned Report Transfusion Reaction Form [id number] Hemoglobin 9.2 #L 11.5-16.0 G/DL Hematocrit 27 L 35-52 % Test 05/15/17 14:31 05/15/17 15:27 05/15/17 16:25 05/15/17 17:57 Range/Units Glucometer 58 *L 63 L 60 *L 58 *L 70-110 MG/DL Test 05/15/17 18:44 05/15/17 18:52 05/15/17 20:09 05/15/17 20:59 Range/Units Hemoglobin 9.2 L 11.5-16.0 G/DL Hematocrit 27 L 35-52 % Glucometer 81 144 H 112 H 70-110 MG/DL Test 05/15/17 23:02 05/16/17 00:25 05/16/17 04:20 Range/Units Glucometer 116 H 70-110 MG/DL Hemoglobin 9.2 L 9.3 L 11.5-16.0 G/DL Hematocrit 28 L 28 L 35-52 % White Blood Count 14.7 H 4.3-11.0 10^3/uL Red Blood Count 3.17 L 4.35-5.85 10^6/uL Mean Corpuscular Volume 87 80-99 FL Mean Corpuscular Hemoglobin 29 25-34 PG Mean Corpuscular Hemoglobin Concent 34 32-36 G/DL Red Cell Distribution Width 15.0 H 10.0-14.5 % Platelet Count 295 130-400 10^3/uL Mean Platelet Volume 9.7 7.4-10.4 FL Neutrophils (%) (Auto) 92 H 42-75 % Lymphocytes (%) (Auto) 2 L 12-44 % Monocytes (%) (Auto) 5 0-12 % Eosinophils (%) (Auto) 1 0-10 % Basophils (%) (Auto) 0 0-10 % Neutrophils # (Auto) 13.6 H 1.8-7.8 X 10^3 Lymphocytes # (Auto) 0.3 L 1.0-4.0 X 10^3 Monocytes # (Auto) 0.7 0.0-1.0 X 10^3 Eosinophils # (Auto) 0.1 0.0-0.3 10^3/uL Basophils # (Auto) 0.0 0.0-0.1 10^3/uL Sodium Level 129 L 135-145 MMOL/L Potassium Level 3.9 3.6-5.0 MMOL/L Chloride Level 94 L 98-107 MMOL/L Carbon Dioxide Level 28 21-32 MMOL/L Anion Gap 7 5-14 MMOL/L Blood Urea Nitrogen 17 7-18 MG/DL Creatinine 0.70 0.60-1.30 MG/DL Estimat Glomerular Filtration Rate > 60 BUN/Creatinine Ratio 24 Glucose Level 95 70-105 MG/DL Calcium Level 7.4 L 8.5-10.1 MG/DL Phosphorus Level 2.2 L 2.3-4.7 MG/DL Magnesium Level 1.8 1.8-2.4 MG/DL Total Bilirubin 0.7 0.1-1.0 MG/DL Aspartate Amino Transf (AST/SGOT) 37 H 5-34 U/L Alanine Aminotransferase (ALT/SGPT) 32 0-55 U/L Alkaline Phosphatase 71 40-136 U/L Total Protein 4.5 L 6.4-8.2 GM/DL Albumin 2.1 L 3.2-4.5 GM/DL RLE--nvi distally. RUE decreased echymosis and swelling R IT femur fx and R surgical neck of humerus fx plan for ORIF R hip later today pt would like to go to [facility] for recovery Final Diagnosis patient feeling "rough" Laboratory Tests Test 05/16/17 08:00 05/16/17 20:25 05/17/17 00:48 05/17/17 04:30 Range/Units Glucometer 122 H 238 H 140 H 70-110 MG/DL Hemoglobin 8.6 L 11.5-16.0 G/DL Hematocrit 27 L 35-52 % Sodium Level 131 L 135-145 MMOL/L Potassium Level 3.9 3.6-5.0 MMOL/L Chloride Level 95 L 98-107 MMOL/L Carbon Dioxide Level 28 21-32 MMOL/L Anion Gap 8 5-14 MMOL/L Blood Urea Nitrogen 10 7-18 MG/DL Creatinine 0.56 L 0.60-1.30 MG/DL Estimat Glomerular Filtration Rate > 60 BUN/Creatinine Ratio 18 Glucose Level 125 H 70-105 MG/DL Calcium Level 7.2 L 8.5-10.1 MG/DL Magnesium Level 1.5 L 1.8-2.4 MG/DL Total Bilirubin 0.6 0.1-1.0 MG/DL Aspartate Amino Transf (AST/SGOT) 29 5-34 U/L Alanine Aminotransferase (ALT/SGPT) 30 0-55 U/L Alkaline Phosphatase 70 40-136 U/L B-Type Natriuretic Peptide 412.0 H <100.0 PG/ML Total Protein 4.2 L 6.4-8.2 GM/DL Albumin 1.9 L 3.2-4.5 GM/DL Test 05/17/17 04:33 05/17/17 06:30 Range/Units Glucometer 122 H 70-110 MG/DL White Blood Count 9.0 4.3-11.0 10^3/uL Red Blood Count 2.79 L 4.35-5.85 10^6/uL Hemoglobin 8.1 L 11.5-16.0 G/DL Hematocrit 25 L 35-52 % Mean Corpuscular Volume 89 80-99 FL Mean Corpuscular Hemoglobin 29 25-34 PG Mean Corpuscular Hemoglobin Concent 33 32-36 G/DL Red Cell Distribution Width 14.6 H 10.0-14.5 % Platelet Count 256 130-400 10^3/uL Mean Platelet Volume 9.7 7.4-10.4 FL Neutrophils (%) (Auto) 89 H 42-75 % Lymphocytes (%) (Auto) 3 L 12-44 % Monocytes (%) (Auto) 7 0-12 % Eosinophils (%) (Auto) 1 0-10 % Basophils (%) (Auto) 0 0-10 % Neutrophils # (Auto) 8.0 H 1.8-7.8 X 10^3 Lymphocytes # (Auto) 0.3 L 1.0-4.0 X 10^3 Monocytes # (Auto) 0.6 0.0-1.0 X 10^3 Eosinophils # (Auto) 0.1 0.0-0.3 10^3/uL Basophils # (Auto) 0.0 0.0-0.1 10^3/uL Vital Signs Date Time Temp Pulse Resp B/P (MAP) Pulse Ox O2 Delivery O2 Flow Rate FiO2 05/17/17 06:00 112 16 130/79 (96) 95 High Flow N/C 6.00 05/17/17 05:00 93 13 130/72 (91) High Flow N/C 6.00 05/17/17 04:00 99.1 05/17/17 04:00 92 High Flow N/C 6.00 05/17/17 04:00 96 15 132/76 (94) High Flow N/C 6.00 05/17/17 03:00 98 18 150/82 (104) 98 High Flow N/C 6.00 05/17/17 02:00 98 13 136/95 (109) 98 High Flow N/C 6.00 05/17/17 01:00 103 18 117/85 (96) 92 High Flow N/C 6.00 05/17/17 01:00 103 05/17/17 00:00 98.9 05/17/17 00:00 93 14 156/93 (114) 96 High Flow N/C 6.00 05/17/17 00:00 High Flow N/C 6.00 05/16/17 23:00 104 17 148/88 (108) 93 High Flow N/C 6.00 05/16/17 22:00 105 23 134/81 (98) 90 Nasal Cannula 4.00 05/16/17 21:00 105 21 144/85 (104) 93 Nasal Cannula 4.00 05/16/17 20:49 Nasal Cannula 4.00 05/16/17 20:00 Nasal Cannula 4.00 05/16/17 20:00 112 13 148/81 (103) 94 Nasal Cannula 4.00 05/16/17 20:00 99.1 05/16/17 19:00 111 18 90 Nasal Cannula 4.00 05/16/17 19:00 111 05/16/17 18:40 94 12 172/94 (120) 92 Nasal Cannula 4.00 05/16/17 18:25 92 16 155/90 (111) 92 Nasal Cannula 4.00 05/16/17 18:10 99.0 90 10 171/91 (117) Nasal Cannula 4.00 05/16/17 18:00 98 11 171/91 (117) 92 Nasal Cannula 4.00 05/16/17 16:00 Nasal Cannula 4.00 05/16/17 15:00 98 23 145/100 (115) 92 Nasal Cannula 4.00 05/16/17 14:00 99 19 137/88 (104) 94 Nasal Cannula 4.00 05/16/17 13:00 89 18 139/79 (99) 98 Nasal Cannula 4.00 05/16/17 13:00 87 2/8/18 12:00 Nasal Cannula 4.00 05/16/17 12:00 86 13 138/76 (96) 97 Nasal Cannula 4.00 05/16/17 11:00 99.0 92 13 145/79 (101) 9 Nasal Cannula 4.00 05/16/17 10:00 92 15 142/76 (98) 95 Nasal Cannula 4.00 05/16/17 09:00 85 11 140/78 (98) 95 Nasal Cannula 4.00 05/16/17 08:00 137 19 145/92 (109) 96 Nasal Cannula 4.00 05/16/17 08:00 Nasal Cannula 4.00 05/16/17 07:00 87 14 151/90 (110) 97 Nasal Cannula 4.00 I & O 05/17/17 07:00 Intake Total 800 ml Output Total 2075 ml Balance -1275 ml RLE--dressing intact. Intact DF and PF of toes and ankle sensation intact throughout s/p ORIF R hip 50% WB RLE ok to TF to floor when stable from my standpoint rec SCDs to CARMEN STOUT MD May 17, 2017 06:58
--- NOTE | 2017-05-17 07:22 | Progress Note (SOAP) ---
Subjective Time Seen by Provider: 07:20 Subjective/Events-last exam Patient feels depressed today after surgery. Blood tests look good. Chest x-ray shows a little bit more pleural effusion or atelectasis or combination of infiltrate Objective Exam Vital Signs Date Time Temp Pulse Resp B/P (MAP) Pulse Ox O2 Delivery O2 Flow Rate FiO2 05/17/17 06:00 112 16 130/79 (96) 95 High Flow N/C 6.00 05/17/17 05:00 93 13 130/72 (91) High Flow N/C 6.00 05/17/17 04:00 99.1 05/17/17 04:00 92 High Flow N/C 6.00 05/17/17 04:00 96 15 132/76 (94) High Flow N/C 6.00 05/17/17 03:00 98 18 150/82 (104) 98 High Flow N/C 6.00 05/17/17 02:00 98 13 136/95 (109) 98 High Flow N/C 6.00 05/17/17 01:00 103 18 117/85 (96) 92 High Flow N/C 6.00 05/17/17 01:00 103 05/17/17 00:00 98.9 05/17/17 00:00 93 14 156/93 (114) 96 High Flow N/C 6.00 05/17/17 00:00 High Flow N/C 6.00 05/16/17 23:00 104 17 148/88 (108) 93 High Flow N/C 6.00 05/16/17 22:00 105 23 134/81 (98) 90 Nasal Cannula 4.00 05/16/17 21:00 105 21 144/85 (104) 93 Nasal Cannula 4.00 05/16/17 20:49 Nasal Cannula 4.00 05/16/17 20:00 Nasal Cannula 4.00 05/16/17 20:00 112 13 148/81 (103) 94 Nasal Cannula 4.00 05/16/17 20:00 99.1 05/16/17 19:00 111 18 90 Nasal Cannula 4.00 05/16/17 19:00 111 05/16/17 18:40 94 12 172/94 (120) 92 Nasal Cannula 4.00 05/16/17 18:25 92 16 155/90 (111) 92 Nasal Cannula 4.00 05/16/17 18:10 99.0 90 10 171/91 (117) Nasal Cannula 4.00 05/16/17 18:00 98 11 171/91 (117) 92 Nasal Cannula 4.00 05/16/17 16:00 Nasal Cannula 4.00 05/16/17 15:00 98 23 145/100 (115) 92 Nasal Cannula 4.00 05/16/17 14:00 99 19 137/88 (104) 94 Nasal Cannula 4.00 05/16/17 13:00 89 18 139/79 (99) 98 Nasal Cannula 4.00 05/16/17 13:00 87 05/16/17 12:00 Nasal Cannula 4.00 05/16/17 12:00 86 13 138/76 (96) 97 Nasal Cannula 4.00 05/16/17 11:00 99.0 92 13 145/79 (101) 9 Nasal Cannula 4.00 05/16/17 10:00 92 15 142/76 (98) 95 Nasal Cannula 4.00 05/16/17 09:00 85 11 140/78 (98) 95 Nasal Cannula 4.00 05/16/17 08:00 137 19 145/92 (109) 96 Nasal Cannula 4.00 05/16/17 08:00 Nasal Cannula 4.00 I & O 05/17/17 07:00 Intake Total 800 ml Output Total 2075 ml Balance -1275 ml Capillary Refill : Less Than 3 SecondsLess Than 3 Seconds General Appearance: No Apparent Distress, Thin HEENT: Normal ENT Inspection Neck: Full Range of Motion Respiratory: No Accessory Muscle Use, No Respiratory Distress, Decreased Breath Sounds Cardiovascular: Regular Rate, Rhythm, No Murmur Gastrointestinal: other (Pouchy) Results Lab Laboratory Tests 05/17/17 04:30 05/17/17 06:30 Laboratory Tests 05/16/17 08:00: Glucometer 122H 05/16/17 20:25: Glucometer 238H 05/17/17 00:48: Glucometer 140H 05/17/17 04:30: Hemoglobin 8.6L, Hematocrit 27L, Sodium Level 131L, Potassium Level 3.9, Chloride Level 95L, Carbon Dioxide Level 28, Anion Gap 8, Blood Urea Nitrogen 10 , Creatinine 0.56L, Estimat Glomerular Filtration Rate > 60, BUN/Creatinine Ratio 18, Glucose Level 125H, Calcium Level 7.2L, Magnesium Level 1.5L, Total Bilirubin 0.6, Aspartate Amino Transf (AST/SGOT) 29, Alanine Aminotransferase ( ALT/SGPT) 30, Alkaline Phosphatase 70, B-Type Natriuretic Peptide 412.0H, Total Protein 4.2L, Albumin 1.9L 05/17/17 04:33: Glucometer 122H 05/17/17 06:30: White Blood Count 9.0, Red Blood Count 2.79L, Hemoglobin 8.1L, Hematocrit 25L, Mean Corpuscular Volume 89, Mean Corpuscular Hemoglobin 29, Mean Corpuscular Hemoglobin Concent 33, Red Cell Distribution Width 14.6H, Platelet Count 256, Mean Platelet Volume 9.7, Neutrophils (%) (Auto) 89H, Lymphocytes (%) (Auto) 3L , Monocytes (%) (Auto) 7, Eosinophils (%) (Auto) 1, Basophils (%) (Auto) 0, Neutrophils # (Auto) 8.0H, Lymphocytes # (Auto) 0.3L, Monocytes # (Auto) 0.6, Eosinophils # (Auto) 0.1, Basophils # (Auto) 0.0 Microbiology 05/14/17 Blood Culture - Preliminary, Resulted No growth 05/14/17 MRSA Screen - Final, Complete MRSA not isolated Assessment/Plan Assessment/Plan Assess & Plan/Chief Complaint Sepsis with pneumonia. fall Acute blood loss. Hypotension resolved. COPD with acute exacerbation. Squamous cell lung cancer. Patient to have hip surgery today. Patient has hip fracture and shoulder fracture. . 05/17/17. 4. Sepsis with pneumonia. Acute blood loss. Hypertension. COPD. Swelling of cell lung cancer. Hip fracture had surgery yesterday. Right shoulder fracture. Hemoglobin and hematocrit stable. Chest x-ray little worse Clinical Quality Measures DVT/VTE Risk/Contraindication: Risk Factor Score Per Nursin RFS Level Per Nursing on Admit: 4+=Very High Contraindications-Pharm: Other *list below* WEST MCCAULEY DO May 17, 2017 07:22
[2017-05-17] MEDS ORDERED: NS 1000 ML IV BAG IV ONE (07:30)
[2017-05-17] MEDS: NS IV 1000 ML 1,000 ML IV SCH ×2 (07:48→17:28)
--- NOTE | 2017-05-17 08:18 | Diagnostic Imaging Report ---
CLINICAL INDICATION: Patient with abdominal distention. EXAM: Portable KUB x-ray. COMPARISON: KUB x-ray dated 01/29/2017. FINDINGS: Nonspecific bowel gas pattern with air distended loops of small bowel and colon which has slightly increased in the interim. Largest loop of air distended colon is roughly 5.9 cm. There is small amount of stool scattered throughout the colon. There is no intra-abdominal free air. Endovascular stent-graft in the bilateral common iliac artery regions is seen. There is multilevel degenerative spurs involving the spine. Interval placement of intramedullary shay within the comminuted fracture proximal right femur. There is no gross calcifications overlying the expected kidneys, ureters, or bladder regions. IMPRESSION: 1: Non-specific bowel gas pattern with slight increased air distention of the small bowel and colon. There is a small amount of stool in the colon. 2: Interval placement of intramedullary shay within the comminuted fracture of the right hip. Dictated by: Dictated on workstation # [id number]
[2017-05-17] MEDS: ENOXAPARIN 40 MG/0.4 ML (LOVENOX) SYR SC SCH (09:00)
[2017-05-17] MEDS: PANTOPRAZOLE 40 MG (PROTONIX) TAB PO SCH (09:12)
[2017-05-17] MEDS: RT-ALBUTEROL/IPRATROPIUM 3 ML (DUONEB) VIAL INH SCH ×3 (09:36→20:08)
--- NOTE | 2017-05-17 11:05 | Cardiology Progress Note ---
Cardiology SOAP Progress Note Subjective: No significant cardiac symptoms. Objective: I&O/Vital Signs Vital Sign - Last 12Hours 05/17/17 05/17/17 05/17/17 05/17/17 09:37 10:00 11:00 12:00 Pulse 100 106 Resp 19 22 B/P (MAP) 138/73 (94) 132/85 (101) Pulse Ox 95 91 99 O2 Delivery High Flow N/C High Flow N/C High Flow N/C High Flow N/C O2 Flow Rate 6.00 6.00 6.00 6.00 05/17/17 05/17/17 05/17/17 05/17/17 12:00 12:00 13:00 13:00 Temp 99.8 Pulse 114 107 97 Resp 28 16 B/P (MAP) 111/74 (86) 128/75 (92) Pulse Ox 91 92 O2 Delivery High Flow N/C High Flow N/C High Flow N/C O2 Flow Rate 6.00 6.00 6.00 05/17/17 05/17/17 05/17/17 05/17/17 14:00 15:00 15:05 16:00 Pulse 105 105 109 Resp 14 19 24 B/P (MAP) 146/81 (102) 139/71 (93) 135/90 (105) Pulse Ox 91 94 92 O2 Delivery High Flow N/C High Flow N/C High Flow N/C High Flow N/C O2 Flow Rate 6.00 6.00 6.00 6.00 05/17/17 05/17/17 05/17/17 05/17/17 16:00 17:00 18:00 20:00 Pulse 103 112 Resp 18 14 B/P (MAP) 124/73 (90) 132/61 (84) Pulse Ox 94 93 O2 Delivery High Flow N/C High Flow N/C High Flow N/C High Flow N/C O2 Flow Rate 6.00 6.00 6.00 6.00 05/17/17 20:08 Pulse Ox 95 O2 Delivery High Flow N/C O2 Flow Rate 6.00 Intake and Output 05/17/17 00:00 Intake Total 350 ml Output Total 1325 ml Balance -975 ml Weight (Pounds): 117 Weight (Ounces): 9.0 Weight (Calculated Kilograms): 53.732139 Constitutional: AAO x 3 Respiratory: lungs clear to percussion, lungs clear to auscultation Cardiovascular: regular rate-rhythm, S1 and S2 Gastrointestional: No tender, No soft, No round, No distended, No pulsatile mass, No organomegaly, No guarding, No rebound, No tenderness, No hernia, No mass, No audible bowel sounds, No abnormal bowel sounds, No abdominal bruits, No spleenomegaly, No other Extremities: tenderness Neurologic/Psychiatric: No fur matcher II-XII nml as tested, No no motor/sensory deficits, alert, normal mood/affect, oriented x 3, No abnormal cerebellar tests , No abnormal fur matcher II-XII, No abnormal gait, No aphasia, No EOM palsy, No facial droop, No motor weakness, No sensory deficit, No depressed affect, No disoriented x 3, No other, No grossly intact, No power is 5/5 both on sides Skin: No normal color, No warm/dry, No cyanosis, No cool, No diaphoresis, No damp, ecchymosis (significant ecchymosis from the elbow to about shoulder on the right. Multiple other small bruises throughout the body.), No jaundice, No mottled, No pallor, No rash, No tattoos/piercings, No ulcerations, No rash on exposed areas, No ulcerations on exposed areas, No other Results/Procedures: Labs Laboratory Tests 05/17/17 00:48: Glucometer 140H 05/17/17 04:30: Hemoglobin 8.6L, Hematocrit 27L, Sodium Level 131L, Potassium Level 3.9, Chloride Level 95L, Carbon Dioxide Level 28, Anion Gap 8, Blood Urea Nitrogen 10 , Creatinine 0.56L, Estimat Glomerular Filtration Rate > 60, BUN/Creatinine Ratio 18, Glucose Level 125H, Calcium Level 7.2L, Magnesium Level 1.5L, Total Bilirubin 0.6, Aspartate Amino Transf (AST/SGOT) 29, Alanine Aminotransferase ( ALT/SGPT) 30, Alkaline Phosphatase 70, B-Type Natriuretic Peptide 412.0H, Total Protein 4.2L, Albumin 1.9L 05/17/17 04:33: Glucometer 122H 05/17/17 06:30: Hemoglobin 8.1L, Hematocrit 25L, White Blood Count 9.0, Red Blood Count 2.79L, Mean Corpuscular Volume 89, Mean Corpuscular Hemoglobin 29, Mean Corpuscular Hemoglobin Concent 33, Red Cell Distribution Width 14.6H, Platelet Count 256, Mean Platelet Volume 9.7, Neutrophils (%) (Auto) 89H, Lymphocytes (%) (Auto) 3L , Monocytes (%) (Auto) 7, Eosinophils (%) (Auto) 1, Basophils (%) (Auto) 0, Neutrophils # (Auto) 8.0H, Lymphocytes # (Auto) 0.3L, Monocytes # (Auto) 0.6, Eosinophils # (Auto) 0.1, Basophils # (Auto) 0.0 05/17/17 08:31: Glucometer 182H 05/17/17 11:51: Glucometer 222H 05/17/17 16:47: Glucometer 200H Microbiology 05/14/17 Blood Culture - Preliminary, Resulted No growth 05/14/17 MRSA Screen - Final, Complete MRSA not isolated A/P: Assessment/Dx: Hip and right arm fracture. Right lower lobe pneumonia/sepsis CAD/CABG, Paroxysmal atrial fibrillation, Diastolic dysfunction, Tricuspid regurgitation Plan: Outpatient of Dr. Pal. Hip fracture: post hip surgery. Pneumonia/sepsis: Deferred to Dr. Morris and Dr. Dubois. CAD. S/p CABG Feb [address] Guzman in [place], [place]. She had LEMUS to LAD, SVG to PDA, and sequential SVG to diagonal and OM. Last cardiac cath was on 07/12/15 and it showed multivessel CAD with patent SVG to distal RCA, patent LEMUS to distal LAD, and a sequential SVG with 50-60% mid-graft stenosis that was patent to first diag but occluded to OM. She underwent successful balloon angioplasty of the OM to which the graft was occluded. LVEF 60% on cath 07/12/15 with mild elevation of LVEDP Echocardiogram from January 03, 2015 showed LVEF 60%. Last echo of 04/19/16 showed LVEF 55-60%, mod diastolic dysfunction of LV, severe pulm htn with RVSP approx 72 mmHg Pulm htn, managed by Dr Dubois PAD. 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 Abdominal aortic aneurysm screening of February 2016 was negative for abdominal aortic aneurysm S/p radiation and chemo for right lung cancer in mid 2016, managed by Dr Contreras and Sherly H/o intermittent pneumonia Tobacco use quit in early 2012 Hypertension COPD with associated pulm hypertension Hyperlipidemia, controlled Hypothyroidism being treated with thyroid replacement therapy Carotid u/s from July 2014 showed minimal bilat carotid arterial disease without evidence of hemodynamic significance Mild hyperglycemia, suggestive of borderline DM II, on blood work of 07/12/15 Thank you for your consultation. Please call me if you have any questions. Paddy Funk MD, FACP, FACC, FSCAI, FHRS, CCDS Interventional Cardiology Cardiac Electrophysiology Vascular Medicine and Endovascular Interventions Melanie FUNK MD May 17, 2017 11:05 am
--- NOTE | 2017-05-17 13:07 | Anesthesia-Regional Post-Op ---
Regional Patient Condition Mental Status: Alert, Oriented x3 Circulation: Same as Pre-Op Headache: Absent Sensation: Full Recovery Motor Block: Absent Post Op Complications Complications None Follow Up Care/Instructions Patient Instructions None needed. Anesthesia/Patient Condition Patient is doing well, no complaints, stable vital signs, no apparent adverse anesthesia problems. No complications reported per nursing. MARSHAL SEGURA CRNA May 17, 2017 13:07
[2017-05-17] MEDS: oxyCODONE/APAP 5/325MG (PERCOCET 5) TABLET PO PRN (17:28)
[2017-05-18] VITALS (17 sets, daily range): BP systolic 98–143; BP diastolic 4–99
[2017-05-18] MEDS: RT-ALBUTEROL/IPRATROPIUM 3 ML (DUONEB) VIAL INH SCH ×4 (02:46→19:42)
[2017-05-18] MEDS: NS IV 1000 ML 1,000 ML IV SCH ×2 (03:26→18:03)
[2017-05-18] MEDS: inSUlin (REGULAR) HUMAN 1 UNIT/0.01 ML (CHARGE PER UNIT) SC SCH ×5 (04:00→21:03)
[2017-05-18 04:09] LABS: BASOPHILS % (AUTO) 0 % (0-10); EOSINOPHILS # (AUTO) 0.1 10^3/uL (0.0-0.3); EOSINOPHILS % (AUTO) 1 % (0-10); HEMATOCRIT 24 % (35-52); HEMOGLOBIN 7.5 G/DL (11.5-16.0); LYMPHOCYTES # (AUTO) 0.4 X 10^3 (1.0-4.0); LYMPHOCYTES % (AUTO) 5 % (12-44); MEAN CORPUSCULAR HEMOGLOBIN 29 PG (25-34); MEAN CORPUSCULAR HGB CONC 32 G/DL (32-36); MEAN CORPUSCULAR VOLUME 90 FL (80-99); MEAN PLATELET VOLUME 9.7 FL (7.4-10.4); MONOCYTES # (AUTO) 0.7 X 10^3 (0.0-1.0); MONOCYTES % (AUTO) 9 % (0-12); NEUTROPHILS # (AUTO) 6.9 X 10^3 (1.8-7.8); NEUTROPHILS % (AUTO) 85 % (42-75); PLATELET COUNT 266 10^3/uL (130-400); RED BLOOD COUNT 2.61 10^6/uL (4.35-5.85); RED CELL DISTRIBUTION WIDTH 14.6 % (10.0-14.5)
[2017-05-18] MEDS: fentaNYL INJECTION 100 MCG/2 ML AMP IV PRN (04:25)
[2017-05-18 04:33] LABS: ALANINE AMINOTRANSFERASE 23 U/L (0-55); ALBUMIN 1.9 GM/DL (3.2-4.5); ALKALINE PHOSPHATASE 66 U/L (40-136); BILIRUBIN,TOTAL 0.4 MG/DL (0.1-1.0); BUN/CREATININE RATIO 13; CALCIUM 7.5 MG/DL (8.5-10.1); CARBON DIOXIDE 30 MMOL/L (21-32); CHLORIDE 100 MMOL/L (98-107); CREATININE SERUM 0.53 MG/DL (0.60-1.30); GFR ESTIMATED > 60; GLUCOSE 98 MG/DL (70-105); POTASSIUM 3.7 MMOL/L (3.6-5.0); SODIUM 135 MMOL/L (135-145)
[2017-05-18] MEDS: MAGNESIUM 1 GM/100 ML IVPB 100 ML IV SCH (06:15)
[2017-05-18] MEDS: KCL 20 MEQ TAB (K-DUR) PO SCH (06:15)
[2017-05-18] MEDS: POTASSIUM CL 10MEQ/50ML IVPB 50 ML IV SCH (06:15)
[2017-05-18] MEDS: CEFEPIME 1 GM/NS 50 ML IV SCH ×2 (06:43)
[2017-05-18] MEDS: PANTOPRAZOLE 40 MG (PROTONIX) TAB PO SCH (06:43)
[2017-05-18] MEDS: oxyCODONE/APAP 5/325MG (PERCOCET 5) TABLET PO PRN ×4 (06:47→22:17)
[2017-05-18] MEDS ORDERED: PANTOPRAZOLE 40 MG (PROTONIX) TAB PO SCH (07:00)
[2017-05-18] MEDS: ENOXAPARIN 40 MG/0.4 ML (LOVENOX) SYR SC SCH (08:00)
[2017-05-18] MEDS: NOREPINEPHRINE 4 MG in NS (IVPB) 250 ML IV SCH ×2 (08:05→19:31)
--- NOTE | 2017-05-18 08:38 | Diagnostic Imaging Report ---
Portable chest is compared with a prior study from 05/17/2017. INDICATION: Right lower lobe pneumonia. FINDINGS: Persistent right base consolidation and associated effusion is present and not significantly changed allowing for differences in technique. Left lung remains clear. Heart size stable. Right internal jugular line unchanged. Prior sternotomy wires are noted as well as osteo markers. There is no pneumothorax. Prior fracture deformity of the proximal right humerus is noted. IMPRESSION: No significant interval change and right lower lobe consolidation with associated effusion. Findings remain most compatible with a right base pneumonia. Dictated by: Dictated on workstation # [id number]
[2017-05-18] MEDS ORDERED: NITROGLYCERIN 0.4 MG SL TABS BTL 25'S SL PRN (09:30)
[2017-05-18] MEDS ORDERED: meTOprolol TARTRATE 50 MG (LOPRESSOR) TAB PO NR (09:30)
--- NOTE | 2017-05-18 09:40 | Progress Note-Hospitalist ---
Subjective HPI/CC On Admission Date Seen by Provider: May 18, 2017 Time Seen by Provider: 08:45 Reports some burning around hip surgery/pending site with less shortness of breath. She asks about home medications which have not yet been resumed. She reports minimal sputum production and denies chest pain. Objective Exam Vital Signs Vital Signs Date Time Temp Pulse Resp B/P (MAP) Pulse Ox O2 Delivery O2 Flow Rate FiO2 05/14/17 19:08 96.4 117 20 90/66 (74) 93 Room Air 4.00 Capillary Refill : Less Than 3 SecondsLess Than 3 Seconds General Appearance: No Apparent Distress, Chronically ill Respiratory: No Accessory Muscle Use, No Respiratory Distress, Other ( Bilateral scattered rhonchi without wheezing. A few rales posteriorly in the right base left side is relatively clear) Cardiovascular: No Gallop, No JVD, No Murmur, Tachycardia (Regular) Gastrointestinal: Normal Bowel Sounds, No Organomegaly, No Pulsatile Mass, Non Tender, Soft Extremity: Other (2+ right upper extremity edema with purpura right hip swelling and 1+ edema of the right lower extremity minimal left) Neurologic/Psychiatric: Alert, Other (Oriented 2) Results/Procedures Lab Laboratory Tests 05/18/17 03:50 Assessment/Plan Assessment and Plan Assess & Plan/Chief Complaint 1. Right hip and humeral head fracture status post pinning of the right hip conservative management right shoulder. We will consult physical therapy and discussing importance of moving as the patient is been resistant. 2. Right-sided pneumonia on cefepime due to reported past history of Pseudomonas no evidence for sepsis currently. 3. 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 4. COPD with pulmonary hypertension secondary to past tobaccoism 5. Multifactorial frailty prognosis guarded. 6. Anemia blood loss from fractures plus likely component of chronic disease no evidence for hemodynamic instability we'll continue to monitor if lower tomorrow we'll likely need to transfuse. Transfer to floor later today. PATY MONROE MD May 18, 2017 09:40
--- NOTE | 2017-05-18 10:10 | Progress Note-Standard ---
Standard Progress Note Progress Notes/Assess & Plan Date Seen by Provider: May 18, 2017 Time Seen by Provider: 10:00 Progress/Assessment & Plan Pt. has no complaints. She is POD #2. Right hip dressing changed. Incisions are clean and dry with no warmth, erythema or drainage. Bilat. calves soft and nontender with negative Marshall's signs. RLE intact DF, PF AND EHL. RUE ecchymotic but sensation intact to light touch along ulnar, radial and median nerve distributions. Assessment: 1. Doing well postop ORIF Rt. hip 2. right proximal humerus fracture Plan: PT and OT as tolerated with PWB RLE Sling applied today RUE DVT prophylaxis ANSELMO TERRY May 18, 2017 10:10
--- NOTE | 2017-05-18 12:39 | Cardiology Progress Note ---
Cardiology SOAP Progress Note Subjective: discomfort at site of surgery. Objective: I&O/Vital Signs Vital Sign - Last 12Hours 05/18/17 05/18/17 05/18/17 05/18/17 04:26 05:00 06:00 07:00 Pulse 112 92 90 99 Resp 14 15 17 B/P (MAP) 124/73 (90) 143/75 (97) 119/67 (84) Pulse Ox 90 96 95 O2 Delivery High Flow N/C High Flow N/C High Flow N/C O2 Flow Rate 6.00 6.00 6.00 05/18/17 05/18/17 05/18/17 05/18/17 07:00 08:00 08:00 08:00 Temp 99.4 Pulse 91 106 Resp 13 14 B/P (MAP) 128/68 (88) 127/70 (89) Pulse Ox 94 95 O2 Delivery High Flow N/C High Flow N/C High Flow N/C High Flow N/C O2 Flow Rate 6.00 6.00 6.00 6.00 05/18/17 05/18/17 05/18/17 05/18/17 09:00 09:59 10:00 11:00 Pulse 122 114 100 Resp 20 15 15 B/P (MAP) 126/75 (92) 126/81 (96) 134/80 (98) Pulse Ox 95 93 93 93 O2 Delivery High Flow N/C High Flow N/C High Flow N/C High Flow N/C O2 Flow Rate 6.00 4.00 6.00 6.00 05/18/17 05/18/17 05/18/17 05/18/17 12:00 12:00 12:00 13:00 Temp 99.0 Pulse 95 81 Resp 20 19 B/P (MAP) 115/72 (86) 115/99 (104) Pulse Ox 89 98 O2 Delivery High Flow N/C High Flow N/C High Flow N/C High Flow N/C O2 Flow Rate 6.00 6.00 6.00 6.00 05/18/17 05/18/17 05/18/17 05/18/17 13:00 14:00 15:24 15:35 Pulse 89 87 Resp 16 B/P (MAP) 120/71 (87) Pulse Ox 97 98 O2 Delivery High Flow N/C High Flow N/C High Flow N/C O2 Flow Rate 6.00 4.00 6.00 Intake and Output 05/18/17 00:00 Intake Total 1550 ml Output Total 1350 ml Balance 200 ml Weight (Pounds): 119 Weight (Ounces): 9.0 Weight (Calculated Kilograms): 53.624080 Constitutional: AAO x 3 Respiratory: lungs clear to percussion, lungs clear to auscultation Cardiovascular: regular rate-rhythm, S1 and S2 Gastrointestional: No tender, No soft, No round, No distended, No pulsatile mass, No organomegaly, No guarding, No rebound, No tenderness, No hernia, No mass, No audible bowel sounds, No abnormal bowel sounds, No abdominal bruits, No spleenomegaly, No other Extremities: tenderness Neurologic/Psychiatric: No oral and maxillofacial surgeon II-XII nml as tested, No no motor/sensory deficits, alert, normal mood/affect, oriented x 3, No abnormal cerebellar tests , No abnormal oral and maxillofacial surgeon II-XII, No abnormal gait, No aphasia, No EOM palsy, No facial droop, No motor weakness, No sensory deficit, No depressed affect, No disoriented x 3, No other, No grossly intact, No power is 5/5 both on sides Skin: No normal color, No warm/dry, No cyanosis, No cool, No diaphoresis, No damp, ecchymosis (significant ecchymosis from the elbow to about shoulder on the right. Multiple other small bruises throughout the body.), No jaundice, No mottled, No pallor, No rash, No tattoos/piercings, No ulcerations, No rash on exposed areas, No ulcerations on exposed areas, No other Results/Procedures: Labs Laboratory Tests 05/17/17 16:47: Glucometer 200H 05/17/17 23:55: Glucometer 211H 05/18/17 03:50: White Blood Count 8.0, Red Blood Count 2.61L, Hemoglobin 7.5L, Hematocrit 24L, Mean Corpuscular Volume 90, Mean Corpuscular Hemoglobin 29, Mean Corpuscular Hemoglobin Concent 32, Red Cell Distribution Width 14.6H, Platelet Count 266, Mean Platelet Volume 9.7, Neutrophils (%) (Auto) 85H, Lymphocytes (%) (Auto) 5L , Monocytes (%) (Auto) 9, Eosinophils (%) (Auto) 1, Basophils (%) (Auto) 0, Neutrophils # (Auto) 6.9, Lymphocytes # (Auto) 0.4L, Monocytes # (Auto) 0.7, Eosinophils # (Auto) 0.1, Basophils # (Auto) 0.0, Sodium Level 135, Potassium Level 3.7, Chloride Level 100, Carbon Dioxide Level 30, Anion Gap 5, Blood Urea Nitrogen 7, Creatinine 0.53L, Estimat Glomerular Filtration Rate > 60, BUN/ Creatinine Ratio 13, Glucose Level 98, Calcium Level 7.5L, Total Bilirubin 0.4, Aspartate Amino Transf (AST/SGOT) 21, Alanine Aminotransferase (ALT/SGPT) 23, Alkaline Phosphatase 66, Total Protein 4.0L, Albumin 1.9L 05/18/17 08:16: Glucometer 99 05/18/17 13:18: Glucometer 167H Microbiology 05/14/17 Blood Culture - Preliminary, Resulted No growth 05/14/17 MRSA Screen - Final, Complete MRSA not isolated A/P: Assessment/Dx: Hip and right arm fracture. Right lower lobe pneumonia/sepsis CAD/CABG, Paroxysmal atrial fibrillation, Diastolic dysfunction, Tricuspid regurgitation Plan: Outpatient of Dr. Pal. Hip fracture: post hip surgery. Pneumonia/sepsis: Deferred to Dr. Morris and Dr. Dubois. CAD. S/p CABG Feb [address] Guzman in [place], [place]. She had LEMUS to LAD, SVG to PDA, and sequential SVG to diagonal and OM. Last cardiac cath was on 07/12/15 and it showed multivessel CAD with patent SVG to distal RCA, patent LEMUS to distal LAD, and a sequential SVG with 50-60% mid-graft stenosis that was patent to first diag but occluded to OM. She underwent successful balloon angioplasty of the OM to which the graft was occluded. LVEF 60% on cath 07/12/15 with mild elevation of LVEDP Echocardiogram from January 03, 2015 showed LVEF 60%. Last echo of 04/19/16 showed LVEF 55-60%, mod diastolic dysfunction of LV, severe pulm htn with RVSP approx 72 mmHg Pulm htn, managed by Dr Dubois PAD. 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 Abdominal aortic aneurysm screening of February 2016 was negative for abdominal aortic aneurysm S/p radiation and chemo for right lung cancer in mid 2016, managed by Dr Contreras and Sheryl H/o intermittent pneumonia Tobacco use quit in early 2012 Hypertension COPD with associated pulm hypertension Hyperlipidemia, controlled Hypothyroidism being treated with thyroid replacement therapy Carotid u/s from July 2014 showed minimal bilat carotid arterial disease without evidence of hemodynamic significance Mild hyperglycemia, suggestive of borderline DM II, on blood work of 07/12/15 Thank you for your consultation. Please call me if you have any questions. Paddy Funk MD, FACP, FACC, FSCAI, FHRS, CCDS Interventional Cardiology Cardiac Electrophysiology Vascular Medicine and Endovascular Interventions Melanie FUNK MD May 18, 2017 12:39 pm
--- NOTE | 2017-05-18 13:01 | Occupational Therapy Eval ---
OT Evaluation-General/PLF Medical Diagnosis Admission Date May 14, 2017 at 22:20 Medical Diagnosis: ORIF right hip, fx right humerus Onset Date: May 14, 2017 Therapy Diagnosis Therapy Diagnosis: Decreased ADL skills Height/Weight Height (Feet): 5 Height (Inches): 0.00 Weight (Pounds): 119 Weight (Ounces): 9.0 Precautions Precautions/Isolations: Fall Prevention, Standard Precautions Safety Interventions: None Weight Bear Status Weight Bearing Restriction: Partial Weight Bearing Location Restriction: R LE NWB right UE. Treated conservatively Referral Physician: Dr. Deras Referral Reason: Activity Tolerance, Self Care, Evaluation/Treatment, Strengthening/ROM Medical History Pertinent Medical History: CABG, CAD, COPD, HTN, PVD Additional Medical History lobectomy, vascular sx Current History Pt. recently in hospital for pneumonia. Pt. fx left UE 2 years ago. Fell at home while tripping over oxygen tubing. Laid on floor for 24 hours. Reviewed History: Yes Social History Home: Single Level Current Living Status: Alone Entry Into Home: Stairs With Railing Steps Into Home: 4 ADL-Prior Level of Function ADL PLOF Comments Pt. states that she was independent with daily tasks. DME/Equipment: Bath Chair, Tub/Shower DME/Equipment Comments Pt. has walker but doesnt use. 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 reports pain with movement in upper/lower right exteremities. does not report number. Nursing aware. Appearance Pt. in bed. Agrees to work with therapy. Mental Status/Objective Patient Orientation: Person, Place Attachments: Lai Catheter, IV, Oxygen Current Glasses/Contacts: Yes Upper Extremity ROM Right upper extremity in sling. NWB. Left NT due to pain overall and fatigue. Pt. has significant bruising and swelling in right UE. Right UE elevated on pillow with ice after treatment. Left UE sustained fx 2 years ago. ADL-Treatment Functional [place] Measure 0=Not Assessed/NA 4=Minimal Assistance 1=Total Assistance 5=Supervision or Setup 2=Maximal Assistance 6=Modified [place] 3=Moderate Assistance 7=Complete IndependenceIRFPAI Quality Coding Scale 6 Independent with activity with or without an assistive device 5 Patient requires set up or clean up by helper. Patient completes activity by themselves 4 Supervision or touching assist (CGA). [place] provide cues , steadying assist 3 The helper provides less than half the effort to complete the activity 2 The helper provides more than half the effort to complete the activity 1 Dependent. The helper does all the effort to complete an activity 7 Patient refused to complete or attempt activity 9 The patient did not perform the activity before the current illness or injury 88 Not attempted due to Medical conditions or safety concerns Grooming (FIM): 5 (Set up to comb hair after it was given to her.) Lower Body Dressing (FIM): 1 (Dependent to don socks.) Toileting (FIM): 1 (Incontinent of stool in bed. Dependent to cleanse rear hod[place] area. Pt. has catheter. ) Transfers (B, C, W/C) (FIM): 1 (Dependent x 1-2 for supine-sit and sit-stand/ pivot to chair. Pt. very fearful and in pain. PT focused on transfer training while OT assisted with transfers and educated on need for ADL assist, as well as education for rehab goals, and discharge planning. Pt. verbalizes understanding and up in chair after treatment with all needs met.) Education OT Patient Education: Correct positioning, Modified ADL techniques, Progress toward Goal/Update tx plan, Purpose of tx/functional activities, Reviewed precautions, Rehab process, Transfer techniques Teaching Recipient: Patient Teaching Methods: Demonstration, Discussion Response to Teaching: Verbalize Understanding, Return Demonstration OT Short Term Goals Short Term Goals Time Frame: Jun 01, 2017 Eating(FIM): 5 Grooming(FIM): 5 Bathing(FIM): 3 Upper Body Dressing(FIM): 3 Toileting(FIM): 3 Transfers (B,C,W/C) (FIM): 3 Toilet/Commode Transfer(FIM): 3 Additional Short Term Goals: 1-Demonstrate ADL Tasks, 2-Verbalize Understanding , 3-ImproveStrength/Alexi 1=Demonstrate adherence to instructed precautions during ADL tasks. 2=Patient will verbalize/demonstrate understanding of assistive devices/ modifications for ADL. 3=Patient will improve strength/tolerance for activity to enable patient to perform ADL's. OT Loan Documents Closer Goals Alf Goals Time Frame: Jun 15, 2017 Eating (FIM): 6 Grooming(FIM): 5 Bathing(FIM): 5 Upper Body Dressing(FIM): 5 Lower Body Dressing(FIM): 5 Toileting(FIM): 6 Transfers (B,C,W/C) (FIM): 6 Toilet/Commode Transfer(FIM): 6 Shower Transfer(FIM): 4 Additional Goals: 1-Demonstrate ADL Tasks, 2-Verbalize Understanding, 3- ImproveStrength/Alexi 1=Demonstrate adherence to instructed precautions during ADL tasks. 2=Patient will verbalize/demonstrate understanding of assistive devices/ modifications for ADL. 3=Patient will improve strength/tolerance for activity to enable patient to perform ADL's. OT Education/Plan Problem List/Assessment Assessment: Decreased Activ Tolerance, Decreased UE Strength, Dependent Transfers, Impaired Bed Mobility, Impaired Coordination, Impaired Funct Balance , Impaired I ADL's, Impaired Self-Care Skills, Restricted Funct UE ROM Discharge Recommendations Plan/Recommendations: Continue POC Therapy D/C Recommendations: Custodial (TCU/NH) Comment Needs to be determined. Pt. is educated on difference between skilled services vs. rehab. Pt. states that she doesn't know when and if she will be ready for rehab. Target Placement SWB vs. inpt. rehab depending on pt's fatigue levels, pain level, and oxygen needs. Treatment Plan/Plan of Care Treatment,Training & Education: Yes Patient would benefit from OT for education, treatment and training to promote independence in ADL's, mobility, safety and/or upper extremity function for ADL' s. Plan of Care: ADL Retraining, Functional Mobility, UE Funct Exercise/Act Treatment Duration: Jun 15, 2017 Frequency: 5 times per week Estimated Hrs Per Day: .25 hour per day Agreement: Yes Rehab Potential: Fair Time/GCodes Start Time: 12:10 Stop Time: 12:35 Total Time Billed (hr/min): 25 Billed Treatment Time 1, EVH x 10minutes, FA x 15minutes partial co-treat with PT. Please see above note for designated roles. ROMY MOCTEZUMA OT May 18, 2017 13:01
[2017-05-18] MEDS: FUROSEMIDE 20 MG (LASIX) TAB PO SCH (13:18)
[2017-05-18] MEDS: ASPIRIN E.C. 81 MG (ECOTRIN) TAB PO SCH (13:18)
--- NOTE | 2017-05-18 13:21 | Physical Therapy Evaluation ---
PT Evaluation-General Medical Diagnosis Admission Date May 14, 2017 at 22:20 Medical Diagnosis: ORIF right hip, fx right humerus Onset Date: May 14, 2017 Therapy Diagnosis Therapy Diagnosis: weakness; abn gait Height/Weight Height (Feet): 5 Height (Inches): 0.00 Weight (Pounds): 119 Weight (Ounces): 9.0 Precautions Precautions/Isolations: Fall Prevention, Standard Precautions Weight Bear Status Right Lower Extremity: Right Partial Weight Bearing (50%) Left Lower Extremity: Left Full Weight Bearing Referral Physician: Dr. Deras Reason for Referral: Evaluation/Treatment Medical History Pertinent Medical History: CABG, CAD, COPD, HTN, PVD Additional Medical History Pt reports left humerus fx approx 2 months ago due to fall a ousmane. Current History Pt tripped over her oxygen tubing at home, fell and sustained right hip fracture and right humerus fracture. Hip repaired ORIF, PWB; right UE in a sling and to be NWB. Pt was on the floor approx 24 hours. 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 Reports she has not driven in the recent past and her son has been doing her grocery shopping. PT Evaluation-Current Subjective Agrees to PT. Apprehensive about getting out of bed. Pain Numeric Pain Scale: 6 Location: Right Location Body Site: Arm Pain Description: Ache Pt/Family Goals Unsure of her discharge plan at this time. Objective Patient Orientation: Person, Place, Time, Situation Problem Solving: Fair Attachments: Oxygen, Lai Catheter ROM/Strength ROM Lower Extremities WFL; painful on the right Strength Lower Extremities left LE WFL; right side not tested Integumentary/Posture Integumentary refer to nursing notes. Bowel Incontinence: Yes Bladder Incontinence: Lai Cath Posture rounded shoulders and thoracic kyphosis Neuromuscular (Tone, Coordination, Reflexes) intact Sensory Vision: Functional Hearing: Functional Hand Dominance: Right Sensation Right Lower Extremit: Intact Sensation Left Lower Extremity: Intact Transfers Functional [place] Measure 0=Not Assessed/NA 4=Minimal Assistance 1=Total Assistance 5=Supervision or Setup 2=Maximal Assistance 6=Modified [place] 3=Moderate Assistance 7=Complete [place] Transfers (B, C, W/C) (FIM): 2 Supine to/from Sit: 2 Sit to/from Stand: 2 bed t/f WC(FIM only if WC use): 2 max assist with transfers at this time due to PWB right LE and NWB right UE (in a sling). Pt is able to stand on her left LE and fully bear weight. Balance Sitting Static: Fair Sitting Dynamic: Fair Treatment Transferred pt from bed to chair; max assist. Co treat with OT due to the extensive need for assist and multiple attachements. Assessment/Needs Post fall with right hip and humerus fracture. She is limited by the fact that she is NWB right UE and PWB right LE; she requires max assist with tranfers at this time. She will likely improve in her ability to transfer but would expect a SNF would likely be necessary for rehab services due to the the nature of NWB/ PWB status of the right side and need for additional healing time prior to her being able to be home to care for herself. She is pleasant and cooperative, but will take extra time for progress. Rehab Potential: Fair PT Psychiatric Aide Goals Assisted Goals PT Psychiatric Aide Goals Time Frame: May 24, 2017 Transfers (B,C,W/C) (FIM): 3 PT Plan Problem List Problem List: Activity Tolerance, Functional Strength, Safety, Balance, Transfer, Bed Mobility Treatment/Plan Treatment Plan: Continue Plan of Care Treatment Plan: Bed Mobility, Education, Functional Activity Alexi, Functional Strength, Gait, Safety, Therapeutic Exercise, Transfers Treatment Duration: May 24, 2017 Frequency: 11 times per week Estimated Hrs Per Day: .5 hour per day Patient and/or Family Agrees t: Yes Safety Risks/Education Patient Education: Transfer Techniques, Reviewed Precautions, Safety Issues Teaching Recipient: Patient Teaching Methods: Discussion Response to Teaching: Reinforcement Needed Discharge Recommendations Therapy D/C Recommendations: Usp (TCU/NH) Time/GCodes Time In: 1205 Time Out: 1225 Total Billed Treatment Time: 20 Total Billed Treatment visit EVM 20 JOY FARMER PT May 18, 2017 13:20
[2017-05-18] MEDS: metFORMIN 500 MG (GLUCOPHAGE) TAB PO SCH (17:30)
[2017-05-18] MEDS: APIXABAN 2.5 MG (ELIQUIS) TABLET PO SCH (21:02)
[2017-05-18] MEDS: LEVOTHYROXINE 50 MCG (LEVOTHROID) TAB PO SCH (21:03)
[2017-05-18] MEDS: ATORVASTATIN 40 MG (LIPITOR) TABLET PO SCH (21:03)
[2017-05-18] MEDS: meTOprolol TARTRATE 50 MG (LOPRESSOR) TAB PO SCH (21:03)
[2017-05-19] MEDS: inSUlin (REGULAR) HUMAN 1 UNIT/0.01 ML (CHARGE PER UNIT) SC SCH ×6 (00:11→20:02)
[2017-05-19 00:55] VITALS: BP 100/57
[2017-05-19] MEDS ORDERED: DEXTROSE 50% 50 ML (IMS) SYR ONE (01:20)
[2017-05-19] MEDS: NS IV 1000 ML 1,000 ML IV SCH (01:28)
[2017-05-19] MEDS ORDERED: DEXTROSE 50% 50 ML (IMS) SYR IV ONE (01:30)
[2017-05-19] MEDS: KCL 20 MEQ TAB (K-DUR) PO SCH (01:31)
[2017-05-19] MEDS: MAGNESIUM 1 GM/100 ML IVPB 100 ML IV SCH (01:31)
[2017-05-19] MEDS: POTASSIUM CL 10MEQ/50ML IVPB 50 ML IV SCH (01:31)
[2017-05-19] MEDS: RT-ALBUTEROL/IPRATROPIUM 3 ML (DUONEB) VIAL INH SCH ×4 (01:40→19:44)
[2017-05-19 04:00] VITALS: BP 108/65
[2017-05-19] MEDS ORDERED: NS (IVPB) 50 ML ONE (04:15)
[2017-05-19] MEDS ORDERED: CEFEPIME 1 GM (MAXIPIME) VIAL ONE (04:15)
[2017-05-19] MEDS: PANTOPRAZOLE 40 MG (PROTONIX) TAB PO SCH (06:26)
[2017-05-19] MEDS: CEFEPIME 1 GM/NS 50 ML IV SCH ×2 (06:27)
[2017-05-19 06:44] LABS: BASOPHILS # (AUTO) 0.1 10^3/uL (0.0-0.1); BASOPHILS % (AUTO) 1 % (0-10); EOSINOPHILS # (AUTO) 0.3 10^3/uL (0.0-0.3); EOSINOPHILS % (AUTO) 2 % (0-10); HEMATOCRIT 28 % (35-52); HEMOGLOBIN 8.6 G/DL (11.5-16.0); LYMPHOCYTES # (AUTO) 0.7 X 10^3 (1.0-4.0); LYMPHOCYTES % (AUTO) 5 % (12-44); MEAN CORPUSCULAR HEMOGLOBIN 29 PG (25-34); MEAN CORPUSCULAR HGB CONC 31 G/DL (32-36); MEAN CORPUSCULAR VOLUME 92 FL (80-99); MEAN PLATELET VOLUME 9.8 FL (7.4-10.4); MONOCYTES # (AUTO) 1.2 X 10^3 (0.0-1.0); MONOCYTES % (AUTO) 9 % (0-12); NEUTROPHILS # (AUTO) 11.1 X 10^3 (1.8-7.8); NEUTROPHILS % (AUTO) 83 % (42-75); PLATELET COUNT 328 10^3/uL (130-400); RED BLOOD COUNT 2.99 10^6/uL (4.35-5.85); RED CELL DISTRIBUTION WIDTH 15.2 % (10.0-14.5); WHITE BLOOD COUNT 13.3 10^3/uL (4.3-11.0)
[2017-05-19 07:01] LABS: ALANINE AMINOTRANSFERASE 23 U/L (0-55); ALBUMIN 2.1 GM/DL (3.2-4.5); ALKALINE PHOSPHATASE 77 U/L (40-136); BILIRUBIN,TOTAL 0.6 MG/DL (0.1-1.0); BUN/CREATININE RATIO 16; CALCIUM 7.8 MG/DL (8.5-10.1); CARBON DIOXIDE 29 MMOL/L (21-32); CHLORIDE 98 MMOL/L (98-107); CREATININE SERUM 0.64 MG/DL (0.60-1.30); GFR ESTIMATED > 60; GLUCOSE 158 MG/DL (70-105); POTASSIUM 4.1 MMOL/L (3.6-5.0); SODIUM 136 MMOL/L (135-145); TOTAL PROTEIN 4.5 GM/DL (6.4-8.2)
[2017-05-19 08:00] VITALS: BP 109/63
--- NOTE | 2017-05-19 08:02 | Diagnostic Imaging Report ---
EXAM: CHEST 1 VIEW, AP/PA ONLY INDICATION: Right lower lobe pneumonia. COMPARISON: Chest radiograph 05/18/2017. FINDINGS: Stable consolidation in the right lung base and small right pleural effusion. Sternotomy with mediastinal markers. Calcified aorta. Normal heart size and central pulmonary vascularity. Tiny left pleural effusion or thickening. Right IJ CVC tip mid SVC. Bilateral proximal humerus fracture deformities, greater displaced on the right. IMPRESSION: Stable exam including consolidation in the right lung base and small right pleural effusion. Dictated by: Dictated on workstation # [id number]
[2017-05-19] MEDS: meTOprolol TARTRATE 50 MG (LOPRESSOR) TAB PO SCH ×2 (08:33→20:03)
[2017-05-19] MEDS: metFORMIN 500 MG (GLUCOPHAGE) TAB PO SCH ×2 (08:33→16:10)
[2017-05-19] MEDS: APIXABAN 2.5 MG (ELIQUIS) TABLET PO SCH ×2 (08:34→20:03)
[2017-05-19] MEDS: oxyCODONE/APAP 5/325MG (PERCOCET 5) TABLET PO PRN ×3 (08:38→23:43)
[2017-05-19] MEDS ORDERED: PANTOPRAZOLE 40 MG (PROTONIX) TAB PO SCH (09:00)
--- NOTE | 2017-05-19 09:28 | Progress Note-Standard ---
Standard Progress Note Progress Notes/Assess & Plan Date Seen by Provider: May 19, 2017 Time Seen by Provider: 09:27 Progress/Assessment & Plan Pt. feeling better Vital Signs Date Time Temp Pulse Resp B/P (MAP) Pulse Ox O2 Delivery O2 Flow Rate FiO2 05/16/17 06:00 89 16 139/82 (101) 96 Nasal Cannula 4.00 05/16/17 05:00 83 13 144/82 (102) 96 Nasal Cannula 4.00 05/16/17 04:34 97.6 Nasal Cannula 4.00 05/16/17 04:00 89 15 139/82 (101) 96 Nasal Cannula 4.00 05/16/17 04:00 Nasal Cannula 4.00 05/16/17 03:00 94 15 143/102 (116) 96 Nasal Cannula 4.00 05/16/17 02:00 89 13 146/107 (120) 96 Nasal Cannula 4.00 05/16/17 01:00 99 05/16/17 01:00 100 21 153/89 (110) 96 Nasal Cannula 4.00 05/16/17 00:00 93 14 135/101 (112) 97 Nasal Cannula 4.00 05/16/17 00:00 Nasal Cannula 4.00 05/15/17 23:34 98.7 Nasal Cannula 4.00 05/15/17 23:00 90 15 154/88 (110) 97 Nasal Cannula 4.00 05/15/17 22:00 98 19 166/90 (115) 95 Nasal Cannula 4.00 05/15/17 21:00 94 17 157/85 (109) 95 Nasal Cannula 4.00 05/15/17 20:00 101 20 158/84 (108) 96 Nasal Cannula 4.00 05/15/17 20:00 98.3 Nasal Cannula 4.00 05/15/17 20:00 Nasal Cannula 4.00 05/15/17 19:00 94 05/15/17 19:00 96 25 141/84 (103) 96 Nasal Cannula 4.00 05/15/17 18:00 Nasal Cannula 4.00 05/15/17 18:00 96 25 141/82 (101) 94 Nasal Cannula 4.00 05/15/17 17:00 87 26 159/81 (107) 95 Nasal Cannula 4.00 05/15/17 16:10 98.4 05/15/17 16:05 Nasal Cannula 4.00 05/15/17 16:00 98 22 142/79 (100) 96 Nasal Cannula 4.00 05/15/17 15:00 98 20 138/87 (104) 94 Nasal Cannula 4.00 05/15/17 14:00 89 18 138/80 (99) 96 Nasal Cannula 4.00 05/15/17 13:12 98.1 93 155/89 05/15/17 13:00 98 23 150/78 (102) 98 Nasal Cannula 4.00 05/15/17 13:00 88 05/15/17 12:45 Nasal Cannula 4.00 05/15/17 12:03 98.2 05/15/17 12:00 101 14 124/93 (103) 98 Nasal Cannula 4.00 05/15/17 11:00 90 17 146/73 (97) 97 Nasal Cannula 4.00 05/15/17 10:20 96.4 89 20 144/75 96 Nasal Cannula 4.00 05/15/17 10:02 96.7 92 20 126/71 98 Nasal Cannula 4.00 05/15/17 10:00 90 17 126/71 (89) 99 Nasal Cannula 4.00 05/15/17 09:09 96.7 94 18 117/63 99 Nasal Cannula 4.00 05/15/17 09:00 Nasal Cannula 4.00 05/15/17 09:00 86 18 99/60 (73) 100 Nasal Cannula 4.00 05/15/17 08:36 97.1 98 18 117/62 (80) 96 Nasal Cannula 4.00 05/15/17 08:00 93 16 112/65 (81) 97 Nasal Cannula 4.00 I & O 05/16/17 07:00 Intake Total 4217 ml Output Total 1600 ml Balance 2617 ml Laboratory Tests Test 05/15/17 08:27 05/15/17 09:04 05/15/17 10:20 05/15/17 10:48 Range/Units Glucometer 34 *L 106 52 *L 83 70-110 MG/DL Test 05/15/17 11:33 05/15/17 12:07 05/15/17 12:29 05/15/17 13:40 Range/Units Glucometer 79 77 70-110 MG/DL Lab Scanned Report Transfusion Reaction Form [id number] Hemoglobin 9.2 #L 11.5-16.0 G/DL Hematocrit 27 L 35-52 % Test 05/15/17 14:31 05/15/17 15:27 05/15/17 16:25 05/15/17 17:57 Range/Units Glucometer 58 *L 63 L 60 *L 58 *L 70-110 MG/DL Test 05/15/17 18:44 05/15/17 18:52 05/15/17 20:09 05/15/17 20:59 Range/Units Hemoglobin 9.2 L 11.5-16.0 G/DL Hematocrit 27 L 35-52 % Glucometer 81 144 H 112 H 70-110 MG/DL Test 05/15/17 23:02 05/16/17 00:25 05/16/17 04:20 Range/Units Glucometer 116 H 70-110 MG/DL Hemoglobin 9.2 L 9.3 L 11.5-16.0 G/DL Hematocrit 28 L 28 L 35-52 % White Blood Count 14.7 H 4.3-11.0 10^3/uL Red Blood Count 3.17 L 4.35-5.85 10^6/uL Mean Corpuscular Volume 87 80-99 FL Mean Corpuscular Hemoglobin 29 25-34 PG Mean Corpuscular Hemoglobin Concent 34 32-36 G/DL Red Cell Distribution Width 15.0 H 10.0-14.5 % Platelet Count 295 130-400 10^3/uL Mean Platelet Volume 9.7 7.4-10.4 FL Neutrophils (%) (Auto) 92 H 42-75 % Lymphocytes (%) (Auto) 2 L 12-44 % Monocytes (%) (Auto) 5 0-12 % Eosinophils (%) (Auto) 1 0-10 % Basophils (%) (Auto) 0 0-10 % Neutrophils # (Auto) 13.6 H 1.8-7.8 X 10^3 Lymphocytes # (Auto) 0.3 L 1.0-4.0 X 10^3 Monocytes # (Auto) 0.7 0.0-1.0 X 10^3 Eosinophils # (Auto) 0.1 0.0-0.3 10^3/uL Basophils # (Auto) 0.0 0.0-0.1 10^3/uL Sodium Level 129 L 135-145 MMOL/L Potassium Level 3.9 3.6-5.0 MMOL/L Chloride Level 94 L 98-107 MMOL/L Carbon Dioxide Level 28 21-32 MMOL/L Anion Gap 7 5-14 MMOL/L Blood Urea Nitrogen 17 7-18 MG/DL Creatinine 0.70 0.60-1.30 MG/DL Estimat Glomerular Filtration Rate > 60 BUN/Creatinine Ratio 24 Glucose Level 95 70-105 MG/DL Calcium Level 7.4 L 8.5-10.1 MG/DL Phosphorus Level 2.2 L 2.3-4.7 MG/DL Magnesium Level 1.8 1.8-2.4 MG/DL Total Bilirubin 0.7 0.1-1.0 MG/DL Aspartate Amino Transf (AST/SGOT) 37 H 5-34 U/L Alanine Aminotransferase (ALT/SGPT) 32 0-55 U/L Alkaline Phosphatase 71 40-136 U/L Total Protein 4.5 L 6.4-8.2 GM/DL Albumin 2.1 L 3.2-4.5 GM/DL RLE--nvi distally. RUE decreased echymosis and swelling R IT femur fx and R surgical neck of humerus fx plan for ORIF R hip later today pt would like to go to [facility] for recovery Final Diagnosis feeling better Vital Signs Date Time Temp Pulse Resp B/P (MAP) Pulse Ox O2 Delivery O2 Flow Rate FiO2 05/19/17 08:00 99.2 113 22 109/63 (78) 94 High Flow N/C 4.00 05/19/17 04:00 98.0 100 18 108/65 (79) 93 High Flow N/C 4.00 05/19/17 01:41 93 High Flow N/C 4.00 05/19/17 00:55 97.3 80 18 100/57 (71) 96 High Flow N/C 4.00 05/18/17 20:10 97.8 104 18 109/64 (79) 95 High Flow N/C 4.00 05/18/17 20:00 High Flow N/C 6.00 05/18/17 19:42 92 High Flow N/C 4.00 05/18/17 17:45 99.0 05/18/17 16:54 98.2 100 18 130/67 (88) 92 High Flow N/C 4.00 05/18/17 15:35 High Flow N/C 6.00 05/18/17 15:24 98 High Flow N/C 4.00 05/18/17 14:00 87 16 120/71 (87) 97 High Flow N/C 6.00 05/18/17 13:00 89 05/18/17 13:00 81 19 115/99 (104) 98 High Flow N/C 6.00 05/18/17 12:00 99.0 High Flow N/C 6.00 05/18/17 12:00 High Flow N/C 6.00 05/18/17 12:00 95 20 115/72 (86) 89 High Flow N/C 6.00 05/18/17 11:00 100 15 134/80 (98) 93 High Flow N/C 6.00 05/18/17 10:00 114 15 126/81 (96) 93 High Flow N/C 6.00 05/18/17 09:59 93 High Flow N/C 4.00 I & O 05/19/17 07:00 Intake Total 1962 ml Output Total 2450 ml Balance -488 ml Laboratory Tests Test 05/18/17 13:18 05/18/17 16:20 05/18/17 19:56 05/18/17 23:55 Range/Units Glucometer 167 H 241 H 205 H 64 L 70-110 MG/DL Test 05/19/17 00:47 05/19/17 01:08 05/19/17 01:16 05/19/17 01:25 Range/Units Glucometer 48 *L 43 *L 40 *L 35 *L 70-110 MG/DL Test 05/19/17 01:31 05/19/17 02:01 05/19/17 02:57 05/19/17 04:21 Range/Units Glucometer 245 H 112 H 111 H 124 H 70-110 MG/DL Test 05/19/17 06:30 05/19/17 08:16 Range/Units White Blood Count 13.3 H 4.3-11.0 10^3/uL Red Blood Count 2.99 L 4.35-5.85 10^6/uL Hemoglobin 8.6 L 11.5-16.0 G/DL Hematocrit 28 L 35-52 % Mean Corpuscular Volume 92 80-99 FL Mean Corpuscular Hemoglobin 29 25-34 PG Mean Corpuscular Hemoglobin Concent 31 L 32-36 G/DL Red Cell Distribution Width 15.2 H 10.0-14.5 % Platelet Count 328 130-400 10^3/uL Mean Platelet Volume 9.8 7.4-10.4 FL Neutrophils (%) (Auto) 83 H 42-75 % Lymphocytes (%) (Auto) 5 L 12-44 % Monocytes (%) (Auto) 9 0-12 % Eosinophils (%) (Auto) 2 0-10 % Basophils (%) (Auto) 1 0-10 % Neutrophils # (Auto) 11.1 H 1.8-7.8 X 10^3 Lymphocytes # (Auto) 0.7 L 1.0-4.0 X 10^3 Monocytes # (Auto) 1.2 H 0.0-1.0 X 10^3 Eosinophils # (Auto) 0.3 0.0-0.3 10^3/uL Basophils # (Auto) 0.1 0.0-0.1 10^3/uL Sodium Level 136 135-145 MMOL/L Potassium Level 4.1 3.6-5.0 MMOL/L Chloride Level 98 98-107 MMOL/L Carbon Dioxide Level 29 21-32 MMOL/L Anion Gap 9 5-14 MMOL/L Blood Urea Nitrogen 10 7-18 MG/DL Creatinine 0.64 0.60-1.30 MG/DL Estimat Glomerular Filtration Rate > 60 BUN/Creatinine Ratio 16 Glucose Level 158 H 70-105 MG/DL Calcium Level 7.8 L 8.5-10.1 MG/DL Total Bilirubin 0.6 0.1-1.0 MG/DL Aspartate Amino Transf (AST/SGOT) 21 5-34 U/L Alanine Aminotransferase (ALT/SGPT) 23 0-55 U/L Alkaline Phosphatase 77 40-136 U/L Total Protein 4.5 L 6.4-8.2 GM/DL Albumin 2.1 L 3.2-4.5 GM/DL Glucometer 557 *H 70-110 MG/DL RLE--dressing intact. No calf tenderness. NVI distally s/p R hip Im shay mobilize as able will likely require NH placement CARMEN CORDERO MD May 19, 2017 09:28
--- NOTE | 2017-05-19 10:53 | Progress Note-Hospitalist ---
Subjective HPI/CC On Admission Date Seen by Provider: May 19, 2017 Time Seen by Provider: 09:00 Reports some burning around hip surgery/pending site with less shortness of breath. She asks about home medications which have not yet been resumed. She reports minimal sputum production and denies chest pain. Subjective/Events-last exam Feeling better with decreased hip pain. As long she doesn't move her right arm there is minimal pain around her humeral fracture. She reports decreased cough with minimal sputum production. She denies chills or fever. Objective Exam Vital Signs Vital Signs Date Time Temp Pulse Resp B/P (MAP) Pulse Ox O2 Delivery O2 Flow Rate FiO2 05/14/17 19:08 96.4 117 20 90/66 (74) 93 Room Air 4.00 Capillary Refill : Less Than 3 SecondsLess Than 3 Seconds General Appearance: No Apparent Distress, Chronically ill Respiratory: No Accessory Muscle Use, No Respiratory Distress, Other (Chest clear anteriorly there are some scattered rales and rhonchi with diminished breath sounds in both bases posteriorly no wheezing noted.) Cardiovascular: Regular Rate, Rhythm, No Edema, No Gallop, No JVD, No Murmur, Normal Peripheral Pulses Gastrointestinal: Normal Bowel Sounds, No Organomegaly, No Pulsatile Mass, Non Tender, Soft Extremity: Other (Few's purpura right upper extremity with some decrease in swelling. Mild swelling about the right hip without purpura trace edema of the right lower extremity none on left.) Results/Procedures Lab Laboratory Tests 05/19/17 06:30 Assessment/Plan Assessment and Plan Assess & Plan/Chief Complaint 1. Right hip and humeral head fracture status post pinning of the right hip conservative management right shoulder. We will consult physical therapy and discussing importance of moving as the patient had been resistant. 2. Right-sided pneumonia on cefepime due to reported past history of Pseudomonas no evidence for sepsis currently. 3. 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 4. COPD with pulmonary hypertension secondary to past tobaccoism 5. Multifactorial frailty prognosis guarded. 6. Anemia blood loss from fractures plus likely component of chronic disease no evidence for hemodynamic instability we'll continue to monitor. 7. Type II diabetes mellitus with labile blood glucose. We'll switch to 5900- calorie ADA diet and change fingersticks to before meals and at bedtime. Last night her blood sugar gotten down to 40 requiring some D50 and this morning's blood sugar of 500 was taken right after she had eaten as she had been on a every 4 hour blood sugar schedule. She also had some candy and was advised to abstain for now. Patient voices understanding. PATY MONROE MD May 19, 2017 10:53
--- NOTE | 2017-05-19 11:50 | Cardiology Progress Note ---
Cardiology SOAP Progress Note Subjective: Some improvement from yesterday. Patient is out of bed and sitting in a chair. Objective: I&O/Vital Signs Vital Sign - Last 12Hours 05/19/17 05/19/17 05/19/17 05/19/17 00:55 01:41 04:00 08:00 Temp 97.3 98.0 99.2 Pulse 80 100 113 Resp 18 18 22 B/P (MAP) 100/57 (71) 108/65 (79) 109/63 (78) Pulse Ox 96 93 93 94 O2 Delivery High Flow N/C High Flow N/C High Flow N/C High Flow N/C O2 Flow Rate 4.00 4.00 4.00 4.00 05/19/17 05/19/17 08:00 10:21 Pulse Ox 91 O2 Delivery High Flow N/C High Flow N/C O2 Flow Rate 6.00 3.50 Intake and Output 05/19/17 00:00 Intake Total 1142 ml Output Total 1400 ml Balance -258 ml Weight (Pounds): 121 Weight (Ounces): 9.0 Weight (Calculated Kilograms): 54.287118 Constitutional: AAO x 3 Respiratory: lungs clear to percussion, lungs clear to auscultation Cardiovascular: regular rate-rhythm, S1 and S2 Gastrointestional: No tender, No soft, No round, No distended, No pulsatile mass, No organomegaly, No guarding, No rebound, No tenderness, No hernia, No mass, No audible bowel sounds, No abnormal bowel sounds, No abdominal bruits, No spleenomegaly, No other Extremities: tenderness Neurologic/Psychiatric: 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 Multiple other small bruises throughout the body.), No jaundice, No mottled, No pallor, No rash, No tattoos/piercings, No ulcerations, No rash on exposed areas, No ulcerations on exposed areas, No other Results/Procedures: Labs Laboratory Tests 05/18/17 13:18: Glucometer 167H 05/18/17 16:20: Glucometer 241H 05/18/17 19:56: Glucometer 205H 05/18/17 23:55: Glucometer 64L 05/19/17 00:47: Glucometer 48*L 05/19/17 01:08: Glucometer 43*L 05/19/17 01:16: Glucometer 40*L 05/19/17 01:25: Glucometer 35*L 05/19/17 01:31: Glucometer 245H 05/19/17 02:01: Glucometer 112H 05/19/17 02:57: Glucometer 111H 05/19/17 04:21: Glucometer 124H 05/19/17 06:30: White Blood Count 13.3H, Red Blood Count 2.99L, Hemoglobin 8.6L, Hematocrit 28L , Mean Corpuscular Volume 92, Mean Corpuscular Hemoglobin 29, Mean Corpuscular Hemoglobin Concent 31L, Red Cell Distribution Width 15.2H, Platelet Count 328, Mean Platelet Volume 9.8, Neutrophils (%) (Auto) 83H, Lymphocytes (%) (Auto) 5L , Monocytes (%) (Auto) 9, Eosinophils (%) (Auto) 2, Basophils (%) (Auto) 1, Neutrophils # (Auto) 11.1H, Lymphocytes # (Auto) 0.7L, Monocytes # (Auto) 1.2H, Eosinophils # (Auto) 0.3, Basophils # (Auto) 0.1, Sodium Level 136, Potassium Level 4.1, Chloride Level 98, Carbon Dioxide Level 29, Anion Gap 9, Blood Urea Nitrogen 10, Creatinine 0.64, Estimat Glomerular Filtration Rate > 60, BUN/ Creatinine Ratio 16, Glucose Level 158H, Calcium Level 7.8L, Total Bilirubin 0.6 , Aspartate Amino Transf (AST/SGOT) 21, Alanine Aminotransferase (ALT/SGPT) 23, Alkaline Phosphatase 77, Total Protein 4.5L, Albumin 2.1L 05/19/17 08:16: Glucometer 557*H Microbiology 05/14/17 Blood Culture - Preliminary, Resulted No growth 05/14/17 MRSA Screen - Final, Complete MRSA not isolated A/P: Assessment/Dx: Hip and right arm fracture. Right lower lobe pneumonia/sepsis CAD/CABG, Paroxysmal atrial fibrillation, Diastolic dysfunction, Tricuspid regurgitation Plan: Outpatient of Dr. Pal. Hip fracture: post hip surgery. Slow improvement. Might require inpatient rehabilitation. Pneumonia/sepsis: Deferred to Dr. Morris and Dr. Dubois. CAD. S/p CABG Feb [address] Guzman in [place], [place]. She had LEMUS to LAD, SVG to PDA, and sequential SVG to diagonal and OM. Last cardiac cath was on 07/12/15 and it showed multivessel CAD with patent SVG to distal RCA, patent LEMUS to distal LAD, and a sequential SVG with 50-60% mid-graft stenosis that was patent to first diag but occluded to OM. She underwent successful balloon angioplasty of the OM to which the graft was occluded. LVEF 60% on cath 07/12/15 with mild elevation of LVEDP Echocardiogram from January 03, 2015 showed LVEF 60%. Last echo of 04/19/16 showed LVEF 55-60%, mod diastolic dysfunction of LV, severe pulm htn with RVSP approx 72 mmHg Pulm htn, managed by Dr Dubois PAD. 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 Abdominal aortic aneurysm screening of February 2016 was negative for abdominal aortic aneurysm S/p radiation and chemo for right lung cancer in mid 2016, managed by Dr Tim H/o intermittent pneumonia Tobacco use quit in early 2012 Hypertension COPD with associated pulm hypertension Hyperlipidemia, controlled Hypothyroidism being treated with thyroid replacement therapy Carotid u/s from July 2014 showed minimal bilat carotid arterial disease without evidence of hemodynamic significance Mild hyperglycemia, suggestive of borderline DM II, on blood work of 07/12/15 Thank you for your consultation. Please call me if you have any questions. Paddy Lou MD, FACP, FACC, FSCAI, FHRS, CCDS Interventional Cardiology Cardiac Electrophysiology Vascular Medicine and Endovascular Interventions Melanie LOU MD May 19, 2017 11:50 am
[2017-05-19 12:00] VITALS: BP 111/58
--- NOTE | 2017-05-19 12:00 | Physical Therapy Daily Note ---
PT Daily Note-Current Subjective Agreeable to sit up in the chair. Reports she had a BM today. Transfers Functional [place]ahan Measure 0=Not Assessed/NA 4=Minimal Assistance 1=Total Assistance 5=Supervision or Setup 2=Maximal Assistance 6=Modified [place] 3=Moderate Assistance 7=Complete IndependenceIRFPAI Quality Coding Scale 6 Independent with activity with or without an assistive device 5 Patient requires set up or clean up by helper. Patient completes activity by themselves 4 Supervision or touching assist (CGA). Paola provide cues , steadying assist 3 The helper provides less than half the effort to complete the activity 2 The helper provides more than half the effort to complete the activity 1 Dependent. The helper does all the effort to complete an activity 7 Patient refused to complete or attempt activity 9 The patient did not perform the activity before the current illness or injury 88 Not attempted due to Medical conditions or safety concerns Weight Bearing Right Lower Extremity: Right Partial Weight Bearing (50%) Left Lower Extremity: Left Full Weight Bearing Treatments Sup to sit EOB with mod asssit; sling in situ right UE. Sat EOB with CGA. Pt transferred bed to chair with max assist but able to bear weight left. She is PWB right LE and Right UE in a sling. Once in the chair, she performed AP, and LAQ x 10 each. In supine she also performed QS x 10. Up in chair with needs met. Assessment Tolerated transfer welll. PT Short Term Goals Short Term Goals Transfers (B,C,W/C) (FIM): 3 PT Senior Living Goals Chart Collector Goals PT Chart Collector Goals Time Frame: May 24, 2017 Transfers (B,C,W/C) (FIM): 3 PT Plan Problem List Problem List: Activity Tolerance, Functional Strength Treatment/Plan Treatment Plan: Continue Plan of Care Treatment Plan: Bed Mobility, Education, Functional Activity Alexi, Functional Strength, Gait, Safety, Therapeutic Exercise, Transfers Treatment Duration: May 24, 2017 Frequency: 11 times per week Estimated Hrs Per Day: .5 hour per day Patient and/or Family Agrees t: Yes Discharge Recommendations Therapy D/C Recommendations: Prison (TCU/NH) Time/GCodes Time In: 1105 Time Out: 1130 Total Billed Treatment Time: 25 Total Billed Treatment visit FA 15 EX 10 JOY FARMER PT May 19, 2017 12:00
[2017-05-19] MEDS: FUROSEMIDE 20 MG (LASIX) TAB PO SCH (12:09)
[2017-05-19] MEDS: ASPIRIN E.C. 81 MG (ECOTRIN) TAB PO SCH (12:09)
[2017-05-19] MEDS: DICLOFENAC 1% GEL 100 GM (VOLTAREN) TUBE TOP SCH ×2 (13:49→20:03)
[2017-05-19 15:30] VITALS: BP 122/66
[2017-05-19] MEDS: fentaNYL INJECTION 100 MCG/2 ML AMP IV PRN (16:10)
[2017-05-19 20:01] VITALS: BP 127/77
[2017-05-19] MEDS: ATORVASTATIN 40 MG (LIPITOR) TABLET PO SCH (20:03)
[2017-05-19] MEDS: LEVOTHYROXINE 50 MCG (LEVOTHROID) TAB PO SCH (20:03)
[2017-05-20] VITALS: BP 115/60
[2017-05-20] MEDS: RT-ALBUTEROL/IPRATROPIUM 3 ML (DUONEB) VIAL INH SCH ×4 (01:49→20:18)
[2017-05-20] MEDS ORDERED: CEFEPIME 1 GM (MAXIPIME) VIAL ONE (04:23)
[2017-05-20] MEDS ORDERED: NS (IVPB) 50 ML ONE (04:23)
--- NOTE | 2017-05-20 05:29 | Pulmonary Progress Note ---
Subjective Time Seen by Provider: 05:51 Subjective/Events-last exam Pt appears to be much improved. SOB is base line. Exam Exam Vital Signs Date Time Temp Pulse Resp B/P (MAP) Pulse Ox O2 Delivery O2 Flow Rate FiO2 05/20/17 01:49 92 High Flow N/C 3.50 05/20/17 00:00 99.1 87 20 115/60 (78) 94 High Flow N/C 4.00 05/19/17 21:00 High Flow N/C 6.00 05/19/17 20:01 113 127/77 (94) 05/19/17 19:44 95 High Flow N/C 3.50 05/19/17 15:46 92 High Flow N/C 3.50 05/19/17 15:30 97.6 97 18 122/66 (84) 92 High Flow N/C 4.00 05/19/17 12:00 98.9 110 20 111/58 (75) 93 High Flow N/C 4.00 05/19/17 10:21 91 High Flow N/C 3.50 05/19/17 08:00 High Flow N/C 6.00 05/19/17 08:00 99.2 113 22 109/63 (78) 94 High Flow N/C 4.00 I & O 05/20/17 07:00 Intake Total 2100 ml Output Total 1050 ml Balance 1050 ml General Appearance: No Apparent Distress, Chronically ill HEENT: Normal ENT Inspection Neck: Full Range of Motion Respiratory: No Accessory Muscle Use, No Respiratory Distress, Other (Chest clear anteriorly there are some scattered rales and rhonchi with diminished breath sounds in both bases posteriorly no wheezing noted.) Cardiovascular: Regular Rate, Rhythm, No Edema, No Gallop, No JVD, No Murmur, Normal Peripheral Pulses Capillary Refill: Less Than 3 Seconds Gastrointestinal: other (Pouchy) Extremity: Other (Few's purpura right upper extremity with some decrease in swelling. 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
[2017-05-20] MEDS: inSUlin (REGULAR) HUMAN 1 UNIT/0.01 ML (CHARGE PER UNIT) SC SCH ×4 (05:43→21:49)
[2017-05-20] MEDS: CEFEPIME 1 GM/NS 50 ML IV SCH ×2 (06:00)
[2017-05-20] MEDS: PANTOPRAZOLE 40 MG (PROTONIX) TAB PO SCH (06:01)
[2017-05-20] MEDS: oxyCODONE/APAP 5/325MG (PERCOCET 5) TABLET PO PRN ×4 (06:01→20:09)
[2017-05-20] MEDS: metFORMIN 500 MG (GLUCOPHAGE) TAB PO SCH ×2 (06:01→16:07)
[2017-05-20 06:19] LABS: BASOPHILS # (AUTO) 0.1 10^3/uL (0.0-0.1); BASOPHILS % (AUTO) 1 % (0-10); EOSINOPHILS # (AUTO) 0.2 10^3/uL (0.0-0.3); EOSINOPHILS % (AUTO) 2 % (0-10); HEMATOCRIT 26 % (35-52); LYMPHOCYTES # (AUTO) 0.7 X 10^3 (1.0-4.0); LYMPHOCYTES % (AUTO) 7 % (12-44); MEAN CORPUSCULAR HEMOGLOBIN 29 PG (25-34); MEAN CORPUSCULAR HGB CONC 31 G/DL (32-36); MEAN CORPUSCULAR VOLUME 93 FL (80-99); MEAN PLATELET VOLUME 9.8 FL (7.4-10.4); MONOCYTES % (AUTO) 10 % (0-12); NEUTROPHILS # (AUTO) 8.2 X 10^3 (1.8-7.8); NEUTROPHILS % (AUTO) 80 % (42-75); PLATELET COUNT 325 10^3/uL (130-400); RED BLOOD COUNT 2.74 10^6/uL (4.35-5.85); RED CELL DISTRIBUTION WIDTH 15.9 % (10.0-14.5); WHITE BLOOD COUNT 10.2 10^3/uL (4.3-11.0)
[2017-05-20 06:39] LABS: ALANINE AMINOTRANSFERASE 19 U/L (0-55); ALKALINE PHOSPHATASE 72 U/L (40-136); BILIRUBIN,TOTAL 0.7 MG/DL (0.1-1.0); BUN/CREATININE RATIO 21; CALCIUM 7.7 MG/DL (8.5-10.1); CARBON DIOXIDE 34 MMOL/L (21-32); CHLORIDE 95 MMOL/L (98-107); CREATININE SERUM 0.57 MG/DL (0.60-1.30); GFR ESTIMATED > 60; GLUCOSE 128 MG/DL (70-105); POTASSIUM 3.9 MMOL/L (3.6-5.0); SODIUM 135 MMOL/L (135-145); TOTAL PROTEIN 4.2 GM/DL (6.4-8.2)
--- NOTE | 2017-05-20 07:33 | Diagnostic Imaging Report ---
INDICATION: Right lower lobe pneumonia. COMPARISON: 05/19/2017 FINDINGS: Single frontal radiographic view of the chest was obtained and again demonstrates small right basilar effusion and associated right basilar airspace disease. Overall appearance is stable to perhaps slightly progressed when compared to prior exam. Small left basilar effusion is also suspected. There is no pneumothorax on either side. Cardiac silhouette and pulmonary vasculature is stable. Gross deformities of the bilateral proximal humeri are noted and are stable compared to prior study. IMPRESSION: 1. Persistent small right-sided effusion with stable to slightly progressed associated pneumonia type infiltrates in the right mid and lower lung. 2. Probable small left effusion. Dictated by: Dictated on workstation # [id number]
--- NOTE | 2017-05-20 07:53 | Progress Note-Standard ---
Standard Progress Note Progress Notes/Assess & Plan Date Seen by Provider: May 20, 2017 Time Seen by Provider: 07:50 Progress/Assessment & Plan Pt. feeling better Vital Signs Date Time Temp Pulse Resp B/P (MAP) Pulse Ox O2 Delivery O2 Flow Rate FiO2 05/16/17 06:00 89 16 139/82 (101) 96 Nasal Cannula 4.00 05/16/17 05:00 83 13 144/82 (102) 96 Nasal Cannula 4.00 05/16/17 04:34 97.6 Nasal Cannula 4.00 05/16/17 04:00 89 15 139/82 (101) 96 Nasal Cannula 4.00 05/16/17 04:00 Nasal Cannula 4.00 05/16/17 03:00 94 15 143/102 (116) 96 Nasal Cannula 4.00 05/16/17 02:00 89 13 146/107 (120) 96 Nasal Cannula 4.00 05/16/17 01:00 99 05/16/17 01:00 100 21 153/89 (110) 96 Nasal Cannula 4.00 05/16/17 00:00 93 14 135/101 (112) 97 Nasal Cannula 4.00 05/16/17 00:00 Nasal Cannula 4.00 05/15/17 23:34 98.7 Nasal Cannula 4.00 05/15/17 23:00 90 15 154/88 (110) 97 Nasal Cannula 4.00 05/15/17 22:00 98 19 166/90 (115) 95 Nasal Cannula 4.00 05/15/17 21:00 94 17 157/85 (109) 95 Nasal Cannula 4.00 05/15/17 20:00 101 20 158/84 (108) 96 Nasal Cannula 4.00 05/15/17 20:00 98.3 Nasal Cannula 4.00 05/15/17 20:00 Nasal Cannula 4.00 05/15/17 19:00 94 05/15/17 19:00 96 25 141/84 (103) 96 Nasal Cannula 4.00 05/15/17 18:00 Nasal Cannula 4.00 05/15/17 18:00 96 25 141/82 (101) 94 Nasal Cannula 4.00 05/15/17 17:00 87 26 159/81 (107) 95 Nasal Cannula 4.00 05/15/17 16:10 98.4 05/15/17 16:05 Nasal Cannula 4.00 05/15/17 16:00 98 22 142/79 (100) 96 Nasal Cannula 4.00 05/15/17 15:00 98 20 138/87 (104) 94 Nasal Cannula 4.00 05/15/17 14:00 89 18 138/80 (99) 96 Nasal Cannula 4.00 05/15/17 13:12 98.1 93 155/89 05/15/17 13:00 98 23 150/78 (102) 98 Nasal Cannula 4.00 05/15/17 13:00 88 05/15/17 12:45 Nasal Cannula 4.00 05/15/17 12:03 98.2 05/15/17 12:00 101 14 124/93 (103) 98 Nasal Cannula 4.00 05/15/17 11:00 90 17 146/73 (97) 97 Nasal Cannula 4.00 05/15/17 10:20 96.4 89 20 144/75 96 Nasal Cannula 4.00 05/15/17 10:02 96.7 92 20 126/71 98 Nasal Cannula 4.00 05/15/17 10:00 90 17 126/71 (89) 99 Nasal Cannula 4.00 05/15/17 09:09 96.7 94 18 117/63 99 Nasal Cannula 4.00 05/15/17 09:00 Nasal Cannula 4.00 05/15/17 09:00 86 18 99/60 (73) 100 Nasal Cannula 4.00 05/15/17 08:36 97.1 98 18 117/62 (80) 96 Nasal Cannula 4.00 05/15/17 08:00 93 16 112/65 (81) 97 Nasal Cannula 4.00 I & O 05/16/17 07:00 Intake Total 4217 ml Output Total 1600 ml Balance 2617 ml Laboratory Tests Test 05/15/17 08:27 05/15/17 09:04 05/15/17 10:20 05/15/17 10:48 Range/Units Glucometer 34 *L 106 52 *L 83 70-110 MG/DL Test 05/15/17 11:33 05/15/17 12:07 05/15/17 12:29 05/15/17 13:40 Range/Units Glucometer 79 77 70-110 MG/DL Lab Scanned Report Transfusion Reaction Form [id number] Hemoglobin 9.2 #L 11.5-16.0 G/DL Hematocrit 27 L 35-52 % Test 05/15/17 14:31 05/15/17 15:27 05/15/17 16:25 05/15/17 17:57 Range/Units Glucometer 58 *L 63 L 60 *L 58 *L 70-110 MG/DL Test 05/15/17 18:44 05/15/17 18:52 05/15/17 20:09 05/15/17 20:59 Range/Units Hemoglobin 9.2 L 11.5-16.0 G/DL Hematocrit 27 L 35-52 % Glucometer 81 144 H 112 H 70-110 MG/DL Test 05/15/17 23:02 05/16/17 00:25 05/16/17 04:20 Range/Units Glucometer 116 H 70-110 MG/DL Hemoglobin 9.2 L 9.3 L 11.5-16.0 G/DL Hematocrit 28 L 28 L 35-52 % White Blood Count 14.7 H 4.3-11.0 10^3/uL Red Blood Count 3.17 L 4.35-5.85 10^6/uL Mean Corpuscular Volume 87 80-99 FL Mean Corpuscular Hemoglobin 29 25-34 PG Mean Corpuscular Hemoglobin Concent 34 32-36 G/DL Red Cell Distribution Width 15.0 H 10.0-14.5 % Platelet Count 295 130-400 10^3/uL Mean Platelet Volume 9.7 7.4-10.4 FL Neutrophils (%) (Auto) 92 H 42-75 % Lymphocytes (%) (Auto) 2 L 12-44 % Monocytes (%) (Auto) 5 0-12 % Eosinophils (%) (Auto) 1 0-10 % Basophils (%) (Auto) 0 0-10 % Neutrophils # (Auto) 13.6 H 1.8-7.8 X 10^3 Lymphocytes # (Auto) 0.3 L 1.0-4.0 X 10^3 Monocytes # (Auto) 0.7 0.0-1.0 X 10^3 Eosinophils # (Auto) 0.1 0.0-0.3 10^3/uL Basophils # (Auto) 0.0 0.0-0.1 10^3/uL Sodium Level 129 L 135-145 MMOL/L Potassium Level 3.9 3.6-5.0 MMOL/L Chloride Level 94 L 98-107 MMOL/L Carbon Dioxide Level 28 21-32 MMOL/L Anion Gap 7 5-14 MMOL/L Blood Urea Nitrogen 17 7-18 MG/DL Creatinine 0.70 0.60-1.30 MG/DL Estimat Glomerular Filtration Rate > 60 BUN/Creatinine Ratio 24 Glucose Level 95 70-105 MG/DL Calcium Level 7.4 L 8.5-10.1 MG/DL Phosphorus Level 2.2 L 2.3-4.7 MG/DL Magnesium Level 1.8 1.8-2.4 MG/DL Total Bilirubin 0.7 0.1-1.0 MG/DL Aspartate Amino Transf (AST/SGOT) 37 H 5-34 U/L Alanine Aminotransferase (ALT/SGPT) 32 0-55 U/L Alkaline Phosphatase 71 40-136 U/L Total Protein 4.5 L 6.4-8.2 GM/DL Albumin 2.1 L 3.2-4.5 GM/DL RLE--nvi distally. RUE decreased echymosis and swelling R IT femur fx and R surgical neck of humerus fx plan for ORIF R hip later today pt would like to go to [facility] for recovery Final Diagnosis No complaints Laboratory Tests Test 05/19/17 08:16 05/19/17 11:43 05/19/17 15:57 05/19/17 20:01 Range/Units Glucometer 557 *H 155 H 115 H 140 H 70-110 MG/DL Test 05/20/17 05:34 05/20/17 06:00 Range/Units Glucometer 136 H 70-110 MG/DL White Blood Count 10.2 4.3-11.0 10^3/uL Red Blood Count 2.74 L 4.35-5.85 10^6/uL Hemoglobin 8.0 L 11.5-16.0 G/DL Hematocrit 26 L 35-52 % Mean Corpuscular Volume 93 80-99 FL Mean Corpuscular Hemoglobin 29 25-34 PG Mean Corpuscular Hemoglobin Concent 31 L 32-36 G/DL Red Cell Distribution Width 15.9 H 10.0-14.5 % Platelet Count 325 130-400 10^3/uL Mean Platelet Volume 9.8 7.4-10.4 FL Neutrophils (%) (Auto) 80 H 42-75 % Lymphocytes (%) (Auto) 7 L 12-44 % Monocytes (%) (Auto) 10 0-12 % Eosinophils (%) (Auto) 2 0-10 % Basophils (%) (Auto) 1 0-10 % Neutrophils # (Auto) 8.2 H 1.8-7.8 X 10^3 Lymphocytes # (Auto) 0.7 L 1.0-4.0 X 10^3 Monocytes # (Auto) 1.0 0.0-1.0 X 10^3 Eosinophils # (Auto) 0.2 0.0-0.3 10^3/uL Basophils # (Auto) 0.1 0.0-0.1 10^3/uL Sodium Level 135 135-145 MMOL/L Potassium Level 3.9 3.6-5.0 MMOL/L Chloride Level 95 L 98-107 MMOL/L Carbon Dioxide Level 34 H 21-32 MMOL/L Anion Gap 6 5-14 MMOL/L Blood Urea Nitrogen 12 7-18 MG/DL Creatinine 0.57 L 0.60-1.30 MG/DL Estimat Glomerular Filtration Rate > 60 BUN/Creatinine Ratio 21 Glucose Level 128 H 70-105 MG/DL Calcium Level 7.7 L 8.5-10.1 MG/DL Total Bilirubin 0.7 0.1-1.0 MG/DL Aspartate Amino Transf (AST/SGOT) 32 5-34 U/L Alanine Aminotransferase (ALT/SGPT) 19 0-55 U/L Alkaline Phosphatase 72 40-136 U/L Total Protein 4.2 L 6.4-8.2 GM/DL Albumin 2.0 L 3.2-4.5 GM/DL Vital Signs Date Time Temp Pulse Resp B/P (MAP) Pulse Ox O2 Delivery O2 Flow Rate FiO2 05/20/17 01:49 92 High Flow N/C 3.50 05/20/17 00:00 99.1 87 20 115/60 (78) 94 High Flow N/C 4.00 05/19/17 21:00 High Flow N/C 6.00 05/19/17 20:01 113 127/77 (94) 05/19/17 19:44 95 High Flow N/C 3.50 05/19/17 15:46 92 High Flow N/C 3.50 05/19/17 15:30 97.6 97 18 122/66 (84) 92 High Flow N/C 4.00 05/19/17 12:00 98.9 110 20 111/58 (75) 93 High Flow N/C 4.00 05/19/17 10:21 91 High Flow N/C 3.50 05/19/17 08:00 High Flow N/C 6.00 05/19/17 08:00 99.2 113 22 109/63 (78) 94 High Flow N/C 4.00 I & O 05/20/17 07:00 Intake Total 2650 ml Output Total 1950 ml Balance 700 ml RUE--in sling. NVI distally RLE dressing intact . No calf tenderness. s/p ORIF R hip R prox humerus fx mobilize as able would consider DC of [facility] when ok with PCP will require short term NH placement CARMEN CORDERO MD May 20, 2017 07:52
[2017-05-20 08:00] VITALS: BP 135/74
--- NOTE | 2017-05-20 08:18 | Progress Note (SOAP) ---
Subjective Time Seen by Provider: 08:15 Subjective/Events-last exam Patient doing better today. Right hip fracture. Right shoulder fracture. Lung cancer. Pneumonia. COPD. Patient feeling rough. Patient will have to go to a prison Objective Exam Vital Signs Date Time Temp Pulse Resp B/P (MAP) Pulse Ox O2 Delivery O2 Flow Rate FiO2 05/20/17 01:49 92 High Flow N/C 3.50 05/20/17 00:00 99.1 87 20 115/60 (78) 94 High Flow N/C 4.00 05/19/17 21:00 High Flow N/C 6.00 05/19/17 20:01 113 127/77 (94) 05/19/17 19:44 95 High Flow N/C 3.50 05/19/17 15:46 92 High Flow N/C 3.50 05/19/17 15:30 97.6 97 18 122/66 (84) 92 High Flow N/C 4.00 05/19/17 12:00 98.9 110 20 111/58 (75) 93 High Flow N/C 4.00 05/19/17 10:21 91 High Flow N/C 3.50 I & O 05/20/17 07:00 Intake Total 2650 ml Output Total 1950 ml Balance 700 ml Capillary Refill : Less Than 3 SecondsLess Than 3 Seconds General Appearance: No Apparent Distress, Thin HEENT: Normal ENT Inspection Neck: Normal Inspection Respiratory: No Accessory Muscle Use, No Respiratory Distress, Decreased Breath Sounds Cardiovascular: Regular Rate, Rhythm, No Murmur Gastrointestinal: non tender, soft Results Lab Laboratory Tests 05/19/17 11:43: Glucometer 155H 05/19/17 15:57: Glucometer 115H 05/19/17 20:01: Glucometer 140H 05/20/17 05:34: Glucometer 136H 05/20/17 06:00: White Blood Count 10.2, Red Blood Count 2.74L, Hemoglobin 8.0L, Hematocrit 26L, Mean Corpuscular Volume 93, Mean Corpuscular Hemoglobin 29, Mean Corpuscular Hemoglobin Concent 31L, Red Cell Distribution Width 15.9H, Platelet Count 325, Mean Platelet Volume 9.8, Neutrophils (%) (Auto) 80H, Lymphocytes (%) (Auto) 7L , Monocytes (%) (Auto) 10, Eosinophils (%) (Auto) 2, Basophils (%) (Auto) 1, Neutrophils # (Auto) 8.2H, Lymphocytes # (Auto) 0.7L, Monocytes # (Auto) 1.0, Eosinophils # (Auto) 0.2, Basophils # (Auto) 0.1, Sodium Level 135, Potassium Level 3.9, Chloride Level 95L, Carbon Dioxide Level 34H, Anion Gap 6, Blood Urea Nitrogen 12, Creatinine 0.57L, Estimat Glomerular Filtration Rate > 60, BUN /Creatinine Ratio 21, Glucose Level 128H, Calcium Level 7.7L, Total Bilirubin 0.7, Aspartate Amino Transf (AST/SGOT) 32, Alanine Aminotransferase (ALT/SGPT) 19, Alkaline Phosphatase 72, Total Protein 4.2L, Albumin 2.0L Microbiology 05/14/17 Blood Culture - Preliminary, Resulted No growth 05/14/17 MRSA Screen - Final, Complete MRSA not isolated Assessment/Plan Assessment/Plan Assess & Plan/Chief Complaint Sepsis with pneumonia. fall Acute blood loss. Hypotension resolved. COPD with acute exacerbation. Squamous cell lung cancer. Patient to have hip surgery today. Patient has hip fracture and shoulder fracture. . 05/17/17. 4. Sepsis with pneumonia. Acute blood loss. Hypertension. COPD. Swelling of cell lung cancer. Hip fracture had surgery yesterday. Right shoulder fracture. Hemoglobin and hematocrit stable. Chest x-ray little worse. . 05/20/17. Patient improving. Sepsis with pneumonia. Acute blood loss. Hypertension. COPD. Hip fracture. Shoulder fracture right. Lung cancer. Patient stable and improving Clinical Quality Measures DVT/VTE Risk/Contraindication: Risk Factor Score Per Nursin RFS Level Per Nursing on Admit: 4+=Very High Contraindications-Pharm: Other *list below* WEST MCCAULEY DO May 20, 2017 08:18
[2017-05-20] MEDS: meTOprolol TARTRATE 50 MG (LOPRESSOR) TAB PO SCH ×2 (08:26→20:08)
[2017-05-20] MEDS: APIXABAN 2.5 MG (ELIQUIS) TABLET PO SCH ×2 (08:26→20:08)
[2017-05-20] MEDS: DICLOFENAC 1% GEL 100 GM (VOLTAREN) TUBE TOP SCH ×4 (08:26→21:50)
[2017-05-20 08:45] LABS: BASOPHILS # (AUTO) 0.1 10^3/uL (0.0-0.1); BASOPHILS % (AUTO) 1 % (0-10); EOSINOPHILS # (AUTO) 0.2 10^3/uL (0.0-0.3); EOSINOPHILS % (AUTO) 2 % (0-10); HEMATOCRIT 26 % (35-52); HEMOGLOBIN 8.1 G/DL (11.5-16.0); LYMPHOCYTES # (AUTO) 0.8 X 10^3 (1.0-4.0); LYMPHOCYTES % (AUTO) 7 % (12-44); MEAN CORPUSCULAR HEMOGLOBIN 29 PG (25-34); MEAN CORPUSCULAR HGB CONC 31 G/DL (32-36); MEAN CORPUSCULAR VOLUME 94 FL (80-99); MEAN PLATELET VOLUME 9.8 FL (7.4-10.4); MONOCYTES # (AUTO) 0.9 X 10^3 (0.0-1.0); MONOCYTES % (AUTO) 9 % (0-12); NEUTROPHILS # (AUTO) 8.5 X 10^3 (1.8-7.8); NEUTROPHILS % (AUTO) 81 % (42-75); PLATELET COUNT 331 10^3/uL (130-400); RED BLOOD COUNT 2.79 10^6/uL (4.35-5.85); RED CELL DISTRIBUTION WIDTH 15.8 % (10.0-14.5); WHITE BLOOD COUNT 10.6 10^3/uL (4.3-11.0)
[2017-05-20 09:11] LABS: ANISOCYTOSIS MODERATE; BAND NEUTROPHILS 5 %; BASOPHILS % (MANUAL) 1 %; ELLIPT/OVALOCYTES MODERATE; EOSINOPHILS % (MANUAL) 6 %; HYPOCHROMASIA MODERATE; LYMPHOCYTES % (MANUAL) 3 %; METAMYELOCYTES % 4 %; MONOCYTES % (MANUAL) 4 %; NEUTROPHILS % (MANUAL) 77 %; POLYCHROMASIA MODERATE
--- NOTE | 2017-05-20 09:19 | Physical Therapy Daily Note ---
PT Daily Note-Current Subjective Patient is having increase SOA with minimal activity. Pain Numeric Pain Scale: 5-Moderate Pain Location: Right Location Body Site: Hip Pain Description: Acute Mental Status Patient Orientation: Normal For Age Attachments: Oxygen, Lai Catheter, IV Transfers Functional [place] Measure 0=Not Assessed/NA 4=Minimal Assistance 1=Total Assistance 5=Supervision or Setup 2=Maximal Assistance 6=Modified [place] 3=Moderate Assistance 7=Complete IndependenceIRFPAI Quality Coding Scale 6 Independent with activity with or without an assistive device 5 Patient requires set up or clean up by helper. Patient completes activity by themselves 4 Supervision or touching assist (CGA). [place] provide cues , steadying assist 3 The helper provides less than half the effort to complete the activity 2 The helper provides more than half the effort to complete the activity 1 Dependent. The helper does all the effort to complete an activity 7 Patient refused to complete or attempt activity 9 The patient did not perform the activity before the current illness or injury 88 Not attempted due to Medical conditions or safety concerns Transfers (B, C, W/C) (FIM): 2 Scootin Rollin Supine to/from Sit: 2 Sit to/from Stand: 2 Bed to/from Chair: 2 max assist with SPT WBAT left LE and PWB right LE with NWB right UE which is in the sling after PT donns it appropriately Weight Bearing Right Lower Extremity: Right Partial Weight Bearing (50%) Left Lower Extremity: Left Full Weight Bearing Exercises Seated Therapy Exercises: Ankle pumps, Long arc quads Seated Reps: 15 (AAROM right LE due to pain) Assessment Patient educated on NWB right UE secondary to patient attempting to utilize it during bed mobility and sitting EOB. PT applies sling appropriately to avoid further injury. PT Short Term Goals Short Term Goals Transfers (B,C,W/C) (FIM): 3 PT Penitentiary Goals Business Performance Analyst Goals PT Penitentiary Goals Time Frame: May 24, 2017 Transfers (B,C,W/C) (FIM): 3 PT Plan Treatment/Plan Treatment Plan: Continue Plan of Care Treatment Plan: Bed Mobility, Education, Functional Activity Alexi, Functional Strength, Gait, Safety, Therapeutic Exercise, Transfers Treatment Duration: May 24, 2017 Frequency: 11 times per week Estimated Hrs Per Day: .5 hour per day Patient and/or Family Agrees t: Yes Time/GCodes Time In: 825 Time Out: 835 Total Billed Treatment Time: 10 Total Billed Treatment 1 visit FA 10 min ANKITA EASTON PT May 20, 2017 09:19
--- NOTE | 2017-05-20 10:08 | Cardiology Progress Note ---
Cardiology SOAP Progress Note Subjective: No cardiac symptoms. Objective: I&O/Vital Signs Vital Sign - Last 12Hours 05/20/17 05/20/17 05/20/17 05/20/17 00:00 01:49 08:00 08:41 Temp 99.1 98.8 Pulse 87 106 Resp 20 20 B/P (MAP) 115/60 (78) 135/74 (94) Pulse Ox 94 92 97 92 O2 Delivery High Flow N/C High Flow N/C High Flow N/C High Flow N/C O2 Flow Rate 4.00 3.50 4.00 3.50 05/20/17 09:00 O2 Delivery High Flow N/C O2 Flow Rate 3.50 Intake and Output 05/20/17 00:00 Intake Total 1350 ml Output Total 1050 ml Balance 300 ml Weight (Pounds): 121 Weight (Ounces): 4.0 Weight (Calculated Kilograms): [id number] Constitutional: AAO x 3 Respiratory: lungs clear to percussion, lungs clear to auscultation Cardiovascular: regular rate-rhythm, S1 and S2 Gastrointestional: No tender, No soft, No round, No distended, No pulsatile mass, No organomegaly, No guarding, No rebound, No tenderness, No hernia, No mass, No audible bowel sounds, No abnormal bowel sounds, No abdominal bruits, No spleenomegaly, No other Extremities: tenderness Neurologic/Psychiatric: No finance associate II-XII nml as tested, No no motor/sensory deficits, alert, normal mood/affect, oriented x 3, No abnormal cerebellar tests , No abnormal finance associate II-XII, No abnormal gait, No aphasia, No EOM palsy, No facial droop, No motor weakness, No sensory deficit, No depressed affect, No disoriented x 3, No other, No grossly intact, No power is 5/5 both on sides Skin: No normal color, No warm/dry, No cyanosis, No cool, No diaphoresis, No damp, ecchymosis (significant ecchymosis from the elbow to about shoulder on the right. Multiple other small bruises throughout the body.), No jaundice, No mottled, No pallor, No rash, No tattoos/piercings, No ulcerations, No rash on exposed areas, No ulcerations on exposed areas, No other Results/Procedures: Labs Laboratory Tests 05/19/17 11:43: Glucometer 155H 05/19/17 15:57: Glucometer 115H 05/19/17 20:01: Glucometer 140H 05/20/17 05:34: Glucometer 136H 05/20/17 06:00: White Blood Count 10.2, Red Blood Count 2.74L, Hemoglobin 8.0L, Hematocrit 26L, Mean Corpuscular Volume 93, Mean Corpuscular Hemoglobin 29, Mean Corpuscular Hemoglobin Concent 31L, Red Cell Distribution Width 15.9H, Platelet Count 325, Mean Platelet Volume 9.8, Neutrophils (%) (Auto) 80H, Lymphocytes (%) (Auto) 7L , Monocytes (%) (Auto) 10, Eosinophils (%) (Auto) 2, Basophils (%) (Auto) 1, Neutrophils # (Auto) 8.2H, Lymphocytes # (Auto) 0.7L, Monocytes # (Auto) 1.0, Eosinophils # (Auto) 0.2, Basophils # (Auto) 0.1, Sodium Level 135, Potassium Level 3.9, Chloride Level 95L, Carbon Dioxide Level 34H, Anion Gap 6, Blood Urea Nitrogen 12, Creatinine 0.57L, Estimat Glomerular Filtration Rate > 60, BUN /Creatinine Ratio 21, Glucose Level 128H, Calcium Level 7.7L, Total Bilirubin 0.7, Aspartate Amino Transf (AST/SGOT) 32, Alanine Aminotransferase (ALT/SGPT) 19, Alkaline Phosphatase 72, Total Protein 4.2L, Albumin 2.0L 05/20/17 08:30: White Blood Count 10.6, Red Blood Count 2.79L, Hemoglobin 8.1L, Hematocrit 26L, Mean Corpuscular Volume 94, Mean Corpuscular Hemoglobin 29, Mean Corpuscular Hemoglobin Concent 31L, Red Cell Distribution Width 15.8H, Platelet Count 331, Mean Platelet Volume 9.8, Neutrophils (%) (Auto) 81H, Lymphocytes (%) (Auto) 7L , Monocytes (%) (Auto) 9, Eosinophils (%) (Auto) 2, Basophils (%) (Auto) 1, Neutrophils # (Auto) 8.5H, Lymphocytes # (Auto) 0.8L, Monocytes # (Auto) 0.9, Eosinophils # (Auto) 0.2, Basophils # (Auto) 0.1, Neutrophils % (Manual) 77, Lymphocytes % (Manual) 3, Monocytes % (Manual) 4, Eosinophils % (Manual) 6, Basophils % (Manual) 1, Metamyelocytes % 4, Band Neutrophils 5, Polychromasia MODERATE, Hypochromasia MODERATE, Anisocytosis MODERATE, Macrocytosis MODERATE, Elliptocytes MODERATE Microbiology 05/14/17 Blood Culture - Preliminary, Resulted No growth 05/14/17 MRSA Screen - Final, Complete MRSA not isolated A/P: Assessment/Dx: Hip and right arm fracture. Right lower lobe pneumonia/sepsis- improved CAD/CABG, Paroxysmal atrial fibrillation, Diastolic dysfunction, Tricuspid regurgitation Plan: Outpatient of Dr. Pal. Hip fracture: post hip surgery. Slow improvement. Might require inpatient rehabilitation. Pneumonia/sepsis: Deferred to Dr. Morris and Dr. Dubois. Improved. CAD. No active complaints. S/p CABG Feb [address] Guzman in [place], [place]. She had LEMUS to LAD, SVG to PDA, and sequential SVG to diagonal and OM. Last cardiac cath was on 07/12/15 and it showed multivessel CAD with patent SVG to distal RCA, patent LEMUS to distal LAD, and a sequential SVG with 50-60% mid- graft stenosis that was patent to first diag but occluded to OM. She underwent successful balloon angioplasty of the OM to which the graft was occluded. LVEF 60% on cath 07/12/15 with mild elevation of LVEDP Echocardiogram from January 03, 2015 showed LVEF 60%. Last echo of 04/19/16 showed LVEF 55-60%, mod diastolic dysfunction of LV, severe pulm htn with RVSP approx 72 mmHg Pulm htn, managed by Dr Dubois PAD. 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 Abdominal aortic aneurysm screening of February 2016 was negative for abdominal aortic aneurysm S/p radiation and chemo for right lung cancer in mid 2016, managed by Dr Contreras and Sherly H/o intermittent pneumonia Tobacco use quit in early 2012 Hypertension COPD with associated pulm hypertension Hyperlipidemia, controlled Hypothyroidism being treated with thyroid replacement therapy Carotid u/s from July 2014 showed minimal bilat carotid arterial disease without evidence of hemodynamic significance Mild hyperglycemia, suggestive of borderline DM II, on blood work of 07/12/15 Thank you for your consultation. Please call me if you have any questions. Paddy Funk MD, FACP, FACC, FSCAI, FHRS, CCDS Interventional Cardiology Cardiac Electrophysiology Vascular Medicine and Endovascular Interventions Melanie FUNK MD May 20, 2017 10:08
[2017-05-20] MEDS: ASPIRIN E.C. 81 MG (ECOTRIN) TAB PO SCH (12:17)
[2017-05-20] MEDS: FUROSEMIDE 20 MG (LASIX) TAB PO SCH (12:17)
--- NOTE | 2017-05-20 15:10 | Physical Therapy Daily Note ---
PT Daily Note-Current Subjective Patient is in bed and agrees to PT. Patient reports she is going to the CT this week. Pain Numeric Pain Scale: 5-Moderate Pain Location: Right Location Body Site: Hip Pain Description: Acute Mental Status Patient Orientation: Normal For Age Attachments: Oxygen, Lai Catheter Transfers Functional [place] Measure 0=Not Assessed/NA 4=Minimal Assistance 1=Total Assistance 5=Supervision or Setup 2=Maximal Assistance 6=Modified [place] 3=Moderate Assistance 7=Complete IndependenceIRFPAI Quality Coding Scale 6 Independent with activity with or without an assistive device 5 Patient requires set up or clean up by helper. Patient completes activity by themselves 4 Supervision or touching assist (CGA). [place] provide cues , steadying assist 3 The helper provides less than half the effort to complete the activity 2 The helper provides more than half the effort to complete the activity 1 Dependent. The helper does all the effort to complete an activity 7 Patient refused to complete or attempt activity 9 The patient did not perform the activity before the current illness or injury 88 Not attempted due to Medical conditions or safety concerns Transfers (B, C, W/C) (FIM): 2 Scootin Rollin Supine to/from Sit: 2 Sit to/from Stand: 2 Bed to/from Chair: 2 Weight Bearing Right Lower Extremity: Right Partial Weight Bearing (50%) Left Lower Extremity: Left Full Weight Bearing Exercises Seated Therapy Exercises: Ankle pumps, Long arc quads Seated Reps: 15 Assessment Patient requires time to complete all functional tasks. [facility]. Call light in hand. PT Short Term Goals Short Term Goals Transfers (B,C,W/C) (FIM): 3 PT Ticket Broker Goals Skilled Nursing Goals PT Skilled Nursing Goals Time Frame: May 24, 2017 Transfers (B,C,W/C) (FIM): 3 PT Plan Treatment/Plan Treatment Plan: Continue Plan of Care Treatment Plan: Bed Mobility, Education, Functional Activity Alexi, Functional Strength, Gait, Safety, Therapeutic Exercise, Transfers Treatment Duration: May 24, 2017 Frequency: 11 times per week Estimated Hrs Per Day: .5 hour per day Patient and/or Family Agrees t: Yes Time/GCodes Time In: 1430 Time Out: 1443 Total Billed Treatment Time: 13 Total Billed Treatment 1 visit FA 13 min ANKITA EASTON PT May 20, 2017 15:10
--- NOTE | 2017-05-20 15:26 | Occupational Ther Daily Note ---
OT Current Status-Daily Note Subjective Pt. states, "I hurt all over." Does not state a pain level. Nursing aware. Appearance Pt. in bed. Right UE is propped on pillow. Mental Status/Objective Functional [place] Measure 0=Not Assessed/NA 4=Minimal Assistance 1=Total Assistance 5=Supervision or Setup 2=Maximal Assistance 6=Modified [place] 3=Moderate Assistance 7=Complete [place] Other Treatment OT carefully removes arm sling and wrapping on right UE. Wrapping is to keep arm from "weeping." Arm very swollen and red/purple. Noted two areas in which fluid is seeping out. OT applied cool cloth to wipe drainage, and pt. states that it feels good. OT provided gentle PROM to elbow, wrist and fingers. Pt. also is able to complete AROM to elbow, wrist and fingers. OT obtains and applies isotoner compression glove to right hand to decrease swelling. Applied extra pillow for elevation of hand. Pt. is encouraged to continue doing her own AROM exercises while therapy not in room. Sling put to side until pt. gets up again. All needs met in room. Education OT Patient Education: Correct positioning, Exercise program, Progress toward Goal/Update tx plan, Purpose of tx/functional activities, Reviewed precautions, Rehab process, Transfer techniques Teaching Recipient: Patient Teaching Methods: Demonstration, Discussion Response to Teaching: Verbalize Understanding, Return Demonstration OT Short Term Goals Short Term Goals Time Frame: Jun 01, 2017 Eating(FIM): 5 Grooming(FIM): 5 Bathing(FIM): 3 Upper Body Dressing(FIM): 3 Toileting(FIM): 3 Transfers (B,C,W/C) (FIM): 3 Toilet/Commode Transfer(FIM): 3 Additional Short Term Goals: 1-Demonstrate ADL Tasks, 2-Verbalize Understanding , 3-ImproveStrength/Alexi 1=Demonstrate adherence to instructed precautions during ADL tasks. 2=Patient will verbalize/demonstrate understanding of assistive devices/ modifications for ADL. 3=Patient will improve strength/tolerance for activity to enable patient to perform ADL's. OT Biochemistry Teacher Goals Biochemistry Teacher Goals Time Frame: Jun 15, 2017 Eating (FIM): 6 Grooming(FIM): 5 Bathing(FIM): 5 Upper Body Dressing(FIM): 5 Lower Body Dressing(FIM): 5 Toileting(FIM): 6 Transfers (B,C,W/C) (FIM): 6 Toilet/Commode Transfer(FIM): 6 Shower Transfer(FIM): 4 Additional Goals: 1-Demonstrate ADL Tasks, 2-Verbalize Understanding, 3- ImproveStrength/Alexi 1=Demonstrate adherence to instructed precautions during ADL tasks. 2=Patient will verbalize/demonstrate understanding of assistive devices/ modifications for ADL. 3=Patient will improve strength/tolerance for activity to enable patient to perform ADL's. OT Education/Plan Problem List/Assessment Assessment: Decreased Activ Tolerance, Decreased UE Strength, Dependent Transfers, Impaired Bed Mobility, Impaired Coordination, Impaired Funct Balance , Impaired I ADL's, Impaired Self-Care Skills, Restricted Funct UE ROM Discharge Recommendations Plan/Recommendations: Continue POC Therapy D/C Recommendations: Acute Rehab Comment to be determined Treatment Plan/Plan of Care Treatment,Training & Education: Yes Patient would benefit from OT for education, treatment and training to promote independence in ADL's, mobility, safety and/or upper extremity function for ADL' s. Plan of Care: ADL Retraining, Functional Mobility, UE Funct Exercise/Act Treatment Duration: Jun 15, 2017 Frequency: 5 times per week Estimated Hrs Per Day: .25 hour per day Agreement: Yes Rehab Potential: Fair Time/GCodes Start Time: 13:20 Stop Time: 13:50 Total Time Billed (hr/min): 30 Billed Treatment Time 1, EX x 2 ROMY MOCTEZUMA OT May 20, 2017 15:26
[2017-05-20 15:40] VITALS: BP 127/65
[2017-05-20] MEDS: ONDANSETRON 4 MG/2 ML (SDV) Z0FRAN IVP PRN (16:06)
[2017-05-20] MEDS: LEVOTHYROXINE 50 MCG (LEVOTHROID) TAB PO SCH (20:08)
[2017-05-20] MEDS: ATORVASTATIN 40 MG (LIPITOR) TABLET PO SCH (20:08)
[2017-05-21 00:03] VITALS: BP 112/64
[2017-05-21] MEDS: RT-ALBUTEROL/IPRATROPIUM 3 ML (DUONEB) VIAL INH SCH ×4 (03:00→21:17)
[2017-05-21 04:00] VITALS: BP 114/75
[2017-05-21] MEDS: inSUlin (REGULAR) HUMAN 1 UNIT/0.01 ML (CHARGE PER UNIT) SC SCH ×4 (05:20→20:24)
[2017-05-21 05:27] LABS: BASOPHILS # (AUTO) 0.1 10^3/uL (0.0-0.1); BASOPHILS % (AUTO) 1 % (0-10); EOSINOPHILS # (AUTO) 0.2 10^3/uL (0.0-0.3); EOSINOPHILS % (AUTO) 3 % (0-10); HEMATOCRIT 26 % (35-52); HEMOGLOBIN 7.8 G/DL (11.5-16.0); LYMPHOCYTES # (AUTO) 0.7 X 10^3 (1.0-4.0); LYMPHOCYTES % (AUTO) 7 % (12-44); MEAN CORPUSCULAR HEMOGLOBIN 29 PG (25-34); MEAN CORPUSCULAR HGB CONC 30 G/DL (32-36); MEAN CORPUSCULAR VOLUME 95 FL (80-99); MEAN PLATELET VOLUME 9.6 FL (7.4-10.4); MONOCYTES % (AUTO) 10 % (0-12); NEUTROPHILS # (AUTO) 7.5 X 10^3 (1.8-7.8); NEUTROPHILS % (AUTO) 79 % (42-75); PLATELET COUNT 364 10^3/uL (130-400); RED BLOOD COUNT 2.73 10^6/uL (4.35-5.85); RED CELL DISTRIBUTION WIDTH 16.3 % (10.0-14.5); WHITE BLOOD COUNT 9.5 10^3/uL (4.3-11.0)
[2017-05-21] MEDS: metFORMIN 500 MG (GLUCOPHAGE) TAB PO SCH ×2 (05:29→17:42)
[2017-05-21] MEDS: oxyCODONE/APAP 5/325MG (PERCOCET 5) TABLET PO PRN ×4 (05:29→22:13)
[2017-05-21] MEDS: PANTOPRAZOLE 40 MG (PROTONIX) TAB PO SCH (05:29)
[2017-05-21 06:03] LABS: ALANINE AMINOTRANSFERASE 16 U/L (0-55); ALBUMIN 1.9 GM/DL (3.2-4.5); ALKALINE PHOSPHATASE 68 U/L (40-136); BILIRUBIN,TOTAL 0.7 MG/DL (0.1-1.0); BUN/CREATININE RATIO 20; CALCIUM 8.2 MG/DL (8.5-10.1); CARBON DIOXIDE 34 MMOL/L (21-32); CHLORIDE 95 MMOL/L (98-107); CREATININE SERUM 0.61 MG/DL (0.60-1.30); GFR ESTIMATED > 60; GLUCOSE 149 MG/DL (70-105); SODIUM 138 MMOL/L (135-145); TOTAL PROTEIN 4.5 GM/DL (6.4-8.2)
--- NOTE | 2017-05-21 06:41 | Pulmonary Progress Note ---
Subjective Time Seen by Provider: 08:33 Subjective/Events-last exam No complications noted. PT still complains of SOB> Exam Exam Vital Signs Date Time Temp Pulse Resp B/P (MAP) Pulse Ox O2 Delivery O2 Flow Rate FiO2 05/21/17 04:00 96.0 89 20 114/75 (88) 91 High Flow N/C 4.00 05/21/17 00:03 98.0 99 17 112/64 (80) 91 High Flow N/C 4.00 05/20/17 20:21 96 High Flow N/C 3.50 05/20/17 20:00 High Flow N/C 3.50 05/20/17 15:40 98.8 96 16 127/65 (85) 98 High Flow N/C 4.00 05/20/17 14:34 97 High Flow N/C 3.50 05/20/17 09:00 High Flow N/C 3.50 05/20/17 08:41 92 High Flow N/C 3.50 05/20/17 08:00 98.8 106 20 135/74 (94) 97 High Flow N/C 4.00 I & O 05/21/17 07:00 Intake Total 1490 ml Output Total 2000 ml Balance -510 ml General Appearance: No Apparent Distress, Thin HEENT: Normal ENT Inspection Neck: Normal Inspection Respiratory: No Accessory Muscle Use, No Respiratory Distress, Decreased Breath Sounds Cardiovascular: Regular Rate, Rhythm, No Murmur Capillary Refill: Less Than 3 Seconds Gastrointestinal: non tender, soft Extremity: Other (Few's purpura right upper extremity with some decrease in swelling. 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
[2017-05-21] MEDS ORDERED: FUROSEMIDE 40 MG/4 ML INJ (LASIX) IVP ONE (06:45)
[2017-05-21] MEDS ORDERED: KCL 20 MEQ TAB (K-DUR) PO ONE (06:45)
[2017-05-21 08:00] VITALS: BP 106/61
--- NOTE | 2017-05-21 08:15 | Progress Note (SOAP) ---
Subjective Time Seen by Provider: 08:05 Subjective/Events-last exam Hip fracture. Right shoulder fracture. Lung cancer. Sepsis. Anemia. To get social media project manager involved for placement. Wound care to check the right arm. Patient to work harder with physical therapy Objective Exam Vital Signs Date Time Temp Pulse Resp B/P (MAP) Pulse Ox O2 Delivery O2 Flow Rate FiO2 05/21/17 06:56 95 High Flow N/C 3.50 05/21/17 04:00 96.0 89 20 114/75 (88) 91 High Flow N/C 4.00 05/21/17 00:03 98.0 99 17 112/64 (80) 91 High Flow N/C 4.00 05/20/17 20:21 96 High Flow N/C 3.50 05/20/17 20:00 High Flow N/C 3.50 05/20/17 15:40 98.8 96 16 127/65 (85) 98 High Flow N/C 4.00 05/20/17 14:34 97 High Flow N/C 3.50 05/20/17 09:00 High Flow N/C 3.50 05/20/17 08:41 92 High Flow N/C 3.50 I & O 05/21/17 07:00 Intake Total 1490 ml Output Total 2000 ml Balance -510 ml Capillary Refill : Less Than 3 SecondsLess Than 3 Seconds General Appearance: No Apparent Distress, Thin HEENT: Normal ENT Inspection Neck: Full Range of Motion, Normal Inspection Respiratory: No Accessory Muscle Use, No Respiratory Distress, Decreased Breath Sounds Cardiovascular: Regular Rate, Rhythm, No Murmur Gastrointestinal: non tender, soft Results Lab Laboratory Tests 05/20/17 08:30 05/21/17 05:20 Laboratory Tests 05/20/17 08:30: White Blood Count 10.6, Red Blood Count 2.79L, Hemoglobin 8.1L, Hematocrit 26L, Mean Corpuscular Volume 94, Mean Corpuscular Hemoglobin 29, Mean Corpuscular Hemoglobin Concent 31L, Red Cell Distribution Width 15.8H, Platelet Count 331, Mean Platelet Volume 9.8, Neutrophils (%) (Auto) 81H, Lymphocytes (%) (Auto) 7L , Monocytes (%) (Auto) 9, Eosinophils (%) (Auto) 2, Basophils (%) (Auto) 1, Neutrophils # (Auto) 8.5H, Lymphocytes # (Auto) 0.8L, Monocytes # (Auto) 0.9, Eosinophils # (Auto) 0.2, Basophils # (Auto) 0.1, Neutrophils % (Manual) 77, Lymphocytes % (Manual) 3, Monocytes % (Manual) 4, Eosinophils % (Manual) 6, Basophils % (Manual) 1, Metamyelocytes % 4, Band Neutrophils 5, Polychromasia MODERATE, Hypochromasia MODERATE, Anisocytosis MODERATE, Macrocytosis MODERATE, Elliptocytes MODERATE 05/20/17 11:54: Glucometer 192H 05/20/17 15:43: Glucometer 224H 05/20/17 21:06: Glucometer 175H 05/21/17 05:18: Glucometer 145H 05/21/17 05:20: White Blood Count 9.5, Red Blood Count 2.73L, Hemoglobin 7.8L, Hematocrit 26L, Mean Corpuscular Volume 95, Mean Corpuscular Hemoglobin 29, Mean Corpuscular Hemoglobin Concent 30L, Red Cell Distribution Width 16.3H, Platelet Count 364, Mean Platelet Volume 9.6, Neutrophils (%) (Auto) 79H, Lymphocytes (%) (Auto) 7L , Monocytes (%) (Auto) 10, Eosinophils (%) (Auto) 3, Basophils (%) (Auto) 1, Neutrophils # (Auto) 7.5, Lymphocytes # (Auto) 0.7L, Monocytes # (Auto) 1.0, Eosinophils # (Auto) 0.2, Basophils # (Auto) 0.1, Sodium Level 138, Potassium Level 4.0, Chloride Level 95L, Carbon Dioxide Level 34H, Anion Gap 9, Blood Urea Nitrogen 12, Creatinine 0.61, Estimat Glomerular Filtration Rate > 60, BUN/ Creatinine Ratio 20, Glucose Level 149H, Calcium Level 8.2L, Total Bilirubin 0.7 , Aspartate Amino Transf (AST/SGOT) 16, Alanine Aminotransferase (ALT/SGPT) 16, Alkaline Phosphatase 68, Total Protein 4.5L, Albumin 1.9L Microbiology 05/14/17 Blood Culture - Final, Complete No growth 05/14/17 MRSA Screen - Final, Complete MRSA not isolated Assessment/Plan Assessment/Plan Assess & Plan/Chief Complaint Sepsis with pneumonia. fall Acute blood loss. Hypotension resolved. COPD with acute exacerbation. Squamous cell lung cancer. Patient to have hip surgery today. Patient has hip fracture and shoulder fracture. . 05/17/17. 4. Sepsis with pneumonia. Acute blood loss. Hypertension. COPD. Swelling of cell lung cancer. Hip fracture had surgery yesterday. Right shoulder fracture. Hemoglobin and hematocrit stable. Chest x-ray little worse. . 05/20/17. Patient improving. Sepsis with pneumonia. Acute blood loss. Hypertension. COPD. Hip fracture. Shoulder fracture right. Lung cancer. Patient stable and improving. . 05/21/17. Sepsis with pneumonia. Acute blood loss. Hypertension history. COPD. Lung cancer. Patient to see social media project manager for placement Clinical Quality Measures DVT/VTE Risk/Contraindication: Risk Factor Score Per Nursin RFS Level Per Nursing on Admit: 4+=Very High Contraindications-Pharm: Other *list below* WEST MCCAULEY DO May 21, 2017 08:15
[2017-05-21] MEDS: meTOprolol TARTRATE 50 MG (LOPRESSOR) TAB PO SCH ×2 (08:47→20:19)
[2017-05-21] MEDS: DICLOFENAC 1% GEL 100 GM (VOLTAREN) TUBE TOP SCH ×4 (08:47→20:19)
[2017-05-21] MEDS: APIXABAN 2.5 MG (ELIQUIS) TABLET PO SCH ×2 (08:47→20:18)
--- NOTE | 2017-05-21 09:14 | Diagnostic Imaging Report ---
INDICATION: Pneumonia. COMPARISON: 05/20/2017 FINDINGS: Single frontal radiographic view of the chest was obtained and demonstrates stable mild to moderate right basilar effusion with associated moderate airspace disease in the right mid and lower lung field. Small left effusion is suspected. Overall, aeration is stable. There is no pneumothorax. Cardiac silhouette and pulmonary vasculature stable as well. Sternotomy wires and right internal jugular central venous catheter again noted. Fracture deformities of the bilateral proximal humeri also again noted. IMPRESSION: 1. Stable exam of the chest showing right-sided effusion with associated moderate infiltrates in the right mid and lower lung field. 2. Probable small left effusion. Dictated by: Dictated on workstation # [id number]
[2017-05-21] MEDS: NYSTATIN ORAL SUSP 5 ML UDC PO SCH ×3 (11:28→23:55)
--- NOTE | 2017-05-21 11:35 | Physical Therapy Daily Note ---
PT Daily Note-Current Subjective Patient is in recliner and reluctantly agrees to PT. c/o 8/10 right hip pain. Pain Numeric Pain Scale: 8 Location: Right Location Body Site: Hip Pain Description: Acute Mental Status Patient Orientation: Normal For Age Attachments: Oxygen, Lai Catheter Transfers Functional [place] Measure 0=Not Assessed/NA 4=Minimal Assistance 1=Total Assistance 5=Supervision or Setup 2=Maximal Assistance 6=Modified [place] 3=Moderate Assistance 7=Complete IndependenceIRFPAI Quality Coding Scale 6 Independent with activity with or without an assistive device 5 Patient requires set up or clean up by helper. Patient completes activity by themselves 4 Supervision or touching assist (CGA). [place] provide cues , steadying assist 3 The helper provides less than half the effort to complete the activity 2 The helper provides more than half the effort to complete the activity 1 Dependent. The helper does all the effort to complete an activity 7 Patient refused to complete or attempt activity 9 The patient did not perform the activity before the current illness or injury 88 Not attempted due to Medical conditions or safety concerns Transfers (B, C, W/C) (FIM): 2 Scootin Sit to/from Stand: 2 sit to stand transfers, max assist x 2 sets with PWB right LE and WBAT left LE Weight Bearing Right Lower Extremity: Right Partial Weight Bearing (50%) Left Lower Extremity: Left Full Weight Bearing Exercises Supine Ex: Ankle pumps, Quad Set Supine Reps: 10 (2 sets in recliner) Seated Therapy Exercises: Ankle pumps, Long arc quads Seated Reps: 15 (3 sets ) Assessment Patient ceased treatment due to SOA and fatigue. Plan dismissal to [place] this week. PT Short Term Goals Short Term Goals Transfers (B,C,W/C) (FIM): 3 PT Usp Goals Usp Goals PT Usp Goals Time Frame: May 24, 2017 Transfers (B,C,W/C) (FIM): 3 PT Plan Treatment/Plan Treatment Plan: Continue Plan of Care Treatment Plan: Bed Mobility, Education, Functional Activity Alexi, Functional Strength, Gait, Safety, Therapeutic Exercise, Transfers Treatment Duration: May 24, 2017 Frequency: 11 times per week Estimated Hrs Per Day: .5 hour per day Patient and/or Family Agrees t: Yes Time/GCodes Time In: 1040 Time Out: 1055 Total Billed Treatment Time: 15 Total Billed Treatment 1 visit EX 15 min ANKITA EASTON PT May 21, 2017 11:35
--- NOTE | 2017-05-21 13:56 | Physical Therapy Progress Note ---
Therapy Progress Note Patient declined PT this p.m. due to extreme fatigue. Education with patient on importance of exercise to promote healing and prevent possible negative side effects, however, patient continue to decline. 1 ref ANKITA EASTON PT May 21, 2017 13:56
--- NOTE | 2017-05-21 14:06 | Cardiology Progress Note ---
Cardiology SOAP Progress Note Subjective: Slow improvement. Objective: I&O/Vital Signs Vital Sign - Last 12Hours 05/21/17 05/21/17 05/21/17 05/21/17 04:00 06:56 08:00 09:00 Temp 96.0 97.7 Pulse 89 100 Resp 20 20 B/P (MAP) 114/75 (88) 106/61 (76) Pulse Ox 91 95 95 95 O2 Delivery High Flow N/C High Flow N/C Nasal Cannula Nasal Cannula O2 Flow Rate 4.00 3.50 5.00 5.00 Intake and Output 05/21/17 00:00 Intake Total 1390 ml Output Total 1500 ml Balance -110 ml Weight (Pounds): 126 Weight (Ounces): 9.6 Weight (Calculated Kilograms): 57.477136 Constitutional: AAO x 3 Respiratory: lungs clear to percussion, lungs clear to auscultation Cardiovascular: regular rate-rhythm, S1 and S2 Gastrointestional: No tender, No soft, No round, No distended, No pulsatile mass, No organomegaly, No guarding, No rebound, No tenderness, No hernia, No mass, No audible bowel sounds, No abnormal bowel sounds, No abdominal bruits, No spleenomegaly, No other Extremities: tenderness Neurologic/Psychiatric: No cloth drier II-XII nml as tested, No no motor/sensory deficits, alert, normal mood/affect, oriented x 3, No abnormal cerebellar tests , No abnormal cloth drier II-XII, No abnormal gait, No aphasia, No EOM palsy, No facial droop, No motor weakness, No sensory deficit, No depressed affect, No disoriented x 3, No other, No grossly intact, No power is 5/5 both on sides Skin: No normal color, No warm/dry, No cyanosis, No cool, No diaphoresis, No damp, ecchymosis (significant ecchymosis from the elbow to about shoulder on the right. Multiple other small bruises throughout the body.), No jaundice, No mottled, No pallor, No rash, No tattoos/piercings, No ulcerations, No rash on exposed areas, No ulcerations on exposed areas, No other Results/Procedures: Labs Laboratory Tests 05/20/17 15:43: Glucometer 224H 05/20/17 21:06: Glucometer 175H 05/21/17 05:18: Glucometer 145H 05/21/17 05:20: White Blood Count 9.5, Red Blood Count 2.73L, Hemoglobin 7.8L, Hematocrit 26L, Mean Corpuscular Volume 95, Mean Corpuscular Hemoglobin 29, Mean Corpuscular Hemoglobin Concent 30L, Red Cell Distribution Width 16.3H, Platelet Count 364, Mean Platelet Volume 9.6, Neutrophils (%) (Auto) 79H, Lymphocytes (%) (Auto) 7L , Monocytes (%) (Auto) 10, Eosinophils (%) (Auto) 3, Basophils (%) (Auto) 1, Neutrophils # (Auto) 7.5, Lymphocytes # (Auto) 0.7L, Monocytes # (Auto) 1.0, Eosinophils # (Auto) 0.2, Basophils # (Auto) 0.1, Sodium Level 138, Potassium Level 4.0, Chloride Level 95L, Carbon Dioxide Level 34H, Anion Gap 9, Blood Urea Nitrogen 12, Creatinine 0.61, Estimat Glomerular Filtration Rate > 60, BUN/ Creatinine Ratio 20, Glucose Level 149H, Calcium Level 8.2L, Total Bilirubin 0.7 , Aspartate Amino Transf (AST/SGOT) 16, Alanine Aminotransferase (ALT/SGPT) 16, Alkaline Phosphatase 68, Total Protein 4.5L, Albumin 1.9L 05/21/17 11:29: Glucometer 169H Microbiology 05/14/17 Blood Culture - Final, Complete No growth 05/14/17 MRSA Screen - Final, Complete MRSA not isolated A/P: Assessment/Dx: Hip and right arm fracture. Right lower lobe pneumonia/sepsis- improved CAD/CABG, Paroxysmal atrial fibrillation, Diastolic dysfunction, Tricuspid regurgitation Plan: Outpatient of Dr. Pal. Hip fracture: post hip surgery. Slow improvement. Might require inpatient rehabilitation. Pneumonia/sepsis: Deferred to Dr. Morris and Dr. Dubois. Improved. CAD. No active complaints. S/p CABG Feb [address] Guzman in [place], [place]. She had LEMUS to LAD, SVG to PDA, and sequential SVG to diagonal and OM. Last cardiac cath was on 07/12/15 and it showed multivessel CAD with patent SVG to distal RCA, patent LEMUS to distal LAD, and a sequential SVG with 50-60% mid- graft stenosis that was patent to first diag but occluded to OM. She underwent successful balloon angioplasty of the OM to which the graft was occluded. LVEF 60% on cath 07/12/15 with mild elevation of LVEDP Echocardiogram from January 03, 2015 showed LVEF 60%. Last echo of 04/19/16 showed LVEF 55-60%, mod diastolic dysfunction of LV, severe pulm htn with RVSP approx 72 mmHg Pulm htn, managed by Dr Dubois PAD. 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 Abdominal aortic aneurysm screening of February 2016 was negative for abdominal aortic aneurysm S/p radiation and chemo for right lung cancer in 2016, managed by Dr Contreras and Sherly H/o intermittent pneumonia Tobacco use quit in early 2012 Hypertension COPD with associated pulm hypertension Hyperlipidemia, controlled Hypothyroidism being treated with thyroid replacement therapy Carotid u/s from July 2014 showed minimal bilat carotid arterial disease without evidence of hemodynamic significance Mild hyperglycemia, suggestive of borderline DM II, on blood work of 07/12/15 Thank you for your consultation. Please call me if you have any questions. Paddy Funk MD, FACP, FACC, FSCAI, FHRS, CCDS Interventional Cardiology Cardiac Electrophysiology Vascular Medicine and Endovascular Interventions Melanie FUNK MD May 21, 2017 2:06 pm
--- NOTE | 2017-05-21 14:14 | Occupational Ther Daily Note ---
OT Current Status-Daily Note Subjective When pt. asked OT how she was feeling, pt. states, "I hurt everywhere." Nursing aware. Appearance Pt. up in chair. States that she is ready to go back to bed. Mental Status/Objective Patient Orientation: Person, Place Functional [place] Measure 0=Not Assessed/NA 4=Minimal Assistance 1=Total Assistance 5=Supervision or Setup 2=Maximal Assistance 6=Modified [place] 3=Moderate Assistance 7=Complete [place] ADL-Treatment Transfers (B, C, W/C) (FIM): 3 Other Treatment OT placed isotoner glove yesterday to right hand. Checked this today. Swelling has subsided substantially. OT removed glove and had pt. wiggle fingers. Pt. was able to put her own glove back on. Pt. states that she has been using her right hand to feed herself. States that she has been able to bring her fork to mouth and hold items in this hand. Pt. is encouraged to continue doing this. OT assists pt. in stance with mod assist, and pivot to right side. Pt. sits on bed, and is able to stand again with OT in front of her to assist. Pt. lays down with mod assist and is positioned to comfort level. All needs met in bed. Education OT Patient Education: Correct positioning, Modified ADL techniques, Progress toward Goal/Update tx plan, Purpose of tx/functional activities, Reviewed precautions, Rehab process, Transfer techniques Teaching Recipient: Patient Teaching Methods: Demonstration, Discussion Response to Teaching: Verbalize Understanding, Return Demonstration OT Short Term Goals Short Term Goals Time Frame: Jun 01, 2017 Eating(FIM): 5 Grooming(FIM): 5 Bathing(FIM): 3 Upper Body Dressing(FIM): 3 Toileting(FIM): 3 Transfers (B,C,W/C) (FIM): 3 Toilet/Commode Transfer(FIM): 3 Additional Short Term Goals: 1-Demonstrate ADL Tasks, 2-Verbalize Understanding , 3-ImproveStrength/Alexi 1=Demonstrate adherence to instructed precautions during ADL tasks. 2=Patient will verbalize/demonstrate understanding of assistive devices/ modifications for ADL. 3=Patient will improve strength/tolerance for activity to enable patient to perform ADL's. OT Cooking Appliance Repair Technician Goals Mcc Goals Time Frame: Jun 15, 2017 Eating (FIM): 6 Grooming(FIM): 5 Bathing(FIM): 5 Upper Body Dressing(FIM): 5 Lower Body Dressing(FIM): 5 Toileting(FIM): 6 Transfers (B,C,W/C) (FIM): 6 Toilet/Commode Transfer(FIM): 6 Shower Transfer(FIM): 4 Additional Goals: 1-Demonstrate ADL Tasks, 2-Verbalize Understanding, 3- ImproveStrength/Alexi 1=Demonstrate adherence to instructed precautions during ADL tasks. 2=Patient will verbalize/demonstrate understanding of assistive devices/ modifications for ADL. 3=Patient will improve strength/tolerance for activity to enable patient to perform ADL's. OT Education/Plan Problem List/Assessment Assessment: Decreased Activ Tolerance, Decreased UE Strength, Dependent Transfers, Impaired Bed Mobility, Impaired Coordination, Impaired Funct Balance , Impaired I ADL's, Impaired Self-Care Skills, Restricted Funct UE ROM Discharge Recommendations Plan/Recommendations: Continue POC Therapy D/C Recommendations: [facility] (TCU/NH) Treatment Plan/Plan of Care Treatment,Training & Education: Yes Patient would benefit from OT for education, treatment and training to promote independence in ADL's, mobility, safety and/or upper extremity function for ADL' s. Plan of Care: ADL Retraining, Functional Mobility, UE Funct Exercise/Act Treatment Duration: Jun 15, 2017 Frequency: 5 times per week Estimated Hrs Per Day: .25 hour per day Agreement: Yes Rehab Potential: Fair Time/GCodes Start Time: 11:25 Stop Time: 11:55 Total Time Billed (hr/min): 30 Billed Treatment Time 1, FA x 2 ROMY MOCTEZUMA OT May 21, 2017 14:13
[2017-05-21] MEDS: FUROSEMIDE 20 MG (LASIX) TAB PO SCH (14:25)
[2017-05-21] MEDS: ASPIRIN E.C. 81 MG (ECOTRIN) TAB PO SCH (14:26)
[2017-05-21 16:00] VITALS: BP 108/65
[2017-05-21] MEDS: LEVOTHYROXINE 50 MCG (LEVOTHROID) TAB PO SCH (20:18)
[2017-05-21] MEDS: ATORVASTATIN 40 MG (LIPITOR) TABLET PO SCH (20:19)
[2017-05-22 00:28] VITALS: BP 126/81
[2017-05-22] MEDS: RT-ALBUTEROL/IPRATROPIUM 3 ML (DUONEB) VIAL INH SCH ×4 (03:09→19:36)
[2017-05-22] MEDS: oxyCODONE/APAP 5/325MG (PERCOCET 5) TABLET PO PRN ×5 (03:15→20:30)
[2017-05-22] MEDS: inSUlin (REGULAR) HUMAN 1 UNIT/0.01 ML (CHARGE PER UNIT) SC SCH ×4 (05:46→20:30)
[2017-05-22 06:10] LABS: BASOPHILS # (AUTO) 0.1 10^3/uL (0.0-0.1); BASOPHILS % (AUTO) 1 % (0-10); EOSINOPHILS # (AUTO) 0.2 10^3/uL (0.0-0.3); EOSINOPHILS % (AUTO) 2 % (0-10); HEMATOCRIT 26 % (35-52); LYMPHOCYTES % (AUTO) 11 % (12-44); MEAN CORPUSCULAR HEMOGLOBIN 29 PG (25-34); MEAN CORPUSCULAR HGB CONC 30 G/DL (32-36); MEAN CORPUSCULAR VOLUME 95 FL (80-99); MEAN PLATELET VOLUME 9.8 FL (7.4-10.4); MONOCYTES # (AUTO) 0.8 X 10^3 (0.0-1.0); MONOCYTES % (AUTO) 9 % (0-12); NEUTROPHILS # (AUTO) 6.7 X 10^3 (1.8-7.8); NEUTROPHILS % (AUTO) 77 % (42-75); PLATELET COUNT 418 10^3/uL (130-400); RED BLOOD COUNT 2.78 10^6/uL (4.35-5.85); RED CELL DISTRIBUTION WIDTH 16.6 % (10.0-14.5); WHITE BLOOD COUNT 8.6 10^3/uL (4.3-11.0)
[2017-05-22] MEDS: NYSTATIN ORAL SUSP 5 ML UDC PO SCH ×3 (06:11→16:22)
[2017-05-22] MEDS: PANTOPRAZOLE 40 MG (PROTONIX) TAB PO SCH (06:11)
[2017-05-22] MEDS: metFORMIN 500 MG (GLUCOPHAGE) TAB PO SCH ×2 (06:11→16:22)
[2017-05-22 06:36] LABS: ALANINE AMINOTRANSFERASE 16 U/L (0-55); ALBUMIN 2.1 GM/DL (3.2-4.5); ALKALINE PHOSPHATASE 72 U/L (40-136); BILIRUBIN,TOTAL 0.6 MG/DL (0.1-1.0); BUN/CREATININE RATIO 21; CALCIUM 8.2 MG/DL (8.5-10.1); CARBON DIOXIDE 39 MMOL/L (21-32); CHLORIDE 92 MMOL/L (98-107); CREATININE SERUM 0.53 MG/DL (0.60-1.30); GFR ESTIMATED > 60; GLUCOSE 139 MG/DL (70-105); POTASSIUM 3.9 MMOL/L (3.6-5.0); SODIUM 136 MMOL/L (135-145); TOTAL PROTEIN 4.7 GM/DL (6.4-8.2)
[2017-05-22] MEDS: meTOprolol TARTRATE 50 MG (LOPRESSOR) TAB PO SCH ×2 (07:48→20:30)
[2017-05-22] MEDS: DICLOFENAC 1% GEL 100 GM (VOLTAREN) TUBE TOP SCH ×4 (07:48→20:32)
[2017-05-22] MEDS: APIXABAN 2.5 MG (ELIQUIS) TABLET PO SCH ×2 (07:48→20:29)
[2017-05-22 08:00] VITALS: BP 133/64
--- NOTE | 2017-05-22 08:12 | Progress Note-Standard ---
Standard Progress Note Progress Notes/Assess & Plan Date Seen by Provider: May 22, 2017 Time Seen by Provider: 07:26 Progress/Assessment & Plan Pt. feeling better Vital Signs Date Time Temp Pulse Resp B/P (MAP) Pulse Ox O2 Delivery O2 Flow Rate FiO2 05/16/17 06:00 89 16 139/82 (101) 96 Nasal Cannula 4.00 05/16/17 05:00 83 13 144/82 (102) 96 Nasal Cannula 4.00 05/16/17 04:34 97.6 Nasal Cannula 4.00 05/16/17 04:00 89 15 139/82 (101) 96 Nasal Cannula 4.00 05/16/17 04:00 Nasal Cannula 4.00 05/16/17 03:00 94 15 143/102 (116) 96 Nasal Cannula 4.00 05/16/17 02:00 89 13 146/107 (120) 96 Nasal Cannula 4.00 05/16/17 01:00 99 05/16/17 01:00 100 21 153/89 (110) 96 Nasal Cannula 4.00 05/16/17 00:00 93 14 135/101 (112) 97 Nasal Cannula 4.00 05/16/17 00:00 Nasal Cannula 4.00 05/15/17 23:34 98.7 Nasal Cannula 4.00 05/15/17 23:00 90 15 154/88 (110) 97 Nasal Cannula 4.00 05/15/17 22:00 98 19 166/90 (115) 95 Nasal Cannula 4.00 05/15/17 21:00 94 17 157/85 (109) 95 Nasal Cannula 4.00 05/15/17 20:00 101 20 158/84 (108) 96 Nasal Cannula 4.00 05/15/17 20:00 98.3 Nasal Cannula 4.00 05/15/17 20:00 Nasal Cannula 4.00 05/15/17 19:00 94 05/15/17 19:00 96 25 141/84 (103) 96 Nasal Cannula 4.00 05/15/17 18:00 Nasal Cannula 4.00 05/15/17 18:00 96 25 141/82 (101) 94 Nasal Cannula 4.00 05/15/17 17:00 87 26 159/81 (107) 95 Nasal Cannula 4.00 05/15/17 16:10 98.4 05/15/17 16:05 Nasal Cannula 4.00 05/15/17 16:00 98 22 142/79 (100) 96 Nasal Cannula 4.00 05/15/17 15:00 98 20 138/87 (104) 94 Nasal Cannula 4.00 05/15/17 14:00 89 18 138/80 (99) 96 Nasal Cannula 4.00 05/15/17 13:12 98.1 93 155/89 05/15/17 13:00 98 23 150/78 (102) 98 Nasal Cannula 4.00 05/15/17 13:00 88 05/15/17 12:45 Nasal Cannula 4.00 05/15/17 12:03 98.2 05/15/17 12:00 101 14 124/93 (103) 98 Nasal Cannula 4.00 05/15/17 11:00 90 17 146/73 (97) 97 Nasal Cannula 4.00 05/15/17 10:20 96.4 89 20 144/75 96 Nasal Cannula 4.00 05/15/17 10:02 96.7 92 20 126/71 98 Nasal Cannula 4.00 05/15/17 10:00 90 17 126/71 (89) 99 Nasal Cannula 4.00 05/15/17 09:09 96.7 94 18 117/63 99 Nasal Cannula 4.00 05/15/17 09:00 Nasal Cannula 4.00 05/15/17 09:00 86 18 99/60 (73) 100 Nasal Cannula 4.00 05/15/17 08:36 97.1 98 18 117/62 (80) 96 Nasal Cannula 4.00 05/15/17 08:00 93 16 112/65 (81) 97 Nasal Cannula 4.00 I & O 05/16/17 07:00 Intake Total 4217 ml Output Total 1600 ml Balance 2617 ml Laboratory Tests Test 05/15/17 08:27 05/15/17 09:04 05/15/17 10:20 05/15/17 10:48 Range/Units Glucometer 34 *L 106 52 *L 83 70-110 MG/DL Test 05/15/17 11:33 05/15/17 12:07 05/15/17 12:29 05/15/17 13:40 Range/Units Glucometer 79 77 70-110 MG/DL Lab Scanned Report Transfusion Reaction Form [id number] Hemoglobin 9.2 #L 11.5-16.0 G/DL Hematocrit 27 L 35-52 % Test 05/15/17 14:31 05/15/17 15:27 05/15/17 16:25 05/15/17 17:57 Range/Units Glucometer 58 *L 63 L 60 *L 58 *L 70-110 MG/DL Test 05/15/17 18:44 05/15/17 18:52 05/15/17 20:09 05/15/17 20:59 Range/Units Hemoglobin 9.2 L 11.5-16.0 G/DL Hematocrit 27 L 35-52 % Glucometer 81 144 H 112 H 70-110 MG/DL Test 05/15/17 23:02 05/16/17 00:25 05/16/17 04:20 Range/Units Glucometer 116 H 70-110 MG/DL Hemoglobin 9.2 L 9.3 L 11.5-16.0 G/DL Hematocrit 28 L 28 L 35-52 % White Blood Count 14.7 H 4.3-11.0 10^3/uL Red Blood Count 3.17 L 4.35-5.85 10^6/uL Mean Corpuscular Volume 87 80-99 FL Mean Corpuscular Hemoglobin 29 25-34 PG Mean Corpuscular Hemoglobin Concent 34 32-36 G/DL Red Cell Distribution Width 15.0 H 10.0-14.5 % Platelet Count 295 130-400 10^3/uL Mean Platelet Volume 9.7 7.4-10.4 FL Neutrophils (%) (Auto) 92 H 42-75 % Lymphocytes (%) (Auto) 2 L 12-44 % Monocytes (%) (Auto) 5 0-12 % Eosinophils (%) (Auto) 1 0-10 % Basophils (%) (Auto) 0 0-10 % Neutrophils # (Auto) 13.6 H 1.8-7.8 X 10^3 Lymphocytes # (Auto) 0.3 L 1.0-4.0 X 10^3 Monocytes # (Auto) 0.7 0.0-1.0 X 10^3 Eosinophils # (Auto) 0.1 0.0-0.3 10^3/uL Basophils # (Auto) 0.0 0.0-0.1 10^3/uL Sodium Level 129 L 135-145 MMOL/L Potassium Level 3.9 3.6-5.0 MMOL/L Chloride Level 94 L 98-107 MMOL/L Carbon Dioxide Level 28 21-32 MMOL/L Anion Gap 7 5-14 MMOL/L Blood Urea Nitrogen 17 7-18 MG/DL Creatinine 0.70 0.60-1.30 MG/DL Estimat Glomerular Filtration Rate > 60 BUN/Creatinine Ratio 24 Glucose Level 95 70-105 MG/DL Calcium Level 7.4 L 8.5-10.1 MG/DL Phosphorus Level 2.2 L 2.3-4.7 MG/DL Magnesium Level 1.8 1.8-2.4 MG/DL Total Bilirubin 0.7 0.1-1.0 MG/DL Aspartate Amino Transf (AST/SGOT) 37 H 5-34 U/L Alanine Aminotransferase (ALT/SGPT) 32 0-55 U/L Alkaline Phosphatase 71 40-136 U/L Total Protein 4.5 L 6.4-8.2 GM/DL Albumin 2.1 L 3.2-4.5 GM/DL RLE--nvi distally. RUE decreased echymosis and swelling R IT femur fx and R surgical neck of humerus fx plan for ORIF R hip later today pt would like to go to [facility] for recovery Final Diagnosis No complaints RUE--echymotic. Mildly tender at prox humerus RLE--decreased edema. No calf tenderness. Neg SLR s/p r hip IM shay and r humerus fx continue mobilizing await placement--will FU in office next week for staple removal and re CARMEN Beaulieu MD May 22, 2017 08:12
--- NOTE | 2017-05-22 08:14 | Progress Note (SOAP) ---
Subjective Time Seen by Provider: 08:10 Subjective/Events-last exam To take as Lai catheter today. Patient to speak to oncologist today. Plan to discharge tomorrow to via [facility]. Patient given lecture today. Right hip fracture and right shoulder fracture. COPD. Lung cancer. Pneumonia. Sepsis Objective Exam Vital Signs Date Time Temp Pulse Resp B/P (MAP) Pulse Ox O2 Delivery O2 Flow Rate FiO2 05/22/17 03:10 94 Nasal Cannula 4.00 05/22/17 00:28 97.8 90 17 126/81 (96) 99 Nasal Cannula 5.00 05/21/17 21:17 92 Nasal Cannula 4.00 05/21/17 20:20 Nasal Cannula 5.00 05/21/17 16:00 98.4 85 16 108/65 (79) 95 Nasal Cannula 5.00 05/21/17 15:00 97 Nasal Cannula 3.50 05/21/17 09:00 95 Nasal Cannula 5.00 I & O 05/22/17 07:00 Intake Total 2032 ml Output Total 3950 ml Balance -1918 ml Capillary Refill : Less Than 3 SecondsLess Than 3 Seconds General Appearance: No Apparent Distress, Thin HEENT: Normal ENT Inspection Neck: Full Range of Motion Respiratory: No Accessory Muscle Use, No Respiratory Distress, Decreased Breath Sounds Cardiovascular: Regular Rate, Rhythm, No Murmur Gastrointestinal: non tender, soft Results Lab Laboratory Tests 05/22/17 05:50 Laboratory Tests 05/21/17 11:29: Glucometer 169H 05/21/17 16:24: Glucometer 145H 05/21/17 20:13: Glucometer 201H 05/22/17 05:40: Glucometer 147H 05/22/17 05:50: White Blood Count 8.6, Red Blood Count 2.78L, Hemoglobin 8.0L, Hematocrit 26L, Mean Corpuscular Volume 95, Mean Corpuscular Hemoglobin 29, Mean Corpuscular Hemoglobin Concent 30L, Red Cell Distribution Width 16.6H, Platelet Count 418H, Mean Platelet Volume 9.8, Neutrophils (%) (Auto) 77H, Lymphocytes (%) (Auto) 11L , Monocytes (%) (Auto) 9, Eosinophils (%) (Auto) 2, Basophils (%) (Auto) 1, Neutrophils # (Auto) 6.7, Lymphocytes # (Auto) 1.0, Monocytes # (Auto) 0.8, Eosinophils # (Auto) 0.2, Basophils # (Auto) 0.1, Sodium Level 136, Potassium Level 3.9, Chloride Level 92L, Carbon Dioxide Level 39H, Anion Gap 5, Blood Urea Nitrogen 11, Creatinine 0.53L, Estimat Glomerular Filtration Rate > 60, BUN /Creatinine Ratio 21, Glucose Level 139H, Calcium Level 8.2L, Total Bilirubin 0.6, Aspartate Amino Transf (AST/SGOT) 15, Alanine Aminotransferase (ALT/SGPT) 16, Alkaline Phosphatase 72, Total Protein 4.7L, Albumin 2.1L Microbiology 05/14/17 Blood Culture - Final, Complete No growth 05/14/17 MRSA Screen - Final, Complete MRSA not isolated Assessment/Plan Assessment/Plan Assess & Plan/Chief Complaint Sepsis with pneumonia. fall Acute blood loss. Hypotension resolved. COPD with acute exacerbation. Squamous cell lung cancer. Patient to have hip surgery today. Patient has hip fracture and shoulder fracture. . 05/17/17. 4. Sepsis with pneumonia. Acute blood loss. Hypertension. COPD. Swelling of cell lung cancer. Hip fracture had surgery yesterday. Right shoulder fracture. Hemoglobin and hematocrit stable. Chest x-ray little worse. . 05/20/17. Patient improving. Sepsis with pneumonia. Acute blood loss. Hypertension. COPD. Hip fracture. Shoulder fracture right. Lung cancer. Patient stable and improving. . 05/21/17. Sepsis with pneumonia. Acute blood loss. Hypertension history. COPD. Lung cancer. Patient to see social service assistant for placement. . 05/22/17. Sepsis with pneumonia. fall. Acute blood loss. COPD. Lung cancer area Fracture of right hip and right upper arm. Plan to discharge tomorrow to [facility] Clinical Quality Measures DVT/VTE Risk/Contraindication: Risk Factor Score Per Nursin RFS Level Per Nursing on Admit: 4+=Very High Contraindications-Pharm: Other *list below* WEST MCCAULEY DO May 22, 2017 08:14
[2017-05-22] MEDS ORDERED: MILK OF MAGNESIA 400 MG/5 ML 30 ML UDC PO PRN (09:00)
[2017-05-22] MEDS: FUROSEMIDE 20 MG (LASIX) TAB PO SCH (09:32)
--- NOTE | 2017-05-22 10:05 | Cardiology Progress Note ---
Cardiology SOAP Progress Note Subjective: slow improvement. Objective: I&O/Vital Signs Vital Sign - Last 12Hours 05/22/17 05/22/17 05/22/17 00:28 03:10 08:00 Temp 97.8 96.9 Pulse 90 93 Resp 17 20 B/P (MAP) 126/81 (96) 133/64 (87) Pulse Ox 99 94 97 O2 Delivery Nasal Cannula Nasal Cannula Nasal Cannula O2 Flow Rate 5.00 4.00 5.00 Intake and Output 05/22/17 00:00 Intake Total 1782 ml Output Total 3150 ml Balance -1368 ml Weight (Pounds): 124 Weight (Ounces): 5.0 Weight (Calculated Kilograms): [id number] Constitutional: AAO x 3 Respiratory: lungs clear to percussion, lungs clear to auscultation Cardiovascular: regular rate-rhythm, S1 and S2 Gastrointestional: No tender, No soft, No round, No distended, No pulsatile mass, No organomegaly, No guarding, No rebound, No tenderness, No hernia, No mass, No audible bowel sounds, No abnormal bowel sounds, No abdominal bruits, No spleenomegaly, No other Extremities: tenderness Neurologic/Psychiatric: 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 Multiple other small bruises throughout the body.), No jaundice, No mottled, No pallor, No rash, No tattoos/piercings, No ulcerations, No rash on exposed areas, No ulcerations on exposed areas, No other Results/Procedures: Labs Laboratory Tests 05/21/17 11:29: Glucometer 169H 05/21/17 16:24: Glucometer 145H 05/21/17 20:13: Glucometer 201H 05/22/17 05:40: Glucometer 147H 05/22/17 05:50: White Blood Count 8.6, Red Blood Count 2.78L, Hemoglobin 8.0L, Hematocrit 26L, Mean Corpuscular Volume 95, Mean Corpuscular Hemoglobin 29, Mean Corpuscular Hemoglobin Concent 30L, Red Cell Distribution Width 16.6H, Platelet Count 418H, Mean Platelet Volume 9.8, Neutrophils (%) (Auto) 77H, Lymphocytes (%) (Auto) 11L , Monocytes (%) (Auto) 9, Eosinophils (%) (Auto) 2, Basophils (%) (Auto) 1, Neutrophils # (Auto) 6.7, Lymphocytes # (Auto) 1.0, Monocytes # (Auto) 0.8, Eosinophils # (Auto) 0.2, Basophils # (Auto) 0.1, Sodium Level 136, Potassium Level 3.9, Chloride Level 92L, Carbon Dioxide Level 39H, Anion Gap 5, Blood Urea Nitrogen 11, Creatinine 0.53L, Estimat Glomerular Filtration Rate > 60, BUN /Creatinine Ratio 21, Glucose Level 139H, Calcium Level 8.2L, Total Bilirubin 0.6, Aspartate Amino Transf (AST/SGOT) 15, Alanine Aminotransferase (ALT/SGPT) 16, Alkaline Phosphatase 72, Total Protein 4.7L, Albumin 2.1L Microbiology 05/14/17 Blood Culture - Final, Complete No growth 05/14/17 MRSA Screen - Final, Complete MRSA not isolated A/P: Assessment/Dx: Hip and right arm fracture. Right lower lobe pneumonia/sepsis- improved CAD/CABG, Paroxysmal atrial fibrillation, Diastolic dysfunction, Tricuspid regurgitation Plan: Outpatient of Dr. Pal. Hip fracture: post hip surgery. Slow improvement. Might require inpatient rehabilitation. Pneumonia/sepsis: Deferred to Dr. Morris and Dr. Dubois. Improved. CAD. No active complaints. S/p CABG Feb [address] Guzman in [place], [place]. She had LEMUS to LAD, SVG to PDA, and sequential SVG to diagonal and OM. Last cardiac cath was on 07/12/15 and it showed multivessel CAD with patent SVG to distal RCA, patent LEMUS to distal LAD, and a sequential SVG with 50-60% mid- graft stenosis that was patent to first diag but occluded to OM. She underwent successful balloon angioplasty of the OM to which the graft was occluded. LVEF 60% on cath 07/12/15 with mild elevation of LVEDP Echocardiogram from January 03, 2015 showed LVEF 60%. Last echo of 04/19/16 showed LVEF 55-60%, mod diastolic dysfunction of LV, severe pulm htn with RVSP approx 72 mmHg Pulm htn, managed by Dr Dubois PAD. 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 Abdominal aortic aneurysm screening of February 2016 was negative for abdominal aortic aneurysm S/p radiation and chemo for right lung cancer in 2016, managed by Dr Contreras and Sherly H/o intermittent pneumonia Tobacco use quit in early 2012 Hypertension COPD with associated pulm hypertension Hyperlipidemia, controlled Hypothyroidism being treated with thyroid replacement therapy Carotid u/s from July 2014 showed minimal bilat carotid arterial disease without evidence of hemodynamic significance Mild hyperglycemia, suggestive of borderline DM II, on blood work of 07/12/15 Thank you for your consultation. Please call me if you have any questions. Paddy Funk MD, FACP, FACC, FSCAI, FHRS, CCDS Interventional Cardiology Cardiac Electrophysiology Vascular Medicine and Endovascular Interventions Melanie FUNK MD May 22, 2017 10:05
--- NOTE | 2017-05-22 10:46 | Physical Therapy Daily Note ---
PT Daily Note-Current Subjective Pt sitting up in recliner upon arrival. Pt had recently transferred to recliner. Pt agrees to PT. Pain Numeric Pain Scale: 6 Location: Right Location Body Site: Hip Pain Description: Ache Mental Status Patient Orientation: Person, Place, Time, Situation Transfers Functional [place] Measure 0=Not Assessed/NA 4=Minimal Assistance 1=Total Assistance 5=Supervision or Setup 2=Maximal Assistance 6=Modified [place] 3=Moderate Assistance 7=Complete IndependenceIRFPAI Quality Coding Scale 6 Independent with activity with or without an assistive device 5 Patient requires set up or clean up by helper. Patient completes activity by themselves 4 Supervision or touching assist (CGA). [place] provide cues , steadying assist 3 The helper provides less than half the effort to complete the activity 2 The helper provides more than half the effort to complete the activity 1 Dependent. The helper does all the effort to complete an activity 7 Patient refused to complete or attempt activity 9 The patient did not perform the activity before the current illness or injury 88 Not attempted due to Medical conditions or safety concerns Weight Bearing Right Lower Extremity: Right Partial Weight Bearing (50%) Left Lower Extremity: Left Full Weight Bearing Exercises Supine Ex: Ankle pumps, Quad Set, Heel Slides, Straight leg raise, Hip abd/add Supine Reps: 15 Treatments Pt completes Supine Ex reclined in recliner. Pt also wanted to discuss therapy at SNF and AD pt might use for ambulation. Pt rests in recliner at end of tx with all needs met. Assessment Current Status: Good Progress Pt can complete Supine with LLE but is PROM to AAROM with RLE. Pt struggles with weakness and pain right now but is trying to use RLE more. PT Short Term Goals Short Term Goals Transfers (B,C,W/C) (FIM): 3 PT Correction Goals Correction Goals PT Retail Account Representative Goals Time Frame: May 24, 2017 Transfers (B,C,W/C) (FIM): 3 PT Plan Problem List Problem List: Activity Tolerance, Functional Strength, Safety, Balance, Gait, Transfer Treatment/Plan Treatment Plan: Continue Plan of Care Treatment Plan: Bed Mobility, Education, Functional Activity Alexi, Functional Strength, Gait, Safety, Therapeutic Exercise, Transfers Treatment Duration: May 24, 2017 Frequency: 11 times per week Estimated Hrs Per Day: .5 hour per day Patient and/or Family Agrees t: Yes Safety Risks/Education Patient Education: Gait Training, Transfer Techniques, Correct Positioning, Safety Issues Teaching Recipient: Patient Teaching Methods: Discussion Response to Teaching: Verbalize Understanding Time/GCodes Time In: 936 Time Out: 956 Total Billed Treatment Time: 20 Total Billed Treatment 1, EX (20m) KENAN COLON UNDERGROUND MINE SUPERINTENDENT May 22, 2017 10:46
--- NOTE | 2017-05-22 11:24 | Occupational Ther Daily Note ---
OT Current Status-Daily Note Subjective Pt alert, sitting in recliner. Pt agreed to therapy. C/o pain in R UE/LE, did not rate. Mental Status/Objective Patient Orientation: Person, Place, Time, Situation Functional [place] Measure 0=Not Assessed/NA 4=Minimal Assistance 1=Total Assistance 5=Supervision or Setup 2=Maximal Assistance 6=Modified [place] 3=Moderate Assistance 7=Complete [place] Attachments: Lai Catheter ADL-Treatment Bathing (FIM): 3 (After set up, pt able to partially was upper body and lower body. Pt had difficulty with washing L UE due to decrease movement of R UE. Pt stood with mod A then stabilized self on elevated surface while assist to cleanse buttocks. Pt sat to cleanse [place] area.) Bathing Location: R Arm, L Upper Leg, R Upper Leg, Chest, Abdomen, Perineal Area Pt had difficulty moving due to pain and weight bearing precautions. After therapy, nrsg present in room. Call light/phone in reach. All needs met in room. OT Short Term Goals Short Term Goals Time Frame: Jun 01, 2017 Eating(FIM): 5 Grooming(FIM): 5 Bathing(FIM): 3 Upper Body Dressing(FIM): 3 Toileting(FIM): 3 Transfers (B,C,W/C) (FIM): 3 Toilet/Commode Transfer(FIM): 3 Additional Short Term Goals: 1-Demonstrate ADL Tasks, 2-Verbalize Understanding , 3-ImproveStrength/Alexi 1=Demonstrate adherence to instructed precautions during ADL tasks. 2=Patient will verbalize/demonstrate understanding of assistive devices/ modifications for ADL. 3=Patient will improve strength/tolerance for activity to enable patient to perform ADL's. OT [employer] Attendant Goals Senior Care Goals Time Frame: Jun 15, 2017 Eating (FIM): 6 Grooming(FIM): 5 Bathing(FIM): 5 Upper Body Dressing(FIM): 5 Lower Body Dressing(FIM): 5 Toileting(FIM): 6 Transfers (B,C,W/C) (FIM): 6 Toilet/Commode Transfer(FIM): 6 Shower Transfer(FIM): 4 Additional Goals: 1-Demonstrate ADL Tasks, 2-Verbalize Understanding, 3- ImproveStrength/Alexi 1=Demonstrate adherence to instructed precautions during ADL tasks. 2=Patient will verbalize/demonstrate understanding of assistive devices/ modifications for ADL. 3=Patient will improve strength/tolerance for activity to enable patient to perform ADL's. OT Education/Plan Discharge Recommendations Plan/Recommendations: Continue POC Treatment Plan/Plan of Care Patient would benefit from OT for education, treatment and training to promote independence in ADL's, mobility, safety and/or upper extremity function for ADL' s. Plan of Care: ADL Retraining, Functional Mobility, UE Funct Exercise/Act Treatment Duration: Jun 15, 2017 Frequency: 5 times per week Estimated Hrs Per Day: .25 hour per day Agreement: Yes Rehab Potential: Fair Time/GCodes Start Time: 10:50 Stop Time: 11:13 Total Time Billed (hr/min): 23 Billed Treatment Time 1 visit-ADL 2 (23 min) JOY MAYS May 22, 2017 11:24
[2017-05-22] MEDS: ASPIRIN E.C. 81 MG (ECOTRIN) TAB PO SCH (11:32)
--- NOTE | 2017-05-22 14:07 | Physical Therapy Daily Note ---
PT Daily Note-Current Subjective Pt sitting in recliner upon arrival. Pt agrees to PT for transfer to BSC. Pain Numeric Pain Scale: 6 Location: Right Location Body Site: Hip Pain Description: Ache Mental Status Patient Orientation: Person, Place, Time, Situation Transfers Functional [place] Measure 0=Not Assessed/NA 4=Minimal Assistance 1=Total Assistance 5=Supervision or Setup 2=Maximal Assistance 6=Modified [place] 3=Moderate Assistance 7=Complete IndependenceIRFPAI Quality Coding Scale 6 Independent with activity with or without an assistive device 5 Patient requires set up or clean up by helper. Patient completes activity by themselves 4 Supervision or touching assist (CGA). [place] provide cues , steadying assist 3 The helper provides less than half the effort to complete the activity 2 The helper provides more than half the effort to complete the activity 1 Dependent. The helper does all the effort to complete an activity 7 Patient refused to complete or attempt activity 9 The patient did not perform the activity before the current illness or injury 88 Not attempted due to Medical conditions or safety concerns Scootin Supine to/from Sit: 3 Sit to/from Stand: 3 Weight Bearing Right Lower Extremity: Right Partial Weight Bearing (50%) Left Lower Extremity: Left Full Weight Bearing Treatments Pt transfers from recliner to BSC using SPT x2 due to supporting RUE. Pt uses BSC then transfers from BSC to bed using SPT x2. Pt is assisted in positioning in bed as well. Pt rests in bed at end of tx with all needs met. Assessment Current Status: Fair Progress Pt is only able to complete SPT x2 at Min-Mod A due to WB status. Pt gets SOA easily. PT Short Term Goals Short Term Goals Transfers (B,C,W/C) (FIM): 3 PT Senior Living Goals Senior Living Goals PT Senior Living Goals Time Frame: May 24, 2017 Transfers (B,C,W/C) (FIM): 3 PT Plan Problem List Problem List: Activity Tolerance, Functional Strength, Safety, Balance, Gait, Transfer, Bed Mobility, ROM Treatment/Plan Treatment Plan: Continue Plan of Care Treatment Plan: Bed Mobility, Education, Functional Activity Alexi, Functional Strength, Gait, Safety, Therapeutic Exercise, Transfers Treatment Duration: May 24, 2017 Frequency: 11 times per week Estimated Hrs Per Day: .5 hour per day Patient and/or Family Agrees t: Yes Safety Risks/Education Patient Education: Transfer Techniques, Correct Positioning, Safety Issues Teaching Recipient: Patient Teaching Methods: Discussion Response to Teaching: Reinforcement Needed Time/GCodes Time In: 1320 Time Out: 1345 Total Billed Treatment Time: 25 Total Billed Treatment 1, FA x2 (25m) KENAN COLON PTA May 22, 2017 14:07
[2017-05-22 16:36] VITALS: BP 127/85
[2017-05-22] MEDS: LEVOTHYROXINE 50 MCG (LEVOTHROID) TAB PO SCH (20:29)
[2017-05-22] MEDS: ATORVASTATIN 40 MG (LIPITOR) TABLET PO SCH (20:29)
[2017-05-23] VITALS: BP 147/81
[2017-05-23] MEDS: NYSTATIN ORAL SUSP 5 ML UDC PO SCH ×2 (00:20→05:11)
[2017-05-23] MEDS: oxyCODONE/APAP 5/325MG (PERCOCET 5) TABLET PO PRN ×3 (00:20→10:11)
[2017-05-23] MEDS: RT-ALBUTEROL/IPRATROPIUM 3 ML (DUONEB) VIAL INH SCH (02:34)
[2017-05-23] MEDS: PANTOPRAZOLE 40 MG (PROTONIX) TAB PO SCH (05:11)
[2017-05-23] MEDS: metFORMIN 500 MG (GLUCOPHAGE) TAB PO SCH (05:11)
[2017-05-23 05:21] LABS: BASOPHILS # (AUTO) 0.1 10^3/uL (0.0-0.1); BASOPHILS % (AUTO) 1 % (0-10); EOSINOPHILS # (AUTO) 0.1 10^3/uL (0.0-0.3); EOSINOPHILS % (AUTO) 1 % (0-10); HEMATOCRIT 28 % (35-52); HEMOGLOBIN 8.5 G/DL (11.5-16.0); LYMPHOCYTES # (AUTO) 0.8 X 10^3 (1.0-4.0); LYMPHOCYTES % (AUTO) 7 % (12-44); MEAN CORPUSCULAR HEMOGLOBIN 29 PG (25-34); MEAN CORPUSCULAR HGB CONC 30 G/DL (32-36); MEAN CORPUSCULAR VOLUME 95 FL (80-99); MEAN PLATELET VOLUME 9.6 FL (7.4-10.4); MONOCYTES # (AUTO) 0.9 X 10^3 (0.0-1.0); MONOCYTES % (AUTO) 8 % (0-12); NEUTROPHILS # (AUTO) 8.8 X 10^3 (1.8-7.8); NEUTROPHILS % (AUTO) 83 % (42-75); PLATELET COUNT 499 10^3/uL (130-400); RED BLOOD COUNT 2.95 10^6/uL (4.35-5.85); WHITE BLOOD COUNT 10.6 10^3/uL (4.3-11.0)
[2017-05-23 05:39] LABS: ALANINE AMINOTRANSFERASE 19 U/L (0-55); ALBUMIN 2.2 GM/DL (3.2-4.5); ALKALINE PHOSPHATASE 85 U/L (40-136); BILIRUBIN,TOTAL 0.9 MG/DL (0.1-1.0); BUN/CREATININE RATIO 21; CALCIUM 8.5 MG/DL (8.5-10.1); CARBON DIOXIDE 37 MMOL/L (21-32); CHLORIDE 91 MMOL/L (98-107); CREATININE SERUM 0.52 MG/DL (0.60-1.30); GFR ESTIMATED > 60; GLUCOSE 118 MG/DL (70-105); POTASSIUM 4.1 MMOL/L (3.6-5.0); SODIUM 138 MMOL/L (135-145); TOTAL PROTEIN 5.1 GM/DL (6.4-8.2)
[2017-05-23] MEDS: inSUlin (REGULAR) HUMAN 1 UNIT/0.01 ML (CHARGE PER UNIT) SC SCH (05:45)
--- NOTE | 2017-05-23 06:32 | Pulmonary Progress Note ---
Subjective Time Seen by Provider: 06:31 Subjective/Events-last exam No complications noted. Exam Exam Vital Signs Date Time Temp Pulse Resp B/P (MAP) Pulse Ox O2 Delivery O2 Flow Rate FiO2 05/23/17 02:34 92 Nasal Cannula 4.50 05/23/17 00:00 97.5 105 18 147/81 (103) Nasal Cannula 4.00 05/22/17 20:30 Nasal Cannula 4.50 05/22/17 19:36 92 Nasal Cannula 4.50 05/22/17 16:36 96.8 102 20 127/85 (99) 99 Nasal Cannula 5.00 05/22/17 15:51 Nasal Cannula 4.50 05/22/17 10:10 95 Nasal Cannula 4.50 05/22/17 08:00 Nasal Cannula 4.00 05/22/17 08:00 96.9 93 20 133/64 (87) 97 Nasal Cannula 5.00 I & O 05/23/17 06:59 Intake Total 2047 ml Output Total 1375 ml Balance 672 ml General Appearance: No Apparent Distress, Thin HEENT: Normal ENT Inspection Neck: Full Range of Motion Respiratory: No Accessory Muscle Use, No Respiratory Distress, Decreased Breath Sounds Cardiovascular: Regular Rate, Rhythm, No Murmur Capillary Refill: Less Than 3 Seconds Gastrointestinal: non tender, soft Extremity: Other (Few's purpura right upper extremity with some decrease in swelling. 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
[2017-05-23 08:00] VITALS: BP 145/75
[2017-05-23] MEDS: ONDANSETRON 4 MG/2 ML (SDV) Z0FRAN IVP PRN (08:12)
--- NOTE | 2017-05-23 08:13 | Progress Note (SOAP) ---
Subjective Time Seen by Provider: 08:10 Subjective/Events-last exam Patient doing good today. Patient to be discharged today. Objective Exam Vital Signs Date Time Temp Pulse Resp B/P (MAP) Pulse Ox O2 Delivery O2 Flow Rate FiO2 05/23/17 02:34 92 Nasal Cannula 4.50 05/23/17 00:00 97.5 105 18 147/81 (103) Nasal Cannula 4.00 05/22/17 20:30 Nasal Cannula 4.50 05/22/17 19:36 92 Nasal Cannula 4.50 05/22/17 16:36 96.8 102 20 127/85 (99) 99 Nasal Cannula 5.00 05/22/17 15:51 Nasal Cannula 4.50 05/22/17 10:10 95 Nasal Cannula 4.50 I & O 05/23/17 07:00 Intake Total 2047 ml Output Total 1375 ml Balance 672 ml Capillary Refill : Less Than 3 SecondsLess Than 3 Seconds General Appearance: No Apparent Distress, Thin HEENT: Normal ENT Inspection Neck: Normal Inspection Respiratory: No Accessory Muscle Use, No Respiratory Distress, Decreased Breath Sounds Cardiovascular: Regular Rate, Rhythm, No Murmur Gastrointestinal: non tender, soft Results Lab Laboratory Tests 05/23/17 05:15 Laboratory Tests 05/22/17 11:12: Glucometer 115H 05/22/17 16:07: Glucometer 181H 05/22/17 20:19: Glucometer 288H 05/23/17 05:15: White Blood Count 10.6, Red Blood Count 2.95L, Hemoglobin 8.5L, Hematocrit 28L, Mean Corpuscular Volume 95, Mean Corpuscular Hemoglobin 29, Mean Corpuscular Hemoglobin Concent 30L, Red Cell Distribution Width 17.0H, Platelet Count 499H, Mean Platelet Volume 9.6, Neutrophils (%) (Auto) 83H, Lymphocytes (%) (Auto) 7L , Monocytes (%) (Auto) 8, Eosinophils (%) (Auto) 1, Basophils (%) (Auto) 1, Neutrophils # (Auto) 8.8H, Lymphocytes # (Auto) 0.8L, Monocytes # (Auto) 0.9, Eosinophils # (Auto) 0.1, Basophils # (Auto) 0.1, Sodium Level 138, Potassium Level 4.1, Chloride Level 91L, Carbon Dioxide Level 37H, Anion Gap 10, Blood Urea Nitrogen 11, Creatinine 0.52L, Estimat Glomerular Filtration Rate > 60, BUN /Creatinine Ratio 21, Glucose Level 118H, Calcium Level 8.5, Total Bilirubin 0.9 , Aspartate Amino Transf (AST/SGOT) 22, Alanine Aminotransferase (ALT/SGPT) 19, Alkaline Phosphatase 85, Total Protein 5.1L, Albumin 2.2L Microbiology 05/14/17 Blood Culture - Final, Complete No growth 05/14/17 MRSA Screen - Final, Complete MRSA not isolated Assessment/Plan Assessment/Plan Assess & Plan/Chief Complaint Sepsis with pneumonia. fall Acute blood loss. Hypotension resolved. COPD with acute exacerbation. Squamous cell lung cancer. Patient to have hip surgery today. Patient has hip fracture and shoulder fracture. . 05/17/17. 4. Sepsis with pneumonia. Acute blood loss. Hypertension. COPD. Swelling of cell lung cancer. Hip fracture had surgery yesterday. Right shoulder fracture. Hemoglobin and hematocrit stable. Chest x-ray little worse. . 05/20/17. Patient improving. Sepsis with pneumonia. Acute blood loss. Hypertension. COPD. Hip fracture. Shoulder fracture right. Lung cancer. Patient stable and improving. . 05/21/17. Sepsis with pneumonia. Acute blood loss. Hypertension history. COPD. Lung cancer. Patient to see child welfare social worker for placement. . 05/22/17. Sepsis with pneumonia. fall. Acute blood loss. COPD. Lung cancer area Fracture of right hip and right upper arm. Plan to discharge tomorrow to via [facility]. . 05/23/17. Sepsis with pneumonia. FALL Acute blood loss. Lung cancer squamous cell. Fractured right hip and right upper arm. Patient doing okay today. Plan to discharge Clinical Quality Measures DVT/VTE Risk/Contraindication: Risk Factor Score Per Nursin RFS Level Per Nursing on Admit: 4+=Very High Contraindications-Pharm: Other *list below* WEST MCCAULEY DO May 23, 2017 08:13
[2017-05-23] MEDS: meTOprolol TARTRATE 50 MG (LOPRESSOR) TAB PO SCH (08:14)
[2017-05-23] MEDS: FUROSEMIDE 20 MG (LASIX) TAB PO SCH (08:14)
[2017-05-23] MEDS: APIXABAN 2.5 MG (ELIQUIS) TABLET PO SCH (08:14)
[2017-05-23] MEDS: DICLOFENAC 1% GEL 100 GM (VOLTAREN) TUBE TOP SCH (08:15)
--- NOTE | 2017-05-23 08:16 | Discharge Inst-Skilled Nursing ---
Discharge Inst-Skilled NF Patient Instructions Patient Problems: Hip fracture. Shoulder fracture. Lung cancer. COPD Consult/Follow Up/Orders Follow Up Appt.: One week Skilled NF Admit to: Via [facility] Certification (SNF) I certify that SNF services are required to be given on an inpatient basis because of the above named patient's need for [facility] care on a continuing basis for the conditions(s) for which he/she was receiving inpatient hospital services prior to his/her transfer to the SNF. [facility] Order: [facility]-Evaluate & Treat, Physical Therapy-Evaluate & Treat Discharge Diet: No Restrictions New & Resume Previous Orders Sanju Mccauley May 23, 2017 08:15 SANJU MCCAULEY DO May 23, 2017 08:16
[2017-05-23 08:24] LABS: BASOPHILS # (AUTO) 0.1 10^3/uL (0.0-0.1); BASOPHILS % (AUTO) 1 % (0-10); EOSINOPHILS # (AUTO) 0.2 10^3/uL (0.0-0.3); EOSINOPHILS % (AUTO) 2 % (0-10); HEMATOCRIT 29 % (35-52); HEMOGLOBIN 8.6 G/DL (11.5-16.0); LYMPHOCYTES # (AUTO) 1.1 X 10^3 (1.0-4.0); LYMPHOCYTES % (AUTO) 10 % (12-44); MEAN CORPUSCULAR HEMOGLOBIN 28 PG (25-34); MEAN CORPUSCULAR HGB CONC 30 G/DL (32-36); MEAN CORPUSCULAR VOLUME 95 FL (80-99); MEAN PLATELET VOLUME 9.8 FL (7.4-10.4); MONOCYTES # (AUTO) 0.8 X 10^3 (0.0-1.0); MONOCYTES % (AUTO) 7 % (0-12); NEUTROPHILS # (AUTO) 8.9 X 10^3 (1.8-7.8); NEUTROPHILS % (AUTO) 81 % (42-75); PLATELET COUNT 520 10^3/uL (130-400); RED BLOOD COUNT 3.04 10^6/uL (4.35-5.85); RED CELL DISTRIBUTION WIDTH 17.3 % (10.0-14.5)
--- NOTE | 2017-05-23 09:00 | Physical Therapy Daily Note ---
PT Daily Note-Current Subjective Patient is on commode with c/o fatigue. Noted increase SOA. RN present. Pain Numeric Pain Scale: 5-Moderate Pain Location: Right Location Body Site: Hip Pain Description: Acute Mental Status Patient Orientation: Normal For Age Attachments: Oxygen Transfers Functional [place] Measure 0=Not Assessed/NA 4=Minimal Assistance 1=Total Assistance 5=Supervision or Setup 2=Maximal Assistance 6=Modified [place] 3=Moderate Assistance 7=Complete IndependenceIRFPAI Quality Coding Scale 6 Independent with activity with or without an assistive device 5 Patient requires set up or clean up by helper. Patient completes activity by themselves 4 Supervision or touching assist (CGA). [place] provide cues , steadying assist 3 The helper provides less than half the effort to complete the activity 2 The helper provides more than half the effort to complete the activity 1 Dependent. The helper does all the effort to complete an activity 7 Patient refused to complete or attempt activity 9 The patient did not perform the activity before the current illness or injury 88 Not attempted due to Medical conditions or safety concerns Transfers (B, C, W/C) (FIM): 2 Scootin Rollin Supine to/from Sit: 2 Sit to/from Stand: 2 Bed to/from Chair: 2 max assist with all mobility. PWB right LE with SPT commode to bed and sit to supine Weight Bearing Right Lower Extremity: Right Partial Weight Bearing (50%) Left Lower Extremity: Left Full Weight Bearing Assessment Patient repositioned in bed max assist with noted increase SOA with minimal activity. Patient to transfer to [place] on this date for continued care. PT Short Term Goals Short Term Goals Transfers (B,C,W/C) (FIM): 3 PT Internet Specialist Goals Half-Way Goals PT Half-Way Goals Time Frame: May 24, 2017 Transfers (B,C,W/C) (FIM): 3 PT Plan Treatment/Plan Treatment Plan: Discontinue PT Treatment Plan: Bed Mobility, Education, Functional Activity Alexi, Functional Strength, Gait, Safety, Therapeutic Exercise, Transfers Treatment Duration: May 24, 2017 Frequency: 11 times per week Estimated Hrs Per Day: .5 hour per day Patient and/or Family Agrees t: Yes Time/GCodes Time In: 851 Time Out: 859 Total Billed Treatment Time: 8 Total Billed Treatment 1 visit FA 8 min NAKITA EASTON PT May 23, 2017 09:00
[2017-05-23] MEDS: ASPIRIN E.C. 81 MG (ECOTRIN) TAB PO SCH (10:10)
[2017-05-23 10:30] VITALS: BP 140/75
== END 2017-05-23 10:30 | DRG 853 ==
LOC: ER 19:03 → ICU 22:20 → 4TH 05-18 15:08
PROVIDERS: ADMIT Family Medicine; ATTEND Family Medicine
PROC: 0QS606Z Reposition Right Upper Femur with Intramedullary Internal Fixation Device, Open Approach (ICD-10-PCS; principal; 2017-05-16 15:58)
DX: A41.9 Sepsis, unspecified organism (principal); J18.9 Pneumonia, unspecified organism; S72.141A Displaced intertrochanteric fracture of right femur, initial encounter for closed fracture; S42.211A Unspecified displaced fracture of surgical neck of right humerus, initial encounter for closed fracture; D62 Acute posthemorrhagic anemia; J44.0 Chronic obstructive pulmonary disease with (acute) lower respiratory infection; J44.1 Chronic obstructive pulmonary disease with (acute) exacerbation; N28.0 Ischemia and infarction of kidney; I27.23 Pulmonary hypertension due to lung diseases and hypoxia; I25.10 Atherosclerotic heart disease of native coronary artery without angina pectoris; I10 Essential (primary) hypertension; I48.0 Paroxysmal atrial fibrillation; E11.9 Type 2 diabetes mellitus without complications; J30.2 Other seasonal allergic rhinitis; I73.9 Peripheral vascular disease, unspecified; I07.1 Rheumatic tricuspid insufficiency; E03.9 Hypothyroidism, unspecified; F41.9 Anxiety disorder, unspecified; E78.5 Hyperlipidemia, unspecified; M19.91 Primary osteoarthritis, unspecified site; Z85.118 Personal history of other malignant neoplasm of bronchus and lung; Z87.891 Personal history of nicotine dependence; Z99.81 Dependence on supplemental oxygen; Z95.1 Presence of aortocoronary bypass graft; Z95.5 Presence of coronary angioplasty implant and graft; Z90.2 Acquired absence of lung [part of]; W18.09XA Striking against other object with subsequent fall, initial encounter; Y92.009 Unspecified place in unspecified non-institutional (private) residence as the place of occurrence of the external cause; Z95.820 Peripheral vascular angioplasty status with implants and grafts
CPT/HCPCS: 36415; 51702; 70450; 71045; 73060; 74018; 80048; 80053; 81000; 82550; 82962; 83036; 83605; 83735; 83880; 84100; 85007; 85014; 85018; 85025; 85027; 85610; 85730; 86850; 86900; 86901; 86920; 87040; 87081; 93005; 94640; 94664; 94760; 96361; 96365

== ENCOUNTER → 2017-09-03 | Outpatient (CLI) | payer MEDICARE, OTHER ==
[~2017-09-03] MED LIST changes: +FURO-125 PO; -METF500T4 PO; +METF500T5 PO
--- NOTE | 2017-09-03 15:47 | Diagnostic Imaging Report ---
INDICATION: Dyspnea and lung cancer. TIME OF EXAM: 02:49 p.m. Correlation is made with prior study from 05/30/2017. FINDINGS: Changes of median sternotomy and CABG are noted. Previously noted infiltrates in the perihilar and basilar regions have largely resolved. No new infiltrate is seen. There is no effusion identified. Postsurgical changes in the left upper lobe are again noted. There is no pneumothorax. IMPRESSION: Clearing of previously noted bilateral pulmonary infiltrates when compared with study from 05/30/2017. No new abnormality is identified. Dictated by: Dictated on workstation # [id number]
== END ==
LOC: RAD 14:01
PROVIDERS: ATTEND Nurse Practitioner Adult Health
DX: C34.31 Malignant neoplasm of lower lobe, right bronchus or lung (principal)
CPT/HCPCS: 71046

== ENCOUNTER 2017-10-18 08:48 | Outpatient (RCR) | payer MEDICARE, OTHER ==
[2017-09-03 13:27] LABS: BASOPHILS % (AUTO) 0 % (0-10); EOSINOPHILS # (AUTO) 0.3 10^3/uL (0.0-0.3); EOSINOPHILS % (AUTO) 4 % (0-10); HEMATOCRIT 42 % (35-52); HEMOGLOBIN 12.5 G/DL (11.5-16.0); LYMPHOCYTES # (AUTO) 0.7 X 10^3 (1.0-4.0); LYMPHOCYTES % (AUTO) 10 % (12-44); MEAN CORPUSCULAR HEMOGLOBIN 29 PG (25-34); MEAN CORPUSCULAR HGB CONC 30 G/DL (32-36); MEAN CORPUSCULAR VOLUME 96 FL (80-99); MEAN PLATELET VOLUME 9.6 FL (7.4-10.4); MONOCYTES # (AUTO) 0.6 X 10^3 (0.0-1.0); MONOCYTES % (AUTO) 8 % (0-12); NEUTROPHILS # (AUTO) 5.6 X 10^3 (1.8-7.8); NEUTROPHILS % (AUTO) 77 % (42-75); PLATELET COUNT 291 10^3/uL (130-400); RED BLOOD COUNT 4.32 10^6/uL (4.35-5.85); RED CELL DISTRIBUTION WIDTH 15.1 % (10.0-14.5); WHITE BLOOD COUNT 7.3 10^3/uL (4.3-11.0)
[2017-09-03 13:43] LABS: ALANINE AMINOTRANSFERASE 21 U/L (0-55); ALBUMIN 3.9 GM/DL (3.2-4.5); ALKALINE PHOSPHATASE 73 U/L (40-136); BILIRUBIN,TOTAL 0.4 MG/DL (0.1-1.0); BUN/CREATININE RATIO 14; CALCIUM 9.5 MG/DL (8.5-10.1); CARBON DIOXIDE 39 MMOL/L (21-32); CHLORIDE 90 MMOL/L (98-107); CREATININE SERUM 0.66 MG/DL (0.60-1.30); GFR ESTIMATED > 60; GLUCOSE 162 MG/DL (70-105); POTASSIUM 3.6 MMOL/L (3.6-5.0); SODIUM 141 MMOL/L (135-145); TOTAL PROTEIN 7.7 GM/DL (6.4-8.2)
[~2017-10-18 08:48] MED LIST changes: -CODE118S2 PO; +CODE118S4 PO
[2017-10-18 09:10] LABS: BASOPHILS % (AUTO) 0 % (0-10); EOSINOPHILS # (AUTO) 0.1 10^3/uL (0.0-0.3); EOSINOPHILS % (AUTO) 1 % (0-10); HEMATOCRIT 41 % (35-52); HEMOGLOBIN 12.8 G/DL (11.5-16.0); LYMPHOCYTES # (AUTO) 0.8 X 10^3 (1.0-4.0); LYMPHOCYTES % (AUTO) 13 % (12-44); MEAN CORPUSCULAR HEMOGLOBIN 29 PG (25-34); MEAN CORPUSCULAR HGB CONC 31 G/DL (32-36); MEAN CORPUSCULAR VOLUME 93 FL (80-99); MEAN PLATELET VOLUME 10.1 FL (7.4-10.4); MONOCYTES # (AUTO) 0.7 X 10^3 (0.0-1.0); MONOCYTES % (AUTO) 11 % (0-12); NEUTROPHILS # (AUTO) 4.7 X 10^3 (1.8-7.8); NEUTROPHILS % (AUTO) 75 % (42-75); PLATELET COUNT 270 10^3/uL (130-400); RED CELL DISTRIBUTION WIDTH 14.4 % (10.0-14.5); WHITE BLOOD COUNT 6.3 10^3/uL (4.3-11.0)
[2017-10-18 09:39] LABS: ALANINE AMINOTRANSFERASE 14 U/L (0-55); ALBUMIN 4.1 GM/DL (3.2-4.5); ALKALINE PHOSPHATASE 81 U/L (40-136); BILIRUBIN,TOTAL 0.6 MG/DL (0.1-1.0); BUN/CREATININE RATIO 17; CARBON DIOXIDE 39 MMOL/L (21-32); CHLORIDE 85 MMOL/L (98-107); CREATININE SERUM 0.72 MG/DL (0.60-1.30); GFR ESTIMATED > 60; GLUCOSE 175 MG/DL (70-105); SODIUM 138 MMOL/L (135-145); TOTAL PROTEIN 7.8 GM/DL (6.4-8.2)
[2017-10-18 09:46] LABS: POTASSIUM 2.5 MMOL/L (3.6-5.0)
[2017-10-31 13:45] LABS: BASOPHILS % (AUTO) 0 % (0-10); EOSINOPHILS # (AUTO) 0.3 10^3/uL (0.0-0.3); EOSINOPHILS % (AUTO) 4 % (0-10); HEMATOCRIT 41 % (35-52); LYMPHOCYTES # (AUTO) 0.8 X 10^3 (1.0-4.0); LYMPHOCYTES % (AUTO) 14 % (12-44); MEAN CORPUSCULAR HEMOGLOBIN 30 PG (25-34); MEAN CORPUSCULAR HGB CONC 31 G/DL (32-36); MEAN CORPUSCULAR VOLUME 97 FL (80-99); MEAN PLATELET VOLUME 9.6 FL (7.4-10.4); MONOCYTES # (AUTO) 0.5 X 10^3 (0.0-1.0); MONOCYTES % (AUTO) 9 % (0-12); NEUTROPHILS # (AUTO) 4.4 X 10^3 (1.8-7.8); NEUTROPHILS % (AUTO) 73 % (42-75); PLATELET COUNT 345 10^3/uL (130-400); RED BLOOD COUNT 4.28 10^6/uL (4.35-5.85); RED CELL DISTRIBUTION WIDTH 14.7 % (10.0-14.5)
[2017-10-31 14:01] LABS: ALANINE AMINOTRANSFERASE 13 U/L (0-55); ALBUMIN 3.6 GM/DL (3.2-4.5); ALKALINE PHOSPHATASE 67 U/L (40-136); BILIRUBIN,TOTAL 0.3 MG/DL (0.1-1.0); BUN/CREATININE RATIO 13; CALCIUM 9.3 MG/DL (8.5-10.1); CARBON DIOXIDE 38 MMOL/L (21-32); CHLORIDE 96 MMOL/L (98-107); CREATININE SERUM 0.85 MG/DL (0.60-1.30); GFR ESTIMATED > 60; GLUCOSE 124 MG/DL (70-105); POTASSIUM 4.3 MMOL/L (3.6-5.0); SODIUM 142 MMOL/L (135-145)
== END 2017-10-31 13:18 | disposition home or self-care (01) ==
LOC: ONC 08:48
PROVIDERS: ATTEND Internal Medicine Hematology & Oncology
DX: C34.31 Malignant neoplasm of lower lobe, right bronchus or lung (principal); M80.08XD Age-related osteoporosis with current pathological fracture, vertebra(e), subsequent encounter for fracture with routine healing; I25.10 Atherosclerotic heart disease of native coronary artery without angina pectoris; I10 Essential (primary) hypertension; E78.5 Hyperlipidemia, unspecified; J43.9 Emphysema, unspecified; I73.9 Peripheral vascular disease, unspecified; Z95.1 Presence of aortocoronary bypass graft; Z92.21 Personal history of antineoplastic chemotherapy; Z92.3 Personal history of irradiation; Z79.82 Long term (current) use of aspirin; Z79.899 Other long term (current) drug therapy
CPT/HCPCS: 36415; 80053; 85025

== ENCOUNTER → 2017-10-21 | Outpatient (CLI) | payer MEDICARE, OTHER ==
[~2017-10-21] MED LIST changes: +BARIUM SUSPENSION 2.1% (VANILLA SILQ) 450 ML PO ONE; +CATHETER FLUSH 10 ML SYR IV PRN; +IOHEXOL 350 MG/ML 100 ML (OMNIPAQUE 350) VIAL IV ONE; +NS 100 ML (IVPB) BAG IV ONE
--- NOTE | 2017-10-21 13:52 | Diagnostic Imaging Report ---
PROCEDURE: CT chest and abdomen with contrast. TECHNIQUE: Multiple contiguous axial images were obtained through the chest and abdomen after the administration of intravenous contrast. INDICATION: Lung cancer. COMPARISON: 05/01/2017. FINDINGS: CHEST: There has been marked improvement in the previously dense airless consolidation throughout the right lower lobe with some mild residual opacity which may be scarring or near complete resolution of the previous inflammatory process. There are no findings of an underlying soft tissue density mass at that level. There is some partial atelectasis of the dependent portion of the superior segment of the right lower lobe. Some left greater than right apical pleural/parenchymal scarring and underlying centrilobular emphysema are chronic. No hilar or mediastinal lymphadenopathy. Sagittal reconstruction views reveal no significant change in multiple mid to lower thoracic and upper lumbar osteoporotic compression fractures. No acute bony injury. ABDOMEN/PELVIS: The liver is stable and negative. There is chronic nonobstructing left renal atrophy with no adrenal mass. There is no mesenteric or retroperitoneal lymphadenopathy. There is no ascites or fluid collection. No acute bony abnormality. No mesenteric or retroperitoneal lymphadenopathy. There is aortoiliac atherosclerotic vascular disease without aneurysm or rupture. IMPRESSION: CHEST: Near complete resolution of the previous severely consolidating right lower lobe pneumonia. There is some partial atelectasis and likely an element of scarring at the site of greatest consolidation on the prior exam. No soft tissue density, lung mass, or adenopathy. Underlying COPD is chronic. Stable thoracolumbar compression fractures. ABDOMEN/PELVIS: No findings of abdominal metastasis. Nonaneurysmal atherosclerosis. Nonobstructive left renal atrophy. Nonobstructing constipation. Dictated by: Dictated on workstation # [id number]
== END ==
LOC: RAD 11:22
PROVIDERS: ATTEND Nurse Practitioner Adult Health
DX: C34.31 Malignant neoplasm of lower lobe, right bronchus or lung (principal); J18.1 Lobar pneumonia, unspecified organism; S32.019A Unspecified fracture of first lumbar vertebra, initial encounter for closed fracture; S22.089A Unspecified fracture of T11-T12 vertebra, initial encounter for closed fracture; I70.90 Unspecified atherosclerosis; N26.1 Atrophy of kidney (terminal); K59.09 Other constipation
CPT/HCPCS: 71260; 74160

== ENCOUNTER → 2017-10-21 | Outpatient (CLI) | payer MEDICARE, OTHER ==
[~2017-10-21] MED LIST changes: -BARIUM SUSPENSION 2.1% (VANILLA SILQ) 450 ML PO ONE; -CATHETER FLUSH 10 ML SYR IV PRN; -IOHEXOL 350 MG/ML 100 ML (OMNIPAQUE 350) VIAL IV ONE; -NS 100 ML (IVPB) BAG IV ONE
[2017-10-21 12:13] LABS: BUN/CREATININE RATIO 20; CALCIUM 9.8 MG/DL (8.5-10.1); CARBON DIOXIDE 43 MMOL/L (21-32); CHLORIDE 90 MMOL/L (98-107); CREATININE SERUM 0.74 MG/DL (0.60-1.30); GFR ESTIMATED > 60; GLUCOSE 157 MG/DL (70-105); POTASSIUM 3.6 MMOL/L (3.6-5.0); SODIUM 142 MMOL/L (135-145)
== END ==
LOC: LAB 11:25
PROVIDERS: ATTEND Family Medicine
DX: E87.6 Hypokalemia (principal); R79.81 Abnormal blood-gas level
CPT/HCPCS: 36415; 80048

== ENCOUNTER 2017-10-31 13:21 | Outpatient (RCR) | payer MEDICARE, OTHER ==
[~2017-10-31 13:21] MED LIST changes: +METF-397 PO; -METF500T5 PO
[2017-12-17] MEDS ORDERED: INSU100V16 SQ (11:53)
[2018-01-10] MEDS ORDERED: APIX5TAB PO (13:08)
== END 2017-11-05 | disposition home or self-care (01) ==
LOC: ONC 13:21
PROVIDERS: ATTEND Internal Medicine Hematology & Oncology
DX: C34.31 Malignant neoplasm of lower lobe, right bronchus or lung (principal); M80.08XD Age-related osteoporosis with current pathological fracture, vertebra(e), subsequent encounter for fracture with routine healing; I25.10 Atherosclerotic heart disease of native coronary artery without angina pectoris; I10 Essential (primary) hypertension; E78.5 Hyperlipidemia, unspecified; J43.9 Emphysema, unspecified; I73.9 Peripheral vascular disease, unspecified; Z95.1 Presence of aortocoronary bypass graft; Z92.21 Personal history of antineoplastic chemotherapy; Z92.3 Personal history of irradiation; Z79.82 Long term (current) use of aspirin; Z79.899 Other long term (current) drug therapy
CPT/HCPCS: 99213

== ENCOUNTER 2017-12-09 02:17 | Inpatient (IN) | payer MEDICARE, OTHER ==
[~2017-12-09] VITALS: Ht 154.9 cm; Wt 46.8 kg
[2017-12-09] MEDS ORDERED: methylPREDNISolone 125 MG (Solu-MEDROL) VIAL ONE (02:27)
[2017-12-09] MEDS ORDERED: DEXAMETHASONE 4 MG/ML SDV (DECADRON) IH ONE (02:30)
[2017-12-09] MEDS ORDERED: RT-ALBUTEROL/IPRATROPIUM 3 ML (DUONEB) VIAL INH ONE (02:30)
[2017-12-09] MEDS ORDERED: methylPREDNISolone 125 MG (Solu-MEDROL) VIAL IVP ONE (02:30)
[2017-12-09] MEDS ORDERED: RT-ALBUTEROL/IPRATROPIUM 3 ML (DUONEB) VIAL ONE (02:31)
[2017-12-09] MEDS ORDERED: DEXAMETHASONE 4 MG/ML SDV (DECADRON) ONE (02:31)
[2017-12-09 02:38] LABS: BASOPHILS % (AUTO) 0 % (0-10); EOSINOPHILS # (AUTO) 0.1 10^3/uL (0.0-0.3); EOSINOPHILS % (AUTO) 2 % (0-10); HEMATOCRIT 41 % (35-52); HEMOGLOBIN 12.7 G/DL (11.5-16.0); LYMPHOCYTES # (AUTO) 0.7 X 10^3 (1.0-4.0); LYMPHOCYTES % (AUTO) 10 % (12-44); MEAN CORPUSCULAR HEMOGLOBIN 31 PG (25-34); MEAN CORPUSCULAR HGB CONC 31 G/DL (32-36); MEAN CORPUSCULAR VOLUME 98 FL (80-99); MEAN PLATELET VOLUME 10.2 FL (7.4-10.4); MONOCYTES # (AUTO) 0.8 X 10^3 (0.0-1.0); MONOCYTES % (AUTO) 11 % (0-12); NEUTROPHILS # (AUTO) 5.3 X 10^3 (1.8-7.8); NEUTROPHILS % (AUTO) 76 % (42-75); PLATELET COUNT 242 10^3/uL (130-400); RED BLOOD COUNT 4.16 10^6/uL (4.35-5.85); RED CELL DISTRIBUTION WIDTH 15.1 % (10.0-14.5); WHITE BLOOD COUNT 6.9 10^3/uL (4.3-11.0)
[2017-12-09] MEDS ORDERED: RT-ALBUTEROL SULF 2.5 MG/3 ML PRE-MIX VIAL ONE (02:48)
[2017-12-09 02:49] LABS: PROTHROMBIN TIME PATIENT 13.6 SEC (12.2-14.7)
[2017-12-09 03:02] LABS: ALANINE AMINOTRANSFERASE 24 U/L (0-55); ALBUMIN 4.2 GM/DL (3.2-4.5); ALKALINE PHOSPHATASE 74 U/L (40-136); BILIRUBIN,TOTAL 0.4 MG/DL (0.1-1.0); BUN/CREATININE RATIO 22; CALCIUM 9.9 MG/DL (8.5-10.1); CARBON DIOXIDE 40 MMOL/L (21-32); CHLORIDE 86 MMOL/L (98-107); CREATININE SERUM 0.73 MG/DL (0.60-1.30); GFR ESTIMATED > 60; GLUCOSE 161 MG/DL (70-105); MAGNESIUM 1.9 MG/DL (1.8-2.4); POTASSIUM 2.8 MMOL/L (3.6-5.0); SODIUM 142 MMOL/L (135-145); TOTAL PROTEIN 7.7 GM/DL (6.4-8.2)
[2017-12-09 03:33] LABS: ABG OXYGEN SATURATION 96 % (94-100); ABG PH 7.35 (7.37-7.43); ABG PO2 80 MMHG (79-93); ALLENS TEST YES-POS
[2017-12-09 03:34] LABS: INSPIRED O2 3L; PATIENT TEMP 97.4; VENTILATOR NO
[2017-12-09 03:35] LABS: ABG PCO2 91 MMHG (35-45)
[2017-12-09 03:47] VITALS: BP 155/86
--- NOTE | 2017-12-09 05:35 | ED Respiratory ---
General Chief Complaint: Respiratory Problems Stated Complaint: COPD EXACERBATION Nursing Triage Note: Patient presented to the ER tonight via EMS secondary to complaints of shortness of breath. EMS advise that the patient was on humidified 02 upon thier arrival to the residential facility. The patient advised she has been short of breath x 3 days. Source: patient History of Present Illness Date Seen by Provider: Dec 09, 2017 Time Seen by Provider: 02:30 Initial Comments PT ARRIVES VIA EMS FROM [facility] PT STATES SHE HAS BEEN SHORT OF BREATH FOR THE LAST 3 DAYS PT HAS COPD AND IS O2 DEPENDENT. PT MOVED FROM [facility] TO [facility] 3 DAYS AGO, AND HAS A NEW OXYGEN MACHINE THERE PT STATES SINCE MOVING THERE, SHE HAS FELT LIKE SHE IS NOT GETTING ANY OXYGEN- SHE STATES STAFF THAT HER MACHINE WAS WORKING, BUT PT IS ADAMANT THAT IT DID NOT FEEL LIKE IT WAS WORKING RIGHT. NO CHEST PAIN NO SWELLING IN LEGS/ FEET OR PAIN IN CALVES NO FEVER /SWEATS /CHILLS NO INCREASE IN CHRONIC COUGH NO PALPITATIONS LAST NEB TREATMENT WAS 4 HOURS AGO PCP: DR MCCAULEY Allergies and Home Medications Allergies Coded Allergies: Penicillins (Verified Allergy, Severe, ANAPHYLAXIS, 09/04/16) hydrochlorothiazide (Verified Allergy, Intermediate, RASH, 01/29/17) penicillin G (Verified Allergy, Unknown, 09/04/16) Home Medications Acetaminophen with Codeine 1 Each Tablet, 1 TAB PO HS, (Reported) Albuterol Sulfate 2.5 Mg/3 Ml Vial.neb, 2.5 MG NEB Q4H PRN for SHORTNESS OF BREATH, (Reported) Alendronate Sodium 70 Mg Tablet, 70 MG PO Sa, (Reported) Apixaban 2.5 Mg Tablet, 2.5 MG PO BID, (Reported) Aspirin 81 Mg Tablet.dr, 81 MG PO DAILY, (Reported) Atorvastatin Calcium 40 Mg Tablet, 40 MG PO HS, (Reported) Calcium Carbonate 1,177 Mg Tab.chew, 1,177 MG PO Q6H PRN for INDIGESTION, ( Reported) Calcium Carbonate/Vitamin D3 1 Each Tablet, 1 TAB PO DAILY, (Reported) Cetirizine HCl 10 Mg Tablet, 10 MG PO HS, (Reported) Diltiazem HCl 240 Mg Cap.er.24h, 240 MG PO DAILY, (Reported) Furosemide 20 Mg Tablet, 60 MG PO DAILY Prescribed by: MOIZ QUINTANA on 05/31/17 0902 Hydromorphone HCl 2 Mg Tablet, 2 MG PO Q4H PRN for PAIN-SEVERE, (Reported) Levothyroxine Sodium 50 Mcg Tablet, 50 MCG PO HS, (Reported) Metformin HCl 500 Mg Tablet, 500 MG PO BID WITH MEALS, (Reported) Metoprolol Tartrate 50 Mg Tablet, 50 MG PO BID, (Reported) Multivits,Stress Formula 1 Each Tablet, 1 TAB PO DAILY, (Reported) Nitroglycerin 0.4 Mg Tab.subl, 0.4 MG SL UD PRN for CHEST PAIN, (Reported) Pantoprazole Sodium 40 Mg Tablet.dr, 40 MG PO DAILY, (Reported) Promethazine HCl/Codeine 118 Ml Syrup, 10 ML PO TID PRN for COUGH, (Reported) Tiotropium Irvona 4 Gm Mist.inhal, 2 PUFF IH DAILY, (Reported) Ubidecarenone 200 Mg Capsule, 200 MG PO HS, (Reported) Patient Home Medication List Home Medication List Reviewed: Yes Review of Systems Review of Systems Constitutional: no symptoms reported; No chills, No diaphoresis, No fever EENTM: no symptoms reported Respiratory: see HPI, cough, dyspnea on exertion, short of breath, wheezing Cardiovascular: no symptoms reported; No chest pain, No edema, No palpitations , No syncope Gastrointestinal: no symptoms reported Genitourinary: no symptoms reported Musculoskeletal: no symptoms reported Skin: no symptoms reported Psychiatric/Neurological: No Symptoms Reported Hematologic/Lymphatic: No Symptoms Reported Immunological/Allergic: no symptoms reported Past H[place]lim[place]-Anfwlm-Gqvfdk Hx Patient Social History Alcohol Use: Denies Use Recreational Drug Use: No Smoking Status: Former Smoker Type Used: Cigarettes Former Smoker, Quit: Jan 28, 2013 Recent Foreign Travel: No Contact w/Someone Who Travel: No Recent Infectious Disease Expo: No Recent Hopitalizations: No Physical Abuse: No Sexual Abuse: No Immunizations Up To Date Tetanus Booster (TDap): Unknown PED Vaccines UTD: Yes Date of Pneumonia Vaccine: Jan 07, 2016 Date of Influenza Vaccine: Jan 06, 2017 Seasonal Allergies Seasonal Allergies: Yes Past Medical History Surgeries: Yes (CARDIAC CATH WITH STENTS AND CABG 2012; MULTIPLE BILATERAL LOWER EXTREMITY STENTS; RIGHT LOBECTOMY FOR CANCER; RIGHT HIP FX / ORIF) Cardiac, CABG, Coronary Stent, Lobectomy, Orthopedic, Vascular Surgery Respiratory: Yes (O2 DEPENDENT; PULMONARY HTN; LUNG CANCER--S/P SURGERY, RADIATION AND CHEMO 2017) Pneumonia, Chronic Bronchitis, COPD Currently Using CPAP: No Currently Using BIPAP: No Cardiac: Yes (CABG + STENTS; CHF;ASVD--MULTIPLE BILATERAL LOWER EXTREMITY STENTS; COMPLETE OCCLUSION OF LEFT RENAL ARTERY; MILD CAROTID DISEASE) Atrial Fibrillation, Coronary Artery Disease, High Cholesterol, Hypertension, Peripheral Vascular Neurological: No : No Reproductive Disorders: Yes (26 YRS. 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 FLUME TENDER History: Menopausal Sexually Transmitted Disease: No HIV/AIDS: No Genitourinary: No Gastrointestinal: Yes ("BUTTERFLY" HERNIA) Abdominal Hernia, Gastroesophageal Reflux Musculoskeletal: Yes (RIGHT HIP FX/ORIF) Osteoporosis, Arthritis, Fractures Endocrine: Yes Hypothyroidsim, Diabetes, Non-Insulin dep HEENT: Yes Cataract Loss of Vision: Denies Hearing Impairment: Denies Cancer: Yes Lung Did You Recieve Any Treatments: Yes (2016) What Type of Treatment Did You: Chemotherapy, Radiation, Surgical Intervention Psychosocial: Yes Anxiety Nursing Suicide Risk Score: 0 Integumentary: No Blood Disorders: No Adverse Reaction/Blood Tranf: No Family Medical History Chest pain 09 SISTER Congestive heart failure G-MA Family history: Cardiovascular disease 03 FATHER (68) 09 SISTER Family history: Hypertension 03 FATHER 09 SISTER G-MA Stroke No Pertinent Family Hx Physical Exam Vital Signs - First Documented 12/09/17 02:27 Temp 97.4 Pulse 85 Resp 20 B/P (MAP) 163/106 (125) Pulse Ox 98 O2 Delivery Nasal Cannula O2 Flow Rate 3.00 FiO2 100 Capillary Refill : Less Than 3 Seconds Height: 5'1.00" Weight: 101lbs. 0.4oz. [id number]; 19.1 BMI Method:Estimated General Appearance: mild distress (MILDLY DYSPNEIC BUT ABLE TO TALK IN FULL SENTENCES), thin, other (MILDLY LETHARGIC) Neck: normal inspection Respiratory: accessory muscle use, wheezing (DIFFUSE EXPIRATORY WHEEZING BILATERALLY) Cardiovascular: regular rate, rhythm, no JVD, no murmur Gastrointestinal: non tender, soft Extremities: pedal edema (TRACE BILATERALLY) Neurologic/Psychiatric: technical project coordinator II-XII nml as tested, no motor/sensory deficits, alert, oriented x 3 Skin: normal color, warm/dry Progress/Results/Core Measures Suspected Sepsis Recent Fever Within 48 Hours: No Infection Criteria Present: None New/Unexplained Altered Menta: No Sepsis Screen: No Definite Risk SIRS Temperature:97.4 Pulse: 103 Respiratory Rate: 16 Laboratory Tests 12/09/17 02:27: White Blood Count 6.9 Blood Pressure 155 /96 Mean: 125 Laboratory Tests 12/09/17 02:27: Creatinine 0.73, INR Comment 1.0, Platelet Count 242, Total Bilirubin 0.4 Results/Orders Lab Results Laboratory Tests Test 12/09/17 02:27 12/09/17 03:21 Range/Units White Blood Count 6.9 4.3-11.0 10^3/uL Red Blood Count 4.16 L 4.35-5.85 10^6/uL Hemoglobin 12.7 11.5-16.0 G/DL Hematocrit 41 35-52 % Mean Corpuscular Volume 98 80-99 FL Mean Corpuscular Hemoglobin 31 25-34 PG Mean Corpuscular Hemoglobin Concent 31 L 32-36 G/DL Red Cell Distribution Width 15.1 H 10.0-14.5 % Platelet Count 242 130-400 10^3/uL Mean Platelet Volume 10.2 7.4-10.4 FL Neutrophils (%) (Auto) 76 H 42-75 % Lymphocytes (%) (Auto) 10 L 12-44 % Monocytes (%) (Auto) 11 0-12 % Eosinophils (%) (Auto) 2 0-10 % Basophils (%) (Auto) 0 0-10 % Neutrophils # (Auto) 5.3 1.8-7.8 X 10^3 Lymphocytes # (Auto) 0.7 L 1.0-4.0 X 10^3 Monocytes # (Auto) 0.8 0.0-1.0 X 10^3 Eosinophils # (Auto) 0.1 0.0-0.3 10^3/uL Basophils # (Auto) 0.0 0.0-0.1 10^3/uL Prothrombin Time 13.6 12.2-14.7 SEC INR Comment 1.0 0.8-1.4 Activated Partial Thromboplast Time 30 24-35 SEC Sodium Level 142 135-145 MMOL/L Potassium Level 2.8 L 3.6-5.0 MMOL/L Chloride Level 86 L 98-107 MMOL/L Carbon Dioxide Level 40 H 21-32 MMOL/L Anion Gap 16 H 5-14 MMOL/L Blood Urea Nitrogen 16 7-18 MG/DL Creatinine 0.73 0.60-1.30 MG/DL Estimat Glomerular Filtration Rate > 60 BUN/Creatinine Ratio 22 Glucose Level 161 H 70-105 MG/DL Calcium Level 9.9 8.5-10.1 MG/DL Corrected Calcium 9.7 8.5-10.1 MG/DL Magnesium Level 1.9 1.8-2.4 MG/DL Total Bilirubin 0.4 0.1-1.0 MG/DL Aspartate Amino Transf (AST/SGOT) 22 5-34 U/L Alanine Aminotransferase (ALT/SGPT) 24 0-55 U/L Alkaline Phosphatase 74 40-136 U/L Troponin I < 0.30 <0.30 NG/ML B-Type Natriuretic Peptide 305.0 H <100.0 PG/ML Total Protein 7.7 6.4-8.2 GM/DL Albumin 4.2 3.2-4.5 GM/DL Blood Gas Puncture Site R RAD Blood Gas Patient Temperature 97.4 Arterial Blood pH 7.35 L 7.37-7.43 Arterial Blood Partial Pressure CO2 91 *H 35-45 MMHG Arterial Blood Partial Pressure O2 80 79-93 MMHG Arterial Blood HCO3 49 *H 23-27 MMOL/L Arterial Blood Total CO2 52.0 H 21.0-31.0 MMOL/L Arterial Blood Oxygen Saturation 96 94-100 % Arterial Blood Base Excess 22.0 H -2.5-2.5 MMOL/L Bruce Test YES-POS Blood Gas Ventilator Setting NO Blood Gas Inspired Oxygen 3L My Orders Orders - JUAREZ CARRION DO Methylprednisolone Sod Succ (Solu-Medrol (12/09/17 02:27) Saline Lock/Iv-Start (12/09/17 02:30) Ekg Tracing (12/09/17 02:30) O2 (12/09/17 02:30) Monitor-Rhythm Ecg Trace Only (12/09/17 02:30) BNP (12/09/17 02:30) Cbc With Automated Diff (12/09/17 02:30) Comprehensive Metabolic Panel (12/09/17 02:30) Magnesium (12/09/17 02:30) Protime With Inr (12/09/17 02:30) Partial Thromboplastin Time (12/09/17 02:30) Troponin I (12/09/17 02:30) Chest 1 View, Ap/Pa Only (12/09/17 02:30) Albuterol/Ipra Inhalation Soln (Duoneb I (12/09/17 02:30) Dexamethasone Injection (Decadron Inject (12/09/17 02:30) Rt Request For Service (12/09/17 02:30) Svn Small Volume Nebulizer (12/09/17 02:30) Methylprednisolone Sod Succ (Solu-Medrol (12/09/17 02:30) Dexamethasone Injection (Decadron Inject (12/09/17 02:31) Albuterol/Ipra Inhalation Soln (Duoneb I (12/09/17 02:31) Albuterol Pre-Mix Nebs (Rt) (Proventil (12/09/17 02:48) Arterial Blood Gas (12/09/17 03:12) Arterial Blood Draw (12/09/17 03:21) Medications Given in ED Current Medications Medications Dose Ordered Sig/Imelda Route Start Time Stop Time Status Last Admin Dose Admin Albuterol Sulfate 2.5 mg STK-MED ONCE .ROUTE 12/09/17 02:48 12/09/17 02:51 DC 12/09/17 02:54 2.5 MG Albuterol/ Ipratropium 3 ml ONCE ONCE INH 12/09/17 02:30 12/09/17 02:34 DC 12/09/17 02:41 3 ML Albuterol/ Ipratropium 3 ml STK-MED ONCE .ROUTE 12/09/17 02:31 12/09/17 02:36 DC 12/09/17 02:54 3 ML Dexamethasone Sodium Phosphate 20 mg ONCE ONCE IH 12/09/17 02:30 12/09/17 02:34 DC 12/09/17 02:41 20 MG Vital Signs/I&O 12/09/17 12/09/17 12/09/17 12/09/17 02:27 02:27 02:42 02:54 Temp 97.4 Pulse 85 Resp 20 B/P (MAP) 163/106 (125) Pulse Ox 98 97 99 99 O2 Delivery Nasal Cannula Nasal Cannula Nasal Cannula Nasal Cannula O2 Flow Rate 3.00 3.00 4.00 4.00 FiO2 100 Capillary Refill : Less Than 3 Seconds Blood Pressure Mean: 125 Progress Note : Progress Note PT GIVEN HOUR LONG NEB TREATMENT WITH IMPROVEMENT IN LUNG SOUNDS, BUT STILL WITH MILD RESIDUAL EXPIRATORY WHEEZING. PT PLACED ON BIPAP ON RETURN OF ABG RESULTS. O2 SATS REMAINED IN HIGH 90'S PT STATES SHE FEELS MUCH BETTER ECG Initial ECG Impression Date: Dec 09, 2017 Initial ECG Impression Time: 03:05 Initial ECG Rate: 86 Initial ECG Rhythm: Normal Sinus Initial ECG Impression: Nonspecific Changes Initial ECG Comparisson: Unchanged Diagnostic Imaging Comments CXR--CHRONIC LUNG CHANGES, NO ACUTE PROCESS, PENDING RADIOLOGIST REVIEW Reviewed: Reviewed by Me Departure Communication (Admissions) [id number]--SPOKE WITH DR. ORJAS, FP HOSPITALIST GENERAL UTILITY WORKER. ACCEPTS PT FOR ADMIT. Impression Primary Impression: Acute exacerbation of chronic obstructive pulmonary disease (COPD) Additional Impressions: Acute respiratory failure with hypoxia and hypercarbia Hx of cancer of lung Hx of coronary artery disease Disposition: 09 ADMITTED INPATIENT Condition: Improved Departure-Patient Inst. Referrals: WEST MCCAULEY DO (PCP) Primary Care Physician JUAREZ CARRION DO Dec 09, 2017 05:35
[2017-12-09 05:51] LABS: BASOPHILS % (AUTO) 0 % (0-10); EOSINOPHILS % (AUTO) 0 % (0-10); HEMATOCRIT 39 % (35-52); HEMOGLOBIN 12.1 G/DL (11.5-16.0); LYMPHOCYTES # (AUTO) 0.4 X 10^3 (1.0-4.0); LYMPHOCYTES % (AUTO) 4 % (12-44); MEAN CORPUSCULAR HEMOGLOBIN 31 PG (25-34); MEAN CORPUSCULAR HGB CONC 31 G/DL (32-36); MEAN CORPUSCULAR VOLUME 98 FL (80-99); MEAN PLATELET VOLUME 10.2 FL (7.4-10.4); MONOCYTES # (AUTO) 0.2 X 10^3 (0.0-1.0); MONOCYTES % (AUTO) 2 % (0-12); NEUTROPHILS # (AUTO) 8.4 X 10^3 (1.8-7.8); NEUTROPHILS % (AUTO) 94 % (42-75); PLATELET COUNT 241 10^3/uL (130-400); RED BLOOD COUNT 3.97 10^6/uL (4.35-5.85)
[2017-12-09 06:09] LABS: BAND NEUTROPHILS 2 %; BASOPHILS % (MANUAL) 0 %; EOSINOPHILS % (MANUAL) 0 %; HYPOCHROMASIA SLIGHT; LYMPHOCYTES % (MANUAL) 5 %; MONOCYTES % (MANUAL) 1 %; NEUTROPHILS % (MANUAL) 92 %
[2017-12-09 06:10] LABS: ANISOCYTOSIS SLIGHT; ELLIPT/OVALOCYTES SLIGHT
[2017-12-09 06:15] LABS: ALANINE AMINOTRANSFERASE 23 U/L (0-55); ALBUMIN 3.9 GM/DL (3.2-4.5); ALKALINE PHOSPHATASE 69 U/L (40-136); BILIRUBIN,TOTAL 0.4 MG/DL (0.1-1.0); BUN/CREATININE RATIO 21; CALCIUM 9.6 MG/DL (8.5-10.1); CARBON DIOXIDE 39 MMOL/L (21-32); CHLORIDE 87 MMOL/L (98-107); CREATININE SERUM 0.73 MG/DL (0.60-1.30); GFR ESTIMATED > 60; GLUCOSE 242 MG/DL (70-105); POTASSIUM 2.7 MMOL/L (3.6-5.0); SODIUM 142 MMOL/L (135-145)
--- NOTE | 2017-12-09 06:56 | Diagnostic Imaging Report ---
EXAMINATION: Chest radiograph, portable AP view. DATE: December 09, 2017 at 0236 hours. INDICATION: 72-year-old female, shortness of breath. COMPARISON: December 02, 2017. FINDINGS: There is a redemonstrated fracture deformity of the right proximal humerus. There are median sternotomy wires. Heart size appears unchanged. There is streaky mass like prominence in the right hilar region. This appears more pronounced since comparison exam. There is a nodular opacity projecting over the left lower lobe which is also in a position which could relate to nipple shadow. It is difficult to definitively evaluate. There is also a more nodular opacity overlying a left-sided rib measuring 1.4 cm in size as well. There are sutures overlying the left upper lobe. There is a chronic appearing fracture deformity of the left proximal humerus. IMPRESSION: 1. Streaky masslike prominence in the right hilar region which is a change in appearance since December 02, 2017. Differential diagnostic considerations would include neoplastic etiology versus other alveolar consolidative process. Dedicated CT chest with intravenous contrast may be helpful for further assessment. 2. 1.3 cm nodular opacity overlying the left lower lobe and projecting in the expected location for a nipple shadow. This is not able to be well distinguished. Additional nodular opacity which also projects over the left lower lobe and a left lower rib which appears new since comparison exam. This is also recommended to be further evaluated with CT chest with contrast. 3. Redemonstrated chronic fracture deformities of the right and left proximal humeri. Dictated by: Dictated on workstation # [id number]
[2017-12-09 08:00] VITALS: BP 124/60
[2017-12-09] MEDS ORDERED: CALC-823 PO (09:23)
--- NOTE | 2017-12-09 09:24 | Diagnostic Imaging Report ---
EXAMINATION: Chest radiograph, portable AP view. DATE: December 09, 2017 at 0854 hours. INDICATION: 72-year-old female, history of chronic obstructive pulmonary disease. COMPARISON: December 09, 2017 at 0236 hrs. FINDINGS: Stable overall appearance of the cardiomediastinal silhouette. There are nodular opacities overlying the left midlung measuring up to 16 and 12 mm in size which are present previously on the most recent comparison exam. There are sutures overlying the left lung. There are nonspecific right perihilar opacities which are essentially unchanged. There is no identified pneumothorax. There is no large pleural effusion. There are redemonstrated chronic proximal humeri deformities. IMPRESSION: 1. Redemonstrated and essentially unchanged nodular opacities projecting over the left midlung since most recent comparison exam. 2. Grossly unchanged nonspecific right perihilar airspace consolidation. Dictated by: Dictated on workstation # [id number]
[2017-12-09] MEDS ORDERED: FURO20TA4 PO (09:28)
[2017-12-09] MEDS ORDERED: POTA10CA68 PO (09:29)
[2017-12-09] MEDS ORDERED: CALC-250 PO (09:33)
[2017-12-09 12:00] VITALS: BP 132/85
--- NOTE | 2017-12-09 13:09 | History & Physical-Hospitalist ---
History of Present Illness HPI/Chief Complaint The patient is a 72-year-old chronically ill white female. She was admitted from the emergency room after she presented with complaints of shortness of breath. She is chronically ill and was treated in 2017 with radiation and chemotherapy for a right lung cancer. T-sheet type is not available to me at this time. Subsequently in 2023 she was here from May 01 with a right lower lobe pneumonia. Subsequently she was admitted on 05/14 through 05/23 with severe sepsis and then apparently readmitted the same day of discharge on 05/23 through 05/31 for congestive heart failure. She then resided at [facility] until 3 days ago. She reported that she did reasonably well but on chronic O2. She transferred to [facility] 3 days ago and immediately noted herself to be more short of breath. Apparently the SaO2's ran low there but the ambulance and the emergency room found her to have very satisfactory SaO2's an hour equipment. She reports she is comfortable now. She denies fever. She has some sputum production but that is about as usual. There have been no sweats or chills. The chest x-ray showed no evidence of pneumonia but it was reported she had unchanged and multiple nodular opacities as noted on her previous chest x-ray. Date Seen 12/09/17 Time Seen by Provider: 13:04 Attending Physician Harshal Rojas MD PCP Sanju Morris DO Referring Physician Date of Admission Dec 09, 2017 at 03:45 Home Medications & Allergies Home Medications Reviewed patient Home Medication Reconciliation performed by pharmacy medication reconciliations mail technician and/or nursing. Patients Allergies have been reviewed. Allergies Allergies Coded Allergies Penicillins (Verified Allergy, Severe, ANAPHYLAXIS, 09/04/16) hydrochlorothiazide (Verified Allergy, Intermediate, RASH, 01/29/17) penicillin G (Verified Allergy, Unknown, 09/04/16) Past Wcdhuzf-Uawsqk-Tyeahm Hx Past Med/Social Hx: Reviewed Nursing Past Med/Soc Hx Patient Social History Alcohol Use: Denies Use Recreational Drug Use: No Smoking Status: Former Smoker Former Smoker, Quit: Jan 28, 2013 Type Used: Cigarettes Physical Abuse Screen: No Sexual Abuse: No Recent Foreign Travel: No Contact w/other who traveled: No Recent Hopitalizations: No Recent Infectious Disease Expo: No Immunizations Up To Date Tetanus Booster (TDap): Unknown Pediatric: Yes Date of Pneumonia Vaccine: Jan 07, 2016 Date of Influenza Vaccine: Jan 06, 2017 Seasonal Allergies Seasonal Allergies: Yes Past Medical History Surgeries: Cardiac, CABG, Coronary Stent, Lobectomy, Orthopedic, Vascular Surgery Respiratory: COPD, Pneumonia Currently Using CPAP: No Currently Using BIPAP: No Cardiac: Atrial Fibrillation, Coronary Artery Disease, High Cholesterol, Hypertension, Peripheral Vascular : No Reproductive: Yes (26 YRS. 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 Disorders: Denies Menopausal Gastrointestinal: Abdominal Hernia, Gastroesophageal Reflux Musculoskeletal: Osteoporosis, Arthritis, Fractures Endocrine: Hypothyroidsim, Diabetes, Non-Insulin dep HEENT: Cataract Loss of Vision: Denies Hearing Impairment: Denies Cancer: Lung Did You Recieve Any Treatments: Yes (2016) What Type of Treatment Did You: Chemotherapy, Radiation, Surgical Intervention Psychosocial: Anxiety History of Blood Disorders: No Adverse Reaction to Blood Silva: No Family History Chest pain 09 SISTER Congestive heart failure G-MA Family history: Cardiovascular disease 03 FATHER (68) 09 SISTER Family history: Hypertension 03 FATHER 09 SISTER G-MA Stroke No Pertinent Family Hx Review of Systems Constitutional: see HPI EENTM: no symptoms reported Respiratory: see HPI, cough, dyspnea on exertion, phlegm, short of breath, wheezing Cardiovascular: other (previous history of congestive heart failure) Gastrointestinal: no symptoms reported Genitourinary: no symptoms reported Musculoskeletal: muscle weakness Skin: no symptoms reported Psychiatric/Neurological: No Symptoms Reported Physical Exam Physical Exam Vital Signs Vital Signs - First Documented 12/09/17 02:27 Temp 97.4 Pulse 85 Resp 20 B/P (MAP) 163/106 (125) Pulse Ox 98 O2 Delivery Nasal Cannula O2 Flow Rate 3.00 FiO2 100 Capillary Refill : Less Than 3 Seconds Height, Weight, BMI Height: 5'1.00" Weight: 101lbs. 0.4oz. 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 Assessment/Plan Admission Diagnosis 1.severe COPD, oxygen dependent 2.hypoxia question mechanical failure at present lodging. 3.history of lung cancer tissue type unknown. Admission Status: Observation Clinical Quality Measures DVT/VTE Risk/Contraindication: Risk Factor Score Per Nursin RFS Level Per Nursing on Admit: 4+=Very High HARSHAL ROJAS MD Dec 09, 2017 13:09
[2017-12-09 15:40] VITALS: BP 141/80
[2017-12-09] MEDS: metFORMIN 500 MG (GLUCOPHAGE) TAB PO SCH (16:02)
[2017-12-09] MEDS: KCL 20 MEQ TAB (K-DUR) PO SCH (16:02)
[2017-12-09 19:20] VITALS: BP 154/75
[2017-12-09] MEDS: APIXABAN 2.5 MG (ELIQUIS) TABLET PO SCH (19:25)
[2017-12-09] MEDS: methylPREDNISolone 125 MG (Solu-MEDROL) VIAL IVP SCH (19:25)
[2017-12-09] MEDS: HYDROcodone/APAP 5 MG/325 MG (LORTAB) TAB PO PRN (19:26)
[2017-12-09] MEDS: meTOprolol TARTRATE 50 MG (LOPRESSOR) TAB PO SCH (19:26)
[2017-12-09] MEDS: RT-ALBUTEROL SULF 2.5 MG/3 ML PRE-MIX VIAL INH SCH (19:42)
[2017-12-10 00:12] VITALS: BP 154/74
[2017-12-10] MEDS: RT-ALBUTEROL SULF 2.5 MG/3 ML PRE-MIX VIAL INH SCH ×4 (02:30→19:13)
[2017-12-10] MEDS: HYDROcodone/APAP 5 MG/325 MG (LORTAB) TAB PO PRN ×2 (02:58→20:49)
[2017-12-10 04:15] VITALS: BP_SYST 150; BP_SYST 154; BP_DIAS 72; BP_DIAS 74
[2017-12-10] MEDS: metFORMIN 500 MG (GLUCOPHAGE) TAB PO SCH ×2 (06:16→16:17)
[2017-12-10] MEDS: KCL 20 MEQ TAB (K-DUR) PO SCH (06:16)
[2017-12-10] MEDS: ASPIRIN E.C. 81 MG (ECOTRIN) TAB PO SCH (08:04)
[2017-12-10] MEDS: meTOprolol TARTRATE 50 MG (LOPRESSOR) TAB PO SCH ×2 (08:04→20:48)
[2017-12-10] MEDS: APIXABAN 2.5 MG (ELIQUIS) TABLET PO SCH ×2 (08:04→20:48)
[2017-12-10] MEDS: methylPREDNISolone 125 MG (Solu-MEDROL) VIAL IVP SCH ×2 (08:04→20:49)
[2017-12-10] MEDS: LEVOTHYROXINE 50 MCG (LEVOTHROID) TAB PO SCH (08:04)
[2017-12-10] MEDS: DILTIAZEM 240 MG (CARDIZEM CD) CAP PO SCH (08:05)
[2017-12-10] MEDS ORDERED: PROMETHAZINE/ CODEINE SYRUP 5 ML UDC PO PRN ×2 (08:15→11:30)
--- NOTE | 2017-12-10 08:17 | Progress Note (SOAP) ---
Subjective Time Seen by Provider: 08:15 Subjective/Events-last exam Patient feeling better today. Patient states she feels better with normal oxygen going to her Checking out of today if the oxygen at the assisted living care center was working. Pulse ox 50 at assisted living Objective Exam Vital Signs Date Time Temp Pulse Resp B/P (MAP) Pulse Ox O2 Delivery O2 Flow Rate FiO2 12/10/17 04:15 98.0 92 17 150/72 (98) 94 Nasal Cannula 3.00 12/10/17 02:30 93 Nasal Cannula 4.00 12/10/17 00:12 98.0 80 18 154/74 (100) 97 Nasal Cannula 3.00 12/09/17 20:21 Nasal Cannula 3.50 12/09/17 19:43 93 Nasal Cannula 3.00 12/09/17 19:26 100.0 12/09/17 19:20 100.5 100 20 154/75 (101) 94 Nasal Cannula 3.00 12/09/17 15:40 98.4 98 18 141/80 (100) 97 Nasal Cannula 3.00 12/09/17 15:21 94 97 12/09/17 14:52 94 Nasal Cannula 4.00 12/09/17 13:00 106 12/09/17 12:00 100.2 155 22 132/85 (101) 91 Nasal Cannula 3.00 12/09/17 08:51 96 Nasal Cannula 4.00 12/09/17 08:38 104 17 97 50.00 I & O 12/10/17 07:00 Intake Total 1350 ml Output Total 1551 ml Balance -201 ml Capillary Refill : Less Than 3 SecondsLess Than 3 Seconds General Appearance: No Apparent Distress, Thin HEENT: Normal ENT Inspection Neck: Normal Inspection Respiratory: Decreased Breath Sounds Cardiovascular: Regular Rate, Rhythm, No Murmur Gastrointestinal: non tender, soft Assessment/Plan Assessment/Plan Assess & Plan/Chief Complaint COPD with acute exacerbation. Short of breath. Lung cancer. Diabetes. Coronary artery disease Clinical Quality Measures DVT/VTE Risk/Contraindication: Risk Factor Score Per Nursin RFS Level Per Nursing on Admit: 4+=Very High WEST MCCAULEY DO Dec 10, 2017 08:17
[2017-12-10 08:36] VITALS: BP 158/78
[2017-12-10 10:37] LABS: BASOPHILS % (AUTO) 0 % (0-10); EOSINOPHILS % (AUTO) 0 % (0-10); HEMATOCRIT 39 % (35-52); HEMOGLOBIN 11.4 G/DL (11.5-16.0); LYMPHOCYTES # (AUTO) 0.4 X 10^3 (1.0-4.0); LYMPHOCYTES % (AUTO) 4 % (12-44); MEAN CORPUSCULAR HGB CONC 29 G/DL (32-36); MEAN CORPUSCULAR VOLUME 101 FL (80-99); MEAN PLATELET VOLUME 10.4 FL (7.4-10.4); MONOCYTES # (AUTO) 0.6 X 10^3 (0.0-1.0); MONOCYTES % (AUTO) 5 % (0-12); NEUTROPHILS # (AUTO) 10.3 X 10^3 (1.8-7.8); NEUTROPHILS % (AUTO) 91 % (42-75); PLATELET COUNT 271 10^3/uL (130-400); RED BLOOD COUNT 3.87 10^6/uL (4.35-5.85); RED CELL DISTRIBUTION WIDTH 15.3 % (10.0-14.5); WHITE BLOOD COUNT 11.3 10^3/uL (4.3-11.0)
[2017-12-10 10:41] LABS: MEAN CORPUSCULAR HEMOGLOBIN 29 PG (25-34)
[2017-12-10 11:00] LABS: BUN/CREATININE RATIO 25; CALCIUM 9.2 MG/DL (8.5-10.1); CARBON DIOXIDE 38 MMOL/L (21-32); CHLORIDE 92 MMOL/L (98-107); CREATININE SERUM 0.64 MG/DL (0.60-1.30); GFR ESTIMATED > 60; GLUCOSE 154 MG/DL (70-105); POTASSIUM 4.2 MMOL/L (3.6-5.0); SODIUM 141 MMOL/L (135-145)
[2017-12-10 12:00] VITALS: BP 123/74
[2017-12-10 15:20] VITALS: BP 118/60
[2017-12-10 19:41] VITALS: BP 126/58
[2017-12-11 00:47] VITALS: BP 140/67
[2017-12-11] MEDS: RT-ALBUTEROL SULF 2.5 MG/3 ML PRE-MIX VIAL INH SCH ×2 (01:42→09:42)
[2017-12-11 04:04] VITALS: BP 135/70
[2017-12-11] MEDS: KCL 20 MEQ TAB (K-DUR) PO SCH (06:13)
[2017-12-11] MEDS: metFORMIN 500 MG (GLUCOPHAGE) TAB PO SCH (06:13)
[2017-12-11 06:19] LABS: HEMOGLOBIN 10.7 G/DL (11.5-16.0); MEAN PLATELET VOLUME 10.4 FL (7.4-10.4); RED BLOOD COUNT 3.53 10^6/uL (4.35-5.85)
[2017-12-11 06:41] LABS: BUN/CREATININE RATIO 34; CALCIUM 9.4 MG/DL (8.5-10.1); CARBON DIOXIDE 39 MMOL/L (21-32); CHLORIDE 91 MMOL/L (98-107); CREATININE SERUM 0.68 MG/DL (0.60-1.30); GFR ESTIMATED > 60; GLUCOSE 239 MG/DL (70-105); POTASSIUM 4.9 MMOL/L (3.6-5.0); SODIUM 140 MMOL/L (135-145)
[2017-12-11 08:00] VITALS: BP 131/67
--- NOTE | 2017-12-11 08:18 | Progress Note (SOAP) ---
Subjective Time Seen by Provider: 08:05 Subjective/Events-last exam Ration feeling better today. Patient wants to go home. Plan to discharge patient today. Patient takes off oxygen at times because she forgets. Patient told to leave the oxygen on Objective Exam Vital Signs Date Time Temp Pulse Resp B/P (MAP) Pulse Ox O2 Delivery O2 Flow Rate FiO2 12/11/17 04:04 97.7 81 19 135/70 (91) 95 Nasal Cannula 4.00 12/11/17 01:44 91 Nasal Cannula 4.00 12/11/17 00:47 98.0 68 18 140/67 (91) 97 Nasal Cannula 4.00 12/10/17 20:30 Nasal Cannula 4.00 12/10/17 19:41 99.1 84 20 126/58 (80) 93 Nasal Cannula 4.00 12/10/17 19:15 92 Nasal Cannula 4.00 12/10/17 15:20 98.7 68 18 118/60 (79) 97 Nasal Cannula 4.00 12/10/17 14:01 92 Nasal Cannula 4.00 12/10/17 12:00 98.8 80 18 123/74 (90) 96 Nasal Cannula 4.00 12/10/17 08:45 97 Nasal Cannula 4.00 12/10/17 08:36 98.2 80 16 158/78 (104) 90 Nasal Cannula 4.00 12/10/17 08:35 Nasal Cannula 4.00 I & O 12/11/17 07:00 Intake Total 1620 ml Output Total 700 ml Balance 920 ml Capillary Refill : Less Than 3 SecondsLess Than 3 Seconds General Appearance: No Apparent Distress, Thin HEENT: Normal ENT Inspection Neck: Full Range of Motion, Normal Inspection Respiratory: No Accessory Muscle Use, No Respiratory Distress, Decreased Breath Sounds Cardiovascular: Regular Rate, Rhythm, No Murmur Gastrointestinal: non tender, soft Results Lab Laboratory Tests 12/10/17 10:12 12/11/17 05:55 Laboratory Tests 12/10/17 10:12: White Blood Count 11.3H, Red Blood Count 3.87L, Hemoglobin 11.4L, Hematocrit 39 , Mean Corpuscular Volume 101H, Mean Corpuscular Hemoglobin 29, Mean Corpuscular Hemoglobin Concent 29L, Red Cell Distribution Width 15.3H, Platelet Count 271, Mean Platelet Volume 10.4, Neutrophils (%) (Auto) 91H, Lymphocytes (% ) (Auto) 4L, Monocytes (%) (Auto) 5, Eosinophils (%) (Auto) 0, Basophils (%) ( Auto) 0, Neutrophils # (Auto) 10.3H, Lymphocytes # (Auto) 0.4L, Monocytes # ( Auto) 0.6, Eosinophils # (Auto) 0.0, Basophils # (Auto) 0.0, Sodium Level 141, Potassium Level 4.2, Chloride Level 92L, Carbon Dioxide Level 38H, Anion Gap 11 , Blood Urea Nitrogen 16, Creatinine 0.64, Estimat Glomerular Filtration Rate > 60, BUN/Creatinine Ratio 25, Glucose Level 154H, Calcium Level 9.2 12/11/17 05:55: White Blood Count 10.0, Red Blood Count 3.53L, Hemoglobin 10.7L, Hematocrit 36, Mean Corpuscular Volume 101H, Mean Corpuscular Hemoglobin 30, Mean Corpuscular Hemoglobin Concent 30L, Red Cell Distribution Width 15.0H, Platelet Count 242, Mean Platelet Volume 10.4, Sodium Level 140, Potassium Level 4.9, Chloride Level 91L, Carbon Dioxide Level 39H, Anion Gap 10, Blood Urea Nitrogen 23H, Creatinine 0.68, Estimat Glomerular Filtration Rate > 60, BUN/Creatinine Ratio 34, Glucose Level 239H, Calcium Level 9.4 Assessment/Plan Assessment/Plan Assess & Plan/Chief Complaint COPD with acute exacerbation. Short of breath. Lung cancer. Diabetes. Coronary artery disease. . 12/11/17. COPD with acute exacerbation is better. Short of breath. History of lung cancer. Diabetes. Coronary artery disease. Patient feeling good and wants to be discharged today Clinical Quality Measures DVT/VTE Risk/Contraindication: Risk Factor Score Per Nursin RFS Level Per Nursing on Admit: 4+=Very High WEST MCCAULEY DO Dec 11, 2017 08:18
--- NOTE | 2017-12-11 09:06 | Diagnostic Imaging Report ---
CLINICAL INDICATION: Followup COPD and lung cancer. EXAM: Chest x-ray, PA and lateral views. COMPARISON: Chest x-ray dated 12/09/2017. Chest x-ray dated 12/02/2017. FINDINGS: Given the differences in technique, there is no significant change to the nodular masses seen in the left midlung fluid and left lower lung field region. The largest one measures 1.6 cm in the left midlung field region. The lower lung field one measures roughly 12 mm and is stable. Stable postop changes are seen in the left upper chest with architectural distortion and surgical sutures. A nipple shadow is seen overlying the right lower lung field. There is slightly improved aeration of both lung bases compared to the prior study. There is similar subtle increased density in the right lung base which may be related to atelectasis or scarring versus infiltrate and has not significantly changed. There is increased amorphous density in the right perihilar region which may be related to scarring, atelectasis, and/or infiltrate. There are slightly hyperinflated lungs, increased retrosternal clear space, and flattened hemidiaphragms which can be seen with COPD changes. There is no pleural effusion or pneumothorax. The pulmonary vasculature and cardiac silhouette are within normal limits. Stable postop changes to the chest with sternotomy wires and mediastinal clips. There is osteopenia and multiple compression fracture deformities of the thoracolumbar spine region which are stable compared to the chest x-ray dated 12/02/2017. Again seen are fracture deformities and malalignment of the bilateral proximal humeral head/neck junction regions. IMPRESSION: 1. There is slightly improved aeration to both lung bases. There is otherwise stable increased density in the right perihilar region and right lung base which may represent atelectasis or scarring versus infiltrate. 2. Stable lung nodular areas overlying the left midlung field and left lung base. 3. COPD lung changes. 4. The remainder of this exam shows no significant interval change compared to the prior study of comparison. Dictated by: Dictated on workstation # [id number]
[2017-12-11] MEDS: meTOprolol TARTRATE 50 MG (LOPRESSOR) TAB PO SCH (09:33)
[2017-12-11] MEDS: APIXABAN 2.5 MG (ELIQUIS) TABLET PO SCH (09:33)
[2017-12-11] MEDS: ASPIRIN E.C. 81 MG (ECOTRIN) TAB PO SCH (09:33)
[2017-12-11] MEDS: DILTIAZEM 240 MG (CARDIZEM CD) CAP PO SCH (09:33)
[2017-12-11] MEDS: LEVOTHYROXINE 50 MCG (LEVOTHROID) TAB PO SCH (09:33)
[2017-12-11 12:00] VITALS: BP 140/70
--- NOTE | 2017-12-11 17:36 | CONSULTATION REPORT ---
DATE OF SERVICE: 12/11/2017 REFERRING AND PRIMARY CARE PHYSICIAN: Sanju Morris, The patient is admitted to room 421. IMPRESSION: 1. A 72-year-old female admitted with increasing shortness of breath and hypoxia. 2. Significant chronic obstructive pulmonary disease with oxygen dependence. 3. History of non-small cell lung cancer diagnosed in mid 2016, status post definitive chemoradiation completing all treatments by 11/30/2016. 4. Osteopenia/osteoporosis with multiple compression fractures as well as right intertrochanteric femur fracture requiring intramedullary knee replacement in early 2018. RECOMMENDATIONS: 1. Continue management of exacerbation of COPD as you are doing. 2. With her most recent restaging studies, she has no evidence of recurrent or metastatic lung cancer. 3. May discharge her to the custodial when stable from medical standpoint. 4. Keep [facility]up appointment [facility] as scheduled for 01/2018. BRIEF HISTORY: The patient is a 72-year-old female patient admitted to the hospital from the emergency room with increasing shortness of breath and hypoxia. The patient had moved to a new assisted care facility a few days prior to her emergency room visit. Her oxygen machine apparently was not working properly and she was found to be hypoxic at the time of evaluation at the emergency room. She was admitted to the hospital for further management. She is being treated with IV steroids, bronchodilators and oxygen with fairly rapid improvement in her symptoms. She did have worsening forgetfulness at the time of interview. 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 She has been on surveillance since then. She has significant history of COPD and is oxygen dependent. She has also been requiring pulse steroids frequently. She has coronary artery disease and 4-vessel CABG in 2013. Following this, she required an angioplasty in 2016. Peripheral arterial disease requiring stents in both lower extremities in 2016 as well as in 2017. She is on chronic anticoagulation. She underwent a wedge resection of left upper lobe in 2012 at the time of CABG, which was benign. Longstanding history of hypertension and hyperlipidemia. Hypothyroidism and on replacement. History of pulmonary hypertension. SOCIAL HISTORY: The patient is . She was living by herself in [place] prior to her intertrochanteric fracture. She has been in an assisted care facility since discharge from the hospital and recently moved to [facility]. She has two sons, both of whom live close by. She has more than [id number] history of tobacco use and quit in 2012. 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 No history of alcohol or other recreational drug use. FAMILY HISTORY: Unremarkable with no major malignancies that the patient knows of. Her parents had history of hypertension and coronary artery disease. PHYSICAL EXAMINATION: GENERAL: Showed an elderly female, thin and weak appearing, using supplemental oxygen, but in no acute distress. VITAL SIGNS: Temperature was 98.5, pulse rate of 75, respirations 20, blood pressure 140/70, oxygen saturation was 99% on 4 liters of oxygen by nasal cannula. HEENT: Normocephalic. Extraocular muscles intact. Conjunctivae pink. Oral mucosa moist. NECK: Supple with no JVD. No cervical, supraclavicular or axillary lymphadenopathy palpable. CHEST: Symmetrical. Lungs with significantly diminished breath sounds bilaterally. No wheezes or rales heard. CARDIOVASCULAR: Regular in rate and rhythm. No murmurs or gallops heard. ABDOMEN: Soft, nontender with no hepatosplenomegaly or other masses palpable. EXTREMITIES: Showed no edema. NEUROLOGIC: Showed motor strength 4/5 bilaterally. No focal motor deficits noted. LABORATORY DATA: CBC done today showed WBC 10.0, hemoglobin 10.7, MCV 101, platelet count 242,000. BMP done today showed CO2 level elevated at 39. The rest of the electrolytes are relatively normal. BUN was 23 and creatinine 0.68 with GFR more than 60 mL per minute. Glucose was elevated at 239. Liver function studies from 12/09/2017 was within normal limits. Chest x-ray done today showed improvement in aeration to both lung bases. Stable increased density in the right perihilar region and right lung base. Chronic COPD changes. Osteopenia with multiple compression fracture deformities of the thoracolumbar spine, which is stable. Fracture deformities and malalignment of the bilateral proximal humeral head neck junction regions. Thank you for allowing me to participate in this patient's care. I will follow the patient with you and make appropriate recommendations. Job ID: [id number] DocumentID: [id number] Dictated Date: 12/11/2017 14:17:24 Chemical Treatment Operator Date: 12/11/2017 17:36:12 Dictated By: KRISTINE LOWERY MD [facility]OSPITALCarlos
[2017-12-12] MEDS ORDERED: CHOL20002 PO (10:26)
--- NOTE | 2017-12-13 08:42 | Discharge Summary ---
Diagnosis/Chief Complaint Date of Admission Dec 10, 2017 at 12:31 Date of Discharge Dec 11, 2017 at 13:58 Discharge Time: 08:40 Discharge Diagnosis Shortness of breath. Hypoxia. Hypercapnia. COPD with acute exacerbation. History of lung cancer. Coronary artery disease. Discharge Summary Discharge Physical Examination Allergies: Coded Allergies: Penicillins (Verified Allergy, Severe, ANAPHYLAXIS, 09/04/16) hydrochlorothiazide (Verified Allergy, Intermediate, RASH, 01/29/17) penicillin G (Verified Allergy, Unknown, 09/04/16) Vitals & I&Os Vital Signs Date Time Temp Pulse Resp B/P (MAP) Pulse Ox O2 Delivery O2 Flow Rate FiO2 12/11/17 12:00 98.5 75 20 140/70 (93) 99 Nasal Cannula 4.00 12/09/17 04:35 100 Hospital Course Patient did better. Patient discharged back to assisted living Labs (last 24 hrs) Laboratory Tests 12/09/17 02:27: White Blood Count 6.9, Red Blood Count 4.16L, Hemoglobin 12.7, Hematocrit 41, Mean Corpuscular Volume 98, Mean Corpuscular Hemoglobin 31, Mean Corpuscular Hemoglobin Concent 31L, Red Cell Distribution Width 15.1H, Platelet Count 242, Mean Platelet Volume 10.2, Neutrophils (%) (Auto) 76H, Lymphocytes (%) (Auto) 10L, Monocytes (%) (Auto) 11, Eosinophils (%) (Auto) 2, Basophils (%) (Auto) 0, Neutrophils # (Auto) 5.3, Lymphocytes # (Auto) 0.7L, Monocytes # (Auto) 0.8, Eosinophils # (Auto) 0.1, Basophils # (Auto) 0.0, Prothrombin Time 13.6, INR Comment 1.0, Activated Partial Thromboplast Time 30, Sodium Level 142, Potassium Level 2.8L, Chloride Level 86L, Carbon Dioxide Level 40H, Anion Gap 16H, Blood Urea Nitrogen 16, Creatinine 0.73, Estimat Glomerular Filtration Rate > 60, BUN/Creatinine Ratio 22, Glucose Level 161H, Calcium Level 9.9, Corrected Calcium 9.7, Magnesium Level 1.9, Total Bilirubin 0.4, Aspartate Amino Transf (AST/SGOT) 22, Alanine Aminotransferase (ALT/SGPT) 24, Alkaline Phosphatase 74, Troponin I < 0.30, B-Type Natriuretic Peptide 305.0H, Total Protein 7.7, Albumin 4.2 12/09/17 03:21: Blood Gas Puncture Site R RAD, Blood Gas Patient Temperature 97.4, Arterial Blood pH 7.35L, Arterial Blood Partial Pressure CO2 91*H, Arterial Blood Partial Pressure O2 80, Arterial Blood HCO3 49*H, Arterial Blood Total CO2 52.0H , Arterial Blood Oxygen Saturation 96, Arterial Blood Base Excess 22.0H, Bruce Test YES-POS, Blood Gas Ventilator Setting NO, Blood Gas Inspired Oxygen 3L 12/09/17 05:32: White Blood Count 9.0, Red Blood Count 3.97L, Hemoglobin 12.1, Hematocrit 39, Mean Corpuscular Volume 98, Mean Corpuscular Hemoglobin 31, Mean Corpuscular Hemoglobin Concent 31L, Red Cell Distribution Width 15.0H, Platelet Count 241, Mean Platelet Volume 10.2, Neutrophils (%) (Auto) 94H, Lymphocytes (%) (Auto) 4L , Monocytes (%) (Auto) 2, Eosinophils (%) (Auto) 0, Basophils (%) (Auto) 0, Neutrophils # (Auto) 8.4H, Lymphocytes # (Auto) 0.4L, Monocytes # (Auto) 0.2, Eosinophils # (Auto) 0.0, Basophils # (Auto) 0.0, Sodium Level 142, Potassium Level 2.7L, Chloride Level 87L, Carbon Dioxide Level 39H, Anion Gap 16H, Blood Urea Nitrogen 15, Creatinine 0.73, Estimat Glomerular Filtration Rate > 60, BUN/ Creatinine Ratio 21, Glucose Level 242H, Calcium Level 9.6, Corrected Calcium 9.7, Total Bilirubin 0.4, Aspartate Amino Transf (AST/SGOT) 20, Alanine Aminotransferase (ALT/SGPT) 23, Alkaline Phosphatase 69, Total Protein 7.0, Albumin 3.9, Neutrophils % (Manual) 92, Lymphocytes % (Manual) 5, Monocytes % ( Manual) 1, Eosinophils % (Manual) 0, Basophils % (Manual) 0, Band Neutrophils 2 , Hypochromasia SLIGHT, Anisocytosis SLIGHT, Elliptocytes SLIGHT 12/10/17 10:12: White Blood Count 11.3H, Red Blood Count 3.87L, Hemoglobin 11.4L, Hematocrit 39 , Mean Corpuscular Volume 101H, Mean Corpuscular Hemoglobin 29, Mean Corpuscular Hemoglobin Concent 29L, Red Cell Distribution Width 15.3H, Platelet Count 271, Mean Platelet Volume 10.4, Neutrophils (%) (Auto) 91H, Lymphocytes (% ) (Auto) 4L, Monocytes (%) (Auto) 5, Eosinophils (%) (Auto) 0, Basophils (%) ( Auto) 0, Neutrophils # (Auto) 10.3H, Lymphocytes # (Auto) 0.4L, Monocytes # ( Auto) 0.6, Eosinophils # (Auto) 0.0, Basophils # (Auto) 0.0, Sodium Level 141, Potassium Level 4.2, Chloride Level 92L, Carbon Dioxide Level 38H, Anion Gap 11 , Blood Urea Nitrogen 16, Creatinine 0.64, Estimat Glomerular Filtration Rate > 60, BUN/Creatinine Ratio 25, Glucose Level 154H, Calcium Level 9.2 12/11/17 05:55: White Blood Count 10.0, Red Blood Count 3.53L, Hemoglobin 10.7L, Hematocrit 36, Mean Corpuscular Volume 101H, Mean Corpuscular Hemoglobin 30, Mean Corpuscular Hemoglobin Concent 30L, Red Cell Distribution Width 15.0H, Platelet Count 242, Mean Platelet Volume 10.4, Sodium Level 140, Potassium Level 4.9, Chloride Level 91L, Carbon Dioxide Level 39H, Anion Gap 10, Blood Urea Nitrogen 23H, Creatinine 0.68, Estimat Glomerular Filtration Rate > 60, BUN/Creatinine Ratio 34, Glucose Level 239H, Calcium Level 9.4 Laboratory Tests 12/09/17 02:27 12/09/17 05:32 12/10/17 10:12 12/11/17 05:55 Pending Labs Laboratory Tests 12/09/17 02:27: White Blood Count 6.9, Red Blood Count 4.16, Hemoglobin 12.7, Hematocrit 41, Mean Corpuscular Volume 98, Mean Corpuscular Hemoglobin 31, Mean Corpuscular Hemoglobin Concent 31, Red Cell Distribution Width 15.1, Platelet Count 242, Mean Platelet Volume 10.2, Neutrophils (%) (Auto) 76, Lymphocytes (%) (Auto) 10 , Monocytes (%) (Auto) 11, Eosinophils (%) (Auto) 2, Basophils (%) (Auto) 0, Neutrophils # (Auto) 5.3, Lymphocytes # (Auto) 0.7, Monocytes # (Auto) 0.8, Eosinophils # (Auto) 0.1, Basophils # (Auto) 0.0, Prothrombin Time 13.6, INR Comment 1.0, Activated Partial Thromboplast Time 30, Sodium Level 142, Potassium Level 2.8, Chloride Level 86, Carbon Dioxide Level 40, Anion Gap 16, Blood Urea Nitrogen 16, Creatinine 0.73, Estimat Glomerular Filtration Rate > 60 , BUN/Creatinine Ratio 22, Glucose Level 161, Calcium Level 9.9, Corrected Calcium 9.7, Magnesium Level 1.9, Total Bilirubin 0.4, Aspartate Amino Transf ( AST/SGOT) 22, Alanine Aminotransferase (ALT/SGPT) 24, Alkaline Phosphatase 74, Troponin I < 0.30, B-Type Natriuretic Peptide 305.0, Total Protein 7.7, Albumin 4.2 12/09/17 03:21: Blood Gas Puncture Site R RAD, Blood Gas Patient Temperature 97.4, Arterial Blood pH 7.35, Arterial Blood Partial Pressure CO2 91, Arterial Blood Partial Pressure O2 80, Arterial Blood HCO3 49, Arterial Blood Total CO2 52.0, Arterial Blood Oxygen Saturation 96, Arterial Blood Base Excess 22.0, Bruce Test YES-POS , Blood Gas Ventilator Setting NO, Blood Gas Inspired Oxygen 3L 12/09/17 05:32: White Blood Count 9.0, Red Blood Count 3.97, Hemoglobin 12.1, Hematocrit 39, Mean Corpuscular Volume 98, Mean Corpuscular Hemoglobin 31, Mean Corpuscular Hemoglobin Concent 31, Red Cell Distribution Width 15.0, Platelet Count 241, Mean Platelet Volume 10.2, Neutrophils (%) (Auto) 94, Lymphocytes (%) (Auto) 4, Monocytes (%) (Auto) 2, Eosinophils (%) (Auto) 0, Basophils (%) (Auto) 0, Neutrophils # (Auto) 8.4, Lymphocytes # (Auto) 0.4, Monocytes # (Auto) 0.2, Eosinophils # (Auto) 0.0, Basophils # (Auto) 0.0, Sodium Level 142, Potassium Level 2.7, Chloride Level 87, Carbon Dioxide Level 39, Anion Gap 16, Blood Urea Nitrogen 15, Creatinine 0.73, Estimat Glomerular Filtration Rate > 60, BUN/ Creatinine Ratio 21, Glucose Level 242, Calcium Level 9.6, Corrected Calcium 9.7 , Total Bilirubin 0.4, Aspartate Amino Transf (AST/SGOT) 20, Alanine Aminotransferase (ALT/SGPT) 23, Alkaline Phosphatase 69, Total Protein 7.0, Albumin 3.9, Neutrophils % (Manual) 92, Lymphocytes % (Manual) 5, Monocytes % ( Manual) 1, Eosinophils % (Manual) 0, Basophils % (Manual) 0, Band Neutrophils 2 , Hypochromasia SLIGHT, Anisocytosis SLIGHT, Elliptocytes SLIGHT 12/10/17 10:12: White Blood Count 11.3, Red Blood Count 3.87, Hemoglobin 11.4, Hematocrit 39, Mean Corpuscular Volume 101, Mean Corpuscular Hemoglobin 29, Mean Corpuscular Hemoglobin Concent 29, Red Cell Distribution Width 15.3, Platelet Count 271, Mean Platelet Volume 10.4, Neutrophils (%) (Auto) 91, Lymphocytes (%) (Auto) 4, Monocytes (%) (Auto) 5, Eosinophils (%) (Auto) 0, Basophils (%) (Auto) 0, Neutrophils # (Auto) 10.3, Lymphocytes # (Auto) 0.4, Monocytes # (Auto) 0.6, Eosinophils # (Auto) 0.0, Basophils # (Auto) 0.0, Sodium Level 141, Potassium Level 4.2, Chloride Level 92, Carbon Dioxide Level 38, Anion Gap 11, Blood Urea Nitrogen 16, Creatinine 0.64, Estimat Glomerular Filtration Rate > 60, BUN/ Creatinine Ratio 25, Glucose Level 154, Calcium Level 9.2 12/11/17 05:55: White Blood Count 10.0, Red Blood Count 3.53, Hemoglobin 10.7, Hematocrit 36, Mean Corpuscular Volume 101, Mean Corpuscular Hemoglobin 30, Mean Corpuscular Hemoglobin Concent 30, Red Cell Distribution Width 15.0, Platelet Count 242, Mean Platelet Volume 10.4, Sodium Level 140, Potassium Level 4.9, Chloride Level 91, Carbon Dioxide Level 39, Anion Gap 10, Blood Urea Nitrogen 23, Creatinine 0.68, Estimat Glomerular Filtration Rate > 60, BUN/Creatinine Ratio 34, Glucose Level 239, Calcium Level 9.4 Discharge Home Medications: Active Scripts Active Reported Vitamin D-3 (Cholecalciferol (Vitamin D3)) 2,000 Unit Capsule 2,000 Unit PO DAILY Klor-Con Sprinkle (Potassium Chloride) 10 Meq Capsule.er 10 Meq PO DAILY Furosemide 20 Mg Tablet 20 Mg PO DAILY Calcium (Calcium Carbonate) 500 Mg Tablet 500 Mg PO BID Metformin HCl 500 Mg Tablet 500 Mg PO BID WITH MEALS Eliquis (Apixaban) 2.5 Mg Tablet 2.5 Mg PO BID Cartia Xt (Diltiazem HCl) 240 Mg Cap.er.24h 240 Mg PO DAILY Aspirin EC (Aspirin) 81 Mg Tablet.dr 81 Mg PO DAILY Alendronate Sodium 70 Mg Tablet 70 Mg PO SATURDAY Stress Formula (Multivits,Stress Formula) 1 Each Tablet 1 Tab PO DAILY Atorvastatin Calcium 40 Mg Tablet 40 Mg PO HS Pantoprazole Sodium 40 Mg Tablet.dr 40 Mg PO DAILY Promethazine-Codeine Syrup (Promethazine HCl/Codeine) 118 Ml Syrup 10 Ml PO TID PRN Cetirizine HCl 10 Mg Tablet 10 Mg PO HS Levothyroxine Sodium 50 Mcg Tablet 50 Mcg PO DAILY Albuterol Sulfate 2.5 Mg/3 Ml Vial.neb 2.5 Mg NEB Q6H PRN Metoprolol Tartrate 50 Mg Tablet 50 Mg PO BID Instructions to patient/family Please see electronic discharge instructions given to patient. Clinical Quality Measures DVT/VTE Risk/Contraindication: Risk Factor Score Per Nursin RFS Level Per Nursing on Admit: 4+=Very High WEST MCCAULEY DO Dec 13, 2017 08:42
== END 2017-12-11 13:58 | DRG 192 ==
LOC: EDUNIT# 02:17 → ER 02:18 → UNDOADMOB 03:45 → 4TH 03:45 → OBSVTOIN 12-10 12:31 → INTOOBSV 12-10 12:36 → OBSVTOIN 12-10 12:36 → UNDODISIN 12-11 13:58
PROVIDERS: ADMIT Internal Medicine; ATTEND Family Medicine
DX: J44.1 Chronic obstructive pulmonary disease with (acute) exacerbation (principal); I48.91 Unspecified atrial fibrillation; I25.10 Atherosclerotic heart disease of native coronary artery without angina pectoris; I10 Essential (primary) hypertension; E11.9 Type 2 diabetes mellitus without complications; E78.00 Pure hypercholesterolemia, unspecified; I73.9 Peripheral vascular disease, unspecified; K21.9 Gastro-esophageal reflux disease without esophagitis; E03.9 Hypothyroidism, unspecified; M81.0 Age-related osteoporosis without current pathological fracture; Z85.118 Personal history of other malignant neoplasm of bronchus and lung; Z99.81 Dependence on supplemental oxygen; Z79.82 Long term (current) use of aspirin; Z79.84 Long term (current) use of oral hypoglycemic drugs; Z87.891 Personal history of nicotine dependence; Z95.1 Presence of aortocoronary bypass graft; Z95.5 Presence of coronary angioplasty implant and graft; Z95.820 Peripheral vascular angioplasty status with implants and grafts; Z92.21 Personal history of antineoplastic chemotherapy; Z92.3 Personal history of irradiation
CPT/HCPCS: 36415; 36600; 71045; 71046; 80048; 80053; 82805; 83735; 83880; 84484; 85007; 85025; 85027; 85610; 85730; 93005; 93041; 94640; 94664; 94760; G0378

== ENCOUNTER 2017-12-12 04:00 | Inpatient (IN) | payer MEDICARE, OTHER ==
[~2017-12-12] VITALS: Ht 154.9 cm; Wt 46.3 kg
[2017-12-12] VITALS (13 sets, daily range): BP systolic 126–183; BP diastolic 68–95
[~2017-12-12 04:00] MED LIST changes: +CALC-250 PO; +CALC-823 PO; +POTA10CA68 PO
[2017-12-12] MEDS ORDERED: RT-ALBUTEROL/IPRATROPIUM 3 ML (DUONEB) VIAL INH ONE (04:15)
[2017-12-12 04:28] LABS: HEMATOCRIT 38 % (35-52); HEMOGLOBIN 11.5 G/DL (11.5-16.0); MEAN CORPUSCULAR HEMOGLOBIN 31 PG (25-34); MEAN CORPUSCULAR HGB CONC 30 G/DL (32-36); MEAN CORPUSCULAR VOLUME 102 FL (80-99); PLATELET COUNT 292 10^3/uL (130-400); RED BLOOD COUNT 3.72 10^6/uL (4.35-5.85); RED CELL DISTRIBUTION WIDTH 15.5 % (10.0-14.5); WHITE BLOOD COUNT 7.8 10^3/uL (4.3-11.0)
[2017-12-12 04:29] LABS: BASOPHILS % (AUTO) 0 % (0-10); EOSINOPHILS # (AUTO) 0.2 10^3/uL (0.0-0.3); EOSINOPHILS % (AUTO) 2 % (0-10); LYMPHOCYTES # (AUTO) 1.2 X 10^3 (1.0-4.0); LYMPHOCYTES % (AUTO) 15 % (12-44); MEAN PLATELET VOLUME 9.9 FL (7.4-10.4); MONOCYTES % (AUTO) 13 % (0-12); NEUTROPHILS # (AUTO) 5.4 X 10^3 (1.8-7.8); NEUTROPHILS % (AUTO) 70 % (42-75)
[2017-12-12 04:32] LABS: BILIRUBIN,URINE NEGATIVE (NEGATIVE); CLARITY,URINE CLEAR; COLOR,URINE YELLOW; GLUCOSE, URINE (UA) NEGATIVE (NEGATIVE); KETONES,URINE NEGATIVE (NEGATIVE); LEUKOCYTE ESTERASE ,URINE NEGATIVE (NEGATIVE); NITRITE,URINE NEGATIVE (NEGATIVE); PH,URINE 6 (5-9); PROTEIN,URINE 1+ (NEGATIVE); UROBILINOGEN,URINE NORMAL (NORMAL)
[2017-12-12 04:40] LABS: ALANINE AMINOTRANSFERASE 19 U/L (0-55); ALBUMIN 3.6 GM/DL (3.2-4.5); ALKALINE PHOSPHATASE 61 U/L (40-136); BILIRUBIN,TOTAL 0.4 MG/DL (0.1-1.0); BUN/CREATININE RATIO 25; CARBON DIOXIDE 44 MMOL/L (21-32); CHLORIDE 90 MMOL/L (98-107); CREATINE KINASE 31 U/L (29-168); CREATININE SERUM 0.72 MG/DL (0.60-1.30); GFR ESTIMATED > 60; GLUCOSE 179 MG/DL (70-105); POTASSIUM 4.6 MMOL/L (3.6-5.0); SODIUM 141 MMOL/L (135-145); TOTAL PROTEIN 6.6 GM/DL (6.4-8.2)
[2017-12-12 04:54] LABS: BACTERIA,URINE TRACE /HPF
[2017-12-12 04:55] LABS: SQUAMOUS EPITHELIAL CELL,UR RARE /HPF
[2017-12-12 05:00] LABS: FREE T4 (FREE THYROXINE) 1.15 NG/DL (0.70-1.48)
--- NOTE | 2017-12-12 05:46 | ED Fall/Injury ---
General Chief Complaint: Trauma-Non Activation Stated Complaint: FALL Nursing Triage Note: PT REPORTS SHE WAS WALKING TO HER BATHROOM WHEN SHE TRIPPED OVER HER 02 CORD. Source: patient, EMS, [facility] records, old records Exam Limitations: no limitations History of Present Illness Date Seen by Provider: Dec 12, 2017 Time Seen by Provider: 04:01 Initial Comments 72-year-old woman presents to the emergency room via EMS after having a fall at [facility] where she lives. She was getting up to use the restroom. She had just been dismissed from the hospital yesterday after being treated for COPD exacerbation. Patient uses oxygen supplementation at all times. Patient seems a little confused and less alert from her baseline per the respiratory therapist who is familiar with her from prior admission. Patient complains of bilateral wrist pain and pain in the face. She has obvious injury to the bridge of her nose. Fall was unwitnessed and there was no known loss of consciousness. Pediatric c-collar was applied during assessment. Location Injury Occurred: [facility]HR[facility] Allergies and Home Medications Allergies Coded Allergies: Penicillins (Verified Allergy, Severe, ANAPHYLAXIS, 09/04/16) hydrochlorothiazide (Verified Allergy, Intermediate, RASH, 01/29/17) penicillin G (Verified Allergy, Unknown, 09/04/16) Home Medications Albuterol Sulfate 2.5 Mg/3 Ml Vial.neb, 2.5 MG NEB Q6H PRN for SHORTNESS OF BREATH, (Reported) Alendronate Sodium 70 Mg Tablet, 70 MG PO SATURDAY, (Reported) Apixaban 2.5 Mg Tablet, 2.5 MG PO BID, (Reported) Aspirin 81 Mg Tablet.dr, 81 MG PO DAILY, (Reported) Atorvastatin Calcium 40 Mg Tablet, 40 MG PO HS, (Reported) Calcium Carbonate 500 Mg Tablet, 500 MG PO BID, (Reported) Cetirizine HCl 10 Mg Tablet, 10 MG PO HS, (Reported) Cholecalciferol 5,000 Unit Capsule, 2,000 UNIT PO DAILY, (Reported) Diltiazem HCl 240 Mg Cap.er.24h, 240 MG PO DAILY, (Reported) Furosemide 20 Mg Tablet, 20 MG PO DAILY, (Reported) Levothyroxine Sodium 50 Mcg Tablet, 50 MCG PO DAILY, (Reported) Metformin HCl 500 Mg Tablet, 500 MG PO BID WITH MEALS, (Reported) Metoprolol Tartrate 50 Mg Tablet, 50 MG PO BID, (Reported) Multivits,Stress Formula 1 Each Tablet, 1 TAB PO DAILY, (Reported) Pantoprazole Sodium 40 Mg Tablet.dr, 40 MG PO DAILY, (Reported) Potassium Chloride 10 Meq Capsule.er, 10 MEQ PO DAILY, (Reported) Promethazine HCl/Codeine 118 Ml Syrup, 10 ML PO TID PRN for COUGH, (Reported) Patient Home Medication List Home Medication List Reviewed: Yes Review of Systems Review of Systems Constitutional: no symptoms reported Eyes: No Symptoms Reported Ears, Nose, Mouth, Throat: see HPI Respiratory: see HPI Cardiovascular: no symptoms reported Gastrointestinal: no symptoms reported Genitourinary: no symptoms reported : No Musculoskeletal: see HPI Skin: see HPI Psychiatric/Neurological: See HPI Past [id number]-Fduvtb Hx Past Med/Social Hx: Reviewed and Corrections made Patient Social History Alcohol Use: Denies Use Recreational Drug Use: No Smoking Status: Former Smoker Type Used: Cigarettes Former Smoker, Quit: Jan 28, 2013 Recent Foreign Travel: No Contact w/Someone Who Travel: No Recent Infectious Disease Expo: No Recent Hopitalizations: No Physical Abuse: No Sexual Abuse: No Immunizations Up To Date Tetanus Booster (TDap): Unknown PED Vaccines UTD: Yes Date of Pneumonia Vaccine: Jan 07, 2016 Date of Influenza Vaccine: Jan 06, 2017 Seasonal Allergies Seasonal Allergies: Yes Past Medical History Surgeries: Yes Cardiac, CABG, Coronary Stent, Lobectomy, Orthopedic, Vascular Surgery Respiratory: Yes (chronic hypoxia) Pneumonia, Chronic Bronchitis, COPD Currently Using CPAP: No Currently Using BIPAP: No Cardiac: Yes Atrial Fibrillation, Coronary Artery Disease, High Cholesterol, Hypertension, Peripheral Vascular Neurological: No : No Reproductive Disorders: Yes (26 YRS. 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 Sexually Transmitted Disease: No HIV/AIDS: No Genitourinary: No Gastrointestinal: Yes ("BUTTERFLY" HERNIA) Abdominal Hernia, Gastroesophageal Reflux Musculoskeletal: Yes (RIGHT HIP FX/ORIF) Osteoporosis, Arthritis, Fractures Endocrine: Yes Hypothyroidsim, Diabetes, Non-Insulin dep HEENT: Yes Cataract Loss of Vision: Denies Hearing Impairment: Denies Cancer: Yes Lung Did You Recieve Any Treatments: Yes What Type of Treatment Did You: Chemotherapy, Radiation, Surgical Intervention Psychosocial: Yes Anxiety Integumentary: No Blood Disorders: No Adverse Reaction/Blood Tranf: No Family Medical History Reviewed Nursing Family Hx Chest pain 09 SISTER Congestive heart failure G-MA Family history: Cardiovascular disease 03 FATHER (68) 09 SISTER Family history: Hypertension 03 FATHER 09 SISTER G-MA Stroke No Pertinent Family Hx Physical Exam Vital Signs Vital Signs - First Documented Capillary Refill : Less Than 3 Seconds Height, Weight, BMI Height: 5'1.00" Weight: 103lbs. 4.0oz. 46.130013ey; 19.1 BMI Method:Estimated General Appearance: WD/WN, no apparent distress HEENT: PERRL/EOMI, normal ENT inspection, other (no dental injury) Neck: normal inspection, other (c-collar in place) Cardiovascular: regular rate, rhythm, no edema, no murmur Respiratory: no respiratory distress, no accessory muscle use, accessory muscle use, rhonchi, wheezing Gastrointestinal: normal bowel sounds, non tender, soft Extremities: no pedal edema, other (bilateral wrist tenderness) Neurologic/Psychiatric: pre press proofer II-XII nml as tested, no motor/sensory deficits, alert, normal mood/affect, other (disoriented) Skin: normal color, warm/dry, ecchymosis (midface around the bridge of the nose ) [place] Coma Score Best Eye Response: (4) Open Spontaneously Best Verbal Response: (4) Confused Conversation Best Motor Response: (6) Obeys Commands [place] Total: 15 Progress/Results/Core Measures Results/Orders Lab Results Laboratory Tests Test 12/12/17 04:08 12/12/17 04:20 12/12/17 06:16 Range/Units White Blood Count 7.8 4.3-11.0 10^3/uL Red Blood Count 3.72 L 4.35-5.85 10^6/uL Hemoglobin 11.5 11.5-16.0 G/DL Hematocrit 38 35-52 % Mean Corpuscular Volume 102 H 80-99 FL Mean Corpuscular Hemoglobin 31 25-34 PG Mean Corpuscular Hemoglobin Concent 30 L 32-36 G/DL Red Cell Distribution Width 15.5 H 10.0-14.5 % Platelet Count 292 130-400 10^3/uL Mean Platelet Volume 9.9 7.4-10.4 FL Neutrophils (%) (Auto) 70 42-75 % Lymphocytes (%) (Auto) 15 12-44 % Monocytes (%) (Auto) 13 H 0-12 % Eosinophils (%) (Auto) 2 0-10 % Basophils (%) (Auto) 0 0-10 % Neutrophils # (Auto) 5.4 1.8-7.8 X 10^3 Lymphocytes # (Auto) 1.2 1.0-4.0 X 10^3 Monocytes # (Auto) 1.0 0.0-1.0 X 10^3 Eosinophils # (Auto) 0.2 0.0-0.3 10^3/uL Basophils # (Auto) 0.0 0.0-0.1 10^3/uL Sodium Level 141 135-145 MMOL/L Potassium Level 4.6 3.6-5.0 MMOL/L Chloride Level 90 L 98-107 MMOL/L Carbon Dioxide Level 44 H 21-32 MMOL/L Anion Gap 7 5-14 MMOL/L Blood Urea Nitrogen 18 7-18 MG/DL Creatinine 0.72 0.60-1.30 MG/DL Estimat Glomerular Filtration Rate > 60 BUN/Creatinine Ratio 25 Glucose Level 179 H 70-105 MG/DL Calcium Level 10.0 8.5-10.1 MG/DL Corrected Calcium 10.3 H 8.5-10.1 MG/DL Total Bilirubin 0.4 0.1-1.0 MG/DL Aspartate Amino Transf (AST/SGOT) 14 5-34 U/L Alanine Aminotransferase (ALT/SGPT) 19 0-55 U/L Alkaline Phosphatase 61 40-136 U/L Total Creatine Kinase 31 29-168 U/L Total Protein 6.6 6.4-8.2 GM/DL Albumin 3.6 3.2-4.5 GM/DL Thyroid Stimulating Hormone (TSH) 3.28 0.35-4.94 UIU/ML Free Thyroxine 1.14 0.70-1.48 NG/DL Urine Color YELLOW Urine Clarity CLEAR Urine pH 6 5-9 Urine Specific [place] 1.020 1.016-1.022 Urine Protein 1+ H NEGATIVE Urine Glucose (UA) NEGATIVE NEGATIVE Urine Ketones NEGATIVE NEGATIVE Urine Nitrite NEGATIVE NEGATIVE Urine Bilirubin NEGATIVE NEGATIVE Urine Urobilinogen NORMAL NORMAL MG/DL Urine Leukocyte Esterase NEGATIVE NEGATIVE Urine RBC (Auto) NEGATIVE NEGATIVE Urine RBC NONE /HPF Urine WBC NONE /HPF Urine Squamous Epithelial Cells RARE /HPF Urine Crystals NONE /LPF Urine Bacteria TRACE /HPF Urine Casts NONE /LPF Urine Mucus NEGATIVE /LPF Urine Culture Indicated NO Blood Gas Puncture Site RIGHT RAD Blood Gas Patient Temperature 97.1 Arterial Blood pH 7.36 L 7.37-7.43 Arterial Blood Partial Pressure CO2 83 *H 35-45 MMHG Arterial Blood Partial Pressure O2 70 L 79-93 MMHG Arterial Blood HCO3 47 *H 23-27 MMOL/L Arterial Blood Total CO2 49.5 H 21.0-31.0 MMOL/L Arterial Blood Oxygen Saturation 94 94-100 % Arterial Blood Base Excess 20.1 H -2.5-2.5 MMOL/L Bruce Test POSITIVE Blood Gas Ventilator Setting NO Blood Gas Inspired Oxygen 4L My Orders Orders - WILNER ZUNIGA MD Cbc With Automated Diff (12/12/17 04:07) Comprehensive Metabolic Panel (12/12/17 04:07) Creatine Kinase (12/12/17 04:07) Thyroid Stimulating Hormone (12/12/17 04:07) Ua Culture If Indicated (12/12/17 04:07) Ct Head/Face/Cervical Wo (12/12/17 04:07) Saline Lock/Iv-Start (12/12/17 04:07) Ekg Tracing (12/12/17 04:07) Monitor-Rhythm Ecg Trace Only (12/12/17 04:07) Chest 1 View, Ap/Pa Only (12/12/17 04:07) Pelvis (12/12/17 04:07) Free T4 (Free Thyroxine) (12/12/17 04:07) Catheter(Urinary) Care .0300, 1500 (12/12/17 04:07) Albuterol/Ipra Inhalation Soln (Duoneb I (12/12/17 04:15) Svn Small Volume Nebulizer (12/12/17 04:07) Wrist,Bilat,3 Views Or More (12/12/17 04:10) Free T4 (Free Thyroxine) (12/12/17 05:22) Thyroid Stimulating Hormone (12/12/17 05:22) Ct Chest/Abdomen/Pelvis W (12/12/17 05:25) Arterial Blood Gas (12/12/17 06:00) Iohexol Injection (Omnipaque 350 Mg/Ml 1 (12/12/17 06:30) Sodium Chloride Flush (Catheter Flush Sy (12/12/17 06:30) Pharmacy Communication (Pharmacy Communi (12/12/17 06:26) Medications Given in ED Current Medications Medications Dose Ordered Sig/Imelda Route Start Time Stop Time Status Last Admin Dose Admin Albuterol/ Ipratropium 3 ml ONCE ONCE INH 12/12/17 04:15 12/12/17 04:16 DC 12/12/17 04:19 3 ML Iohexol 100 ml ONCE ONCE IV 12/12/17 06:30 12/12/17 06:31 DC 12/12/17 06:30 100 ML Sodium Chloride 10 ml NEEDED PRN IV 12/12/17 06:30 12/12/17 06:30 10 ML Vital Signs/I&O 12/12/17 12/12/17 12/12/17 12/12/17 04:00 04:00 04:20 05:03 Temp 97.2 97.2 Pulse 74 74 Resp 19 19 B/P (MAP) 190/104 (132) 190/104 (132) Pulse Ox 95 95 94 95 O2 Delivery Nasal Cannula Nasal Cannula Nasal Cannula OxyMask O2 Flow Rate 4.00 4.00 4.00 Blood Pressure Mean: 132 Progress Progress Note #1: Time: 06:12 Progress Note Labs and urinalysis reviewed. CT of the head and cervical spine viewed and [employer] reports reviewed. There were no acute injuries identified. Bilateral wrist x-rays reviewed and bilateral wrist fractures were identified. Due to too long bone fractures identified, patient is being sent back to CT for evaluation of the chest, abdomen and pelvis. Risks will be splinted with adapted Colles' splints. Patient is not in significant pain at this time. DuoNeb treatment was administered which improved her breathing. Mental status improved after DuoNeb as well. ABG is pending. Progress Note #2: Time: 07:38 Progress Note Patient was found to have no additional injuries on the CT of the chest, abdomen and pelvis. She has a problematic situation. She would benefit from positive pressure ventilation but is generally not compliant and is sometimes not even compliant with her nasal cannula. Additionally, she would not be able to manage positive pressure ventilation well with bilateral wrist splints. Case was discussed with Dr. Mccauley who agrees with admission for observation. We will have care management assess her admission status to determine if inpatient status is appropriate. I have consulted Dr. Rodriguez as trauma surgeon due to presence of [address] Gibson was consulted by phone. He viewed the images and agrees with bilateral splinting. A consult was placed on the chart but he might not see the patient in person as outpatient follow-up will be sufficient for these injuries. He will be available if needed for further assessment or status changes. Sugar tong splints were not applied as bilateral sugar tong's would be quite restrictive to the patient's mobility. Colles' splints were adapted by bending them for appropriate fit and were applied bilaterally. Patient has notable chronic hypercarbia. Dr. Dubois was consulted for advice regarding her COPD. I discussed CODE STATUS with the patient and her son. She wishes to have a DO NOT RESUSCITATE status. Initial ECG Impression Date: Dec 12, 2017 Initial ECG Impression Time: 04:12 Initial ECG Rate: 74 Initial ECG Rhythm: Normal Sinus Comment Normal sinus rhythm with no ST elevation or depression. No significant changes in intervals or axis deviation. Diagnostic Imaging Diagonstic Imaging: Xray Plain Films/CT/US/NM/MRI: chest Comments Chest x-ray viewed by me. Report not yet available. There are chronic changes including pulmonary nodules, hyperinflation and interstitial markings with no acute changes from prior. Diagonstic Imaging: Xray Plain Films/CT/US/NM/MRI: other (bilateral wrists) Comments X-rays of the bilateral wrist viewed by me. Report not yet available. There are fractures of the distal left radius and ulnar styloid. There is a fracture of the distal right radius with extension into the articular surface. Diagonstic Imaging: CT Plain Films/CT/US/NM/MRI: chest, abdomen, pelvis Comments CT chest, abdomen and pelvis viewed by me and report reviewed. See report below : NAME: JUAN FRANCISCO [facility] REC#: [id number] PT STATUS: REG ER : 1945 PHYSICIAN: WILNER ZUNIGA MD ADMIT DATE: 12/12/17/ER Draft Date of Exam:12/12/17 CT CHEST/ABDOMEN/PELVIS W PROCEDURE: CT chest, abdomen, and pelvis with contrast. TECHNIQUE: Multiple contiguous axial images were obtained through the chest, abdomen, and pelvis after the administration of intravenous contrast. INDICATION: Injury from a fall. There are emphysematous changes in the lungs. There are no infiltrates, effusions or pneumothoraces. There is aortic atherosclerosis but no aneurysm, dissection or rupture. There are old bilateral impacted humeral neck fractures. There are no acute displaced rib fractures seen. Liver appears to be intact. Gallbladder is present. Pancreas is normal. Spleen is intact. Right kidney appears normal. Left kidney is severely atrophied. There is aortic atherosclerosis but no aneurysm. Intestines are unremarkable. Urinary bladder is decompressed with a Lai catheter. There is an old healed fracture of the right hip. There is no intraperitoneal free air or free fluid. IMPRESSION: No acute abnormality seen in the abdomen or pelvis. There are compression fractures of T8, T9, T10, T11, T12, L1, L2 and L5. Age of these fractures is indeterminate. MRI would be sensitive to determine if any of these are acute fractures. Dictated on workstation # [id number] Dict: 12/12/1730 Trans: 12/12/17 0639 [facility] [id number] Interpreted by: JUVENTINO CONCEPCION MD Departure Communication (Admissions) Time/Spoke to Admitting Phy: 06:52 Dr. Alexandra Rodriguez at 07:01 Dr. Dubois at 07:03 Dr. iGbson at 07:15 Impression Primary Impression: Wrist fracture, bilateral Qualified Codes: S62.101A - Fracture of unspecified carpal bone, right wrist, initial encounter for closed fracture; S62.102A - Fracture of unspecified carpal bone, left wrist, initial encounter for closed fracture Additional Impressions: Facial contusion Qualified Codes: S00.83XA - Contusion of other part of head, initial encounter Fall on same level Qualified Codes: W18.30XA - Fall on same level, unspecified, initial encounter COPD exacerbation Chronic respiratory failure with hypoxia and hypercapnia Disposition: ADMITTED INPATIENT Condition: Improved Admissions Decision to Admit Reason: Admit from ER (Trauma) Decision to Admit/Date: Dec 12, 2017 Time/Decision to Admit Time: 06:00 Departure-Patient Inst. Referrals: WEST MCCAULEY DO (PCP/Family) Primary Care Physician Copy Copies To 1: WEST MCCAULEY JOSHUA T MD Dec 12, 2017 05:46
[2017-12-12 05:59] LABS: FREE T4 (FREE THYROXINE) 1.14 NG/DL (0.70-1.48)
[2017-12-12 06:25] LABS: ABG BASE EXCESS 20.1 MMOL/L (-2.5-2.5); ABG OXYGEN SATURATION 94 % (94-100); ABG PH 7.36 (7.37-7.43); ABG PO2 70 MMHG (79-93); ABG TCO2 49.5 MMOL/L (21.0-31.0)
[2017-12-12 06:28] LABS: ABG PCO2 83 MMHG (35-45); ALLENS TEST POSITIVE
[2017-12-12 06:29] LABS: INSPIRED O2 4L; PATIENT TEMP 97.1; VENTILATOR NO
[2017-12-12] MEDS ORDERED: IOHEXOL 350 MG/ML 100 ML (OMNIPAQUE 350) VIAL IV ONE (06:30)
[2017-12-12] MEDS ORDERED: CATHETER FLUSH 10 ML SYR IV PRN ×2 (06:30→09:45)
--- NOTE | 2017-12-12 06:40 | Diagnostic Imaging Report ---
PROCEDURE: CT chest, abdomen, and pelvis with contrast. TECHNIQUE: Multiple contiguous axial images were obtained through the chest, abdomen, and pelvis after the administration of intravenous contrast. INDICATION: Injury from a fall. There are emphysematous changes in the lungs. There are no infiltrates, effusions or pneumothoraces. There is aortic atherosclerosis but no aneurysm, dissection or rupture. There are old bilateral impacted humeral neck fractures. There are no acute displaced rib fractures seen. Liver appears to be intact. Gallbladder is present. Pancreas is normal. Spleen is intact. Right kidney appears normal. Left kidney is severely atrophied. There is aortic atherosclerosis but no aneurysm. Intestines are unremarkable. Urinary bladder is decompressed with a Lai catheter. There is an old healed fracture of the right hip. There is no intraperitoneal free air or free fluid. IMPRESSION: No acute abnormality seen in the abdomen or pelvis. There are compression fractures of T8, T9, T10, T11, T12, L1, L2 and L5. Age of these fractures is indeterminate. MRI would be sensitive to determine if any of these are acute fractures. Dictated by: Dictated on workstation # [id number]
--- NOTE | 2017-12-12 06:47 | Diagnostic Imaging Report ---
PROCEDURE: CT head, face, and cervical spine without contrast. TECHNIQUE: Multiple contiguous axial images were obtained through the head, neck, and facial bones without the use of intravenous contrast. Sagittal and coronal reformations through the cervical spine and facial bones were also performed. INDICATION: Facial trauma from a fall CT HEAD: The ventricles are normal in size, shape and position. There are no masses or hemorrhages. There are no extra-axial fluid collections. IMPRESSION: No acute abnormality seen in the head. CT cervical spine: There is a grade 1 spondylolisthesis at C3-4 and C4-5. There is advanced degenerative disc change at C5-6. There is additional slight spondylolisthesis of C6-7 and C7-T1. There is hypertrophic degenerative change of the facet joints bilaterally. There is no acute fracture seen. IMPRESSION: Diffuse degenerative changes of the cervical spine primarily involving the facets with disc changes at C5-6. No acute abnormality seen CT facial bones: The mandible appears to be grossly intact. There are no displaced nasal bone fractures. Orbital rims and mejia appear to be intact. There are no displaced nasal bone fractures. Paranasal sinuses are clear. IMPRESSION: No acute facial bone fractures seen. Dictated by: Dictated on workstation # [id number]
--- NOTE | 2017-12-12 06:48 | Diagnostic Imaging Report ---
INDICATION: Shortness of breath, lung cancer Portable chest 4:54 AM There are postop changes from CABG surgery. There is some hilar prominence on the right. There is no infiltrate, effusion or pneumothorax. IMPRESSION: Postop changes of the chest. There is a right hilar fullness which may be atelectasis. Patient has old bilateral proximal humerus fractures. Dictated by: Dictated on workstation # [id number]
--- NOTE | 2017-12-12 06:49 | Diagnostic Imaging Report ---
INDICATION: Injury from a fall AP view pelvis shows postop changes from internal fixation of the right hip with a healed intertrochanteric fracture. Left hip is unremarkable. Pelvic ring is intact. There are bilateral iliac stents. IMPRESSION: No acute pelvic fracture seen. Dictated by: Dictated on workstation # [id number]
--- NOTE | 2017-12-12 06:53 | Diagnostic Imaging Report ---
INDICATION: Bilateral wrist injury from a fall 3 views of each wrist are obtained. There is an impacted fracture of the distal radius at the level of the epiphyseal scar with slight dorsal impaction. There is an associated ulnar styloid fracture. In the right wrist there also appears to be a slightly impacted fracture of the distal radius and a longitudinal fracture along the ulnar side of the distal radius extending to the articular surface. There is a nondisplaced ulnar styloid fracture. IMPRESSION: Bilateral distal radius fractures with associated ulnar styloid fractures. Dictated by: Dictated on workstation # [id number]
--- NOTE | 2017-12-12 08:22 | History & Physicial ---
History of Present Illness History of Present Illness Reason for visit/HPI Patient recently discharged from hospital. Patient in assisted living. Patient found on floor outside her bedroom. Patient fractured both wrists. Patient landed on her face. Patient has COPD. Patient has history of lung cancer. Patient admitted Date of Admission Dec 12, 2017 at 07:06 Time Seen by Provider: 08:10 I consulted on this patient on 12/12/17 08:18 Attending Physician Sanju Mccauley DO Admitting Physician Sanju Mccauley DO Consult Allergies and Home Medications Allergies Coded Allergies: Penicillins (Verified Allergy, Severe, ANAPHYLAXIS, 09/04/16) hydrochlorothiazide (Verified Allergy, Intermediate, RASH, 01/29/17) penicillin G (Verified Allergy, Unknown, 09/04/16) Home Medications Albuterol Sulfate 2.5 Mg/3 Ml Vial.neb, 2.5 MG NEB Q6H PRN for SHORTNESS OF BREATH, (Reported) Alendronate Sodium 70 Mg Tablet, 70 MG PO SATURDAY, (Reported) Apixaban 2.5 Mg Tablet, 2.5 MG PO BID, (Reported) Aspirin 81 Mg Tablet.dr, 81 MG PO DAILY, (Reported) Atorvastatin Calcium 40 Mg Tablet, 40 MG PO HS, (Reported) Calcium Carbonate 500 Mg Tablet, 500 MG PO BID, (Reported) Cetirizine HCl 10 Mg Tablet, 10 MG PO HS, (Reported) Cholecalciferol 5,000 Unit Capsule, 2,000 UNIT PO DAILY, (Reported) Diltiazem HCl 240 Mg Cap.er.24h, 240 MG PO DAILY, (Reported) Furosemide 20 Mg Tablet, 20 MG PO DAILY, (Reported) Levothyroxine Sodium 50 Mcg Tablet, 50 MCG PO DAILY, (Reported) Metformin HCl 500 Mg Tablet, 500 MG PO BID WITH MEALS, (Reported) Metoprolol Tartrate 50 Mg Tablet, 50 MG PO BID, (Reported) Multivits,Stress Formula 1 Each Tablet, 1 TAB PO DAILY, (Reported) Pantoprazole Sodium 40 Mg Tablet.dr, 40 MG PO DAILY, (Reported) Potassium Chloride 10 Meq Capsule.er, 10 MEQ PO DAILY, (Reported) Promethazine HCl/Codeine 118 Ml Syrup, 10 ML PO TID PRN for COUGH, (Reported) Patient Home Medication List Home Medication List Reviewed: No Past Lgbygjk-Eqadvr-Tzwkbs Hx Patient Social History Alcohol Use: Denies Use Recreational Drug Use: No Smoking Status: Former Smoker Former Smoker, Quit: Jan 28, 2013 Type Used: Cigarettes Recent Foreign Travel: No Contact w/other who traveled: No Recent Hopitalizations: No Recent Infectious Disease Expo: No Immunizations Up To Date Tetanus Booster (TDap): Unknown Pediatric: Yes Date of Pneumonia Vaccine: Jan 07, 2016 Date of Influenza Vaccine: Jan 06, 2017 Seasonal Allergies Seasonal Allergies: Yes Surgeries Yes Cardiac, CABG, Coronary Stent, Lobectomy, Orthopedic, Vascular Surgery Respiratory Yes (chronic hypoxia) COPD, Pneumonia Currently Using CPAP: No Currently Using BIPAP: No Cardiovascular Yes Atrial Fibrillation, Coronary Artery Disease, High Cholesterol, Hypertension, Peripheral Vascular Neurological No Reproductive System : No Hx Reproductive Disorders: Yes (26 YRS. 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 Genitourinary No Gastrointestinal Yes ("BUTTERFLY" HERNIA) Abdominal Hernia, Gastroesophageal Reflux Musculoskeletal Yes (RIGHT HIP FX/ORIF) Osteoporosis, Arthritis, Fractures Endocrine History of Endocrine Disorders: Yes Endocrine Disorders: Hypothyroidsim, Diabetes, Non-Insulin dep HEENT History of HEENT Disorders: Yes HEENT Disorders: Cataract Loss of Vision: Denies Hearing Impairment: Denies Cancer Yes Lung Did You Recieve Any Treatments: Yes Type of Treatment: Chemotherapy, Radiation, Surgical Intervention Psychosocial History of Psychiatric Problem: Yes Behavioral Health Disorders: Anxiety Integumentary History of Skin or Integumenta: No Blood Transfusions History of Blood Disorders: No Adverse Reaction to a Blood Tr: No Family Medical History Significant Family History: No Pertinent Family Hx Family Hx: Chest pain 09 SISTER Congestive heart failure G-MA Family history: Cardiovascular disease 03 FATHER (68) 09 SISTER Family history: Hypertension 03 FATHER 09 SISTER G-MA Stroke Review of Systems Constitutional: weakness, other (All) EENTM: no symptoms reported, other (Landed on face and nose) Respiratory: short of breath Gastrointestinal: no symptoms reported Genitourinary: no symptoms reported Physical Exam Vital Signs Vital Signs - First Documented Capillary Refill : Less Than 3 Seconds Height, Weight, BMI Height: 5'1.00" Weight: 103lbs. 4.0oz. 46.661754lb; 19.1 BMI Method:Estimated General Appearance: No Apparent Distress, Thin Eyes: Bilateral Eye Normal Inspection HEENT: Other (Knows red) Neck: Normal Inspection, Non Tender Respiratory: No Accessory Muscle Use, No Respiratory Distress, Decreased Breath Sounds Cardiovascular: Regular Rate, Rhythm, No Murmur Gastrointestinal: Non Tender, Soft Assessment/Plan Assessment and Plan Fracture of both wrists. Hypercapnia. COPD. Lung cancer. CAD Admission Diagnosis Admission Status: Observation SANJU MCCAULEY DO Dec 12, 2017 08:21
--- NOTE | 2017-12-12 09:02 | Pulmonary Consultation ---
History of Present Illness History of Present Illness Date of Consultation 12/12/17 09:00 Time Seen by Provider: 09:44 Date of Admission History of Present Illness 72yo with hx of severe oxygen dependent COPD, lung cancer discharged from hospital yesterday after treatment for COPDAE. presented from [facility] s/p unwitnessed fall while ambulating to restroom. No loss of consciousness. She does have a hx of falles. PT was confused while in the ED. I am consulted for pulmonary management. Allergies and Home Medications Allergies Coded Allergies: Penicillins (Verified Allergy, Severe, ANAPHYLAXIS, 09/04/16) hydrochlorothiazide (Verified Allergy, Intermediate, RASH, 01/29/17) penicillin G (Verified Allergy, Unknown, 09/04/16) Home Medications Albuterol Sulfate 2.5 Mg/3 Ml Vial.neb, 2.5 MG NEB Q6H PRN for SHORTNESS OF BREATH, (Reported) Alendronate Sodium 70 Mg Tablet, 70 MG PO SATURDAY, (Reported) Apixaban 2.5 Mg Tablet, 2.5 MG PO BID, (Reported) Aspirin 81 Mg Tablet.dr, 81 MG PO DAILY, (Reported) Atorvastatin Calcium 40 Mg Tablet, 40 MG PO HS, (Reported) Calcium Carbonate 500 Mg Tablet, 500 MG PO BID, (Reported) Cetirizine HCl 10 Mg Tablet, 10 MG PO HS, (Reported) Cholecalciferol (Vitamin D3) 2,000 Unit Capsule, 2,000 UNIT PO DAILY, (Reported) Diltiazem HCl 240 Mg Cap.er.24h, 240 MG PO DAILY, (Reported) Furosemide 20 Mg Tablet, 20 MG PO DAILY, (Reported) Levothyroxine Sodium 50 Mcg Tablet, 50 MCG PO DAILY, (Reported) Metformin HCl 500 Mg Tablet, 500 MG PO BID WITH MEALS, (Reported) Metoprolol Tartrate 50 Mg Tablet, 50 MG PO BID, (Reported) Multivits,Stress Formula 1 Each Tablet, 1 TAB PO DAILY, (Reported) Pantoprazole Sodium 40 Mg Tablet.dr, 40 MG PO DAILY, (Reported) Potassium Chloride 10 Meq Capsule.er, 10 MEQ PO DAILY, (Reported) Promethazine HCl/Codeine 118 Ml Syrup, 10 ML PO TID PRN for COUGH, (Reported) Past Nksztlj-Mintmy-Djtqfu Hx Past Med/Social Hx: Reviewed and Corrections made Patient Social History Alcohol Use: Denies Use Recreational Drug Use: No Smoking Status: Former Smoker Type Used: Cigarettes Former Smoker, Quit: Jan 28, 2013 Recent Foreign Travel: No Contact w/Someone Who Travel: No Recent Infectious Disease Expo: No Recent Hopitalizations: No Physical Abuse: No Sexual Abuse: No Immunizations Up To Date Tetanus Booster (TDap): Unknown PED Vaccines UTD: Yes Date of Pneumonia Vaccine: Jan 07, 2016 Date of Influenza Vaccine: Jan 06, 2017 Seasonal Allergies Seasonal Allergies: Yes Past Medical History Surgeries: Yes Cardiac, CABG, Coronary Stent, Lobectomy, Orthopedic, Vascular Surgery Respiratory: Yes (chronic hypoxia) Pneumonia, Chronic Bronchitis, COPD Currently Using CPAP: No Currently Using BIPAP: No Cardiac: Yes Atrial Fibrillation, Coronary Artery Disease, High Cholesterol, Hypertension, Peripheral Vascular Neurological: No : No Reproductive Disorders: Yes (26 YRS. 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 Sexually Transmitted Disease: No HIV/AIDS: No Genitourinary: No Gastrointestinal: Yes ("BUTTERFLY" HERNIA) Abdominal Hernia, Gastroesophageal Reflux Musculoskeletal: Yes (RIGHT HIP FX/ORIF) Osteoporosis, Arthritis, Fractures Endocrine: Yes Hypothyroidsim, Diabetes, Non-Insulin dep HEENT: Yes Cataract Loss of Vision: Denies Hearing Impairment: Denies Cancer: Yes Lung Did You Recieve Any Treatments: Yes What Type of Treatment Did You: Chemotherapy, Radiation, Surgical Intervention Psychosocial: Yes Anxiety Integumentary: No Blood Disorders: No Adverse Reaction/Blood Tranf: No Family Medical History Reviewed Nursing Family Hx Chest pain 09 SISTER Congestive heart failure G-MA Family history: Cardiovascular disease 03 FATHER (68) 09 SISTER Family history: Hypertension 03 FATHER 09 SISTER G-MA Stroke No Pertinent Family Hx Review of Systems Time Seen by Provider: 09:50 Constitutional: Weakness, Malaise; No: Fever, Chills, Sweats, Other Eyes: No: Pain, Vision change, Conjunctivae inflammation, Eyelid inflammation, Other, Redness ENT: Nose congestion Respiratory: Cough, Dry, Shortness of breath, SOB with excertion; No: Wheezing , Sputum Cardiovascular: No: Palpitations, Paroxysmal Noc. Dyspnea, Edema Gastrointestinal: No: Nausea, Vomiting, Diarrhea Neurological: Weakness Sepsis Event Evaluation Height, Weight, BMI Height: 5'1.00" Weight: 102lbs. 2.0oz. 46.537400iq; 19.3 BMI Method:Estimated Exam Exam Vital Signs Date Time Temp Pulse Resp B/P (MAP) Pulse Ox O2 Delivery O2 Flow Rate FiO2 12/12/17 08:25 98.3 82 18 180/82 (114) 96 Nasal Cannula 4.00 12/12/17 05:03 95 OxyMask 4.00 12/12/17 04:20 94 Nasal Cannula 4.00 12/12/17 04:00 97.2 74 19 190/104 (132) 95 Nasal Cannula 12/12/17 04:00 97.2 74 19 190/104 (132) 95 Nasal Cannula 4.00 Height & Weight Height: 5'1.00" Weight: 102lbs. 2.0oz. 46.712958lp; 19.3 BMI Method:Estimated General Appearance: No Apparent Distress, Thin HEENT: Other (Knows red) Neck: Normal Inspection, Non Tender Respiratory: No Accessory Muscle Use, No Respiratory Distress, Decreased Breath Sounds Cardiovascular: Regular Rate, Rhythm, No Murmur Capillary Refill: Less Than 3 Seconds Gastrointestinal: normal bowel sounds, non tender, soft Neurologic/Psychiatric: Alert, Oriented x3 Skin: Normal Color, Warm/Dry Results Lab Laboratory Tests 12/12/17 04:08 Assessment/Plan Assessment/Plan S/p fall with bilateral wrists fracture -Orthopedic surgery consulted -Transfer pt to ICU for close monitoring with addition of morphine and respiratory failure. COPDAE with chronic respiratory failure -Will use BiPAP PRN as tolerated. -Will place pt on endtidal C02 monitor -SVNs, advair -Prednisone hx of squamous cell lung cancer ALTAGRACIA MCPHERSON DO Dec 12, 2017 09:02
[2017-12-12] MEDS ORDERED: ONDANSETRON 4 MG/2 ML (SDV) Z0FRAN IV PRN (09:45)
[2017-12-12] MEDS ORDERED: RT-ALBUTEROL/IPRATROPIUM 3 ML (DUONEB) VIAL INH SCH (09:45)
[2017-12-12] MEDS: ACETAMINOPHEN 500 MG TAB (TYLENOL) PO PRN (10:06)
[2017-12-12] MEDS ORDERED: RT-ALBUTEROL/IPRATROPIUM 3 ML (DUONEB) VIAL INH PRN (10:15)
[2017-12-12] MEDS ORDERED: CHOL20002 PO (10:26)
[2017-12-12] MEDS ORDERED: morphine INJ 10 MG/ML 1ML (SYR OR VIAL) IVP NR (10:30)
[2017-12-12] MEDS: methylPREDNISolone 40 MG/ML (Solu-MEDROL) VIAL IV SCH ×3 (11:27→23:04)
[2017-12-12] MEDS: NS IV 1000 ML 1,000 ML IV SCH (11:27)
[2017-12-12] MEDS: RT-ALBUTEROL/IPRATROPIUM 3 ML (DUONEB) VIAL INH SCH ×3 (13:29→22:45)
[2017-12-12] MEDS: CATHETER FLUSH 10 ML SYR IV SCH ×2 (15:12→23:03)
[2017-12-12] MEDS: morphine INJ 4 MG/ML 1 ML (VIAL/SYRINGE) IVP PRN (15:19)
[2017-12-12] MEDS ORDERED: NON-FORMULARY MEDICATION 1 EA EA (Alendronate Sodium 70 MG) PO SCH (17:30)
[2017-12-12] MEDS ORDERED: PROMETHAZINE HCL PO PRN (17:30)
[2017-12-12] MEDS ORDERED: [UNRECOGNIZED DRUG - OTHER] PO PRN (17:30)
[2017-12-12] MEDS ORDERED: CODEINE PO PRN (17:30)
[2017-12-12] MEDS ORDERED: NON-FORMULARY MEDICATION 1 EA EA (Diltiazem HCl (Cartia Xt) 240 MG) PO SCH (17:30)
[2017-12-12] MEDS: DILTIAZEM 240 MG (CARDIZEM CD) CAP PO SCH (17:54)
[2017-12-12] MEDS: FUROSEMIDE 20 MG (LASIX) TAB PO SCH (17:54)
[2017-12-12] MEDS: meTOprolol TARTRATE 50 MG (LOPRESSOR) TAB PO SCH ×2 (17:54→21:48)
[2017-12-12] MEDS ORDERED: PROMETHAZINE/ CODEINE SYRUP 5 ML UDC PO PRN (18:15)
[2017-12-12] MEDS: RT-ADVAIR HFA 115/21 MCG PER PUFF IH SCH (19:19)
--- NOTE | 2017-12-12 20:34 | Consultation ---
History of Present Illness History of Present Illness Patient Consulted On(ricardo/time) 12/12/17 20:29 Time Seen by Provider: 17:05 History of Present Illness Surgery asked to consult regarding trauma activation, with bilateral radius fx. HPI per ED: 72-year-old woman presents to the emergency room via EMS after having a fall at [facility] where she lives. She was getting up to use the restroom. She had just been dismissed from the hospital yesterday after being treated for COPD exacerbation. Patient uses oxygen supplementation at all times. Patient seems a little confused and less alert from her baseline per the respiratory therapist who is familiar with her from prior admission. Patient complains of bilateral wrist pain and pain in the face. She has obvious injury to the bridge of her nose. Fall was unwitnessed and there was no known loss of consciousness. Pediatric c-collar was applied during assessment. Location Injury Occurred: [facility] BATHROOM Pt was seen and examined; denies any abdominal pain or headache. Her main complaint was of inability to get up out of bed. She was seen in ICU, had been transferred up from floor because O2 had dropped while she was sleeping. Allergies and Home Medications Allergies Coded Allergies: Penicillins (Verified Allergy, Severe, ANAPHYLAXIS, 09/04/16) hydrochlorothiazide (Verified Allergy, Intermediate, RASH, 01/29/17) penicillin G (Verified Allergy, Unknown, 09/04/16) Home Medications Albuterol Sulfate 2.5 Mg/3 Ml Vial.neb, 2.5 MG NEB Q6H PRN for SHORTNESS OF BREATH, (Reported) Alendronate Sodium 70 Mg Tablet, 70 MG PO SATURDAY, (Reported) Apixaban 2.5 Mg Tablet, 2.5 MG PO BID, (Reported) Aspirin 81 Mg Tablet.dr, 81 MG PO DAILY, (Reported) Atorvastatin Calcium 40 Mg Tablet, 40 MG PO HS, (Reported) Calcium Carbonate 500 Mg Tablet, 500 MG PO BID, (Reported) Cetirizine HCl 10 Mg Tablet, 10 MG PO HS, (Reported) Cholecalciferol (Vitamin D3) 2,000 Unit Capsule, 2,000 UNIT PO DAILY, (Reported) Diltiazem HCl 240 Mg Cap.er.24h, 240 MG PO DAILY, (Reported) Furosemide 20 Mg Tablet, 20 MG PO DAILY, (Reported) Levothyroxine Sodium 50 Mcg Tablet, 50 MCG PO DAILY, (Reported) Metformin HCl 500 Mg Tablet, 500 MG PO BID WITH MEALS, (Reported) Metoprolol Tartrate 50 Mg Tablet, 50 MG PO BID, (Reported) Multivits,Stress Formula 1 Each Tablet, 1 TAB PO DAILY, (Reported) Pantoprazole Sodium 40 Mg Tablet.dr, 40 MG PO DAILY, (Reported) Potassium Chloride 10 Meq Capsule.er, 10 MEQ PO DAILY, (Reported) Promethazine HCl/Codeine 118 Ml Syrup, 10 ML PO TID PRN for COUGH, (Reported) Patient Home Medication List Home Medication List Reviewed: Yes Past Qrhiznu-Jkdvkj-Rzmucx Hx Patient Social History Alcohol Use: Denies Use Recreational Drug Use: No Smoking Status: Former Smoker Former Smoker, Quit: Jan 28, 2013 Type Used: Cigarettes Recent Foreign Travel: No Contact w/Someone Who Travel: No Recent Infectious Disease Expo: No Recent Hopitalizations: No Physical Abuse Screen: No Sexual Abuse: No Immunizations Up To Date Tetanus Booster (TDap): Unknown PED Vaccines UTD: Yes Date of Pneumonia Vaccine: Jan 07, 2016 Date of Influenza Vaccine: Jan 06, 2017 Seasonal Allergies Seasonal Allergies: Yes Surgeries History of Surgeries: Yes Surgeries: Cardiac, CABG, Coronary Stent, Lobectomy, Orthopedic, Vascular Surgery Respiratory History of Respiratory Disorde: Yes (chronic hypoxia) Respiratory Disorders: Pneumonia, Chronic Bronchitis, COPD Cardiovascular History of Cardiac Disorders: Yes Cardiac Disorders: Atrial Fibrillation, Coronary Artery Disease, High Cholesterol, Hypertension, Peripheral Vascular Neurological History of Neurological Disord: No Reproductive System : No Hx Reproductive Disorders: Yes (26 YRS. 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 Genitourinary History of Genitourinary Disor: No Gastrointestinal History of Gastrointestinal Di: Yes ("BUTTERFLY" HERNIA) Gastrointestinal Disorders: Abdominal Hernia, Gastroesophageal Reflux Musculoskeletal History of Musculoskeletal Dis: Yes (RIGHT HIP FX/ORIF) Musculoskeletal Disorders: Osteoporosis, Arthritis, Fractures Endocrine History of Endocrine Disorders: Yes Endocrine Disorders: Hypothyroidsim, Diabetes, Non-Insulin dep HEENT History of HEENT Disorders: Yes HEENT Disorders: Cataract Loss of Vision: Denies Hearing Impairment: Denies Cancer History of Cancer: Yes Cancer: Lung Psychosocial History of Psychiatric Problem: Yes Behavioral Health Disorders: Anxiety Integumentary History of Skin or Integumenta: No Blood Transfusions History of Blood Disorders: No Adverse Reaction to a Blood Tr: No Family Medical History Significant Family History: No Pertinent Family Hx Family Medial History: Chest pain 09 SISTER Congestive heart failure G-MA Family history: Cardiovascular disease 03 FATHER (68) 09 SISTER Family history: Hypertension 03 FATHER 09 SISTER G-MA Stroke Review of Systems-General Constitutional: No chills, No diaphoresis; malaise EENTM: No blurred vision, No mouth pain, No mouth swelling, No epistaxis Respiratory: No cough, No hemoptysis, No phlegm; short of breath Cardiovascular: No chest pain, No edema, No palpitations Gastrointestinal: No abdominal pain, No constipation, No diarrhea Genitourinary: No dysuria, No frequency, No hematuria Musculoskeletal: back pain, joint pain, muscle pain, muscle stiffness, muscle cramps Skin: No change in color, No change in hair/nails Psychiatric/Neurological: Denies Anxiety, Denies Depressed, Denies Headache, Denies Tremors Physical Exam-General Problems Physical Exam Vital Signs Vital Signs - First Documented Capillary Refill : Less Than 3 SecondsLess Than 3 Seconds General Appearance: WD/WN, no apparent distress Eyes: Bilateral Eye PERRL, Bilateral Eye EOMI HEENT: pharynx normal; No scleral icterus (R), No scleral icterus (L), No pale conjunctivae (R), No pale conjunctivae (L) Neck: No non-tender; full range of motion, supple, normal inspection Respiratory: chest non-tender, no respiratory distress, no accessory muscle use , crackles Cardiovascular: regular rate, rhythm, no murmur Gastrointestinal: normal bowel sounds, non tender, soft, no organomegaly, no pulsatile mass Back: no CVA tenderness, no vertebral tenderness Extremities: other (bilateral arms in splints) 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, no motor/sensory deficits, alert, normal mood/affect, oriented x 3 Skin: normal color, warm/dry Lymphatic: no adenopathy (neck, axilla or groin) Data Review Labs Laboratory Tests 12/12/17 04:08: White Blood Count 7.8, Red Blood Count 3.72L, Hemoglobin 11.5, Hematocrit 38, Mean Corpuscular Volume 102H, Mean Corpuscular Hemoglobin 31, Mean Corpuscular Hemoglobin Concent 30L, Red Cell Distribution Width 15.5H, Platelet Count 292, Mean Platelet Volume 9.9, Neutrophils (%) (Auto) 70, Lymphocytes (%) (Auto) 15, Monocytes (%) (Auto) 13H, Eosinophils (%) (Auto) 2, Basophils (%) (Auto) 0, Neutrophils # (Auto) 5.4, Lymphocytes # (Auto) 1.2, Monocytes # (Auto) 1.0, Eosinophils # (Auto) 0.2, Basophils # (Auto) 0.0, Sodium Level 141, Potassium Level 4.6, Chloride Level 90L, Carbon Dioxide Level 44H, Anion Gap 7, Blood Urea Nitrogen 18, Creatinine 0.72, Estimat Glomerular Filtration Rate > 60, BUN/ Creatinine Ratio 25, Glucose Level 179H, Calcium Level 10.0, Corrected Calcium 10.3H, Total Bilirubin 0.4, Aspartate Amino Transf (AST/SGOT) 14, Alanine Aminotransferase (ALT/SGPT) 19, Alkaline Phosphatase 61, Total Creatine Kinase 31, Total Protein 6.6, Albumin 3.6, Thyroid Stimulating Hormone (TSH) 3.28, Free Thyroxine 1.14 12/12/17 04:20: Urine Color YELLOW, Urine Clarity CLEAR, Urine pH 6, Urine Specific [place] 1.020, Urine Protein 1+H, Urine Glucose (UA) NEGATIVE, Urine Ketones NEGATIVE, Urine Nitrite NEGATIVE, Urine Bilirubin NEGATIVE, Urine Urobilinogen NORMAL, Urine Leukocyte Esterase NEGATIVE, Urine RBC (Auto) NEGATIVE, Urine RBC NONE, Urine WBC NONE, Urine Squamous Epithelial Cells RARE, Urine Crystals NONE, Urine Bacteria TRACE, Urine Casts NONE, Urine Mucus NEGATIVE, Urine Culture Indicated NO 12/12/17 06:16: Blood Gas Puncture Site RIGHT RAD, Blood Gas Patient Temperature 97.1, Arterial Blood pH 7.36L, Arterial Blood Partial Pressure CO2 83*H, Arterial Blood Partial Pressure O2 70L, Arterial Blood HCO3 47*H, Arterial Blood Total CO2 49.5H, Arterial Blood Oxygen Saturation 94, Arterial Blood Base Excess 20.1H, Bruce Test POSITIVE, Blood Gas Ventilator Setting NO, Blood Gas Inspired Oxygen 4L Assessment/Plan Assessment/Plan Assessment/Plan Trauma Admit B/L radius fracture COPD Pt does not have any general or trauma surgical needs at this time. Maximum medical care. Will need to follow up with Orthopedics as an outpt. Clinical Quality Measures DVT/VTE Risk/Contraindication: Risk Factor Score Per Nursin RFS Level Per Nursing on Admit: 4+=Very High GRACE TARANGO DO Dec 12, 2017 20:34
[2017-12-12] MEDS ORDERED: NON-FORMULARY MEDICATION 1 EA EA (Cetirizine HCl 10 MG) PO SCH (21:00)
[2017-12-12] MEDS ORDERED: NON-FORMULARY MEDICATION 1 EA EA (Calcium Carbonate (Calcium) 500 MG) PO SCH (21:00)
[2017-12-12] MEDS: ATORVASTATIN 40 MG (LIPITOR) TABLET PO SCH (21:47)
[2017-12-12] MEDS: APIXABAN 2.5 MG (ELIQUIS) TABLET PO SCH (21:47)
[2017-12-12] MEDS: LORATADINE (CLARITIN) 10 MG TAB PO SCH (21:47)
[2017-12-13] VITALS (16 sets, daily range): BP systolic 106–165; BP diastolic 61–85
[2017-12-13] MEDS: NS IV 1000 ML 1,000 ML IV SCH ×2 (00:53→14:17)
[2017-12-13] MEDS: RT-ALBUTEROL/IPRATROPIUM 3 ML (DUONEB) VIAL INH SCH ×6 (02:38→22:13)
[2017-12-13 04:25] LABS: ABG BASE EXCESS 20.2 MMOL/L (-2.5-2.5); ABG OXYGEN SATURATION 95 % (94-100); ABG PCO2 69 MMHG (35-45); ABG PH 7.44 (7.37-7.43); ABG PO2 71 MMHG (79-93); ABG TCO2 48.3 MMOL/L (21.0-31.0)
[2017-12-13 04:28] LABS: INSPIRED O2 40%; PATIENT TEMP 97.9; VENTILATOR NO
[2017-12-13] MEDS: methylPREDNISolone 40 MG/ML (Solu-MEDROL) VIAL IV SCH ×4 (05:13→22:00)
[2017-12-13] MEDS: IBUPROFEN 600 MG (MOTRIN) TAB PO PRN (06:04)
[2017-12-13] MEDS: LEVOTHYROXINE 50 MCG (LEVOTHROID) TAB PO SCH (06:05)
[2017-12-13] MEDS: PANTOPRAZOLE 40 MG (PROTONIX) TAB PO SCH (06:11)
[2017-12-13] MEDS: CALCIUM CARBONATE 600 MG (CALCARB) TAB PO SCH ×2 (06:11→16:58)
[2017-12-13] MEDS: MULTIVIT W/MINERALS TAB (THERAGRAN M) PO SCH (06:12)
[2017-12-13] MEDS: KCL 10 MEQ TAB (MICRO K) PO SCH (06:12)
[2017-12-13] MEDS: CATHETER FLUSH 10 ML SYR IV SCH ×3 (06:16→20:36)
--- NOTE | 2017-12-13 06:17 | Pulmonary Progress Note ---
Subjective Time Seen by Provider: 06:17 Subjective/Events-last exam Pt denies SOB. She does complain of pain. Sepsis Event Evaluation Height, Weight, BMI Height: 5'1.00" Weight: 102lbs. 0.8oz. 46.555711ip; 19.3 BMI Method:Estimated Exam Exam Vital Signs Date Time Temp Pulse Resp B/P (MAP) Pulse Ox O2 Delivery O2 Flow Rate FiO2 12/13/17 06:11 OxyMask 5.00 12/13/17 06:00 83 19 146/81 (102) 90 OxyMask 5.00 12/13/17 05:00 82 17 106/61 (76) 94 OxyMask 5.00 12/13/17 04:40 77 28 94 40.00 12/13/17 04:00 66 20 141/75 (97) 93 OxyMask 5.00 12/13/17 04:00 97 NIV Bilevel 5.00 50 12/13/17 03:00 65 16 133/72 (92) 94 OxyMask 5.00 12/13/17 02:38 61 16 97 40.00 12/13/17 02:00 58 12 159/85 (109) 97 OxyMask 5.00 12/13/17 01:00 62 29 123/73 (90) 97 OxyMask 5.00 12/13/17 01:00 62 12/13/17 00:22 66 20 97 50.00 12/12/17 23:07 98.9 12/12/17 23:07 97 NIV Bilevel 5.00 50 12/12/17 22:45 62 16 95 50.00 12/12/17 22:00 68 15 149/73 (98) 94 OxyMask 5.00 12/12/17 21:00 69 16 126/68 (87) 97 OxyMask 5.00 12/12/17 20:00 74 16 159/80 (106) 97 OxyMask 5.00 12/12/17 19:59 79 12/12/17 19:39 94 Nasal Cannula 5.00 12/12/17 19:35 98.4 12/12/17 19:19 97 OxyMask 5.00 12/12/17 18:00 87 14 176/95 (122) 92 OxyMask 5.00 12/12/17 17:26 97.4 12/12/17 17:00 81 15 183/84 (117) 92 OxyMask 5.00 12/12/17 16:00 93 Nasal Cannula 4.00 12/12/17 16:00 105 17 170/95 (120) 92 OxyMask 5.00 12/12/17 15:00 87 18 172/93 (119) 92 OxyMask 5.00 12/12/17 14:00 109 13 176/88 (117) 95 OxyMask 5.00 12/12/17 13:32 96 OxyMask 5.00 12/12/17 13:00 84 19 172/90 (117) 96 OxyMask 5.00 12/12/17 13:00 84 12/12/17 12:00 79 17 168/89 (115) 94 Nasal Cannula 6.00 12/12/17 11:00 98.7 90 19 165/91 (115) 93 Nasal Cannula 4.00 12/12/17 11:00 93 Nasal Cannula 4.00 12/12/17 08:25 98.3 82 18 180/82 (114) 96 Nasal Cannula 4.00 12/12/17 08:19 86 20 171/102 98 I & O 12/13/17 07:00 Intake Total 1410 ml Output Total 3125 ml Balance -1715 ml Height & Weight Height: 5'1.00" Weight: 102lbs. 0.8oz. 46.588293wt; 19.3 BMI Method:Estimated General Appearance: No Apparent Distress, Thin HEENT: Other (Knows red) Neck: Normal Inspection, Non Tender Respiratory: No Accessory Muscle Use, No Respiratory Distress, Decreased Breath Sounds Cardiovascular: Regular Rate, Rhythm, No Murmur Capillary Refill: Less Than 3 Seconds Gastrointestinal: normal bowel sounds, non tender, soft Neurologic/Psychiatric: Alert, Oriented x3 Skin: Normal Color, Warm/Dry Results Lab Laboratory Tests 12/12/17 04:08 Assessment/Plan Assessment/Plan S/p fall with bilateral wrists fracture -Orthopedic surgery consulted -Pt still complains of excessive pain. RN giving morphine now. COPDAE with chronic respiratory failure -Will use BiPAP PRN as tolerated. - endtidal C02 monitor -SVNs, advair -Prednisone hx of squamous cell lung cancer ALTAGRACIA MCPHERSON DO Dec 13, 2017 06:17
[2017-12-13] MEDS: morphine INJ 4 MG/ML 1 ML (VIAL/SYRINGE) IVP PRN (06:22)
--- NOTE | 2017-12-13 06:32 | Diagnostic Imaging Report ---
INDICATION: COPD COMPARISON STUDY: Chest from yesterday. FINDINGS: Frontal view of the chest demonstrates previous coronary artery bypass graft changes. Heart size and vascularity are normal. COPD changes are present. There are new infiltrates in the right lung base. IMPRESSION: There is COPD with infiltrates in the right lung base. Dictated by: Dictated on workstation # [id number]
[2017-12-13 06:41] LABS: BASOPHILS % (AUTO) 0 % (0-10); EOSINOPHILS % (AUTO) 0 % (0-10); HEMATOCRIT 36 % (35-52); HEMOGLOBIN 10.8 G/DL (11.5-16.0); LYMPHOCYTES # (AUTO) 0.2 X 10^3 (1.0-4.0); LYMPHOCYTES % (AUTO) 3 % (12-44); MEAN CORPUSCULAR HEMOGLOBIN 30 PG (25-34); MEAN CORPUSCULAR HGB CONC 30 G/DL (32-36); MEAN CORPUSCULAR VOLUME 99 FL (80-99); MEAN PLATELET VOLUME 9.9 FL (7.4-10.4); MONOCYTES # (AUTO) 0.3 X 10^3 (0.0-1.0); MONOCYTES % (AUTO) 4 % (0-12); NEUTROPHILS # (AUTO) 8.2 X 10^3 (1.8-7.8); NEUTROPHILS % (AUTO) 94 % (42-75); PLATELET COUNT 260 10^3/uL (130-400); RED BLOOD COUNT 3.61 10^6/uL (4.35-5.85); WHITE BLOOD COUNT 8.7 10^3/uL (4.3-11.0)
[2017-12-13] MEDS ORDERED: predniSONE 20 MG TAB PO SCH (07:00)
[2017-12-13 07:01] LABS: BUN/CREATININE RATIO 25; CALCIUM 8.9 MG/DL (8.5-10.1); CARBON DIOXIDE 35 MMOL/L (21-32); CHLORIDE 88 MMOL/L (98-107); CREATININE SERUM 0.69 MG/DL (0.60-1.30); GFR ESTIMATED > 60; GLUCOSE 271 MG/DL (70-105); MAGNESIUM 2.1 MG/DL (1.8-2.4); PHOSPHORUS 3.3 MG/DL (2.3-4.7); POTASSIUM 4.4 MMOL/L (3.6-5.0); SODIUM 137 MMOL/L (135-145)
--- NOTE | 2017-12-13 07:13 | Progress Note (SOAP) ---
Subjective Time Seen by Provider: 07:10 Subjective/Events-last exam Patient saw today. Patient having pain. No new thoracic or lumbar pain. Patient had syncope yesterday. Risks fractures. COPD. Chest x-ray may show new infiltrates.. Objective Exam Vital Signs Date Time Temp Pulse Resp B/P (MAP) Pulse Ox O2 Delivery O2 Flow Rate FiO2 12/13/17 06:49 91 High Flow N/C 8.00 12/13/17 06:11 OxyMask 5.00 12/13/17 06:00 83 19 146/81 (102) 90 OxyMask 5.00 12/13/17 05:00 82 17 106/61 (76) 94 OxyMask 5.00 12/13/17 04:40 77 28 94 40.00 12/13/17 04:00 66 20 141/75 (97) 93 OxyMask 5.00 12/13/17 04:00 97 NIV Bilevel 5.00 50 12/13/17 03:00 65 16 133/72 (92) 94 OxyMask 5.00 12/13/17 02:38 61 16 97 40.00 12/13/17 02:00 58 12 159/85 (109) 97 OxyMask 5.00 12/13/17 01:00 62 29 123/73 (90) 97 OxyMask 5.00 12/13/17 01:00 62 12/13/17 00:22 66 20 97 50.00 12/12/17 23:07 98.9 12/12/17 23:07 97 NIV Bilevel 5.00 50 12/12/17 22:45 62 16 95 50.00 12/12/17 22:00 68 15 149/73 (98) 94 OxyMask 5.00 12/12/17 21:00 69 16 126/68 (87) 97 OxyMask 5.00 12/12/17 20:00 74 16 159/80 (106) 97 OxyMask 5.00 12/12/17 19:59 79 12/12/17 19:39 94 Nasal Cannula 5.00 12/12/17 19:35 98.4 12/12/17 19:19 97 OxyMask 5.00 12/12/17 18:00 87 14 176/95 (122) 92 OxyMask 5.00 12/12/17 17:26 97.4 12/12/17 17:00 81 15 183/84 (117) 92 OxyMask 5.00 12/12/17 16:00 93 Nasal Cannula 4.00 12/12/17 16:00 105 17 170/95 (120) 92 OxyMask 5.00 12/12/17 15:00 87 18 172/93 (119) 92 OxyMask 5.00 12/12/17 14:00 109 13 176/88 (117) 95 OxyMask 5.00 12/12/17 13:32 96 OxyMask 5.00 12/12/17 13:00 84 19 172/90 (117) 96 OxyMask 5.00 12/12/17 13:00 84 12/12/17 12:00 79 17 168/89 (115) 94 Nasal Cannula 6.00 12/12/17 11:00 98.7 90 19 165/91 (115) 93 Nasal Cannula 4.00 12/12/17 11:00 93 Nasal Cannula 4.00 12/12/17 08:25 98.3 82 18 180/82 (114) 96 Nasal Cannula 4.00 12/12/17 08:19 86 20 171/102 98 I & O 12/13/17 07:00 Intake Total 1410 ml Output Total 3125 ml Balance -1715 ml Capillary Refill : Less Than 3 SecondsLess Than 3 Seconds General Appearance: No Apparent Distress, Thin HEENT: Normal ENT Inspection, Other (No swollen from for) Neck: Full Range of Motion, Non Tender Respiratory: No Accessory Muscle Use, No Respiratory Distress, Decreased Breath Sounds Cardiovascular: Regular Rate, Rhythm, No Murmur Gastrointestinal: non tender, soft Results Lab Laboratory Tests 12/13/17 06:30 Laboratory Tests 12/13/17 04:15: Blood Gas Puncture Site LEFT BRACHIAL, Blood Gas Patient Temperature 97.9, Arterial Blood pH 7.44H, Arterial Blood Partial Pressure CO2 69H, Arterial Blood Partial Pressure O2 71L, Arterial Blood HCO3 46*H, Arterial Blood Total CO2 48.3H, Arterial Blood Oxygen Saturation 95, Arterial Blood Base Excess 20.2H , Bruce Test NA, Blood Gas Ventilator Setting NO, Blood Gas Inspired Oxygen 40% 12/13/17 06:30: White Blood Count 8.7, Red Blood Count 3.61L, Hemoglobin 10.8L, Hematocrit 36, Mean Corpuscular Volume 99, Mean Corpuscular Hemoglobin 30, Mean Corpuscular Hemoglobin Concent 30L, Red Cell Distribution Width 15.0H, Platelet Count 260, Mean Platelet Volume 9.9, Neutrophils (%) (Auto) 94H, Lymphocytes (%) (Auto) 3L , Monocytes (%) (Auto) 4, Eosinophils (%) (Auto) 0, Basophils (%) (Auto) 0, Neutrophils # (Auto) 8.2H, Lymphocytes # (Auto) 0.2L, Monocytes # (Auto) 0.3, Eosinophils # (Auto) 0.0, Basophils # (Auto) 0.0, Sodium Level 137, Potassium Level 4.4, Chloride Level 88L, Carbon Dioxide Level 35H, Anion Gap 14, Blood Urea Nitrogen 17, Creatinine 0.69, Estimat Glomerular Filtration Rate > 60, BUN/ Creatinine Ratio 25, Glucose Level 271H, Calcium Level 8.9, Phosphorus Level 3.3 , Magnesium Level 2.1 Assessment/Plan Assessment/Plan Assess & Plan/Chief Complaint Bilateral wrist fractures. COPD. fall Hypercapnia. Syncope. Probable concussion Clinical Quality Measures Admission Status Admission Dx Fracture of both wrists. Hypercapnia. COPD. Lung cancer. CAD DVT/VTE Risk/Contraindication: Risk Factor Score Per Nursin RFS Level Per Nursing on Admit: 4+=Very High WEST MCCAULEY DO Dec 13, 2017 07:13
--- NOTE | 2017-12-13 08:11 | Consultation ---
History of Present Illness History of Present Illness Patient Consulted On(ricardo/time) 12/13/17 08:07 Date Seen by Provider: Dec 13, 2017 Time Seen by Provider: 08:07 Reason for Visit: Wrist fractures History of Present Illness 72 y/o white female fell injuring both wrists. Awake alert, states her nose and ribs hurt as well. No other complaints, denies any neuro symptoms currently. Allergies and Home Medications Allergies Coded Allergies: Penicillins (Verified Allergy, Severe, ANAPHYLAXIS, 09/04/16) hydrochlorothiazide (Verified Allergy, Intermediate, RASH, 01/29/17) penicillin G (Verified Allergy, Unknown, 09/04/16) Home Medications Albuterol Sulfate 2.5 Mg/3 Ml Vial.neb, 2.5 MG NEB Q6H PRN for SHORTNESS OF BREATH, (Reported) Alendronate Sodium 70 Mg Tablet, 70 MG PO SATURDAY, (Reported) Apixaban 2.5 Mg Tablet, 2.5 MG PO BID, (Reported) Aspirin 81 Mg Tablet.dr, 81 MG PO DAILY, (Reported) Atorvastatin Calcium 40 Mg Tablet, 40 MG PO HS, (Reported) Calcium Carbonate 500 Mg Tablet, 500 MG PO BID, (Reported) Cetirizine HCl 10 Mg Tablet, 10 MG PO HS, (Reported) Cholecalciferol (Vitamin D3) 2,000 Unit Capsule, 2,000 UNIT PO DAILY, (Reported) Diltiazem HCl 240 Mg Cap.er.24h, 240 MG PO DAILY, (Reported) Furosemide 20 Mg Tablet, 20 MG PO DAILY, (Reported) Levothyroxine Sodium 50 Mcg Tablet, 50 MCG PO DAILY, (Reported) Metformin HCl 500 Mg Tablet, 500 MG PO BID WITH MEALS, (Reported) Metoprolol Tartrate 50 Mg Tablet, 50 MG PO BID, (Reported) Multivits,Stress Formula 1 Each Tablet, 1 TAB PO DAILY, (Reported) Pantoprazole Sodium 40 Mg Tablet.dr, 40 MG PO DAILY, (Reported) Potassium Chloride 10 Meq Capsule.er, 10 MEQ PO DAILY, (Reported) Promethazine HCl/Codeine 118 Ml Syrup, 10 ML PO TID PRN for COUGH, (Reported) Patient Home Medication List Home Medication List Reviewed: Yes Past Uoeepsm-Hcotxe-Ubbuig Hx Past Med/Social Hx: Reviewed and Corrections made Patient Social History Alcohol Use: Denies Use Recreational Drug Use: No Smoking Status: Former Smoker Type Used: Cigarettes Former Smoker, Quit: Jan 28, 2013 Recent Foreign Travel: No Contact w/Someone Who Travel: No Recent Infectious Disease Expo: No Recent Hopitalizations: No Physical Abuse: No Sexual Abuse: No Immunizations Up To Date Tetanus Booster (TDap): Unknown PED Vaccines UTD: Yes Date of Pneumonia Vaccine: Jan 07, 2016 Date of Influenza Vaccine: Jan 06, 2017 Seasonal Allergies Seasonal Allergies: Yes Past Medical History Surgeries: Yes Cardiac, CABG, Coronary Stent, Lobectomy, Orthopedic, Vascular Surgery Respiratory: Yes (chronic hypoxia) Pneumonia, Chronic Bronchitis, COPD Currently Using CPAP: No Currently Using BIPAP: No Cardiac: Yes Atrial Fibrillation, Coronary Artery Disease, High Cholesterol, Hypertension, Peripheral Vascular Neurological: No : No Reproductive Disorders: Yes (26 YRS. 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 Sexually Transmitted Disease: No HIV/AIDS: No Genitourinary: No Gastrointestinal: Yes ("BUTTERFLY" HERNIA) Abdominal Hernia, Gastroesophageal Reflux Musculoskeletal: Yes (RIGHT HIP FX/ORIF) Osteoporosis, Arthritis, Fractures Endocrine: Yes Hypothyroidsim, Diabetes, Non-Insulin dep HEENT: Yes Cataract Loss of Vision: Denies Hearing Impairment: Denies Cancer: Yes Lung Did You Recieve Any Treatments: Yes What Type of Treatment Did You: Chemotherapy, Radiation, Surgical Intervention Psychosocial: Yes Anxiety Integumentary: No Blood Disorders: No Adverse Reaction/Blood Tranf: No Family Medical History Reviewed Nursing Family Hx Chest pain 09 SISTER Congestive heart failure G-MA Family history: Cardiovascular disease 03 FATHER (68) 09 SISTER Family history: Hypertension 03 FATHER 09 SISTER G-MA Stroke No Pertinent Family Hx Review of Systems-General Constitutional: no symptoms reported EENTM: nose pain Respiratory: no symptoms reported Cardiovascular: no symptoms reported Gastrointestinal: no symptoms reported Genitourinary: no symptoms reported Musculoskeletal: joint pain Skin: no symptoms reported Psychiatric/Neurological: No Symptoms Reported Physical Exam-General Problems Physical Exam Vital Signs Vital Signs - First Documented 12/12/17 23:07 FiO2 50 Capillary Refill : Less Than 3 SecondsLess Than 3 Seconds General Appearance: WD/WN HEENT: other (nasal swelling/brusing) Neck: non-tender, full range of motion, supple Respiratory: no respiratory distress, no accessory muscle use, other (ribs tender) Cardiovascular: normal peripheral pulses, regular rate, rhythm Gastrointestinal: soft Rectal: deferred Back: no CVA tenderness, no vertebral tenderness Extremities: swelling, other (bilateral wrist splints in place.) Skin: normal color, warm/dry Comments xrays demonstrate minimally impacted, displaced distal radius fracture, bilaterally. Assessment/Plan Assessment/Plan Reason for Inpatient Admission: Bilateral, Closed minimally displaced distal radius fractures. Should be converted to cock up wrist splints when transferred to Inpt rehab or as an outpt when she follow up with me, no other treatment, other than no lifting or significant use of the arms at this point. Discussed with Dr Hayden in Rehab. Clinical Quality Measures DVT/VTE Risk/Contraindication: Risk Factor Score Per Nursin RFS Level Per Nursing on Admit: 4+=Very High TERRANCE TINOCO MD Dec 13, 2017 8:11 am
[2017-12-13] MEDS: DILTIAZEM 240 MG (CARDIZEM CD) CAP PO SCH (08:17)
[2017-12-13] MEDS: FUROSEMIDE 20 MG (LASIX) TAB PO SCH (08:18)
[2017-12-13] MEDS: APIXABAN 2.5 MG (ELIQUIS) TABLET PO SCH ×2 (08:18→20:34)
[2017-12-13] MEDS: risperiDONE 0.25 MG (RisperDAL) TAB PO SCH ×2 (08:18→20:36)
[2017-12-13] MEDS: VITAMIN D3 1,000 UNITS (CHOLECALCIFEROL) TABLET PO SCH (08:18)
[2017-12-13] MEDS: meTOprolol TARTRATE 50 MG (LOPRESSOR) TAB PO SCH ×2 (08:19→20:36)
[2017-12-13] MEDS: ASPIRIN E.C. 81 MG (ECOTRIN) TAB PO SCH (08:19)
[2017-12-13] MEDS ORDERED: NON-FORMULARY MEDICATION 1 EA EA (Potassium Chloride (Klor-Con Sprinkle) 10 MEQ) PO SCH (09:00)
[2017-12-13] MEDS ORDERED: MULTIVITAMIN PO SCH (09:00)
[2017-12-13] MEDS ORDERED: NON-FORMULARY MEDICATION 1 EA EA (Cholecalciferol (Vitamin D3) (Vitamin D-3) 2,000 UNIT) PO SCH (09:00)
[2017-12-13] MEDS: RT-ADVAIR HFA 115/21 MCG PER PUFF IH SCH ×2 (10:22→19:15)
--- NOTE | 2017-12-13 14:37 | Physical Therapy Evaluation ---
PT Evaluation-General Medical Diagnosis Admission Date Dec 13, 2017 at 13:23 Medical Diagnosis: bilateral wrist fx Onset Date: Dec 12, 2017 Therapy Diagnosis Therapy Diagnosis: impaired mobility, strength, balance, and endurance Height/Weight Height (Feet): 5 Height (Inches): 1.00 Weight (Pounds): 102 Weight (Ounces): 0.8 Precautions Precautions/Isolations: Fall Prevention, Standard Precautions Weight Bear Status Right Lower Extremity: Right Full Weight Bearing Left Lower Extremity: Left Full Weight Bearing NWKeon MARAVILLA Referral Physician: Alexandra Reason for Referral: Evaluation/Treatment Medical History Pertinent Medical History: Atrial Fib, Arthritis, CABG, CAD, COPD, DM, Fractures, GERD, HTN, Hypothroidism, PVD Additional Medical History pneumonia, high cholesterol, abdominal hernia, osteoporosis, cataracts, anxiety Current History pt fell [facility] and fx both wrists Reviewed History: Yes Social History Home: Assisted Living Current Living Status: Alone Entry Into Home: Level Entry Prior/Core FIM Prior Level of Function Functional [place] Measure 0=Not Assessed/NA 4=Minimal Assistance 1=Total Assistance 5=Supervision or Setup 2=Maximal Assistance 6=Modified [place] 3=Moderate Assistance 7=Complete [place] PT Evaluation-Current Transfers Functional [place] Measure 0=Not Assessed/NA 4=Minimal Assistance 1=Total Assistance 5=Supervision or Setup 2=Maximal Assistance 6=Modified [place] 3=Moderate Assistance 7=Complete [place] IGNACIO COLBERT PT Dec 13, 2017 14:37
--- NOTE | 2017-12-13 14:46 | Physical Therapy Evaluation ---
PT Evaluation-General Medical Diagnosis Admission Date Dec 13, 2017 at 13:23 Medical Diagnosis: bilateral wrist fractures Onset Date: Dec 09, 2017 Therapy Diagnosis Therapy Diagnosis: impaired mobility, balance, endurance, and strength Height/Weight Height (Feet): 5 Height (Inches): 1.00 Weight (Pounds): 102 Weight (Ounces): 0.8 Precautions Precautions/Isolations: Fall Prevention, Standard Precautions Weight Bear Status Right Lower Extremity: Right Full Weight Bearing Left Lower Extremity: Left Full Weight Bearing WB restrictions BUE Referral Physician: Alexandra Reason for Referral: Evaluation/Treatment Medical History Pertinent Medical History: Atrial Fib, Arthritis, CABG, CAD, COPD, DM, Fractures, GERD, HTN, Hypothroidism, PVD Additional Medical History high cholesterol, abd. hernia, osteoporosis, cataracts, anxiety, Current History pt fell in [facility] resulting in bilateral wrist fractures Reviewed History: Yes Social History Home: Assisted Living Current Living Status: Alone Entry Into Home: Level Entry Prior/Core FIM Prior Level of Function Functional [place] Measure 0=Not Assessed/NA 4=Minimal Assistance 1=Total Assistance 5=Supervision or Setup 2=Maximal Assistance 6=Modified [place] 3=Moderate Assistance 7=Complete [place] Bed Mobility: 7 Transfers (B,C,W/C) (FIM): 7 Gait: 7 PT Evaluation-Current Subjective pt in bed pre tx, agrees to PT, pain 6/10 both wrists Pt/Family Goals to return to assisted living, be as independent as possible Objective Patient Orientation: Person, Place, Time Attachments: Oxygen, Lai Catheter 4L of O2 nasal canula ROM/Strength ROM Lower Extremities WFL Strenght Lower Extremities R (hip flexion 3+/5, knee ext 3-/5, knee flexion 3-/5, plantarflexion 4/5, dorsiflexion 5/5) L (hip flexion 3-/5, knee ext 3-/5, knee flexion 3+/5, plantarflexion 4+/5, dorsiflexion 5/5) Integumentary/Posture Bladder Incontinence: Lai Cath Sensory Vision: Functional Hearing: Functional Sensation Right Lower Extremit: Intact Sensation Left Lower Extremity: Intact Transfers Functional [place] Measure 0=Not Assessed/NA 4=Minimal Assistance 1=Total Assistance 5=Supervision or Setup 2=Maximal Assistance 6=Modified [place] 3=Moderate Assistance 7=Complete [place] Transfers (B, C, W/C) (FIM): 5 Scootin Rollin Supine to/from Sit: 5 Sit to/from Stand: 5 Sit to Lying (QC): 4 Lying to Sitting/Side of Bed(Q: 4 Sit to Stand (QC): 4 Chair/[id number]-tg-Twqtb Xfer(QC): 4 sit<->stand SBA, supine<->sit SBA, Gait Does the Patient Walk?: Yes Mode of Locomotion: Walk Anticipated Mode of Locomotion: Walk Gait (FIM): 4 Distance: 150' Walk 50 ft with 2 Turns(QC): 3 Walk 150 ft (QC): 3 Gait Level of Assist: 4 Gait Persons Needed: 1 Gait Assistive Device: Handheld Assist Comments/Gait Description Pt ambulates 150' w/ Emmanuel, unsteady gait w/ no LOB, pt requires PT holding her arm for stability and needs standing rest breaks due to SOBOE, cues for purse lip breathing Balance Sitting Static: Normal Sitting Dynamic: Normal Standing Static: Fair Standing Dynamic: Fair Treatment seated exercise ankle pumps, LAQs, HS, hip flexion x20 sit->stand x10 Assessment/Needs pt demonstrates poor endurance w/ impaired strength, balance, and mobility. Pt needs cues for taking deep breaths through nose and pursed lip breathing to mitigate SOB Rehab Potential: Fair PT Short Term Goals Short Term Goals Time Frame: Dec 20, 2017 Transfers (B,C,W/C) (FIM): 6 Gait (FIM): 5 Gait Distance Comment: 200' Gait Level of Assist: 5 Gait Assistive Device: Handheld Assist PT Campus Manager Goals Ch[facility] Goals PT Campus Manager Goals Time Frame: Jan 03, 2018 Transfers (B,C,W/C) (FIM): 6 Sit to Lying (QC): 6 Lying-Sitting on Side/Bed(QC): 6 Sit to Stand (QC): 6 Rollin Chair/Cbg-ss-[place] Xfer(QC): 6 Gait (FIM): 6 Distance: 400' Walk 50ft with 2 Turns (QC): 6 Walk 150 ft (QC): 6 Gait Level of Assist: 6 Gait Assistive Device: Handheld Assist PT Plan Problem List Problem List: Activity Tolerance, Functional Strength, Safety, Balance, Gait, Transfer, Bed Mobility Treatment/Plan Treatment Plan: Continue Plan of Care Treatment Plan: Bed Mobility, Education, Functional Activity Alexi, Functional Strength, Gait, Safety, Therapeutic Exercise, Transfers Treatment Duration: Dec 20, 2017 Frequency: 6 times per week Estimated Hrs Per Day: .25 hour per day (15-30') Patient and/or Family Agrees t: Yes Safety Risks/Education Patient Education: Gait Training, Transfer Techniques, Reviewed Precautions, Correct Positioning, Safety Issues Teaching Recipient: Patient Teaching Methods: Demonstration, Discussion Response to Teaching: Reinforcement Needed Discharge Recommendations Plan Pt will perform bed mobility, gait training, functional strengthening, balance training, endurance training, and education in order to return to assisted living and be as independent as possible Time/GCodes Time In: 1350 Time Out: 1420 Total Billed Treatment Time: 30 Total Billed Treatment 1 visit EVM 15' GT 15' IGNACIO COLBERT PT Dec 13, 2017 14:46
[2017-12-13] MEDS: ACETAMINOPHEN 500 MG TAB (TYLENOL) PO PRN (14:53)
--- NOTE | 2017-12-13 14:56 | Occupational Therapy Eval ---
OT Evaluation-General/PLF Medical Diagnosis Admission Date Dec 13, 2017 at 13:23 Medical Diagnosis: bilateral wrist fracture/COPD Onset Date: Dec 12, 2017 Therapy Diagnosis Therapy Diagnosis: impaired self care skills Height/Weight Height (Feet): 5 Height (Inches): 1.00 Weight (Pounds): 102 Weight (Ounces): 0.8 Precautions Precautions/Isolations: Fall Prevention, Standard Precautions Safety Interventions: Bed Exit Alarm Referral Physician: Kera Medical History Pertinent Medical History: Arthritis, CABG, CAD, COPD, HTN, PVD Additional Medical History Lung cancer, a-fib, high cholesterol, PVD, right hip fracture with ORIF, GERD, osteoporosis, arthritis, hypothyroidism, anxiety, DM Current History Pt had fall resulting in bilateral radius fractures Reviewed History: Yes Social History Home: Assisted Living ADL-Prior Level of Function ADL PLOF Comments Pt states she is normally able to complete basic self care without assistance. States she has been walking behind a w/c so she can transport her oxygen OT Current Status Subjective Pt in bed looking at menu, agrees to therapy. Pt reports 7/10 pain "everywhere. " Mental Status/Objective Patient Orientation: Person, Place Attachments: Lai Catheter, IV, Oxygen Current Glasses/Contacts: Yes Hearing Aids: No Dentures/Partials: Yes Hand Dominance: Right Upper Extremity ROM Pt demonstrates good shoulder and elbow ROM. Bilateral wrists/fingers are not assessed secondary to splints. Upper Extremity Coordination Fine motor coordination is impaired secondary to bilateral splints ADL-Treatment ADL-Current Pt is able to sit EOB with SBA. Sit to stand and transfers with SBA. Pt states she is having difficulty feeding herself secondary to bilateral wrist splinting which also limits finger ROM. Pt was instructed in use of universal cuff and she states she will try it at her next meal to attempt to increase independence. Nurse aide was also notified. Pt resting in bed with needs met after session, RT present. Functional [place] Measure 0=Not Assessed/NA 4=Minimal Assistance 1=Total Assistance 5=Supervision or Setup 2=Maximal Assistance 6=Modified [place] 3=Moderate Assistance 7=Complete IndependenceIRFPAI Quality Coding Scale 6 Independent with activity with or without an assistive device 5 Patient requires set up or clean up by helper. Patient completes activity by themselves 4 Supervision or touching assist (CGA). [place] provide cues , steadying assist 3 The helper provides less than half the effort to complete the activity 2 The helper provides more than half the effort to complete the activity 1 Dependent. The helper does all the effort to complete an activity 7 Patient refused to complete or attempt activity 9 The patient did not perform the activity before the current illness or injury 88 Not attempted due to Medical conditions or safety concerns Education OT Patient Education: Modified ADL techniques, Rehab process Teaching Recipient: Patient Teaching Methods: Discussion Response to Teaching: Verbalize Understanding, Reinforcement Needed OT Short Term Goals Short Term Goals 1=Demonstrate adherence to instructed precautions during ADL tasks. 2=Patient will verbalize/demonstrate understanding of assistive devices/ modifications for ADL. 3=Patient will improve strength/tolerance for activity to enable patient to perform ADL's. OT Half-Way Goals Half-Way Goals Time Frame: Dec 27, 2017 Eating (FIM): 5 Grooming(FIM): 4 Toilet/Commode Transfer(FIM): 5 Additional Goals: 2-Verbalize Understanding, 3-ImproveStrength/Alexi 1=Demonstrate adherence to instructed precautions during ADL tasks. 2=Patient will verbalize/demonstrate understanding of assistive devices/ modifications for ADL. 3=Patient will improve strength/tolerance for activity to enable patient to perform ADL's. OT Education/Plan Problem List/Assessment Assessment: Decreased Activ Tolerance, Decreased UE Strength, Dependent Transfers, Impaired Coordination, Impaired Self-Care Skills, Restricted Funct UE ROM Pt admitted secondary to fall with bilateral wrist fractures. Pt has decreased ADL functioning,mobility, and activity tolerance. Pt has limited use of UE secondary to fractures and splinting. Pt to benefit from skilled OT intervention for ADL training, adaptive equipment training, and transfers to increase level of independence and decrease caregiver burden. Discharge Recommendations Plan/Recommendations: Continue POC Treatment Plan/Plan of Care Treatment,Training & Education: Yes Patient would benefit from OT for education, treatment and training to promote independence in ADL's, mobility, safety and/or upper extremity function for ADL' s. Plan of Care: ADL Retraining, Functional Mobility Treatment Duration: Dec 27, 2017 Frequency: 5 times per week Estimated Hrs Per Day: .25 hour per day Rehab Potential: Fair Time/GCodes Start Time: 14:32 Stop Time: 14:44 Total Time Billed (hr/min): 12 Billed Treatment Time 1 visit, GABY(12minutes) JULISSA KIRK OT Dec 13, 2017 14:56
[2017-12-13] MEDS: ATORVASTATIN 40 MG (LIPITOR) TABLET PO SCH (20:35)
[2017-12-13] MEDS: LORATADINE (CLARITIN) 10 MG TAB PO SCH (20:35)
[2017-12-14] VITALS: BP 131/79
[2017-12-14] MEDS: RT-ALBUTEROL/IPRATROPIUM 3 ML (DUONEB) VIAL INH SCH ×6 (01:16→21:10)
[2017-12-14 03:55] LABS: BASOPHILS % (AUTO) 0 % (0-10); EOSINOPHILS % (AUTO) 0 % (0-10); HEMATOCRIT 32 % (35-52); HEMOGLOBIN 9.9 G/DL (11.5-16.0); LYMPHOCYTES # (AUTO) 0.2 X 10^3 (1.0-4.0); LYMPHOCYTES % (AUTO) 2 % (12-44); MEAN CORPUSCULAR HEMOGLOBIN 30 PG (25-34); MEAN CORPUSCULAR HGB CONC 31 G/DL (32-36); MEAN CORPUSCULAR VOLUME 98 FL (80-99); MEAN PLATELET VOLUME 10.2 FL (7.4-10.4); MONOCYTES # (AUTO) 0.5 X 10^3 (0.0-1.0); MONOCYTES % (AUTO) 4 % (0-12); NEUTROPHILS # (AUTO) 10.6 X 10^3 (1.8-7.8); NEUTROPHILS % (AUTO) 94 % (42-75); PLATELET COUNT 265 10^3/uL (130-400); RED BLOOD COUNT 3.28 10^6/uL (4.35-5.85); RED CELL DISTRIBUTION WIDTH 15.4 % (10.0-14.5); WHITE BLOOD COUNT 11.3 10^3/uL (4.3-11.0)
[2017-12-14 04:00] VITALS: BP 135/74
[2017-12-14 04:09] LABS: BUN/CREATININE RATIO 30; CALCIUM 8.8 MG/DL (8.5-10.1); CARBON DIOXIDE 33 MMOL/L (21-32); CHLORIDE 95 MMOL/L (98-107); CREATININE SERUM 0.71 MG/DL (0.60-1.30); GFR ESTIMATED > 60; GLUCOSE 382 MG/DL (70-105); MAGNESIUM 2.2 MG/DL (1.8-2.4); PHOSPHORUS 3.4 MG/DL (2.3-4.7); POTASSIUM 3.9 MMOL/L (3.6-5.0); SODIUM 139 MMOL/L (135-145)
[2017-12-14] MEDS: PANTOPRAZOLE 40 MG (PROTONIX) TAB PO SCH (05:42)
[2017-12-14] MEDS: methylPREDNISolone 40 MG/ML (Solu-MEDROL) VIAL IV SCH ×4 (05:42→22:47)
[2017-12-14] MEDS: NS IV 1000 ML 1,000 ML IV SCH ×2 (05:43→16:02)
[2017-12-14] MEDS: CALCIUM CARBONATE 600 MG (CALCARB) TAB PO SCH ×2 (05:43→17:42)
[2017-12-14] MEDS: CATHETER FLUSH 10 ML SYR IV SCH ×3 (05:43→20:12)
[2017-12-14] MEDS: KCL 10 MEQ TAB (MICRO K) PO SCH (05:43)
[2017-12-14] MEDS: LEVOTHYROXINE 50 MCG (LEVOTHROID) TAB PO SCH (05:43)
[2017-12-14] MEDS: MULTIVIT W/MINERALS TAB (THERAGRAN M) PO SCH (05:43)
[2017-12-14] MEDS ORDERED: KCL 20 MEQ TAB (K-DUR) PO SCH (06:00)
[2017-12-14] MEDS ORDERED: MAGNESIUM 1 GM/100 ML IVPB 100 ML IV SCH (06:00)
[2017-12-14] MEDS ORDERED: POTASSIUM CL 10MEQ/50ML IVPB 50 ML IV SCH (06:00)
[2017-12-14] MEDS: RT-ADVAIR HFA 115/21 MCG PER PUFF IH SCH ×2 (07:22→19:06)
--- NOTE | 2017-12-14 07:49 | Pulmonary Progress Note ---
Subjective Time Seen by Provider: 07:26 Subjective/Events-last exam SOB and nonproductive cough. Sepsis Event Evaluation Height, Weight, BMI Height: 5'1.00" Weight: 102lbs. 0.8oz. [id number]; 19.3 BMI Method:Estimated Exam Exam Vital Signs Date Time Temp Pulse Resp B/P (MAP) Pulse Ox O2 Delivery O2 Flow Rate FiO2 12/14/17 07:28 94 High Flow N/C 4.00 12/14/17 07:22 94 High Flow N/C 4.00 12/14/17 07:00 110 12/14/17 04:00 97.7 93 20 135/74 (94) 97 High Flow N/C 4.00 12/14/17 02:22 96 Nasal Cannula 5.00 12/14/17 01:17 100 22 99 40.00 12/14/17 01:00 84 12/14/17 00:00 97.1 84 20 131/79 (96) 100 High Flow N/C 4.00 12/13/17 22:13 84 21 96 40.00 12/13/17 20:22 90 Nasal Cannula 4.00 12/13/17 20:00 99 NIV Bilevel 4.00 12/13/17 19:46 98.6 94 14 130/72 (91) 94 High Flow N/C 4.00 12/13/17 19:26 High Flow N/C 4.00 12/13/17 19:16 93 High Flow N/C 4.00 12/13/17 19:00 100 12/13/17 16:47 99.7 96 14 134/65 (88) 99 High Flow N/C 4.00 12/13/17 16:00 99 NIV Bilevel 4.00 12/13/17 14:45 93 High Flow N/C 4.00 12/13/17 13:00 81 12/13/17 12:00 97 NIV Bilevel 4.00 12/13/17 12:00 98.6 12/13/17 11:00 89 21 109/81 (90) 100 High Flow N/C 4.00 12/13/17 10:23 95 High Flow N/C 4.00 12/13/17 10:00 82 20 121/69 (86) 97 High Flow N/C 4.00 12/13/17 09:00 80 20 145/78 (100) 100 High Flow N/C 4.00 12/13/17 08:00 89 21 143/79 (100) 99 High Flow N/C 4.00 12/13/17 08:00 Nasal Cannula 4.00 12/13/17 08:00 97 NIV Bilevel 5.00 50 I & O 12/14/17 07:00 Intake Total 1172 ml Output Total 3425 ml Balance -2253 ml Height & Weight Height: 5'1.00" Weight: 102lbs. 0.8oz. 46.454942mj; 19.3 BMI Method:Estimated General Appearance: No Apparent Distress, Thin HEENT: Normal ENT Inspection, Other (No swollen from for) Neck: Full Range of Motion, Non Tender Respiratory: No Accessory Muscle Use, No Respiratory Distress, Decreased Breath Sounds Cardiovascular: Regular Rate, Rhythm, No Murmur Capillary Refill: Less Than 3 Seconds Gastrointestinal: soft Neurologic/Psychiatric: Alert, Oriented x3 Skin: Normal Color, Warm/Dry Results Lab Laboratory Tests 12/13/17 06:30 12/14/17 03:46 Assessment/Plan Assessment/Plan S/p fall with bilateral wrists fracture -Orthopedic surgery consulted -Pt still complains of excessive pain. RN giving morphine now. COPDAE with chronic respiratory failure -Will use BiPAP PRN as tolerated. -SVNs, advair -Solumedrol IV Leukocytosis - secondary to steroids vs infection -Start Cepfepime and continue to monitor hx of squamous cell lung cancer ALTAGRACIA MCPHERSON DO Dec 14, 2017 07:49
[2017-12-14 08:00] VITALS: BP 115/64
--- NOTE | 2017-12-14 08:00 | Diagnostic Imaging Report ---
EXAM: CHEST 1 VIEW, AP/PA ONLY INDICATION: Dyspnea. COMPARISON: Chest radiograph 12/13/2017. FINDINGS: Normal heart size and central pulmonary vascularity. Postoperative changes in the left upper lobe. Hyperinflation. Persistent interstitial and airspace opacity in the medial right lung base. No pleural effusion or pneumothorax. Sternotomy. No acute osseous findings. IMPRESSION: COPD. Persistent interstitial and airspace opacity in the right lung base medially. Dictated by: Dictated on workstation # [id number]
--- NOTE | 2017-12-14 09:31 | Physical Therapy Daily Note ---
PT Daily Note-Current Subjective Patient is more confused and SOA on this date. Patient is currently on 5L HF. Pain Numeric Pain Scale: 0-No Pain Location: No Pain Reported Mental Status Patient Orientation: Confused Attachments: Oxygen, Lai Catheter, IV Transfers Functional [place] Measure 0=Not Assessed/NA 4=Minimal Assistance 1=Total Assistance 5=Supervision or Setup 2=Maximal Assistance 6=Modified [place] 3=Moderate Assistance 7=Complete IndependenceIRFPAI Quality Coding Scale 6 Independent with activity with or without an assistive device 5 Patient requires set up or clean up by helper. Patient completes activity by themselves 4 Supervision or touching assist (CGA). [place] provide cues , steadying assist 3 The helper provides less than half the effort to complete the activity 2 The helper provides more than half the effort to complete the activity 1 Dependent. The helper does all the effort to complete an activity 7 Patient refused to complete or attempt activity 9 The patient did not perform the activity before the current illness or injury 88 Not attempted due to Medical conditions or safety concerns Transfers (B, C, W/C) (FIM): 5 Scootin Rollin Supine to/from Sit: 5 Sit to/from Stand: 5 Weight Bearing Right Lower Extremity: Right Full Weight Bearing Left Lower Extremity: Left Full Weight Bearing WB restrictions BUE Gait Training Gait (FIM): 4 Distance (FIM): 3=150 ft Distance: 150' Gait Level of Assist: 4 Gait Assistive Device: None CGA for safety Assessment Patient SAO2 decreased to 80% on 6L O2 HF with a 1 min recovery. PT Short Term Goals Short Term Goals Time Frame: Dec 20, 2017 Transfers (B,C,W/C) (FIM): 6 Gait (FIM): 5 Gait Distance Comment: 200' Gait Level of Assist: 5 Gait Assistive Device: Handheld Assist PT Leather Patcher Goals Care Home Goals PT Care Home Goals Time Frame: Jan 03, 2018 Transfers (B,C,W/C) (FIM): 6 Gait (FIM): 6 Distance: 400' Gait Level of Assist: 6 Gait Assistive Device: Handheld Assist PT Plan Treatment/Plan Treatment Plan: Continue Plan of Care Treatment Plan: Bed Mobility, Education, Functional Activity Alexi, Functional Strength, Gait, Safety, Therapeutic Exercise, Transfers Treatment Duration: Dec 20, 2017 Frequency: 6 times per week Estimated Hrs Per Day: .25 hour per day (15-30') Patient and/or Family Agrees t: Yes Time/GCodes Time In: 850 Time Out: 903 Total Billed Treatment Time: 13 Total Billed Treatment 1 visit FA 13 min ANKITA EASTON PT Dec 14, 2017 09:31
[2017-12-14] MEDS: VITAMIN D3 1,000 UNITS (CHOLECALCIFEROL) TABLET PO SCH (09:38)
[2017-12-14] MEDS: FUROSEMIDE 20 MG (LASIX) TAB PO SCH (09:38)
[2017-12-14] MEDS: DILTIAZEM 240 MG (CARDIZEM CD) CAP PO SCH (09:38)
[2017-12-14] MEDS: ASPIRIN E.C. 81 MG (ECOTRIN) TAB PO SCH (09:38)
[2017-12-14] MEDS: APIXABAN 2.5 MG (ELIQUIS) TABLET PO SCH ×2 (09:38→20:09)
[2017-12-14] MEDS: meTOprolol TARTRATE 50 MG (LOPRESSOR) TAB PO SCH ×2 (09:38→20:09)
[2017-12-14] MEDS: CEFEPIME INJECTION 1,000 MG in NS (IVPB) 50 ML IV SCH (09:39)
[2017-12-14] MEDS: risperiDONE 0.25 MG (RisperDAL) TAB PO SCH ×2 (09:39→20:10)
--- NOTE | 2017-12-14 10:06 | Progress Note-Hospitalist ---
BRANDY BECKER MEDICAL STUDENT 12/14/17 1006: Subjective HPI/CC On Admission Date Seen by Provider: Dec 14, 2017 Time Seen by Provider: 08:45 Fall, bilateral wrist fractures Subjective/Events-last exam Pt had no acute events overnight. Per nursing staff, often gets up and tries to walk around but it high fall risk. Frustrated that splints don't allow movement of her hands. Face is still sore, but no headache. Still coughing up blood, but this is her baseline. Eating well. Has not had a BM in 3 days and without bowel regimen. Focused Exam Respiratory: Chest Non Tender, Wheezing (End expiratory) Cardiovascular: Irregularly Irregular Skin: ecchymosis (over nose, cheeks) Objective Exam Vital Signs Vital Signs Date Time Temp Pulse Resp B/P (MAP) Pulse Ox O2 Delivery O2 Flow Rate FiO2 12/14/17 08:00 98.9 118 22 115/64 (81) 98 High Flow N/C 4.00 12/13/17 08:00 50 Capillary Refill : Less Than 3 SecondsLess Than 3 Seconds HEENT: Other (Dry mucus membranes) Gastrointestinal: Normal Bowel Sounds Results/Procedures Lab Laboratory Tests 12/14/17 03:46 Patient resulted labs reviewed. Assessment/Plan Assessment and Plan Assess & Plan/Chief Complaint 72 yo F w/ COPD, lung cancer, admitted after fall at assisted living 1 day after discharge for COPD exacerbation. She was found to have bilateral wrist fracture and again having COPD exacerbation. Fall/Wrist Fractures -Ortho consulted, has recommended changing to cockup splint at discharge or transfer to IRF COPD -Duonebs -Steroids for 5 days Constipation -Will add miralax today Clinical Quality Measures DVT/VTE Risk/Contraindication: Risk Factor Score Per Nursin RFS Level Per Nursing on Admit: 4+=Very High GLYNN BECKER DO 12/14/17 1439: Subjective HPI/CC On Admission Time Seen by Provider: 11:00 Subjective/Events-last exam Started BM regimen Will give Hydrocodone since MSO4 limited use due to respiratory depression and high risk for respiratory decline Pt is stable but poor prognosis Review of Systems General: Fatigue Pulmonary: Dyspnea, Cough Musculoskeletal: hand pain Neurological: Weakness Objective Exam General Appearance: No Apparent Distress, WD/WN, Chronically ill, Thin Respiratory: Chest Non Tender, Normal Breath Sounds, No Accessory Muscle Use, No Respiratory Distress, Crackles, Decreased Breath Sounds Cardiovascular: Regular Rate, Rhythm, No Edema, No Gallop, No JVD, No Murmur, Normal Peripheral Pulses Gastrointestinal: Normal Bowel Sounds, Soft Neurologic/Psychiatric: Alert, Oriented x3, No Motor/Sensory Deficits, Normal Mood/Affect Assessment/Plan Assessment and Plan Assess & Plan/Chief Complaint BM regimen Hydrocodone for pain Nebs, O2, biPAP DNR Poor prognosis Add insulin Diagnosis/Problems Diagnosis/Problems (1) COPD exacerbation Status: Acute (2) Constipation Status: Acute Qualifiers: Constipation type: slow transit constipation Qualified Codes: K59.01 - Slow transit constipation (3) Poor prognosis Status: Acute (4) Fall on same level Status: Acute Qualifiers: Encounter type: initial encounter Qualified Codes: W18.30XA - Fall on same level, unspecified, initial encounter (5) Facial contusion Status: Acute Qualifiers: Encounter type: initial encounter Qualified Codes: S00.83XA - Contusion of other part of head, initial encounter (6) Wrist fracture, bilateral Status: Acute Qualifiers: Encounter type: initial encounter Fracture type: closed Qualified Codes: S62.101A - Fracture of unspecified carpal bone, right wrist, initial encounter for closed fracture; S62.102A - Fracture of unspecified carpal bone, left wrist, initial encounter for closed fracture (7) Chronic respiratory failure with hypoxia and hypercapnia Status: Chronic (8) PAF (paroxysmal atrial fibrillation) Status: Chronic (9) PAD (peripheral artery disease) Status: Chronic (10) Hyperglycemia Status: Acute BRANDY BECKRE MEDICAL STUDENT Dec 14, 2017 10:06 GLYNN BECKER DO Dec 14, 2017 14:39
[2017-12-14 12:00] VITALS: BP 172/84
[2017-12-14] MEDS: POLYETHYLENE GLYCOL 17 GM (MIRALAX) PACK PO SCH ×2 (12:19→14:57)
[2017-12-14] MEDS: SENNA W/DOCUSATE (SENOKOT S) TABLET PO SCH ×2 (12:19→20:10)
[2017-12-14] MEDS: LACTULOSE SYRUP 10GM/15ML (ENULOSE) 30ML UDC PO SCH ×2 (12:19→20:10)
[2017-12-14] MEDS: HYDROcodone/APAP 5 MG/325 MG (LORTAB) TAB PO PRN (15:45)
[2017-12-14] MEDS: inSUlin ASPART (NovoLOG) 1 UNIT/0.01 ML (CHARGE PER UNIT) SC SCH (16:51)
[2017-12-14 16:52] VITALS: BP 134/70
[2017-12-14] MEDS: ATORVASTATIN 40 MG (LIPITOR) TABLET PO SCH (20:09)
[2017-12-14] MEDS: LORATADINE (CLARITIN) 10 MG TAB PO SCH (20:10)
[2017-12-14 20:53] VITALS: BP 154/84
[2017-12-14] MEDS ORDERED: inSUlin DETERMIR 1 UNIT/0.01 ML (LEVEMIR) CHARGE PER UNIT SQ SCH (21:00)
[2017-12-15] VITALS: BP 177/90
[2017-12-15] MEDS: RT-ALBUTEROL/IPRATROPIUM 3 ML (DUONEB) VIAL INH SCH ×5 (02:47→21:23)
[2017-12-15 03:48] LABS: BASOPHILS % (AUTO) 0 % (0-10); EOSINOPHILS % (AUTO) 0 % (0-10); HEMATOCRIT 32 % (35-52); HEMOGLOBIN 9.7 G/DL (11.5-16.0); LYMPHOCYTES # (AUTO) 0.2 X 10^3 (1.0-4.0); LYMPHOCYTES % (AUTO) 2 % (12-44); MEAN CORPUSCULAR HEMOGLOBIN 30 PG (25-34); MEAN CORPUSCULAR HGB CONC 31 G/DL (32-36); MEAN CORPUSCULAR VOLUME 98 FL (80-99); MEAN PLATELET VOLUME 9.9 FL (7.4-10.4); MONOCYTES # (AUTO) 0.5 X 10^3 (0.0-1.0); MONOCYTES % (AUTO) 4 % (0-12); NEUTROPHILS # (AUTO) 10.3 X 10^3 (1.8-7.8); NEUTROPHILS % (AUTO) 94 % (42-75); PLATELET COUNT 281 10^3/uL (130-400); RED BLOOD COUNT 3.24 10^6/uL (4.35-5.85); RED CELL DISTRIBUTION WIDTH 15.6 % (10.0-14.5)
[2017-12-15 04:00] VITALS: BP 171/88
[2017-12-15 04:03] LABS: BUN/CREATININE RATIO 33; CALCIUM 8.8 MG/DL (8.5-10.1); CARBON DIOXIDE 34 MMOL/L (21-32); CHLORIDE 101 MMOL/L (98-107); CREATININE SERUM 0.64 MG/DL (0.60-1.30); GFR ESTIMATED > 60; GLUCOSE 275 MG/DL (70-105); MAGNESIUM 2.2 MG/DL (1.8-2.4); POTASSIUM 3.7 MMOL/L (3.6-5.0); SODIUM 143 MMOL/L (135-145)
[2017-12-15] MEDS: methylPREDNISolone 40 MG/ML (Solu-MEDROL) VIAL IV SCH ×4 (05:38→22:58)
[2017-12-15] MEDS: MULTIVIT W/MINERALS TAB (THERAGRAN M) PO SCH (05:38)
[2017-12-15] MEDS: CALCIUM CARBONATE 600 MG (CALCARB) TAB PO SCH ×2 (05:39→17:40)
[2017-12-15] MEDS: KCL 10 MEQ TAB (MICRO K) PO SCH (05:39)
[2017-12-15] MEDS: CATHETER FLUSH 10 ML SYR IV SCH ×3 (05:39→22:51)
[2017-12-15] MEDS: inSUlin ASPART (NovoLOG) 1 UNIT/0.01 ML (CHARGE PER UNIT) SC SCH ×3 (05:39→17:40)
[2017-12-15] MEDS: LEVOTHYROXINE 50 MCG (LEVOTHROID) TAB PO SCH (05:39)
[2017-12-15] MEDS: PANTOPRAZOLE 40 MG (PROTONIX) TAB PO SCH (05:39)
--- NOTE | 2017-12-15 07:51 | Diagnostic Imaging Report ---
INDICATION: History of infiltrate. COMPARISON: 12/12/2017 FINDINGS: Single frontal radiographic view of the chest was obtained and demonstrates mild cardiomegaly. The pulmonary vasculature is within normal limits. There is stable asymmetric airspace opacity within the medial right lung base. The left lung remains relatively clear. No large effusion or pneumothorax is seen on either side. Sternotomy wires and calcified aortic atherosclerosis are noted. IMPRESSION: 1. Stable airspace opacities within the medial right lung base concerning for pneumonia. 2. Mild cardiomegaly, but no evidence of overt failure. Dictated by: Dictated on workstation # [id number]
[2017-12-15 08:00] VITALS: BP 181/98
--- NOTE | 2017-12-15 09:36 | Progress Note-Hospitalist ---
BRANDY BECKER MEDICAL STUDENT 12/15/17 0936: Subjective HPI/CC On Admission Date Seen by Provider: Dec 15, 2017 Time Seen by Provider: 08:30 Fall, bilateral wrist fractures Subjective/Events-last exam Nursing staff reports that pt was hypoxic overnight and seemed more confused than normal. They gave her 5 L via NC in her mouth. Pt reports no improvement in her shortness of breath or cough. She is receiving breathing treatments, but not using incentive spriometer. Pt has no pain today. She had a BM yesterday. Lai in place. Focused Exam Respiratory: Chest Non Tender, Lungs Clear, Decreased Breath Sounds (in bases bilaterally.) Cardiovascular: Regular Rate, Rhythm, No Edema Objective Exam Vital Signs Vital Signs Date Time Temp Pulse Resp B/P (MAP) Pulse Ox O2 Delivery O2 Flow Rate FiO2 12/15/17 07:00 77 12/15/17 06:53 98 Nasal Cannula 5.00 12/15/17 04:00 98.6 18 171/88 (115) 12/13/17 08:00 50 Capillary Refill : Less Than 3 SecondsLess Than 3 Seconds Gastrointestinal: Normal Bowel Sounds Results/Procedures Lab Laboratory Tests 12/15/17 03:16 Patient resulted labs reviewed. Assessment/Plan Assessment and Plan Assess & Plan/Chief Complaint 72 yo F w/ COPD, lung cancer, admitted after fall at assisted living 1 day after discharge for COPD exacerbation. She was found to have bilateral wrist fracture and again having COPD exacerbation. Fall/Wrist Fractures -Ortho consulted, has recommended changing to cockup splint at discharge or transfer to IRF COPD exacerbation/Pneumonia -Duonebs -Steroids for 5 days -CXR showed R lower lobe infiltrate with concern for pneumonia. On cefepime. Hypertension: Systolic in 170s overnight. -Will discuss adding anti-hypertensive today. Hyperglycemia: Likely related to methylprednisolone. -7 units QHS, 5 units aspart AC -Will continue to monitor but not pursue strict control of glucose. Constipation: Resolved with miralax Clinical Quality Measures DVT/VTE Risk/Contraindication: Risk Factor Score Per Nursin RFS Level Per Nursing on Admit: 4+=Very High GLYNN BECKER DO 12/15/17 1215: Subjective HPI/CC On Admission Time Seen by Provider: 11:00 Subjective/Events-last exam Insulin increased for hyperglycemia from steroids IV abx initiated due to infiltrate noted by Dr Dubois Pt is upright in bed today and appears improved a bit Bowels normal since meds given yesterday Nebs ordered Review of Systems General: Malaise Pulmonary: Dyspnea Objective Exam General Appearance: No Apparent Distress, WD/WN, Chronically ill, Thin Respiratory: Chest Non Tender, No Accessory Muscle Use, No Respiratory Distress , Decreased Breath Sounds, Rales (subtle finding) Cardiovascular: Regular Rate, Rhythm, No Edema, No Gallop, No JVD, No Murmur, Normal Peripheral Pulses Neurologic/Psychiatric: Alert, Oriented x3, No Motor/Sensory Deficits, Normal Mood/Affect Skin: Normal Color, Warm/Dry Assessment/Plan Assessment and Plan Assess & Plan/Chief Complaint Increase insulin due to elevated sugars Needs NHP Abx for infiltrate Diagnosis/Problems Diagnosis/Problems (1) Infiltrate of lung present on chest x-ray Status: Acute Assessment & Plan: Placed on Cefepime empirically (2) Chronic respiratory failure with hypoxia and hypercapnia Status: Chronic (3) Poor prognosis Status: Acute (4) PAF (paroxysmal atrial fibrillation) Status: Chronic (5) Hyperglycemia Status: Acute (6) Constipation Status: Resolved Qualifiers: Constipation type: slow transit constipation Qualified Codes: K59.01 - Slow transit constipation (7) Wrist fracture, bilateral Status: Acute Qualifiers: Encounter type: initial encounter Fracture type: closed Qualified Codes: S62.101A - Fracture of unspecified carpal bone, right wrist, initial encounter for closed fracture; S62.102A - Fracture of unspecified carpal bone, left wrist, initial encounter for closed fracture (8) Facial contusion Status: Acute Qualifiers: Encounter type: initial encounter Qualified Codes: S00.83XA - Contusion of other part of head, initial encounter (9) COPD exacerbation Status: Acute BRANDY BECKER MEDICAL STUDENT Dec 15, 2017 09:36 GLYNN BECKER DO Dec 15, 2017 12:15
[2017-12-15] MEDS: NS IV 1000 ML 1,000 ML IV SCH ×3 (09:38→23:35)
[2017-12-15] MEDS: CEFEPIME INJECTION 1,000 MG in NS (IVPB) 50 ML IV SCH (09:39)
[2017-12-15] MEDS: SENNA W/DOCUSATE (SENOKOT S) TABLET PO SCH ×2 (09:39→22:50)
[2017-12-15] MEDS: ASPIRIN E.C. 81 MG (ECOTRIN) TAB PO SCH (09:40)
[2017-12-15] MEDS: APIXABAN 2.5 MG (ELIQUIS) TABLET PO SCH ×2 (09:40→22:50)
[2017-12-15] MEDS: DILTIAZEM 240 MG (CARDIZEM CD) CAP PO SCH (09:40)
[2017-12-15] MEDS: LACTULOSE SYRUP 10GM/15ML (ENULOSE) 30ML UDC PO SCH ×2 (09:40→22:51)
[2017-12-15] MEDS: POLYETHYLENE GLYCOL 17 GM (MIRALAX) PACK PO SCH ×3 (09:40→22:52)
[2017-12-15] MEDS: VITAMIN D3 1,000 UNITS (CHOLECALCIFEROL) TABLET PO SCH (09:40)
[2017-12-15] MEDS: meTOprolol TARTRATE 50 MG (LOPRESSOR) TAB PO SCH ×2 (09:41→22:49)
[2017-12-15] MEDS: FUROSEMIDE 20 MG (LASIX) TAB PO SCH (09:41)
[2017-12-15] MEDS: risperiDONE 0.25 MG (RisperDAL) TAB PO SCH ×2 (09:45→22:49)
[2017-12-15] MEDS: RT-ADVAIR HFA 115/21 MCG PER PUFF IH SCH ×2 (10:33→18:59)
[2017-12-15] MEDS ORDERED: amLODIPine 5 MG (NORVASC) TAB PO ONE (11:00)
[2017-12-15] MEDS ORDERED: CALCIUM CARBONATE 500 MG (TUMS) TAB.CHEW ONE (11:11)
[2017-12-15] MEDS: CALCIUM CARBONATE 500 MG (TUMS) TAB.CHEW PO SCH ×2 (11:18→17:39)
[2017-12-15] MEDS ORDERED: SUCRALFATE 1 GM (CARAFATE) TAB PO PRN (11:45)
[2017-12-15 12:00] VITALS: BP 140/62
[2017-12-15] MEDS: HYDROcodone/APAP 5 MG/325 MG (LORTAB) TAB PO PRN ×2 (15:40→22:49)
[2017-12-15 16:59] VITALS: BP 131/73
[2017-12-15 20:18] VITALS: BP 148/76
[2017-12-15] MEDS: LORATADINE (CLARITIN) 10 MG TAB PO SCH (22:49)
[2017-12-15] MEDS: ATORVASTATIN 40 MG (LIPITOR) TABLET PO SCH (22:50)
[2017-12-15] MEDS: inSUlin DETERMIR 1 UNIT/0.01 ML (LEVEMIR) CHARGE PER UNIT SQ SCH (22:51)
[2017-12-16] VITALS: BP 136/72
[2017-12-16] MEDS: RT-ALBUTEROL/IPRATROPIUM 3 ML (DUONEB) VIAL INH SCH ×6 (02:08→22:37)
[2017-12-16 03:25] LABS: BASOPHILS % (AUTO) 0 % (0-10); EOSINOPHILS % (AUTO) 0 % (0-10); HEMATOCRIT 34 % (35-52); HEMOGLOBIN 10.7 G/DL (11.5-16.0); LYMPHOCYTES # (AUTO) 0.2 X 10^3 (1.0-4.0); LYMPHOCYTES % (AUTO) 1 % (12-44); MEAN CORPUSCULAR HEMOGLOBIN 30 PG (25-34); MEAN CORPUSCULAR HGB CONC 31 G/DL (32-36); MEAN CORPUSCULAR VOLUME 97 FL (80-99); MONOCYTES # (AUTO) 0.6 X 10^3 (0.0-1.0); MONOCYTES % (AUTO) 4 % (0-12); NEUTROPHILS # (AUTO) 12.5 X 10^3 (1.8-7.8); NEUTROPHILS % (AUTO) 94 % (42-75); PLATELET COUNT 300 10^3/uL (130-400); RED BLOOD COUNT 3.52 10^6/uL (4.35-5.85); RED CELL DISTRIBUTION WIDTH 15.9 % (10.0-14.5); WHITE BLOOD COUNT 13.2 10^3/uL (4.3-11.0)
[2017-12-16 03:46] LABS: BUN/CREATININE RATIO 34; CALCIUM 8.6 MG/DL (8.5-10.1); CARBON DIOXIDE 31 MMOL/L (21-32); CHLORIDE 100 MMOL/L (98-107); CREATININE SERUM 0.67 MG/DL (0.60-1.30); GFR ESTIMATED > 60; GLUCOSE 283 MG/DL (70-105); MAGNESIUM 2.4 MG/DL (1.8-2.4); PHOSPHORUS 3.1 MG/DL (2.3-4.7); SODIUM 140 MMOL/L (135-145)
[2017-12-16 04:00] VITALS: BP 137/71
[2017-12-16] MEDS: RT-ADVAIR HFA 115/21 MCG PER PUFF IH SCH ×2 (06:09→19:14)
[2017-12-16] MEDS: inSUlin ASPART (NovoLOG) 1 UNIT/0.01 ML (CHARGE PER UNIT) SC SCH ×3 (06:25→16:47)
[2017-12-16] MEDS: CALCIUM CARBONATE 500 MG (TUMS) TAB.CHEW PO SCH ×3 (06:25→16:47)
[2017-12-16] MEDS: LEVOTHYROXINE 50 MCG (LEVOTHROID) TAB PO SCH (06:25)
[2017-12-16] MEDS: methylPREDNISolone 40 MG/ML (Solu-MEDROL) VIAL IV SCH (06:25)
[2017-12-16] MEDS: CATHETER FLUSH 10 ML SYR IV SCH ×3 (06:26→22:00)
--- NOTE | 2017-12-16 07:11 | Diagnostic Imaging Report ---
CLINICAL INDICATION: Patient with dyspnea. EXAM: Portable chest x-ray upright view. COMPARISON: Chest x-ray dated 12/15/2017. FINDINGS: Stable mild cardiomegaly with no significant pulmonary vascular congestion. There is slight improved aeration of the left lung. There is stable lung architectural distortion involving the right midlung field. There is stable increase airspace opacities in both lung hager most pronounced centrally. There is no pleural effusion or pneumothorax. Stable postop changes to the chest with sternotomy wires. Fractures of both humeri are again noted. The remainder of this exam shows no significant interval change compared to the prior study of comparison. IMPRESSION: 1: There is slight improved aeration of left lung. Otherwise stable bilateral lung infiltrates or atelectasis. Superimposed scarring also may be considered. Dictated by: Dictated on workstation # [id number]
--- NOTE | 2017-12-16 07:30 | Pulmonary Progress Note ---
Subjective Time Seen by Provider: 13:03 Subjective/Events-last exam Pt complains of pain. Sepsis Event Evaluation Height, Weight, BMI Height: 5'1.00" Weight: 102lbs. 0.8oz. 46.646571ck; 19.3 BMI Method:Estimated Exam Exam Vital Signs Date Time Temp Pulse Resp B/P (MAP) Pulse Ox O2 Delivery O2 Flow Rate FiO2 12/16/17 06:10 94 Nasal Cannula 6.00 12/16/17 06:10 90 Nasal Cannula 6.00 12/16/17 02:08 90 Nasal Cannula 6.00 12/16/17 01:00 76 12/16/17 00:00 97.6 85 18 136/72 (93) 91 High Flow N/C 5.00 12/15/17 21:24 94 Nasal Cannula 6.00 12/15/17 20:18 98.5 105 24 148/76 (100) 92 High Flow N/C 5.00 12/15/17 20:00 Nasal Cannula 5.00 12/15/17 19:05 95 Nasal Cannula 6.00 12/15/17 19:00 100 12/15/17 18:59 92 Nasal Cannula 6.00 12/15/17 16:59 96.6 83 16 131/73 (92) 91 High Flow N/C 5.00 12/15/17 13:00 96 12/15/17 12:00 97.9 64 18 140/62 (88) 97 High Flow N/C 5.00 12/15/17 10:35 92 Nasal Cannula 6.00 12/15/17 08:05 Nasal Cannula 5.00 12/15/17 08:00 97.9 87 18 181/98 (125) 100 High Flow N/C 5.00 I & O 12/16/17 07:00 Intake Total 1952 ml Output Total 2850 ml Balance -898 ml Height & Weight Height: 5'1.00" Weight: 102lbs. 0.8oz. 46.157321xq; 19.3 BMI Method:Estimated General Appearance: No Apparent Distress, Thin HEENT: Normal ENT Inspection, Other (No swollen from for) Neck: Full Range of Motion, Non Tender Respiratory: No Accessory Muscle Use, No Respiratory Distress, Decreased Breath Sounds Cardiovascular: Regular Rate, Rhythm, No Murmur Capillary Refill: Less Than 3 Seconds Gastrointestinal: soft Neurologic/Psychiatric: Alert, Oriented x3 Skin: Normal Color, Warm/Dry Results Lab Laboratory Tests 12/15/17 03:16 12/16/17 03:10 Assessment/Plan Assessment/Plan S/p fall with bilateral wrists fracture -Orthopedic surgery consulted -Pt still complains of excessive pain. RN giving morphine now. COPDAE with chronic respiratory failure -Will use BiPAP PRN as tolerated. -SVNs, advair -Solumedrol IV-- change to prednisone Leukocytosis - secondary to steroids vs infection -Cefepime hx of squamous cell lung cancer CAD ALTAGRACIA WALLACE DO Dec 16, 2017 07:30
--- NOTE | 2017-12-16 07:35 | Progress Note (SOAP) ---
Subjective Time Seen by Provider: 07:30 Subjective/Events-last exam Patient to get braces for her fractured wrist. Patient not constipated now. Patient breathing okay this morning. Objective Exam Vital Signs Date Time Temp Pulse Resp B/P (MAP) Pulse Ox O2 Delivery O2 Flow Rate FiO2 12/16/17 06:10 94 Nasal Cannula 6.00 12/16/17 06:10 90 Nasal Cannula 6.00 12/16/17 02:08 90 Nasal Cannula 6.00 12/16/17 01:00 76 12/16/17 00:00 97.6 85 18 136/72 (93) 91 High Flow N/C 5.00 12/15/17 21:24 94 Nasal Cannula 6.00 12/15/17 20:18 98.5 105 24 148/76 (100) 92 High Flow N/C 5.00 12/15/17 20:00 Nasal Cannula 5.00 12/15/17 19:05 95 Nasal Cannula 6.00 12/15/17 19:00 100 12/15/17 18:59 92 Nasal Cannula 6.00 12/15/17 16:59 96.6 83 16 131/73 (92) 91 High Flow N/C 5.00 12/15/17 13:00 96 12/15/17 12:00 97.9 64 18 140/62 (88) 97 High Flow N/C 5.00 12/15/17 10:35 92 Nasal Cannula 6.00 12/15/17 08:05 Nasal Cannula 5.00 12/15/17 08:00 97.9 87 18 181/98 (125) 100 High Flow N/C 5.00 I & O 12/16/17 07:00 Intake Total 1952 ml Output Total 2850 ml Balance -898 ml Capillary Refill : Less Than 3 SecondsLess Than 3 Seconds General Appearance: No Apparent Distress, Thin HEENT: Normal ENT Inspection Neck: Full Range of Motion, Normal Inspection Respiratory: No Accessory Muscle Use, No Respiratory Distress, Decreased Breath Sounds Cardiovascular: Regular Rate, Rhythm, No Murmur Gastrointestinal: non tender, soft Results Lab Laboratory Tests 12/16/17 03:10 Laboratory Tests 12/15/17 11:09: Glucometer 246H 12/15/17 17:29: Glucometer 367H 12/15/17 21:13: Glucometer 258H 12/16/17 03:10: White Blood Count 13.2H, Red Blood Count 3.52L, Hemoglobin 10.7L, Hematocrit 34L , Mean Corpuscular Volume 97, Mean Corpuscular Hemoglobin 30, Mean Corpuscular Hemoglobin Concent 31L, Red Cell Distribution Width 15.9H, Platelet Count 300, Mean Platelet Volume 10.0, Neutrophils (%) (Auto) 94H, Lymphocytes (%) (Auto) 1L , Monocytes (%) (Auto) 4, Eosinophils (%) (Auto) 0, Basophils (%) (Auto) 0, Neutrophils # (Auto) 12.5H, Lymphocytes # (Auto) 0.2L, Monocytes # (Auto) 0.6, Eosinophils # (Auto) 0.0, Basophils # (Auto) 0.0, Sodium Level 140, Potassium Level 4.0, Chloride Level 100, Carbon Dioxide Level 31, Anion Gap 9, Blood Urea Nitrogen 23H, Creatinine 0.67, Estimat Glomerular Filtration Rate > 60, BUN/ Creatinine Ratio 34, Glucose Level 283H, Calcium Level 8.6, Phosphorus Level 3.1 , Magnesium Level 2.4 12/16/17 05:13: Glucometer 232H Assessment/Plan Assessment/Plan Assess & Plan/Chief Complaint Bilateral wrist fractures. COPD. fall Hypercapnia. Syncope. Probable concussion. . 12/16/17. Bilateral wrist fractures. COPD. FALL. Hypercapnia. Syncope. Problem concussion. Constipation resolved Clinical Quality Measures Admission Status Admission Dx Fracture of both wrists. Hypercapnia. COPD. Lung cancer. CAD DVT/VTE Risk/Contraindication: Risk Factor Score Per Nursin RFS Level Per Nursing on Admit: 4+=Very High WEST MCCAULEY DO Dec 16, 2017 07:35
[2017-12-16] MEDS: KCL 10 MEQ TAB (MICRO K) PO SCH (07:44)
[2017-12-16] MEDS: MULTIVIT W/MINERALS TAB (THERAGRAN M) PO SCH (07:44)
[2017-12-16] MEDS: PANTOPRAZOLE 40 MG (PROTONIX) TAB PO SCH (07:44)
[2017-12-16] MEDS: CALCIUM CARBONATE 600 MG (CALCARB) TAB PO SCH ×2 (07:44→18:24)
[2017-12-16 08:00] VITALS: BP 159/77
--- NOTE | 2017-12-16 08:59 | Physical Therapy Daily Note ---
PT Daily Note-Current Subjective Patient is up in recliner and agrees to PT. Pain Location: Right, Left Location Body Site: Wrist Pain Description: Acute Mental Status Patient Orientation: Person, Time, Situation Attachments: Oxygen (6L) Transfers Functional Ada Measure 0=Not Assessed/NA 4=Minimal Assistance 1=Total Assistance 5=Supervision or Setup 2=Maximal Assistance 6=Modified Ada 3=Moderate Assistance 7=Complete IndependenceIRFPAI Quality Coding Scale 6 Independent with activity with or without an assistive device 5 Patient requires set up or clean up by helper. Patient completes activity by themselves 4 Supervision or touching assist (CGA). [place] provide cues , steadying assist 3 The helper provides less than half the effort to complete the activity 2 The helper provides more than half the effort to complete the activity 1 Dependent. The helper does all the effort to complete an activity 7 Patient refused to complete or attempt activity 9 The patient did not perform the activity before the current illness or injury 88 Not attempted due to Medical conditions or safety concerns Transfers (B, C, W/C) (FIM): 5 Scootin Sit to/from Stand: 5 Weight Bearing Right Lower Extremity: Right Full Weight Bearing Left Lower Extremity: Left Full Weight Bearing WB restrictions BUE Gait Training Gait (FIM): 4 Distance (FIM): 3=150 ft Distance: 325' Gait Level of Assist: 4 Gait Persons Needed: 1 Gait Assistive Device: None CGA for safety due to unsteady gait sequence. SAO2 decreased to 81% on 6L O2 with 1 minute recovery Exercises Seated Therapy Exercises: Ankle pumps, Long arc quads Seated Reps: 25 (2 sets) Assessment Patient requested toilet use for BM. From a PT standpoint, patient will require extended care facility due to end stage COPD and decreased safety awareness. Per director of logistics, [facility] has declined readmit due to patient high risk. PT Short Term Goals Short Term Goals Time Frame: Dec 20, 2017 Transfers (B,C,W/C) (FIM): 6 Gait (FIM): 5 Gait Distance Comment: 200' Gait Level of Assist: 5 Gait Assistive Device: Handheld Assist PT System Development Manager Goals System Development Manager Goals PT System Development Manager Goals Time Frame: Jan 03, 2018 Transfers (B,C,W/C) (FIM): 6 Gait (FIM): 6 Distance: 400' Gait Level of Assist: 6 Gait Assistive Device: Handheld Assist PT Plan Treatment/Plan Treatment Plan: Continue Plan of Care Treatment Plan: Bed Mobility, Education, Functional Activity Alexi, Functional Strength, Gait, Safety, Therapeutic Exercise, Transfers Treatment Duration: Dec 20, 2017 Frequency: 6 times per week Estimated Hrs Per Day: .25 hour per day (15-30') Patient and/or Family Agrees t: Yes Time/GCodes Time In: 835 Time Out: 851 Total Billed Treatment Time: 16 Total Billed Treatment 1 visit FA 16 min ANKITA EASTON PT Dec 16, 2017 08:59
[2017-12-16] MEDS: risperiDONE 0.25 MG (RisperDAL) TAB PO SCH ×2 (09:18→20:41)
[2017-12-16] MEDS: FUROSEMIDE 20 MG (LASIX) TAB PO SCH (09:18)
[2017-12-16] MEDS: CEFEPIME INJECTION 1,000 MG in NS (IVPB) 50 ML IV SCH (09:18)
[2017-12-16] MEDS: ASPIRIN E.C. 81 MG (ECOTRIN) TAB PO SCH (09:18)
[2017-12-16] MEDS: APIXABAN 2.5 MG (ELIQUIS) TABLET PO SCH ×2 (09:18→20:37)
[2017-12-16] MEDS: meTOprolol TARTRATE 50 MG (LOPRESSOR) TAB PO SCH ×2 (09:18→20:37)
[2017-12-16] MEDS: VITAMIN D3 1,000 UNITS (CHOLECALCIFEROL) TABLET PO SCH (09:18)
[2017-12-16] MEDS: POLYETHYLENE GLYCOL 17 GM (MIRALAX) PACK PO SCH ×2 (09:19→20:36)
[2017-12-16] MEDS: LACTULOSE SYRUP 10GM/15ML (ENULOSE) 30ML UDC PO SCH ×2 (09:20→20:36)
[2017-12-16] MEDS: DILTIAZEM 240 MG (CARDIZEM CD) CAP PO SCH (09:20)
[2017-12-16] MEDS: SENNA W/DOCUSATE (SENOKOT S) TABLET PO SCH ×2 (09:23→20:37)
[2017-12-16] MEDS: amLODIPine 5 MG (NORVASC) TAB PO SCH (09:23)
--- NOTE | 2017-12-16 10:58 | Occupational Ther Daily Note ---
OT Current Status-Daily Note Subjective Pt alert, sitting in recliner. Pt agrees to therapy. No c/o pain at this time. Mental Status/Objective Patient Orientation: Person, Place, Time, Situation Functional Imperial Measure 0=Not Assessed/NA 4=Minimal Assistance 1=Total Assistance 5=Supervision or Setup 2=Maximal Assistance 6=Modified Imperial 3=Moderate Assistance 7=Complete Imperial Attachments: IV, Oxygen ADL-Treatment Toileting (FIM): 4 (Pt able to wipe self after splints were applied. CGA in standing.) Transfers (B, C, W/C) (FIM): 4 (CGA with ambulation.) Toilet/Commode Transfer (FIM): 4 (CGA for transfer.) Other Treatment Pt c/o pain in palm of L hand while cleansing self after voiding, pain subsided quickly. Wrist cock-up splints applied to R/L UE's. Macerated areas on ulnar side proximal palm on R/L hands, small area on L thumb/index webspace. Nrsg notified. After therapy, pt sitting in recliner with call light/phone in reach. All needs met in room. OT Short Term Goals Short Term Goals Transfers (B,C,W/C) (FIM): 6 1=Demonstrate adherence to instructed precautions during ADL tasks. 2=Patient will verbalize/demonstrate understanding of assistive devices/ modifications for ADL. 3=Patient will improve strength/tolerance for activity to enable patient to perform ADL's. OT Press Room Supervisor Goals Skilled Nursing Goals Time Frame: Dec 27, 2017 Eating (FIM): 5 Grooming(FIM): 4 Toilet/Commode Transfer(FIM): 5 Additional Goals: 2-Verbalize Understanding, 3-ImproveStrength/Alexi 1=Demonstrate adherence to instructed precautions during ADL tasks. 2=Patient will verbalize/demonstrate understanding of assistive devices/ modifications for ADL. 3=Patient will improve strength/tolerance for activity to enable patient to perform ADL's. OT Education/Plan Problem List/Assessment Pt admitted secondary to fall with bilateral wrist fractures. Pt has decreased ADL functioning,mobility, and activity tolerance. Pt has limited use of UE secondary to fractures and splinting. Pt to benefit from skilled OT intervention for ADL training, adaptive equipment training, and transfers to increase level of independence and decrease caregiver burden. Discharge Recommendations Plan/Recommendations: Continue POC Treatment Plan/Plan of Care Patient would benefit from OT for education, treatment and training to promote independence in ADL's, mobility, safety and/or upper extremity function for ADL' s. Plan of Care: ADL Retraining, Functional Mobility Treatment Duration: Dec 27, 2017 Frequency: 5 times per week Estimated Hrs Per Day: .25 hour per day Rehab Potential: Fair Time/GCodes Start Time: 10:05 Stop Time: 10:40 Total Time Billed (hr/min): 35 Billed Treatment Time 1 visit-ADL 2 (35 min) JOY MAYS Dec 16, 2017 10:58
[2017-12-16] MEDS: predniSONE 10 MG TAB PO SCH (11:24)
--- NOTE | 2017-12-16 14:47 | Occ Therapy Progress Note ---
Therapy Progress Note Checked pt's UE's for pressure areas from new splints. No areas noted. JOY MAYS Dec 16, 2017 14:46
[2017-12-16 15:54] VITALS: BP 131/73
[2017-12-16] MEDS: IBUPROFEN 600 MG (MOTRIN) TAB PO PRN (16:31)
[2017-12-16] MEDS: HYDROcodone/APAP 5 MG/325 MG (LORTAB) TAB PO PRN (18:25)
[2017-12-16] MEDS: ATORVASTATIN 40 MG (LIPITOR) TABLET PO SCH (20:37)
[2017-12-16] MEDS: LORATADINE (CLARITIN) 10 MG TAB PO SCH (20:37)
[2017-12-16] MEDS: inSUlin DETERMIR 1 UNIT/0.01 ML (LEVEMIR) CHARGE PER UNIT SQ SCH (20:38)
[2017-12-17] VITALS: BP 153/75
[2017-12-17] MEDS: RT-ALBUTEROL/IPRATROPIUM 3 ML (DUONEB) VIAL INH SCH ×3 (02:58→10:53)
[2017-12-17 03:52] LABS: BASOPHILS % (AUTO) 0 % (0-10); EOSINOPHILS % (AUTO) 0 % (0-10); HEMATOCRIT 32 % (35-52); LYMPHOCYTES # (AUTO) 0.5 X 10^3 (1.0-4.0); LYMPHOCYTES % (AUTO) 4 % (12-44); MEAN CORPUSCULAR HEMOGLOBIN 30 PG (25-34); MEAN CORPUSCULAR HGB CONC 31 G/DL (32-36); MEAN CORPUSCULAR VOLUME 96 FL (80-99); MEAN PLATELET VOLUME 9.9 FL (7.4-10.4); MONOCYTES # (AUTO) 1.6 X 10^3 (0.0-1.0); MONOCYTES % (AUTO) 12 % (0-12); NEUTROPHILS # (AUTO) 10.9 X 10^3 (1.8-7.8); NEUTROPHILS % (AUTO) 84 % (42-75); PLATELET COUNT 350 10^3/uL (130-400); RED BLOOD COUNT 3.35 10^6/uL (4.35-5.85); WHITE BLOOD COUNT 12.9 10^3/uL (4.3-11.0)
[2017-12-17 04:08] LABS: BUN/CREATININE RATIO 39; CALCIUM 9.3 MG/DL (8.5-10.1); CARBON DIOXIDE 34 MMOL/L (21-32); CHLORIDE 95 MMOL/L (98-107); CREATININE SERUM 0.69 MG/DL (0.60-1.30); GFR ESTIMATED > 60; GLUCOSE 251 MG/DL (70-105); MAGNESIUM 2.3 MG/DL (1.8-2.4); PHOSPHORUS 3.6 MG/DL (2.3-4.7); POTASSIUM 4.1 MMOL/L (3.6-5.0); SODIUM 139 MMOL/L (135-145)
[2017-12-17] MEDS: LEVOTHYROXINE 50 MCG (LEVOTHROID) TAB PO SCH (05:56)
[2017-12-17] MEDS: CALCIUM CARBONATE 600 MG (CALCARB) TAB PO SCH (05:56)
[2017-12-17] MEDS: KCL 10 MEQ TAB (MICRO K) PO SCH (05:56)
[2017-12-17] MEDS: PANTOPRAZOLE 40 MG (PROTONIX) TAB PO SCH (05:56)
[2017-12-17] MEDS: MULTIVIT W/MINERALS TAB (THERAGRAN M) PO SCH (05:56)
[2017-12-17] MEDS: inSUlin ASPART (NovoLOG) 1 UNIT/0.01 ML (CHARGE PER UNIT) SC SCH ×2 (05:56→12:20)
[2017-12-17] MEDS: CATHETER FLUSH 10 ML SYR IV SCH ×2 (05:57→10:17)
[2017-12-17] MEDS: CALCIUM CARBONATE 500 MG (TUMS) TAB.CHEW PO SCH ×2 (05:57→11:00)
[2017-12-17] MEDS: predniSONE 10 MG TAB PO SCH (05:58)
--- NOTE | 2017-12-17 07:29 | Progress Note (SOAP) ---
Subjective Time Seen by Provider: 07:25 Subjective/Events-last exam Patient had no complaints today. Splints are working good. Patient able to eat now. Patient be transferred to [facility] in [place]. Patient to be seen in the office in one week Objective Exam Vital Signs Date Time Temp Pulse Resp B/P (MAP) Pulse Ox O2 Delivery O2 Flow Rate FiO2 12/17/17 02:59 97 High Flow N/C 6.00 12/17/17 00:00 98.0 89 16 153/75 (101) 93 High Flow N/C 5.00 12/16/17 22:37 97 High Flow N/C 6.00 12/16/17 20:00 Nasal Cannula 5.00 12/16/17 19:14 Nasal Cannula 6.00 12/16/17 19:12 88 Nasal Cannula 6.00 12/16/17 15:54 98.2 94 16 131/73 (92) 94 High Flow N/C 5.00 12/16/17 15:07 92 Nasal Cannula 6.00 12/16/17 10:16 92 Nasal Cannula 6.00 12/16/17 08:10 Nasal Cannula 5.00 12/16/17 08:00 99.3 93 16 159/77 (104) 94 High Flow N/C 5.00 I & O 12/17/17 07:00 Intake Total 1940 ml Output Total 1250 ml Balance 690 ml Capillary Refill : Less Than 3 SecondsLess Than 3 Seconds General Appearance: No Apparent Distress, Thin HEENT: Normal ENT Inspection Neck: Full Range of Motion, Normal Inspection Respiratory: No Accessory Muscle Use, Decreased Breath Sounds Cardiovascular: Regular Rate, Rhythm, No Murmur Gastrointestinal: non tender, soft Results Lab Laboratory Tests 12/16/17 11:22: Glucometer 264H 12/16/17 16:40: Glucometer 268H 12/16/17 21:14: Glucometer 592*H 12/17/17 01:16: Glucometer 366H 12/17/17 03:25: White Blood Count 12.9H, Red Blood Count 3.35L, Hemoglobin 10.0L, Hematocrit 32L , Mean Corpuscular Volume 96, Mean Corpuscular Hemoglobin 30, Mean Corpuscular Hemoglobin Concent 31L, Red Cell Distribution Width 16.0H, Platelet Count 350, Mean Platelet Volume 9.9, Neutrophils (%) (Auto) 84H, Lymphocytes (%) (Auto) 4L , Monocytes (%) (Auto) 12, Eosinophils (%) (Auto) 0, Basophils (%) (Auto) 0, Neutrophils # (Auto) 10.9H, Lymphocytes # (Auto) 0.5L, Monocytes # (Auto) 1.6H, Eosinophils # (Auto) 0.0, Basophils # (Auto) 0.0, Sodium Level 139, Potassium Level 4.1, Chloride Level 95L, Carbon Dioxide Level 34H, Anion Gap 10, Blood Urea Nitrogen 27H, Creatinine 0.69, Estimat Glomerular Filtration Rate > 60, BUN /Creatinine Ratio 39, Glucose Level 251H, Calcium Level 9.3, Phosphorus Level 3.6, Magnesium Level 2.3 12/17/17 05:53: Glucometer 192H Assessment/Plan Assessment/Plan Assess & Plan/Chief Complaint Bilateral wrist fractures. COPD. fall Hypercapnia. Syncope. Probable concussion. . 12/16/17. Bilateral wrist fractures. COPD. FALL. Hypercapnia. Syncope. Problem concussion. Constipation resolved. . 12/17/17 bilateral wrist fractures. COPD. fall. Hypercapnia. Syncope. Patient be discharged today to [facility]. Patient to be seen in the office in one week Clinical Quality Measures Admission Status Admission Dx Fracture of both wrists. Hypercapnia. COPD. Lung cancer. CAD DVT/VTE Risk/Contraindication: Risk Factor Score Per Nursin RFS Level Per Nursing on Admit: 4+=Very High WEST MCCAULEY DO Dec 17, 2017 07:29
--- NOTE | 2017-12-17 07:33 | Discharge Inst-Skilled Nursing ---
Discharge Inst-Skilled NF Patient Instructions Patient Problems: Bilateral fractures of wrists. COPD Lung cancer. Prednisone causing elevated blood sugars Consult/Follow Up/Orders Skilled NF Admit to: [facility] Certification (SNF) I certify that SNF services are required to be given on an inpatient basis because of the above named patient's need for fci care on a continuing basis for the conditions(s) for which he/she was receiving inpatient hospital services prior to his/her transfer to the SNF. Detention Facility Order: Veterans Adviser-Evaluate & Treat, Physical Therapy-Evaluate & Treat Daily Activity as Tolerated: Yes New & Resume Previous Orders Sanju Mccauley Dec 17, 2017 07:32 SANJU MCCAULEY DO Dec 17, 2017 7:33 am
--- NOTE | 2017-12-17 07:40 | Pulmonary Progress Note ---
Subjective Time Seen by Provider: 07:37 Subjective/Events-last exam No complications noted. Sepsis Event Evaluation Height, Weight, BMI Height: 5'1.00" Weight: 102lbs. 0.8oz. 46.438025ee; 19.3 BMI Method:Estimated Exam Exam Vital Signs Date Time Temp Pulse Resp B/P (MAP) Pulse Ox O2 Delivery O2 Flow Rate FiO2 12/17/17 02:59 97 High Flow N/C 6.00 12/17/17 00:00 98.0 89 16 153/75 (101) 93 High Flow N/C 5.00 12/16/17 22:37 97 High Flow N/C 6.00 12/16/17 20:00 Nasal Cannula 5.00 12/16/17 19:14 Nasal Cannula 6.00 12/16/17 19:12 88 Nasal Cannula 6.00 12/16/17 15:54 98.2 94 16 131/73 (92) 94 High Flow N/C 5.00 12/16/17 15:07 92 Nasal Cannula 6.00 12/16/17 10:16 92 Nasal Cannula 6.00 12/16/17 08:10 Nasal Cannula 5.00 12/16/17 08:00 99.3 93 16 159/77 (104) 94 High Flow N/C 5.00 I & O 12/17/17 07:00 Intake Total 1940 ml Output Total 1250 ml Balance 690 ml Height & Weight Height: 5'1.00" Weight: 102lbs. 0.8oz. 46.835551qq; 19.3 BMI Method:Estimated General Appearance: No Apparent Distress, Thin HEENT: Normal ENT Inspection Neck: Full Range of Motion, Normal Inspection Respiratory: No Accessory Muscle Use, Decreased Breath Sounds Cardiovascular: Regular Rate, Rhythm, No Murmur Capillary Refill: Less Than 3 Seconds Gastrointestinal: non tender, soft Neurologic/Psychiatric: Alert, Oriented x3 Skin: Normal Color, Warm/Dry Results Lab Laboratory Tests 12/16/17 03:10 12/17/17 03:25 Assessment/Plan Assessment/Plan S/p fall with bilateral wrists fracture -Orthopedic surgery consulted COPDAE with chronic respiratory failure -Will use BiPAP PRN as tolerated. -SVNs, advair prednisone taper -Repeat BNP and continue lasix Leukocytosis - secondary to steroids vs infection -Cefepime Atelectasis -IS and increase activity hx of squamous cell lung cancer CAD ALTAGRACIA WALLACE DO Dec 17, 2017 07:40
[2017-12-17] MEDS: RT-ADVAIR HFA 115/21 MCG PER PUFF IH SCH (07:54)
[2017-12-17 08:00] VITALS: BP 122/89
--- NOTE | 2017-12-17 09:09 | Diagnostic Imaging Report ---
INDICATION: Dyspnea. TECHNIQUE: Single view chest 3:27 AM. CORRELATION STUDY: 12/16/2017 FINDINGS: Sternal wires are present. Heart size and mediastinum are stable. Increasing consolidation over the right heart border. Small right pleural effusion. Otherwise chronic appearing changes of the lung parenchyma. Fracture deformities of the bilateral proximal humerus. IMPRESSION: 1. Increasing consolidation likely right middle lobe with small right pleural effusion. Dictated by: Dictated on workstation # [id number]
[2017-12-17] MEDS: FUROSEMIDE 20 MG (LASIX) TAB PO SCH (09:28)
[2017-12-17] MEDS: APIXABAN 2.5 MG (ELIQUIS) TABLET PO SCH (09:28)
[2017-12-17] MEDS: meTOprolol TARTRATE 50 MG (LOPRESSOR) TAB PO SCH (09:28)
[2017-12-17] MEDS: risperiDONE 0.25 MG (RisperDAL) TAB PO SCH (09:28)
[2017-12-17] MEDS: ASPIRIN E.C. 81 MG (ECOTRIN) TAB PO SCH (09:28)
[2017-12-17] MEDS: amLODIPine 5 MG (NORVASC) TAB PO SCH (09:28)
[2017-12-17] MEDS: VITAMIN D3 1,000 UNITS (CHOLECALCIFEROL) TABLET PO SCH (09:29)
[2017-12-17] MEDS: LACTULOSE SYRUP 10GM/15ML (ENULOSE) 30ML UDC PO SCH (09:29)
[2017-12-17] MEDS: DILTIAZEM 240 MG (CARDIZEM CD) CAP PO SCH (09:29)
[2017-12-17] MEDS: POLYETHYLENE GLYCOL 17 GM (MIRALAX) PACK PO SCH (09:30)
[2017-12-17] MEDS: SENNA W/DOCUSATE (SENOKOT S) TABLET PO SCH (09:30)
[2017-12-17] MEDS: CEFEPIME INJECTION 1,000 MG in NS (IVPB) 50 ML IV SCH (10:17)
[2017-12-17] MEDS ORDERED: PRD20T PO (11:50)
[2017-12-17] MEDS ORDERED: INSU100V16 SQ (11:53)
[2017-12-17 12:30] VITALS: BP 122/89
--- NOTE | 2017-12-18 07:29 | Discharge Summary ---
Diagnosis/Chief Complaint Date of Admission Dec 13, 2017 at 13:23 Date of Discharge Dec 17, 2017 at 12:30 Discharge Date: Dec 17, 2017 Discharge Time: 07:27 Discharge Diagnosis .fall. Syncope. Bilateral distal radius fractures with associated styloid fractures. Hypercapnia. 6 diabetes. COPD with acute exacerbation. Squamous cell lung cancer. Coronary artery disease. Diabetes Reason Hospital Visit Patient recently discharged from hospital. Patient in assisted living. Patient found on floor outside her bedroom. Patient fractured both wrists. Patient landed on her face. Patient has COPD. Patient has history of lung cancer. Patient admitted Discharge Summary Consultations Orthopedics. Pulmonology. Surgery. Discharge Physical Examination Allergies: Coded Allergies: Penicillins (Verified Allergy, Severe, ANAPHYLAXIS, 09/04/16) hydrochlorothiazide (Verified Allergy, Intermediate, RASH, 01/29/17) penicillin G (Verified Allergy, Unknown, 09/04/16) Vitals & I&Os Vital Signs Date Time Temp Pulse Resp B/P (MAP) Pulse Ox O2 Delivery O2 Flow Rate FiO2 12/17/17 12:30 123 22 122/89 90 Nasal Cannula 6.00 12/17/17 08:00 99.1 12/13/17 08:00 50 Hospital Course Labs (last 24 hrs) Laboratory Tests 12/12/17 04:08: White Blood Count 7.8, Red Blood Count 3.72L, Hemoglobin 11.5, Hematocrit 38, Mean Corpuscular Volume 102H, Mean Corpuscular Hemoglobin 31, Mean Corpuscular Hemoglobin Concent 30L, Red Cell Distribution Width 15.5H, Platelet Count 292, Mean Platelet Volume 9.9, Neutrophils (%) (Auto) 70, Lymphocytes (%) (Auto) 15, Monocytes (%) (Auto) 13H, Eosinophils (%) (Auto) 2, Basophils (%) (Auto) 0, Neutrophils # (Auto) 5.4, Lymphocytes # (Auto) 1.2, Monocytes # (Auto) 1.0, Eosinophils # (Auto) 0.2, Basophils # (Auto) 0.0, Sodium Level 141, Potassium Level 4.6, Chloride Level 90L, Carbon Dioxide Level 44H, Anion Gap 7, Blood Urea Nitrogen 18, Creatinine 0.72, Estimat Glomerular Filtration Rate > 60, BUN/ Creatinine Ratio 25, Glucose Level 179H, Calcium Level 10.0, Corrected Calcium 10.3H, Total Bilirubin 0.4, Aspartate Amino Transf (AST/SGOT) 14, Alanine Aminotransferase (ALT/SGPT) 19, Alkaline Phosphatase 61, Total Creatine Kinase 31, Total Protein 6.6, Albumin 3.6, Thyroid Stimulating Hormone (TSH) 3.28, Free Thyroxine 1.14 12/12/17 04:20: Urine Color YELLOW, Urine Clarity CLEAR, Urine pH 6, Urine Specific [place] 1.020, Urine Protein 1+H, Urine Glucose (UA) NEGATIVE, Urine Ketones NEGATIVE, Urine Nitrite NEGATIVE, Urine Bilirubin NEGATIVE, Urine Urobilinogen NORMAL, Urine Leukocyte Esterase NEGATIVE, Urine RBC (Auto) NEGATIVE, Urine RBC NONE, Urine WBC NONE, Urine Squamous Epithelial Cells RARE, Urine Crystals NONE, Urine Bacteria TRACE, Urine Casts NONE, Urine Mucus NEGATIVE, Urine Culture Indicated NO 12/12/17 06:16: Blood Gas Puncture Site RIGHT RAD, Blood Gas Patient Temperature 97.1, Arterial Blood pH 7.36L, Arterial Blood Partial Pressure CO2 83*H, Arterial Blood Partial Pressure O2 70L, Arterial Blood HCO3 47*H, Arterial Blood Total CO2 49.5H, Arterial Blood Oxygen Saturation 94, Arterial Blood Base Excess 20.1H, Bruce Test POSITIVE, Blood Gas Ventilator Setting NO, Blood Gas Inspired Oxygen 4L 12/13/17 04:15: Blood Gas Puncture Site LEFT BRACHIAL, Blood Gas Patient Temperature 97.9, Arterial Blood pH 7.44H, Arterial Blood Partial Pressure CO2 69H, Arterial Blood Partial Pressure O2 71L, Arterial Blood HCO3 46*H, Arterial Blood Total CO2 48.3H, Arterial Blood Oxygen Saturation 95, Arterial Blood Base Excess 20.2H , Bruce Test NA, Blood Gas Ventilator Setting NO, Blood Gas Inspired Oxygen 40% 12/13/17 06:30: White Blood Count 8.7, Red Blood Count 3.61L, Hemoglobin 10.8L, Hematocrit 36, Mean Corpuscular Volume 99, Mean Corpuscular Hemoglobin 30, Mean Corpuscular Hemoglobin Concent 30L, Red Cell Distribution Width 15.0H, Platelet Count 260, Mean Platelet Volume 9.9, Neutrophils (%) (Auto) 94H, Lymphocytes (%) (Auto) 3L , Monocytes (%) (Auto) 4, Eosinophils (%) (Auto) 0, Basophils (%) (Auto) 0, Neutrophils # (Auto) 8.2H, Lymphocytes # (Auto) 0.2L, Monocytes # (Auto) 0.3, Eosinophils # (Auto) 0.0, Basophils # (Auto) 0.0, Sodium Level 137, Potassium Level 4.4, Chloride Level 88L, Carbon Dioxide Level 35H, Anion Gap 14, Blood Urea Nitrogen 17, Creatinine 0.69, Estimat Glomerular Filtration Rate > 60, BUN/ Creatinine Ratio 25, Glucose Level 271H, Calcium Level 8.9, Phosphorus Level 3.3 , Magnesium Level 2.1, B-Type Natriuretic Peptide 432.5H 12/14/17 03:46: White Blood Count 11.3H, Red Blood Count 3.28L, Hemoglobin 9.9L, Hematocrit 32L , Mean Corpuscular Volume 98, Mean Corpuscular Hemoglobin 30, Mean Corpuscular Hemoglobin Concent 31L, Red Cell Distribution Width 15.4H, Platelet Count 265, Mean Platelet Volume 10.2, Neutrophils (%) (Auto) 94H, Lymphocytes (%) (Auto) 2L , Monocytes (%) (Auto) 4, Eosinophils (%) (Auto) 0, Basophils (%) (Auto) 0, Neutrophils # (Auto) 10.6H, Lymphocytes # (Auto) 0.2L, Monocytes # (Auto) 0.5, Eosinophils # (Auto) 0.0, Basophils # (Auto) 0.0, Sodium Level 139, Potassium Level 3.9, Chloride Level 95L, Carbon Dioxide Level 33H, Anion Gap 11, Blood Urea Nitrogen 21H, Creatinine 0.71, Estimat Glomerular Filtration Rate > 60, BUN /Creatinine Ratio 30, Glucose Level 382H, Calcium Level 8.8, Phosphorus Level 3.4, Magnesium Level 2.2 12/14/17 16:08: Glucometer 463*H 12/14/17 20:11: Glucometer 482*H 12/15/17 03:16: White Blood Count 11.0, Red Blood Count 3.24L, Hemoglobin 9.7L, Hematocrit 32L, Mean Corpuscular Volume 98, Mean Corpuscular Hemoglobin 30, Mean Corpuscular Hemoglobin Concent 31L, Red Cell Distribution Width 15.6H, Platelet Count 281, Mean Platelet Volume 9.9, Neutrophils (%) (Auto) 94H, Lymphocytes (%) (Auto) 2L , Monocytes (%) (Auto) 4, Eosinophils (%) (Auto) 0, Basophils (%) (Auto) 0, Neutrophils # (Auto) 10.3H, Lymphocytes # (Auto) 0.2L, Monocytes # (Auto) 0.5, Eosinophils # (Auto) 0.0, Basophils # (Auto) 0.0, Sodium Level 143, Potassium Level 3.7, Chloride Level 101, Carbon Dioxide Level 34H, Anion Gap 8, Blood Urea Nitrogen 21H, Creatinine 0.64, Estimat Glomerular Filtration Rate > 60, BUN /Creatinine Ratio 33, Glucose Level 275H, Calcium Level 8.8, Phosphorus Level 3.0, Magnesium Level 2.2 12/15/17 05:32: Glucometer 269H 12/15/17 11:09: Glucometer 246H 12/15/17 17:29: Glucometer 367H 12/15/17 21:13: Glucometer 258H 12/16/17 03:10: White Blood Count 13.2H, Red Blood Count 3.52L, Hemoglobin 10.7L, Hematocrit 34L , Mean Corpuscular Volume 97, Mean Corpuscular Hemoglobin 30, Mean Corpuscular Hemoglobin Concent 31L, Red Cell Distribution Width 15.9H, Platelet Count 300, Mean Platelet Volume 10.0, Neutrophils (%) (Auto) 94H, Lymphocytes (%) (Auto) 1L , Monocytes (%) (Auto) 4, Eosinophils (%) (Auto) 0, Basophils (%) (Auto) 0, Neutrophils # (Auto) 12.5H, Lymphocytes # (Auto) 0.2L, Monocytes # (Auto) 0.6, Eosinophils # (Auto) 0.0, Basophils # (Auto) 0.0, Sodium Level 140, Potassium Level 4.0, Chloride Level 100, Carbon Dioxide Level 31, Anion Gap 9, Blood Urea Nitrogen 23H, Creatinine 0.67, Estimat Glomerular Filtration Rate > 60, BUN/ Creatinine Ratio 34, Glucose Level 283H, Calcium Level 8.6, Phosphorus Level 3.1 , Magnesium Level 2.4, B-Type Natriuretic Peptide 418.4H 12/16/17 05:13: Glucometer 232H 12/16/17 11:22: Glucometer 264H 12/16/17 16:40: Glucometer 268H 12/16/17 21:14: Glucometer 592*H 12/17/17 01:16: Glucometer 366H 12/17/17 03:25: White Blood Count 12.9H, Red Blood Count 3.35L, Hemoglobin 10.0L, Hematocrit 32L , Mean Corpuscular Volume 96, Mean Corpuscular Hemoglobin 30, Mean Corpuscular Hemoglobin Concent 31L, Red Cell Distribution Width 16.0H, Platelet Count 350, Mean Platelet Volume 9.9, Neutrophils (%) (Auto) 84H, Lymphocytes (%) (Auto) 4L , Monocytes (%) (Auto) 12, Eosinophils (%) (Auto) 0, Basophils (%) (Auto) 0, Neutrophils # (Auto) 10.9H, Lymphocytes # (Auto) 0.5L, Monocytes # (Auto) 1.6H, Eosinophils # (Auto) 0.0, Basophils # (Auto) 0.0, Sodium Level 139, Potassium Level 4.1, Chloride Level 95L, Carbon Dioxide Level 34H, Anion Gap 10, Blood Urea Nitrogen 27H, Creatinine 0.69, Estimat Glomerular Filtration Rate > 60, BUN /Creatinine Ratio 39, Glucose Level 251H, Calcium Level 9.3, Phosphorus Level 3.6, Magnesium Level 2.3, B-Type Natriuretic Peptide 255.2H 12/17/17 05:53: Glucometer 192H 12/17/17 12:24: Glucometer 236H Laboratory Tests 12/12/17 04:08 12/13/17 06:30 12/14/17 03:46 12/15/17 03:16 12/16/17 03:10 12/17/17 03:25 Pending Labs Laboratory Tests 12/12/17 04:08: White Blood Count 7.8, Red Blood Count 3.72, Hemoglobin 11.5, Hematocrit 38, Mean Corpuscular Volume 102, Mean Corpuscular Hemoglobin 31, Mean Corpuscular Hemoglobin Concent 30, Red Cell Distribution Width 15.5, Platelet Count 292, Mean Platelet Volume 9.9, Neutrophils (%) (Auto) 70, Lymphocytes (%) (Auto) 15, Monocytes (%) (Auto) 13, Eosinophils (%) (Auto) 2, Basophils (%) (Auto) 0, Neutrophils # (Auto) 5.4, Lymphocytes # (Auto) 1.2, Monocytes # (Auto) 1.0, Eosinophils # (Auto) 0.2, Basophils # (Auto) 0.0, Sodium Level 141, Potassium Level 4.6, Chloride Level 90, Carbon Dioxide Level 44, Anion Gap 7, Blood Urea Nitrogen 18, Creatinine 0.72, Estimat Glomerular Filtration Rate > 60, BUN/ Creatinine Ratio 25, Glucose Level 179, Calcium Level 10.0, Corrected Calcium 10.3, Total Bilirubin 0.4, Aspartate Amino Transf (AST/SGOT) 14, Alanine Aminotransferase (ALT/SGPT) 19, Alkaline Phosphatase 61, Total Creatine Kinase 31, Total Protein 6.6, Albumin 3.6, Thyroid Stimulating Hormone (TSH) 3.28, Free Thyroxine 1.14 12/12/17 04:20: Urine Color YELLOW, Urine Clarity CLEAR, Urine pH 6, Urine Specific [place] 1.020, Urine Protein 1+, Urine Glucose (UA) NEGATIVE, Urine Ketones NEGATIVE, Urine Nitrite NEGATIVE, Urine Bilirubin NEGATIVE, Urine Urobilinogen NORMAL, Urine Leukocyte Esterase NEGATIVE, Urine RBC (Auto) NEGATIVE, Urine RBC NONE, Urine WBC NONE, Urine Squamous Epithelial Cells RARE, Urine Crystals NONE, Urine Bacteria TRACE, Urine Casts NONE, Urine Mucus NEGATIVE, Urine Culture Indicated NO 12/12/17 06:16: Blood Gas Puncture Site RIGHT RAD, Blood Gas Patient Temperature 97.1, Arterial Blood pH 7.36, Arterial Blood Partial Pressure CO2 83, Arterial Blood Partial Pressure O2 70, Arterial Blood HCO3 47, Arterial Blood Total CO2 49.5, Arterial Blood Oxygen Saturation 94, Arterial Blood Base Excess 20.1, Bruce Test POSITIVE , Blood Gas Ventilator Setting NO, Blood Gas Inspired Oxygen 4L 12/13/17 04:15: Blood Gas Puncture Site LEFT BRACHIAL, Blood Gas Patient Temperature 97.9, Arterial Blood pH 7.44, Arterial Blood Partial Pressure CO2 69, Arterial Blood Partial Pressure O2 71, Arterial Blood HCO3 46, Arterial Blood Total CO2 48.3, Arterial Blood Oxygen Saturation 95, Arterial Blood Base Excess 20.2, Bruce Test NA, Blood Gas Ventilator Setting NO, Blood Gas Inspired Oxygen 40% 12/13/17 06:30: White Blood Count 8.7, Red Blood Count 3.61, Hemoglobin 10.8, Hematocrit 36, Mean Corpuscular Volume 99, Mean Corpuscular Hemoglobin 30, Mean Corpuscular Hemoglobin Concent 30, Red Cell Distribution Width 15.0, Platelet Count 260, Mean Platelet Volume 9.9, Neutrophils (%) (Auto) 94, Lymphocytes (%) (Auto) 3, Monocytes (%) (Auto) 4, Eosinophils (%) (Auto) 0, Basophils (%) (Auto) 0, Neutrophils # (Auto) 8.2, Lymphocytes # (Auto) 0.2, Monocytes # (Auto) 0.3, Eosinophils # (Auto) 0.0, Basophils # (Auto) 0.0, Sodium Level 137, Potassium Level 4.4, Chloride Level 88, Carbon Dioxide Level 35, Anion Gap 14, Blood Urea Nitrogen 17, Creatinine 0.69, Estimat Glomerular Filtration Rate > 60, BUN/ Creatinine Ratio 25, Glucose Level 271, Calcium Level 8.9, Phosphorus Level 3.3 , Magnesium Level 2.1, B-Type Natriuretic Peptide 432.5 12/14/17 03:46: White Blood Count 11.3, Red Blood Count 3.28, Hemoglobin 9.9, Hematocrit 32, Mean Corpuscular Volume 98, Mean Corpuscular Hemoglobin 30, Mean Corpuscular Hemoglobin Concent 31, Red Cell Distribution Width 15.4, Platelet Count 265, Mean Platelet Volume 10.2, Neutrophils (%) (Auto) 94, Lymphocytes (%) (Auto) 2, Monocytes (%) (Auto) 4, Eosinophils (%) (Auto) 0, Basophils (%) (Auto) 0, Neutrophils # (Auto) 10.6, Lymphocytes # (Auto) 0.2, Monocytes # (Auto) 0.5, Eosinophils # (Auto) 0.0, Basophils # (Auto) 0.0, Sodium Level 139, Potassium Level 3.9, Chloride Level 95, Carbon Dioxide Level 33, Anion Gap 11, Blood Urea Nitrogen 21, Creatinine 0.71, Estimat Glomerular Filtration Rate > 60, BUN/ Creatinine Ratio 30, Glucose Level 382, Calcium Level 8.8, Phosphorus Level 3.4 , Magnesium Level 2.2 12/14/17 16:08: Glucometer 463 12/14/17 20:11: Glucometer 482 12/15/17 03:16: White Blood Count 11.0, Red Blood Count 3.24, Hemoglobin 9.7, Hematocrit 32, Mean Corpuscular Volume 98, Mean Corpuscular Hemoglobin 30, Mean Corpuscular Hemoglobin Concent 31, Red Cell Distribution Width 15.6, Platelet Count 281, Mean Platelet Volume 9.9, Neutrophils (%) (Auto) 94, Lymphocytes (%) (Auto) 2, Monocytes (%) (Auto) 4, Eosinophils (%) (Auto) 0, Basophils (%) (Auto) 0, Neutrophils # (Auto) 10.3, Lymphocytes # (Auto) 0.2, Monocytes # (Auto) 0.5, Eosinophils # (Auto) 0.0, Basophils # (Auto) 0.0, Sodium Level 143, Potassium Level 3.7, Chloride Level 101, Carbon Dioxide Level 34, Anion Gap 8, Blood Urea Nitrogen 21, Creatinine 0.64, Estimat Glomerular Filtration Rate > 60, BUN/ Creatinine Ratio 33, Glucose Level 275, Calcium Level 8.8, Phosphorus Level 3.0 , Magnesium Level 2.2 12/15/17 05:32: Glucometer 269 12/15/17 11:09: Glucometer 246 12/15/17 17:29: Glucometer 367 12/15/17 21:13: Glucometer 258 12/16/17 03:10: White Blood Count 13.2, Red Blood Count 3.52, Hemoglobin 10.7, Hematocrit 34, Mean Corpuscular Volume 97, Mean Corpuscular Hemoglobin 30, Mean Corpuscular Hemoglobin Concent 31, Red Cell Distribution Width 15.9, Platelet Count 300, Mean Platelet Volume 10.0, Neutrophils (%) (Auto) 94, Lymphocytes (%) (Auto) 1, Monocytes (%) (Auto) 4, Eosinophils (%) (Auto) 0, Basophils (%) (Auto) 0, Neutrophils # (Auto) 12.5, Lymphocytes # (Auto) 0.2, Monocytes # (Auto) 0.6, Eosinophils # (Auto) 0.0, Basophils # (Auto) 0.0, Sodium Level 140, Potassium Level 4.0, Chloride Level 100, Carbon Dioxide Level 31, Anion Gap 9, Blood Urea Nitrogen 23, Creatinine 0.67, Estimat Glomerular Filtration Rate > 60, BUN/ Creatinine Ratio 34, Glucose Level 283, Calcium Level 8.6, Phosphorus Level 3.1 , Magnesium Level 2.4, B-Type Natriuretic Peptide 418.4 12/16/17 05:13: Glucometer 232 12/16/17 11:22: Glucometer 264 12/16/17 16:40: Glucometer 268 12/16/17 21:14: Glucometer 592 12/17/17 01:16: Glucometer 366 12/17/17 03:25: White Blood Count 12.9, Red Blood Count 3.35, Hemoglobin 10.0, Hematocrit 32, Mean Corpuscular Volume 96, Mean Corpuscular Hemoglobin 30, Mean Corpuscular Hemoglobin Concent 31, Red Cell Distribution Width 16.0, Platelet Count 350, Mean Platelet Volume 9.9, Neutrophils (%) (Auto) 84, Lymphocytes (%) (Auto) 4, Monocytes (%) (Auto) 12, Eosinophils (%) (Auto) 0, Basophils (%) (Auto) 0, Neutrophils # (Auto) 10.9, Lymphocytes # (Auto) 0.5, Monocytes # (Auto) 1.6, Eosinophils # (Auto) 0.0, Basophils # (Auto) 0.0, Sodium Level 139, Potassium Level 4.1, Chloride Level 95, Carbon Dioxide Level 34, Anion Gap 10, Blood Urea Nitrogen 27, Creatinine 0.69, Estimat Glomerular Filtration Rate > 60, BUN/ Creatinine Ratio 39, Glucose Level 251, Calcium Level 9.3, Phosphorus Level 3.6 , Magnesium Level 2.3, B-Type Natriuretic Peptide 255.2 12/17/17 05:53: Glucometer 192 12/17/17 12:24: Glucometer 236 Radiology Reviewed X-ray bilateral distal radius fractures with associated styloid fracture Discussion & Recommendations Patient transferred to detention. Discharge Home Medications: Active Scripts Active Novolog (Insulin Aspart) 100 Unit/1 Ml Susp 1-15 Unit SQ AC 30 Days Glucose Level (mg/ dL) Low Dose 60-180 0 181-200 0 201-250 3 251-300 5 301-350 7 351-400 9 Greater than 400 call provider Prednisone 20 Mg Tab 20 Mg PO DAILY 2 Days Reported Vitamin D-3 (Cholecalciferol (Vitamin D3)) 2,000 Unit Capsule 2,000 Unit PO DAILY Klor-Con Sprinkle (Potassium Chloride) 10 Meq Capsule.er 10 Meq PO DAILY Furosemide 20 Mg Tablet 20 Mg PO DAILY Calcium (Calcium Carbonate) 500 Mg Tablet 500 Mg PO BID Metformin HCl 500 Mg Tablet 500 Mg PO BID WITH MEALS Eliquis (Apixaban) 2.5 Mg Tablet 2.5 Mg PO BID Cartia Xt (Diltiazem HCl) 240 Mg Cap.er.24h 240 Mg PO DAILY Aspirin EC (Aspirin) 81 Mg Tablet.dr 81 Mg PO DAILY Alendronate Sodium 70 Mg Tablet 70 Mg PO SATURDAY Stress Formula (Multivits,Stress Formula) 1 Each Tablet 1 Tab PO DAILY Atorvastatin Calcium 40 Mg Tablet 40 Mg PO HS Pantoprazole Sodium 40 Mg Tablet.dr 40 Mg PO DAILY Promethazine-Codeine Syrup (Promethazine HCl/Codeine) 118 Ml Syrup 10 Ml PO TID PRN Cetirizine HCl 10 Mg Tablet 10 Mg PO HS Levothyroxine Sodium 50 Mcg Tablet 50 Mcg PO DAILY Albuterol Sulfate 2.5 Mg/3 Ml Vial.neb 2.5 Mg NEB Q6H PRN Metoprolol Tartrate 50 Mg Tablet 50 Mg PO BID Instructions to patient/family Please see electronic discharge instructions given to patient. Clinical Quality Measures DVT/VTE Risk/Contraindication: Risk Factor Score Per Nursin RFS Level Per Nursing on Admit: 4+=Very High WEST MCCAULEY DO Dec 18, 2017 07:29
== END 2017-12-17 12:30 | DRG 563 ==
LOC: EDUNIT# 04:00 → ER 04:01 → 4TH 07:06 → UNDOADMOB 07:06 → 4TH 08:25 → ICU 11:05 → 4TH 11:05 → ICU 11:06 → 4TH 11:06 → ICU 11:48 → 4TH 12-13 11:59 → OBSVTOIN 12-13 13:23 → INTOOBSV 12-13 13:23 → UNDODISIN 12-17 12:30
PROVIDERS: ADMIT Family Medicine; ATTEND Family Medicine
DX: S52.511A Displaced fracture of right radial styloid process, initial encounter for closed fracture (principal); S52.512A Displaced fracture of left radial styloid process, initial encounter for closed fracture; J44.1 Chronic obstructive pulmonary disease with (acute) exacerbation; J96.11 Chronic respiratory failure with hypoxia; J96.12 Chronic respiratory failure with hypercapnia; J98.11 Atelectasis; I48.0 Paroxysmal atrial fibrillation; I25.10 Atherosclerotic heart disease of native coronary artery without angina pectoris; Z66 Do not resuscitate; I10 Essential (primary) hypertension; E11.65 Type 2 diabetes mellitus with hyperglycemia; D72.829 Elevated white blood cell count, unspecified; T38.0X5A Adverse effect of glucocorticoids and synthetic analogues, initial encounter; E78.00 Pure hypercholesterolemia, unspecified; I73.9 Peripheral vascular disease, unspecified; K21.9 Gastro-esophageal reflux disease without esophagitis; E03.9 Hypothyroidism, unspecified; M81.0 Age-related osteoporosis without current pathological fracture; K59.00 Constipation, unspecified; S00.33XA Contusion of nose, initial encounter; W18.09XA Striking against other object with subsequent fall, initial encounter; Y92.009 Unspecified place in unspecified non-institutional (private) residence as the place of occurrence of the external cause; Z85.118 Personal history of other malignant neoplasm of bronchus and lung; Z99.81 Dependence on supplemental oxygen; Z79.82 Long term (current) use of aspirin; Z79.84 Long term (current) use of oral hypoglycemic drugs; Z87.891 Personal history of nicotine dependence; Z95.1 Presence of aortocoronary bypass graft; Z95.5 Presence of coronary angioplasty implant and graft; Z92.21 Personal history of antineoplastic chemotherapy
CPT/HCPCS: 36415; 51702; 70450; 70486; 71045; 71260; 72125; 72170; 74177; 80048; 80053; 81000; 82550; 82805; 82962; 83735; 83880; 84100; 84439; 84443; 85025; 93005; 93041; 94640; 94660; 94760; G0378

== ENCOUNTER 2018-01-01 09:08 | Inpatient (IN) | payer MEDICARE, OTHER ==
[~2018-01-01] VITALS: Ht 160 cm; Wt 42.8 kg
[~2018-01-01 09:08] MED LIST changes: +CHOL20002 PO; +INSU100V16 SQ; +PRD20T PO
[2018-01-01 09:28] LABS: BASOPHILS % (AUTO) 0 % (0-10); EOSINOPHILS % (AUTO) 1 % (0-10); HEMATOCRIT 32 % (35-52); HEMOGLOBIN 9.8 G/DL (11.5-16.0); LYMPHOCYTES # (AUTO) 0.5 X 10^3 (1.0-4.0); LYMPHOCYTES % (AUTO) 7 % (12-44); MEAN CORPUSCULAR HEMOGLOBIN 32 PG (25-34); MEAN CORPUSCULAR HGB CONC 31 G/DL (32-36); MEAN CORPUSCULAR VOLUME 103 FL (80-99); MEAN PLATELET VOLUME 9.5 FL (7.4-10.4); MONOCYTES # (AUTO) 0.7 X 10^3 (0.0-1.0); MONOCYTES % (AUTO) 11 % (0-12); NEUTROPHILS # (AUTO) 5.1 X 10^3 (1.8-7.8); NEUTROPHILS % (AUTO) 81 % (42-75); PLATELET COUNT 364 10^3/uL (130-400); RED CELL DISTRIBUTION WIDTH 18.9 % (10.0-14.5); WHITE BLOOD COUNT 6.3 10^3/uL (4.3-11.0)
--- NOTE | 2018-01-01 09:28 | ED Respiratory ---
General Chief Complaint: Respiratory Problems Stated Complaint: RESP DISTRESS Source: patient, EMS Exam Limitations: no limitations History of Present Illness Date Seen by Provider: Jan 01, 2018 Time Seen by Provider: 09:10 Initial Comments The patient presents to the ER by EMS with chief complaint she's coming from [facility] and staff reported she had an oxygen saturation 68% on 4 L by nasal cannula. She says she at baseline uses 4 L nasal cannula has a history of COPD history of small cell carcinoma of the lung status post radiation and chemotherapy in remission. She had used steroids for her COPD about 2 weeks ago. She has steroid-induced diabetes and a history of coronary artery disease status post CABG. She's having some midline xiphoid process area chest pain that she is described as having since having her CABG done years ago. The pain is not worse on deep inspiration. She also has been having a productive loose cough and EMS reports a normal blood sugar and rhonchorous breath sounds. She has received 2 reading treatments by nebulizer this morning by staff at the long-term. EMS said when they arrived they put her on a nonrebreather at 10 L /m with an oxygen saturation of 100% so they reduce that down to a nasal cannula with end-tidal CO2 of 20 and oxygen flow rate of 3 L/m. With this she was still satting 98-100%. The patient is on Eliquis. Allergies and Home Medications Allergies Coded Allergies: Penicillins (Verified Allergy, Severe, ANAPHYLAXIS, 09/04/16) hydrochlorothiazide (Verified Allergy, Intermediate, RASH, 01/29/17) penicillin G (Verified Allergy, Unknown, 09/04/16) Home Medications Albuterol Sulfate 2.5 Mg/3 Ml Vial.neb, 2.5 MG NEB Q6H PRN for SHORTNESS OF BREATH, (Reported) Alendronate Sodium 70 Mg Tablet, 70 MG PO SATURDAY, (Reported) Apixaban 2.5 Mg Tablet, 2.5 MG PO BID, (Reported) Aspirin 81 Mg Tablet.dr, 81 MG PO DAILY, (Reported) Atorvastatin Calcium 40 Mg Tablet, 40 MG PO HS, (Reported) Calcium Carbonate 500 Mg Tablet, 500 MG PO BID, (Reported) Cetirizine HCl 10 Mg Tablet, 10 MG PO HS, (Reported) Cholecalciferol (Vitamin D3) 2,000 Unit Capsule, 2,000 UNIT PO DAILY, (Reported) Diltiazem HCl 240 Mg Cap.er.24h, 240 MG PO DAILY, (Reported) Furosemide 20 Mg Tablet, 20 MG PO DAILY, (Reported) Insulin Aspart 100 Unit/1 Ml Susp, 1-15 UNIT SQ AC Glucose Level (mg/ dL) Low Dose 60-180 0 181-200 0 201-250 3 251- 300 5 301-350 7 351-400 9 Greater than 400 call provider Prescribed by: WEST MCCAULEY on 12/17/17 1153 Levothyroxine Sodium 50 Mcg Tablet, 50 MCG PO DAILY, (Reported) Metformin HCl 500 Mg Tablet, 500 MG PO BID WITH MEALS, (Reported) Metoprolol Tartrate 50 Mg Tablet, 50 MG PO BID, (Reported) Multivits,Stress Formula 1 Each Tablet, 1 TAB PO DAILY, (Reported) Pantoprazole Sodium 40 Mg Tablet.dr, 40 MG PO DAILY, (Reported) Potassium Chloride 10 Meq Capsule.er, 10 MEQ PO DAILY, (Reported) Prednisone 20 Mg Tab, 20 MG PO DAILY Prescribed by: NICCI MORTON on 12/17/17 1150 Promethazine HCl/Codeine 118 Ml Syrup, 10 ML PO TID PRN for COUGH, (Reported) Patient Home Medication List Home Medication List Reviewed: Yes Review of Systems Review of Systems Constitutional: No chills, No diaphoresis, No fever; malaise EENTM: No ear pain, No eye pain Respiratory: No cough, No short of breath Cardiovascular: see HPI, chest pain; No edema; Hx of Intervention; No palpitations, No syncope; vascular heart diseas Gastrointestinal: No abdominal pain, No constipation, No diarrhea, No nausea Genitourinary: No discharge, No dysuria Musculoskeletal: No back pain, No joint pain Skin: No pruritus, No rash Psychiatric/Neurological: Denies Headache, Denies Numbness, Denies Paresthesia Past Krrybxm-Hpuarc-Lxfdrf Hx Patient Social History Alcohol Use: Denies Use Recreational Drug Use: No Smoking Status: Former Smoker Type Used: Cigarettes Former Smoker, Quit: Jan 28, 2013 Recent Hopitalizations: No Immunizations Up To Date Tetanus Booster (TDap): Unknown PED Vaccines UTD: Yes Date of Pneumonia Vaccine: Jan 07, 2016 Date of Influenza Vaccine: Jan 06, 2017 Seasonal Allergies Seasonal Allergies: Yes Past Medical History Surgeries: Yes Cardiac, CABG, Coronary Stent, Lobectomy, Orthopedic, Vascular Surgery Respiratory: Yes (chronic hypoxia) Pneumonia, Chronic Bronchitis, COPD Currently Using CPAP: No Currently Using BIPAP: No Cardiac: Yes Atrial Fibrillation, Coronary Artery Disease, High Cholesterol, Hypertension, Peripheral Vascular Neurological: No Reproductive Disorders: Yes (26 YRS. 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 Sexually Transmitted Disease: No HIV/AIDS: No Genitourinary: No Gastrointestinal: Yes ("BUTTERFLY" HERNIA) Abdominal Hernia, Gastroesophageal Reflux Musculoskeletal: Yes (RIGHT HIP FX/ORIF) Osteoporosis, Arthritis, Fractures Endocrine: Yes Hypothyroidsim, Diabetes, Non-Insulin dep HEENT: Yes Cataract Loss of Vision: Denies Hearing Impairment: Denies Cancer: Yes Lung Did You Recieve Any Treatments: Yes What Type of Treatment Did You: Chemotherapy, Radiation, Surgical Intervention Psychosocial: Yes Anxiety Integumentary: No Blood Disorders: No Adverse Reaction/Blood Tranf: No Family Medical History Chest pain 09 SISTER Congestive heart failure G-MA Family history: Cardiovascular disease 03 FATHER (68) 09 SISTER Family history: Hypertension 03 FATHER 09 SISTER G-MA Stroke No Pertinent Family Hx Physical Exam Vital Signs - First Documented 01/01/18 01/01/18 09:10 09:35 Temp 98.3 Pulse 105 Resp 26 B/P (MAP) 158/104 (122) Pulse Ox 94 O2 Delivery Nasal Cannula O2 Flow Rate 3.00 FiO2 35 Capillary Refill : Height: 5'1.00" Weight: 102lbs. 0.8oz. 46.435135gy; 19.3 BMI Method:Estimated General Appearance: WD/WN, moderate distress HEENT: PERRL/EOMI; No pharynx normal (oral mucosa is dry) Neck: non-tender, normal inspection Respiratory: chest non-tender, respiratory distress (moderate), accessory muscle use (moderate), rales, rhonchi, wheezing (scant bilateral) Cardiovascular: normal peripheral pulses, regular rate, rhythm Gastrointestinal: normal bowel sounds, non tender, soft Extremities: no pedal edema, no calf tenderness, normal capillary refill Neurologic/Psychiatric: alert, normal mood/affect, oriented x 3 Skin: normal color, warm/dry Focused Exam Lactate Level 01/01/18 09:15: Lactic Acid Level 1.95 Lactic Acid Level Laboratory Tests Test 01/01/18 09:15 Lactic Acid Level 1.95 MMOL/L (0.50-2.00) Progress/Results/Core Measures Suspected Sepsis SIRS Temperature: Pulse: Respiratory Rate: Laboratory Tests 01/01/18 09:15: White Blood Count 6.3 Blood Pressure / Mean: 01/01/18 09:15: Lactic Acid Level 1.95 Laboratory Tests 01/01/18 09:15: Creatinine 0.71, INR Comment 1.1, Platelet Count 364, Total Bilirubin 0.6 Results/Orders Lab Results Laboratory Tests Test 01/01/18 09:15 01/01/18 09:19 01/01/18 11:05 Range/Units White Blood Count 6.3 4.3-11.0 10^3/uL Red Blood Count 3.10 L 4.35-5.85 10^6/uL Hemoglobin 9.8 L 11.5-16.0 G/DL Hematocrit 32 L 35-52 % Mean Corpuscular Volume 103 H 80-99 FL Mean Corpuscular Hemoglobin 32 25-34 PG Mean Corpuscular Hemoglobin Concent 31 L 32-36 G/DL Red Cell Distribution Width 18.9 H 10.0-14.5 % Platelet Count 364 130-400 10^3/uL Mean Platelet Volume 9.5 7.4-10.4 FL Neutrophils (%) (Auto) 81 H 42-75 % Lymphocytes (%) (Auto) 7 L 12-44 % Monocytes (%) (Auto) 11 0-12 % Eosinophils (%) (Auto) 1 0-10 % Basophils (%) (Auto) 0 0-10 % Neutrophils # (Auto) 5.1 1.8-7.8 X 10^3 Lymphocytes # (Auto) 0.5 L 1.0-4.0 X 10^3 Monocytes # (Auto) 0.7 0.0-1.0 X 10^3 Eosinophils # (Auto) 0.0 0.0-0.3 10^3/uL Basophils # (Auto) 0.0 0.0-0.1 10^3/uL Neutrophils % (Manual) 77 % Lymphocytes % (Manual) 7 % Monocytes % (Manual) 14 % Eosinophils % (Manual) 1 % Basophils % (Manual) 0 % Band Neutrophils 1 % Polychromasia SLIGHT Anisocytosis SLIGHT Macrocytosis SLIGHT Prothrombin Time 14.6 12.2-14.7 SEC INR Comment 1.1 0.8-1.4 Activated Partial Thromboplast Time 27 24-35 SEC Sodium Level 139 135-145 MMOL/L Potassium Level 4.1 3.6-5.0 MMOL/L Chloride Level 92 L 98-107 MMOL/L Carbon Dioxide Level 38 H 21-32 MMOL/L Anion Gap 9 5-14 MMOL/L Blood Urea Nitrogen 18 7-18 MG/DL Creatinine 0.71 0.60-1.30 MG/DL Estimat Glomerular Filtration Rate > 60 BUN/Creatinine Ratio 25 Glucose Level 158 H 70-105 MG/DL Lactic Acid Level 1.95 0.50-2.00 MMOL/L Calcium Level 9.0 8.5-10.1 MG/DL Corrected Calcium 9.2 8.5-10.1 MG/DL Total Bilirubin 0.6 0.1-1.0 MG/DL Aspartate Amino Transf (AST/SGOT) 35 H 5-34 U/L Alanine Aminotransferase (ALT/SGPT) 53 0-55 U/L Alkaline Phosphatase 171 H 40-136 U/L Troponin I < 0.30 <0.30 NG/ML Total Protein 6.7 6.4-8.2 GM/DL Albumin 3.7 3.2-4.5 GM/DL Blood Gas Puncture Site RT BRACH Blood Gas Patient Temperature 98.4 Arterial Blood pH 7.35 L 7.37-7.43 Arterial Blood Partial Pressure CO2 78 *H 35-45 MMHG Arterial Blood Partial Pressure O2 45 L 79-93 MMHG Arterial Blood HCO3 42 *H 23-27 MMOL/L Arterial Blood Total CO2 44.4 H 21.0-31.0 MMOL/L Arterial Blood Oxygen Saturation 48 L 94-100 % Arterial Blood Base Excess 15.7 H -2.5-2.5 MMOL/L Bruce Test NA Blood Gas Ventilator Setting NO Blood Gas Inspired Oxygen 4L Urine Color YELLOW Urine Clarity SLIGHTLY CLOUDY Urine pH 5 5-9 Urine Specific Douglas 1.020 1.016-1.022 Urine Protein 2+ H NEGATIVE Urine Glucose (UA) 3+ H NEGATIVE Urine Ketones NEGATIVE NEGATIVE Urine Nitrite NEGATIVE NEGATIVE Urine Bilirubin NEGATIVE NEGATIVE Urine Urobilinogen NORMAL NORMAL MG/DL Urine Leukocyte Esterase 1+ H NEGATIVE Urine RBC (Auto) NEGATIVE NEGATIVE Urine RBC NONE /HPF Urine WBC 2-5 /HPF Urine Squamous Epithelial Cells 5-10 /HPF Urine Crystals NONE /LPF Urine Bacteria TRACE /HPF Urine Casts NONE /LPF Urine Mucus NEGATIVE /LPF Urine Culture Indicated NO My Orders Orders - DIYA RIVERA Cbc With Automated Diff (01/01/18 09:18) Comprehensive Metabolic Panel (01/01/18 09:18) Blood Culture (01/01/18 09:18) Sputum Culture (01/01/18 09:18) Urinalysis (01/01/18 09:18) Urine Culture (01/01/18 09:18) Protime With Inr (01/01/18:18) Partial Thromboplastin Time (01/01/18 09:18) Chest 1 View, Ap/Pa Only (01/01/18 09:18) Saline Lock/Iv-Start (01/01/18 09:18) Saline Lock/Iv-Start (01/01/18 09:18) Troponin I (01/01/18 09:18) Vital Signs Adult Sepsis Patie Q15M (01/01/18 09:18) O2 (01/01/18 09:18) Remove Rings In Anticipation O (01/01/18 09:18) Lactic Acid Analyzer (01/01/18 09:18) Ns Iv 1000 Ml (Sodium Chloride 0.9%) (01/01/18 09:30) Cefepime Injection (Maxipime Injection) (01/01/18 09:30) Ekg Tracing (01/01/18:18) Continuous Ekg Monitoring (01/01/18 09:18) Arterial Blood Gas (01/01/18 09:21) Albuterol/Ipra Inhalation Soln (Duoneb I (01/01/18 09:30) Rt Request For Service (01/01/18 09:21) Svn Small Volume Nebulizer (01/01/18 09:21) Manual Differential (01/01/18 09:15) Aspirin Chewable Tablet (Baby Aspirin Ch (01/01/18 09:45) Methylprednisolone Sod Succ (Solu-Medrol (01/01/18 11:45) Medications Given in ED Current Medications Medications Dose Ordered Sig/Imelda Route Start Time Stop Time Status Last Admin Dose Admin Albuterol/ Ipratropium 3 ml ONCE ONCE INH 01/01/18 09:30 01/01/18 09:31 DC 01/01/18 09:34 3 ML Aspirin 324 mg ONCE ONCE PO 01/01/18 09:45 01/01/18 09:46 DC 01/01/18 09:47 324 MG Cefepime HCl 1000 mg/Sodium Chloride 50 ml @ 100 mls/hr ONCE ONCE IV 01/01/18 09:30 01/01/18 09:59 DC 01/01/18 09:49 100 MLS/HR Sodium Chloride 1,000 ml @ 1,000 mls/hr ONCE ONCE IV 01/01/18 09:30 01/01/18 10:29 DC 01/01/18 09:48 1,000 MLS/HR Vital Signs/I&O 01/01/18 01/01/18 01/01/18 09:10 09:15 09:35 Temp 98.3 Pulse 105 Resp 26 B/P (MAP) 158/104 (122) Pulse Ox 94 93 O2 Delivery Nasal Cannula Nasal Cannula Vapotherm O2 Flow Rate 3.00 3.00 20.00 FiO2 35 Capillary Refill : Progress Note : Time: 09:31 Progress Note Patient's in [id number] respiratory distress really get an ABG put her on Vapotherm as a seems to be more of ventilatory problems she has increased work of breathing with good oxygenation with only a low 4 L on nasal cannula. She's putting out pretty high end-tidal CO2 20-25. With her tachycardia this could be from her albuterol inhalers versus sepsis. She is not febrile but we'll go ahead and obtain blood cultures sputum culture and a chest x-ray treat her with presumptive pneumonia. She's had cefepime before with her last admission for COPD/pneumonia so we will elect to use that again. Her chest pain with a history of CAD could be coronary in nature but may also be from her increased work of breathing. It's not reproducible on palpation to her chest wall or abdomen. We have an unremarkable looking EKG and will order a troponin as well. We'll give her some aspirin to chew up and swallow. ECG Initial ECG Impression Date: Jan 01, 2018 Initial ECG Impression Time: 09:24 Initial ECG Rate: 100 Initial ECG Rhythm: S.Tach Initial ECG Intervals: Normal Initial ECG Impression: Normal, Nonspecific Changes Comment No ST elevation or depression. Diagnostic Imaging Diagonstic Imaging: Xray Plain Films/CT/US/NM/MRI: chest (1v) Comments [facility] [place], [place] NAME: JUAN FRANCISCO [facility] REC#: [id number] PT STATUS: REG ER : 1945 PHYSICIAN: DIYA RIVERA MD ADMIT DATE: 01/01/18/ER Draft Date of Exam:01/01/18 CHEST 1 VIEW, AP/PA ONLY INDICATION: Shortness of air. COMPARISON: 12/17/2017. FINDINGS: Air trapping and COPD as chronic findings are present. There is no pleural fluid on followup. There is no evidence for pulmonary edema at today's exam. Some areas of pleural parenchymal scarring, chronic with previous sternotomy stable. Some prominence of the perihilar interstitial lung markings chronic. The previous right middle lobe infiltrate itself is no longer identified. Deformities to the proximal humeri greater right than left unchanged. IMPRESSION: Clearance of the right middle lobe infiltrate resolved pleural fluid. No adverse development. Background chronic pleural-parenchymal changes stable. Chronic deformities of the right greater than left humerus. Dictated on workstation # [id number] Dict: 01/01/18 1021 Trans: 01/01/18 1029 [id number] Interpreted by: FAVIOLA SMITH Electronically signed by: Reviewed: Reviewed by Me Departure Communication (Admissions) Time/Spoke to Admitting Phy: 11:35 Discussed case lab EKG imaging findings with Dr. Mccauley and he agrees to accept the patient. Impression Primary Impression: Acute exacerbation of chronic obstructive pulmonary disease (COPD) Additional Impression: COPD with respiratory distress, acute Disposition: ADMITTED INPATIENT Condition: Improved Admissions Decision to Admit Reason: Admit from ER (General) Decision to Admit/Date: Jan 01, 2018 Time/Decision to Admit Time: 11:38 Departure-Patient Inst. Referrals: WEST MCCAULEY DO (PCP/Family) Primary Care Physician DIYA RIVERA Jan 01, 2018 09:28
[2018-01-01] MEDS ORDERED: RT-ALBUTEROL/IPRATROPIUM 3 ML (DUONEB) VIAL INH ONE (09:30)
[2018-01-01] MEDS ORDERED: NS IV 1000 ML 1,000 ML IV ONE (09:30)
[2018-01-01] MEDS ORDERED: CEFEPIME INJECTION 1,000 MG in NS (IVPB) 50 ML IV ONE (09:30)
[2018-01-01 09:41] LABS: INR 1.1 (0.8-1.4); PROTHROMBIN TIME PATIENT 14.6 SEC (12.2-14.7)
[2018-01-01 09:45] LABS: ALANINE AMINOTRANSFERASE 53 U/L (0-55); ALBUMIN 3.7 GM/DL (3.2-4.5); ALKALINE PHOSPHATASE 171 U/L (40-136); BILIRUBIN,TOTAL 0.6 MG/DL (0.1-1.0); BUN/CREATININE RATIO 25; CARBON DIOXIDE 38 MMOL/L (21-32); CHLORIDE 92 MMOL/L (98-107); CREATININE SERUM 0.71 MG/DL (0.60-1.30); GFR ESTIMATED > 60; GLUCOSE 158 MG/DL (70-105); POTASSIUM 4.1 MMOL/L (3.6-5.0); SODIUM 139 MMOL/L (135-145); TOTAL PROTEIN 6.7 GM/DL (6.4-8.2)
[2018-01-01] MEDS ORDERED: ASPIRIN 81 MG CHEW (CHILDREN'S ASA) PO ONE (09:45)
[2018-01-01 10:10] LABS: ANISOCYTOSIS SLIGHT; BAND NEUTROPHILS 1 %; BASOPHILS % (MANUAL) 0 %; EOSINOPHILS % (MANUAL) 1 %; LYMPHOCYTES % (MANUAL) 7 %; MONOCYTES % (MANUAL) 14 %; NEUTROPHILS % (MANUAL) 77 %; POLYCHROMASIA SLIGHT
--- NOTE | 2018-01-01 10:30 | Diagnostic Imaging Report ---
INDICATION: Shortness of air. COMPARISON: 12/17/2017. FINDINGS: Air trapping and COPD as chronic findings are present. There is no pleural fluid on followup. There is no evidence for pulmonary edema at today's exam. Some areas of pleural parenchymal scarring, chronic with previous sternotomy stable. Some prominence of the perihilar interstitial lung markings chronic. The previous right middle lobe infiltrate itself is no longer identified. Deformities to the proximal humeri greater right than left unchanged. IMPRESSION: Clearance of the right middle lobe infiltrate resolved pleural fluid. No adverse development. Background chronic pleural-parenchymal changes stable. Chronic deformities of the right greater than left humerus. Dictated by: Dictated on workstation # [id number]
[2018-01-01 10:34] LABS: ABG BASE EXCESS 15.7 MMOL/L (-2.5-2.5); ABG OXYGEN SATURATION 48 % (94-100); ABG PH 7.35 (7.37-7.43); ABG PO2 45 MMHG (79-93); ABG TCO2 44.4 MMOL/L (21.0-31.0)
[2018-01-01 10:37] LABS: ABG PCO2 78 MMHG (35-45)
[2018-01-01 10:39] LABS: INSPIRED O2 4L; PATIENT TEMP 98.4; VENTILATOR NO
[2018-01-01 11:16] LABS: BILIRUBIN,URINE NEGATIVE (NEGATIVE); CLARITY,URINE SLIGHTLY CLOUDY; COLOR,URINE YELLOW; GLUCOSE, URINE (UA) 3+ (NEGATIVE); KETONES,URINE NEGATIVE (NEGATIVE); LEUKOCYTE ESTERASE ,URINE 1+ (NEGATIVE); NITRITE,URINE NEGATIVE (NEGATIVE); PH,URINE 5 (5-9); PROTEIN,URINE 2+ (NEGATIVE); UROBILINOGEN,URINE NORMAL (NORMAL)
[2018-01-01 11:25] LABS: BACTERIA,URINE TRACE /HPF
[2018-01-01] MEDS ORDERED: methylPREDNISolone 125 MG (Solu-MEDROL) VIAL IVP ONE (11:45)
[2018-01-01 12:14] VITALS: BP 152/78
[2018-01-01] MEDS ORDERED: ACETAMINOPHEN 500 MG TAB (TYLENOL) PO PRN (12:15)
[2018-01-01] MEDS: NS W/KCL 20 MEQ/L 1,000 ML IV SCH ×2 (12:25→21:18)
[2018-01-01] MEDS ORDERED: ONDANSETRON 4 MG/2 ML (SDV) Z0FRAN IV PRN (12:30)
[2018-01-01] MEDS ORDERED: FLU QUADRIvalent (5+ YOA) 2018-2019 (AFLURIA) 0.5 ML IM ONE (13:30)
[2018-01-01 13:38] VITALS: BP 152/78
[2018-01-01] MEDS ORDERED: FAMO20TA3 PO (14:07)
[2018-01-01] MEDS ORDERED: RT-ALBUTEROL/IPRATROPIUM 3 ML (DUONEB) VIAL INH PRN (14:15)
[2018-01-01] MEDS ORDERED: ALBU2.5V4 NEB (14:32)
[2018-01-01] MEDS ORDERED: METO50TA15 PO (14:32)
[2018-01-01] MEDS ORDERED: INSU100I14 SQ (14:32)
[2018-01-01] MEDS ORDERED: HYDR-3812 PO (14:32)
[2018-01-01] MEDS ORDERED: CODE118S4 PO (14:32)
[2018-01-01] MEDS ORDERED: ALPR0.25 PO (14:32)
[2018-01-01] MEDS ORDERED: PANT40TA2 PO (14:32)
[2018-01-01 16:00] VITALS: BP 142/79
[2018-01-01] MEDS: inSUlin ASPART (NovoLOG) 1 UNIT/0.01 ML (CHARGE PER UNIT) SC SCH ×2 (16:42→21:18)
[2018-01-01] MEDS: RT-ALBUTEROL/IPRATROPIUM 3 ML (DUONEB) VIAL INH SCH ×2 (19:01→22:03)
--- NOTE | 2018-01-01 19:07 | History & Physicial ---
History of Present Illness History of Present Illness Reason for visit/HPI Patient resident of [facility]. Patient's pulse ox 68 and 4 L of nasal oxygen. Patient short of breath. Patient brought to emergency room by EMS area Patient has history of CAD, CABG. Patient has productive loose cough. Patient has history of lung cancer that is in remission. Patient had a previous history of smoking. Patient has history of COPD with oxygen at 4 L Date of Admission Jan 01, 2018 at 11:55 Time Seen by a Provider: 19:06 I consulted on this patient on 01/01/18 18:45 Attending Physician Sanju Mccauley DO Admitting Physician Sanju Mccauley DO Consult Allergies and Home Medications Allergies Coded Allergies: Penicillins (Verified Allergy, Severe, ANAPHYLAXIS, 09/04/16) hydrochlorothiazide (Verified Allergy, Intermediate, RASH, 01/29/17) penicillin G (Verified Allergy, Unknown, 09/04/16) Home Medications Albuterol Sulfate 2.5 Mg/3 Ml Vial.neb, 2.5 MG NEB Q4H PRN for SHORTNESS OF BREATH, (Reported) Alendronate Sodium 70 Mg Tablet, 70 MG PO Sa, (Reported) Alprazolam 0.25 Mg Tablet, 0.25 MG PO Q12H PRN for ANXIETY, (Reported) Apixaban 2.5 Mg Tablet, 2.5 MG PO BID, (Reported) Aspirin 81 Mg Tablet.dr, 81 MG PO DAILY, (Reported) Atorvastatin Calcium 40 Mg Tablet, 40 MG PO HS, (Reported) Calcium Carbonate 500 Mg Tablet, 500 MG PO BID, (Reported) Cetirizine HCl 10 Mg Tablet, 10 MG PO HS, (Reported) Cholecalciferol (Vitamin D3) 2,000 Unit Capsule, 2,000 UNIT PO DAILY, (Reported) Diltiazem HCl 240 Mg Cap.er.24h, 240 MG PO DAILY, (Reported) Famotidine 20 Mg Tablet, 20 MG PO BID, (Reported) Furosemide 20 Mg Tablet, 20 MG PO DAILY, (Reported) Hydrocodone/Acetaminophen 1 Each Tablet, 1 TAB PO Q8H PRN for PAIN-MODERATE, ( Reported) Insulin Aspart 300 Units/3 Ml Solution, SQ AC, (Reported) 0-200 = 0 UNITS 201-250= 3 UNITS 251-300= 5 UNITS 301-350= 7 UNITS 351-400= 9 UNITS >400= CALL PCP Levothyroxine Sodium 50 Mcg Tablet, 50 MCG PO 1400, (Reported) Metformin HCl 500 Mg Tablet, 500 MG PO BID WITH MEALS, (Reported) Metoprolol Tartrate 50 Mg Tablet, 50 MG PO BID, (Reported) Multivits,Stress Formula 1 Each Tablet, 1 TAB PO DAILY, (Reported) Pantoprazole Sodium 40 Mg Tablet.dr, 40 MG PO 1400, (Reported) Potassium Chloride 10 Meq Capsule.er, 10 MEQ PO DAILY, (Reported) Promethazine HCl/Codeine 118 Ml Syrup, 10 ML PO Q8H PRN for COUGH, (Reported) Patient Home Medication List Home Medication List Reviewed: Yes Past Kozhqka-Qabrbh-Updwto Hx Patient Social History Marrital Status: Employed/Student: retired Alcohol Use: Denies Use Recreational Drug Use: No Smoking Status: Former Smoker Former Smoker, Quit: Jan 28, 2013 Type Used: Cigarettes Physical Abuse Screen: No Sexual Abuse: No Recent Foreign Travel: No Contact w/other who traveled: No Recent Hopitalizations: Yes (ED FOR FALL) Recent Infectious Disease Expo: No Immunizations Up To Date Tetanus Booster (TDap): Unknown Pediatric: Yes Date of Pneumonia Vaccine: Jan 07, 2016 Date of Influenza Vaccine: Jan 06, 2017 Seasonal Allergies Seasonal Allergies: Yes Surgeries Yes Cardiac, CABG, Coronary Stent, Lobectomy, Orthopedic, Vascular Surgery Respiratory Yes (chronic hypoxia) COPD, Pneumonia Currently Using CPAP: No Currently Using BIPAP: No Cardiovascular Yes Atrial Fibrillation, Coronary Artery Disease, High Cholesterol, Hypertension, Peripheral Vascular Neurological No Reproductive System Hx Reproductive Disorders: Yes (26 YRS. 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 Genitourinary No Gastrointestinal Yes ("BUTTERFLY" HERNIA) Abdominal Hernia, Gastroesophageal Reflux Musculoskeletal Yes (RIGHT HIP FX/ORIF) Osteoporosis, Arthritis, Fractures Endocrine History of Endocrine Disorders: Yes Endocrine Disorders: Hypothyroidsim, Diabetes, Non-Insulin dep HEENT History of HEENT Disorders: Yes HEENT Disorders: Cataract Loss of Vision: Denies Hearing Impairment: Denies Cancer Yes Lung Did You Recieve Any Treatments: Yes Type of Treatment: Chemotherapy, Radiation, Surgical Intervention Psychosocial History of Psychiatric Problem: Yes Behavioral Health Disorders: Anxiety Integumentary History of Skin or Integumenta: No Blood Transfusions History of Blood Disorders: No Adverse Reaction to a Blood Tr: No Family Medical History Significant Family History: No Pertinent Family Hx Family Hx: Chest pain 09 SISTER Congestive heart failure G-MA Family history: Cardiovascular disease 03 FATHER (68) 09 SISTER Family history: Hypertension 03 FATHER 09 SISTER G-MA Stroke Review of Systems Constitutional: weakness EENTM: no symptoms reported Respiratory: dyspnea on exertion, short of breath Cardiovascular: no symptoms reported, other (Routine chest pain) Gastrointestinal: no symptoms reported Genitourinary: no symptoms reported Physical Exam Vital Signs Vital Signs - First Documented 01/01/18 01/01/18 09:10 09:35 Temp 98.3 Pulse 105 Resp 26 B/P (MAP) 158/104 (122) Pulse Ox 94 O2 Delivery Nasal Cannula O2 Flow Rate 3.00 FiO2 35 Capillary Refill : Less Than 3 Seconds Height, Weight, BMI Height: 5'3.00" Weight: 102lbs. 0.0oz. 46.320758id; 18.1 BMI Method:Estimated General Appearance: No Apparent Distress, Thin Eyes: Bilateral Eye Normal Inspection HEENT: Normal ENT Inspection Neck: Normal Inspection, Non Tender Respiratory: No Accessory Muscle Use, No Respiratory Distress, Decreased Breath Sounds Cardiovascular: Regular Rate, Rhythm, No Murmur Gastrointestinal: Non Tender, Soft Assessment/Plan Assessment and Plan COPD with acute exacerbation. COPD with respiratory distress. Lung cancer in remission. Tired. Coronary artery disease. Diabetes. CABG history Admission Diagnosis Admission Status: Inpatient Order (span 2 midnights) Reason for Inpatient Admission: COPD with respiratory distress. COPD with acute exacerbation. Diet. History of lung cancer in remission. Coronary artery disease Clinical Quality Measures DVT/VTE Risk/Contraindication: Risk Factor Score Per Nursin RFS Level Per Nursing on Admit: 2=Moderate SANJU MCCAULEY DO Jan 01, 2018 19:06
[2018-01-01 19:25] VITALS: BP 137/70
[2018-01-01] MEDS ORDERED: meTOprolol TARTRATE 25 MG (LOPRESSOR) TABLET PO SCH (21:00)
[2018-01-01] MEDS ORDERED: APIXABAN 2.5 MG (ELIQUIS) TABLET PO SCH (21:00)
[2018-01-01] MEDS ORDERED: NON-FORMULARY MEDICATION 1 EA EA (Famotidine (Acid Reducer (FAMOTIDINE)) 20 MG) PO SCH (21:00)
[2018-01-01] MEDS: APIXABAN 2.5 MG (ELIQUIS) TABLET PO SCH (21:18)
[2018-01-01] MEDS: ALPRAZolam 0.25 MG (XANAX) TAB PO PRN (21:18)
[2018-01-01] MEDS: FAMOTIDINE 20 MG (PEPCID) TABLET PO SCH (21:19)
[2018-01-01] MEDS: meTOprolol TARTRATE 50 MG (LOPRESSOR) TAB PO SCH (21:19)
[2018-01-01] MEDS: ATORVASTATIN 40 MG (LIPITOR) TABLET PO SCH (21:19)
[2018-01-01 23:58] VITALS: BP 143/82
[2018-01-02] MEDS: RT-ALBUTEROL/IPRATROPIUM 3 ML (DUONEB) VIAL INH SCH ×5 (02:03→21:30)
[2018-01-02 04:15] VITALS: BP 157/83
[2018-01-02] MEDS: NS W/KCL 20 MEQ/L 1,000 ML IV SCH (04:39)
[2018-01-02] MEDS: metFORMIN 500 MG (GLUCOPHAGE) TAB PO SCH ×2 (06:25→16:04)
[2018-01-02] MEDS: inSUlin ASPART (NovoLOG) 1 UNIT/0.01 ML (CHARGE PER UNIT) SC SCH ×4 (06:25→20:49)
[2018-01-02 06:29] LABS: BASOPHILS % (AUTO) 0 % (0-10); EOSINOPHILS % (AUTO) 0 % (0-10); HEMATOCRIT 33 % (35-52); HEMOGLOBIN 9.4 G/DL (11.5-16.0); LYMPHOCYTES # (AUTO) 0.3 X 10^3 (1.0-4.0); LYMPHOCYTES % (AUTO) 4 % (12-44); MEAN CORPUSCULAR HEMOGLOBIN 31 PG (25-34); MEAN CORPUSCULAR HGB CONC 29 G/DL (32-36); MEAN CORPUSCULAR VOLUME 106 FL (80-99); MEAN PLATELET VOLUME 9.8 FL (7.4-10.4); MONOCYTES # (AUTO) 0.7 X 10^3 (0.0-1.0); MONOCYTES % (AUTO) 10 % (0-12); NEUTROPHILS # (AUTO) 5.6 X 10^3 (1.8-7.8); NEUTROPHILS % (AUTO) 85 % (42-75); PLATELET COUNT 377 10^3/uL (130-400); RED BLOOD COUNT 3.08 10^6/uL (4.35-5.85); RED CELL DISTRIBUTION WIDTH 19.6 % (10.0-14.5); WHITE BLOOD COUNT 6.6 10^3/uL (4.3-11.0)
[2018-01-02] MEDS ORDERED: LEVOTHYROXINE 50 MCG (LEVOTHROID) TAB PO SCH (06:30)
[2018-01-02 06:55] LABS: BUN/CREATININE RATIO 26; CALCIUM 8.3 MG/DL (8.5-10.1); CARBON DIOXIDE 34 MMOL/L (21-32); CHLORIDE 103 MMOL/L (98-107); CREATININE SERUM 0.69 MG/DL (0.60-1.30); GFR ESTIMATED > 60; GLUCOSE 239 MG/DL (70-105); SODIUM 141 MMOL/L (135-145)
[2018-01-02 06:58] LABS: POTASSIUM 5.6 MMOL/L (3.6-5.0)
[2018-01-02] MEDS ORDERED: NON-FORMULARY MEDICATION 1 EA EA (Metformin HCl 500 MG) PO SCH (07:00)
[2018-01-02] MEDS ORDERED: PANTOPRAZOLE 40 MG (PROTONIX) TAB PO SCH (07:00)
[2018-01-02 08:05] VITALS: BP 130/75
--- NOTE | 2018-01-02 08:21 | Progress Note (SOAP) ---
Subjective Time Seen by a Provider: 08:19 Subjective/Events-last exam Patient confused this a.m. Probably has hypercapnia. Patient did not talk to me in the beginning. Patient did coming my name. COPD with acute exacerbation. COPD with respiratory failure. Coronary artery disease. Lung cancer in remission. Hyperkalemia Focused Exam Lactate Level 01/01/18 09:15: Lactic Acid Level 1.95 Objective Exam Vital Signs Date Time Temp Pulse Resp B/P (MAP) Pulse Ox O2 Delivery O2 Flow Rate FiO2 01/02/18 08:05 97.0 90 24 130/75 (93) 97 Nasal Cannula 5.00 01/02/18 07:00 85 01/02/18 06:28 97 Nasal Cannula 5.00 01/02/18 04:15 97.5 87 20 157/83 (107) 96 Nasal Cannula 5.00 01/02/18 02:03 97 Nasal Cannula 5.00 01/02/18 01:13 75 01/01/18 23:58 99.5 81 20 143/82 (102) 97 Nasal Cannula 5.00 01/01/18 22:03 94 Nasal Cannula 5.00 01/01/18 20:49 95 01/01/18 20:00 Nasal Cannula 5.00 01/01/18 19:25 99.2 90 20 137/70 (92) 97 Nasal Cannula 5.00 01/01/18 19:02 96 Nasal Cannula 5.00 01/01/18 16:00 98.5 86 20 142/79 (100) 98 Nasal Cannula 5.00 01/01/18 15:18 83 Room Air 01/01/18 13:38 85 67 01/01/18 13:00 92 01/01/18 12:35 Nasal Cannula 5.00 01/01/18 12:14 96.9 100 22 152/78 (102) 90 Nasal Cannula 2.00 01/01/18 12:00 84 16 125/81 99 01/01/18 09:35 Vapotherm 20.00 35 01/01/18 09:15 93 Nasal Cannula 3.00 01/01/18 09:10 98.3 105 26 158/104 (122) 94 Nasal Cannula 3.00 I & O 01/02/18 07:00 Intake Total 3572 ml Output Total 750 ml Balance 2822 ml Capillary Refill : Less Than 3 Seconds General Appearance: No Apparent Distress, Thin HEENT: Normal ENT Inspection Neck: Normal Inspection Respiratory: No Accessory Muscle Use, No Respiratory Distress, Decreased Breath Sounds Cardiovascular: Regular Rate, Rhythm Gastrointestinal: non tender, soft Results Lab Laboratory Tests 01/01/18 09:15: White Blood Count 6.3, Red Blood Count 3.10L, Hemoglobin 9.8L, Hematocrit 32L, Mean Corpuscular Volume 103H, Mean Corpuscular Hemoglobin 32, Mean Corpuscular Hemoglobin Concent 31L, Red Cell Distribution Width 18.9H, Platelet Count 364, Mean Platelet Volume 9.5, Neutrophils (%) (Auto) 81H, Lymphocytes (%) (Auto) 7L , Monocytes (%) (Auto) 11, Eosinophils (%) (Auto) 1, Basophils (%) (Auto) 0, Neutrophils # (Auto) 5.1, Lymphocytes # (Auto) 0.5L, Monocytes # (Auto) 0.7, Eosinophils # (Auto) 0.0, Basophils # (Auto) 0.0, Neutrophils % (Manual) 77, Lymphocytes % (Manual) 7, Monocytes % (Manual) 14, Eosinophils % (Manual) 1, Basophils % (Manual) 0, Band Neutrophils 1, Polychromasia SLIGHT, Anisocytosis SLIGHT, Macrocytosis SLIGHT, Prothrombin Time 14.6, INR Comment 1.1, Activated Partial Thromboplast Time 27, Sodium Level 139, Potassium Level 4.1, Chloride Level 92L, Carbon Dioxide Level 38H, Anion Gap 9, Blood Urea Nitrogen 18, Creatinine 0.71, Estimat Glomerular Filtration Rate > 60, BUN/Creatinine Ratio 25, Glucose Level 158H, Lactic Acid Level 1.95, Calcium Level 9.0, Corrected Calcium 9.2, Total Bilirubin 0.6, Aspartate Amino Transf (AST/SGOT) 35H, Alanine Aminotransferase (ALT/SGPT) 53, Alkaline Phosphatase 171H, Troponin I < 0.30, Total Protein 6.7, Albumin 3.7 01/01/18 09:19: Blood Gas Puncture Site RT BRACH, Blood Gas Patient Temperature 98.4, Arterial Blood pH 7.35L, Arterial Blood Partial Pressure CO2 78*H, Arterial Blood Partial Pressure O2 45L, Arterial Blood HCO3 42*H, Arterial Blood Total CO2 44.4H, Arterial Blood Oxygen Saturation 48L, Arterial Blood Base Excess 15.7H, Bruce Test NA, Blood Gas Ventilator Setting NO, Blood Gas Inspired Oxygen 4L 01/01/18 11:05: Urine Color YELLOW, Urine Clarity SLIGHTLY CLOUDY, Urine pH 5, Urine Specific [place] 1.020, Urine Protein 2+H, Urine Glucose (UA) 3+H, Urine Ketones NEGATIVE , Urine Nitrite NEGATIVE, Urine Bilirubin NEGATIVE, Urine Urobilinogen NORMAL, Urine Leukocyte Esterase 1+H, Urine RBC (Auto) NEGATIVE, Urine RBC NONE, Urine WBC 2-5, Urine Squamous Epithelial Cells 5-10, Urine Crystals NONE, Urine Bacteria TRACE, Urine Casts NONE, Urine Mucus NEGATIVE, Urine Culture Indicated NO 01/01/18 16:31: Glucometer 318H 01/01/18 20:55: Glucometer 340H 01/02/18 05:21: Glucometer 237H 01/02/18 05:55: White Blood Count 6.6, Red Blood Count 3.08L, Hemoglobin 9.4L, Hematocrit 33L, Mean Corpuscular Volume 106H, Mean Corpuscular Hemoglobin 31, Mean Corpuscular Hemoglobin Concent 29L, Red Cell Distribution Width 19.6H, Platelet Count 377, Mean Platelet Volume 9.8, Neutrophils (%) (Auto) 85H, Lymphocytes (%) (Auto) 4L , Monocytes (%) (Auto) 10, Eosinophils (%) (Auto) 0, Basophils (%) (Auto) 0, Neutrophils # (Auto) 5.6, Lymphocytes # (Auto) 0.3L, Monocytes # (Auto) 0.7, Eosinophils # (Auto) 0.0, Basophils # (Auto) 0.0, Sodium Level 141, Potassium Level 5.6H, Chloride Level 103, Carbon Dioxide Level 34H, Anion Gap 4L, Blood Urea Nitrogen 18, Creatinine 0.69, Estimat Glomerular Filtration Rate > 60, BUN/ Creatinine Ratio 26, Glucose Level 239H, Calcium Level 8.3L, Troponin I < 0.30 Assessment/Plan Assessment/Plan Assess & Plan/Chief Complaint Confusion. Hypercapnia. COPD with acute exacerbation. Lung cancer in remission. CABG. Coronary artery disease Clinical Quality Measures Admission Status Admission Dx COPD with acute exacerbation. COPD with respiratory distress. Lung cancer in remission. Tired. Coronary artery disease. Diabetes. CABG history DVT/VTE Risk/Contraindication: Risk Factor Score Per Nursin RFS Level Per Nursing on Admit: 2=Moderate Contraindications-Pharm: Other *list below* WEST MCCAULEY DO Jan 02, 2018 08:21
[2018-01-02 08:40] LABS: ABG BASE EXCESS 7.7 MMOL/L (-2.5-2.5); ABG OXYGEN SATURATION 98 % (94-100); ABG PO2 98 MMHG (79-93); ABG TCO2 36.5 MMOL/L (21.0-31.0)
[2018-01-02 08:44] LABS: ABG PCO2 74 MMHG (35-45); ABG PH 7.29 (7.37-7.43); ALLENS TEST YES-POS; INSPIRED O2 5L; PATIENT TEMP 98.4; VENTILATOR NO
[2018-01-02] MEDS: NS IV 1000 ML 1,000 ML IV SCH ×3 (08:45→17:08)
[2018-01-02] MEDS ORDERED: NON-FORMULARY MEDICATION 1 EA EA (Diltiazem HCl (Cartia Xt) 240 MG) PO SCH (09:00)
[2018-01-02] MEDS ORDERED: ASPIRIN 81 MG CHEW (CHILDREN'S ASA) PO SCH (09:00)
[2018-01-02] MEDS ORDERED: methylPREDNISolone 40 MG/ML (Solu-MEDROL) VIAL IV SCH ×2 (09:00→21:00)
[2018-01-02] MEDS: DILTIAZEM 240 MG (CARDIZEM CD) CAP PO SCH (10:30)
[2018-01-02] MEDS: meTOprolol TARTRATE 50 MG (LOPRESSOR) TAB PO SCH ×2 (10:30→20:48)
[2018-01-02] MEDS: FUROSEMIDE 20 MG (LASIX) TAB PO SCH (10:31)
[2018-01-02] MEDS: APIXABAN 2.5 MG (ELIQUIS) TABLET PO SCH ×2 (10:31→20:48)
[2018-01-02] MEDS: ASPIRIN E.C. 81 MG (ECOTRIN) TAB PO SCH (10:31)
[2018-01-02 12:00] VITALS: BP 177/97
--- NOTE | 2018-01-02 13:24 | Pulmonary Consultation ---
History of Present Illness History of Present Illness Date of Consultation 01/02/18 13:18 Time Seen by Provider: 13:18 Date of Admission History of Present Illness 72yo with hx of COPD and small cell lung cancer presented to ED via EMS secondary to worsening SOB, productive cough, and hypoxia. T Allergies and Home Medications Allergies Coded Allergies: Penicillins (Verified Allergy, Severe, ANAPHYLAXIS, 09/04/16) hydrochlorothiazide (Verified Allergy, Intermediate, RASH, 01/29/17) penicillin G (Verified Allergy, Unknown, 09/04/16) Home Medications Albuterol Sulfate 2.5 Mg/3 Ml Vial.neb, 2.5 MG NEB Q4H PRN for SHORTNESS OF BREATH, (Reported) Alendronate Sodium 70 Mg Tablet, 70 MG PO Sa, (Reported) Alprazolam 0.25 Mg Tablet, 0.25 MG PO Q12H PRN for ANXIETY, (Reported) Apixaban 2.5 Mg Tablet, 2.5 MG PO BID, (Reported) Aspirin 81 Mg Tablet.dr, 81 MG PO DAILY, (Reported) Atorvastatin Calcium 40 Mg Tablet, 40 MG PO HS, (Reported) Calcium Carbonate 500 Mg Tablet, 500 MG PO BID, (Reported) Cetirizine HCl 10 Mg Tablet, 10 MG PO HS, (Reported) Cholecalciferol (Vitamin D3) 2,000 Unit Capsule, 2,000 UNIT PO DAILY, (Reported) Diltiazem HCl 240 Mg Cap.er.24h, 240 MG PO DAILY, (Reported) Famotidine 20 Mg Tablet, 20 MG PO BID, (Reported) Furosemide 20 Mg Tablet, 20 MG PO DAILY, (Reported) Hydrocodone/Acetaminophen 1 Each Tablet, 1 TAB PO Q8H PRN for PAIN-MODERATE, ( Reported) Insulin Aspart 300 Units/3 Ml Solution, SQ AC, (Reported) 0-200 = 0 UNITS 201-250= 3 UNITS 251-300= 5 UNITS 301-350= 7 UNITS 351-400= 9 UNITS >400= CALL PCP Levothyroxine Sodium 50 Mcg Tablet, 50 MCG PO 1400, (Reported) Metformin HCl 500 Mg Tablet, 500 MG PO BID WITH MEALS, (Reported) Metoprolol Tartrate 50 Mg Tablet, 50 MG PO BID, (Reported) Multivits,Stress Formula 1 Each Tablet, 1 TAB PO DAILY, (Reported) Pantoprazole Sodium 40 Mg Tablet.dr, 40 MG PO 1400, (Reported) Potassium Chloride 10 Meq Capsule.er, 10 MEQ PO DAILY, (Reported) Promethazine HCl/Codeine 118 Ml Syrup, 10 ML PO Q8H PRN for COUGH, (Reported) Past [id number] Hx Patient Social History Alcohol Use: Denies Use Recreational Drug Use: No Smoking Status: Former Smoker Type Used: Cigarettes Former Smoker, Quit: Jan 28, 2013 Recent Foreign Travel: No Contact w/Someone Who Travel: No Recent Infectious Disease Expo: No Recent Hopitalizations: Yes (ED FOR FALL) Physical Abuse: No Sexual Abuse: No Immunizations Up To Date Tetanus Booster (TDap): Unknown PED Vaccines UTD: Yes Date of Pneumonia Vaccine: Jan 07, 2016 Date of Influenza Vaccine: Jan 06, 2017 Seasonal Allergies Seasonal Allergies: Yes Past Medical History Surgeries: Yes Cardiac, CABG, Coronary Stent, Lobectomy, Orthopedic, Vascular Surgery Respiratory: Yes (chronic hypoxia) Pneumonia, Chronic Bronchitis, COPD Currently Using CPAP: No Currently Using BIPAP: No Cardiac: Yes Atrial Fibrillation, Coronary Artery Disease, High Cholesterol, Hypertension, Peripheral Vascular Neurological: No Reproductive Disorders: Yes (26 YRS. 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 Sexually Transmitted Disease: No HIV/AIDS: No Genitourinary: No Gastrointestinal: Yes ("BUTTERFLY" HERNIA) Abdominal Hernia, Gastroesophageal Reflux Musculoskeletal: Yes (RIGHT HIP FX/ORIF) Osteoporosis, Arthritis, Fractures Endocrine: Yes Hypothyroidsim, Diabetes, Non-Insulin dep HEENT: Yes Cataract Loss of Vision: Denies Hearing Impairment: Denies Cancer: Yes Lung Did You Recieve Any Treatments: Yes What Type of Treatment Did You: Chemotherapy, Radiation, Surgical Intervention Psychosocial: Yes Anxiety Integumentary: No Blood Disorders: No Adverse Reaction/Blood Tranf: No Family Medical History Chest pain 09 SISTER Congestive heart failure G-MA Family history: Cardiovascular disease 03 FATHER (68) 09 SISTER Family history: Hypertension 03 FATHER 09 SISTER G-MA Stroke No Pertinent Family Hx Sepsis Event Evaluation Height, Weight, BMI Height: 5'3.00" Weight: 114lbs. 0.0oz. 51.743603ri; 18.1 BMI Method:Estimated Exam Exam Vital Signs Date Time Temp Pulse Resp B/P (MAP) Pulse Ox O2 Delivery O2 Flow Rate FiO2 01/02/18 13:00 107 9/27/18 09:57 81 22 96 35.00 01/02/18 08:55 83 23 98 35.00 01/02/18 08:05 97.0 90 24 130/75 (93) 97 Nasal Cannula 5.00 01/02/18 07:00 85 01/02/18 06:28 97 Nasal Cannula 5.00 01/02/18 04:15 97.5 87 20 157/83 (107) 96 Nasal Cannula 5.00 01/02/18 02:03 97 Nasal Cannula 5.00 01/02/18 01:13 75 01/01/18 23:58 99.5 81 20 143/82 (102) 97 Nasal Cannula 5.00 01/01/18 22:03 94 Nasal Cannula 5.00 01/01/18 20:49 95 01/01/18 20:00 Nasal Cannula 5.00 01/01/18 19:25 99.2 90 20 137/70 (92) 97 Nasal Cannula 5.00 01/01/18 19:02 96 Nasal Cannula 5.00 01/01/18 16:00 98.5 86 20 142/79 (100) 98 Nasal Cannula 5.00 01/01/18 15:18 83 Room Air 01/01/18 13:38 85 67 I & O 01/02/18 07:00 Intake Total 3572 ml Output Total 750 ml Balance 2822 ml Height & Weight Height: 5'3.00" Weight: 114lbs. 0.0oz. 51.340448ie; 18.1 BMI Method:Estimated General Appearance: No Apparent Distress, Thin HEENT: Normal ENT Inspection Neck: Normal Inspection Respiratory: No Accessory Muscle Use, No Respiratory Distress, Decreased Breath Sounds Cardiovascular: Regular Rate, Rhythm Capillary Refill: Less Than 3 Seconds Gastrointestinal: non tender, soft Results Lab Laboratory Tests 01/01/18 09:15 01/02/18 05:55 Assessment/Plan Assessment/Plan Pneumonia -Continue current Abx COPDAE -ALFREDNS -ALTAGRACIA Kunz DO Jan 02, 2018 13:24
[2018-01-02] MEDS: PANTOPRAZOLE 40 MG (PROTONIX) TAB PO SCH (14:11)
[2018-01-02] MEDS: LEVOTHYROXINE 50 MCG (LEVOTHROID) TAB PO SCH (14:11)
[2018-01-02 15:29] VITALS: BP 144/81
[2018-01-02 19:40] VITALS: BP 144/70
[2018-01-02] MEDS: ATORVASTATIN 40 MG (LIPITOR) TABLET PO SCH (20:48)
[2018-01-02] MEDS: ALPRAZolam 0.25 MG (XANAX) TAB PO PRN (20:48)
[2018-01-02] MEDS: FAMOTIDINE 20 MG (PEPCID) TABLET PO SCH (20:49)
[2018-01-03] VITALS: BP 131/76
[2018-01-03] MEDS: RT-ALBUTEROL/IPRATROPIUM 3 ML (DUONEB) VIAL INH SCH ×11 (00:51→22:35)
[2018-01-03] MEDS: NS IV 1000 ML 1,000 ML IV SCH (02:49)
[2018-01-03 04:00] VITALS: BP 138/70
[2018-01-03] MEDS: metFORMIN 500 MG (GLUCOPHAGE) TAB PO SCH ×2 (05:57→17:16)
[2018-01-03] MEDS: inSUlin ASPART (NovoLOG) 1 UNIT/0.01 ML (CHARGE PER UNIT) SC SCH ×4 (05:57→20:42)
[2018-01-03 05:58] LABS: BASOPHILS % (AUTO) 0 % (0-10); EOSINOPHILS % (AUTO) 0 % (0-10); HEMATOCRIT 31 % (35-52); HEMOGLOBIN 9.4 G/DL (11.5-16.0); LYMPHOCYTES # (AUTO) 0.2 X 10^3 (1.0-4.0); LYMPHOCYTES % (AUTO) 3 % (12-44); MEAN CORPUSCULAR HEMOGLOBIN 33 PG (25-34); MEAN CORPUSCULAR HGB CONC 31 G/DL (32-36); MEAN CORPUSCULAR VOLUME 106 FL (80-99); MONOCYTES # (AUTO) 0.2 X 10^3 (0.0-1.0); MONOCYTES % (AUTO) 3 % (0-12); NEUTROPHILS # (AUTO) 7.1 X 10^3 (1.8-7.8); NEUTROPHILS % (AUTO) 95 % (42-75); PLATELET COUNT 354 10^3/uL (130-400); RED BLOOD COUNT 2.89 10^6/uL (4.35-5.85); RED CELL DISTRIBUTION WIDTH 19.6 % (10.0-14.5); WHITE BLOOD COUNT 7.5 10^3/uL (4.3-11.0)
[2018-01-03 06:32] LABS: ALANINE AMINOTRANSFERASE 93 U/L (0-55); ALBUMIN 3.2 GM/DL (3.2-4.5); ALKALINE PHOSPHATASE 165 U/L (40-136); BILIRUBIN,TOTAL 0.6 MG/DL (0.1-1.0); BUN/CREATININE RATIO 26; CALCIUM 8.3 MG/DL (8.5-10.1); CARBON DIOXIDE 30 MMOL/L (21-32); CHLORIDE 102 MMOL/L (98-107); CREATININE SERUM 0.69 MG/DL (0.60-1.30); GFR ESTIMATED > 60; GLUCOSE 266 MG/DL (70-105); POTASSIUM 4.7 MMOL/L (3.6-5.0); SODIUM 138 MMOL/L (135-145); TOTAL PROTEIN 5.8 GM/DL (6.4-8.2)
--- NOTE | 2018-01-03 07:06 | Progress Note (SOAP) ---
Subjective Time Seen by a Provider: 07:06 Focused Exam Lactate Level 01/01/18 09:15: Lactic Acid Level 1.95 Objective Exam Vital Signs Date Time Temp Pulse Resp B/P (MAP) Pulse Ox O2 Delivery O2 Flow Rate FiO2 01/03/18 04:00 99.5 74 18 138/70 (92) 96 Nasal Cannula 4.00 01/03/18 02:38 Nasal Cannula 4.00 01/03/18 01:24 71 22 95 35.00 01/03/18 01:00 75 01/03/18 00:00 96.7 82 18 131/76 (94) 82 Nasal Cannula 4.00 01/02/18 20:00 Nasal Cannula 4.00 01/02/18 19:40 97.7 87 18 144/70 (94) 92 Nasal Cannula 4.00 01/02/18 19:00 86 01/02/18 15:29 97.0 91 20 144/81 (102) 91 Nasal Cannula 4.00 01/02/18 14:39 97 Nasal Cannula 4.00 01/02/18 13:00 107 01/02/18 12:00 98.6 95 24 177/97 (123) 98 NIV Bilevel 01/02/18 09:57 81 22 96 35.00 01/02/18 08:55 83 23 98 35.00 01/02/18 08:05 97.0 90 24 130/75 (93) 97 Nasal Cannula 5.00 01/02/18 08:00 99 Nasal Cannula 4.00 I & O 01/03/18 07:00 Intake Total 2952 ml Output Total 1450 ml Balance 1502 ml Capillary Refill : Less Than 3 SecondsLess Than 3 Seconds General Appearance: No Apparent Distress, Thin HEENT: Normal ENT Inspection Neck: Full Range of Motion Cardiovascular: Regular Rate, Rhythm Results Lab Laboratory Tests 01/02/18 08:26: Blood Gas Puncture Site LT RAD, Blood Gas Patient Temperature 98.4, Arterial Blood pH 7.29*L, Arterial Blood Partial Pressure CO2 74*H, Arterial Blood Partial Pressure O2 98H, Arterial Blood HCO3 34H, Arterial Blood Total CO2 36.5H , Arterial Blood Oxygen Saturation 98, Arterial Blood Base Excess 7.7H, Bruce Test YES-POS, Blood Gas Ventilator Setting NO, Blood Gas Inspired Oxygen 5L 01/02/18 11:51: Glucometer 194H 01/02/18 15:32: Glucometer 248H 01/02/18 20:21: Glucometer 199H 01/03/18 05:06: Glucometer 253H 01/03/18 05:25: White Blood Count 7.5, Red Blood Count 2.89L, Hemoglobin 9.4L, Hematocrit 31L, Mean Corpuscular Volume 106H, Mean Corpuscular Hemoglobin 33, Mean Corpuscular Hemoglobin Concent 31L, Red Cell Distribution Width 19.6H, Platelet Count 354, Mean Platelet Volume 10.0, Neutrophils (%) (Auto) 95H, Lymphocytes (%) (Auto) 3L , Monocytes (%) (Auto) 3, Eosinophils (%) (Auto) 0, Basophils (%) (Auto) 0, Neutrophils # (Auto) 7.1, Lymphocytes # (Auto) 0.2L, Monocytes # (Auto) 0.2, Eosinophils # (Auto) 0.0, Basophils # (Auto) 0.0, Sodium Level 138, Potassium Level 4.7, Chloride Level 102, Carbon Dioxide Level 30, Anion Gap 6, Blood Urea Nitrogen 18, Creatinine 0.69, Estimat Glomerular Filtration Rate > 60, BUN/ Creatinine Ratio 26, Glucose Level 266H, Calcium Level 8.3L, Corrected Calcium 8.9, Total Bilirubin 0.6, Aspartate Amino Transf (AST/SGOT) 51H, Alanine Aminotransferase (ALT/SGPT) 93H, Alkaline Phosphatase 165H, Total Protein 5.8L, Albumin 3.2 Microbiology 01/01/18 Blood Culture - Preliminary, Resulted No growth 01/01/18 Urine Culture - Final, Complete See Comments Assessment/Plan Assessment/Plan Assess & Plan/Chief Complaint Confusion. Hypercapnia. COPD with acute exacerbation. Lung cancer in remission. CABG. Coronary artery disease Clinical Quality Measures Admission Status Admission Dx COPD with acute exacerbation. COPD with respiratory distress. Lung cancer in remission. Tired. Coronary artery disease. Diabetes. CABG history DVT/VTE Risk/Contraindication: Risk Factor Score Per Nursin RFS Level Per Nursing on Admit: 2=Moderate Contraindications-Pharm: Other *list below* WEST MCCAULEY DO Jan 03, 2018 07:06
[2018-01-03] MEDS ORDERED: FUROSEMIDE 20 MG (LASIX) TAB PO NR (07:30)
[2018-01-03 08:00] VITALS: BP 141/83
[2018-01-03] MEDS ORDERED: methylPREDNISolone 40 MG/ML (Solu-MEDROL) VIAL IV SCH (08:00)
[2018-01-03] MEDS: meTOprolol TARTRATE 50 MG (LOPRESSOR) TAB PO SCH ×2 (08:21→20:40)
[2018-01-03] MEDS: ASPIRIN E.C. 81 MG (ECOTRIN) TAB PO SCH (08:22)
[2018-01-03] MEDS: FUROSEMIDE 20 MG (LASIX) TAB PO SCH (08:23)
[2018-01-03] MEDS: DILTIAZEM 240 MG (CARDIZEM CD) CAP PO SCH (08:23)
--- NOTE | 2018-01-03 08:30 | Pulmonary Progress Note ---
Subjective Time Seen by a Provider: 08:30 Subjective/Events-last exam Pt's ABG looks worse today however she feels slightly improved. Sepsis Event Evaluation Height, Weight, BMI Height: 5'3.00" Weight: 115lbs. 4.0oz. 52.105875zh; 18.1 BMI Method:Estimated Focused Exam Lactate Level 01/01/18 09:15: Lactic Acid Level 1.95 Exam Exam Vital Signs Date Time Temp Pulse Resp B/P (MAP) Pulse Ox O2 Delivery O2 Flow Rate FiO2 01/03/18 08:02 96 Nasal Cannula 4.00 01/03/18 07:00 79 01/03/18 04:00 99.5 74 18 138/70 (92) 96 Nasal Cannula 4.00 01/03/18 02:38 Nasal Cannula 4.00 01/03/18 01:24 71 22 95 35.00 01/03/18 01:00 75 01/03/18 00:00 96.7 82 18 131/76 (94) 82 Nasal Cannula 4.00 01/02/18 20:00 Nasal Cannula 4.00 01/02/18 19:40 97.7 87 18 144/70 (94) 92 Nasal Cannula 4.00 01/02/18 19:00 86 01/02/18 15:29 97.0 91 20 144/81 (102) 91 Nasal Cannula 4.00 01/02/18 14:39 97 Nasal Cannula 4.00 01/02/18 13:00 107 01/02/18 12:00 98.6 95 24 177/97 (123) 98 NIV Bilevel 01/02/18 09:57 81 22 96 35.00 01/02/18 08:55 83 23 98 35.00 I & O 01/03/18 07:00 Intake Total 2952 ml Output Total 1450 ml Balance 1502 ml Height & Weight Height: 5'3.00" Weight: 115lbs. 4.0oz. 52.945427rx; 18.1 BMI Method:Estimated General Appearance: No Apparent Distress, Thin HEENT: Normal ENT Inspection Neck: Full Range of Motion Respiratory: No Accessory Muscle Use, No Respiratory Distress, Decreased Breath Sounds Cardiovascular: Regular Rate, Rhythm Capillary Refill: Less Than 3 Seconds Gastrointestinal: non tender, soft Results Lab Laboratory Tests 01/01/18 09:15 01/02/18 05:55 01/03/18 05:25 Assessment/Plan Assessment/Plan Pneumonia - improving -Continue omnicef Acute respiratory failure -Place patient on BiPAP -Will give an extra 40mg of Lasix -Hep lock IVF -Increase SVNS to Q2hrs -SOlumedrol 40 IV Q 6 -Pt may need to transfer to ICU. COPDAE -SVNS -Solumedrol -Oxygen Pulmonary edema -BNP is >2000 -ALTAGRACIA Lobo DO Jan 03, 2018 08:30
[2018-01-03] MEDS: APIXABAN 2.5 MG (ELIQUIS) TABLET PO SCH ×2 (08:46→20:40)
[2018-01-03] MEDS ORDERED: FUROSEMIDE 20 MG (LASIX) TAB PO SCH (09:00)
[2018-01-03 09:02] LABS: ABG BASE EXCESS 4.1 MMOL/L (-2.5-2.5); ABG OXYGEN SATURATION 94 % (94-100); ABG PCO2 69 MMHG (35-45); ABG PO2 75 MMHG (79-93); ABG TCO2 33.2 MMOL/L (21.0-31.0)
[2018-01-03 09:03] LABS: ABG PH 7.26 (7.37-7.43); ALLENS TEST POSITIVE
[2018-01-03 09:04] LABS: INSPIRED O2 4 L; PATIENT TEMP 96.2; VENTILATOR NO
[2018-01-03] MEDS ORDERED: FUROSEMIDE 40 MG/4 ML INJ (LASIX) IVP NR (09:15)
[2018-01-03] MEDS: CEFDINIR 300 MG (OMNICEF) CAP PO SCH ×2 (09:26→20:40)
--- NOTE | 2018-01-03 10:27 | Diagnostic Imaging Report ---
INDICATION: COPD exacerbation. TECHNIQUE: Single view chest 5:53 AM. CORRELATION STUDY: 01/01/2018 FINDINGS: Poststernotomy changes. Heart size enlarged. Vasculature is increased from prior study. Prominent ill-defined appearance about the hilar structures. Increasing interstitial changes likely component of edema. Increasing areas of atelectasis, edema and/or infiltrate about the lung bases right greater than left. Small effusions. Chronic appearing deformities bilateral shoulders. IMPRESSION: 1. Appears to be adversely changes likely congestive heart failure. Vascular congestion along with mild interstitial edema. Superimposed areas of atelectasis, infiltrate and edema about the lung base along with effusions. Dictated by: Dictated on workstation # [id number]
[2018-01-03 12:00] VITALS: BP 138/88
[2018-01-03] MEDS: methylPREDNISolone 40 MG/ML (Solu-MEDROL) VIAL IV SCH ×2 (12:09→17:16)
[2018-01-03] MEDS: LEVOTHYROXINE 50 MCG (LEVOTHROID) TAB PO SCH (14:20)
[2018-01-03] MEDS: PANTOPRAZOLE 40 MG (PROTONIX) TAB PO SCH (14:20)
[2018-01-03 16:10] VITALS: BP 138/83
[2018-01-03 19:50] VITALS: BP 130/73
[2018-01-03] MEDS: FAMOTIDINE 20 MG (PEPCID) TABLET PO SCH (20:40)
[2018-01-04] VITALS (9 sets, daily range): BP systolic 114–147; BP diastolic 78–106
[2018-01-04] MEDS: methylPREDNISolone 40 MG/ML (Solu-MEDROL) VIAL IV SCH ×5 (00:35→23:50)
[2018-01-04] MEDS: RT-ALBUTEROL/IPRATROPIUM 3 ML (DUONEB) VIAL INH SCH ×8 (00:41→22:31)
[2018-01-04] MEDS ORDERED: meTOprolol TARTRATE 50 MG (LOPRESSOR) TAB PO ONE (04:00)
[2018-01-04] MEDS: ALPRAZolam 0.25 MG (XANAX) TAB PO PRN ×2 (04:09→05:24)
[2018-01-04 05:38] LABS: BASOPHILS % (AUTO) 0 % (0-10); EOSINOPHILS % (AUTO) 0 % (0-10); HEMATOCRIT 33 % (35-52); HEMOGLOBIN 9.7 G/DL (11.5-16.0); LYMPHOCYTES # (AUTO) 0.2 X 10^3 (1.0-4.0); LYMPHOCYTES % (AUTO) 2 % (12-44); MEAN CORPUSCULAR HEMOGLOBIN 31 PG (25-34); MEAN CORPUSCULAR HGB CONC 29 G/DL (32-36); MEAN CORPUSCULAR VOLUME 105 FL (80-99); MONOCYTES # (AUTO) 0.3 X 10^3 (0.0-1.0); MONOCYTES % (AUTO) 4 % (0-12); NEUTROPHILS # (AUTO) 6.9 X 10^3 (1.8-7.8); NEUTROPHILS % (AUTO) 94 % (42-75); PLATELET COUNT 393 10^3/uL (130-400); RED BLOOD COUNT 3.18 10^6/uL (4.35-5.85); RED CELL DISTRIBUTION WIDTH 19.2 % (10.0-14.5); WHITE BLOOD COUNT 7.3 10^3/uL (4.3-11.0)
[2018-01-04 05:58] LABS: ALANINE AMINOTRANSFERASE 87 U/L (0-55); ALBUMIN 3.4 GM/DL (3.2-4.5); ALKALINE PHOSPHATASE 162 U/L (40-136); BILIRUBIN,TOTAL 0.7 MG/DL (0.1-1.0); BUN/CREATININE RATIO 27; CALCIUM 8.5 MG/DL (8.5-10.1); CARBON DIOXIDE 31 MMOL/L (21-32); CHLORIDE 97 MMOL/L (98-107); CREATININE SERUM 0.71 MG/DL (0.60-1.30); GFR ESTIMATED > 60; GLUCOSE 248 MG/DL (70-105); POTASSIUM 4.2 MMOL/L (3.6-5.0); SODIUM 139 MMOL/L (135-145); TOTAL PROTEIN 6.1 GM/DL (6.4-8.2)
[2018-01-04] MEDS: inSUlin ASPART (NovoLOG) 1 UNIT/0.01 ML (CHARGE PER UNIT) SC SCH ×4 (06:21→20:55)
[2018-01-04] MEDS: metFORMIN 500 MG (GLUCOPHAGE) TAB PO SCH ×2 (06:21→17:46)
--- NOTE | 2018-01-04 07:41 | Pulmonary Progress Note ---
Subjective Time Seen by a Provider: 07:40 Subjective/Events-last exam PT is doing better today. Sepsis Event Evaluation Height, Weight, BMI Height: 5'3.00" Weight: 113lbs. 4.0oz. 51.077654bl; 18.1 BMI Method:Estimated Focused Exam Lactate Level 01/01/18 09:15: Lactic Acid Level 1.95 Exam Exam Vital Signs Date Time Temp Pulse Resp B/P (MAP) Pulse Ox O2 Delivery O2 Flow Rate FiO2 01/04/18 07:00 126 01/04/18 05:30 117 132/106 (115) 99 NIV Bilevel 01/04/18 04:50 144 16 140/88 (105) 97 NIV Bilevel 01/04/18 04:38 153 14 94 35.00 01/04/18 03:45 97.3 151 16 147/88 (107) 97 NIV Bilevel 01/04/18 02:55 145 17 95 35.00 01/04/18 01:00 142 01/04/18 00:42 92 21 92 35.00 01/04/18 00:15 98.4 116 20 130/88 (102) 95 Nasal Cannula 4.50 01/03/18 22:39 100 21 96 35.00 01/03/18 20:28 99 Nasal Cannula 4.50 01/03/18 20:00 99 Nasal Cannula 4.00 01/03/18 19:50 97.0 93 16 130/73 (92) 97 Nasal Cannula 4.50 01/03/18 19:00 89 01/03/18 18:37 95 Nasal Cannula 4.50 01/03/18 16:38 94 Nasal Cannula 4.50 01/03/18 16:10 96.5 84 20 138/83 (101) 96 NIV Bilevel 01/03/18 14:56 74 20 97 35.00 01/03/18 13:00 74 01/03/18 12:16 84 20 98 35.00 01/03/18 12:00 98.6 86 18 138/88 (105) 98 NIV Bilevel 01/03/18 10:20 75 20 96 35.00 01/03/18 09:27 83 20 100 35.00 01/03/18 08:02 96 Nasal Cannula 4.00 01/03/18 08:00 98.8 89 18 141/83 (102) 100 Nasal Cannula 4.00 01/03/18 08:00 Nasal Cannula 4.00 01/03/18 08:00 99 Nasal Cannula 4.00 I & O 01/04/18 07:00 Intake Total 2815 ml Output Total 3125 ml Balance -310 ml Height & Weight Height: 5'3.00" Weight: 113lbs. 4.0oz. 51.154842ew; 18.1 BMI Method:Estimated General Appearance: No Apparent Distress, Thin HEENT: Normal ENT Inspection Neck: Full Range of Motion Respiratory: No Accessory Muscle Use, No Respiratory Distress, Decreased Breath Sounds Cardiovascular: Regular Rate, Rhythm Capillary Refill: Less Than 3 Seconds Gastrointestinal: non tender, soft Results Lab Laboratory Tests 01/03/18 05:25 01/04/18 05:20 Assessment/Plan Assessment/Plan Pneumonia - improving -Continue omnicef Acute respiratory failure with pneumonia and pulmonary edema - BiPAP PRN -40mg of Lasix daily - improved after lasix -Hep lock IVF -Increase SVNS to Q2hrs -SOlumedrol 40 IV Q 6 COPDAE -SVNS -Solumedrol -Oxygen Pulmonary edema -BNP is >2000 -ALTAGRACIA Lobo DO Jan 04, 2018 07:41
[2018-01-04] MEDS: CEFDINIR 300 MG (OMNICEF) CAP PO SCH ×2 (09:19→20:54)
[2018-01-04] MEDS: ASPIRIN E.C. 81 MG (ECOTRIN) TAB PO SCH (09:19)
[2018-01-04] MEDS: FUROSEMIDE 40 MG/4 ML INJ (LASIX) IVP SCH (09:19)
[2018-01-04] MEDS: APIXABAN 2.5 MG (ELIQUIS) TABLET PO SCH ×2 (09:19→20:54)
[2018-01-04] MEDS: meTOprolol TARTRATE 50 MG (LOPRESSOR) TAB PO SCH ×2 (09:20→20:54)
[2018-01-04] MEDS: DILTIAZEM 240 MG (CARDIZEM CD) CAP PO SCH (09:20)
--- NOTE | 2018-01-04 12:30 | Progress Note-Hospitalist ---
Subjective HPI/CC On Admission Date Seen by Provider: Jan 04, 2018 Time Seen by Provider: 11:00 Subjective/Events-last exam Patient about the same Used biPAP last night Wants to go home Fall risk Bed alarm in place Review of Systems Pulmonary: Dyspnea, Cough Neurological: Confusion Objective Exam Vital Signs Vital Signs Date Time Temp Pulse Resp B/P (MAP) Pulse Ox O2 Delivery O2 Flow Rate FiO2 01/04/18 11:00 92 Nasal Cannula 3.00 01/04/18 08:00 99.8 127 24 119/84 (96) 01/01/18 09:35 35 Capillary Refill : Less Than 3 SecondsLess Than 3 Seconds General Appearance: No Apparent Distress, WD/WN Respiratory: Chest Non Tender, No Accessory Muscle Use, No Respiratory Distress , Crackles, Decreased Breath Sounds, Wheezing Neurologic/Psychiatric: Alert, Oriented x3, No Motor/Sensory Deficits, Normal Mood/Affect Results/Procedures Lab Laboratory Tests 01/04/18 05:20 Patient resulted labs reviewed. Assessment/Plan Assessment and Plan Assess & Plan/Chief Complaint Assessment: AECOPD Confusion Tachycardia Poor prognosis AF Plan: biPAP Likely hospice candidate Diagnosis/Problems Diagnosis/Problems (1) Acute exacerbation of chronic obstructive pulmonary disease (COPD) Status: Acute (2) Poor prognosis Status: Acute (3) PAF (paroxysmal atrial fibrillation) Status: Chronic (4) Hyperglycemia Status: Acute Clinical Quality Measures DVT/VTE Risk/Contraindication: Risk Factor Score Per Nursin RFS Level Per Nursing on Admit: 2=Moderate Contraindications-Pharm: Other *list below* GLYNN BECKER DO Jan 04, 2018 12:30
[2018-01-04] MEDS: PANTOPRAZOLE 40 MG (PROTONIX) TAB PO SCH (14:09)
[2018-01-04] MEDS: LEVOTHYROXINE 50 MCG (LEVOTHROID) TAB PO SCH (14:09)
--- NOTE | 2018-01-04 14:38 | Diagnostic Imaging Report ---
EXAMINATION: CHEST (PA AND LATERAL) CLINICAL INDICATION: 72-year-old female, shortness of breath. Chronic obstructive pulmonary disease. COMPARISON: January 03, 2018. FINDINGS: There are median sternotomy wires. Stable overall appearance of the cardiomediastinal silhouette. There is no identified pneumothorax. There is blunting of the left lateral costophrenic angle which is a change since the comparison exam. There is likely a small left pleural effusion. There are streaky opacities in the right lung base which appear mildly increased. There is a nodular opacity projecting over the left lower lobe and also at the level of the left breast which potentially could reflect a nipple shadow. This is not present on the prior exam. Streaky right parahilar opacities are unchanged. There are sutures overlying the right upper lobe. There are fracture deformities of the right and left proximal humerus. IMPRESSION: 1. Interval increase in streaky opacities in the right lung base which may reflect infiltrate and/or atelectasis. 2. New blunting of the left lateral costophrenic angle likely reflecting a small left pleural effusion and/or airspace consolidative process. 3. Unchanged streaky right parahilar opacities. Dictated by: Dictated on workstation # [id number]
[2018-01-04] MEDS: FAMOTIDINE 20 MG (PEPCID) TABLET PO SCH (20:55)
[2018-01-05] VITALS (16 sets, daily range): BP systolic 107–156; BP diastolic 64–102
[2018-01-05] MEDS ORDERED: meTOprolol TARTRATE 50 MG (LOPRESSOR) TAB PO ONE (00:45)
[2018-01-05] MEDS: RT-ALBUTEROL/IPRATROPIUM 3 ML (DUONEB) VIAL INH SCH ×6 (02:17→22:13)
[2018-01-05] MEDS ORDERED: DILTIAZEM 240 MG (CARDIZEM CD) CAP PO ONE (03:00)
--- NOTE | 2018-01-05 04:08 | Pulmonary Progress Note ---
Subjective Time Seen by a Provider: 04:37 Subjective/Events-last exam pt has had tachycardia throughout the night. Sepsis Event Evaluation Height, Weight, BMI Height: 5'3.00" Weight: 113lbs. 7.0oz. 51.221128sb; 18.1 BMI Method:Estimated Exam Exam Vital Signs Date Time Temp Pulse Resp B/P (MAP) Pulse Ox O2 Delivery O2 Flow Rate FiO2 01/05/18 02:45 153 01/05/18 02:17 152 17 98 35.00 01/05/18 02:00 144 01/05/18 01:15 144 01/05/18 01:04 159 01/05/18 00:36 140 01/05/18 00:12 153 18 95 35.00 01/05/18 00:05 158 01/04/18 23:50 98.1 158 18 133/89 (104) 99 Nasal Cannula 3.00 01/04/18 22:31 160 20 97 35.00 01/04/18 20:23 99.2 163 20 135/80 (98) 95 Nasal Cannula 3.00 01/04/18 20:00 Nasal Cannula 3.00 01/04/18 18:33 94 Nasal Cannula 3.00 01/04/18 18:26 160 01/04/18 16:34 99.1 149 20 123/86 (98) 92 Nasal Cannula 3.00 01/04/18 15:10 98 Nasal Cannula 3.00 01/04/18 13:00 136 01/04/18 12:00 126 01/04/18 12:00 98.7 149 16 114/78 (90) 90 Nasal Cannula 3.00 01/04/18 11:00 92 Nasal Cannula 3.00 01/04/18 08:00 99 Nasal Cannula 4.00 01/04/18 08:00 99.8 127 24 119/84 (96) 94 Nasal Cannula 3.00 01/04/18 07:41 98 Nasal Cannula 4.50 01/04/18 07:00 126 01/04/18 05:30 117 132/106 (115) 99 NIV Bilevel 01/04/18 04:50 144 16 140/88 (105) 97 NIV Bilevel 01/04/18 04:38 153 14 94 35.00 I & O 01/05/18 07:00 Intake Total 1482 ml Output Total 1950 ml Balance -468 ml Height & Weight Height: 5'3.00" Weight: 113lbs. 7.0oz. 51.329594qk; 18.1 BMI Method:Estimated General Appearance: No Apparent Distress, Anxious, Chronically ill, Mild Distress, Thin HEENT: Normal ENT Inspection Neck: Full Range of Motion Respiratory: No Accessory Muscle Use, No Respiratory Distress, Decreased Breath Sounds Cardiovascular: Regular Rate, Rhythm Capillary Refill: Less Than 3 Seconds Gastrointestinal: non tender, soft Neurologic/Psychiatric: Alert, Oriented x3, No Motor/Sensory Deficits, Normal Mood/Affect Results Lab Laboratory Tests 01/03/18 05:25 01/04/18 05:20 Assessment/Plan Assessment/Plan Pneumonia - improving -omnicef Acute respiratory failure with pneumonia and pulmonary edema - BiPAP PRN -SVNS Q4 -SOlumedrol 40 IV Q 6 Tachycardia probably Afib rvr - pt does have a hx of Afib -She is already on Eliquis -check EKG -Pt already received Cardizem and Lopressor PO -Check Labs and CXR COPDAE -SVNS -Solumedrol -Oxygen Pulmonary edema -BNP is >2000 -ALTAGRACIA Lobo DO Jan 05, 2018 4:08 am
[2018-01-05 05:00] LABS: BASOPHILS % (AUTO) 0 % (0-10); EOSINOPHILS % (AUTO) 0 % (0-10); HEMATOCRIT 32 % (35-52); HEMOGLOBIN 9.6 G/DL (11.5-16.0); LYMPHOCYTES # (AUTO) 0.2 X 10^3 (1.0-4.0); LYMPHOCYTES % (AUTO) 3 % (12-44); MEAN CORPUSCULAR HEMOGLOBIN 31 PG (25-34); MEAN CORPUSCULAR HGB CONC 30 G/DL (32-36); MEAN CORPUSCULAR VOLUME 105 FL (80-99); MONOCYTES # (AUTO) 0.3 X 10^3 (0.0-1.0); MONOCYTES % (AUTO) 5 % (0-12); NEUTROPHILS # (AUTO) 6.4 X 10^3 (1.8-7.8); NEUTROPHILS % (AUTO) 93 % (42-75); PLATELET COUNT 394 10^3/uL (130-400); RED BLOOD COUNT 3.07 10^6/uL (4.35-5.85); RED CELL DISTRIBUTION WIDTH 19.2 % (10.0-14.5); WHITE BLOOD COUNT 6.9 10^3/uL (4.3-11.0)
[2018-01-05] MEDS ORDERED: NS IV 500 ML 500 ML IV ONE (05:00)
[2018-01-05 05:18] LABS: ALANINE AMINOTRANSFERASE 70 U/L (0-55); ALBUMIN 3.3 GM/DL (3.2-4.5); ALKALINE PHOSPHATASE 141 U/L (40-136); BILIRUBIN,TOTAL 0.6 MG/DL (0.1-1.0); BUN/CREATININE RATIO 32; CALCIUM 8.5 MG/DL (8.5-10.1); CARBON DIOXIDE 32 MMOL/L (21-32); CHLORIDE 97 MMOL/L (98-107); CREATININE SERUM 0.78 MG/DL (0.60-1.30); GFR ESTIMATED > 60; GLUCOSE 242 MG/DL (70-105); POTASSIUM 4.3 MMOL/L (3.6-5.0); SODIUM 140 MMOL/L (135-145); TOTAL PROTEIN 5.8 GM/DL (6.4-8.2)
[2018-01-05] MEDS: methylPREDNISolone 40 MG/ML (Solu-MEDROL) VIAL IV SCH ×3 (06:05→17:16)
[2018-01-05] MEDS: inSUlin ASPART (NovoLOG) 1 UNIT/0.01 ML (CHARGE PER UNIT) SC SCH ×4 (06:05→21:14)
[2018-01-05] MEDS: metFORMIN 500 MG (GLUCOPHAGE) TAB PO SCH ×2 (06:23→17:16)
--- NOTE | 2018-01-05 08:19 | Diagnostic Imaging Report ---
Indication: Shortness of breath and COPD exacerbation. Comparison made with prior examination of 01/04/2019. Findings: There is cardiomegaly. There are patchy bibasilar infiltrates. No pneumothorax. The mediastinum is unremarkable. There has been a previous median sternotomy. There are small bilateral pleural effusions. Impression: Patchy bibasilar atelectasis pneumonitis and small bilateral pleural effusions. Mild central venous pulmonary congestion. Dictated by: Dictated on workstation # [id number]
[2018-01-05] MEDS: APIXABAN 2.5 MG (ELIQUIS) TABLET PO SCH ×2 (09:06→21:14)
[2018-01-05] MEDS: meTOprolol TARTRATE 50 MG (LOPRESSOR) TAB PO SCH ×2 (09:06→21:14)
[2018-01-05] MEDS: DILTIAZEM 240 MG (CARDIZEM CD) CAP PO SCH (09:06)
[2018-01-05] MEDS: ASPIRIN E.C. 81 MG (ECOTRIN) TAB PO SCH (09:07)
[2018-01-05] MEDS: CEFDINIR 300 MG (OMNICEF) CAP PO SCH ×2 (09:10→21:14)
--- NOTE | 2018-01-05 09:22 | Consultation-Cardiology ---
HPI-Cardiology Cardiology Consultation Date of Consultation 01/05/18 Date of Admission Time Seen by Provider: 09:19 Indication: atrial fibrillation with rapid ventricular response HPI 72 years old lady with history of coronary artery disease, COPD and history of lung cancer that has been in remission. Patient was admitted from [facility] for increasing shortness of breath and hypoxemia. She has been having cough productive. On admission she was in sinus rhythm. Yesterday she went to atrial fibrillation with rapid ventricular response while she was on Cardizem orally. She admitted having dyspnea, denied any chest pain. Denied any palpitation, syncope or near syncopal episodes. Denied any claudications Home Medications & Allergies Allergies: Coded Allergies: Penicillins (Verified Allergy, Severe, ANAPHYLAXIS (Pt has received Cefazolin & Cefepime w/o issue), 01/03/18) hydrochlorothiazide (Verified Allergy, Intermediate, RASH, 01/29/17) penicillin G (Verified Allergy, Unknown, 09/04/16) Home Medication List Reviewed: Yes [id number] Hx Patient Social History Marital Status: Employed/Student: retired Alcohol Use: Denies Use Recreational Drug Use: No Smoking Status: Former Smoker Former smoker/When Quit: Jul 11, 2012 Type Used: Cigarettes Recent Foreign Travel: No Recent Infectious Disease Expo: No Recent Hopitalizations: Yes (ED FOR FALL) Physical Abuse Screen: No Sexual Abuse: No Immunizations Up To Date Tetanus Booster (TDap): Unknown Date of Pneumonia Vaccine: Jan 07, 2016 Date of Influenza Vaccine: Jan 06, 2017 Past Medical History past medical history as described below Family Medical History Significant Family History: No Pertinent Family Hx Family History: Chest pain 09 SISTER Congestive heart failure G-MA Family history: Cardiovascular disease 03 FATHER (68) 09 SISTER Family history: Hypertension 03 FATHER 09 SISTER G-MA Stroke Review of Systems Constitutional: see HPI, malaise, weakness EENTM: see HPI Respiratory: see HPI, cough, dyspnea on exertion; No hemoptysis, No orthopnea, No phlegm; short of breath; No stridor, No wheezing, No other Cardiovascular: see HPI; No chest pain; edema; No Hx of Intervention; palpitations; No syncope, No vascular heart diseas, No other Gastrointestinal: no symptoms reported, see HPI Genitourinary: no symptoms reported, see HPI Musculoskeletal: see HPI, joint pain, muscle weakness Skin: no symptoms reported, see HPI Psychiatric/Neurological: No Symptoms Reported, See HPI Reviewed Test Results Reviewed Test Results Lab Laboratory Tests Test 01/04/18 11:19 01/04/18 16:37 01/04/18 20:26 01/05/18 04:48 Range/Units Glucometer 279 H 235 H 361 H 70-110 MG/DL White Blood Count 6.9 4.3-11.0 10^3/uL Red Blood Count 3.07 L 4.35-5.85 10^6/uL Hemoglobin 9.6 L 11.5-16.0 G/DL Hematocrit 32 L 35-52 % Mean Corpuscular Volume 105 H 80-99 FL Mean Corpuscular Hemoglobin 31 25-34 PG Mean Corpuscular Hemoglobin Concent 30 L 32-36 G/DL Red Cell Distribution Width 19.2 H 10.0-14.5 % Platelet Count 394 130-400 10^3/uL Mean Platelet Volume 10.0 7.4-10.4 FL Neutrophils (%) (Auto) 93 H 42-75 % Lymphocytes (%) (Auto) 3 L 12-44 % Monocytes (%) (Auto) 5 0-12 % Eosinophils (%) (Auto) 0 0-10 % Basophils (%) (Auto) 0 0-10 % Neutrophils # (Auto) 6.4 1.8-7.8 X 10^3 Lymphocytes # (Auto) 0.2 L 1.0-4.0 X 10^3 Monocytes # (Auto) 0.3 0.0-1.0 X 10^3 Eosinophils # (Auto) 0.0 0.0-0.3 10^3/uL Basophils # (Auto) 0.0 0.0-0.1 10^3/uL Sodium Level 140 135-145 MMOL/L Potassium Level 4.3 3.6-5.0 MMOL/L Chloride Level 97 L 98-107 MMOL/L Carbon Dioxide Level 32 21-32 MMOL/L Anion Gap 11 5-14 MMOL/L Blood Urea Nitrogen 25 H 7-18 MG/DL Creatinine 0.78 0.60-1.30 MG/DL Estimat Glomerular Filtration Rate > 60 BUN/Creatinine Ratio 32 Glucose Level 242 H 70-105 MG/DL Calcium Level 8.5 8.5-10.1 MG/DL Corrected Calcium 9.1 8.5-10.1 MG/DL Magnesium Level 2.0 1.8-2.4 MG/DL Total Bilirubin 0.6 0.1-1.0 MG/DL Aspartate Amino Transf (AST/SGOT) 15 5-34 U/L Alanine Aminotransferase (ALT/SGPT) 70 H 0-55 U/L Alkaline Phosphatase 141 H 40-136 U/L Troponin I < 0.30 <0.30 NG/ML B-Type Natriuretic Peptide 2614.0 H <100.0 PG/ML Total Protein 5.8 L 6.4-8.2 GM/DL Albumin 3.3 3.2-4.5 GM/DL Test 01/05/18 05:44 Range/Units Glucometer 239 H 70-110 MG/DL Physical Exam Vital Signs Vital Signs - First Documented 01/01/18 01/01/18 09:10 09:35 Temp 98.3 Pulse 105 Resp 26 B/P (MAP) 158/104 (122) Pulse Ox 94 O2 Delivery Nasal Cannula O2 Flow Rate 3.00 FiO2 35 Capillary Refill : Less Than 3 SecondsLess Than 3 Seconds Height, Weight, BMI Height: 5'3.00" Weight: 111lbs. 7.0oz. 50.133970et; 18.1 BMI Method:Estimated General Appearance: No Apparent Distress, WD/WN, Mild Distress Eyes: Bilateral Eye Normal Inspection, Bilateral Eye PERRL, Bilateral Eye EOMI HEENT: PERRL/EOMI, TMs Normal, Normal ENT Inspection, Pharynx Normal Neck: Full Range of Motion, Normal Inspection, Non Tender, Supple, Carotid Bruit Respiratory: Normal Breath Sounds, No Accessory Muscle Use, No Respiratory Distress, Decreased Breath Sounds Cardiovascular: No Edema, No Gallop, No JVD, Normal Peripheral Pulses, Systolic Murmur, Irregularly Irregular, Tachycardia Gastrointestinal: Normal Bowel Sounds, No Organomegaly, No Pulsatile Mass, Non Tender, Soft Back: Normal Inspection, No CVA Tenderness, No Vertebral Tenderness Extremity: Normal Capillary Refill, Normal Inspection, Normal Range of Motion, Non Tender, No Calf Tenderness, No Pedal Edema Neurologic/Psychiatric: Alert, Oriented x3, No Motor/Sensory Deficits, Normal Mood/Affect Skin: Normal Color, Warm/Dry Lymphatic: No Adenopathy A/P-Cardiology Admission Diagnosis paroxysmal atrial fibrillation Tachycardia Shortness of breath Acute exacerbation of COPD Assessment/Plan Paroxysmal atrial fibrillation, there is no previous documentation of atrial fibrillation but patient has been on Eliquis and Cardizem as an outpatient. I will continue and start her on Cardizem drip to achieve adequate control, evaluate 2-D echocardiogram. Continue to monitor. COPD, oxygen dependent, acute exacerbation managed by primary care team. Generalized weakness, loss of energy, probably secondary to hypoxemia. CAD. S/p CABG Feb [address] Guzman in [place], [place]. She had LEMUS to LAD, SVG to PDA, and sequential SVG to diagonal and OM. Last cardiac cath was on 07/12/15 and it showed multivessel CAD with patent SVG to distal RCA, patent LEMUS to distal LAD, and a sequential SVG with 50-60% mid-graft stenosis that was patent to first diag but occluded to OM. She underwent successful balloon angioplasty of the OM to which the graft was occluded. continue to monitor at this time Echocardiogram from January 03, 2015 showed LVEF 60%. Last echo of 04/19/[address] Funk showed LVEF 55-60%, mod diastolic dysfunction of LV, severe pulm htn with RVSP approx 72 mmHg, planning to repeat 2-D echocardiogram Pulmonary hypertension, followed and managed by Dr. Dubois. Planning to repeat echocardiogram PAD. 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 Abdominal aortic aneurysm screening of February 2016 was negative for abdominal aortic aneurysm S/p radiation and chemo for right lung cancer in 2016, managed by Dr Contrreas and Sherly H/o intermittent pneumonia Tobacco use quit in early 2012 Hypertension, monitor blood pressure on current medications Hyperlipidemia, controlled, continue to monitor lipids Hypothyroidism being treated with thyroid replacement therapy Carotid u/s from July 2014 showed minimal bilat carotid arterial disease without evidence of hemodynamic significance Mild hyperglycemia, suggestive of borderline DM II, on blood work of 07/12/15 H/O intramedullary nail for right prox damon on 05-16-[address] De León Clinical Quality Measures DVT/VTE Risk/Contraindication: Risk Factor Score Per Nursin RFS Level Per Nursing on Admit: 2=Moderate Contraindications-Pharm: Other *list below* BRIAN POPE MD Jan 05, 2018 09:22
[2018-01-05] MEDS ORDERED: DILTIAZEM 25 MG/5 ML INJ (CARDIZEM) VIAL IVP ONE ×2 (09:30→11:30)
[2018-01-05] MEDS: DILTIAZEM IV FOR DRIP 125 MG in NS (IVPB) 100 ML IV SCH ×2 (10:15→11:31)
--- NOTE | 2018-01-05 12:13 | Progress Note-Hospitalist ---
Subjective HPI/CC On Admission Date Seen by Provider: Jan 05, 2018 Time Seen by Provider: 11:00 Subjective/Events-last exam Patient had AF w/RVR thru the night and I gave her PO meds but still not successful so Dr Antoine was consulted and moved patient to [facility] for Cardizem drip Patient is such end stage with her lung disease it will be difficult for her to fully recover but will provide supportive care Checked meds and labs No pain is reported Confusion noted Review of Systems Cardiovascular: Palpitations Objective Exam Vital Signs Vital Signs Date Time Temp Pulse Resp B/P (MAP) Pulse Ox O2 Delivery O2 Flow Rate FiO2 01/05/18 11:37 98.9 01/05/18 11:31 94 127/78 01/05/18 10:21 92 Nasal Cannula 3.00 01/05/18 07:51 20 01/01/18 09:35 35 Capillary Refill : Less Than 3 SecondsLess Than 3 Seconds General Appearance: No Apparent Distress, WD/WN, Chronically ill, Thin Respiratory: No Accessory Muscle Use, No Respiratory Distress, Crackles, Decreased Breath Sounds, Wheezing Cardiovascular: No Edema, No Gallop, No JVD, No Murmur, Normal Peripheral Pulses, Irregularly Irregular, Tachycardia Neurologic/Psychiatric: Alert, No Motor/Sensory Deficits, Depressed Affect, Disoriented Skin: Normal Color, Warm/Dry Results/Procedures Lab Laboratory Tests 01/05/18 04:48 Patient resulted labs reviewed. Assessment/Plan Assessment and Plan Assess & Plan/Chief Complaint Assessment: AECOPD Confusion Tachycardia Poor prognosis AF w/RVR prompting transfer to ICU Plan: biPAP Likely hospice candidate Dr Antoine is appreciated Diagnosis/Problems Diagnosis/Problems (1) Atrial fibrillation with rapid ventricular response Status: Acute (2) Acute exacerbation of chronic obstructive pulmonary disease (COPD) Status: Acute (3) Poor prognosis Status: Acute (4) PAF (paroxysmal atrial fibrillation) Status: Chronic (5) Hyperglycemia Status: Acute Clinical Quality Measures DVT/VTE Risk/Contraindication: Risk Factor Score Per Nursin RFS Level Per Nursing on Admit: 2=Moderate Contraindications-Pharm: Other *list below* GLYNN BECKER DO Jan 05, 2018 12:13
[2018-01-05] MEDS: LEVOTHYROXINE 50 MCG (LEVOTHROID) TAB PO SCH (14:20)
[2018-01-05] MEDS: PANTOPRAZOLE 40 MG (PROTONIX) TAB PO SCH (14:20)
[2018-01-05] MEDS: ALPRAZolam 0.25 MG (XANAX) TAB PO PRN (18:36)
[2018-01-05] MEDS: FAMOTIDINE 20 MG (PEPCID) TABLET PO SCH (21:14)
[2018-01-05] MEDS ORDERED: FUROSEMIDE 40 MG/4 ML INJ (LASIX) ONE (21:34)
[2018-01-05] MEDS ORDERED: FUROSEMIDE 40 MG/4 ML INJ (LASIX) IVP ONE (21:45)
[2018-01-06] VITALS (30 sets, daily range): BP systolic 90–152; BP diastolic 52–100
[2018-01-06] MEDS: methylPREDNISolone 40 MG/ML (Solu-MEDROL) VIAL IV SCH ×4 (00:22→17:27)
[2018-01-06] MEDS: RT-ALBUTEROL/IPRATROPIUM 3 ML (DUONEB) VIAL INH SCH ×6 (02:23→22:37)
[2018-01-06 03:34] LABS: HEMOGLOBIN 10.1 G/DL (11.5-16.0); RED BLOOD COUNT 3.22 10^6/uL (4.35-5.85); RED CELL DISTRIBUTION WIDTH 19.2 % (10.0-14.5); WHITE BLOOD COUNT 6.4 10^3/uL (4.3-11.0)
[2018-01-06 03:54] LABS: ALANINE AMINOTRANSFERASE 55 U/L (0-55); ALBUMIN 3.2 GM/DL (3.2-4.5); ALKALINE PHOSPHATASE 127 U/L (40-136); BILIRUBIN,TOTAL 0.6 MG/DL (0.1-1.0); BUN/CREATININE RATIO 32; CALCIUM 8.3 MG/DL (8.5-10.1); CARBON DIOXIDE 34 MMOL/L (21-32); CHLORIDE 95 MMOL/L (98-107); CREATININE SERUM 0.74 MG/DL (0.60-1.30); GFR ESTIMATED > 60; GLUCOSE 251 MG/DL (70-105); SODIUM 141 MMOL/L (135-145); TOTAL PROTEIN 5.6 GM/DL (6.4-8.2)
[2018-01-06] MEDS ORDERED: DILTIAZEM 125 MG/25 ML IV (CARDIZEM) IV ONE (05:54)
[2018-01-06] MEDS ORDERED: NS (IVPB) 100 ML ONE (05:57)
[2018-01-06] MEDS: metFORMIN 500 MG (GLUCOPHAGE) TAB PO SCH ×2 (06:22→17:27)
[2018-01-06] MEDS: ALPRAZolam 0.25 MG (XANAX) TAB PO PRN ×2 (06:22→21:25)
[2018-01-06] MEDS: inSUlin ASPART (NovoLOG) 1 UNIT/0.01 ML (CHARGE PER UNIT) SC SCH ×4 (06:22→21:38)
[2018-01-06] MEDS: DILTIAZEM IV FOR DRIP 125 MG in NS (IVPB) 100 ML IV SCH (06:44)
--- NOTE | 2018-01-06 07:50 | Progress Note (SOAP) ---
Subjective Time Seen by a Provider: 07:47 Subjective/Events-last exam Patient not complaining of any chest pain. Patient feeling okay. Patient in proximal atrial fibrillation with RVR. Heart rate tachycardic. Proximal atrial fibrillation. Tachycardia. COPD. Pneumonia. Shortness of breath Objective Exam Vital Signs Date Time Temp Pulse Resp B/P (MAP) Pulse Ox O2 Delivery O2 Flow Rate FiO2 01/06/18 06:49 96 Nasal Cannula 4.00 01/06/18 06:44 98.0 126 17 94/74 95 Nasal Cannula 4.00 01/06/18 06:20 Nasal Cannula 4.00 01/06/18 06:00 126 17 94/74 (81) 95 NIV Bilevel 35.00 01/06/18 05:00 115 12 130/75 (93) 96 NIV Bilevel 35.00 01/06/18 04:26 116 14 95 35.00 01/06/18 04:00 102 11 121/71 (88) 96 NIV Bilevel 35.00 01/06/18 03:00 107 15 114/66 (82) 97 NIV Bilevel 35.00 01/06/18 02:23 105 15 97 35.00 01/06/18 02:15 105 12 118/69 (85) 97 NIV Bilevel 35.00 01/06/18 02:00 108 33 118/100 (106) NIV Bilevel 35.00 01/06/18 01:00 91 118/69 (85) NIV Bilevel 35.00 01/06/18 01:00 112 01/06/18 00:42 93 33 123/68 (86) 94 NIV Bilevel 35.00 01/06/18 00:33 96 14 95 35.00 01/05/18 23:47 98 12 119/64 (82) 95 NIV Bilevel 35.00 01/05/18 22:13 93 17 97 35.00 01/05/18 22:13 93 14 138/102 (114) 94 NIV Bilevel 35.00 01/05/18 21:00 99 22 138/71 (93) 89 Nasal Cannula 4.00 01/05/18 20:18 90 11 143/69 (93) 97 Nasal Cannula 4.00 01/05/18 20:00 Nasal Cannula 3.00 01/05/18 19:13 98.0 99 18 147/75 (99) 95 Nasal Cannula 4.00 01/05/18 19:00 97 01/05/18 18:44 91 Nasal Cannula 3.00 01/05/18 18:00 86 10 123/92 (102) 96 Nasal Cannula 4.00 01/05/18 17:00 89 14 136/84 (101) 94 Nasal Cannula 4.00 01/05/18 16:00 98 12 107/70 (82) 92 Nasal Cannula 4.00 01/05/18 15:00 97 11 111/81 (91) 91 Nasal Cannula 4.00 01/05/18 14:24 96 Nasal Cannula 3.00 01/05/18 14:00 98 27 125/77 (93) 90 Nasal Cannula 4.00 01/05/18 13:00 98 25 135/91 (106) 93 Nasal Cannula 4.00 01/05/18 13:00 99 01/05/18 12:00 96 9 156/88 (110) 100 Nasal Cannula 4.00 01/05/18 11:37 98.9 01/05/18 11:31 94 127/78 01/05/18 11:00 111 15 143/84 (103) 94 Nasal Cannula 4.00 01/05/18 10:21 92 Nasal Cannula 3.00 01/05/18 10:00 98 12 129/79 (96) 97 Nasal Cannula 4.00 01/05/18 08:00 Nasal Cannula 3.00 01/05/18 07:51 99.5 120 20 133/80 (97) 91 Nasal Cannula 3.00 I & O 01/06/18 07:00 Intake Total 540 ml Output Total 2200 ml Balance -1660 ml Capillary Refill : Less Than 3 SecondsLess Than 3 Seconds General Appearance: No Apparent Distress, Thin HEENT: Normal ENT Inspection Neck: Full Range of Motion Respiratory: No Accessory Muscle Use, No Respiratory Distress, Decreased Breath Sounds Cardiovascular: Irregularly Irregular Gastrointestinal: non tender, soft Results Lab Laboratory Tests 01/06/18 03:07 Laboratory Tests 01/05/18 10:30: Troponin I < 0.30 01/05/18 10:39: Glucometer 270H 01/05/18 15:24: Glucometer 195H 01/05/18 16:38: Troponin I < 0.30 01/05/18 20:51: Glucometer 317H 01/06/18 03:07: White Blood Count 6.4, Red Blood Count 3.22L, Hemoglobin 10.1L, Hematocrit 33L, Mean Corpuscular Volume 102H, Mean Corpuscular Hemoglobin 31, Mean Corpuscular Hemoglobin Concent 31L, Red Cell Distribution Width 19.2H, Platelet Count 428H, Mean Platelet Volume 10.0, Sodium Level 141, Potassium Level 4.0, Chloride Level 95L, Carbon Dioxide Level 34H, Anion Gap 12, Blood Urea Nitrogen 24H, Creatinine 0.74, Estimat Glomerular Filtration Rate > 60, BUN/Creatinine Ratio 32, Glucose Level 251H, Calcium Level 8.3L, Corrected Calcium 8.9, Total Bilirubin 0.6, Aspartate Amino Transf (AST/SGOT) 14, Alanine Aminotransferase ( ALT/SGPT) 55, Alkaline Phosphatase 127, Total Protein 5.6L, Albumin 3.2, Thyroid Stimulating Hormone (TSH) 0.18L Microbiology 01/01/18 Blood Culture - Preliminary, Resulted No growth 01/01/18 Urine Culture - Final, Complete See Comments Assessment/Plan Assessment/Plan Assess & Plan/Chief Complaint Confusion. Hypercapnia. COPD with acute exacerbation. Lung cancer in remission. CABG. Coronary artery disease. . 01/06/18. Atrial fibrillation RVR. Proximal atrial fibrillation. Pneumonia. COPD with acute exacerbation. Lung cancer in remission. Shortness of breath. Congestive heart failure Clinical Quality Measures Admission Status Admission Dx COPD with acute exacerbation. COPD with respiratory distress. Lung cancer in remission. Tired. Coronary artery disease. Diabetes. CABG history DVT/VTE Risk/Contraindication: Risk Factor Score Per Nursin RFS Level Per Nursing on Admit: 2=Moderate Contraindications-Pharm: Other *list below* WEST MCCAULEY DO Jan 06, 2018 07:50
[2018-01-06] MEDS: ASPIRIN E.C. 81 MG (ECOTRIN) TAB PO SCH (08:38)
[2018-01-06] MEDS: FUROSEMIDE 40 MG/4 ML INJ (LASIX) IVP SCH (08:38)
[2018-01-06] MEDS: APIXABAN 2.5 MG (ELIQUIS) TABLET PO SCH ×2 (08:38→21:25)
[2018-01-06] MEDS: DILTIAZEM 240 MG (CARDIZEM CD) CAP PO SCH (08:38)
[2018-01-06] MEDS: CEFDINIR 300 MG (OMNICEF) CAP PO SCH ×2 (08:38→21:24)
[2018-01-06] MEDS: meTOprolol TARTRATE 50 MG (LOPRESSOR) TAB PO SCH ×2 (08:39→21:25)
--- NOTE | 2018-01-06 08:57 | Cardiology Progress Note ---
Subjective Date Seen by Provider: Jan 06, 2018 Time Seen by Provider: 08:55 Subjective/Events-last exam Patient is in bed, still having some dyspnea, no chest pain, still in atrial fibrillation Review of Systems General: No Chills, No Night Sweats, No Fatigue, No Malaise, No Appetite, No Other HEENT: No Head Aches, No Visual Changes, No Eye Pain, No Ear Pain, No Dysphasia , No Sinus Congestion, No Post Nasal Drip, No Sore Throat, No Other Pulmonary: Dyspnea, Cough; No Pleuritic Chest Pain, No Other Cardiovascular: No: Chest Pain, Palpitations, Orthopnea, Paroxysmal Noc. Dyspnea, Edema, Lt Headedness, Other Objective-Cardiology Exam Last Set of Vital Signs Vital Signs 01/01/18 01/06/18 01/06/18 09:35 08:00 08:36 Temp 98.8 Pulse 125 Resp 24 B/P (MAP) 118/61 (80) Pulse Ox 98 O2 Delivery Nasal Cannula O2 Flow Rate 4.00 FiO2 35 Capillary Refill : Less Than 3 SecondsLess Than 3 Seconds I&O Intake and Output 01/06/18 00:00 Intake Total 1090 ml Output Total 1800 ml Balance -710 ml Intake Oral 590 ml IV Total 500 ml Output Urine Total 1800 ml General: Alert, Oriented X3, Cooperative HEENT: Atraumatic, PERRLA Neck: Supple, No JVD, No Thyromegaly Lungs: Normal Air Movement, Other (reba rhonchi) Heart: Normal S1, Normal S2, No Murmurs, Other (atrial fibrillation) Abdomen: Normal Bowel Sounds, Soft, No Tenderness, No Hepatosplenomegaly, No Masses Extremities: No Clubbing, No Cyanosis, No Edema, Normal Pulses, No Tenderness/ Swelling Skin: No Rashes, No Breakdown, No Significant Lesion Neuro: Normal Gait, Normal Speech, Strength at 5/5 X4 Ext, Normal Tone, Sensation Intact Psych/Mental Status: Mental Status NL, Mood NL Results Lab Laboratory Tests 01/06/18 03:07 A/P-Cardiology Admission Diagnosis paroxysmal atrial fibrillation Tachycardia Shortness of breath Acute exacerbation of COPD Assessment/Plan Paroxysmal atrial fibrillation, had an episode of atrial fibrillation in March 2017 and has been on Cardizem and Eliquis since then. Currently tachycardic with atrial fibrillation. On Cardizem drip, I will try to wean her off the drip and continue on oral Cardizem and add digoxin and monitor tolerance and response COPD, oxygen dependent, acute exacerbation managed by primary care team. Generalized weakness, loss of energy, probably secondary to hypoxemia. CAD. S/p CABG Feb [address] Guzman in [place], [place]. She had LEMUS to LAD, SVG to PDA, and sequential SVG to diagonal and OM. Last cardiac cath was on 07/12/15 and it showed multivessel CAD with patent SVG to distal RCA, patent LEMUS to distal LAD, and a sequential SVG with 50-60% mid-graft stenosis that was patent to first diag but occluded to OM. She underwent successful balloon angioplasty of the OM to which the graft was occluded. continue to monitor at this time Echocardiogram from January 03, 2015 showed LVEF 60%. Last echo of 04/19/[address] Funk showed LVEF 55-60%, mod diastolic dysfunction of LV, severe pulm htn with RVSP approx 72 mmHg, planning to repeat 2-D echocardiogram Pulmonary hypertension, followed and managed by Dr. Dubois. Planning to repeat echocardiogram PAD. 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 Abdominal aortic aneurysm screening of February 2016 was negative for abdominal aortic aneurysm S/p radiation and chemo for right lung cancer in 2016, managed by Dr Contreras and Sherly H/o intermittent pneumonia Tobacco use quit in early 2012 Hypertension, monitor blood pressure on current medications Hyperlipidemia, controlled, continue to monitor lipids Hypothyroidism being treated with thyroid replacement therapy Carotid u/s from July 2014 showed minimal bilat carotid arterial disease without evidence of hemodynamic significance Mild hyperglycemia, suggestive of borderline DM II, on blood work of 07/12/15 H/O intramedullary nail for right prox damon on 05-16-[address] De León Clinical Quality Measures DVT/VTE Risk/Contraindication: Risk Factor Score Per Nursin RFS Level Per Nursing on Admit: 2=Moderate Contraindications-Pharm: Other *list below* BRIAN POPE MD Jan 06, 2018 08:57
[2018-01-06] MEDS ORDERED: DIGOXIN 0.25 MG/ML (LANOXIN) 2 ML AMP IV NR (09:00)
[2018-01-06] MEDS: LEVOTHYROXINE 50 MCG (LEVOTHROID) TAB PO SCH (15:22)
[2018-01-06] MEDS: PANTOPRAZOLE 40 MG (PROTONIX) TAB PO SCH (15:22)
[2018-01-06] MEDS: DIGOXIN 0.125 MG (LANOXIN) TAB PO SCH (15:22)
[2018-01-06] MEDS: FAMOTIDINE 20 MG (PEPCID) TABLET PO SCH (21:25)
[2018-01-07] VITALS (14 sets, daily range): BP systolic 99–167; BP diastolic 63–118
[2018-01-07] MEDS: methylPREDNISolone 40 MG/ML (Solu-MEDROL) VIAL IV SCH ×3 (00:54→20:50)
[2018-01-07] MEDS: RT-ALBUTEROL/IPRATROPIUM 3 ML (DUONEB) VIAL INH SCH ×5 (01:02→19:30)
[2018-01-07 04:29] LABS: BASOPHILS % (AUTO) 0 % (0-10); EOSINOPHILS % (AUTO) 0 % (0-10); HEMATOCRIT 35 % (35-52); HEMOGLOBIN 10.4 G/DL (11.5-16.0); LYMPHOCYTES # (AUTO) 0.1 X 10^3 (1.0-4.0); LYMPHOCYTES % (AUTO) 1 % (12-44); MEAN CORPUSCULAR HEMOGLOBIN 31 PG (25-34); MEAN CORPUSCULAR HGB CONC 30 G/DL (32-36); MEAN CORPUSCULAR VOLUME 103 FL (80-99); MONOCYTES # (AUTO) 0.4 X 10^3 (0.0-1.0); MONOCYTES % (AUTO) 5 % (0-12); NEUTROPHILS # (AUTO) 7.6 X 10^3 (1.8-7.8); NEUTROPHILS % (AUTO) 94 % (42-75); PLATELET COUNT 460 10^3/uL (130-400); RED BLOOD COUNT 3.37 10^6/uL (4.35-5.85); RED CELL DISTRIBUTION WIDTH 18.5 % (10.0-14.5); WHITE BLOOD COUNT 8.1 10^3/uL (4.3-11.0)
[2018-01-07 04:53] LABS: ALANINE AMINOTRANSFERASE 50 U/L (0-55); ALBUMIN 3.5 GM/DL (3.2-4.5); ALKALINE PHOSPHATASE 124 U/L (40-136); BILIRUBIN,TOTAL 0.5 MG/DL (0.1-1.0); BUN/CREATININE RATIO 38; CALCIUM 8.9 MG/DL (8.5-10.1); CARBON DIOXIDE 35 MMOL/L (21-32); CHLORIDE 93 MMOL/L (98-107); CREATININE SERUM 0.77 MG/DL (0.60-1.30); GFR ESTIMATED > 60; GLUCOSE 244 MG/DL (70-105); MAGNESIUM 2.2 MG/DL (1.8-2.4); POTASSIUM 4.3 MMOL/L (3.6-5.0); SODIUM 139 MMOL/L (135-145); TOTAL PROTEIN 6.1 GM/DL (6.4-8.2)
[2018-01-07 04:59] LABS: LYMPHOCYTES % (MANUAL) 1 %; MONOCYTES % (MANUAL) 4 %; NEUTROPHILS % (MANUAL) 95 %
[2018-01-07] MEDS: inSUlin ASPART (NovoLOG) 1 UNIT/0.01 ML (CHARGE PER UNIT) SC SCH ×4 (05:48→20:50)
[2018-01-07] MEDS: metFORMIN 500 MG (GLUCOPHAGE) TAB PO SCH ×2 (05:49→17:34)
--- NOTE | 2018-01-07 07:35 | Diagnostic Imaging Report ---
EXAM: CHEST 1 VIEW, AP/PA ONLY INDICATION: Pneumonia. COMPARISON: Chest radiograph 01/05/2018. FINDINGS: Cardiomegaly. Normal central pulmonary vascularity. Sternotomy. Persistent airspace consolidation in the right lung base. Small bilateral pleural effusions. No pneumothorax. No acute osseous findings. IMPRESSION: Persistent consolidation in the right lung base and small bilateral pleural effusions, greater on the right. Dictated by: Dictated on workstation # [id number]
--- NOTE | 2018-01-07 07:39 | Progress Note (SOAP) ---
Subjective Time Seen by a Provider: 07:37 Subjective/Events-last exam patient feels she is better today. Patient still hypertension. Patient still tachycardia. patient still appears to be in atrial fibrillation. Patient has decreased breath sounds Objective Exam Vital Signs Date Time Temp Pulse Resp B/P (MAP) Pulse Ox O2 Delivery O2 Flow Rate FiO2 01/07/18 07:25 97.0 Nasal Cannula 4.00 01/07/18 04:00 100 20 120/86 (97) 95 Nasal Cannula 4.00 01/07/18 03:48 102 17 90 Nasal Cannula 4.00 01/07/18 03:00 109 10 145/108 (120) 96 NIV Bilevel 35.00 01/07/18 02:50 116 29 130/77 (94) 95 NIV Bilevel 35.00 01/07/18 02:00 96 20 125/90 (102) 94 NIV Bilevel 35.00 01/07/18 01:02 102 17 97 35.00 01/07/18 01:00 101 16 132/78 (96) 97 NIV Bilevel 35.00 01/07/18 01:00 101 01/07/18 00:00 158 20 130/99 (109) 92 NIV Bilevel 35.00 01/06/18 23:00 117 15 148/86 (106) 98 NIV Bilevel 35.00 01/06/18 22:40 107 13 152/90 (110) 96 NIV Bilevel 35.00 01/06/18 22:37 124 21 98 35.00 01/06/18 22:00 114 20 141/82 (101) 96 Nasal Cannula 4.00 01/06/18 21:00 125 12 121/88 (99) 96 Nasal Cannula 4.00 01/06/18 20:00 115 19 133/86 (102) 92 Nasal Cannula 4.00 01/06/18 20:00 Nasal Cannula 3.00 01/06/18 19:02 92 Nasal Cannula 4.00 01/06/18 19:00 110 19 90/52 (65) 96 Nasal Cannula 4.00 01/06/18 19:00 110 01/06/18 18:00 110 13 125/91 (102) 93 Nasal Cannula 4.00 01/06/18 17:00 106 9 115/78 (90) 92 Nasal Cannula 4.00 01/06/18 16:00 97.3 91 16 105/88 (94) 92 Nasal Cannula 4.00 01/06/18 15:24 99.0 Nasal Cannula 4.00 01/06/18 15:00 93 20 109/88 (95) 90 Nasal Cannula 4.00 01/06/18 14:00 78 109/66 (80) 97 Nasal Cannula 4.00 01/06/18 13:00 89 01/06/18 13:00 86 16 91/57 (68) 90 Nasal Cannula 4.00 01/06/18 12:00 94 13 124/69 (87) 97 Nasal Cannula 4.00 01/06/18 11:18 98.6 01/06/18 11:18 99 Nasal Cannula 4.00 01/06/18 11:00 86 22 110/86 (94) 97 Nasal Cannula 4.00 01/06/18 10:00 99 17 114/67 (83) 97 Nasal Cannula 4.00 01/06/18 09:00 123 122/81 (95) 95 Nasal Cannula 4.00 01/06/18 08:36 98.8 Nasal Cannula 4.00 01/06/18 08:35 Nasal Cannula 3.00 01/06/18 08:00 125 24 118/61 (80) 98 Nasal Cannula 4.00 I & O 01/07/18 07:00 Intake Total 1080 ml Output Total 1975 ml Balance -895 ml Capillary Refill : Less Than 3 SecondsLess Than 3 Seconds General Appearance: No Apparent Distress, Thin HEENT: Normal ENT Inspection Neck: Full Range of Motion Respiratory: Chest Non Tender, No Accessory Muscle Use, No Respiratory Distress , Decreased Breath Sounds Cardiovascular: Irregularly Irregular, Tachycardia Gastrointestinal: non tender, soft Results Lab Laboratory Tests 01/07/18 04:10 Laboratory Tests 01/06/18 11:07: Glucometer 251H 01/06/18 16:27: Glucometer 322H 01/06/18 21:33: Glucometer 398H 01/07/18 04:10: White Blood Count 8.1, Red Blood Count 3.37L, Hemoglobin 10.4L, Hematocrit 35, Mean Corpuscular Volume 103H, Mean Corpuscular Hemoglobin 31, Mean Corpuscular Hemoglobin Concent 30L, Red Cell Distribution Width 18.5H, Platelet Count 460H, Mean Platelet Volume 10.0, Neutrophils (%) (Auto) 94H, Lymphocytes (%) (Auto) 1L , Monocytes (%) (Auto) 5, Eosinophils (%) (Auto) 0, Basophils (%) (Auto) 0, Neutrophils # (Auto) 7.6, Lymphocytes # (Auto) 0.1L, Monocytes # (Auto) 0.4, Eosinophils # (Auto) 0.0, Basophils # (Auto) 0.0, Neutrophils % (Manual) 95, Lymphocytes % (Manual) 1, Monocytes % (Manual) 4, Macrocytosis SLIGHT, Sodium Level 139, Potassium Level 4.3, Chloride Level 93L, Carbon Dioxide Level 35H, Anion Gap 11, Blood Urea Nitrogen 29H, Creatinine 0.77, Estimat Glomerular Filtration Rate > 60, BUN/Creatinine Ratio 38, Glucose Level 244H, Calcium Level 8.9, Corrected Calcium 9.3, Magnesium Level 2.2, Total Bilirubin 0.5, Aspartate Amino Transf (AST/SGOT) 13, Alanine Aminotransferase (ALT/SGPT) 50, Alkaline Phosphatase 124, Total Protein 6.1L, Albumin 3.5 Microbiology 01/01/18 Blood Culture - Final, Complete No growth 01/01/18 Urine Culture - Final, Complete See Comments Assessment/Plan Assessment/Plan Assess & Plan/Chief Complaint Confusion. Hypercapnia. COPD with acute exacerbation. Lung cancer in remission. CABG. Coronary artery disease. . 01/06/18. Atrial fibrillation RVR. Proximal atrial fibrillation. Pneumonia. COPD with acute exacerbation. Lung cancer in remission. Shortness of breath. Congestive heart failure. . 01/07/18. Atrial fibrillation. Pneumonia. COPD with acute exacerbation. Lung cancer in remission. Tachycardia. Less shortness of breath Clinical Quality Measures Admission Status Admission Dx COPD with acute exacerbation. COPD with respiratory distress. Lung cancer in remission. Tired. Coronary artery disease. Diabetes. CABG history DVT/VTE Risk/Contraindication: Risk Factor Score Per Nursin RFS Level Per Nursing on Admit: 2=Moderate Contraindications-Pharm: Other *list below* WEST MCCAULEY DO Jan 07, 2018 07:39
--- NOTE | 2018-01-07 08:03 | Cardiology Progress Note ---
Subjective Date Seen by Provider: Jan 07, 2018 Time Seen by Provider: 08:00 Subjective/Events-last exam Patient is laying down in bed, having some shortness of breath but overall feeling better, still having tachycardia Review of Systems General: No Chills, No Night Sweats, No Fatigue, No Malaise, No Appetite, No Other HEENT: No Head Aches, No Visual Changes, No Eye Pain, No Ear Pain, No Dysphasia , No Sinus Congestion, No Post Nasal Drip, No Sore Throat, No Other Pulmonary: Dyspnea; No Cough, No Pleuritic Chest Pain, No Other Cardiovascular: No: Chest Pain, Palpitations, Orthopnea, Paroxysmal Noc. Dyspnea, Edema, Lt Headedness, Other Objective-Cardiology Exam Last Set of Vital Signs Vital Signs 01/01/18 01/07/18 01/07/18 01/07/18 09:35 04:00 07:25 07:45 Temp 97.0 Pulse 102 Resp 20 B/P (MAP) 120/86 (97) Pulse Ox 97 O2 Delivery Nasal Cannula O2 Flow Rate 4.00 FiO2 35 Capillary Refill : Less Than 3 SecondsLess Than 3 Seconds I&O Intake and Output 01/07/18 00:00 Intake Total 830 ml Output Total 2325 ml Balance -1495 ml Intake Oral 830 ml Output Urine Total 2325 ml General: Alert, Oriented X3, Cooperative HEENT: Atraumatic, PERRLA Neck: Supple, No JVD, No Thyromegaly Lungs: Normal Air Movement, Other (reba rhonchi) Heart: Normal S1, Normal S2, No Murmurs, Other (atrial fibrillation) Abdomen: Normal Bowel Sounds, Soft, No Tenderness, No Hepatosplenomegaly, No Masses Extremities: No Clubbing, No Cyanosis, No Edema, Normal Pulses, No Tenderness/ Swelling Skin: No Rashes, No Breakdown, No Significant Lesion Neuro: Normal Gait, Normal Speech, Strength at 5/5 X4 Ext, Normal Tone, Sensation Intact Psych/Mental Status: Mental Status NL, Mood NL Results Lab Laboratory Tests 01/07/18 04:10 A/P-Cardiology Admission Diagnosis paroxysmal atrial fibrillation Tachycardia Shortness of breath Acute exacerbation of COPD Assessment/Plan Paroxysmal atrial fibrillation, had an episode of atrial fibrillation in March 2017 and has been on Cardizem and Eliquis since then. Still in atrial fibrillation/flutter, I am planning to proceed with SANTINO and electrical cardioversion in the morning. [id number] score of 5, yearly risk of stroke without oral anticoagulation is 6 percent, patient is maintained on Eliquis 2.5 mg twice daily which is subtherapeutic, I am changing the dose to 5 mg twice daily and planning to do SANTINO prior to the cardioversion Pneumonia, receiving antibiotics, managed by primary care physician COPD, oxygen dependent, acute exacerbation managed by primary care team. Generalized weakness, loss of energy, probably secondary to hypoxemia. CAD. S/p CABG Feb [address] Guzman in [place], [place]. She had LEMUS to LAD, SVG to PDA, and sequential SVG to diagonal and OM. Last cardiac cath was on 07/12/15 and it showed multivessel CAD with patent SVG to distal RCA, patent LEMUS to distal LAD, and a sequential SVG with 50-60% mid-graft stenosis that was patent to first diag but occluded to OM. She underwent successful balloon angioplasty of the OM to which the graft was occluded. continue to monitor at this time Echocardiogram from January 03, 2015 showed LVEF 60%. Last echo of 04/19/[address] Funk showed LVEF 55-60%, mod diastolic dysfunction of LV, severe pulm htn with RVSP approx 72 mmHg, planning to repeat 2-D echocardiogram Pulmonary hypertension, followed and managed by Dr. Dubois. Planning to repeat echocardiogram PAD. 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 Abdominal aortic aneurysm screening of February 2016 was negative for abdominal aortic aneurysm S/p radiation and chemo for right lung cancer in mid 2016, managed by Dr Tim H/o intermittent pneumonia Tobacco use quit in early 2012 Hypertension, monitor blood pressure on current medications Hyperlipidemia, controlled, continue to monitor lipids Hypothyroidism being treated with thyroid replacement therapy Carotid u/s from July 2014 showed minimal bilat carotid arterial disease without evidence of hemodynamic significance Mild hyperglycemia, suggestive of borderline DM II, on blood work of 07/12/15 H/O intramedullary nail for right prox damon on 05-16-[address] De León Clinical Quality Measures DVT/VTE Risk/Contraindication: Risk Factor Score Per Nursin RFS Level Per Nursing on Admit: 2=Moderate Contraindications-Pharm: Other *list below* BRIAN POPE MD Jan 07, 2018 08:03
[2018-01-07] MEDS: ASPIRIN E.C. 81 MG (ECOTRIN) TAB PO SCH (08:19)
[2018-01-07] MEDS: meTOprolol TARTRATE 50 MG (LOPRESSOR) TAB PO SCH ×2 (08:19→20:42)
[2018-01-07] MEDS: DILTIAZEM 240 MG (CARDIZEM CD) CAP PO SCH (08:19)
[2018-01-07] MEDS: FUROSEMIDE 40 MG/4 ML INJ (LASIX) IVP SCH (08:19)
[2018-01-07] MEDS: CEFDINIR 300 MG (OMNICEF) CAP PO SCH (08:19)
[2018-01-07] MEDS: DIGOXIN 0.125 MG (LANOXIN) TAB PO SCH (08:19)
[2018-01-07] MEDS: APIXABAN 5 MG (ELIQUIS) TABLET PO SCH ×2 (09:54→20:43)
[2018-01-07] MEDS: CEFEPIME 2 GM/NS 50 ML IVPB IV SCH ×2 (10:24)
[2018-01-07] MEDS: DILTIAZEM IV FOR DRIP 125 MG in NS (IVPB) 100 ML IV SCH (11:25)
[2018-01-07] MEDS: LEVOTHYROXINE 50 MCG (LEVOTHROID) TAB PO SCH (13:49)
[2018-01-07] MEDS: PANTOPRAZOLE 40 MG (PROTONIX) TAB PO SCH (13:49)
[2018-01-07] MEDS ORDERED: RT-ALBUTEROL/IPRATROPIUM 3 ML (DUONEB) VIAL INH SCH (15:00)
[2018-01-07] MEDS: FAMOTIDINE 20 MG (PEPCID) TABLET PO SCH (20:43)
[2018-01-07] MEDS: ALPRAZolam 0.25 MG (XANAX) TAB PO PRN (20:43)
[2018-01-08] VITALS (9 sets, daily range): BP systolic 115–153; BP diastolic 60–96
[2018-01-08] MEDS: RT-ALBUTEROL/IPRATROPIUM 3 ML (DUONEB) VIAL INH SCH ×4 (01:16→19:46)
[2018-01-08 04:03] LABS: HEMOGLOBIN 10.9 G/DL (11.5-16.0); MEAN PLATELET VOLUME 9.8 FL (7.4-10.4); RED BLOOD COUNT 3.57 10^6/uL (4.35-5.85); RED CELL DISTRIBUTION WIDTH 18.5 % (10.0-14.5); WHITE BLOOD COUNT 8.3 10^3/uL (4.3-11.0)
[2018-01-08 04:35] LABS: BUN/CREATININE RATIO 42; CARBON DIOXIDE 38 MMOL/L (21-32); CHLORIDE 92 MMOL/L (98-107); CREATININE SERUM 0.73 MG/DL (0.60-1.30); GFR ESTIMATED > 60; GLUCOSE 244 MG/DL (70-105); POTASSIUM 4.2 MMOL/L (3.6-5.0); SODIUM 143 MMOL/L (135-145)
[2018-01-08] MEDS: inSUlin ASPART (NovoLOG) 1 UNIT/0.01 ML (CHARGE PER UNIT) SC SCH ×4 (06:28→20:07)
[2018-01-08] MEDS ORDERED: LIDOCAINE 2% VISCOUS 15 ML UDC ONE (07:37)
[2018-01-08] MEDS ORDERED: MIDAZOLAM 5 MG/5 ML (VERSED) VIAL ONE (07:48)
[2018-01-08] MEDS ORDERED: proPOfol 200 MG/20 ML (DIPRIVAN) VIAL IV ONE (07:48)
--- NOTE | 2018-01-08 07:58 | Progress Note (SOAP) ---
Subjective Time Seen by a Provider: 07:55 Subjective/Events-last exam Patient feels she is doing better today. Patient in atrial flutter area Patient to be cardioverted by digital photo printer this morning Objective Exam Vital Signs Date Time Temp Pulse Resp B/P (MAP) Pulse Ox O2 Delivery O2 Flow Rate FiO2 01/08/18 04:00 97.1 105 11 138/96 (110) NIV Bilevel 35.00 01/08/18 03:00 112 11 NIV Bilevel 35.00 01/08/18 02:00 106 13 NIV Bilevel 35.00 01/08/18 01:16 106 18 35.00 01/08/18 01:00 111 01/08/18 01:00 101 9 NIV Bilevel 35.00 01/08/18 00:00 98.1 101 15 136/84 (101) NIV Bilevel 35.00 01/07/18 23:00 112 21 NIV Bilevel 35.00 01/07/18 22:00 133 31 NIV Bilevel 35.00 01/07/18 21:25 138 32 35.00 01/07/18 21:00 146 21 NIV Bilevel 35.00 01/07/18 20:00 Nasal Cannula 4.00 01/07/18 20:00 140 20 NIV Bilevel 35.00 01/07/18 19:30 97.9 92 Nasal Cannula 4.00 01/07/18 19:30 91 Nasal Cannula 4.00 01/07/18 19:00 142 11 129/81 (97) NIV Bilevel 35.00 01/07/18 19:00 135 01/07/18 18:00 138 12 NIV Bilevel 35.00 01/07/18 17:00 114 20 NIV Bilevel 35.00 01/07/18 16:00 110 12 99/63 (75) Nasal Cannula 4.00 01/07/18 15:00 96 16 96 Nasal Cannula 4.00 01/07/18 14:01 94 24 93 35.00 01/07/18 14:00 90 18 Nasal Cannula 4.00 01/07/18 13:00 93 26 Nasal Cannula 4.00 01/07/18 13:00 97 01/07/18 12:00 93 18 112/67 (82) Nasal Cannula 4.00 01/07/18 11:08 97.8 104 15 120/72 (88) 95 Nasal Cannula 4.00 01/07/18 10:00 108 15 94 Nasal Cannula 4.00 01/07/18 09:00 106 13 99 Nasal Cannula 4.00 01/07/18 08:15 96 Nasal Cannula 4.00 01/07/18 08:01 110 18 132/72 (92) 96 Nasal Cannula 4.00 I & O 01/08/18 07:00 Intake Total 500 ml Output Total 2300 ml Balance -1800 ml Capillary Refill : Less Than 3 SecondsLess Than 3 Seconds General Appearance: No Apparent Distress, Thin HEENT: Normal ENT Inspection Neck: Normal Inspection, Non Tender Respiratory: No Accessory Muscle Use, No Respiratory Distress, Decreased Breath Sounds Cardiovascular: Tachycardia Gastrointestinal: non tender, soft Results Lab Laboratory Tests 01/08/18 03:55 Laboratory Tests 01/07/18 11:06: Glucometer 412*H 01/07/18 16:41: Glucometer 308H 01/07/18 20:42: Glucometer 295H 01/08/18 03:55: White Blood Count 8.3, Red Blood Count 3.57L, Hemoglobin 10.9L, Hematocrit 37, Mean Corpuscular Volume 104H, Mean Corpuscular Hemoglobin 31, Mean Corpuscular Hemoglobin Concent 29L, Red Cell Distribution Width 18.5H, Platelet Count 477H, Mean Platelet Volume 9.8, Sodium Level 143, Potassium Level 4.2, Chloride Level 92L, Carbon Dioxide Level 38H, Anion Gap 13, Blood Urea Nitrogen 31H, Creatinine 0.73, Estimat Glomerular Filtration Rate > 60, BUN/Creatinine Ratio 42, Glucose Level 244H, Calcium Level 9.0 Microbiology 01/01/18 Blood Culture - Final, Complete No growth 01/01/18 Urine Culture - Final, Complete See Comments Assessment/Plan Assessment/Plan Assess & Plan/Chief Complaint Confusion. Hypercapnia. COPD with acute exacerbation. Lung cancer in remission. CABG. Coronary artery disease. . 01/06/18. Atrial fibrillation RVR. Proximal atrial fibrillation. Pneumonia. COPD with acute exacerbation. Lung cancer in remission. Shortness of breath. Congestive heart failure. . 01/07/18. Atrial fibrillation. Pneumonia. COPD with acute exacerbation. Lung cancer in remission. Tachycardia. Less shortness of breath . 01/08/18. Atrial flutter to be cardioverted today. Pneumonia. COPD with acute exacerbation. Patient looks weak Lung cancer in remission. Tachycardia Clinical Quality Measures Admission Status Admission Dx COPD with acute exacerbation. COPD with respiratory distress. Lung cancer in remission. Tired. Coronary artery disease. Diabetes. CABG history DVT/VTE Risk/Contraindication: Risk Factor Score Per Nursin RFS Level Per Nursing on Admit: 2=Moderate Contraindications-Pharm: Other *list below* WEST MCCAULEY DO Jan 08, 2018 07:58
--- NOTE | 2018-01-08 08:09 | Cardiac Procedure Note-CS/ASA ---
Pre-Procedure Note Pre-Op Procedure Note H&P Reviewed The H&P was reviewed, patient examined and no changes noted. Date H&P Reviewed: Jan 08, 2018 Time H&P Reviewed: 08:09 Conscious Sedation Pre-Proced Time 08:09 ASA Score 3 For ASA 3 and 4: Consider anesthesia and medical clearance. Also, for patients with a history of failed moderate sedation consider anesthesia. Airway Lungs Heart ASA score ASA 1: a normal healthy patient ASA 2: a patient with a mild systemic disease (mid diabetes, controlled hypertension, obesity x ASA 3: a patient with a severe systemic disease that limits activity (angina , COPD, prior Myocardial infarction) ASA 4: a patient with an incapacitating disease that is a constant threat to life (CHF, renal failure) ASA 5: a moribund patient not expected to survive 24 hrs. (ruptured aneurysm) ASA 6: a declared brain patient whose organs are being harvested. For emergent operations, add the letter E after the classification Mallampati Classification Grade 3 Sedation Plan Analgesia, Amnesia, Plan communicated to team members, Discussed options with patient/fam, Discussed risks with patient/fam The patient is an appropriate candidate to undergo the planned procedure, sedation, and anesthesia. The patient immediately re-assessed prior to indication. BRIAN POPE MD Jan 08, 2018 08:09
[2018-01-08] MEDS ORDERED: AMIODARONE 150 MG/3 ML (CORDARONE) AMP IV ONE (08:37)
--- NOTE | 2018-01-08 09:10 | Anesthesia-Procedure Note ---
Procedures/Interventions Procedure Start/Stop/Diagnosis Date of Procedure: Jan 08, 2018 Start Time: 07:51 Stop Time: 08:28 SANTINO/Cardioversion Anesthesia Type: MAC ASA Class: 4 Medications Versed 2mg, Propofol 90 mg. Monitors and Equipment: BP Cuff - Left Additional Procedures Procedures Patient began being sedated with 1mg of Versed and 30mg of Propofol, no effect noted. 30 more mg of Propofol, no effected noted. IV noted to be infiltrated. 22g IV started in right hand. 1mg versed and 30mg of propofol given for sedation, worked well. Care to CLEANERS. VS per ICU JOSE WRIGHT CRNA Jan 08, 2018 09:10
[2018-01-08] MEDS: metFORMIN 500 MG (GLUCOPHAGE) TAB PO SCH ×2 (11:01→16:34)
[2018-01-08] MEDS: DIGOXIN 0.125 MG (LANOXIN) TAB PO SCH (11:01)
[2018-01-08] MEDS: DILTIAZEM 240 MG (CARDIZEM CD) CAP PO SCH (11:01)
[2018-01-08] MEDS: methylPREDNISolone 40 MG/ML (Solu-MEDROL) VIAL IV SCH ×2 (11:01→19:51)
[2018-01-08] MEDS: meTOprolol TARTRATE 50 MG (LOPRESSOR) TAB PO SCH ×2 (11:01→19:51)
[2018-01-08] MEDS: FUROSEMIDE 40 MG/4 ML INJ (LASIX) IVP SCH (11:01)
[2018-01-08] MEDS: ASPIRIN E.C. 81 MG (ECOTRIN) TAB PO SCH (11:01)
[2018-01-08] MEDS: APIXABAN 5 MG (ELIQUIS) TABLET PO SCH ×2 (11:02→19:50)
[2018-01-08] MEDS: CEFEPIME 2 GM/NS 50 ML IVPB IV SCH ×2 (11:02)
[2018-01-08] MEDS: DILTIAZEM IV FOR DRIP 125 MG in NS (IVPB) 100 ML IV SCH (11:02)
--- NOTE | 2018-01-08 11:15 | Cardioversion ---
Cardioversion PROCEDURE PHYSICIAN: Brian Antoine DATE OF PROCEDURE: 01/08/18 DIRECT EXTERNAL ELECTRICAL CARDIOVERSION: Indications: Atrial flutter with rapid ventricular rate Preoperative diagnoses: Atrial flutter with rapid ventricular rate Postoperative diagnosis: Sinus rhythm, Successful Electrical Cardioversion Anesthesia: By Anesthesia services Complications: None Specimen: None Contrast: 0 Flouroscopy: none Procedure Details: The patient was brought the wood and wood products labourer after informed consent was taken, all the risks and complications were explained including the risk of stroke. Electrical cardioversion was carried out with anesthesia support with propofol. 120 joules of synchronized shock was delivered through external patches which promptly restored sinus rhythm. The patient tolerated the procedure well. Conclusions: Successful electrical cardioversion in terminating atrial flutter BRIAN ANTOINE MD Jan 08, 2018 11:15
--- NOTE | 2018-01-08 11:17 | Cardiology Progress Note ---
Subjective Date Seen by Provider: Jan 08, 2018 Time Seen by Provider: 11:15 Subjective/Events-last exam Patient is laying down in bed, no chest pain. Still confused. Review of Systems General: No Chills, No Night Sweats, No Fatigue, No Malaise, No Appetite, No Other HEENT: No Head Aches, No Visual Changes, No Eye Pain, No Ear Pain, No Dysphasia , No Sinus Congestion, No Post Nasal Drip, No Sore Throat, No Other Pulmonary: Dyspnea, Cough; No Pleuritic Chest Pain, No Other Cardiovascular: No: Chest Pain, Palpitations, Orthopnea, Paroxysmal Noc. Dyspnea, Edema, Lt Headedness, Other Objective-Cardiology Exam Last Set of Vital Signs Vital Signs 01/08/18 01/08/18 04:00 10:00 Temp 97.1 Pulse 70 Resp 18 B/P (MAP) 140/81 (100) Pulse Ox 100 O2 Delivery Nasal Cannula O2 Flow Rate 4.00 Capillary Refill : Less Than 3 SecondsLess Than 3 Seconds I&O Intake and Output 01/08/18 00:00 Intake Total 800 ml Output Total 2150 ml Balance -1350 ml Intake Oral 800 ml Output Urine Total 2150 ml General: Alert, Oriented X3, Cooperative HEENT: Atraumatic, PERRLA Neck: Supple, No JVD, No Thyromegaly Lungs: Normal Air Movement, Other (reba rhonchi) Heart: Regular Rate, Normal S1, Normal S2, No Murmurs Abdomen: Normal Bowel Sounds, Soft, No Tenderness, No Hepatosplenomegaly, No Masses Extremities: No Clubbing, No Cyanosis, No Edema, Normal Pulses, No Tenderness/ Swelling Skin: No Rashes, No Breakdown, No Significant Lesion Neuro: Normal Gait, Normal Speech, Strength at 5/5 X4 Ext, Normal Tone, Sensation Intact Psych/Mental Status: Mental Status NL, Mood NL Results Lab Laboratory Tests 01/08/18 03:55 A/P-Cardiology Admission Diagnosis paroxysmal atrial fibrillation Tachycardia Shortness of breath Acute exacerbation of COPD Assessment/Plan Paroxysmal atrial fibrillation, atrial flutter, status post electrical cardioversion, given one 50 mg of amiodarone. Continue to monitor [id number] score of 5, yearly risk of stroke without oral anticoagulation is 6 percent, patient was maintained on Eliquis 2.5 mg twice daily which is subtherapeutic, she is now on Eliquis 5 mg twice daily. Continue to monitor Pneumonia, receiving antibiotics, managed by primary care physician COPD, oxygen dependent, acute exacerbation managed by primary care team. Generalized weakness, loss of energy, probably secondary to hypoxemia. CAD. S/p CABG Feb [address] Guzman in [place], [place]. She had LEMUS to LAD, SVG to PDA, and sequential SVG to diagonal and OM. Last cardiac cath was on 07/12/15 and it showed multivessel CAD with patent SVG to distal RCA, patent LEMUS to distal LAD, and a sequential SVG with 50-60% mid-graft stenosis that was patent to first diag but occluded to OM. She underwent successful balloon angioplasty of the OM to which the graft was occluded. continue to monitor at this time Echocardiogram from January 03, 2015 showed LVEF 60%. Last echo of 04/19/[address] Funk showed LVEF 55-60%, mod diastolic dysfunction of LV, severe pulm htn with RVSP approx 72 mmHg, planning to repeat 2-D echocardiogram Pulmonary hypertension, followed and managed by Dr. Dubois. Planning to repeat echocardiogram PAD. 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 Abdominal aortic aneurysm screening of February 2016 was negative for abdominal aortic aneurysm S/p radiation and chemo for right lung cancer in 2016, managed by Dr Contreras and Sherly H/o intermittent pneumonia Tobacco use quit in early 2012 Hypertension, monitor blood pressure on current medications Hyperlipidemia, controlled, continue to monitor lipids Hypothyroidism being treated with thyroid replacement therapy Carotid u/s from July 2014 showed minimal bilat carotid arterial disease without evidence of hemodynamic significance Mild hyperglycemia, suggestive of borderline DM II, on blood work of 07/12/15 H/O intramedullary nail for right prox damon on 05-16-[address] De León Clinical Quality Measures DVT/VTE Risk/Contraindication: Risk Factor Score Per Nursin RFS Level Per Nursing on Admit: 2=Moderate Contraindications-Pharm: Other *list below* BRIAN POPE MD Jan 08, 2018 11:17 am
[2018-01-08] MEDS: PANTOPRAZOLE 40 MG (PROTONIX) TAB PO SCH (13:46)
[2018-01-08] MEDS: LEVOTHYROXINE 50 MCG (LEVOTHROID) TAB PO SCH (13:46)
--- NOTE | 2018-01-08 14:50 | Diagnostic Imaging Report ---
INDICATION: COPD and shortness of breath. TIME OF EXAM: 03:02 p.m. Correlation is made with prior study one day earlier. Changes of median sternotomy and CABG are noted. Postsurgical changes in the left upper lobe is seen. There is hyperinflation consistent with COPD. There are small effusions bilaterally. There has been improved aeration at the left base since yesterday. There is some mild residual infiltrate or atelectasis in the right perihilar and right basilar region. No pneumothorax is seen. IMPRESSION: Continued small bilateral pleural effusions with right perihilar and right basilar infiltrate. There has been improved aeration to the left base since yesterday's exam. Dictated by: Dictated on workstation # [id number]
[2018-01-08] MEDS: FAMOTIDINE 20 MG (PEPCID) TABLET PO SCH (19:50)
[2018-01-09 00:04] VITALS: BP 158/85
[2018-01-09] MEDS: RT-ALBUTEROL/IPRATROPIUM 3 ML (DUONEB) VIAL INH SCH ×4 (03:08→19:20)
[2018-01-09 04:05] VITALS: BP 159/79
[2018-01-09 06:13] LABS: BASOPHILS % (AUTO) 0 % (0-10); EOSINOPHILS % (AUTO) 0 % (0-10); HEMATOCRIT 33 % (35-52); HEMOGLOBIN 9.9 G/DL (11.5-16.0); LYMPHOCYTES # (AUTO) 0.4 X 10^3 (1.0-4.0); LYMPHOCYTES % (AUTO) 4 % (12-44); MEAN CORPUSCULAR HEMOGLOBIN 31 PG (25-34); MEAN CORPUSCULAR HGB CONC 30 G/DL (32-36); MEAN CORPUSCULAR VOLUME 103 FL (80-99); MEAN PLATELET VOLUME 9.9 FL (7.4-10.4); MONOCYTES # (AUTO) 0.6 X 10^3 (0.0-1.0); MONOCYTES % (AUTO) 6 % (0-12); NEUTROPHILS # (AUTO) 8.4 X 10^3 (1.8-7.8); NEUTROPHILS % (AUTO) 90 % (42-75); PLATELET COUNT 425 10^3/uL (130-400); RED BLOOD COUNT 3.16 10^6/uL (4.35-5.85); RED CELL DISTRIBUTION WIDTH 17.9 % (10.0-14.5); WHITE BLOOD COUNT 9.4 10^3/uL (4.3-11.0)
[2018-01-09] MEDS: inSUlin ASPART (NovoLOG) 1 UNIT/0.01 ML (CHARGE PER UNIT) SC SCH ×4 (06:27→21:06)
[2018-01-09] MEDS: metFORMIN 500 MG (GLUCOPHAGE) TAB PO SCH ×2 (06:27→16:33)
[2018-01-09 06:58] LABS: ALANINE AMINOTRANSFERASE 34 U/L (0-55); ALBUMIN 3.1 GM/DL (3.2-4.5); ALKALINE PHOSPHATASE 106 U/L (40-136); BILIRUBIN,TOTAL 0.7 MG/DL (0.1-1.0); BUN/CREATININE RATIO 51; CALCIUM 7.9 MG/DL (8.5-10.1); CARBON DIOXIDE 35 MMOL/L (21-32); CHLORIDE 92 MMOL/L (98-107); CREATININE SERUM 0.69 MG/DL (0.60-1.30); GFR ESTIMATED > 60; GLUCOSE 345 MG/DL (70-105); POTASSIUM 4.5 MMOL/L (3.6-5.0); SODIUM 140 MMOL/L (135-145); TOTAL PROTEIN 5.4 GM/DL (6.4-8.2)
--- NOTE | 2018-01-09 07:00 | Cardiology Progress Note ---
Subjective Date Seen by Provider: Jan 09, 2018 Time Seen by Provider: 06:59 Subjective/Events-last exam Patient is sitting in bed, feeling better, still having some shortness of breath , asking to go home. Review of Systems General: No Chills, No Night Sweats, No Fatigue, No Malaise, No Appetite, No Other HEENT: No Head Aches, No Visual Changes, No Eye Pain, No Ear Pain, No Dysphasia , No Sinus Congestion, No Post Nasal Drip, No Sore Throat, No Other Pulmonary: Dyspnea; No Cough, No Pleuritic Chest Pain, No Other Cardiovascular: No: Chest Pain, Palpitations, Orthopnea, Paroxysmal Noc. Dyspnea, Edema, Lt Headedness, Other Objective-Cardiology Exam Last Set of Vital Signs Vital Signs 01/09/18 04:05 Temp 97.8 Pulse 80 Resp 17 B/P (MAP) 159/79 (105) Pulse Ox 98 O2 Delivery Nasal Cannula O2 Flow Rate 4.00 Capillary Refill : Less Than 3 SecondsLess Than 3 Seconds I&O Intake and Output 01/09/18 00:00 Intake Total 1030 ml Output Total 1350 ml Balance -320 ml Intake Oral 1030 ml Output Urine Total 1350 ml # Voids 3 # Bowel Movements 2 General: Alert, Oriented X3, Cooperative HEENT: Atraumatic, PERRLA Neck: Supple, No JVD, No Thyromegaly Lungs: Normal Air Movement, Other (reba rhonchi) Heart: Regular Rate, Normal S1, Normal S2, No Murmurs Abdomen: Normal Bowel Sounds, Soft, No Tenderness, No Hepatosplenomegaly, No Masses Extremities: No Clubbing, No Cyanosis, No Edema, Normal Pulses, No Tenderness/ Swelling Skin: No Rashes, No Breakdown, No Significant Lesion Neuro: Normal Gait, Normal Speech, Strength at 5/5 X4 Ext, Normal Tone, Sensation Intact Psych/Mental Status: Mental Status NL, Mood NL Results Lab Laboratory Tests 01/09/18 06:03 A/P-Cardiology Admission Diagnosis paroxysmal atrial fibrillation Tachycardia Shortness of breath Acute exacerbation of COPD Assessment/Plan Paroxysmal atrial fibrillation, atrial flutter, status post electrical cardioversion, maintained in sinus rhythm. Continue to monitor [id number] score of 5, yearly risk of stroke without oral anticoagulation is 6 percent, patient was maintained on Eliquis 2.5 mg twice daily which is subtherapeutic, she is now on Eliquis 5 mg twice daily. Continue to monitor Pneumonia, receiving antibiotics, managed by primary care physician COPD, oxygen dependent, acute exacerbation managed by primary care team. Generalized weakness, loss of energy, probably secondary to hypoxemia. CAD. S/p CABG Feb [address] Guzman in [place], [place]. She had LEMUS to LAD, SVG to PDA, and sequential SVG to diagonal and OM. Last cardiac cath was on 07/12/15 and it showed multivessel CAD with patent SVG to distal RCA, patent LEMUS to distal LAD, and a sequential SVG with 50-60% mid-graft stenosis that was patent to first diag but occluded to OM. She underwent successful balloon angioplasty of the OM to which the graft was occluded. continue to monitor at this time Echocardiogram from January 03, 2015 showed LVEF 60%. Last echo of 04/19/[address] Funk showed LVEF 55-60%, mod diastolic dysfunction of LV, severe pulm htn with RVSP approx 72 mmHg, planning to repeat 2-D echocardiogram Pulmonary hypertension, followed and managed by Dr. Dubois. Planning to repeat echocardiogram PAD. 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 Abdominal aortic aneurysm screening of February 2016 was negative for abdominal aortic aneurysm S/p radiation and chemo for right lung cancer in 2016, managed by Dr Contreras and Sherly H/o intermittent pneumonia Tobacco use quit in early 2012 Hypertension, monitor blood pressure on current medications Hyperlipidemia, controlled, continue to monitor lipids Hypothyroidism being treated with thyroid replacement therapy Carotid u/s from July 2014 showed minimal bilat carotid arterial disease without evidence of hemodynamic significance Mild hyperglycemia, suggestive of borderline DM II, on blood work of 07/12/15 H/O intramedullary nail for right prox damon on 05-16-[address] De León Clinical Quality Measures DVT/VTE Risk/Contraindication: Risk Factor Score Per Nursin RFS Level Per Nursing on Admit: 2=Moderate Contraindications-Pharm: Other *list below* BRIAN POPE MD Jan 09, 2018 07:00
--- NOTE | 2018-01-09 07:32 | Diagnostic Imaging Report ---
Clinical indication: Followup COPD exacerbation and shortness of air. Exam: Portable chest x-ray upright view. Comparison: Chest x-ray dated 01/08/2018. Findings: COPD lung changes are seen with hyperinflated lungs. There is slight increased airspace opacities in the periphery of the right lung base and left lung base region and also involving the middle lobe region. Previously seen right pleural effusion has resolved. There is no pneumothorax. Cardiac silhouette is enlarged, but stable. There is no pulmonary vascular congestion. Stable postop changes to the chest with sternotomy wires and mediastinal clips. Again seen fracture deformity of the bilateral humeral neck regions. The remainder of this exam shows no significant interval change compared to the prior study of comparison. Impression: 1: There is progression of mild airspace opacities involving the periphery of the right lung base and left lung base and middle lobe region concerning for infiltrate. 2: Again seen COPD lung changes. 3. Cardiomegaly with no significant pulmonary vascular congestion. Dictated by: Dictated on workstation # [id number]
[2018-01-09 08:00] VITALS: BP 145/72
--- NOTE | 2018-01-09 08:21 | Progress Note (SOAP) ---
Subjective Time Seen by a Provider: 08:18 Subjective/Events-last exam Patient states she's feeling okay. Chest x-ray shows slight progression of infiltrate. Patient fragile. COPD. Lung cancer in remission. Patient after cardio conversion for paroxysmal atrial flutter is now in sinus rhythm Objective Exam Vital Signs Date Time Temp Pulse Resp B/P (MAP) Pulse Ox O2 Delivery O2 Flow Rate FiO2 01/09/18 07:00 79 01/09/18 04:05 97.8 80 17 159/79 (105) 98 Nasal Cannula 4.00 01/09/18 03:08 66 18 96 40.00 01/09/18 01:00 72 01/09/18 00:16 100 21 40.00 01/09/18 00:04 97.9 73 17 158/85 (109) 96 Nasal Cannula 4.00 01/08/18 23:01 102 20 40.00 01/08/18 20:00 94 Nasal Cannula 4.00 01/08/18 20:00 98.7 96 20 133/68 (89) 96 Nasal Cannula 4.00 01/08/18 19:46 94 Nasal Cannula 4.00 01/08/18 19:00 97 01/08/18 16:05 98.2 81 20 127/60 (82) 98 NIV Bilevel 01/08/18 15:05 74 26 74 40.00 01/08/18 14:36 97.5 85 20 126/61 (82) 93 Nasal Cannula 4.00 01/08/18 13:00 63 01/08/18 10:00 70 18 140/81 (100) 100 Nasal Cannula 4.00 01/08/18 09:00 71 17 153/85 (107) 100 Nasal Cannula 4.00 I & O 01/09/18 07:00 Intake Total 1530 ml Output Total 1100 ml Balance 430 ml Capillary Refill : Less Than 3 SecondsLess Than 3 Seconds General Appearance: No Apparent Distress, Thin, Other (Fragile) HEENT: Normal ENT Inspection Neck: Full Range of Motion Respiratory: No Accessory Muscle Use, No Respiratory Distress, Decreased Breath Sounds Cardiovascular: Regular Rate, Rhythm, No Murmur Gastrointestinal: non tender, soft Results Lab Laboratory Tests 01/09/18 06:03 Laboratory Tests 01/08/18 11:17: Glucometer 263H 01/08/18 16:06: Glucometer 299H 01/08/18 20:04: Glucometer 273H 01/09/18 05:47: Glucometer 313H 01/09/18 06:03: White Blood Count 9.4, Red Blood Count 3.16L, Hemoglobin 9.9L, Hematocrit 33L, Mean Corpuscular Volume 103H, Mean Corpuscular Hemoglobin 31, Mean Corpuscular Hemoglobin Concent 30L, Red Cell Distribution Width 17.9H, Platelet Count 425H, Mean Platelet Volume 9.9, Neutrophils (%) (Auto) 90H, Lymphocytes (%) (Auto) 4L , Monocytes (%) (Auto) 6, Eosinophils (%) (Auto) 0, Basophils (%) (Auto) 0, Neutrophils # (Auto) 8.4H, Lymphocytes # (Auto) 0.4L, Monocytes # (Auto) 0.6, Eosinophils # (Auto) 0.0, Basophils # (Auto) 0.0, Sodium Level 140, Potassium Level 4.5, Chloride Level 92L, Carbon Dioxide Level 35H, Anion Gap 13, Blood Urea Nitrogen 35H, Creatinine 0.69, Estimat Glomerular Filtration Rate > 60, BUN /Creatinine Ratio 51, Glucose Level 345H, Calcium Level 7.9L, Corrected Calcium 8.6, Total Bilirubin 0.7, Aspartate Amino Transf (AST/SGOT) 15, Alanine Aminotransferase (ALT/SGPT) 34, Alkaline Phosphatase 106, Total Protein 5.4L, Albumin 3.1L Microbiology 01/01/18 Blood Culture - Final, Complete No growth 01/01/18 Urine Culture - Final, Complete See Comments Assessment/Plan Assessment/Plan Assess & Plan/Chief Complaint Confusion. Hypercapnia. COPD with acute exacerbation. Lung cancer in remission. CABG. Coronary artery disease. . 01/06/18. Atrial fibrillation RVR. Proximal atrial fibrillation. Pneumonia. COPD with acute exacerbation. Lung cancer in remission. Shortness of breath. Congestive heart failure. . 01/07/18. Atrial fibrillation. Pneumonia. COPD with acute exacerbation. Lung cancer in remission. Tachycardia. Less shortness of breath . 01/08/18. Atrial flutter to be cardioverted today. Pneumonia. COPD with acute exacerbation. Patient looks weak Lung cancer in remission. Tachycardia. . 01/09/18. Patient in sinus rhythm now area Pneumonia slight progression. COPD. Lung cancer in remission. Clinical Quality Measures Admission Status Admission Dx COPD with acute exacerbation. COPD with respiratory distress. Lung cancer in remission. Tired. Coronary artery disease. Diabetes. CABG history DVT/VTE Risk/Contraindication: Risk Factor Score Per Nursin RFS Level Per Nursing on Admit: 2=Moderate Contraindications-Pharm: Other *list below* WEST MCCAULEY DO Jan 09, 2018 08:21
[2018-01-09] MEDS: FUROSEMIDE 40 MG/4 ML INJ (LASIX) IVP SCH (08:47)
[2018-01-09] MEDS: methylPREDNISolone 40 MG/ML (Solu-MEDROL) VIAL IV SCH ×2 (08:47→21:05)
[2018-01-09] MEDS: APIXABAN 5 MG (ELIQUIS) TABLET PO SCH ×2 (08:48→21:06)
[2018-01-09] MEDS: DILTIAZEM 240 MG (CARDIZEM CD) CAP PO SCH (08:48)
[2018-01-09] MEDS: meTOprolol TARTRATE 50 MG (LOPRESSOR) TAB PO SCH ×2 (08:48→21:06)
[2018-01-09] MEDS: DIGOXIN 0.125 MG (LANOXIN) TAB PO SCH (08:48)
[2018-01-09] MEDS: ASPIRIN E.C. 81 MG (ECOTRIN) TAB PO SCH (08:48)
[2018-01-09] MEDS: ALPRAZolam 0.25 MG (XANAX) TAB PO PRN ×2 (08:48→21:06)
[2018-01-09] MEDS: CEFEPIME 2 GM/NS 50 ML IVPB IV SCH ×2 (09:55)
[2018-01-09 12:00] VITALS: BP 142/80
[2018-01-09] MEDS: PANTOPRAZOLE 40 MG (PROTONIX) TAB PO SCH (15:24)
[2018-01-09] MEDS: LEVOTHYROXINE 50 MCG (LEVOTHROID) TAB PO SCH (15:24)
[2018-01-09 16:20] VITALS: BP 127/70
[2018-01-09 19:20] VITALS: BP 133/81
[2018-01-09] MEDS: FAMOTIDINE 20 MG (PEPCID) TABLET PO SCH (21:06)
[2018-01-10] VITALS: BP 130/70
[2018-01-10] MEDS: RT-ALBUTEROL/IPRATROPIUM 3 ML (DUONEB) VIAL INH SCH ×2 (02:58→10:16)
[2018-01-10 04:00] VITALS: BP 132/72
[2018-01-10 06:35] LABS: BASOPHILS % (AUTO) 0 % (0-10); EOSINOPHILS % (AUTO) 0 % (0-10); HEMATOCRIT 38 % (35-52); HEMOGLOBIN 11.6 G/DL (11.5-16.0); LYMPHOCYTES # (AUTO) 0.2 X 10^3 (1.0-4.0); LYMPHOCYTES % (AUTO) 2 % (12-44); MEAN CORPUSCULAR HEMOGLOBIN 31 PG (25-34); MEAN CORPUSCULAR HGB CONC 30 G/DL (32-36); MEAN CORPUSCULAR VOLUME 102 FL (80-99); MONOCYTES # (AUTO) 0.4 X 10^3 (0.0-1.0); MONOCYTES % (AUTO) 4 % (0-12); NEUTROPHILS # (AUTO) 9.6 X 10^3 (1.8-7.8); NEUTROPHILS % (AUTO) 94 % (42-75); PLATELET COUNT 494 10^3/uL (130-400); RED BLOOD COUNT 3.77 10^6/uL (4.35-5.85); RED CELL DISTRIBUTION WIDTH 17.8 % (10.0-14.5); WHITE BLOOD COUNT 10.2 10^3/uL (4.3-11.0)
[2018-01-10] MEDS: metFORMIN 500 MG (GLUCOPHAGE) TAB PO SCH (06:38)
[2018-01-10] MEDS: inSUlin ASPART (NovoLOG) 1 UNIT/0.01 ML (CHARGE PER UNIT) SC SCH ×2 (06:39→11:00)
[2018-01-10 06:57] LABS: BUN/CREATININE RATIO 44; CALCIUM 9.1 MG/DL (8.5-10.1); CARBON DIOXIDE 43 MMOL/L (21-32); CHLORIDE 88 MMOL/L (98-107); CREATININE SERUM 0.68 MG/DL (0.60-1.30); GFR ESTIMATED > 60; GLUCOSE 287 MG/DL (70-105); MAGNESIUM 2.4 MG/DL (1.8-2.4); POTASSIUM 4.7 MMOL/L (3.6-5.0); SODIUM 142 MMOL/L (135-145)
--- NOTE | 2018-01-10 07:05 | Diagnostic Imaging Report ---
INDICATION: Pneumonia. COPD. COMPARISON: 01/09/2018 FINDINGS: Single frontal radiographic view of the chest was obtained and again demonstrates mild right basilar effusion with associated right basilar atelectasis. Lungs continue to show background of chronic appearing interstitial lung disease. There is persistent nodular opacity within the left lung base. Scattered opacities in the left base and more confluent opacities in the medial right base are stable. Cardiac silhouette is within normal limits. Pulmonary vasculature is slightly prominent. No pneumothorax is seen on either side. Sternotomy wires and calcified aortic atherosclerosis are noted. Old fracture of the proximal right humerus is present. IMPRESSION: 1. Stable exam of the chest showing small right basilar effusion with scattered patchy and confluent bibasilar opacities consistent with probable mixture of infiltrate and atelectasis. 2. Nodular opacity projecting over the left lung base, which again may correspond to patient's nipple. This could be confirmed by repeating the exam with placement of external radiopaque nipple markers. 3. Persistent mild pulmonary vascular congestion. Dictated by: Dictated on workstation # [id number]
--- NOTE | 2018-01-10 07:38 | Cardiology Progress Note ---
Subjective Date Seen by Provider: Jan 10, 2018 Time Seen by Provider: 07:36 Subjective/Events-last exam Patient is laying down in bed, feeling better. Still having some shortness of breath. No palpitation, had short run of atrial tachycardia yesterday evening Review of Systems General: No Chills, No Night Sweats, No Fatigue, No Malaise, No Appetite, No Other HEENT: No Head Aches, No Visual Changes, No Eye Pain, No Ear Pain, No Dysphasia , No Sinus Congestion, No Post Nasal Drip, No Sore Throat, No Other Pulmonary: Dyspnea, Cough; No Pleuritic Chest Pain, No Other Cardiovascular: No: Chest Pain, Palpitations, Orthopnea, Paroxysmal Noc. Dyspnea, Edema, Lt Headedness, Other Objective-Cardiology Exam Last Set of Vital Signs Vital Signs 01/10/18 04:00 Temp 97.9 Pulse 62 Resp 21 B/P (MAP) 132/72 (92) Pulse Ox 94 O2 Delivery Nasal Cannula O2 Flow Rate 4.00 Capillary Refill : Less Than 3 SecondsLess Than 3 Seconds I&O Intake and Output 01/10/18 00:00 Intake Total 1780 ml Output Total 2300 ml Balance -520 ml Intake Oral 1780 ml Output Urine Total 2300 ml # Bowel Movements 2 General: Alert, Oriented X3, Cooperative HEENT: Atraumatic, PERRLA Neck: Supple, No JVD, No Thyromegaly Lungs: Normal Air Movement, Other (reba rhonchi) Heart: Regular Rate, Normal S1, Normal S2, No Murmurs Abdomen: Normal Bowel Sounds, Soft, No Tenderness, No Hepatosplenomegaly, No Masses Extremities: No Clubbing, No Cyanosis, No Edema, Normal Pulses, No Tenderness/ Swelling Skin: No Rashes, No Breakdown, No Significant Lesion Neuro: Normal Gait, Normal Speech, Strength at 5/5 X4 Ext, Normal Tone, Sensation Intact Psych/Mental Status: Mental Status NL, Mood NL Results Lab Laboratory Tests 01/10/18 06:00 A/P-Cardiology Admission Diagnosis paroxysmal atrial fibrillation Tachycardia Shortness of breath Acute exacerbation of COPD Assessment/Plan Paroxysmal atrial fibrillation, atrial flutter, status post electrical cardioversion, maintained in sinus rhythm. Continue to monitor [id number] score of 5, yearly risk of stroke without oral anticoagulation is 6 percent, patient was maintained on Eliquis 2.5 mg twice daily which is subtherapeutic, she is now on Eliquis 5 mg twice daily. Continue to monitor Pneumonia, receiving antibiotics, still having some shortness of breath. Slow improvement. COPD, oxygen dependent, acute exacerbation managed by primary care team. CAD. S/p CABG Feb [address] Guzman in [place], [place]. She had LEMUS to LAD, SVG to PDA, and sequential SVG to diagonal and OM. Last cardiac cath was on 07/12/15 and it showed multivessel CAD with patent SVG to distal RCA, patent LEMUS to distal LAD, and a sequential SVG with 50-60% mid-graft stenosis that was patent to first diag but occluded to OM. She underwent successful balloon angioplasty of the OM to which the graft was occluded. continue to monitor at this time Echocardiogram showed normal left ventricle size and function, dilated left atrium, moderate mitral regurgitation, moderate to severe tricuspid regurgitation. Pulmonary hypertension, followed and managed by Dr. Dubois. PAD. S/p stenting of the L common iliac and L ext iliac in Mar 2016; s/p stenting of R exertnal iliac artery with 7.0 x 39 mm stent on 07-03-16 - currently does not report any significant leg claudication L renal artery is chronically occluded Abdominal aortic aneurysm screening of February 2016 was negative for abdominal aortic aneurysm S/p radiation and chemo for right lung cancer in 2016, managed by Dr Contreras and Sherly H/o intermittent pneumonia Tobacco use quit in early 2012 Hypertension, monitor blood pressure on current medications Hyperlipidemia, controlled, continue to monitor lipids Hypothyroidism being treated with thyroid replacement therapy Carotid u/s from July 2014 showed minimal bilat carotid arterial disease without evidence of hemodynamic significance Mild hyperglycemia, suggestive of borderline DM II, on blood work of 07/12/15 H/O intramedullary nail for right prox damon on 05-16-[address] De León Clinical Quality Measures DVT/VTE Risk/Contraindication: Risk Factor Score Per Nursin RFS Level Per Nursing on Admit: 2=Moderate Contraindications-Pharm: Other *list below* BRIAN POPE MD Jan 10, 2018 07:38
[2018-01-10 08:00] VITALS: BP 168/81
--- NOTE | 2018-01-10 08:15 | Progress Note (SOAP) ---
Subjective Time Seen by a Provider: 08:13 Subjective/Events-last exam Patient had a good day yesterday. Patient feeling good today. Plan to [facility] Chest x-ray stabilized Objective Exam Vital Signs Date Time Temp Pulse Resp B/P (MAP) Pulse Ox O2 Delivery O2 Flow Rate FiO2 01/10/18 07:00 60 01/10/18 04:00 97.9 62 21 132/72 (92) 94 Nasal Cannula 4.00 01/10/18 03:00 94 Nasal Cannula 4.00 01/10/18 00:53 64 01/10/18 00:00 98.6 68 21 130/70 (90) NIV Bilevel 01/09/18 23:10 67 21 94 40.00 01/09/18 20:00 Nasal Cannula 4.00 01/09/18 19:23 93 Nasal Cannula 4.00 01/09/18 19:23 75 01/09/18 19:20 98.6 74 20 133/81 (98) 93 High Flow N/C 4.00 01/09/18 16:52 69 01/09/18 16:20 99.5 71 18 127/70 (89) 95 High Flow N/C 4.00 01/09/18 14:42 95 Nasal Cannula 4.00 01/09/18 13:00 93 01/09/18 12:00 98.2 84 20 142/80 (100) 96 Nasal Cannula 4.00 01/09/18 09:02 93 Nasal Cannula 4.00 I & O 01/10/18 07:00 Intake Total 1480 ml Output Total 2750 ml Balance -1270 ml Capillary Refill : Less Than 3 SecondsLess Than 3 Seconds General Appearance: No Apparent Distress, Thin HEENT: Normal ENT Inspection Neck: Normal Inspection, Non Tender Respiratory: No Accessory Muscle Use, No Respiratory Distress, Decreased Breath Sounds Cardiovascular: Regular Rate, Rhythm, No Murmur Gastrointestinal: non tender Results Lab Laboratory Tests 01/09/18 10:58: Glucometer 247H 01/09/18 16:21: Glucometer 324H 01/09/18 20:51: Glucometer 315H 01/10/18 06:00: White Blood Count 10.2, Red Blood Count 3.77L, Hemoglobin 11.6, Hematocrit 38, Mean Corpuscular Volume 102H, Mean Corpuscular Hemoglobin 31, Mean Corpuscular Hemoglobin Concent 30L, Red Cell Distribution Width 17.8H, Platelet Count 494H, Mean Platelet Volume 10.0, Neutrophils (%) (Auto) 94H, Lymphocytes (%) (Auto) 2L , Monocytes (%) (Auto) 4, Eosinophils (%) (Auto) 0, Basophils (%) (Auto) 0, Neutrophils # (Auto) 9.6H, Lymphocytes # (Auto) 0.2L, Monocytes # (Auto) 0.4, Eosinophils # (Auto) 0.0, Basophils # (Auto) 0.0, Sodium Level 142, Potassium Level 4.7, Chloride Level 88L, Carbon Dioxide Level 43H, Anion Gap 11, Blood Urea Nitrogen 30H, Creatinine 0.68, Estimat Glomerular Filtration Rate > 60, BUN /Creatinine Ratio 44, Glucose Level 287H, Calcium Level 9.1, Magnesium Level 2.4 01/10/18 06:10: Glucometer 291H Microbiology 01/01/18 Blood Culture - Final, Complete No growth 01/01/18 Urine Culture - Final, Complete See Comments Assessment/Plan Assessment/Plan Assess & Plan/Chief Complaint Confusion. Hypercapnia. COPD with acute exacerbation. Lung cancer in remission. CABG. Coronary artery disease. . 01/06/18. Atrial fibrillation RVR. Proximal atrial fibrillation. Pneumonia. COPD with acute exacerbation. Lung cancer in remission. Shortness of breath. Congestive heart failure. . 01/07/18. Atrial fibrillation. Pneumonia. COPD with acute exacerbation. Lung cancer in remission. Tachycardia. Less shortness of breath . 01/08/18. Atrial flutter to be cardioverted today. Pneumonia. COPD with acute exacerbation. Patient looks weak Lung cancer in remission. Tachycardia. . 01/09/18. Patient in sinus rhythm now area Pneumonia slight progression. COPD. Lung cancer in remission.. . . Heart sinus rhythm. Pneumonia stabilized. COPD. Lung cancer in remission. Plan to discharge today Clinical Quality Measures Admission Status Admission Dx COPD with acute exacerbation. COPD with respiratory distress. Lung cancer in remission. Tired. Coronary artery disease. Diabetes. CABG history DVT/VTE Risk/Contraindication: Risk Factor Score Per Nursin RFS Level Per Nursing on Admit: 2=Moderate Contraindications-Pharm: Other *list below* WEST MCCAULEY DO Jan 10, 2018 08:15
--- NOTE | 2018-01-10 08:21 | Discharge Inst-Skilled Nursing ---
Discharge Inst-Skilled NF Patient Instructions Patient Problems: Pneumonia.. COPD. Atrial flutter resolved. Weakness. Lung cancer in remission Patient Instructions: 2 office next Consult/Follow Up/Orders Follow Up Appt.: 2 office next Skilled NF Admit to: [facility] [address] Certification (SNF) I certify that SNF services are required to be given on an inpatient basis because of the above named patient's need for usp care on a continuing basis for the conditions(s) for which he/she was receiving inpatient hospital services prior to his/her transfer to the SNF. Longterm Facility Order: [facility] [employer]-Evaluate & Treat, Physical Therapy-Evaluate & Treat New & Resume Previous Orders Sanju Mccauley Jan 10, 2018 08:19 SANJU MCCAULEY DO Jan 10, 2018 08:21
[2018-01-10] MEDS ORDERED: CEFDINIR 300 MG (OMNICEF) CAP PO SCH (09:00)
[2018-01-10] MEDS ORDERED: AZITHROMYCIN 250 MG TAB (ZITHROMAX) PO SCH (09:00)
[2018-01-10] MEDS: meTOprolol TARTRATE 50 MG (LOPRESSOR) TAB PO SCH (10:46)
[2018-01-10] MEDS: APIXABAN 5 MG (ELIQUIS) TABLET PO SCH (10:46)
[2018-01-10] MEDS: DIGOXIN 0.125 MG (LANOXIN) TAB PO SCH (10:46)
[2018-01-10] MEDS: ALPRAZolam 0.25 MG (XANAX) TAB PO PRN (10:46)
[2018-01-10] MEDS: FUROSEMIDE 40 MG/4 ML INJ (LASIX) IVP SCH (10:47)
[2018-01-10] MEDS: ASPIRIN E.C. 81 MG (ECOTRIN) TAB PO SCH (10:47)
[2018-01-10] MEDS: DILTIAZEM 240 MG (CARDIZEM CD) CAP PO SCH (10:48)
[2018-01-10] MEDS ORDERED: AZIT250T12 PO (11:43)
[2018-01-10] MEDS ORDERED: CEFD300C3 PO (11:43)
[2018-01-10 12:00] VITALS: BP 172/81
[2018-01-10] MEDS ORDERED: APIX5TAB PO (13:08)
[2018-01-10 13:15] VITALS: BP 172/81
[2018-01-11] MEDS ORDERED: predniSONE 20 MG TAB PO SCH (07:00)
--- NOTE | 2018-01-14 19:15 | Discharge Summary ---
Diagnosis/Chief Complaint Date of Admission Jan 01, 2018 at 11:55 Date of Discharge Jan 10, 2018 at 13:15 Discharge Date: Jan 10, 2018 Discharge Diagnosis COPD with acute exacerbation. Pneumonia. Atrial fibrillation with RVR. Anxiety. Hypertension. DO NOT RESUSCITATE. Lung cancer. Coronary artery disease acute and chronic respiratory failure. Coronary artery disease small cell lung cancer. History of tobaccoism. Diabetes Reason Hospital Visit Patient resident of [facility]. Patient's pulse ox 68 and 4 L of nasal oxygen. Patient short of breath. Patient brought to emergency room by EMS area Patient has history of CAD, CABG. Patient has productive loose cough. Patient has history of lung cancer that is in remission. Patient had a previous history of smoking. Patient has history of COPD with oxygen at 4 L Discharge Summary Consultations Cardiology. Pulmonology Discharge Physical Examination Allergies: Coded Allergies: Penicillins (Verified Allergy, Severe, ANAPHYLAXIS (Pt has received Cefazolin & Cefepime w/o issue), 01/03/18) hydrochlorothiazide (Verified Allergy, Intermediate, RASH, 01/29/17) penicillin G (Verified Allergy, Unknown, 09/04/16) Vitals & I&Os Vital Signs Date Time Temp Pulse Resp B/P (MAP) Pulse Ox O2 Delivery O2 Flow Rate FiO2 01/10/18 13:15 75 16 172/81 96 Nasal Cannula 4.00 01/10/18 12:00 98.6 Hospital Course Patient discharge back to the intermediate patient feeling better Labs (last 24 hrs) Laboratory Tests 01/01/18 09:15: White Blood Count 6.3, Red Blood Count 3.10L, Hemoglobin 9.8L, Hematocrit 32L, Mean Corpuscular Volume 103H, Mean Corpuscular Hemoglobin 32, Mean Corpuscular Hemoglobin Concent 31L, Red Cell Distribution Width 18.9H, Platelet Count 364, Mean Platelet Volume 9.5, Neutrophils (%) (Auto) 81H, Lymphocytes (%) (Auto) 7L , Monocytes (%) (Auto) 11, Eosinophils (%) (Auto) 1, Basophils (%) (Auto) 0, Neutrophils # (Auto) 5.1, Lymphocytes # (Auto) 0.5L, Monocytes # (Auto) 0.7, Eosinophils # (Auto) 0.0, Basophils # (Auto) 0.0, Neutrophils % (Manual) 77, Lymphocytes % (Manual) 7, Monocytes % (Manual) 14, Eosinophils % (Manual) 1, Basophils % (Manual) 0, Band Neutrophils 1, Polychromasia SLIGHT, Anisocytosis SLIGHT, Macrocytosis SLIGHT, Prothrombin Time 14.6, INR Comment 1.1, Activated Partial Thromboplast Time 27, Sodium Level 139, Potassium Level 4.1, Chloride Level 92L, Carbon Dioxide Level 38H, Anion Gap 9, Blood Urea Nitrogen 18, Creatinine 0.71, Estimat Glomerular Filtration Rate > 60, BUN/Creatinine Ratio 25, Glucose Level 158H, Lactic Acid Level 1.95, Calcium Level 9.0, Corrected Calcium 9.2, Total Bilirubin 0.6, Aspartate Amino Transf (AST/SGOT) 35H, Alanine Aminotransferase (ALT/SGPT) 53, Alkaline Phosphatase 171H, Troponin I < 0.30, Total Protein 6.7, Albumin 3.7 01/01/18 09:19: Blood Gas Puncture Site RT BRACH, Blood Gas Patient Temperature 98.4, Arterial Blood pH 7.35L, Arterial Blood Partial Pressure CO2 78*H, Arterial Blood Partial Pressure O2 45L, Arterial Blood HCO3 42*H, Arterial Blood Total CO2 44.4H, Arterial Blood Oxygen Saturation 48L, Arterial Blood Base Excess 15.7H, Bruce Test NA, Blood Gas Ventilator Setting NO, Blood Gas Inspired Oxygen 4L 01/01/18 11:05: Urine Color YELLOW, Urine Clarity SLIGHTLY CLOUDY, Urine pH 5, Urine Specific [place] 1.020, Urine Protein 2+H, Urine Glucose (UA) 3+H, Urine Ketones NEGATIVE , Urine Nitrite NEGATIVE, Urine Bilirubin NEGATIVE, Urine Urobilinogen NORMAL, Urine Leukocyte Esterase 1+H, Urine RBC (Auto) NEGATIVE, Urine RBC NONE, Urine WBC 2-5, Urine Squamous Epithelial Cells 5-10, Urine Crystals NONE, Urine Bacteria TRACE, Urine Casts NONE, Urine Mucus NEGATIVE, Urine Culture Indicated NO 01/01/18 11:55: Lab Scanned Report Referred Lab Report 01/01/18 16:31: Glucometer 318H 01/01/18 20:55: Glucometer 340H 01/02/18 05:21: Glucometer 237H 01/02/18 05:55: White Blood Count 6.6, Red Blood Count 3.08L, Hemoglobin 9.4L, Hematocrit 33L, Mean Corpuscular Volume 106H, Mean Corpuscular Hemoglobin 31, Mean Corpuscular Hemoglobin Concent 29L, Red Cell Distribution Width 19.6H, Platelet Count 377, Mean Platelet Volume 9.8, Neutrophils (%) (Auto) 85H, Lymphocytes (%) (Auto) 4L , Monocytes (%) (Auto) 10, Eosinophils (%) (Auto) 0, Basophils (%) (Auto) 0, Neutrophils # (Auto) 5.6, Lymphocytes # (Auto) 0.3L, Monocytes # (Auto) 0.7, Eosinophils # (Auto) 0.0, Basophils # (Auto) 0.0, Sodium Level 141, Potassium Level 5.6H, Chloride Level 103, Carbon Dioxide Level 34H, Anion Gap 4L, Blood Urea Nitrogen 18, Creatinine 0.69, Estimat Glomerular Filtration Rate > 60, BUN/ Creatinine Ratio 26, Glucose Level 239H, Calcium Level 8.3L, Troponin I < 0.30 01/02/18 08:26: Blood Gas Puncture Site LT RAD, Blood Gas Patient Temperature 98.4, Arterial Blood pH 7.29*L, Arterial Blood Partial Pressure CO2 74*H, Arterial Blood Partial Pressure O2 98H, Arterial Blood HCO3 34H, Arterial Blood Total CO2 36.5H , Arterial Blood Oxygen Saturation 98, Arterial Blood Base Excess 7.7H, Bruce Test YES-POS, Blood Gas Ventilator Setting NO, Blood Gas Inspired Oxygen 5L 01/02/18 11:51: Glucometer 194H 01/02/18 15:32: Glucometer 248H 01/02/18 20:21: Glucometer 199H 01/03/18 05:06: Glucometer 253H 01/03/18 05:25: White Blood Count 7.5, Red Blood Count 2.89L, Hemoglobin 9.4L, Hematocrit 31L, Mean Corpuscular Volume 106H, Mean Corpuscular Hemoglobin 33, Mean Corpuscular Hemoglobin Concent 31L, Red Cell Distribution Width 19.6H, Platelet Count 354, Mean Platelet Volume 10.0, Neutrophils (%) (Auto) 95H, Lymphocytes (%) (Auto) 3L , Monocytes (%) (Auto) 3, Eosinophils (%) (Auto) 0, Basophils (%) (Auto) 0, Neutrophils # (Auto) 7.1, Lymphocytes # (Auto) 0.2L, Monocytes # (Auto) 0.2, Eosinophils # (Auto) 0.0, Basophils # (Auto) 0.0, Sodium Level 138, Potassium Level 4.7, Chloride Level 102, Carbon Dioxide Level 30, Anion Gap 6, Blood Urea Nitrogen 18, Creatinine 0.69, Estimat Glomerular Filtration Rate > 60, BUN/ Creatinine Ratio 26, Glucose Level 266H, Calcium Level 8.3L, Corrected Calcium 8.9, Total Bilirubin 0.6, Aspartate Amino Transf (AST/SGOT) 51H, Alanine Aminotransferase (ALT/SGPT) 93H, Alkaline Phosphatase 165H, B-Type Natriuretic Peptide 2596.5H, Total Protein 5.8L, Albumin 3.2 01/03/18 08:55: Blood Gas Puncture Site LEFT RADIAL, Blood Gas Patient Temperature 96.2, Arterial Blood pH 7.26*L, Arterial Blood Partial Pressure CO2 69H, Arterial Blood Partial Pressure O2 75L, Arterial Blood HCO3 31H, Arterial Blood Total CO2 33.2H, Arterial Blood Oxygen Saturation 94, Arterial Blood Base Excess 4.1H , Bruce Test POSITIVE, Blood Gas Ventilator Setting NO, Blood Gas Inspired Oxygen 4 L 01/03/18 11:11: Glucometer 214H 01/03/18 16:10: Glucometer 322H 01/03/18 19:53: Glucometer 353H 01/04/18 05:12: Glucometer 237H 01/04/18 05:20: White Blood Count 7.3, Red Blood Count 3.18L, Hemoglobin 9.7L, Hematocrit 33L, Mean Corpuscular Volume 105H, Mean Corpuscular Hemoglobin 31, Mean Corpuscular Hemoglobin Concent 29L, Red Cell Distribution Width 19.2H, Platelet Count 393, Mean Platelet Volume 10.0, Neutrophils (%) (Auto) 94H, Lymphocytes (%) (Auto) 2L , Monocytes (%) (Auto) 4, Eosinophils (%) (Auto) 0, Basophils (%) (Auto) 0, Neutrophils # (Auto) 6.9, Lymphocytes # (Auto) 0.2L, Monocytes # (Auto) 0.3, Eosinophils # (Auto) 0.0, Basophils # (Auto) 0.0, Sodium Level 139, Potassium Level 4.2, Chloride Level 97L, Carbon Dioxide Level 31, Anion Gap 11, Blood Urea Nitrogen 19H, Creatinine 0.71, Estimat Glomerular Filtration Rate > 60, BUN /Creatinine Ratio 27, Glucose Level 248H, Calcium Level 8.5, Corrected Calcium 9.0, Total Bilirubin 0.7, Aspartate Amino Transf (AST/SGOT) 24, Alanine Aminotransferase (ALT/SGPT) 87H, Alkaline Phosphatase 162H, Total Protein 6.1L, Albumin 3.4, Smear Scan 01/04/18 11:19: Glucometer 279H 01/04/18 16:37: Glucometer 235H 01/04/18 20:26: Glucometer 361H 01/05/18 04:48: White Blood Count 6.9, Red Blood Count 3.07L, Hemoglobin 9.6L, Hematocrit 32L, Mean Corpuscular Volume 105H, Mean Corpuscular Hemoglobin 31, Mean Corpuscular Hemoglobin Concent 30L, Red Cell Distribution Width 19.2H, Platelet Count 394, Mean Platelet Volume 10.0, Neutrophils (%) (Auto) 93H, Lymphocytes (%) (Auto) 3L , Monocytes (%) (Auto) 5, Eosinophils (%) (Auto) 0, Basophils (%) (Auto) 0, Neutrophils # (Auto) 6.4, Lymphocytes # (Auto) 0.2L, Monocytes # (Auto) 0.3, Eosinophils # (Auto) 0.0, Basophils # (Auto) 0.0, Sodium Level 140, Potassium Level 4.3, Chloride Level 97L, Carbon Dioxide Level 32, Anion Gap 11, Blood Urea Nitrogen 25H, Creatinine 0.78, Estimat Glomerular Filtration Rate > 60, BUN /Creatinine Ratio 32, Glucose Level 242H, Calcium Level 8.5, Corrected Calcium 9.1, Magnesium Level 2.0, Total Bilirubin 0.6, Aspartate Amino Transf (AST/SGOT ) 15, Alanine Aminotransferase (ALT/SGPT) 70H, Alkaline Phosphatase 141H, Troponin I < 0.30, B-Type Natriuretic Peptide 2614.0H, Total Protein 5.8L, Albumin 3.3 01/05/18 05:44: Glucometer 239H 01/05/18 10:30: Troponin I < 0.30 01/05/18 10:39: Glucometer 270H 01/05/18 15:24: Glucometer 195H 01/05/18 16:38: Troponin I < 0.30 01/05/18 20:51: Glucometer 317H 01/06/18 03:07: White Blood Count 6.4, Red Blood Count 3.22L, Hemoglobin 10.1L, Hematocrit 33L, Mean Corpuscular Volume 102H, Mean Corpuscular Hemoglobin 31, Mean Corpuscular Hemoglobin Concent 31L, Red Cell Distribution Width 19.2H, Platelet Count 428H, Mean Platelet Volume 10.0, Sodium Level 141, Potassium Level 4.0, Chloride Level 95L, Carbon Dioxide Level 34H, Anion Gap 12, Blood Urea Nitrogen 24H, Creatinine 0.74, Estimat Glomerular Filtration Rate > 60, BUN/Creatinine Ratio 32, Glucose Level 251H, Calcium Level 8.3L, Corrected Calcium 8.9, Magnesium Level 2.1, Total Bilirubin 0.6, Aspartate Amino Transf (AST/SGOT) 14, Alanine Aminotransferase (ALT/SGPT) 55, Alkaline Phosphatase 127, Total Protein 5.6L, Albumin 3.2, Thyroid Stimulating Hormone (TSH) 0.18L 01/06/18 11:07: Glucometer 251H 01/06/18 16:27: Glucometer 322H 01/06/18 21:33: Glucometer 398H 01/07/18 04:10: White Blood Count 8.1, Red Blood Count 3.37L, Hemoglobin 10.4L, Hematocrit 35, Mean Corpuscular Volume 103H, Mean Corpuscular Hemoglobin 31, Mean Corpuscular Hemoglobin Concent 30L, Red Cell Distribution Width 18.5H, Platelet Count 460H, Mean Platelet Volume 10.0, Neutrophils (%) (Auto) 94H, Lymphocytes (%) (Auto) 1L , Monocytes (%) (Auto) 5, Eosinophils (%) (Auto) 0, Basophils (%) (Auto) 0, Neutrophils # (Auto) 7.6, Lymphocytes # (Auto) 0.1L, Monocytes # (Auto) 0.4, Eosinophils # (Auto) 0.0, Basophils # (Auto) 0.0, Neutrophils % (Manual) 95, Lymphocytes % (Manual) 1, Monocytes % (Manual) 4, Macrocytosis SLIGHT, Sodium Level 139, Potassium Level 4.3, Chloride Level 93L, Carbon Dioxide Level 35H, Anion Gap 11, Blood Urea Nitrogen 29H, Creatinine 0.77, Estimat Glomerular Filtration Rate > 60, BUN/Creatinine Ratio 38, Glucose Level 244H, Calcium Level 8.9, Corrected Calcium 9.3, Magnesium Level 2.2, Total Bilirubin 0.5, Aspartate Amino Transf (AST/SGOT) 13, Alanine Aminotransferase (ALT/SGPT) 50, Alkaline Phosphatase 124, Total Protein 6.1L, Albumin 3.5 01/07/18 11:06: Glucometer 412*H 01/07/18 16:41: Glucometer 308H 01/07/18 20:42: Glucometer 295H 01/08/18 03:55: White Blood Count 8.3, Red Blood Count 3.57L, Hemoglobin 10.9L, Hematocrit 37, Mean Corpuscular Volume 104H, Mean Corpuscular Hemoglobin 31, Mean Corpuscular Hemoglobin Concent 29L, Red Cell Distribution Width 18.5H, Platelet Count 477H, Mean Platelet Volume 9.8, Sodium Level 143, Potassium Level 4.2, Chloride Level 92L, Carbon Dioxide Level 38H, Anion Gap 13, Blood Urea Nitrogen 31H, Creatinine 0.73, Estimat Glomerular Filtration Rate > 60, BUN/Creatinine Ratio 42, Glucose Level 244H, Calcium Level 9.0 01/08/18 11:17: Glucometer 263H 01/08/18 16:06: Glucometer 299H 01/08/18 20:04: Glucometer 273H 01/09/18 05:47: Glucometer 313H 01/09/18 06:03: White Blood Count 9.4, Red Blood Count 3.16L, Hemoglobin 9.9L, Hematocrit 33L, Mean Corpuscular Volume 103H, Mean Corpuscular Hemoglobin 31, Mean Corpuscular Hemoglobin Concent 30L, Red Cell Distribution Width 17.9H, Platelet Count 425H, Mean Platelet Volume 9.9, Neutrophils (%) (Auto) 90H, Lymphocytes (%) (Auto) 4L , Monocytes (%) (Auto) 6, Eosinophils (%) (Auto) 0, Basophils (%) (Auto) 0, Neutrophils # (Auto) 8.4H, Lymphocytes # (Auto) 0.4L, Monocytes # (Auto) 0.6, Eosinophils # (Auto) 0.0, Basophils # (Auto) 0.0, Sodium Level 140, Potassium Level 4.5, Chloride Level 92L, Carbon Dioxide Level 35H, Anion Gap 13, Blood Urea Nitrogen 35H, Creatinine 0.69, Estimat Glomerular Filtration Rate > 60, BUN /Creatinine Ratio 51, Glucose Level 345H, Calcium Level 7.9L, Corrected Calcium 8.6, Total Bilirubin 0.7, Aspartate Amino Transf (AST/SGOT) 15, Alanine Aminotransferase (ALT/SGPT) 34, Alkaline Phosphatase 106, Total Protein 5.4L, Albumin 3.1L 01/09/18 10:58: Glucometer 247H 01/09/18 16:21: Glucometer 324H 01/09/18 20:51: Glucometer 315H 01/10/18 06:00: White Blood Count 10.2, Red Blood Count 3.77L, Hemoglobin 11.6, Hematocrit 38, Mean Corpuscular Volume 102H, Mean Corpuscular Hemoglobin 31, Mean Corpuscular Hemoglobin Concent 30L, Red Cell Distribution Width 17.8H, Platelet Count 494H, Mean Platelet Volume 10.0, Neutrophils (%) (Auto) 94H, Lymphocytes (%) (Auto) 2L , Monocytes (%) (Auto) 4, Eosinophils (%) (Auto) 0, Basophils (%) (Auto) 0, Neutrophils # (Auto) 9.6H, Lymphocytes # (Auto) 0.2L, Monocytes # (Auto) 0.4, Eosinophils # (Auto) 0.0, Basophils # (Auto) 0.0, Sodium Level 142, Potassium Level 4.7, Chloride Level 88L, Carbon Dioxide Level 43H, Anion Gap 11, Blood Urea Nitrogen 30H, Creatinine 0.68, Estimat Glomerular Filtration Rate > 60, BUN /Creatinine Ratio 44, Glucose Level 287H, Calcium Level 9.1, Magnesium Level 2.4 01/10/18 06:10: Glucometer 291H 01/10/18 11:28: Glucometer 148H Microbiology 01/01/18 Blood Culture - Final, Complete No growth 01/01/18 Gram Stain - Final, Complete 01/01/18 Sputum Culture - Final, Complete Usual upper respiratory nelson Corynebacterium striatum 01/01/18 Urine Culture - Final, Complete See Comments Laboratory Tests 01/01/18 09:15 01/02/18 05:55 01/03/18 05:25 01/04/18 05:20 01/05/18 04:48 01/06/18 03:07 01/07/18 04:10 01/08/18 03:55 01/09/18 06:03 01/10/18 06:00 Pending Labs Microbiology Date/Time Source Procedure Growth Status 01/01/18 09:29 Peripheral Rt Ac Blood Culture - Final No growth Complete 01/01/18 09:15 Peripheral Lt Ac Blood Culture - Final No growth Complete 01/01/18 09:05 Sputum Induced Gram Stain - Final Complete 01/01/18 09:05 Sputum Culture - Final Usual upper respiratory nelson Corynebacterium striatum Complete 01/01/18 11:05 Urine Clean Catch Urine Culture - Final See Comments Complete Laboratory Tests 01/01/18 09:15: White Blood Count 6.3, Red Blood Count 3.10, Hemoglobin 9.8, Hematocrit 32, Mean Corpuscular Volume 103, Mean Corpuscular Hemoglobin 32, Mean Corpuscular Hemoglobin Concent 31, Red Cell Distribution Width 18.9, Platelet Count 364, Mean Platelet Volume 9.5, Neutrophils (%) (Auto) 81, Lymphocytes (%) (Auto) 7, Monocytes (%) (Auto) 11, Eosinophils (%) (Auto) 1, Basophils (%) (Auto) 0, Neutrophils # (Auto) 5.1, Lymphocytes # (Auto) 0.5, Monocytes # (Auto) 0.7, Eosinophils # (Auto) 0.0, Basophils # (Auto) 0.0, Neutrophils % (Manual) 77, Lymphocytes % (Manual) 7, Monocytes % (Manual) 14, Eosinophils % (Manual) 1, Basophils % (Manual) 0, Band Neutrophils 1, Polychromasia SLIGHT, Anisocytosis SLIGHT, Macrocytosis SLIGHT, Prothrombin Time 14.6, INR Comment 1.1, Activated Partial Thromboplast Time 27, Sodium Level 139, Potassium Level 4.1, Chloride Level 92, Carbon Dioxide Level 38, Anion Gap 9, Blood Urea Nitrogen 18, Creatinine 0.71, Estimat Glomerular Filtration Rate > 60, BUN/Creatinine Ratio 25, Glucose Level 158, Lactic Acid Level 1.95, Calcium Level 9.0, Corrected Calcium 9.2, Total Bilirubin 0.6, Aspartate Amino Transf (AST/SGOT) 35, Alanine Aminotransferase (ALT/SGPT) 53, Alkaline Phosphatase 171, Troponin I < 0.30, Total Protein 6.7, Albumin 3.7 01/01/18 09:19: Blood Gas Puncture Site RT BRACH, Blood Gas Patient Temperature 98.4, Arterial Blood pH 7.35, Arterial Blood Partial Pressure CO2 78, Arterial Blood Partial Pressure O2 45, Arterial Blood HCO3 42, Arterial Blood Total CO2 44.4, Arterial Blood Oxygen Saturation 48, Arterial Blood Base Excess 15.7, Bruce Test NA, Blood Gas Ventilator Setting NO, Blood Gas Inspired Oxygen 4L 01/01/18 11:05: Urine Color YELLOW, Urine Clarity SLIGHTLY CLOUDY, Urine pH 5, Urine Specific [place] 1.020, Urine Protein 2+, Urine Glucose (UA) 3+, Urine Ketones NEGATIVE, Urine Nitrite NEGATIVE, Urine Bilirubin NEGATIVE, Urine Urobilinogen NORMAL, Urine Leukocyte Esterase 1+, Urine RBC (Auto) NEGATIVE, Urine RBC NONE, Urine WBC 2-5, Urine Squamous Epithelial Cells 5-10, Urine Crystals NONE, Urine Bacteria TRACE, Urine Casts NONE, Urine Mucus NEGATIVE, Urine Culture Indicated NO 01/01/18 11:55: Lab Scanned Report Referred Lab Report 01/01/18 16:31: Glucometer 318 01/01/18 20:55: Glucometer 340 01/02/18 05:21: Glucometer 237 01/02/18 05:55: White Blood Count 6.6, Red Blood Count 3.08, Hemoglobin 9.4, Hematocrit 33, Mean Corpuscular Volume 106, Mean Corpuscular Hemoglobin 31, Mean Corpuscular Hemoglobin Concent 29, Red Cell Distribution Width 19.6, Platelet Count 377, Mean Platelet Volume 9.8, Neutrophils (%) (Auto) 85, Lymphocytes (%) (Auto) 4, Monocytes (%) (Auto) 10, Eosinophils (%) (Auto) 0, Basophils (%) (Auto) 0, Neutrophils # (Auto) 5.6, Lymphocytes # (Auto) 0.3, Monocytes # (Auto) 0.7, Eosinophils # (Auto) 0.0, Basophils # (Auto) 0.0, Sodium Level 141, Potassium Level 5.6, Chloride Level 103, Carbon Dioxide Level 34, Anion Gap 4, Blood Urea Nitrogen 18, Creatinine 0.69, Estimat Glomerular Filtration Rate > 60, BUN/ Creatinine Ratio 26, Glucose Level 239, Calcium Level 8.3, Troponin I < 0.30 01/02/18 08:26: Blood Gas Puncture Site LT RAD, Blood Gas Patient Temperature 98.4, Arterial Blood pH 7.29, Arterial Blood Partial Pressure CO2 74, Arterial Blood Partial Pressure O2 98, Arterial Blood HCO3 34, Arterial Blood Total CO2 36.5, Arterial Blood Oxygen Saturation 98, Arterial Blood Base Excess 7.7, Bruce Test YES-POS, Blood Gas Ventilator Setting NO, Blood Gas Inspired Oxygen 5L 01/02/18 11:51: Glucometer 194 01/02/18 15:32: Glucometer 248 01/02/18 20:21: Glucometer 199 01/03/18 05:06: Glucometer 253 01/03/18 05:25: White Blood Count 7.5, Red Blood Count 2.89, Hemoglobin 9.4, Hematocrit 31, Mean Corpuscular Volume 106, Mean Corpuscular Hemoglobin 33, Mean Corpuscular Hemoglobin Concent 31, Red Cell Distribution Width 19.6, Platelet Count 354, Mean Platelet Volume 10.0, Neutrophils (%) (Auto) 95, Lymphocytes (%) (Auto) 3, Monocytes (%) (Auto) 3, Eosinophils (%) (Auto) 0, Basophils (%) (Auto) 0, Neutrophils # (Auto) 7.1, Lymphocytes # (Auto) 0.2, Monocytes # (Auto) 0.2, Eosinophils # (Auto) 0.0, Basophils # (Auto) 0.0, Sodium Level 138, Potassium Level 4.7, Chloride Level 102, Carbon Dioxide Level 30, Anion Gap 6, Blood Urea Nitrogen 18, Creatinine 0.69, Estimat Glomerular Filtration Rate > 60, BUN/ Creatinine Ratio 26, Glucose Level 266, Calcium Level 8.3, Corrected Calcium 8.9 , Total Bilirubin 0.6, Aspartate Amino Transf (AST/SGOT) 51, Alanine Aminotransferase (ALT/SGPT) 93, Alkaline Phosphatase 165, B-Type Natriuretic Peptide 2596.5, Total Protein 5.8, Albumin 3.2 01/03/18 08:55: Blood Gas Puncture Site LEFT RADIAL, Blood Gas Patient Temperature 96.2, Arterial Blood pH 7.26, Arterial Blood Partial Pressure CO2 69, Arterial Blood Partial Pressure O2 75, Arterial Blood HCO3 31, Arterial Blood Total CO2 33.2, Arterial Blood Oxygen Saturation 94, Arterial Blood Base Excess 4.1, Bruce Test POSITIVE, Blood Gas Ventilator Setting NO, Blood Gas Inspired Oxygen 4 L 01/03/18 11:11: Glucometer 214 01/03/18 16:10: Glucometer 322 01/03/18 19:53: Glucometer 353 01/04/18 05:12: Glucometer 237 01/04/18 05:20: White Blood Count 7.3, Red Blood Count 3.18, Hemoglobin 9.7, Hematocrit 33, Mean Corpuscular Volume 105, Mean Corpuscular Hemoglobin 31, Mean Corpuscular Hemoglobin Concent 29, Red Cell Distribution Width 19.2, Platelet Count 393, Mean Platelet Volume 10.0, Neutrophils (%) (Auto) 94, Lymphocytes (%) (Auto) 2, Monocytes (%) (Auto) 4, Eosinophils (%) (Auto) 0, Basophils (%) (Auto) 0, Neutrophils # (Auto) 6.9, Lymphocytes # (Auto) 0.2, Monocytes # (Auto) 0.3, Eosinophils # (Auto) 0.0, Basophils # (Auto) 0.0, Sodium Level 139, Potassium Level 4.2, Chloride Level 97, Carbon Dioxide Level 31, Anion Gap 11, Blood Urea Nitrogen 19, Creatinine 0.71, Estimat Glomerular Filtration Rate > 60, BUN/ Creatinine Ratio 27, Glucose Level 248, Calcium Level 8.5, Corrected Calcium 9.0 , Total Bilirubin 0.7, Aspartate Amino Transf (AST/SGOT) 24, Alanine Aminotransferase (ALT/SGPT) 87, Alkaline Phosphatase 162, Total Protein 6.1, Albumin 3.4, Smear Scan 01/04/18 11:19: Glucometer 279 01/04/18 16:37: Glucometer 235 01/04/18 20:26: Glucometer 361 01/05/18 04:48: White Blood Count 6.9, Red Blood Count 3.07, Hemoglobin 9.6, Hematocrit 32, Mean Corpuscular Volume 105, Mean Corpuscular Hemoglobin 31, Mean Corpuscular Hemoglobin Concent 30, Red Cell Distribution Width 19.2, Platelet Count 394, Mean Platelet Volume 10.0, Neutrophils (%) (Auto) 93, Lymphocytes (%) (Auto) 3, Monocytes (%) (Auto) 5, Eosinophils (%) (Auto) 0, Basophils (%) (Auto) 0, Neutrophils # (Auto) 6.4, Lymphocytes # (Auto) 0.2, Monocytes # (Auto) 0.3, Eosinophils # (Auto) 0.0, Basophils # (Auto) 0.0, Sodium Level 140, Potassium Level 4.3, Chloride Level 97, Carbon Dioxide Level 32, Anion Gap 11, Blood Urea Nitrogen 25, Creatinine 0.78, Estimat Glomerular Filtration Rate > 60, BUN/ Creatinine Ratio 32, Glucose Level 242, Calcium Level 8.5, Corrected Calcium 9.1 , Magnesium Level 2.0, Total Bilirubin 0.6, Aspartate Amino Transf (AST/SGOT) 15 , Alanine Aminotransferase (ALT/SGPT) 70, Alkaline Phosphatase 141, Troponin I < 0.30, B-Type Natriuretic Peptide 2614.0, Total Protein 5.8, Albumin 3.3 01/05/18 05:44: Glucometer 239 01/05/18 10:30: Troponin I < 0.30 01/05/18 10:39: Glucometer 270 01/05/18 15:24: Glucometer 195 01/05/18 16:38: Troponin I < 0.30 01/05/18 20:51: Glucometer 317 01/06/18 03:07: White Blood Count 6.4, Red Blood Count 3.22, Hemoglobin 10.1, Hematocrit 33, Mean Corpuscular Volume 102, Mean Corpuscular Hemoglobin 31, Mean Corpuscular Hemoglobin Concent 31, Red Cell Distribution Width 19.2, Platelet Count 428, Mean Platelet Volume 10.0, Sodium Level 141, Potassium Level 4.0, Chloride Level 95, Carbon Dioxide Level 34, Anion Gap 12, Blood Urea Nitrogen 24, Creatinine 0.74, Estimat Glomerular Filtration Rate > 60, BUN/Creatinine Ratio 32, Glucose Level 251, Calcium Level 8.3, Corrected Calcium 8.9, Magnesium Level 2.1, Total Bilirubin 0.6, Aspartate Amino Transf (AST/SGOT) 14, Alanine Aminotransferase (ALT/SGPT) 55, Alkaline Phosphatase 127, Total Protein 5.6, Albumin 3.2, Thyroid Stimulating Hormone (TSH) 0.18 01/06/18 11:07: Glucometer 251 01/06/18 16:27: Glucometer 322 01/06/18 21:33: Glucometer 398 01/07/18 04:10: White Blood Count 8.1, Red Blood Count 3.37, Hemoglobin 10.4, Hematocrit 35, Mean Corpuscular Volume 103, Mean Corpuscular Hemoglobin 31, Mean Corpuscular Hemoglobin Concent 30, Red Cell Distribution Width 18.5, Platelet Count 460, Mean Platelet Volume 10.0, Neutrophils (%) (Auto) 94, Lymphocytes (%) (Auto) 1, Monocytes (%) (Auto) 5, Eosinophils (%) (Auto) 0, Basophils (%) (Auto) 0, Neutrophils # (Auto) 7.6, Lymphocytes # (Auto) 0.1, Monocytes # (Auto) 0.4, Eosinophils # (Auto) 0.0, Basophils # (Auto) 0.0, Neutrophils % (Manual) 95, Lymphocytes % (Manual) 1, Monocytes % (Manual) 4, Macrocytosis SLIGHT, Sodium Level 139, Potassium Level 4.3, Chloride Level 93, Carbon Dioxide Level 35, Anion Gap 11, Blood Urea Nitrogen 29, Creatinine 0.77, Estimat Glomerular Filtration Rate > 60, BUN/Creatinine Ratio 38, Glucose Level 244, Calcium Level 8.9, Corrected Calcium 9.3, Magnesium Level 2.2, Total Bilirubin 0.5, Aspartate Amino Transf (AST/SGOT) 13, Alanine Aminotransferase (ALT/SGPT) 50, Alkaline Phosphatase 124, Total Protein 6.1, Albumin 3.5 01/07/18 11:06: Glucometer 412 01/07/18 16:41: Glucometer 308 01/07/18 20:42: Glucometer 295 01/08/18 03:55: White Blood Count 8.3, Red Blood Count 3.57, Hemoglobin 10.9, Hematocrit 37, Mean Corpuscular Volume 104, Mean Corpuscular Hemoglobin 31, Mean Corpuscular Hemoglobin Concent 29, Red Cell Distribution Width 18.5, Platelet Count 477, Mean Platelet Volume 9.8, Sodium Level 143, Potassium Level 4.2, Chloride Level 92, Carbon Dioxide Level 38, Anion Gap 13, Blood Urea Nitrogen 31, Creatinine 0.73, Estimat Glomerular Filtration Rate > 60, BUN/Creatinine Ratio 42, Glucose Level 244, Calcium Level 9.0 01/08/18 11:17: Glucometer 263 01/08/18 16:06: Glucometer 299 01/08/18 20:04: Glucometer 273 01/09/18 05:47: Glucometer 313 01/09/18 06:03: White Blood Count 9.4, Red Blood Count 3.16, Hemoglobin 9.9, Hematocrit 33, Mean Corpuscular Volume 103, Mean Corpuscular Hemoglobin 31, Mean Corpuscular Hemoglobin Concent 30, Red Cell Distribution Width 17.9, Platelet Count 425, Mean Platelet Volume 9.9, Neutrophils (%) (Auto) 90, Lymphocytes (%) (Auto) 4, Monocytes (%) (Auto) 6, Eosinophils (%) (Auto) 0, Basophils (%) (Auto) 0, Neutrophils # (Auto) 8.4, Lymphocytes # (Auto) 0.4, Monocytes # (Auto) 0.6, Eosinophils # (Auto) 0.0, Basophils # (Auto) 0.0, Sodium Level 140, Potassium Level 4.5, Chloride Level 92, Carbon Dioxide Level 35, Anion Gap 13, Blood Urea Nitrogen 35, Creatinine 0.69, Estimat Glomerular Filtration Rate > 60, BUN/ Creatinine Ratio 51, Glucose Level 345, Calcium Level 7.9, Corrected Calcium 8.6 , Total Bilirubin 0.7, Aspartate Amino Transf (AST/SGOT) 15, Alanine Aminotransferase (ALT/SGPT) 34, Alkaline Phosphatase 106, Total Protein 5.4, Albumin 3.1 01/09/18 10:58: Glucometer 247 01/09/18 16:21: Glucometer 324 01/09/18 20:51: Glucometer 315 01/10/18 06:00: White Blood Count 10.2, Red Blood Count 3.77, Hemoglobin 11.6, Hematocrit 38, Mean Corpuscular Volume 102, Mean Corpuscular Hemoglobin 31, Mean Corpuscular Hemoglobin Concent 30, Red Cell Distribution Width 17.8, Platelet Count 494, Mean Platelet Volume 10.0, Neutrophils (%) (Auto) 94, Lymphocytes (%) (Auto) 2, Monocytes (%) (Auto) 4, Eosinophils (%) (Auto) 0, Basophils (%) (Auto) 0, Neutrophils # (Auto) 9.6, Lymphocytes # (Auto) 0.2, Monocytes # (Auto) 0.4, Eosinophils # (Auto) 0.0, Basophils # (Auto) 0.0, Sodium Level 142, Potassium Level 4.7, Chloride Level 88, Carbon Dioxide Level 43, Anion Gap 11, Blood Urea Nitrogen 30, Creatinine 0.68, Estimat Glomerular Filtration Rate > 60, BUN/ Creatinine Ratio 44, Glucose Level 287, Calcium Level 9.1, Magnesium Level 2.4 01/10/18 06:10: Glucometer 291 10/5/18 11:28: Glucometer 148 Discharge Home Medications: Active Scripts Active Eliquis (Apixaban) 5 Mg Tablet 5 Mg PO BID 30 Days Azithromycin 250 Mg Tablet 250 Mg PO DAILY 4 Days Cefdinir 300 Mg Capsule 300 Mg PO BID 4 Days Reported Xanax (Alprazolam) 0.25 Mg Tablet 0.25 Mg PO Q12H PRN Promethazine-Codeine Syrup (Promethazine HCl/Codeine) 118 Ml Syrup 10 Ml PO Q8H PRN Hydrocodone-Acetamin 5-325 mg (Hydrocodone/Acetaminophen) 1 Each Tablet 1 Tab PO Q8H PRN Albuterol Sulfate 2.5 Mg/3 Ml Vial.neb 2.5 Mg NEB Q4H PRN Novolog Flexpen (Insulin Aspart) 300 Units/3 Ml Solution SQ AC 0-200 = 0 UNITS 201-250= 3 UNITS 251-300= 5 UNITS 301-350= 7 UNITS 351-400= 9 UNITS >400= CALL PCP Metoprolol Tartrate 50 Mg Tablet 50 Mg PO BID Protonix (Pantoprazole Sodium) 40 Mg Tablet.dr 40 Mg PO 1400 Acid Investigation Clerk (FAMOTIDINE) (Famotidine) 20 Mg Tablet 20 Mg PO BID Vitamin D-3 (Cholecalciferol (Vitamin D3)) 2,000 Unit Capsule 2,000 Unit PO DAILY Klor-Con Sprinkle (Potassium Chloride) 10 Meq Capsule.er 10 Meq PO DAILY Furosemide 20 Mg Tablet 20 Mg PO DAILY Calcium (Calcium Carbonate) 500 Mg Tablet 500 Mg PO BID Metformin HCl 500 Mg Tablet 500 Mg PO BID WITH MEALS Cartia Xt (Diltiazem HCl) 240 Mg Cap.er.24h 240 Mg PO DAILY Aspirin EC (Aspirin) 81 Mg Tablet.dr 81 Mg PO DAILY Alendronate Sodium 70 Mg Tablet 70 Mg PO SA Stress Formula (Multivits,Stress Formula) 1 Each Tablet 1 Tab PO DAILY Atorvastatin Calcium 40 Mg Tablet 40 Mg PO HS Cetirizine HCl 10 Mg Tablet 10 Mg PO HS Levothyroxine Sodium 50 Mcg Tablet 50 Mcg PO 1400 Instructions to patient/family Please see electronic discharge instructions given to patient. Clinical Quality Measures DVT/VTE Risk/Contraindication: Risk Factor Score Per Nursin RFS Level Per Nursing on Admit: 2=Moderate Contraindications-Pharm: Other *list below* WEST MCCAULEY DO Jan 14, 2018 19:15
== END 2018-01-10 13:15 | DRG 193 ==
LOC: EDUNIT# 09:08 → ER 09:10 → 4TH 11:55 → ICU 01-05 09:25 → 4TH 01-08 14:28
PROVIDERS: ADMIT Family Medicine; ATTEND Family Medicine
PROC: 5A2204Z Restoration of Cardiac Rhythm, Single (ICD-10-PCS; principal; 2018-01-08)
DX: J18.9 Pneumonia, unspecified organism (principal); J44.0 Chronic obstructive pulmonary disease with (acute) lower respiratory infection; J44.1 Chronic obstructive pulmonary disease with (acute) exacerbation; J96.21 Acute and chronic respiratory failure with hypoxia; J96.22 Acute and chronic respiratory failure with hypercapnia; I25.810 Atherosclerosis of coronary artery bypass graft(s) without angina pectoris; E09.51 Drug or chemical induced diabetes mellitus with diabetic peripheral angiopathy without gangrene; I48.92 Unspecified atrial flutter; I48.0 Paroxysmal atrial fibrillation; Z66 Do not resuscitate; I25.10 Atherosclerotic heart disease of native coronary artery without angina pectoris; E11.65 Type 2 diabetes mellitus with hyperglycemia; I10 Essential (primary) hypertension; K21.9 Gastro-esophageal reflux disease without esophagitis; E03.9 Hypothyroidism, unspecified; F41.9 Anxiety disorder, unspecified; J30.2 Other seasonal allergic rhinitis; M81.0 Age-related osteoporosis without current pathological fracture; M19.91 Primary osteoarthritis, unspecified site; E78.00 Pure hypercholesterolemia, unspecified; Z85.118 Personal history of other malignant neoplasm of bronchus and lung; Z90.2 Acquired absence of lung [part of]; Z92.21 Personal history of antineoplastic chemotherapy; Z95.1 Presence of aortocoronary bypass graft; Z79.01 Long term (current) use of anticoagulants; Z87.891 Personal history of nicotine dependence; Z95.5 Presence of coronary angioplasty implant and graft; Z79.84 Long term (current) use of oral hypoglycemic drugs; I27.20 Pulmonary hypertension, unspecified; E87.5 Hyperkalemia
CPT/HCPCS: 36415; 36600; 71045; 71046; 80048; 80053; 81000; 82805; 82962; 83605; 83735; 83880; 84443; 84484; 85007; 85025; 85027; 85610; 85730; 87040; 87070; 87077; 87088; 87205; 93005; 93306; 93312; 94640; 94660; 94664; 94760; 96361; 96365; 96375

== ENCOUNTER 2018-01-14 22:48 | Emergency (ER) | payer MEDICARE, OTHER ==
[~2018-01-14] VITALS: Ht 157.5 cm; Wt 54.4 kg
[~2018-01-14 22:48] MED LIST changes: +ALPR0.25 PO; +APIX5TAB PO; +AZIT250T12 PO; +FAMO20TA3 PO; +HYDR-3812 PO; +INSU100I14 SQ; +PANT40TA2 PO
[2018-01-14] MEDS ORDERED: RT-ALBUTEROL/IPRATROPIUM 3 ML (DUONEB) VIAL ONE (22:56)
[2018-01-14] MEDS ORDERED: RT-ALBUTEROL SULF 2.5 MG/3 ML PRE-MIX VIAL ONE (23:20)
[2018-01-14] MEDS ORDERED: RT-ALBUTEROL SULF 2.5 MG/3 ML PRE-MIX VIAL INH STA (23:25)
[2018-01-14] MEDS ORDERED: RT-ALBUTEROL/IPRATROPIUM 3 ML (DUONEB) VIAL INH ONE (23:30)
[2018-01-14 23:33] LABS: BASOPHILS % (AUTO) 0 % (0-10); EOSINOPHILS % (AUTO) 0 % (0-10); HEMATOCRIT 36 % (35-52); HEMOGLOBIN 10.8 G/DL (11.5-16.0); LYMPHOCYTES # (AUTO) 0.7 X 10^3 (1.0-4.0); LYMPHOCYTES % (AUTO) 4 % (12-44); MEAN CORPUSCULAR HEMOGLOBIN 31 PG (25-34); MEAN CORPUSCULAR HGB CONC 30 G/DL (32-36); MEAN CORPUSCULAR VOLUME 103 FL (80-99); MONOCYTES # (AUTO) 1.3 X 10^3 (0.0-1.0); MONOCYTES % (AUTO) 8 % (0-12); NEUTROPHILS # (AUTO) 13.3 X 10^3 (1.8-7.8); NEUTROPHILS % (AUTO) 87 % (42-75); PLATELET COUNT 378 10^3/uL (130-400); RED BLOOD COUNT 3.48 10^6/uL (4.35-5.85); RED CELL DISTRIBUTION WIDTH 17.4 % (10.0-14.5); WHITE BLOOD COUNT 15.3 10^3/uL (4.3-11.0)
--- NOTE | 2018-01-14 23:33 | ED Respiratory ---
General Stated Complaint: STATS LOW Source: patient, caregiver Exam Limitations: no limitations History of Present Illness Date Seen by Provider: Jan 14, 2018 Time Seen by Provider: 23:16 Initial Comments Patient presents to ER by [facility]ance [facility] with chief complaint that for nursing staff she was having some low oxygen sats in the 50- 65% range and was refusing to wear her nasal cannula or her CPAP mask. She says she did not want to work as the CPAP hurts her face. She was ordered just last night by Dr. Mccauley because her sats were low and they thought might help her. She has a history of COPD recently was in the hospital. She's not on steroids or antibiotics. She's been having occasional dry cough she says. She quit smoking 18 years ago. She's having no pain anywhere. Upon arrival she was on a nonrebreather at 4 L and 97%. She had some wheezing so a DuoNeb was given. The patient denies any breathing treatments were given to her at the [place] [facility]. The caregiver who accompanied her is not sure since she just was called in to take her to the ER. Allergies and Home Medications Allergies Coded Allergies: Penicillins (Verified Allergy, Severe, ANAPHYLAXIS (Pt has received Cefazolin & Cefepime w/o issue), 01/03/18) hydrochlorothiazide (Verified Allergy, Intermediate, RASH, 01/29/17) penicillin G (Verified Allergy, Unknown, 09/04/16) Home Medications Albuterol Sulfate 2.5 Mg/3 Ml Vial.neb, 2.5 MG NEB Q4H PRN for SHORTNESS OF BREATH, (Reported) Alendronate Sodium 70 Mg Tablet, 70 MG PO Sa, (Reported) Alprazolam 0.25 Mg Tablet, 0.25 MG PO Q12H PRN for ANXIETY, (Reported) Apixaban 5 Mg Tablet, 5 MG PO BID Prescribed by: WEST MCCAULEY on 01/10/18 1308 Aspirin 81 Mg Tablet.dr, 81 MG PO DAILY, (Reported) Atorvastatin Calcium 40 Mg Tablet, 40 MG PO HS, (Reported) Azithromycin 250 Mg Tablet, 250 MG PO DAILY Prescribed by: ROYCE MACHUCA on 01/10/18 1143 Calcium Carbonate 500 Mg Tablet, 500 MG PO BID, (Reported) Cefdinir 300 Mg Capsule, 300 MG PO BID Prescribed by: ROYCE MACHUCA on 01/10/18 1143 Cetirizine HCl 10 Mg Tablet, 10 MG PO HS, (Reported) Cholecalciferol (Vitamin D3) 2,000 Unit Capsule, 2,000 UNIT PO DAILY, (Reported) Diltiazem HCl 240 Mg Cap.er.24h, 240 MG PO DAILY, (Reported) Famotidine 20 Mg Tablet, 20 MG PO BID, (Reported) Furosemide 20 Mg Tablet, 20 MG PO DAILY, (Reported) Hydrocodone/Acetaminophen 1 Each Tablet, 1 TAB PO Q8H PRN for PAIN-MODERATE, ( Reported) Insulin Aspart 300 Units/3 Ml Solution, SQ AC, (Reported) 0-200 = 0 UNITS 201-250= 3 UNITS 251-300= 5 UNITS 301-350= 7 UNITS 351-400= 9 UNITS >400= CALL PCP Levothyroxine Sodium 50 Mcg Tablet, 50 MCG PO 1400, (Reported) Metformin HCl 500 Mg Tablet, 500 MG PO BID WITH MEALS, (Reported) Metoprolol Tartrate 50 Mg Tablet, 50 MG PO BID, (Reported) Multivits,Stress Formula 1 Each Tablet, 1 TAB PO DAILY, (Reported) Pantoprazole Sodium 40 Mg Tablet.dr, 40 MG PO 1400, (Reported) Potassium Chloride 10 Meq Capsule.er, 10 MEQ PO DAILY, (Reported) Promethazine HCl/Codeine 118 Ml Syrup, 10 ML PO Q8H PRN for COUGH, (Reported) Patient Home Medication List Home Medication List Reviewed: Yes Review of Systems Review of Systems Constitutional: No chills, No diaphoresis, No fever, No malaise EENTM: No hearing loss, No ear pain Respiratory: cough; No phlegm, No short of breath; wheezing Cardiovascular: No chest pain; edema; No palpitations Gastrointestinal: No abdominal pain, No constipation, No diarrhea Genitourinary: No discharge, No dysuria Past Uvrgucj-Visubx-Lngdnc Hx Patient Social History Alcohol Use: Denies Use Smoking Status: Former Smoker Type Used: Cigarettes Former Smoker, Quit: Jan 28, 2013 Recent Foreign Travel: No Contact w/Someone Who Travel: No Recent Hopitalizations: Yes (ED FOR FALL) Immunizations Up To Date Tetanus Booster (TDap): Unknown PED Vaccines UTD: Yes Date of Pneumonia Vaccine: Jan 07, 2016 Date of Influenza Vaccine: Jan 06, 2017 Seasonal Allergies Seasonal Allergies: Yes Past Medical History Surgeries: Yes Cardiac, CABG, Coronary Stent, Lobectomy, Orthopedic, Vascular Surgery Respiratory: Yes (chronic hypoxia) Pneumonia, Chronic Bronchitis, COPD Currently Using CPAP: No Currently Using BIPAP: No Cardiac: Yes Atrial Fibrillation, Coronary Artery Disease, High Cholesterol, Hypertension, Peripheral Vascular Neurological: No Reproductive Disorders: Yes (26 YRS. 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 [employer] History: Menopausal Sexually Transmitted Disease: No HIV/AIDS: No Genitourinary: No Gastrointestinal: Yes ("BUTTERFLY" HERNIA) Abdominal Hernia, Gastroesophageal Reflux Musculoskeletal: Yes (RIGHT HIP FX/ORIF) Osteoporosis, Arthritis, Fractures Endocrine: Yes Hypothyroidsim, Diabetes, Non-Insulin dep HEENT: Yes Cataract Loss of Vision: Denies Hearing Impairment: Denies Cancer: Yes Lung Did You Recieve Any Treatments: Yes What Type of Treatment Did You: Chemotherapy, Radiation, Surgical Intervention Psychosocial: Yes Anxiety Integumentary: No Blood Disorders: No Adverse Reaction/Blood Tranf: No Family Medical History Chest pain 09 SISTER Congestive heart failure G-MA Family history: Cardiovascular disease 03 FATHER (68) 09 SISTER Family history: Hypertension 03 FATHER 09 SISTER G-MA Stroke No Pertinent Family Hx Physical Exam Vital Signs - First Documented 01/14/18 23:04 Pulse Ox 97 O2 Delivery Simple Mask O2 Flow Rate 3.00 Capillary Refill : Height: 5'3.00" Weight: 111lbs. 7.0oz. 50.456028rd; 18.1 BMI Method:Estimated General Appearance: WD/WN, no apparent distress Eyes: Bilateral Eye Normal Inspection, Bilateral Eye PERRL, Bilateral Eye EOMI HEENT: PERRL/EOMI, normal ENT inspection, pharynx normal Neck: non-tender, full range of motion, normal inspection, other (JVD distention 2 cm above the sternal notch) Respiratory: chest non-tender, no respiratory distress, accessory muscle use ( mild), rales (few scattered), wheezing, expiration Cardiovascular: normal peripheral pulses, regular rate, rhythm, other (1+ pitting edema bilateral lower pedal) Gastrointestinal: non tender, soft Extremities: normal capillary refill, pedal edema (1+) Neurologic/Psychiatric: alert, oriented x 3 Skin: normal color, warm/dry Progress/Results/Core Measures Suspected Sepsis SIRS Temperature: Pulse: Respiratory Rate: Laboratory Tests 01/14/18 23:25: White Blood Count 15.3H Blood Pressure / Mean: Laboratory Tests 01/14/18 23:25: Creatinine 0.98, Platelet Count 378, Total Bilirubin 0.5 Results/Orders Lab Results Laboratory Tests Test 01/14/18 23:25 01/14/18 23:45 Range/Units White Blood Count 15.3 H 4.3-11.0 10^3/uL Red Blood Count 3.48 L 4.35-5.85 10^6/uL Hemoglobin 10.8 L 11.5-16.0 G/DL Hematocrit 36 35-52 % Mean Corpuscular Volume 103 H 80-99 FL Mean Corpuscular Hemoglobin 31 25-34 PG Mean Corpuscular Hemoglobin Concent 30 L 32-36 G/DL Red Cell Distribution Width 17.4 H 10.0-14.5 % Platelet Count 378 130-400 10^3/uL Mean Platelet Volume 10.0 7.4-10.4 FL Neutrophils (%) (Auto) 87 H 42-75 % Lymphocytes (%) (Auto) 4 L 12-44 % Monocytes (%) (Auto) 8 0-12 % Eosinophils (%) (Auto) 0 0-10 % Basophils (%) (Auto) 0 0-10 % Neutrophils # (Auto) 13.3 H 1.8-7.8 X 10^3 Lymphocytes # (Auto) 0.7 L 1.0-4.0 X 10^3 Monocytes # (Auto) 1.3 H 0.0-1.0 X 10^3 Eosinophils # (Auto) 0.0 0.0-0.3 10^3/uL Basophils # (Auto) 0.0 0.0-0.1 10^3/uL Sodium Level 139 135-145 MMOL/L Potassium Level 4.4 3.6-5.0 MMOL/L Chloride Level 87 L 98-107 MMOL/L Carbon Dioxide Level 40 H 21-32 MMOL/L Anion Gap 12 5-14 MMOL/L Blood Urea Nitrogen 21 H 7-18 MG/DL Creatinine 0.98 0.60-1.30 MG/DL Estimat Glomerular Filtration Rate 56 BUN/Creatinine Ratio 21 Glucose Level 493 *H 70-105 MG/DL Calcium Level 9.3 8.5-10.1 MG/DL Corrected Calcium 9.7 8.5-10.1 MG/DL Total Bilirubin 0.5 0.1-1.0 MG/DL Aspartate Amino Transf (AST/SGOT) 17 5-34 U/L Alanine Aminotransferase (ALT/SGPT) 29 0-55 U/L Alkaline Phosphatase 100 40-136 U/L C-Reactive Protein High Sensitivity 0.46 0.00-0.50 MG/DL B-Type Natriuretic Peptide 1470.8 H <100.0 PG/ML Total Protein 5.9 L 6.4-8.2 GM/DL Albumin 3.5 3.2-4.5 GM/DL Blood Gas Puncture Site RIGHT RADIAL Blood Gas Patient Temperature 99.8 Arterial Blood pH 7.30 *L 7.37-7.43 Arterial Blood Partial Pressure CO2 99 *H 35-45 MMHG Arterial Blood Partial Pressure O2 165 H 79-93 MMHG Arterial Blood HCO3 46 *H 23-27 MMOL/L Arterial Blood Total CO2 49.4 H 21.0-31.0 MMOL/L Arterial Blood Oxygen Saturation 100 94-100 % Arterial Blood Base Excess 19.3 H -2.5-2.5 MMOL/L Bruce Test POSITIVE Blood Gas Ventilator Setting YES Blood Gas Inspired Oxygen 3L OXYMASK My Orders Orders - DIYA RIVERA Albuterol/Ipra Inhalation Soln (Duoneb I (01/14/18 22:56) Albuterol Pre-Mix Nebs (Rt) (Proventil (01/14/18 23:20) Albuterol Pre-Mix Nebs (Rt) (Proventil (01/14/18 23:25) Albuterol/Ipra Inhalation Soln (Duoneb I (01/14/18 23:30) BNP (01/14/18 23:25) Svn Small Volume Nebulizer (01/14/18 23:25) Arterial Blood Gas (01/14/18 23:25) Hs C Reactive Protein (01/14/18 23:25) Arterial Blood Draw (01/14/18 23:45) Insulin (Regular) Human (Humulin R (Per (01/15/18 00:30) Diltiazem Injection (Cardizem Injection) (01/15/18 00:30) Furosemide Injection (Lasix Injection) (01/15/18 00:30) Medications Given in ED Current Medications Medications Dose Ordered Sig/Imelda Route Start Time Stop Time Status Last Admin Dose Admin Albuterol Sulfate 2.5 mg STK-MED ONCE .ROUTE 01/14/18 23:20 01/14/18 23:24 DC 01/14/18 23:27 5 MG Albuterol/ Ipratropium 3 ml STK-MED ONCE .ROUTE 01/14/18 22:56 01/14/18 23:02 DC 01/14/18 23:13 3 ML Vital Signs/I&O 01/14/18 01/14/18 23:04 23:27 Pulse Ox 97 95 O2 Delivery Simple Mask OxyMask O2 Flow Rate 3.00 3.00 Capillary Refill : Progress Note #1: Time: 23:32 Progress Note Patient is DO NOT RESUSCITATE and sounds like she is having a COPD exacerbation so we will give her 5 more milligrams of albuterol. Her blood pressures quite elevated but her heart rates been between 80 and 100 with atrial flutter. Does not appear septic. No fever. We'll check some basic labs give chest x-ray and EKG just to document her a flutter. Last admission was for COPD, pneumonia. She also had elevated BNP of 2500 that time. CAD. S/p CABG Feb [address] Guzman in [place], [place]. She had LEMUS to LAD, SVG to PDA, and sequential SVG to diagonal and OM. Last cardiac cath was on 07/12/15 and it showed multivessel CAD with patent SVG to distal RCA, patent LEMUS to distal LAD, and a sequential SVG with 50-60% mid-graft stenosis that was patent to first diag but occluded to OM. She underwent successful balloon angioplasty of the OM to which the graft was occluded. continue to monitor at this time Echocardiogram showed normal left ventricle size and function, dilated left atrium, moderate mitral regurgitation, moderate to severe tricuspid regurgitation. Progress Note #2: Time: 00:28 Progress Note Patient's blood pressure remains elevated heart rate is elevated 105 with atrial flutter. She is on Cardizem, metoprolol and she is received DuoNeb and 2 albuterols. Her white count is elevated and chest x-ray does show some fluffy edema. She's not requiring CPAP right now but her BNP is elevated at 1400 over her normal 200-400. We are going to start some Lasix and recommend inpatient. Progress Note #3: Time: 00:43 Progress Note We discussed all the findings and the plan for a inpatient stay with the patient and she is alert and oriented and she declines a stay in the hospital. We then discussed about comfort cares and hospice and she thought that this would be an excellent way to go. She would like to go back to [facility] tonight and get some sleep in the morning she would like hospice to consult. ECG Initial ECG Impression Date: Jan 14, 2018 Initial ECG Impression Time: 23:04 Initial ECG Rate: 81 Initial ECG Rhythm: A Fib/Flutter Initial ECG Intervals: QT (562) Initial ECG Impression: Atrial Fibrillation Initial ECG Comparisson: No Previous ECG Available Comment Atrial flutter without ST elevation or depression Diagnostic Imaging Diagonstic Imaging: Xray Plain Films/CT/US/NM/MRI: chest (1v) Comments Infiltrate improved from previous x-ray. Mild fluffy edema Reviewed: Reviewed by Me Departure Impression Primary Impression: CHF exacerbation Qualified Codes: I50.9 - Heart failure, unspecified Additional Impressions: COPD exacerbation Need for comfort care Disposition: 01 HOME, SELF-CARE Condition: Stable Departure-Patient Inst. Decision time for Depature: 00:50 Referrals: WEST MCCAULEY DO (PCP/Family) Primary Care Physician Patient Instructions: Palliative Care Add. Discharge Instructions: Return to [facility] comfort cares only. Consult hospice in the morning and notify family and primary care office in the morning. Copy Copies To 1: WEST MCCAULEY DO; NORMA ALVARADO MD FACP FAC CCDS DIYA RIVERA Jan 14, 2018 23:32
[2018-01-14 23:52] LABS: ABG BASE EXCESS 19.3 MMOL/L (-2.5-2.5); ABG OXYGEN SATURATION 100 % (94-100); ABG PO2 165 MMHG (79-93); ABG TCO2 49.4 MMOL/L (21.0-31.0)
[2018-01-14 23:54] LABS: ABG PCO2 99 MMHG (35-45); ALLENS TEST POSITIVE; INSPIRED O2 3L OXYMASK; PATIENT TEMP 99.8; VENTILATOR YES
[2018-01-14 23:57] LABS: ALBUMIN 3.5 GM/DL (3.2-4.5); BILIRUBIN,TOTAL 0.5 MG/DL (0.1-1.0); CALCIUM 9.3 MG/DL (8.5-10.1); CREATININE SERUM 0.98 MG/DL (0.60-1.30); POTASSIUM 4.4 MMOL/L (3.6-5.0); TOTAL PROTEIN 5.9 GM/DL (6.4-8.2)
[2018-01-15] MEDS ORDERED: inSUlin (REGULAR) HUMAN 1 UNIT/0.01 ML (CHARGE PER UNIT) SC ONE (00:30)
[2018-01-15] MEDS ORDERED: FUROSEMIDE 40 MG/4 ML INJ (LASIX) IVP ONE (00:30)
[2018-01-15] MEDS ORDERED: DILTIAZEM 25 MG/5 ML INJ (CARDIZEM) VIAL IVP ONE (00:30)
[2018-01-15 01:00] VITALS: BP 188/82
[2018-01-15 01:21] LABS: ANISOCYTOSIS SLIGHT; LYMPHOCYTES % (MANUAL) 3 %; METAMYELOCYTES % 4 %; MONOCYTES % (MANUAL) 5 %; MYELOCYTES % 1 %; NEUTROPHILS % (MANUAL) 87 %
[2018-01-15] MEDS ORDERED: LORA2ORA PO (01:36)
[2018-01-15] MEDS ORDERED: MORP100S3 PO (01:36)
[2018-01-15] MEDS ORDERED: MORP-33 PO (01:36)
--- NOTE | 2018-01-15 06:48 | Diagnostic Imaging Report ---
INDICATION: Shortness of breath. Comparison with 01/10/2018. FINDINGS: There is some obstructive interstitial lung disease again noted. Cardiomegaly with median sternotomy changes are present. No evidence of pleural effusion or pneumothorax. No evidence of pulmonary venous congestion. The nodular density reported on previous study in the left lower lung is not appreciated on today's exam. IMPRESSION: Cardiomegaly with obstructive interstitial lung disease. No acute changes demonstrated. Dictated by: Dictated on workstation # [id number]
== END 2018-01-15 01:35 | disposition home or self-care (01) ==
LOC: EDUNIT# 22:48 → ER 22:49
DX: I11.0 Hypertensive heart disease with heart failure (principal); I50.9 Heart failure, unspecified; J44.1 Chronic obstructive pulmonary disease with (acute) exacerbation; I48.91 Unspecified atrial fibrillation; I25.10 Atherosclerotic heart disease of native coronary artery without angina pectoris; I73.9 Peripheral vascular disease, unspecified; K21.9 Gastro-esophageal reflux disease without esophagitis; M81.0 Age-related osteoporosis without current pathological fracture; E03.9 Hypothyroidism, unspecified; E11.9 Type 2 diabetes mellitus without complications; F41.9 Anxiety disorder, unspecified; Z85.118 Personal history of other malignant neoplasm of bronchus and lung; Z82.49 Family history of ischemic heart disease and other diseases of the circulatory system; Z99.81 Dependence on supplemental oxygen; Z51.5 Encounter for palliative care; Z92.21 Personal history of antineoplastic chemotherapy; Z87.19 Personal history of other diseases of the digestive system; Z88.0 Allergy status to penicillin; Z88.8 Allergy status to other drugs, medicaments and biological substances; Z79.51 Long term (current) use of inhaled steroids; Z79.01 Long term (current) use of anticoagulants; Z79.82 Long term (current) use of aspirin; Z79.4 Long term (current) use of insulin; Z87.891 Personal history of nicotine dependence; Z95.1 Presence of aortocoronary bypass graft; Z87.01 Personal history of pneumonia (recurrent); Z98.890 Other specified postprocedural states; Z90.2 Acquired absence of lung [part of]
CPT/HCPCS: 36415; 36600; 71045; 80053; 82805; 83880; 85007; 85027; 86141; 93005; 93041; 94640